=== PATIENT | female | born 1955 | race Caucasian/White ===

== ENCOUNTER 2020-01-23 21:16 | Emergency (ER) | payer MEDICARE, OTHER, SELFPAY ==
--- NOTE | ~2020-01-23 | XR_ITS ---
EXAMINATION: XR chest 2V DATE: 01/23/2020 22:09 INDICATION: Shortness of breath. TECHNIQUE: Frontal and lateral views of the chest were obtained. COMPARISON: Chest 2 views 05/08/2017, CT abdomen and pelvis/01/04 FINDINGS: There is no pneumonia, pleural effusion, or pneumothorax. Cardiomegaly is noted. IMPRESSION: 1. Cardiomegaly. Reviewed, dictated and finalized at location A. AND ALCOHOL COUNSELLOR IMPRESSION: 1. Cardiomegaly.
[2020-01-23 21:21] VITALS: BP 129/59; PULSE 89; RESP 24; TEMP 37; O2SAT 95
--- NOTE | 2020-01-23 21:35 | ED.WEAKNESS ---
HPI - Weakness General Chief complaint: Weakness Stated complaint: blood sugar high -500's/blood pressure 70/40 Time Seen by Provider: 01/23/20 21:26 Source: patient and family History of Present Illness HPI Narrative: 64-year-old female presents to emergency department for weakness and altered mental status tonight. Per family, patient had episode of dozing off tonight. Her daughter checked her blood sugar, which showed an elevated level. Additionally, patient had a low blood pressure reading. Patient usually walks with a walker, but is not having the energy to get up to use it. Patient denies any fever or chills. No chest pain or shortness of breath. No abdominal pain. No nausea or vomiting. Related Data Home Medications Medication Instructions Recorded Confirmed atorvastatin 10 mg tablet 10 mg PO DAILY 07/27/19 01/28/20 ferrous sulfate 325 mg (65 mg 325 mg PO DAILY 07/27/19 01/28/20 iron) tablet gabapentin 400 mg capsule 400 mg PO TID 07/27/19 01/28/20 levothyroxine 25 mcg capsule 25 mcg PO DAILY 07/27/19 01/28/20 lisinopril 40 mg tablet 40 mg PO DAILY 07/27/19 01/28/20 quetiapine 200 mg tablet 200 mg PO BID 07/27/19 01/28/20 paroxetine HCl 20 mg tablet 40 mg PO DAILY tablet 11/30/19 01/28/20 Allergies Allergy/AdvReac Type Severity Reaction Status Date / Time ciprofloxacin Allergy Mild Hives Verified 01/25/20 10:40 metronidazole Allergy Mild Hives Verified 01/25/20 10:40 divalproex sodium Allergy Unknown Unknown Verified 01/25/20 10:40 vancomycin Allergy Unknown Unknown Verified 01/25/20 10:40 Review of Systems Review of Systems: Narrative: CONSTITUTIONAL: Denies fever, chills, or sweats. EYES: Denies visual changes, redness, or discharge. ENT: Denies rhinorrhea, congestion, sore throat, or otalgia. CARDIOVASCULAR: Denies chest pain, palpitations, or edema. RESPIRATORY: Denies cough or dyspnea. GASTROINTESTINAL: Denies abdominal pain, nausea, vomiting, or diarrhea. GENITOURINARY: Denies dysuria or hematuria. SKIN: Denies rash or itching. MUSCULOSKELETAL: Denies back pain, joint pain, or myalgia. NEUROLOGIC: Denies headache, numbness, dizziness, or weakness. PSYCHIATRIC: Denies anxiety or depression. All systems reviewed & are unremarkable except as noted in HPI and below (ROS) PMFSH Past Medical History Medical History (Updated 01/28/20 @ 10:22 by Noreen Savage PA-C) Abnormality of gait and mobility Benign essential HTN Benign essential hypertension Brain hypoxia Chronic kidney disease due to diabetes mellitus RAMAN (generalized anxiety disorder) MALIA on CPAP Type 2 diabetes mellitus with hyperglycemia Family History Family History Father Diabetes mellitus Hypertension Patient's father is , Onset Age: 75 Family history of renal failure Mother Family history of malignant neoplasm of stomach Other Family history of arthritis Social History Social History (Updated 01/25/20 @ 10:41 by Nasreen oHlder, [facility]) Social History: Smoking status: Never smoker Second hand tobacco smoke exposure: No Alcohol intake: never Substance use: never Substance use type: does not use Living arrangements: with family Gender identity (if verbalized by the patient): Female Exam Narrative: Exam Narrative: GENERAL: Well-appearing, well-nourished, and in no acute distress. HEAD: Normocephalic, atraumatic. EYES: PERRLA and EOMI. ENT: Nares clear, no rhinorrhea or epistaxis. Mucous membranes moist. NECK: Supple. CHEST: Clear to auscultation. No respiratory distress. HEART: Regular rate and rhythm. No murmur heard. Normal peripheral pulses. ABDOMEN: Soft, nontender, nondistended, normal active bowel sounds. EXTREMITIES: Normal range of motion. No edema. SKIN: Warm, dry, no rash. NEURO: No focal deficits. Alert and oriented x3. PSYCH: Normal mood and affect. Course Reevaluation(s) Reevaluation #1: 2330 - BS 28
--- NOTE | 2020-01-23 21:36 | ECG_ITS ---
Measurements Intervals [employer] Rate: 76 P: 39 WI: 210 QRS: -16 QRSD: 121 T: 23 QT: 390 QTc: 441 Interpretive Statements SINUS RHYTHM WITH FIRST DEGREE AV BLOCK INTRAVENTRICULAR CONDUCTION DELAY DELAYED PRECORDIAL R/S TRANSITION ABNORMAL ECG Electronically Signed On 01-24-2020 7:08:02 FISH [employer]ER by Bulmaro Knight D.O.
[2020-01-23 21:47] VITALS: PULSE 76
--- NOTE | 2020-01-23 21:50 | PC.NURSE ---
Blood glucose was 567 at 21:49
[2020-01-23 21:51] LABS: Glucose Point of Care > 500 (65-105)
[2020-01-23] MEDS: SODIUM CHLORIDE 0.9% IV 1,000 ML 999 ML IV CONT ×2 (22:02→22:34)
[2020-01-23 22:08] LABS: Basophils Percent Auto 0.5 % (0.2-1.2); Eosinophils Absolute Auto 0.2 K/mm3 (0-0.3); Eosinophils Percent Auto 2.7 % (0-4.4); Fractional Inspired Oxygen 21 %; HCO3 VBG 23.6 mEq/l (24.0-30.0); Hematocrit 35.5 % (37.0-47.0); Hemoglobin 11.4 g/dL (12.0-15.0); Immature Granulocyte Absolute 0.03 K/mm3 (0.00-0.031); Immature Granulocyte Percent A 0.5 % (0-0.5); Lymphocytes Absolute Auto 1.49 K/mm3 (0.9-3.2); Lymphocytes Percent Auto 25.2 % (18.3-44.2); Mean Corpuscular HGB Conc 32.1 g/dl (32-36); Mean Corpuscular Hemoglobin 30.6 pg (26-34); Mean Corpuscular Volume 95.2 fl (80-100); Mean Platelet Volume 10.4 fl (7.4-10.4); Monocytes Absolute Auto 0.5 K/mm3 (0.1-0.6); Neutrophils Absolute Auto 3.7 K/mm3 (1.3-6.7); Neutrophils Percent Auto 62.1 % (45.5-73.1); PCO2 VBG 44.9 mmHg (42.0-48.0); PO2 VBG 49.1 mmHg (35.0-45.0); Platelet Count Result 244 k/mm3 (150-375); Red Blood Count 3.73 M/mm3 (4.2-5.4); Red Cell Distribution Width 14.6 % (11.5-14.5); White Blood Count 5.9 K/mm3 (4.5-10.0); pH VBG 7.339 (7.300-7.400)
[2020-01-23 22:09] LABS: Device ROOM AIR
[2020-01-23 22:22] LABS: Alanine Aminotransferase 36 U/L (4-35); Albumin Level 3.9 g/dL (3.5-5.1); Alkaline Phosphatase 190 U/L (38-126); Anion Gap 12 mmol/L (8-16); Aspartate Amino Transferase 23 U/L (14-36); Bilirubin,Total 0.4 mg/dL (0.2-1.3); Blood Urea Nitrogen 39 mg/dL (7-17); Calcium 9.7 mg/dL (8.4-10.2); Carbon Dioxide 26 mmol/L (22-30); Chloride 95 mmol/L (98-107); Estimated CRCL calculation 45 ml/min; Estimated Glomerular Filt Rate 32; Glucose 559 mg/dL (65-105); Potassium 4.7 mmol/L (3.4-5.0); Sodium 133 mmol/L (137-145)
[2020-01-23 22:25] LABS: Beta-Hydroxybutyrate/Acetoacetate 0.18 mmol/L (0.02-0.27)
[2020-01-23 22:26] VITALS: BP 104/53; PULSE 78; RESP 16; O2SAT 98
[2020-01-23] MEDS: INSULIN HUMAN REGULAR (*BKC) 100 UNITS/ML 10 UNITS IV PUSH (22:35)
--- NOTE | 2020-01-23 23:05 | PC.NURSE ---
Assumed care of pt. Report from ELLYN Robert
--- NOTE | 2020-01-23 23:21 | PC.NURSE ---
Pt. waiting for fluids to attempt for urine sample
[2020-01-24 00:01] VITALS: BP 121/67; PULSE 84; RESP 14; O2SAT 97
[2020-01-24 06:06] LABS: Glucose Point of Care 289 (65-105)
== END 2020-01-24 00:01 | disposition home or self-care (01) ==
PROVIDERS: Emergency Provider Emergency Medicine; PCP Family Medicine
DX: E11.65 Type 2 diabetes mellitus with hyperglycemia (principal); R55 Syncope and collapse; E11.22 Type 2 diabetes mellitus with diabetic chronic kidney disease; I12.9 Hypertensive chronic kidney disease with stage 1 through stage 4 chronic kidney disease, or unspecified chronic kidney disease; N18.9 Chronic kidney disease, unspecified; F41.1 Generalized anxiety disorder; G47.33 Obstructive sleep apnea (adult) (pediatric); I44.0 Atrioventricular block, first degree; I45.9 Conduction disorder, unspecified
CPT/HCPCS: 36415; 71046; 80053; 82010; 82803; 85025; 93005; 96361; 96374; 99284; J1815; J7030

== ENCOUNTER 2020-05-12 07:44 | Observation (INO) | payer MEDICARE, OTHER, SELFPAY ==
[2020-05-12] VITALS (19 sets, daily range): BP systolic 120–192; BP diastolic 74–119; PULSE 69–92; RESP 12–20; TEMP 36.2–36.8; O2SAT 96–100; BMI 40.0
--- NOTE | ~2020-05-12 | XR_ITS ---
EXAMINATION: XR chest 1V portable EXAM DATE: 05/12/2020 08:31 INDICATION: Cough. Transient alteration of awareness. TECHNIQUE: Portable AP frontal chest x-ray was obtained. Comparison is made to prior examination from 01/23/2020. FINDINGS: Patient is rotated to the right. The lungs are clear. There are no pleural effusions. The cardiac silhouette is enlarged. There is no pneumothorax suspected. The bones and soft tissues ar e unremarkable. IMPRESSION: Mild cardiomegaly. Reviewed, dictated and finalized at location B. OW PUMPER IMPRESSION: Mild cardiomegaly.
--- NOTE | ~2020-05-12 | CT_ITS ---
EXAMINATION: CT brain wo con DATE: 05/12/2020 09:08 INDICATION: Altered mental status, agitation TECHNIQUE: Computed tomography (CT) of the head was performed without intravenous contrast. The mA wa s adjusted according to patient size. Iterative reconstruction technique was employed. Exam dose: 68 1.00 mGy-cm total exam DLP. COMPARISON: 07/21/2018 MRI brain/brainstem 06/29/2017 MRI brain/brainstem 05/07/[address] brain FINDINGS: Stable left cerebellopontine angle mass, previously suggested meningioma. There is cerebral atherosclerosis. There is nonspecific diminished attenuation of the subcortical and periventricular cerebral white matter, likely due to chronic small vessel ischemic changes. No intracranial mass lesion or hemorrhage or cerebrovascular accident is evident. No midline shift or mass effect effect. No subdural or epidural hematoma. Bilateral hyperostosis frontalis interna, not likely of any clinical significance. There is nearly complete opacification of the right maxillary sinus and soft tissue thickening of the ethmoid septae, primarily on the right. The left maxillary, sphenoid and frontal sinuses are unremar kable. Normal development and aeration of the mastoid air cells. No fracture or bone destruction of the cranial vault. IMPRESSION: Stable left cerebellopontine angle mass Cerebral atherosclerosis and chronic small vessel ischemic changes of the cerebral white matter Nearly complete opacification of right maxillary sinus Reviewed, dictated and finalized at Location [facility]. Reviewed, dictated and finalized at location A. MIXER IMPRESSION: Stable left cerebellopontine angle mass Cerebral atherosclerosis and chronic small vessel ischemic changes of the cereb ral white matter Nearly complete opacification of right maxillary sinus
--- NOTE | 2020-05-12 07:59 | ED.GENADULT ---
HPI - General Adult General Chief complaint: Anxiety Stated complaint: agitation Time Seen by Provider: 05/12/20 07:46 Source: RN notes reviewed History of Present Illness HPI narrative: Patient presents emergency department from home for not feeling well. Patient states that she has been having nausea for the past 3 days she states that today she began to feel like something is wrong inside my body . She states that she has been out of her benztropine for the past 5 days and is normally on 0.5 mg 3 times daily patient states that she has had no fevers or chills no chest pain no shortness of breath no abdominal pain no vomiting no diarrhea or any other symptoms Related Data Home Medications Medication Instructions Recorded Confirmed atorvastatin 10 mg tablet 10 mg PO DAILY 07/27/19 05/12/20 ferrous sulfate 325 mg (65 mg 325 mg PO DAILY 07/27/19 05/12/20 iron) tablet gabapentin 400 mg capsule 400 mg PO TID 07/27/19 05/12/20 levothyroxine 25 mcg capsule 25 mcg PO DAILY 07/27/19 05/12/20 lisinopril 40 mg tablet 40 mg PO DAILY 07/27/19 05/12/20 quetiapine 200 mg tablet 200 mg PO BID 07/27/19 05/12/20 benztropine 0.5 mg PO TID 05/12/20 05/12/20 dapagliflozin [Farxiga] 10 mg PO DAILY 05/12/20 05/12/20 insulin detemir U-100 [Levemir 45 unit SUB-Q BID 05/12/20 05/12/20 FlexTouch U-100 Insuln] lactulose 10 g PO BID 05/12/20 05/12/20 melatonin 10 mg PO HS PRN 05/12/20 05/12/20 paroxetine HCl 20 mg PO QAM 05/12/20 05/12/20 Allergies Allergy/AdvReac Type Severity Reaction Status Date / Time ciprofloxacin Allergy Mild Hives Verified 05/12/20 12:08 metronidazole Allergy Mild Hives Verified 05/12/20 12:08 divalproex sodium Allergy Unknown Unknown Verified 05/12/20 12:08 vancomycin Allergy Unknown Unknown Verified 05/12/20 12:08 Review of Systems Review of Systems: Narrative: Gen.: Denies fevers or chills reports generally not feeling well Eyes: Denies eye pain or visual change ENT: Denies congestion Respiratory: Denies shortness of breath or cough CV: Denies chest pain or palpitations GI: Denies abdominal pain vomiting or diarrhea. Reports nausea denies burning, urgency, frequency or hematuria Musculoskeletal: Denies back pain or muscle pain Neuro: Denies numbness, tingling, weakness or focal weakness Skin: Denies rash Except as documented, all other systems reviewed and negative [facility] Past Medical History Medical History Abnormality of gait and mobility Benign essential HTN Benign essential hypertension Brain hypoxia Chronic kidney disease due to diabetes mellitus RAMAN (generalized anxiety disorder) MALIA on CPAP Type 2 diabetes mellitus with hyperglycemia Family History Family History Father Diabetes mellitus Hypertension Patient's father is , Onset Age: 75 Family history of renal failure Mother Family history of malignant neoplasm of stomach Other Family history of arthritis Social History Social History Social History: Smoking status: Never smoker Second hand tobacco smoke exposure: No Alcohol intake: never Substance use: never Substance use type: marijuana Other substance usage details: on occasion; afraid to ask doctor for a prescription, but it helps symptoms Gender identity (if verbalized by the patient): Female Spiritual care concerns: No Exam Narrative: Exam Narrative: APPEARANCE: Patient rolling around in bed nontoxic EYES: PERRL HEENT: Normocephalic, atraumatic, OMM RESPIRATORY: No respiratory distress Clear to auscultation bilaterally with no rhonchi wheezing or rales. CARDIOVASCULAR: Regular rate and rhythm without murmurs rubs or gallops. ABDOMINAL: Soft, nontender, nondistended, no rebound or guarding MUSCULOSKELETAl: Moves all extremities. No clubbing, cyanosis or edema. NEURO: Awake and
[2020-05-12] MEDS: BENZTROPINE MESYLATE 0.5 MG TABLET PO ×2 (08:17→16:01)
[2020-05-12 08:18] LABS: Basophils Percent Auto 0.3 % (0.2-1.2); Eosinophils Absolute Auto 0.2 K/mm3 (0-0.3); Eosinophils Percent Auto 2.8 % (0-4.4); Hematocrit 41.4 % (37.0-47.0); Hemoglobin 13.3 g/dL (12.0-15.0); Immature Granulocyte Absolute 0.02 K/mm3 (0.00-0.031); Immature Granulocyte Percent A 0.3 % (0-0.5); Lymphocytes Absolute Auto 1.67 K/mm3 (0.9-3.2); Lymphocytes Percent Auto 26.1 % (18.3-44.2); Mean Corpuscular HGB Conc 32.1 g/dl (32-36); Mean Corpuscular Hemoglobin 29.9 pg (26-34); Mean Platelet Volume 9.1 fl (7.4-10.4); Monocytes Absolute Auto 0.5 K/mm3 (0.1-0.6); Monocytes Percent Auto 7.5 % (2.6-8.5); Platelet Count Result 271 k/mm3 (150-375); Red Blood Count 4.45 M/mm3 (4.2-5.4); Red Cell Distribution Width 14.2 % (11.5-14.5); White Blood Count 6.4 K/mm3 (4.5-10.0)
[2020-05-12 08:30] LABS: Alanine Aminotransferase 25 U/L (4-35); Albumin Level 4.1 g/dL (3.5-5.1); Alkaline Phosphatase 118 U/L (38-126); Anion Gap 10 mmol/L (8-16); Aspartate Amino Transferase 25 U/L (14-36); Bilirubin,Total 0.4 mg/dL (0.2-1.3); Blood Urea Nitrogen 24 mg/dL (7-17); Calcium 9.6 mg/dL (8.4-10.2); Carbon Dioxide 21 mmol/L (22-30); Chloride 112 mmol/L (98-107); Estimated CRCL calculation 59 ml/min; Estimated Glomerular Filt Rate 45; Glucose 128 mg/dL (65-105); Prothrombin Time 13.9 Seconds (11.1-14.7); Sodium 143 mmol/L (137-145)
[2020-05-12 08:31] LABS: Partial Thromboplastin Time 31.4 SECONDS (22.3-36.8)
[2020-05-12 08:53] LABS: Add Urine Microscopic? YES; Appearance Urine Clear (Clear); Bilirubin Urine Negative (Negative); Blood Urine Negative (Negative); Color Urine Yellow (Yellow); Glucose Urine UA 3+ mg/dL (Negative); Ketones Urine Negative (Negative); Leukocyte Esterase Ur Negative LEU/UL (Negative); Mucus Urine Rare /lpf; Nitrate Urine Negative (Negative); Protein Urine 2+ mg/dL (Negative); RBC Urine 0-2 /hpf (0-2); Specific Grav Ur 1.025 (1.001-1.035); Squamous Epithelial Cell Urine Rare /hpf (Few); Urobilinogen Urine Negative mg/dL (<2.0); WBC Urine 0-3 /hpf
[2020-05-12] MEDS: ONDANSETRON INJ 4 MG/2 ML VIAL IV PUSH ×3 (09:44→22:11)
--- NOTE | 2020-05-12 11:40 | ADMGEN ---
This patient, Christine Michel, was admitted to -. Patient/family oriented to hospital policies and general routines including ID bracelet, bed and alarms, visiting hours, pain management, procedures, bathroom and other care routines, personal items, smoking policy, room service/diet, and visiting hours. Information on how to activate the Rapid Response Team has been discussed. Patient/Family are encouraged to report perceived risks to care and to ask questions if they do not understand what they are told or what they should do.
[2020-05-12] MEDS: SODIUM CHLORIDE 0.9% IV 1,000 ML 80 ML IV CONT (12:17)
--- NOTE | 2020-05-12 13:36 | PM.IMHP ---
H&P: HPI History of Present Illness Date/Time: 05/12/20 13:36 Chief Complaint: Nausea and vomiting. Narrative: Christine Michel is a 65 year old female with PMHx significant for T2DM insulin dependent, Alzheimer's Dementia,Iron deficiency anemia, Psychiatry illness well controlled at home. Patient has been in her usual state of health up until about a week or so when she run off her Benztropine medication and came down with dyskinesis nausea and vomiting for about 3 days now that got worse over the course of the last 24 hours or with intractable nausea and vomiting unable to keep anything down most of the history has been obtained by the that is sitting bedside, no fevers, no rigors, no chills, no cough, no sputum production, no hematemesis, no hematochezia, no loc, no syncope or near syncope, no sob. Preliminary work up is unrevealing. Patient received fluids and feels better no discomfort at time of visit. Review of Systems Review of Systems: Narrative: n/v/dyskinesia Constitutional: Comments: no fevers, no rigors, no chills. ENT: Comments: no nasal congestion, throat pain Cardiovascular: Comments: no chest pain, no pnd, no orthopnea. Respiratory: Comments: no sob, no cough, no sputum production. Gastrointestinal: Comments: n/v/ no abdominal pain. Genitourinary: Comments: no burning or pain with urination. Musculoskeletal: Comments: twitching Integumentary/Breasts: Comments: no rashes Neurologic: Comments: no sensory motor deficit [facility] Past Medical History Medical History Abnormality of gait and mobility Benign essential HTN Benign essential hypertension Brain hypoxia Chronic kidney disease due to diabetes mellitus RAMAN (generalized anxiety disorder) MALIA on CPAP Type 2 diabetes mellitus with hyperglycemia Family History Family History Father Diabetes mellitus Hypertension Patient's father is , Onset Age: 75 Family history of renal failure Mother Family history of malignant neoplasm of stomach Other Family history of arthritis Social History Social History Social History: Smoking status: Never smoker Second hand tobacco smoke exposure: No Alcohol intake: never Substance use: never Substance use type: marijuana Other substance usage details: on occasion; afraid to ask doctor for a prescription, but it helps symptoms Gender identity (if verbalized by the patient): Female Spiritual care concerns: No Meds Home Medications and Allergies Home Medications Medication Instructions Recorded Confirmed Type atorvastatin 10 mg tablet 10 mg PO DAILY 07/27/19 05/12/20 History ferrous sulfate 325 mg (65 mg 325 mg PO DAILY 07/27/19 05/12/20 History iron) tablet gabapentin 400 mg capsule 400 mg PO TID 07/27/19 05/12/20 History levothyroxine 25 mcg capsule 25 mcg PO DAILY 07/27/19 05/12/20 History lisinopril 40 mg tablet 40 mg PO DAILY 07/27/19 05/12/20 History quetiapine 200 mg tablet 200 mg PO BID 07/27/19 05/12/20 History clonidine HCl 0.1 mg tablet 0.1 mg PO BID #60 tablet 01/01/20 05/12/20 Rx dulaglutide 1.5 mg/0.5 mL 1.5 mg SUBCUT WEEKLY #2 ml 01/01/20 05/12/20 Rx subcutaneous pen injector flash glucose scanning reader #1 ea 01/01/20 05/12/20 Rx flash glucose sensor #1 ea 01/01/20 05/12/20 Rx pen needle, diabetic 31 gauge x #400 ea 02/07/20 05/12/20 Rx 5/16 metoprolol tartrate 50 mg tablet 50 mg PO BID #180 tablet 03/11/20 05/12/20 Rx insulin aspart U-100 100 unit/mL 5 unit SUBCUT TID #15 ml 04/14/20 05/12/20 Rx (3 mL) subcutaneous pen benztropine 0.5 mg PO TID 05/12/20 05/12/20 History dapagliflozin [Farxiga] 10 mg PO DAILY 05/12/20 05/12/20 History insulin detemir U-100 [Levemir 45 unit SUB-Q BID 05/12/20 05/12/20 History FlexTouch U-100 Insuln] lactulose 10 g PO BID 05/12/2004/22
[2020-05-12] MEDS: DEXTROSE 5%/0.45% SOD CHL 1,000 ML 85 ML IV CONT (14:06)
[2020-05-12] MEDS: LACTULOSE 20 GM/30 ML UDC 10 GM PO (16:00)
[2020-05-12] MEDS: GABAPENTIN 400 MG CAPSULE PO (16:00)
[2020-05-12] MEDS: METOPROLOL TARTRATE 50 MG TAB PO (16:00)
[2020-05-12] MEDS: LORazepam INJ (*CRX) 2 MG/ML VIAL 1 MG IV PUSH ×2 (16:01→22:11)
[2020-05-12] MEDS: cloNIDine HCL 0.1 MG TABLET PO (16:01)
[2020-05-12 19:26] LABS: Glucose Point of Care 135 (65-105)
[2020-05-12] MEDS: QUEtiapine FUMARATE 100 MG TABLET 200 MG PO (21:16)
[2020-05-12] MEDS: MELATONIN 5 MG TABLET 10 MG PO (21:17)
[2020-05-12] MEDS: INSULIN DETEMIR 100 UNITS/ML 45 UNITS SUB-Q (21:18)
[2020-05-12 21:21] LABS: Glucose Point of Care 128 (65-105)
[2020-05-13] MEDS: DEXTROSE 5%/0.45% SOD CHL 1,000 ML 85 ML IV CONT ×2 (02:28→14:45)
[2020-05-13 05:46] VITALS: BP 151/91; PULSE 82; RESP 16; TEMP 36.3; O2SAT 98
[2020-05-13] MEDS: LORazepam INJ (*CRX) 2 MG/ML VIAL 1 MG IV PUSH (05:57)
[2020-05-13] MEDS: LEVOTHYROXINE SODIUM 25 MCG TABLET PO (05:57)
[2020-05-13] MEDS: ONDANSETRON INJ 4 MG/2 ML VIAL IV PUSH (05:57)
[2020-05-13 06:37] LABS: Basophils Percent Auto 0.5 % (0.2-1.2); Eosinophils Absolute Auto 0.2 K/mm3 (0-0.3); Eosinophils Percent Auto 4.9 % (0-4.4); Hematocrit 37.8 % (37.0-47.0); Hemoglobin 11.8 g/dL (12.0-15.0); Immature Granulocyte Absolute 0.02 K/mm3 (0.00-0.031); Immature Granulocyte Percent A 0.5 % (0-0.5); Immature Platelet Fraction Pct 3.3 % (0.9-11.2); Lymphocytes Percent Auto 32.4 % (18.3-44.2); Mean Corpuscular HGB Conc 31.2 g/dl (32-36); Mean Corpuscular Hemoglobin 30.3 pg (26-34); Mean Corpuscular Volume 97.2 fl (80-100); Mean Platelet Volume 10.1 fl (7.4-10.4); Monocytes Absolute Auto 0.4 K/mm3 (0.1-0.6); Monocytes Percent Auto 8.6 % (2.6-8.5); Neutrophils Absolute Auto 2.3 K/mm3 (1.3-6.7); Neutrophils Percent Auto 53.1 % (45.5-73.1); Platelet Count Result 192 k/mm3 (150-375); Red Blood Count 3.89 M/mm3 (4.2-5.4); Red Cell Distribution Width 14.4 % (11.5-14.5); White Blood Count 4.3 K/mm3 (4.5-10.0)
[2020-05-13] MEDS: GABAPENTIN 400 MG CAPSULE PO ×3 (08:15→16:55)
[2020-05-13] MEDS: LACTULOSE 20 GM/30 ML UDC 10 GM PO ×2 (08:15→16:54)
[2020-05-13] MEDS: BENZTROPINE MESYLATE 0.5 MG TABLET PO ×3 (08:15→16:55)
[2020-05-13] MEDS: PARoxetine 20 MG TABLET PO (08:16)
[2020-05-13] MEDS: lisinopriL 20 MG TABLET 40 MG PO (08:16)
[2020-05-13] MEDS: QUEtiapine FUMARATE 100 MG TABLET 200 MG PO (08:16)
[2020-05-13 08:17] VITALS: PULSE 83
[2020-05-13] MEDS: cloNIDine HCL 0.1 MG TABLET PO ×2 (08:17→17:01)
[2020-05-13] MEDS: METOPROLOL TARTRATE 50 MG TAB PO ×2 (08:17→16:56)
[2020-05-13] MEDS: INSULIN DETEMIR 100 UNITS/ML 45 UNITS SUB-Q (08:18)
[2020-05-13 08:25] LABS: Glucose Point of Care 124 (65-105)
[2020-05-13 08:55] LABS: Anion Gap 5 mmol/L (8-16); Blood Urea Nitrogen 21 mg/dL (7-17); Carbon Dioxide 29 mmol/L (22-30); Chloride 109 mmol/L (98-107); Estimated CRCL calculation 58 ml/min; Estimated Glomerular Filt Rate 45; Glucose 131 mg/dL (65-105); Potassium 3.9 mmol/L (3.4-5.0); Sodium 143 mmol/L (137-145)
--- NOTE | 2020-05-13 11:01 | WPDNEURCNPN ---
Assessment and Plan Assessment and plan (1) Withdrawal syndrome: Code(s): F19.239 - Other psychoactive substance dependence with withdrawal, unspecified Status: Acute (2) Type 2 diabetes mellitus with hyperglycemia: Code(s): E11.65 - Type 2 diabetes mellitus with hyperglycemia Status: Acute (3) Abnormality of gait and mobility: Code(s): R26.9 - Unspecified abnormalities of gait and mobility Status: Acute (4) Meningioma: Code(s): D32.9 - Benign neoplasm of meninges, unspecified Status: Acute Additional Plan stable, meds reviewed no changes suggestive, routine lab no significant abnormalities CT head with left CP angle meningioma but no clinical neurological deficit at this stage will discuss with her Consult date: 05/13/20 Time Seen: 11:30 HPI: 65 years old right-handed female has been admitted to [facility] for the complaints of nausea and vomiting in addition to history of diabetes mellitus insulin-dependent type 2, Alzheimer's disease, iron deficiency anemia. She was in her usual state of health up until about a week ago when she ran out of her benztropine and developed dyskinesia with vomiting which was gradually getting worse. she has ongoing history of gait dysfunction, hypertension chronic renal disease secondary to diabetes mellitus, generalized anxiety disorder, obstructive sleep apnea and on CPAP, as mentioned above type 2 diabetes mellitus.. Routine blood studies up until now revealed normal CBC, normal basic metabolic panel with chloride 109 BUN 21 creatinine 1.2 estimated GFR of 45, CT head with the left cerebellopontine angle mass as documented previously also and complete opacification of the right maxillary sinus Review of Systems Review of Systems: All systems reviewed & are unremarkable except as noted in HPI and below PMFSH Past Medical History Medical History Abnormality of gait and mobility Benign essential HTN Benign essential hypertension Brain hypoxia Chronic kidney disease due to diabetes mellitus RAMAN (generalized anxiety disorder) MALIA on CPAP Type 2 diabetes mellitus with hyperglycemia Family History Family History Father Diabetes mellitus Hypertension Patient's father is , Onset Age: 75 Family history of renal failure Mother Family history of malignant neoplasm of stomach Other Family history of arthritis Social History Social History Social History: Smoking status: Never smoker Second hand tobacco smoke exposure: No Alcohol intake: never Substance use: never Substance use type: marijuana Other substance usage details: on occasion; afraid to ask doctor for a prescription, but it helps symptoms Gender identity (if verbalized by the patient): Female Spiritual care concerns: No Meds Home Medications and Allergies Home Medications Medication Instructions Recorded Confirmed Type atorvastatin 10 mg tablet 10 mg PO DAILY 07/27/19 05/12/20 History ferrous sulfate 325 mg (65 mg 325 mg PO DAILY 07/27/19 05/12/20 History iron) tablet gabapentin 400 mg capsule 400 mg PO TID 07/27/19 05/12/20 History levothyroxine 25 mcg capsule 25 mcg PO DAILY 07/27/19 05/12/20 History lisinopril 40 mg tablet 40 mg PO DAILY 07/27/19 05/12/20 History quetiapine 200 mg tablet 200 mg PO BID 07/27/19 05/12/20 History clonidine HCl 0.1 mg tablet 0.1 mg PO BID #60 tablet 01/01/20 05/12/20 Rx dulaglutide 1.5 mg/0.5 mL 1.5 mg SUBCUT WEEKLY #2 ml 01/01/20 05/12/20 Rx subcutaneous pen injector flash glucose scanning reader #1 ea 01/01/20 05/12/20 Rx flash glucose sensor #1 ea 01/01/20 05/12/20 Rx pen needle, diabetic 31 gauge x #400 ea 02/07/20 05/12/20 Rx 5/16 metoprolol tartrate 50 mg tablet 50 mg PO BID #180 tablet 03/11/20 05/12/20 Rx insulin aspart U-100 100 uni
[2020-05-13 12:27] LABS: Glucose Point of Care 138 (65-105)
[2020-05-13 14:00] VITALS: BP 117/60; PULSE 72; RESP 16; TEMP 36.1; O2SAT 97
--- NOTE | 2020-05-13 15:52 | PM.DS ---
DS: Admitting Diagnosis Admitting Diagnosis Admitting Diagnosis: Nausea, vomiting, and dyskinesia due to medication withdrawal DS: Discharge Diagnosis Discharge Diagnosis (1) Withdrawal syndrome: Code(s): F19.239 - Other psychoactive substance dependence with withdrawal, unspecified Status: Acute Assessment and Plan: Discharge Summary (Date of service 05/13/20): Mrs. Michel is a 65 y.o. female with PMH significant for bipolar disorder, generalized anxiety disorder, MALIA on CPAP, DM III with CKD, hypertension, and Alzheimer's dementia who presented to the emergency department on 05/12/20 for the evaluation of nausea, vomiting, and dyskinesia after she ran out of her benztropine. She reported symptoms for 3 days and was out of her benztropine for 5 days. She had no other acute complaints. Initial workup in the emergency department showed Cr 1.2 and BUN 24, chloride 112, glucose 128, and labs otherwise unremarkable. CXR showed mild cardiomegaly and CT brain showed stable left cerebellopontine angle mass, cerebral atherosclerosis and chronic small vessel disease, and right sinus opacification. She was given benztropine in the emergency department with improvement. Neurology was consulted and she was admitted to the hospitalist service. Her symptoms were felt secondary to abrupt benztropine withdrawal and resolved when it was resumed. She was tolerating a consistent carb diet well with no further nausea and vomiting and also noted no further dyskinesias. She was seen by neurology, Dr. Bhagat, and felt stable for discharge. She was able to get the benztropine refilled and will see Dr. Colbert, her psychiatrist, for follow-up within 1 week. She also needs to see her PCP in 1 week for a hospital follow-up. I did call the pharmacy to ensure she had a refill available to [facility] or picker the day of discharge. Her daughter verbalized that she would pick this up for her. CT brain demonstrated a stable left cerebellopontine angle mass, felt most consistent with meningioma, and she will plan to see neurology outpatient in 6-8 weeks for follow-up and referral to neurosurgery. I discussed this finding with the patient and her daughter and they verbalized understanding in the need for neurology follow-up. She was discharged in hemodynamically stable condition on the afternoon of 05/13/20. Worrisome signs and symptoms which would warrant return to the emergency department were discussed and she verbalized understanding. (2) MALIA on CPAP: Code(s): G47.33 - Obstructive sleep apnea (adult) (pediatric); Z99.89 - Dependence on other enabling machines and devices Status: Acute Assessment and Plan: CPAP was continued at night time. (3) Benign essential HTN: Code(s): I10 - Essential (primary) hypertension Status: Chronic Assessment and Plan: Blood pressures were monitored and elevated initially but did improve significantly with most recent BP 117/60. Clonidine, lisinopril, and metoprolol were continued. Recommend close outpatient follow-up and home BP monitoring. (4) RAAMN (generalized anxiety disorder): Code(s): F41.1 - Generalized anxiety disorder Status: Chronic Assessment and Plan: Chronic and stable. Her home regimen was continued. (5) Chronic obstructive pulmonary disease: Qualifiers: COPD type: unspecified COPD Qualified Code(s): J44.9 - Chronic obstructive pulmonary disease, unspecified Code(s): J44.9 - Chronic obstructive pulmonary disease, unspecified Status: Chronic Assessment and Plan: Chronic and stable with no acute issues. (6) Meningioma: Code(s): D32.9 - Benign neoplasm of meninges, unspecified Status: Acute Assessment and Plan: CT brain demonstrated a stable left cerebellopontine angle mass, felt most consistent with meningioma, and she will plan to see neurology outpatient in 6-8 weeks for follow-up and referral to neurosurgery. I
[2020-05-13 16:56] VITALS: PULSE 73
== END 2020-05-13 17:27 | disposition home or self-care (01) ==
LOC: ANHED 11:03 → ANH3MED 12:07
PROVIDERS: Admitting Provider Family Medicine; Emergency Provider Emergency Medicine; PCP Family Medicine; Visit Provider Physician Assistant
DX: F19.239 Other psychoactive substance dependence with withdrawal, unspecified (principal); F31.9 Bipolar disorder, unspecified; F41.1 Generalized anxiety disorder; D32.9 Benign neoplasm of meninges, unspecified; E11.65 Type 2 diabetes mellitus with hyperglycemia; E11.22 Type 2 diabetes mellitus with diabetic chronic kidney disease; G30.9 Alzheimer's disease, unspecified; G47.33 Obstructive sleep apnea (adult) (pediatric); I12.9 Hypertensive chronic kidney disease with stage 1 through stage 4 chronic kidney disease, or unspecified chronic kidney disease; F02.80 Dementia in other diseases classified elsewhere, unspecified severity, without behavioral disturbance, psychotic disturbance, mood disturbance, and anxiety; I51.7 Cardiomegaly; J44.9 Chronic obstructive pulmonary disease, unspecified; N18.9 Chronic kidney disease, unspecified; Z79.4 Long term (current) use of insulin
CPT/HCPCS: 36415; 51701; 70450; 71045; 80048; 80053; 81001; 82948; 85025; 85055; 85610; 85730; 96361; 96374; 96375; 96376; 99285; A9270; G0378; J1815; J2060; J2405; J7030

== ENCOUNTER 2020-07-03 09:10 | Outpatient (CLI) | payer MEDICARE, OTHER, SELFPAY | END 2020-07-03 09:11 | disposition home or self-care (01) | LOC: ANHCOVIDVC 09:10 | PROVIDERS: PCP Family Medicine | DX: Z23 Encounter for immunization (principal) | CPT/HCPCS: 0001A; 91300 ==

== ENCOUNTER 2020-07-24 09:01 | Outpatient (CLI) | payer MEDICARE, OTHER, SELFPAY | END 2020-07-24 09:02 | disposition home or self-care (01) | LOC: ANHCOVIDVC 09:01 | PROVIDERS: PCP Family Medicine | DX: Z23 Encounter for immunization (principal) | CPT/HCPCS: 0002A; 91300 ==

== ENCOUNTER 2020-07-28 09:15 | Outpatient (RCR) | payer MEDICARE, OTHER, SELFPAY ==
[2020-05-06 10:58] VITALS: BMI 41.5
[2020-05-06 12:32] VITALS: BMI 41.5
== END 2020-07-28 11:11 | disposition home or self-care (01) ==
LOC: ANHDMC 09:15
PROVIDERS: PCP Family Medicine; Visit Provider Physician Assistant
DX: E11.65 Type 2 diabetes mellitus with hyperglycemia (principal); Z71.3 Dietary counseling and surveillance; Z71.89 Other specified counseling
CPT/HCPCS: 97802; G0108

== ENCOUNTER 2020-09-05 09:02 | Outpatient (CLI) | payer MEDICARE, OTHER, SELFPAY ==
--- NOTE | ~2020-09-05 | MM_ITS ---
EXAMINATION: MM screening [facility] BI w joaquina HISTORY: Screening mammogram TECHNIQUE: Craniocaudal and mediolateral oblique 3-D tomosynthesis images were obtained and synthetic 2-D images were generated. CAD analysis was submitted and interpreted. COMPARISON: 08/24/2018, 12/14/2013, 10/13/2010, 02/16/2007 BREAST PARENCHYMAL COMPOSITION: The breasts are almost entirely fatty. FINDINGS: There is no evidence of suspicious mass, calcification, or architectural distortion to sugg est malignancy in either breast. There has been no suspicious interval change. IMPRESSION: 1. No mammographic evidence of malignancy. 2. Recommend routine screening mammography in one year. BI-RADS Category 1: Negative Reviewed, dictated and finalized at location A.
== END 2020-09-05 09:03 | disposition home or self-care (01) ==
LOC: ANHIMG 09:05
PROVIDERS: PCP Family Medicine; Visit Provider Student in an Organized Health Care Education/Training Program
DX: Z12.31 Encounter for screening mammogram for malignant neoplasm of breast (principal)
CPT/HCPCS: 77063; 77067

== ENCOUNTER 2020-10-07 09:00 | Outpatient (RCR) | payer MEDICARE, OTHER, SELFPAY | END 2020-10-07 12:17 | disposition home or self-care (01) | LOC: ANHDMC 09:00 | PROVIDERS: PCP Family Medicine; Visit Provider Physician Assistant | DX: E11.65 Type 2 diabetes mellitus with hyperglycemia (principal); Z71.89 Other specified counseling | CPT/HCPCS: G0108 ==

== ENCOUNTER 2020-11-27 09:44 | Emergency (ER) | payer MEDICARE, OTHER, SELFPAY ==
[2020-11-27] VITALS (12 sets, daily range): BP systolic 126–174; BP diastolic 66–92; PULSE 66–79; RESP 15–18; TEMP 36; O2SAT 96–100
[2020-11-27 11:11] LABS: Add Urine Microscopic? YES; Appearance Urine Clear (Clear); Bilirubin Urine Negative (Negative); Blood Urine Negative (Negative); Color Urine Yellow (Yellow); Glucose Urine UA 3+ mg/dL (Negative); Ketones Urine Negative (Negative); Leukocyte Esterase Ur Negative LEU/UL (Negative); Nitrate Urine Negative (Negative); Protein Urine Negative (Negative); RBC Urine 0-2 /hpf (0-2); Specific Grav Ur 1.021 (1.001-1.035); Urobilinogen Urine Negative mg/dL (<2.0); WBC Urine 0-3 /hpf
[2020-11-27 11:40] LABS: Basophils Percent Auto 0.3 % (0.2-1.2); Eosinophils Absolute Auto 0.2 K/mm3 (0-0.3); Eosinophils Percent Auto 2.9 % (0-4.4); Hematocrit 37.7 % (37.0-47.0); Hemoglobin 11.4 g/dL (12.0-15.0); Immature Granulocyte Absolute 0.02 K/mm3 (0.00-0.031); Immature Granulocyte Percent A 0.3 % (0-0.5); Lymphocytes Absolute Auto 1.42 K/mm3 (0.9-3.2); Lymphocytes Percent Auto 23.9 % (18.3-44.2); Mean Corpuscular HGB Conc 30.2 g/dl (32-36); Mean Corpuscular Hemoglobin 29.4 pg (26-34); Mean Corpuscular Volume 97.2 fl (80-100); Mean Platelet Volume 10.9 fl (7.4-10.4); Monocytes Absolute Auto 0.5 K/mm3 (0.1-0.6); Monocytes Percent Auto 8.8 % (2.6-8.5); Neutrophils Absolute Auto 3.8 K/mm3 (1.3-6.7); Neutrophils Percent Auto 63.8 % (45.5-73.1); Platelet Count Result 160 k/mm3 (150-375); Red Blood Count 3.88 M/mm3 (4.2-5.4); Red Cell Distribution Width 15.9 % (11.5-14.5); White Blood Count 5.9 K/mm3 (4.5-10.0)
[2020-11-27 14:08] LABS: Alanine Aminotransferase 19 U/L (4-35); Albumin Level 3.9 g/dL (3.5-5.1); Alkaline Phosphatase 98 U/L (38-126); Anion Gap 5 mmol/L (8-16); Aspartate Amino Transferase 30 U/L (14-36); Bilirubin,Total 0.5 mg/dL (0.2-1.3); Blood Urea Nitrogen 57 mg/dL (7-17); Calcium 9.3 mg/dL (8.4-10.2); Carbon Dioxide 26 mmol/L (22-30); Chloride 110 mmol/L (98-107); Estimated CRCL calculation 48 ml/min; Estimated Glomerular Filt Rate 35; Glucose 81 mg/dL (65-110); Potassium 5.1 mmol/L (3.4-5.0); Sodium 141 mmol/L (137-145)
--- NOTE | 2020-11-27 14:11 | PC.NURSE ---
Pt on bedside commode attempting to provide urine sample.
--- NOTE | 2020-11-27 14:30 | PC.NURSE ---
Pt unable to provide urine sample.
[2020-11-27] MEDS: SODIUM CHLORIDE 0.9% IV 1,000 ML 999 ML IV CONT (14:31)
--- NOTE | 2020-11-27 14:58 | ED.GENADULT ---
HPI - General Adult General Chief complaint: Urogenital-Female Stated complaint: Difficulty urinating Time Seen by Provider: 11/27/20 10:57 Source: patient and family (Daughter) Mode of arrival: ambulatory Limitations: no limitations History of Present Illness HPI narrative: Patient presents to the emergency department with chief complaint of urinating more frequently and at the same time states that she has been urinating less. Patient originally stated that she had not urinated since yesterday at 2 AM however her daughter states that she urinated prior to arrival. However patient states that she feels that she is voiding incompletely. Patient has not had any fevers, chills, nausea, vomiting, diarrhea, abdominal pain. Related Data Home Medications Medication Instructions Recorded Confirmed atorvastatin 10 mg tablet 10 mg PO DAILY 07/27/19 09/12/20 ferrous sulfate 325 mg (65 mg 325 mg PO DAILY 07/27/19 09/12/20 iron) tablet levothyroxine 25 mcg capsule 25 mcg PO DAILY 07/27/19 09/12/20 lisinopril 40 mg tablet 40 mg PO DAILY 07/27/19 09/12/20 quetiapine 200 mg tablet 200 mg PO BID 07/27/19 09/12/20 benztropine 0.5 mg PO TID 05/12/20 09/12/20 acetaminophen 500 mg tablet 1,000 mg PO BID PRN tablet 07/10/20 09/12/20 lactobacillus combination no.9 4 4,000 mmu cells PO DAILY 07/10/20 09/12/20 billion cell capsule paroxetine HCl 20 mg tablet 20 mg PO DAILY 07/10/20 09/12/20 Allergies Allergy/AdvReac Type Severity Reaction Status Date / Time ciprofloxacin Allergy Mild Hives Verified 11/27/20 09:51 metronidazole Allergy Mild Hives Verified 11/27/20 09:51 divalproex sodium Allergy Unknown Unknown Verified 11/27/20 09:51 vancomycin Allergy Unknown Unknown Verified 11/27/20 09:51 Review of Systems Review of Systems: CONSTITUTIONAL: Denies fever, chills, or sweats. EYES: Denies visual changes, redness, or discharge. ENT: Denies rhinorrhea, congestion, sore throat, or otalgia. CARDIOVASCULAR: Denies chest pain, palpitations, or edema. RESPIRATORY: Denies cough or dyspnea. GASTROINTESTINAL: Denies abdominal pain, nausea, vomiting, or diarrhea. GENITOURINARY: Reports urinary issues denies dysuria or hematuria. SKIN: Denies rash or itching. MUSCULOSKELETAL: Denies back pain, joint pain, or myalgia. NEUROLOGIC: Denies headache, numbness, dizziness, or weakness. PSYCHIATRIC: Denies anxiety or depression. [facility] Past Medical History Medical History Abnormality of gait and mobility Benign essential HTN Benign essential hypertension Brain hypoxia Chronic kidney disease due to diabetes mellitus Diabetic neuropathy RAMAN (generalized anxiety disorder) MALIA on CPAP Type 2 diabetes mellitus with hyperglycemia Family History Family History Father Diabetes mellitus Hypertension Patient's father is , Onset Age: 75 Family history of renal failure Mother Family history of malignant neoplasm of stomach Other Family history of arthritis Social History Social History (Updated 09/12/20 @ 11:14 by Radha Lock) Social History: Smoking status: Never smoker Second hand tobacco smoke exposure: No Alcohol intake: never Substance use: current Substance use type: marijuana Other substance usage details: on occasion; afraid to ask doctor for a prescription, but it helps symptoms Gender identity (if verbalized by the patient): Female Sexual Orientation (if Verbalized by the Patient): Straight or Heterosexual Spiritual care concerns: No Exam Narrative: GENERAL: Well-appearing, well-nourished, and in no acute distress. HEAD: Normocephalic, atraumatic. EYES: PERRLA and EOMI. CHEST: Clear to auscultation. No respiratory distress. No wheezes rales or rhonchi HEART: Regular rate and rhythm. No murmur heard. Normal peripheral pulses. ABDOMEN: Soft, nontender, nondistended, normal active bowel so
--- NOTE | 2020-11-27 15:56 | PC.NURSE ---
Fluids completed. Pt still feels like she does not have to urinate, but up to commode to try.
== END 2020-11-27 17:31 | disposition home or self-care (01) ==
PROVIDERS: Emergency Medicine; Physician Assistant; Emergency Provider Emergency Medicine; PCP Family Medicine
DX: E86.0 Dehydration (principal); R35.0 Frequency of micturition; R33.9 Retention of urine, unspecified; E11.22 Type 2 diabetes mellitus with diabetic chronic kidney disease; I12.9 Hypertensive chronic kidney disease with stage 1 through stage 4 chronic kidney disease, or unspecified chronic kidney disease; N18.9 Chronic kidney disease, unspecified; G47.33 Obstructive sleep apnea (adult) (pediatric); Z79.4 Long term (current) use of insulin
CPT/HCPCS: 36415; 80053; 81001; 85025; 96360; 99283; J7030

== ENCOUNTER → 2021-03-05 04:00 | Outpatient (CLI) | payer MEDICARE, OTHER, SELFPAY ==
[2021-03-10 22:35] LABS: SARS-CoV-2 RNA PCR Positive
== END ==
PROVIDERS: PCP Family Medicine; Visit Provider Family Medicine
DX: U07.1 COVID-19 (principal)
CPT/HCPCS: C9803; U0003; U0005

== ENCOUNTER 2021-03-05 21:10 | Inpatient (IN) | payer MEDICARE, OTHER, SELFPAY ==
[2021-03-05] VITALS (7 sets, daily range): BP systolic 109–147; BP diastolic 60–95; PULSE 78–94; RESP 12–18; TEMP 37.2; O2SAT 90–96
--- NOTE | ~2021-03-05 | CT_ITS ---
EXAMINATION: CTA chest PE protocol DATE: 03/07/2021 14:38 SANDER PORTABLE MACHINE INDICATION: Elevated d-dimer TECHNIQUE: Computed tomographic angiography (CTA) of the chest was performed with 100 mL Omnipaque-35 0 intravenous contrast. The dose-length product was 887.42 mGy-cm. Maximum intensity projection 3D-re constructions of the aorta and other arteries were constructed by the technologist on a separate work station. Automated exposure control and iterative reconstruction technique were employed. COMPARISON: None. FINDINGS: Study limited by contrast bolus timing. No large central pulmonary embolism. There are smal l filling defects in right lower lobe subsegmental pulmonary arteries, suspicious for pulmonary embol ism, small thrombus burden. No evidence for aortic aneurysm or dissection. Heart size normal. No sign ificant pleural or pericardial effusion. No thoracic lymphadenopathy. Patchy groundglass opacities bi laterally, consistent with pneumonia. IMPRESSION: 1. Possible small filling defects right lower lobe subsegmental pulmonary arteries, suspicious for pu lmonary embolism, small thrombus burden. 2: Patchy bilateral airspace disease/groundglass opacification, consistent with pneumonia. Reviewed, dictated and finalized at location A. ER PORTABLE MACHINE IMPRESSION: 1. Possible small filling defects right lower lobe subsegmental pulmonary arter ies, suspicious for pulmonary embolism, small thrombus burden. 2: Patchy bilateral airspace disease/groundglass opacification, consistent with pneumonia.
--- NOTE | ~2021-03-05 | CT_ITS ---
EXAMINATION: CT brain wo con DATE: 03/05/2021 23:14 INDICATION: Confusion and weakness TECHNIQUE: Computed tomography (CT) of the head was performed without intravenous contrast. The dose- length product was 681.00 mGy-cm. Automated exposure control and iterative reconstruction technique w ere employed. COMPARISON: CT dated 05/12/2020 FINDINGS: Brain parenchymal volume is normal for age. There are scattered mild periventricular and coyne bcortical white matter changes, most likely related to small vessel ischemic disease (microangiopathy ). Stable left cerebellopontine angle mass likely meningioma. There is complete opacification right m axillary sinus consistent with chronic sinus disease. There is also sinus disease of the ethmoid and sphenoid sinuses. Mastoids are pneumatized. IMPRESSION: 1. No acute intracranial abnormality. 2: Stable left cerebellopontine angle mass, consistent with meningioma. 3: Chronic sinus disease. 4: Chronic age-related findings. Reviewed, dictated and finalized at location A. L ELECTRIFICATION ENGINEER
--- NOTE | ~2021-03-05 | XR_ITS ---
XR chest 1V portable 03/05/2021 21:57 Indication: Dyspnea. Covid. Procedure: AP portable chest Comparison: Comparison to multiple prior studies sequentially, with oldest reviewed study dated 06/05. Findings: There are subtle bilateral interstitial infiltrates with areas of peribronchial thickening, suspicious for pneumonia. No pleural effusion or pneumothorax. Borderline heart size for technique. Impression: 1: Bilateral interstitial infiltrates in both lungs, suspicious for pneumonia. Mild interstitial danyel a cannot be excluded. Reviewed, dictated and finalized at location A. STARTER Impression: 1: Bilateral interstitial infiltrates in both lungs, suspicious for pneumonia. Mild interstitial edema cannot be excluded.
--- NOTE | 2021-03-05 21:18 | ECG_ITS ---
Measurements Intervals [place] Rate: 94 P: 27 VT: 189 QRS: -13 QRSD: 113 T: 29 QT: 345 QTc: 432 Interpretive Statements SINUS RHYTHM INTRAVENTRICULAR CONDUCTION DELAY LOW QRS VOLTAGE IN PRECORDIAL LEADS BASELINE ARTIFACT- I, II, III, AVR, V4-V5 BORDERLINE ECG Electronically Signed On 03-06-2021 6:05:03 VEHICLE DISMANTLER by Bulmaro Knight D.O.
[2021-03-05 21:43] LABS: Basophils Percent Auto 0.3 % (0.2-1.2); Eosinophils Absolute Auto 0.2 K/mm3 (0-0.3); Eosinophils Percent Auto 3.8 % (0-4.4); Hematocrit 34.7 % (37.0-47.0); Hemoglobin 10.9 g/dL (12.0-15.0); Immature Granulocyte Absolute 0.02 K/mm3 (0.00-0.031); Immature Granulocyte Percent A 0.5 % (0-0.5); Lymphocytes Absolute Auto 0.88 K/mm3 (0.9-3.2); Lymphocytes Percent Auto 22.4 % (18.3-44.2); Mean Corpuscular HGB Conc 31.4 g/dl (32-36); Mean Corpuscular Hemoglobin 29.6 pg (26-34); Mean Corpuscular Volume 94.3 fl (80-100); Mean Platelet Volume 11.1 fl (7.4-10.4); Monocytes Absolute Auto 0.4 K/mm3 (0.1-0.6); Monocytes Percent Auto 10.4 % (2.6-8.5); Neutrophils Absolute Auto 2.5 K/mm3 (1.3-6.7); Neutrophils Percent Auto 62.6 % (45.5-73.1); Platelet Count Result 152 k/mm3 (150-375); Red Blood Count 3.68 M/mm3 (4.2-5.4); Red Cell Distribution Width 16.5 % (11.5-14.5); White Blood Count 3.9 K/mm3 (4.5-10.0)
--- NOTE | 2021-03-05 21:48 | ED.GENADULT ---
HPI - General Adult General Chief complaint: Weakness Stated complaint: decreased Urinary output, increased confusion Time Seen by Provider: 03/05/21 21:32 Limitations: dementia History of Present Illness HPI narrative: Patient is a 65-year-old female who presents the emergency department with chief complaint of generalized weakness. Per the patient's family patient has been weaker than normal and has had decreased urine output. The patient has history of dementia and history is limited due to this. The patient was recently diagnosed with COVID-19 the patient denies shortness of breath denies cough denies nausea denies vomiting denies abdominal pain. Family reports that she was tested yesterday for COVID-19 and tested positive today. Related Data Home Medications Medication Instructions Recorded Confirmed levothyroxine 25 mcg capsule 25 mcg PO DAILY 07/27/19 12/27/20 lisinopril 40 mg tablet 40 mg PO DAILY 07/27/19 12/27/20 quetiapine 200 mg tablet 200 mg PO BID 07/27/19 12/27/20 acetaminophen 500 mg tablet 1,000 mg PO BID PRN tablet 07/10/20 12/27/20 lactobacillus combination no.9 4 4,000 mmu cells PO DAILY 07/10/20 12/27/20 billion cell capsule paroxetine HCl 20 mg tablet 20 mg PO DAILY 07/10/20 12/27/20 Allergies Allergy/AdvReac Type Severity Reaction Status Date / Time ciprofloxacin Allergy Mild Hives Verified 03/05/21 21:25 metronidazole Allergy Mild Hives Verified 03/05/21 21:25 divalproex sodium Allergy Unknown Unknown Verified 03/05/21 21:25 vancomycin Allergy Unknown Unknown Verified 03/05/21 21:25 Review of Systems Review of Systems: A 10 system review of systems was completed on the patient and is negative except for what is stated in the HPI. Nursing and ancillary documentation was reviewed. [facility] Past Medical History Medical History Abnormality of gait and mobility Benign essential HTN Benign essential hypertension Brain hypoxia Chronic kidney disease due to diabetes mellitus Diabetic neuropathy RAMAN (generalized anxiety disorder) MALIA on CPAP Type 2 diabetes mellitus with hyperglycemia Family History Family History Father Diabetes mellitus Hypertension Patient's father is , Onset Age: 75 Family history of renal failure Mother Family history of malignant neoplasm of stomach Other Family history of arthritis Social History Social History Social History: Smoking status: Never smoker Second hand tobacco smoke exposure: No Alcohol intake: never Substance use: current Substance use type: marijuana Other substance usage details: on occasion; afraid to ask doctor for a prescription, but it helps symptoms Gender identity (if verbalized by the patient): Female Sexual Orientation (if Verbalized by the Patient): Straight or Heterosexual Spiritual care concerns: No Exam Narrative: GENERAL: Well-appearing, well-nourished, and in no acute distress. HEAD: Normocephalic, atraumatic. EYES: PERRLA and EOMI. ENT: Nares clear, no rhinorrhea or epistaxis. Mucous membranes moist. NECK: Supple. CHEST: Clear to auscultation. No respiratory distress. HEART: Regular rate and rhythm. No murmur heard. Normal peripheral pulses. ABDOMEN: Soft, nontender, nondistended, normal active bowel sounds. EXTREMITIES: Normal range of motion. No edema. SKIN: Warm, dry, no rash. NEURO: No focal deficits. Alert and oriented x2. PSYCH: Normal mood and affect. Course Course Emergency Course: EKG is sinus rhythm rate of [address] elevation or ST depression Vital Signs Vital signs: Vital Signs Temperature 37.2 C 03/05/21 21:22 Pulse Rate 94 03/05/21 21:22 Respiratory Rate 17 03/05/21 21:22 Blood Pressure 146/90 H 03/05/21 21:22 Pulse Oximetry 96 03/05/21 21:22 Temperature
[2021-03-05 21:52] LABS: Add Urine Microscopic? YES; Amorphous Sediment Urine Few; Appearance Urine Cloudy (Clear); Bacteria Urine 1+ /hpf; Bilirubin Urine Negative (Negative); Blood Urine 1+ (Negative); Budding Yeast Urine Present /hpf; Color Urine Yellow (Yellow); Glucose Urine UA 3+ mg/dL (Negative); Ketones Urine Negative (Negative); Leukocyte Esterase Ur 3+ LEU/UL (Negative); Mucus Urine Rare /lpf; Nitrate Urine Positive (Negative); Protein Urine 1+ mg/dL (Negative); RBC Urine 21-50 /hpf (0-2); Specific Grav Ur 1.015 (1.001-1.035); Squamous Epithelial Cell Urine Rare /hpf (Few); Urobilinogen Urine Negative mg/dL (<2.0); WBC Urine >75 /hpf
[2021-03-05 21:53] LABS: Alanine Aminotransferase 24 U/L (4-35); Albumin Level 3.8 g/dL (3.5-5.1); Alkaline Phosphatase 96 U/L (38-126); Anion Gap 7 mmol/L (8-16); Aspartate Amino Transferase 34 U/L (14-36); Bilirubin,Total 0.3 mg/dL (0.2-1.3); Blood Urea Nitrogen 44 mg/dL (7-17); Calcium 8.6 mg/dL (8.4-10.2); Carbon Dioxide 23 mmol/L (22-30); Chloride 106 mmol/L (98-107); Estimated CRCL calculation 46 ml/min; Estimated Glomerular Filt Rate 32; Glucose 121 mg/dL (65-110); Potassium 4.3 mmol/L (3.4-5.0); Sodium 136 mmol/L (137-145)
[2021-03-05 23:52] LABS: Lactic Acid Reflex 1.7 mmol/L (0.7-2.1)
[2021-03-06] VITALS (10 sets, daily range): BP systolic 106–148; BP diastolic 39–83; PULSE 69–94; RESP 16–18; TEMP 36.2–39.7; O2SAT 94–97; BMI 44.1
--- NOTE | 2021-03-06 02:05 | ADMGEN ---
This patient, Christine Michel, was admitted to [facility] Room 325-01 at 0125. Patient/family oriented to hospital policies and general routines including ID bracelet, bed and alarms, visiting hours, pain management, procedures, bathroom and other care routines, personal items, smoking policy, room service/diet, and visiting hours. Information on how to activate the Rapid Response Team has been discussed. Patient/Family are encouraged to report perceived risks to care and to ask questions if they do not understand what they are told or what they should do.
--- NOTE | 2021-03-06 02:06 | PM.IMHP ---
H&P: HPI History of Present Illness Date/Time: 03/06/21 02:06 Chief Complaint: Generalized weakness COVID positive Narrative: The Patient is a 65-year-old female who presents the emergency department with chief complaint of generalized weakness and confusion. Patient has underlying history of dementia and is a poor historian. She was apparently diagnosed with COVID yesterday. She has a chronic Vigil catheter. She denies any cough or shortness of breath nausea vomiting abdominal pain or diarrhea. She denies any fever or chills. She is noted to be more confused than usual per family. She is noted to have dirty UA but under the setting of chronic Vigil catheter. She is getting admitted for further evaluation and management Review of Systems Review of Systems: - CONSTITUTIONAL: Denies weight loss, fever and chills. - HEENT: Denies changes in vision and hearing - RESPIRATORY: Denies SOB and cough. - CV: Denies palpitations and CP. - GI: Denies abdominal pain, nausea, vomiting and diarrhea. - : Denies dysuria and urinary frequency. - MSK: Denies myalgia and joint pain. - SKIN: Denies rash and pruritus. - NEUROLOGICAL: Denies headache and syncope. - PSYCHIATRIC: Denies recent changes in mood. Denies anxiety and depression. 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 Diabetic neuropathy RAMAN (generalized anxiety disorder) MALIA on CPAP Type 2 diabetes mellitus with hyperglycemia Family History Family History Father Diabetes mellitus Hypertension Patient's father is , Onset Age: 75 Family history of renal failure Mother Family history of malignant neoplasm of stomach Other Family history of arthritis Social History Social History Social History: Smoking status: Never smoker Second hand tobacco smoke exposure: No Alcohol intake: never Substance use: never Substance use type: marijuana Other substance usage details: on occasion; afraid to ask doctor for a prescription, but it helps symptoms Gender identity (if verbalized by the patient): Female Sexual Orientation (if Verbalized by the Patient): Straight or Heterosexual Spiritual care concerns: No Meds Home Medications and Allergies Home Medications Medication Instructions Recorded Confirmed Type levothyroxine 25 mcg capsule 25 mcg PO DAILY 07/27/19 12/27/20 History lisinopril 40 mg tablet 40 mg PO DAILY 07/27/19 12/27/20 History quetiapine 200 mg tablet 200 mg PO BID 07/27/19 12/27/20 History pen needle, diabetic 31 gauge x #400 ea 02/07/20 12/27/20 Rx 5/ dapagliflozin 10 mg tablet 10 mg PO DAILY #90 tablet 05/15/20 12/27/20 Rx acetaminophen 500 mg tablet 1,000 mg PO BID PRN tablet 07/10/20 12/27/20 History lactobacillus combination no.9 4 4,000 mmu cells PO DAILY 07/10/20 12/27/20 History billion cell capsule paroxetine HCl 20 mg tablet 20 mg PO DAILY 07/10/20 12/27/20 History metoprolol tartrate 50 mg tablet 50 mg PO BID #180 tablet 09/13/20 12/27/20 Rx memantine ER 28 mg-donepezil 10 mg 1 cap PO DAILY #30 ea 10/13/20 12/27/20 Rx capsule sprinkle,ext.release 24 hr dulaglutide 1.5 mg/0.5 mL 1.5 mg SUBCUT WEEKLY #2 ml 10/23/20 12/27/20 Rx subcutaneous pen injector clonidine HCl 0.1 mg tablet See Rx Instructions .ROUTE 11/02/20 12/27/20 Rx .COMPLEX #60 tablet cholecalciferol (vitamin D3) 1,250 1,250 mcg PO WEEKLY #14 cap 11/08/20 12/27/20 Rx mcg (50,000
[2021-03-06 07:23] LABS: Basophils Percent Auto 0.3 % (0.2-1.2); Eosinophils Absolute Auto 0.1 K/mm3 (0-0.3); Eosinophils Percent Auto 2.6 % (0-4.4); Hematocrit 35.9 % (37.0-47.0); Hemoglobin 11.2 g/dL (12.0-15.0); Immature Granulocyte Absolute 0.01 K/mm3 (0.00-0.031); Immature Granulocyte Percent A 0.3 % (0-0.5); Lymphocytes Absolute Auto 0.76 K/mm3 (0.9-3.2); Lymphocytes Percent Auto 21.9 % (18.3-44.2); Mean Corpuscular HGB Conc 31.2 g/dl (32-36); Mean Corpuscular Hemoglobin 29.6 pg (26-34); Mean Corpuscular Volume 94.7 fl (80-100); Mean Platelet Volume 10.9 fl (7.4-10.4); Monocytes Absolute Auto 0.4 K/mm3 (0.1-0.6); Monocytes Percent Auto 12.1 % (2.6-8.5); Neutrophils Absolute Auto 2.2 K/mm3 (1.3-6.7); Neutrophils Percent Auto 62.8 % (45.5-73.1); Platelet Count Result 125 k/mm3 (150-375); Red Blood Count 3.79 M/mm3 (4.2-5.4); Red Cell Distribution Width 16.5 % (11.5-14.5); White Blood Count 3.5 K/mm3 (4.5-10.0)
[2021-03-06 07:38] LABS: Alanine Aminotransferase 23 U/L (4-35); Albumin Level 3.6 g/dL (3.5-5.1); Alkaline Phosphatase 87 U/L (38-126); Anion Gap 9 mmol/L (8-16); Aspartate Amino Transferase 41 U/L (14-36); Bilirubin,Total 0.6 mg/dL (0.2-1.3); Blood Urea Nitrogen 41 mg/dL (7-17); CRP 8.1 mg/dL (<1.0); Calcium 8.5 mg/dL (8.4-10.2); Carbon Dioxide 21 mmol/L (22-30); Chloride 110 mmol/L (98-107); Estimated CRCL calculation 49 ml/min; Estimated Glomerular Filt Rate 35; Glucose 104 mg/dL (65-110); Lactate Dehydrogenase 890 U/L (313-618); Magnesium 2.3 mg/dL (1.6-2.3); Potassium 4.8 mmol/L (3.4-5.0); Sodium 140 mmol/L (137-145)
[2021-03-06 07:57] LABS: Ammonia < 9 umol/L (9-30)
[2021-03-06] MEDS: ACETAMINOPHEN 500 MG TABLET 1000 MG PO (09:37)
[2021-03-06] MEDS: lisinopriL 20 MG TABLET 40 MG PO (09:39)
[2021-03-06] MEDS: QUEtiapine FUMARATE 100 MG TABLET 200 MG PO ×2 (09:39→20:20)
[2021-03-06] MEDS: METOPROLOL TARTRATE 50 MG TAB PO ×2 (09:40→20:18)
[2021-03-06] MEDS: FERROUS SULFATE 324 MG TABLET PO (09:40)
[2021-03-06] MEDS: PARoxetine 20 MG TABLET PO (09:40)
[2021-03-06] MEDS: ATORVASTATIN 10 MG TABLET PO (09:40)
[2021-03-06] MEDS: BENZTROPINE MESYLATE 0.5 MG TABLET PO ×3 (09:40→18:22)
[2021-03-06] MEDS: MULTIVITAMINS /C LUTEIN (CENTRUM SILVER) TABLET *BKC 1 TAB PO (09:40)
[2021-03-06] MEDS: ACIDOPHILUS/BULGARICUS CHEWABLE TABLET 1 TABLET BY MOUTH (12:30)
[2021-03-06] MEDS: cloNIDine HCL 0.1 MG TABLET PO ×2 (12:30→20:20)
[2021-03-06] MEDS: ENOXAPARIN 40 MG/0.4 ML SYRINGE SUB-Q (12:30)
--- NOTE | 2021-03-06 13:00 | PM.IMPN ---
Progress Note: A&P Assessment and Plan (1) Acute metabolic encephalopathy: Code(s): G93.41 - Metabolic encephalopathy Status: Acute Assessment and Plan: Head CT negative Could be UTI, advancing dementia, or PNA UA suspicious for UTI Urine culture pending Ammonia <9 chest x-ray with bilateral interstitial infiltrates in both lungs Mildly low WBC count underlying dementia (2) COVID-19: Code(s): U07.1 - COVID-19 Status: Acute Assessment and Plan: bilateral pneumonia interstitial on chest xray H&P indicates patient was diagnosed yesterday Not hypoxic Continue to monitor No indication of remdesivir or Decadron for now inflammatory markers: LDH 890, CRP 8.1, ferritin 487 (3) Neurogenic bladder: Code(s): N31.9 - Neuromuscular dysfunction of bladder, unspecified Status: Acute Assessment and Plan: chronic Vigil catheter due to urinary retention/neurogenic bladder Follows with urology Looks like she seen Ashlyn in the office on 02/10/21 Probably does not need consult at this time talked to Ashlyn from Urology who states the Vigil should just be changed out at this time (4) Wound of skin: Code(s): T14.8XXA - Other injury of unspecified body region, initial encounter Status: Acute Assessment and Plan: wound care stated this is incontinence dermatitis orders are in wound care consult nystatin for anti fungal Await further recommendations from the wound care team (5) Alzheimer's dementia without behavioral disturbance: Qualifiers: Alzheimer's disease onset: early-onset Qualified Code(s): G30.0 - Alzheimer's disease with early onset; F02.80 - Dementia in other diseases classified elsewhere without behavioral disturbance Code(s): G30.9 - Alzheimer's disease, unspecified; F02.80 - Dementia in other diseases classified elsewhere without behavioral disturbance Status: Acute Assessment and Plan: Alzheimer's dementia without behavioral disturbance Continue paroxetine and namenda from home Trend mood (6) Diabetic neuropathy: Qualifiers: Diabetes mellitus complication detail: diabetic polyneuropathy Diabetes mellitus type: type 2 Qualified Code(s): E11.42 - Type 2 diabetes mellitus with diabetic polyneuropathy Code(s): E11.40 - Type 2 diabetes mellitus with diabetic neuropathy, unspecified Status: Acute Assessment and Plan: Looks like she is on lyrica at home Hold for now while she is altered Will continue when appropriate (7) Hyperlipidemia: Code(s): E78.5 - Hyperlipidemia, unspecified Status: Acute Assessment and Plan: Continue atorvastatin AST slightly elevated Continue to trend LFTs Ok for now (8) MALIA on CPAP: Code(s): G47.33 - Obstructive sleep apnea (adult) (pediatric); Z99.89 - Dependence on other enabling machines and devices Status: Acute Assessment and Plan: Patient uses ASV at home Settings are Epap of 9, MinPS 3, MaxPS 8 Look complaint as of 05/11/20 Sees Anupam Trinidad for pulmonology Continue home setting (9) Type 2 diabetes mellitus with hyperglycemia: Qualifiers: Diabetes mellitus usp insulin 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
--- NOTE | 2021-03-06 13:00 | P.PNIM_ITS ---
Progress Note: A&P Assessment and Plan (1) Acute metabolic encephalopathy: Code(s): G93.41 - Metabolic encephalopathy Status: Acute Assessment and Plan: * Head CT negative * Could be UTI, advancing dementia, or PNA * UA suspicious for UTI * Urine culture pending * Ammonia <9 * chest x-ray with bilateral interstitial infiltrates in both lungs * Mildly low WBC count * underlying dementia (2) COVID-19: Code(s): U07.1 - COVID-19 Status: Acute Assessment and Plan: * bilateral pneumonia interstitial on chest xray * H&P indicates patient was diagnosed yesterday * Not hypoxic * Continue to monitor * No indication of remdesivir or Decadron for now * inflammatory markers: LDH 890, CRP 8.1, ferritin 487 (3) Neurogenic bladder: Code(s): N31.9 - Neuromuscular dysfunction of bladder, unspecified Status: Acute Assessment and Plan: * chronic Vigil catheter due to urinary retention/neurogenic bladder * Follows with urology * Looks like she seen Ashlyn in the office on 02/10/21 * Probably does not need consult at this time * talked to Ashlyn from Urology who states the Vigil should just be changed out at this time (4) Wound of skin: Code(s): T14.8XXA - Other injury of unspecified body region, initial encounter Status: Acute Assessment and Plan: * wound care stated this is incontinence dermatitis orders are in * wound care consult * nystatin for anti fungal * Await further recommendations from the wound care team (5) Alzheimer's dementia without behavioral disturbance: Qualifiers: Alzheimer's disease onset: early-onset Qualified Code(s): G30.0 - Alzheimer's disease with early onset; F02.80 - Dementia in other diseases classified elsewhere without behavioral disturbance Code(s): G30.9 - Alzheimer's disease, unspecified; F02.80 - Dementia in other diseases classified elsewhere without behavioral disturbance Status: Acute Assessment and Plan: * Alzheimer's dementia without behavioral disturbance * Continue paroxetine and namenda from home * Trend mood (6) Diabetic neuropathy: Qualifiers: Diabetes mellitus complication detail: diabetic polyneuropathy Diabetes mellitus type: type 2 Qualified Code(s): E11.42 - Type 2 diabetes mellitus with diabetic polyneuropathy Code(s): E11.40 - Type 2 diabetes mellitus with diabetic neuropathy, unspecified Status: Acute Assessment and Plan: * Looks like she is on lyrica at home * Hold for now while she is altered * Will continue when appropriate (7) Hyperlipidemia: Code(s): E78.5 - Hyperlipidemia, unspecified Status: Acute Assessment and Plan: * Continue atorvastatin * AST slightly elevated * Continue to trend LFTs * Ok for now (8) MALIA on CPAP: Code(s): G47.33 - Obstructive sleep apnea (adult) (pediatric); Z99.89 - Dependence on other enabling machines and devices Status: Acute Assessment and Plan: * Patient uses ASV at home * Settings are Epap of 9, MinPS 3, MaxPS 8 * Look complaint as of 05/11/20 * Sees Anupam Trinidad for pulmonology * Continue home setting (9) Type 2 diabetes mellitus with hyperglycemia: Qualifiers: Diabetes mellitus senior living insulin use: with terminal 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
[2021-03-06] MEDS: MEMANTINE HCL XR 28 MG CAP PO (20:18)
[2021-03-06] MEDS: DONEPEZIL HCL 10 MG TABLET PO (20:19)
[2021-03-07] VITALS (9 sets, daily range): BP systolic 115–151; BP diastolic 56–92; PULSE 73–102; RESP 16–20; TEMP 37–39.5; O2SAT 87–98
[2021-03-07] MEDS: LEVOTHYROXINE SODIUM 25 MCG TABLET PO (06:36)
[2021-03-07 06:59] LABS: Basophils Percent Auto 0.2 % (0.2-1.2); Eosinophils Absolute Auto 0.1 K/mm3 (0-0.3); Eosinophils Percent Auto 1.1 % (0-4.4); Immature Granulocyte Absolute 0.03 K/mm3 (0.00-0.031); Immature Granulocyte Percent A 0.7 % (0-0.5); Lymphocytes Absolute Auto 1.63 K/mm3 (0.9-3.2); Lymphocytes Percent Auto 37.4 % (18.3-44.2); Mean Corpuscular HGB Conc 30.6 g/dl (32-36); Mean Corpuscular Hemoglobin 29.2 pg (26-34); Mean Corpuscular Volume 95.5 fl (80-100); Mean Platelet Volume 11.1 fl (7.4-10.4); Monocytes Absolute Auto 0.7 K/mm3 (0.1-0.6); Monocytes Percent Auto 15.1 % (2.6-8.5); Neutrophils Percent Auto 45.5 % (45.5-73.1); Platelet Count Result 122 k/mm3 (150-375); Red Blood Count 3.77 M/mm3 (4.2-5.4); Red Cell Distribution Width 17.1 % (11.5-14.5); White Blood Count 4.4 K/mm3 (4.5-10.0)
--- NOTE | 2021-03-07 08:15 | PM.IMPN ---
Progress Note: A&P Assessment and Plan (1) Acute metabolic encephalopathy: Code(s): G93.41 - Metabolic encephalopathy Status: Acute Assessment and Plan: Seems to be resolving at this time Head CT negative Could be UTI, advancing dementia, or PNA UA suspicious for UTI Urine culture pending Ammonia <9 chest x-ray with bilateral interstitial infiltrates in both lungs Mildly low WBC count underlying dementia (2) COVID-19: Code(s): U07.1 - COVID-19 Status: Acute Assessment and Plan: bilateral pneumonia interstitial on chest xray H&P indicates patient was diagnosed yesterday Not hypoxic Continue to monitor No indication of remdesivir or Decadron for now inflammatory markers: LDH 890, CRP 8.1, ferritin 487 (3) Neurogenic bladder: Code(s): N31.9 - Neuromuscular dysfunction of bladder, unspecified Status: Acute Assessment and Plan: chronic Vigil catheter due to urinary retention/neurogenic bladder Follows with urology Looks like she seen Ashlyn in the office on 02/10/21 Probably does not need consult at this time talked to Ashlyn from Urology who states the Vigil should just be changed out at this time (4) Wound of skin: Code(s): T14.8XXA - Other injury of unspecified body region, initial encounter Status: Acute Assessment and Plan: wound care stated this is incontinence dermatitis orders are in wound care consult nystatin for anti fungal Await further recommendations from the wound care team (5) Alzheimer's dementia without behavioral disturbance: Qualifiers: Alzheimer's disease onset: early-onset Qualified Code(s): G30.0 - Alzheimer's disease with early onset; F02.80 - Dementia in other diseases classified elsewhere without behavioral disturbance Code(s): G30.9 - Alzheimer's disease, unspecified; F02.80 - Dementia in other diseases classified elsewhere without behavioral disturbance Status: Acute Assessment and Plan: Alzheimer's dementia without behavioral disturbance Continue paroxetine and namenda from home Trend mood (6) Diabetic neuropathy: Qualifiers: Diabetes mellitus complication detail: diabetic polyneuropathy Diabetes mellitus type: type 2 Qualified Code(s): E11.42 - Type 2 diabetes mellitus with diabetic polyneuropathy Code(s): E11.40 - Type 2 diabetes mellitus with diabetic neuropathy, unspecified Status: Acute Assessment and Plan: Looks like she is on lyrica at home Hold for now while she is altered Will continue when appropriate (7) Hyperlipidemia: Code(s): E78.5 - Hyperlipidemia, unspecified Status: Acute Assessment and Plan: Continue atorvastatin AST slightly elevated Continue to trend LFTs Ok for now (8) MALIA on CPAP: Code(s): G47.33 - Obstructive sleep apnea (adult) (pediatric); Z99.89 - Dependence on other enabling machines and devices Status: Acute Assessment and Plan: Patient uses ASV at home Settings are Epap of 9, MinPS 3, MaxPS 8 Look complaint as of 05/11/20 Sees Anupam Trinidad for pulmonology Continue home setting (9) Type 2 diabetes mellitus with hyperglycemia: Qualifiers: Diabetes mellitus [facility] insulin use: with 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
--- NOTE | 2021-03-07 08:15 | P.PNIM_ITS ---
Progress Note: A&P Assessment and Plan (1) Acute metabolic encephalopathy: Code(s): G93.41 - Metabolic encephalopathy Status: Acute Assessment and Plan: * Seems to be resolving at this time * Head CT negative * Could be UTI, advancing dementia, or PNA * UA suspicious for UTI * Urine culture pending * Ammonia <9 * chest x-ray with bilateral interstitial infiltrates in both lungs * Mildly low WBC count * underlying dementia (2) COVID-19: Code(s): U07.1 - COVID-19 Status: Acute Assessment and Plan: * bilateral pneumonia interstitial on chest xray * H&P indicates patient was diagnosed yesterday * Not hypoxic * Continue to monitor * No indication of remdesivir or Decadron for now * inflammatory markers: LDH 890, CRP 8.1, ferritin 487 (3) Neurogenic bladder: Code(s): N31.9 - Neuromuscular dysfunction of bladder, unspecified Status: Acute Assessment and Plan: * chronic Vigil catheter due to urinary retention/neurogenic bladder * Follows with urology * Looks like she seen Ashlyn in the office on 02/10/21 * Probably does not need consult at this time * talked to Ashlyn from Urology who states the Vigil should just be changed out at this time (4) Wound of skin: Code(s): T14.8XXA - Other injury of unspecified body region, initial encounter Status: Acute Assessment and Plan: * wound care stated this is incontinence dermatitis orders are in * wound care consult * nystatin for anti fungal * Await further recommendations from the wound care team (5) Alzheimer's dementia without behavioral disturbance: Qualifiers: Alzheimer's disease onset: early-onset Qualified Code(s): G30.0 - Alzheimer's disease with early onset; F02.80 - Dementia in other diseases classified elsewhere without behavioral disturbance Code(s): G30.9 - Alzheimer's disease, unspecified; F02.80 - Dementia in other diseases classified elsewhere without behavioral disturbance Status: Acute Assessment and Plan: * Alzheimer's dementia without behavioral disturbance * Continue paroxetine and namenda from home * Trend mood (6) Diabetic neuropathy: Qualifiers: Diabetes mellitus complication detail: diabetic polyneuropathy Diabetes mellitus type: type 2 Qualified Code(s): E11.42 - Type 2 diabetes mellitus with diabetic polyneuropathy Code(s): E11.40 - Type 2 diabetes mellitus with diabetic neuropathy, unspecified Status: Acute Assessment and Plan: * Looks like she is on lyrica at home * Hold for now while she is altered * Will continue when appropriate (7) Hyperlipidemia: Code(s): E78.5 - Hyperlipidemia, unspecified Status: Acute Assessment and Plan: * Continue atorvastatin * AST slightly elevated * Continue to trend LFTs * Ok for now (8) MALIA on CPAP: Code(s): G47.33 - Obstructive sleep apnea (adult) (pediatric); Z99.89 - Dependence on other enabling machines and devices Status: Acute Assessment and Plan: * Patient uses ASV at home * Settings are Epap of 9, MinPS 3, MaxPS 8 * Look complaint as of 05/11/20 * Sees Anupam Trinidad for pulmonology * Continue home setting (9) Type 2 diabetes mellitus with hyperglycemia: Qualifiers: Diabetes mellitus prison insulin use: with prison use Qualifi
[2021-03-07] MEDS: ENOXAPARIN 40 MG/0.4 ML SYRINGE SUB-Q (08:42)
[2021-03-07] MEDS: ATORVASTATIN 10 MG TABLET PO (08:42)
[2021-03-07] MEDS: BENZTROPINE MESYLATE 0.5 MG TABLET PO ×3 (08:42→17:22)
[2021-03-07] MEDS: QUEtiapine FUMARATE 100 MG TABLET 200 MG PO ×2 (08:42→20:40)
[2021-03-07] MEDS: lisinopriL 20 MG TABLET 40 MG PO (08:42)
[2021-03-07] MEDS: MULTIVITAMINS /C LUTEIN (CENTRUM SILVER) TABLET *BKC 1 TAB PO (08:43)
[2021-03-07] MEDS: cloNIDine HCL 0.1 MG TABLET PO ×2 (08:44→20:48)
[2021-03-07] MEDS: METOPROLOL TARTRATE 50 MG TAB PO ×2 (08:44→20:40)
[2021-03-07] MEDS: ACIDOPHILUS/BULGARICUS CHEWABLE TABLET 1 TABLET BY MOUTH (08:44)
[2021-03-07] MEDS: FERROUS SULFATE 324 MG TABLET PO (08:45)
[2021-03-07] MEDS: PARoxetine 20 MG TABLET PO (08:45)
[2021-03-07 09:05] LABS: D Dimer 0.58 ug/mL (<0.48)
[2021-03-07 09:13] LABS: Alanine Aminotransferase 23 U/L (4-35); Albumin Level 3.3 g/dL (3.5-5.1); Alkaline Phosphatase 95 U/L (38-126); Anion Gap 10 mmol/L (8-16); Aspartate Amino Transferase 37 U/L (14-36); Bilirubin,Total 0.5 mg/dL (0.2-1.3); Blood Urea Nitrogen 37 mg/dL (7-17); Calcium 8.4 mg/dL (8.4-10.2); Carbon Dioxide 21 mmol/L (22-30); Chloride 110 mmol/L (98-107); Estimated CRCL calculation 49 ml/min; Estimated Glomerular Filt Rate 35; Glucose 138 mg/dL (65-110); Magnesium 2.2 mg/dL (1.6-2.3); Potassium 5.3 mmol/L (3.4-5.0); Sodium 141 mmol/L (137-145)
[2021-03-07] MEDS: ACETAMINOPHEN 500 MG TABLET 1000 MG PO (17:20)
[2021-03-07] MEDS: ENOXAPARIN 80 MG/0.8 ML SYRINGE 135 MG SUB-Q (18:25)
[2021-03-07] MEDS: DONEPEZIL HCL 10 MG TABLET PO (20:40)
[2021-03-07] MEDS: MEMANTINE HCL XR 28 MG CAP PO (20:40)
[2021-03-08] VITALS (7 sets, daily range): BP systolic 107–155; BP diastolic 49–80; PULSE 75–91; RESP 16–20; TEMP 36.3–37.8; O2SAT 90–94
[2021-03-08] MEDS: ENOXAPARIN 80 MG/0.8 ML SYRINGE 135 MG SUB-Q ×2 (05:33→17:45)
[2021-03-08] MEDS: LEVOTHYROXINE SODIUM 25 MCG TABLET PO (05:34)
[2021-03-08 07:48] LABS: Basophils Percent Auto 0.3 % (0.2-1.2); Eosinophils Absolute Auto 0.1 K/mm3 (0-0.3); Eosinophils Percent Auto 1.8 % (0-4.4); Hematocrit 36.2 % (37.0-47.0); Hemoglobin 11.2 g/dL (12.0-15.0); Immature Granulocyte Absolute 0.03 K/mm3 (0.00-0.031); Immature Granulocyte Percent A 0.8 % (0-0.5); Lymphocytes Absolute Auto 1.09 K/mm3 (0.9-3.2); Lymphocytes Percent Auto 27.4 % (18.3-44.2); Mean Corpuscular HGB Conc 30.9 g/dl (32-36); Mean Corpuscular Hemoglobin 28.9 pg (26-34); Mean Corpuscular Volume 93.3 fl (80-100); Mean Platelet Volume 10.9 fl (7.4-10.4); Monocytes Absolute Auto 0.4 K/mm3 (0.1-0.6); Neutrophils Absolute Auto 2.4 K/mm3 (1.3-6.7); Neutrophils Percent Auto 60.7 % (45.5-73.1); Platelet Count Result 127 k/mm3 (150-375); Red Blood Count 3.88 M/mm3 (4.2-5.4)
[2021-03-08 08:07] LABS: D Dimer 0.49 ug/mL (<0.48)
[2021-03-08 08:27] LABS: Alanine Aminotransferase 21 U/L (4-35); Albumin Level 3.3 g/dL (3.5-5.1); Alkaline Phosphatase 92 U/L (38-126); Anion Gap 7 mmol/L (8-16); Aspartate Amino Transferase 33 U/L (14-36); Bilirubin,Total 0.4 mg/dL (0.2-1.3); Blood Urea Nitrogen 36 mg/dL (7-17); CRP 17.3 mg/dL (<1.0); Calcium 8.7 mg/dL (8.4-10.2); Carbon Dioxide 23 mmol/L (22-30); Chloride 107 mmol/L (98-107); Estimated CRCL calculation 49 ml/min; Estimated Glomerular Filt Rate 35; Glucose 151 mg/dL (65-110); Lactate Dehydrogenase 723 U/L (313-618); Magnesium 2.1 mg/dL (1.6-2.3); Potassium 4.7 mmol/L (3.4-5.0); Sodium 137 mmol/L (137-145)
--- NOTE | 2021-03-08 09:15 | PM.IMPN ---
Progress Note: A&P Assessment and Plan (1) COVID-19: Code(s): U07.1 - COVID-19 Status: Acute Assessment and Plan: bilateral pneumonia interstitial on chest xray H&P indicates patient was diagnosed yesterday Not hypoxic Continue to monitor No indication of remdesivir or Decadron for now inflammatory markers: LDH 723, CRP 17.3, ferritin 487 (2) Neurogenic bladder: Code(s): N31.9 - Neuromuscular dysfunction of bladder, unspecified Status: Acute Assessment and Plan: chronic Vigil catheter due to urinary retention/neurogenic bladder Follows with urology Looks like she seen Ashlyn in the office on 02/10/21 Probably does not need consult at this time talked to Ashlyn from Urology who states the Vigil should just be changed out at this time (3) Wound of skin: Code(s): T14.8XXA - Other injury of unspecified body region, initial encounter Status: Acute Assessment and Plan: wound care stated this is incontinence dermatitis orders are in wound care consult nystatin for anti fungal Await further recommendations from the wound care team (4) Alzheimer's dementia without behavioral disturbance: Qualifiers: Alzheimer's disease onset: early-onset Qualified Code(s): G30.0 - Alzheimer's disease with early onset; F02.80 - Dementia in other diseases classified elsewhere without behavioral disturbance Code(s): G30.9 - Alzheimer's disease, unspecified; F02.80 - Dementia in other diseases classified elsewhere without behavioral disturbance Status: Acute Assessment and Plan: Alzheimer's dementia without behavioral disturbance Continue paroxetine and namenda from home Trend mood (5) Diabetic neuropathy: Qualifiers: Diabetes mellitus type: type 2 Diabetes mellitus complication detail: diabetic polyneuropathy Qualified Code(s): E11.42 - Type 2 diabetes mellitus with diabetic polyneuropathy Code(s): E11.40 - Type 2 diabetes mellitus with diabetic neuropathy, unspecified Status: Acute Assessment and Plan: Looks like she is on lyrica at home Hold for now while she is altered Will continue when appropriate (6) Hyperlipidemia: Code(s): E78.5 - Hyperlipidemia, unspecified Status: Acute Assessment and Plan: Continue atorvastatin AST slightly elevated Continue to trend LFTs Ok for now (7) MALIA on CPAP: Code(s): G47.33 - Obstructive sleep apnea (adult) (pediatric); Z99.89 - Dependence on other enabling machines and devices Status: Acute Assessment and Plan: Patient uses ASV at home Settings are Epap of 9, MinPS 3, MaxPS 8 Look complaint as of 05/11/20 Sees Anupam Trinidad for pulmonology Continue home setting (8) Type 2 diabetes mellitus with hyperglycemia: Qualifiers: Diabetes mellitus fpc insulin use: 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 Qualified Code(s): E11.65 - Type 2 diabetes mellitus with hyperglycemia; Z79.4 - [facility] (current) use of insulin Code(s): E11.65 - Type 2 diabetes mellitus with hyperglycemia Status: Acute Assessment and Plan: Current glucose is 151 Hold Home regimen for now Start sliding scale Accu Checks Diabetic diet Adjust therapy as indicated Trend glucose (9) Chronic kidney disease due to diabetes mellitus: Code(s): E11.22 - Type 2 diabetes mellitus with diabetic chronic kidney disease Status: Acute Assessment and Plan: chronic kidney disease stage 3 baseline Baseline BUN/Cr 30-50/1.2-1.6 Current 36/1.50 Continue to trend Avoid nephrotoxic medications (10) Chronic obstructive pulmonary disease: Qualifiers: COPD type: unspecified COPD Qualified Code(s): J44.9 - Chronic obstructive pulmonary disease, unspecified Code(s): J44.9 - Chronic obstructive pulmonary disease, uns
--- NOTE | 2021-03-08 09:15 | P.PNIM_ITS ---
Progress Note: A&P Assessment and Plan (1) COVID-19: Code(s): U07.1 - COVID-19 Status: Acute Assessment and Plan: * bilateral pneumonia interstitial on chest xray * H&P indicates patient was diagnosed yesterday * Not hypoxic * Continue to monitor * No indication of remdesivir or Decadron for now * inflammatory markers: LDH 723, CRP 17.3, ferritin 487 (2) Neurogenic bladder: Code(s): N31.9 - Neuromuscular dysfunction of bladder, unspecified Status: Acute Assessment and Plan: * chronic Vigil catheter due to urinary retention/neurogenic bladder * Follows with urology * Looks like she seen Ashlyn in the office on 02/10/21 * Probably does not need consult at this time * talked to Ashlyn from Urology who states the Vigil should just be changed out at this time (3) Wound of skin: Code(s): T14.8XXA - Other injury of unspecified body region, initial encounter Status: Acute Assessment and Plan: * wound care stated this is incontinence dermatitis orders are in * wound care consult * nystatin for anti fungal * Await further recommendations from the wound care team (4) Alzheimer's dementia without behavioral disturbance: Qualifiers: Alzheimer's disease onset: early-onset Qualified Code(s): G30.0 - Alzheimer's disease with early onset; F02.80 - Dementia in other diseases classified elsewhere without behavioral disturbance Code(s): G30.9 - Alzheimer's disease, unspecified; F02.80 - Dementia in other diseases classified elsewhere without behavioral disturbance Status: Acute Assessment and Plan: * Alzheimer's dementia without behavioral disturbance * Continue paroxetine and namenda from home * Trend mood (5) Diabetic neuropathy: Qualifiers: Diabetes mellitus type: type 2 Diabetes mellitus complication detail: diabetic polyneuropathy Qualified Code(s): E11.42 - Type 2 diabetes mellitus with diabetic polyneuropathy Code(s): E11.40 - Type 2 diabetes mellitus with diabetic neuropathy, unspecified Status: Acute Assessment and Plan: * Looks like she is on lyrica at home * Hold for now while she is altered * Will continue when appropriate (6) Hyperlipidemia: Code(s): E78.5 - Hyperlipidemia, unspecified Status: Acute Assessment and Plan: * Continue atorvastatin * AST slightly elevated * Continue to trend LFTs * Ok for now (7) MALIA on CPAP: Code(s): G47.33 - Obstructive sleep apnea (adult) (pediatric); Z99.89 - Dependence on other enabling machines and devices Status: Acute Assessment and Plan: * Patient uses ASV at home * Settings are Epap of 9, MinPS 3, MaxPS 8 * Look complaint as of 05/11/20 * Sees Anupam Trinidad for pulmonology * Continue home setting (8) Type 2 diabetes mellitus with hyperglycemia: Qualifiers: 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
[2021-03-08] MEDS: ONDANSETRON INJ 4 MG/2 ML VIAL IV PUSH (10:51)
[2021-03-08] MEDS: ERGOCALCIFEROL 50,000 UNIT CAPSULE 50000 UNITS PO (10:52)
[2021-03-08] MEDS: PARoxetine 20 MG TABLET PO (10:52)
[2021-03-08] MEDS: lisinopriL 20 MG TABLET 40 MG PO (10:52)
[2021-03-08] MEDS: FERROUS SULFATE 324 MG TABLET PO (10:52)
[2021-03-08] MEDS: ATORVASTATIN 10 MG TABLET PO (10:52)
[2021-03-08] MEDS: METOPROLOL TARTRATE 50 MG TAB PO ×2 (10:52→20:31)
[2021-03-08] MEDS: ACIDOPHILUS/BULGARICUS CHEWABLE TABLET 1 TABLET BY MOUTH (10:52)
--- NOTE | 2021-03-08 10:52 | PCOTNOTE ---
Patient unable to tolerate treatment due to nausea. Nursing reports antinausea medicine given.
[2021-03-08] MEDS: MULTIVITAMINS /C LUTEIN (CENTRUM SILVER) TABLET *BKC 1 TAB PO (10:53)
[2021-03-08] MEDS: cloNIDine HCL 0.1 MG TABLET PO ×2 (10:53→20:32)
[2021-03-08] MEDS: BENZTROPINE MESYLATE 0.5 MG TABLET PO ×3 (10:53→17:45)
[2021-03-08] MEDS: QUEtiapine FUMARATE 100 MG TABLET 200 MG PO ×2 (10:53→20:32)
[2021-03-08] MEDS: ACETAMINOPHEN 500 MG TABLET 1000 MG PO (12:17)
[2021-03-08] MEDS: BISACODYL 10 MG SUPPOSITORY RECTAL (14:44)
[2021-03-08] MEDS: DONEPEZIL HCL 10 MG TABLET PO (20:32)
[2021-03-08] MEDS: MEMANTINE HCL XR 28 MG CAP PO (20:32)
[2021-03-09] VITALS (8 sets, daily range): BP systolic 141–173; BP diastolic 66–88; PULSE 64–110; RESP 16–20; TEMP 36.3–36.9; O2SAT 90–96
--- NOTE | 2021-03-09 | ECHO_ITS ---
Patient Info Name: Christine Michel Age: 65 years : 1955 Gender: Female Ht: 69 in Wt: 298 lbs BSA: 2.63 m2 HR: 84 bpm BP: 161 / 88 mmHg Heart Rhythm: Sinus Rhythm Technical Quality: Fair Exam Date: 03/09/2021 2:10 PM Exam Location: [facility] Pulmonary Exam Room: 325 Patient Status: Inpatient Admit Date: 03/06/2021 Staff Ordering Physician: Jamal Beatty Income Tax Auditor: Virginia Lozano RDCS Attending Provider: Andrea Strong MD Referring Physician: Rogerio HURTADO; Exam Type: CA echo doppler color flow Study Info Indications - FLUID STATUS Complete two-dimensional, color flow and Doppler transthoracic echocardiogram is performed. Summary 1. Complete two-dimensional, color flow and Doppler transthoracic echocardiogram is performed. 2. Normal left ventricular size with borderline concentric hypertrophy. Good systolic function of all segments with an ejection fraction 65-70%. Grade 1 diastolic dysfunction is present. 3. No significant valve disease. 4. Trivial pericardial effusion. 5. Normal sinus rhythm. Left Ventricle Left ventricular chamber dimension is normal. Left ventricular systolic function is normal, estimated at 65-70%. There is mildly increased left ventricular wall thickness. Left ventricular septal wall motion is normal. The left ventricular diastolic function is normal. Right Ventricle Right ventricular chamber dimension is normal. Right ventricular systolic function is normal. Left Atria Left atrial chamber dimension is normal. Right Atria Right atrial chamber dimension is normal. Aortic Valve The aortic valve is trileaflet. There is no aortic valve sclerosis. There is no aortic valve stenosis. There is no aortic valve regurgitation. Pulmonic Valve The pulmonic valve is normal. There is no pulmonic valve stenosis. There is no pulmonic regurgitation. Mitral Valve The mitral valve has normal leaflets. There is no mitral valve stenosis. There is no mitral valve regurgitation. Tricuspid Valve The tricuspid valve leaflets are normal. There is no significant tricuspid valve stenosis. There is no tricuspid valve regurgitation. No pulmonary hypertension, estimated pulmonary arterial systolic pressure is Empty. Pericardium/Pleural The pericardium appears normal. There is trivial pericardial effusion. Inferior Vena Cava Normal inferior vena cava with >50% collapse upon inspiration consistent with Empty right atrial pressure, Empty. Aorta The aortic root size at the sinus of Valsalva is normal. The prox ascending aorta size is normal. Left Ventricular Outflow Tract Name Value Normal LVOT 2D LVOT Diameter 2.0 cm Pulmonic Valve Name Value Normal PV Doppler PV Peak Gradient 3 mmHg Mitral Valve Name Value Normal
[2021-03-09] MEDS: ENOXAPARIN 80 MG/0.8 ML SYRINGE 135 MG SUB-Q ×2 (05:25→18:04)
[2021-03-09] MEDS: LEVOTHYROXINE SODIUM 25 MCG TABLET PO (05:25)
[2021-03-09 06:14] LABS: Basophils Percent Auto 0.3 % (0.2-1.2); Eosinophils Absolute Auto 0.1 K/mm3 (0-0.3); Hematocrit 34.5 % (37.0-47.0); Hemoglobin 10.7 g/dL (12.0-15.0); Immature Granulocyte Absolute 0.04 K/mm3 (0.00-0.031); Lymphocytes Absolute Auto 0.91 K/mm3 (0.9-3.2); Lymphocytes Percent Auto 22.9 % (18.3-44.2); Mean Corpuscular Hemoglobin 28.8 pg (26-34); Monocytes Absolute Auto 0.5 K/mm3 (0.1-0.6); Monocytes Percent Auto 11.3 % (2.6-8.5); Neutrophils Absolute Auto 2.5 K/mm3 (1.3-6.7); Neutrophils Percent Auto 62.5 % (45.5-73.1); Platelet Count Result 132 k/mm3 (150-375); Red Blood Count 3.71 M/mm3 (4.2-5.4); Red Cell Distribution Width 16.5 % (11.5-14.5)
[2021-03-09 06:52] LABS: Alanine Aminotransferase 23 U/L (4-35); Albumin Level 3.7 g/dL (3.5-5.1); Alkaline Phosphatase 93 U/L (38-126); Anion Gap 6 mmol/L (8-16); Aspartate Amino Transferase 30 U/L (14-36); Bilirubin,Total 0.3 mg/dL (0.2-1.3); Blood Urea Nitrogen 34 mg/dL (7-17); CRP 15.8 mg/dL (<1.0); Calcium 8.8 mg/dL (8.4-10.2); Carbon Dioxide 24 mmol/L (22-30); Chloride 107 mmol/L (98-107); Estimated CRCL calculation 46 ml/min; Estimated Glomerular Filt Rate 32; Glucose 169 mg/dL (65-110); Lactate Dehydrogenase 656 U/L (313-618); Magnesium 2.2 mg/dL (1.6-2.3); Potassium 4.5 mmol/L (3.4-5.0); Sodium 137 mmol/L (137-145)
--- NOTE | 2021-03-09 08:40 | P.PNIM_ITS ---
Progress Note: A&P Assessment and Plan (1) COVID-19: Code(s): U07.1 - COVID-19 Status: Acute Assessment and Plan: * bilateral pneumonia interstitial on chest xray * H&P indicates patient was diagnosed yesterday * Not hypoxic * Continue to monitor * No indication of remdesivir or Decadron for now * inflammatory markers: LDH 656, CRP 15.8, ferritin 711 (2) Neurogenic bladder: Code(s): N31.9 - Neuromuscular dysfunction of bladder, unspecified Status: Acute Assessment and Plan: * chronic Vigil catheter due to urinary retention/neurogenic bladder * Follows with urology * Looks like she seen Ashlyn in the office on 02/10/21 * Probably does not need consult at this time * talked to Ashlyn from Urology who states the Vigil should just be changed out at this time (3) Wound of skin: Code(s): T14.8XXA - Other injury of unspecified body region, initial encounter Status: Acute Assessment and Plan: * wound care stated this is incontinence dermatitis orders are in * wound care consult * nystatin for anti fungal * Await further recommendations from the wound care team (4) Alzheimer's dementia without behavioral disturbance: Qualifiers: Alzheimer's disease onset: early-onset Qualified Code(s): G30.0 - Alzheimer's disease with early onset; F02.80 - Dementia in other diseases classified elsewhere without behavioral disturbance Code(s): G30.9 - Alzheimer's disease, unspecified; F02.80 - Dementia in other diseases classified elsewhere without behavioral disturbance Status: Acute Assessment and Plan: * Alzheimer's dementia without behavioral disturbance * Continue paroxetine and namenda from home * Trend mood (5) Diabetic neuropathy: Qualifiers: Diabetes mellitus type: type 2 Diabetes mellitus complication detail: diabetic polyneuropathy Qualified Code(s): E11.42 - Type 2 diabetes mellitus with diabetic polyneuropathy Code(s): E11.40 - Type 2 diabetes mellitus with diabetic neuropathy, unspecified Status: Acute Assessment and Plan: * Looks like she is on lyrica at home * Hold for now while she is altered * Will continue when appropriate (6) Hyperlipidemia: Code(s): E78.5 - Hyperlipidemia, unspecified Status: Acute Assessment and Plan: * Continue atorvastatin * AST slightly elevated * Continue to trend LFTs * Ok for now (7) MALIA on CPAP: Code(s): G47.33 - Obstructive sleep apnea (adult) (pediatric); Z99.89 - Dependence on other enabling machines and devices Status: Acute Assessment and Plan: * Patient uses ASV at home * Settings are Epap of 9, MinPS 3, MaxPS 8 * Look complaint as of 05/11/20 * Sees Anupam Trinidad for pulmonology * Continue home setting (8) Type 2 diabetes mellitus with hyperglycemia: Qualifiers: Diabetes mellitus manager terminal insulin use: with manager terminal use Qualified Code(s): E11.65 - Type 2 diabetes mellitus with hyperglycemia; Z79.4 - remote computer terminal operator (current) use of insulin Code(s): E11.65 - Type 2 diabetes mellitus with hyperglycemia Status: Acute Assessment and Plan: * Current glucose is 169 * Hold Home regimen for now * Start sliding scale * Accu Checks * Diabetic diet * Adjust therapy as indicated * Trend glucose (9) Chronic kidney disease due to diabetes
--- NOTE | 2021-03-09 08:40 | PM.IMPN ---
Progress Note: A&P Assessment and Plan (1) COVID-19: Code(s): U07.1 - COVID-19 Status: Acute Assessment and Plan: bilateral pneumonia interstitial on chest xray H&P indicates patient was diagnosed yesterday Not hypoxic Continue to monitor No indication of remdesivir or Decadron for now inflammatory markers: LDH 656, CRP 15.8, ferritin 711 (2) Neurogenic bladder: Code(s): N31.9 - Neuromuscular dysfunction of bladder, unspecified Status: Acute Assessment and Plan: chronic Vigil catheter due to urinary retention/neurogenic bladder Follows with urology Looks like she seen Ashlyn in the office on 02/10/21 Probably does not need consult at this time talked to Ashlyn from Urology who states the Vigil should just be changed out at this time (3) Wound of skin: Code(s): T14.8XXA - Other injury of unspecified body region, initial encounter Status: Acute Assessment and Plan: wound care stated this is incontinence dermatitis orders are in wound care consult nystatin for anti fungal Await further recommendations from the wound care team (4) Alzheimer's dementia without behavioral disturbance: Qualifiers: Alzheimer's disease onset: early-onset Qualified Code(s): G30.0 - Alzheimer's disease with early onset; F02.80 - Dementia in other diseases classified elsewhere without behavioral disturbance Code(s): G30.9 - Alzheimer's disease, unspecified; F02.80 - Dementia in other diseases classified elsewhere without behavioral disturbance Status: Acute Assessment and Plan: Alzheimer's dementia without behavioral disturbance Continue paroxetine and namenda from home Trend mood (5) Diabetic neuropathy: Qualifiers: Diabetes mellitus type: type 2 Diabetes mellitus complication detail: diabetic polyneuropathy Qualified Code(s): E11.42 - Type 2 diabetes mellitus with diabetic polyneuropathy Code(s): E11.40 - Type 2 diabetes mellitus with diabetic neuropathy, unspecified Status: Acute Assessment and Plan: Looks like she is on lyrica at home Hold for now while she is altered Will continue when appropriate (6) Hyperlipidemia: Code(s): E78.5 - Hyperlipidemia, unspecified Status: Acute Assessment and Plan: Continue atorvastatin AST slightly elevated Continue to trend LFTs Ok for now (7) MALIA on CPAP: Code(s): G47.33 - Obstructive sleep apnea (adult) (pediatric); Z99.89 - Dependence on other enabling machines and devices Status: Acute Assessment and Plan: Patient uses ASV at home Settings are Epap of 9, MinPS 3, MaxPS 8 Look complaint as of 05/11/20 Sees Anupma Trinidad for pulmonology Continue home setting (8) Type 2 diabetes mellitus with hyperglycemia: Qualifiers: Diabetes mellitus custodial insulin use: with formulator use Qualified Code(s): E11.65 - Type 2 diabetes mellitus with hyperglycemia; Z79.4 - jail (current) use of insulin Code(s): E11.65 - Type 2 diabetes mellitus with hyperglycemia Status: Acute Assessment and Plan: Current glucose is 169 Hold Home regimen for now Start sliding scale Accu Checks Diabetic diet Adjust therapy as indicated Trend glucose (9) Chronic kidney disease due to diabetes mellitus: Code(s): E11.22 - Type 2 diabetes mellitus with diabetic chronic kidney disease Status: Acute Assessment and Plan: chronic kidney disease stage 3 baseline Baseline BUN/Cr 30-50/1.2-1.6 Current 34/1.60 Continue to trend Avoid nephrotoxic medications (10) Chronic obstructive pulmonary disease: Qualifiers: COPD type: unspecified COPD Qualified Code(s): J44.9 - Chronic obstructive pulmonary disease, unspecified Code(s): J44.9 - Chronic obstructive pulmonary disease, uns
[2021-03-09] MEDS: MULTIVITAMINS /C LUTEIN (CENTRUM SILVER) TABLET *BKC 1 TAB PO (09:04)
[2021-03-09] MEDS: BENZTROPINE MESYLATE 0.5 MG TABLET PO ×3 (09:04→18:05)
[2021-03-09] MEDS: cloNIDine HCL 0.1 MG TABLET PO ×2 (09:04→21:17)
[2021-03-09] MEDS: FERROUS SULFATE 324 MG TABLET PO (09:04)
[2021-03-09] MEDS: PARoxetine 20 MG TABLET PO (09:04)
[2021-03-09] MEDS: METOPROLOL TARTRATE 50 MG TAB PO ×2 (09:05→21:16)
[2021-03-09] MEDS: ATORVASTATIN 10 MG TABLET PO (09:05)
[2021-03-09] MEDS: QUEtiapine FUMARATE 100 MG TABLET 200 MG PO ×2 (09:05→21:17)
[2021-03-09] MEDS: ACIDOPHILUS/BULGARICUS CHEWABLE TABLET 1 TABLET BY MOUTH (09:05)
[2021-03-09] MEDS: lisinopriL 20 MG TABLET 40 MG PO (09:05)
[2021-03-09] MEDS: FUROSEMIDE INJ 40 MG/4 ML VIAL IV PUSH (13:56)
[2021-03-09] MEDS: BISACODYL 10 MG SUPPOSITORY RECTAL (13:56)
--- NOTE | 2021-03-09 16:13 | PCDIET ---
Spoke to nursing who is worried about intake. Attempted to contact pt via phone but no answer. Unable to visit with pt due to covid precautions. Per EMR, current diet is heart healthy with reported intake of 0% and 5%. Nursing reports that pt has been refusing meals but they are able to get her to take bites of food here and there. RDN added orders for ensure compact BID to provide an additional 220kcal and 9g of protein to increase caloric intake. Nursing has been made known of this and agrees to encourage intake of heart healthy diet and dietary supplement. Agree with current diet orders. Will continue to follow and monitor labs, medications, wt, and intake.
[2021-03-09] MEDS: MEMANTINE HCL XR 28 MG CAP PO (21:16)
[2021-03-09] MEDS: DONEPEZIL HCL 10 MG TABLET PO (21:17)
[2021-03-10] VITALS (7 sets, daily range): BP systolic 138–170; BP diastolic 73–94; PULSE 81–91; RESP 16–20; TEMP 35.9–37.5; O2SAT 91–94
[2021-03-10] MEDS: LEVOTHYROXINE SODIUM 25 MCG TABLET PO (05:16)
[2021-03-10] MEDS: ENOXAPARIN 80 MG/0.8 ML SYRINGE 135 MG SUB-Q (05:16)
[2021-03-10 06:03] LABS: Basophils Percent Auto 0.2 % (0.2-1.2); Eosinophils Percent Auto 0.7 % (0-4.4); Hemoglobin 10.8 g/dL (12.0-15.0); Immature Granulocyte Absolute 0.05 K/mm3 (0.00-0.031); Immature Granulocyte Percent A 1.2 % (0-0.5); Lymphocytes Absolute Auto 0.75 K/mm3 (0.9-3.2); Lymphocytes Percent Auto 18.6 % (18.3-44.2); Mean Corpuscular HGB Conc 31.8 g/dl (32-36); Mean Corpuscular Hemoglobin 28.7 pg (26-34); Mean Corpuscular Volume 90.4 fl (80-100); Mean Platelet Volume 10.8 fl (7.4-10.4); Monocytes Absolute Auto 0.4 K/mm3 (0.1-0.6); Monocytes Percent Auto 10.2 % (2.6-8.5); Neutrophils Absolute Auto 2.8 K/mm3 (1.3-6.7); Neutrophils Percent Auto 69.1 % (45.5-73.1); Platelet Count Result 160 k/mm3 (150-375); Red Blood Count 3.76 M/mm3 (4.2-5.4); Red Cell Distribution Width 16.2 % (11.5-14.5)
[2021-03-10 06:55] LABS: Alanine Aminotransferase 24 U/L (4-35); Albumin Level 3.7 g/dL (3.5-5.1); Alkaline Phosphatase 104 U/L (38-126); Anion Gap 7 mmol/L (8-16); Aspartate Amino Transferase 27 U/L (14-36); Bilirubin,Total 0.5 mg/dL (0.2-1.3); Blood Urea Nitrogen 35 mg/dL (7-17); CRP 15.4 mg/dL (<1.0); Calcium 8.7 mg/dL (8.4-10.2); Carbon Dioxide 25 mmol/L (22-30); Chloride 104 mmol/L (98-107); Estimated CRCL calculation 44 ml/min; Estimated Glomerular Filt Rate 30; Glucose 209 mg/dL (65-110); Lactate Dehydrogenase 602 U/L (313-618); Magnesium 2.2 mg/dL (1.6-2.3); Potassium 4.4 mmol/L (3.4-5.0); Sodium 136 mmol/L (137-145)
[2021-03-10 07:15] LABS: D Dimer 0.27 ug/mL (<0.48)
--- NOTE | 2021-03-10 07:30 | P.DS_ITS ---
DS: Admitting Diagnosis Discharge Date to 03/10/2021 at 7:30 a.m. Admitting Diagnosis bilateral PE, COVID-19, UTI DS: Discharge Diagnosis Discharge Diagnosis (1) COVID-19: Code(s): U07.1 - COVID-19 Status: Acute Assessment and Plan: * bilateral pneumonia interstitial on chest xray * H&P indicates patient was diagnosed yesterday * Not hypoxic * Continue to monitor * No indication of remdesivir or Decadron for now * inflammatory markers: LDH 656, CRP 15.8, ferritin 711 (2) Neurogenic bladder: Code(s): N31.9 - Neuromuscular dysfunction of bladder, unspecified Status: Acute Assessment and Plan: * chronic Vigil catheter due to urinary retention/neurogenic bladder * Follows with urology * Looks like she seen Ashlyn in the office on 02/10/21 * Probably does not need consult at this time * talked to Ashlyn from Urology who states the Vigil should just be changed out at this time (3) Wound of skin: Code(s): T14.8XXA - Other injury of unspecified body region, initial encounter Status: Acute Assessment and Plan: * wound care stated this is incontinence dermatitis orders are in * wound care consult * nystatin for anti fungal * Await further recommendations from the wound care team (4) Alzheimer's dementia without behavioral disturbance: Qualifiers: Alzheimer's disease onset: early-onset Qualified Code(s): G30.0 - Alzheimer's disease with early onset; F02.80 - Dementia in other diseases classified elsewhere without behavioral disturbance Code(s): G30.9 - Alzheimer's disease, unspecified; F02.80 - Dementia in other diseases classified elsewhere without behavioral disturbance Status: Acute Assessment and Plan: * Alzheimer's dementia without behavioral disturbance * Continue paroxetine and namenda from home * Trend mood (5) Diabetic neuropathy: Qualifiers: Diabetes mellitus complication detail: diabetic polyneuropathy Diabetes mellitus type: type 2 Qualified Code(s): E11.42 - Type 2 diabetes mellitus with diabetic polyneuropathy Code(s): E11.40 - Type 2 diabetes mellitus with diabetic neuropathy, unspecified Status: Acute Assessment and Plan: * Looks like she is on lyrica at home * Hold for now while she is altered * Will continue when appropriate (6) Hyperlipidemia: Code(s): E78.5 - Hyperlipidemia, unspecified Status: Acute Assessment and Plan: * Continue atorvastatin * AST slightly elevated * Continue to trend LFTs * Ok for now (7) MALIA on CPAP: Code(s): G47.33 - Obstructive sleep apnea (adult) (pediatric); Z99.89 - Dependence on other enabling machines and devices Status: Acute Assessment and Plan: * Patient uses ASV at home * Settings are Epap of 9, MinPS 3, MaxPS 8 * Look complaint as of 05/11/20 * Sees Anupam Trinidad for pulmonology * Continue home setting (8) Type 2 diabetes mellitus with hyperglycemia: Qualifiers: Diabetes mellitus mcc insulin use: with terminal carman use Qualified Code(s): E11.65 - Type 2 diabetes mellitus with hyperglycemia; Z79.4 - [facility] (current) use of insulin Code(s): E11.65 - Type 2 diabetes mellitus with hyperglycemia Status: Acute Assessment and Plan: * Current glucose is 169 * Hold Home regimen for now * Start sliding scale * Accu Check
--- NOTE | 2021-03-10 07:30 | PM.DS ---
DS: Admitting Diagnosis Discharge Date to 03/10/2021 at 7:30 a.m. Admitting Diagnosis bilateral PE, COVID-19, UTI DS: Discharge Diagnosis Discharge Diagnosis (1) COVID-19: Code(s): U07.1 - COVID-19 Status: Acute Assessment and Plan: bilateral pneumonia interstitial on chest xray H&P indicates patient was diagnosed yesterday Not hypoxic Continue to monitor No indication of remdesivir or Decadron for now inflammatory markers: LDH 656, CRP 15.8, ferritin 711 (2) Neurogenic bladder: Code(s): N31.9 - Neuromuscular dysfunction of bladder, unspecified Status: Acute Assessment and Plan: chronic Vigil catheter due to urinary retention/neurogenic bladder Follows with urology Looks like she seen Ashlyn in the office on 02/10/21 Probably does not need consult at this time talked to Ashlyn from Urology who states the Vigil should just be changed out at this time (3) Wound of skin: Code(s): T14.8XXA - Other injury of unspecified body region, initial encounter Status: Acute Assessment and Plan: wound care stated this is incontinence dermatitis orders are in wound care consult nystatin for anti fungal Await further recommendations from the wound care team (4) Alzheimer's dementia without behavioral disturbance: Qualifiers: Alzheimer's disease onset: early-onset Qualified Code(s): G30.0 - Alzheimer's disease with early onset; F02.80 - Dementia in other diseases classified elsewhere without behavioral disturbance Code(s): G30.9 - Alzheimer's disease, unspecified; F02.80 - Dementia in other diseases classified elsewhere without behavioral disturbance Status: Acute Assessment and Plan: Alzheimer's dementia without behavioral disturbance Continue paroxetine and namenda from home Trend mood (5) Diabetic neuropathy: Qualifiers: Diabetes mellitus complication detail: diabetic polyneuropathy Diabetes mellitus type: type 2 Qualified Code(s): E11.42 - Type 2 diabetes mellitus with diabetic polyneuropathy Code(s): E11.40 - Type 2 diabetes mellitus with diabetic neuropathy, unspecified Status: Acute Assessment and Plan: Looks like she is on lyrica at home Hold for now while she is altered Will continue when appropriate (6) Hyperlipidemia: Code(s): E78.5 - Hyperlipidemia, unspecified Status: Acute Assessment and Plan: Continue atorvastatin AST slightly elevated Continue to trend LFTs Ok for now (7) MALIA on CPAP: Code(s): G47.33 - Obstructive sleep apnea (adult) (pediatric); Z99.89 - Dependence on other enabling machines and devices Status: Acute Assessment and Plan: Patient uses ASV at home Settings are Epap of 9, MinPS 3, MaxPS 8 Look complaint as of 05/11/20 Sees Anupam Trinidad for pulmonology Continue home setting (8) Type 2 diabetes mellitus with hyperglycemia: Qualifiers: Diabetes mellitus halfway insulin use: with halfway use Qualified Code(s): E11.65 - Type 2 diabetes mellitus with hyperglycemia; Z79.4 - care home (current) use of insulin Code(s): E11.65 - Type 2 diabetes mellitus with hyperglycemia Status: Acute Assessment and Plan: Current glucose is 169 Hold Home regimen for now Start sliding scale Accu Checks Diabetic diet Adjust therapy as indicated Trend glucose (9) Chronic kidney disease due to diabetes mellitus: Code(s): E11.22 - Type 2 diabetes mellitus with diabetic chronic kidney disease Status: Acute Assessment and Plan: chronic kidney disease stage 3 baseline Baseline BUN/Cr 30-50/1.2-1.6 Current 34/1.60 Continue to trend Avoid nephrotoxic medications (10) Chronic obstructive pulmonary disease: Qualifiers: COPD type: unspecified COPD Qualified Code(s)
[2021-03-10] MEDS: PARoxetine 20 MG TABLET PO (09:59)
[2021-03-10] MEDS: BENZTROPINE MESYLATE 0.5 MG TABLET PO ×3 (09:59→17:42)
[2021-03-10] MEDS: ATORVASTATIN 10 MG TABLET PO (09:59)
[2021-03-10] MEDS: MULTIVITAMINS /C LUTEIN (CENTRUM SILVER) TABLET *BKC 1 TAB PO (09:59)
[2021-03-10] MEDS: FERROUS SULFATE 324 MG TABLET PO (09:59)
[2021-03-10] MEDS: lisinopriL 20 MG TABLET 40 MG PO (09:59)
[2021-03-10] MEDS: cloNIDine HCL 0.1 MG TABLET PO ×2 (10:00→20:41)
[2021-03-10] MEDS: QUEtiapine FUMARATE 100 MG TABLET 200 MG PO ×2 (10:00→20:40)
[2021-03-10] MEDS: ACIDOPHILUS/BULGARICUS CHEWABLE TABLET 1 TABLET BY MOUTH (10:00)
[2021-03-10] MEDS: METOPROLOL TARTRATE 50 MG TAB PO ×2 (10:01→20:41)
[2021-03-10 12:01] LABS: Glucose Point of Care 176 mg/dl (65-105)
[2021-03-10 16:44] LABS: Glucose Point of Care 174 mg/dl (65-105)
[2021-03-10] MEDS: RIVAROXABAN 15 MG TABLET PO (17:41)
[2021-03-10] MEDS: DONEPEZIL HCL 10 MG TABLET PO (20:41)
[2021-03-10] MEDS: MEMANTINE HCL XR 28 MG CAP PO (20:41)
[2021-03-10 23:35] LABS: Glucose Point of Care 184 mg/dl (65-105)
[2021-03-11] VITALS: BP 136/78; PULSE 83; RESP 18; TEMP 36.6; O2SAT 94
[2021-03-11 04:00] VITALS: BP 153/72; PULSE 97; RESP 20; TEMP 36.2; O2SAT 93
[2021-03-11] MEDS: LEVOTHYROXINE SODIUM 25 MCG TABLET PO (07:16)
[2021-03-11 08:00] VITALS: BP 184/81; PULSE 90; RESP 18; TEMP 35.7; O2SAT 94
[2021-03-11] MEDS: MULTIVITAMINS /C LUTEIN (CENTRUM SILVER) TABLET *BKC 1 TAB PO (08:38)
[2021-03-11] MEDS: RIVAROXABAN 15 MG TABLET PO (08:38)
[2021-03-11] MEDS: ACIDOPHILUS/BULGARICUS CHEWABLE TABLET 1 TABLET BY MOUTH (08:38)
[2021-03-11] MEDS: lisinopriL 20 MG TABLET 40 MG PO (08:38)
[2021-03-11] MEDS: ATORVASTATIN 10 MG TABLET PO (08:38)
[2021-03-11] MEDS: PARoxetine 20 MG TABLET PO (08:38)
[2021-03-11 08:39] VITALS: PULSE 92
[2021-03-11] MEDS: BENZTROPINE MESYLATE 0.5 MG TABLET PO (08:39)
[2021-03-11] MEDS: QUEtiapine FUMARATE 100 MG TABLET 200 MG PO (08:39)
[2021-03-11] MEDS: cloNIDine HCL 0.1 MG TABLET PO (08:39)
[2021-03-11] MEDS: METOPROLOL TARTRATE 50 MG TAB PO (08:39)
[2021-03-11] MEDS: FERROUS SULFATE 324 MG TABLET PO (08:39)
[2021-03-11] MEDS: LACTULOSE 20 GM/30 ML UDC 30 GM PO (08:40)
--- NOTE | 2021-03-11 09:00 | P.PNCROSS_ITS ---
Event Note Event Note Event Note: 03/11/21 RN notified me patient was discharged 03/10/21 but family unable to provide transportation. Ride provided 03/11/21 in the marketing operations associate. No acute changes per RN and discharge was in place by previous provider.
== END 2021-03-11 09:55 | disposition home health service (06) | DRG 698 ==
LOC: ANHED 23:42 → ANH3MEDSUR 03-06 01:39
PROVIDERS: General Practice; Nurse Practitioner; Admitting Provider Internal Medicine; Emergency Provider Emergency Medicine; PCP Family Medicine; Visit Provider Physician Assistant
DX: T83.511A Infection and inflammatory reaction due to indwelling urethral catheter, initial encounter (principal); G93.41 Metabolic encephalopathy; U07.1 COVID-19; J12.82 Pneumonia due to coronavirus disease 2019; Z68.41 Body mass index [BMI] 40.0-44.9, adult; N39.0 Urinary tract infection, site not specified; N31.8 Other neuromuscular dysfunction of bladder; L30.8 Other specified dermatitis; G30.9 Alzheimer's disease, unspecified; F02.80 Dementia in other diseases classified elsewhere, unspecified severity, without behavioral disturbance, psychotic disturbance, mood disturbance, and anxiety; E11.22 Type 2 diabetes mellitus with diabetic chronic kidney disease; I12.9 Hypertensive chronic kidney disease with stage 1 through stage 4 chronic kidney disease, or unspecified chronic kidney disease; N18.30 Chronic kidney disease, stage 3 unspecified; E11.42 Type 2 diabetes mellitus with diabetic polyneuropathy; E78.5 Hyperlipidemia, unspecified; G47.33 Obstructive sleep apnea (adult) (pediatric); E11.65 Type 2 diabetes mellitus with hyperglycemia; J44.9 Chronic obstructive pulmonary disease, unspecified; R26.9 Unspecified abnormalities of gait and mobility; F41.1 Generalized anxiety disorder; E03.9 Hypothyroidism, unspecified; D64.9 Anemia, unspecified; R09.89 Other specified symptoms and signs involving the circulatory and respiratory systems; K59.00 Constipation, unspecified; R33.8 Other retention of urine; E66.01 Morbid (severe) obesity due to excess calories; L89.302 Pressure ulcer of unspecified buttock, stage 2; Z79.4 Long term (current) use of insulin
CPT/HCPCS: 36415; 70450; 71045; 71275; 80053; 81001; 82140; 82728; 82948; 83605; 83615; 83735; 84443; 85025; 85380; 86140; 87040; 87086; 87088; 93005; 93306; 96365; 96372; 97161; 97165; 97535; 99285; A9270; G0378; J0131; J0692; J0696; J1650; J1940; J2405; Q9967

== ENCOUNTER 2021-03-11 10:59 | Observation (INO) | payer MEDICARE, OTHER, SELFPAY ==
--- NOTE | ~2021-03-11 | US_ITS ---
EXAMINATION: US renal BI DATE: 03/13/2021 12:55 INDICATION: Chronic kidney disease TECHNIQUE: Multiple ultrasound grayscale images of the kidneys were obtained. COMPARISON: 12/14/2013 FINDINGS: The right kidney measures 12.5 x 6.2 x 5.8 cm. The left kidney measures 10.8 x 5.3 x 4.9 cm. The kidn eys demonstrate normal echogenicity. Bilateral anechoic renal cysts measuring 1.4 cm in the right kid abby and 2.0 and 1.6 cm in the left kidney. There is no hydronephrosis in either kidney. No stones id entified. There is a Vigil catheter in the normal appearing gallbladder.. IMPRESSION: 1. Small bilateral renal cysts. Otherwise normal kidneys with no hydronephrosis. Reviewed, dictated and finalized at location . UITMENT COORDINATOR IMPRESSION: 1. Small bilateral renal cysts. Otherwise normal kidneys with no hydronephrosi s.
--- NOTE | ~2021-03-11 | XR_ITS ---
EXAMINATION: XR abdomen obstructive series DATE: 03/12/2021 14:20 INDICATION: Abdominal pain. TECHNIQUE: Upright and supine views of the abdomen on 3 radiographs were obtained. COMPARISON: Chest CT 03/07/2021 FINDINGS: There are no dilated loops of bowel. There is a small volume of stool in the colon. No free intraperitoneal gas. There are changes of anterior and posterior fusion procedures in lumbosacral sp ine. IMPRESSION: 1. Normal bowel gas pattern. Reviewed, dictated and finalized at location A. ESTATE OFFICER
--- NOTE | ~2021-03-11 | CT_ITS ---
EXAMINATION: CT brain wo con DATE: 03/11/2021 17:32 INDICATION: Altered mental status TECHNIQUE: Computed tomography (CT) of the head was performed without intravenous contrast. Sagittal and coronal reconstructions were performed. The mA was adjusted according to patient size. Iterative reconstruction technique was employed. The dose-length product was 832.33 mGy-cm. COMPARISON: head CT dated 03/05/2021 FINDINGS: No acute intracranial hemorrhage, acute infarction or abnormal extra axial fluid collection. There is mild scattered white matter hypoattenuation consistent with chronic small vessel ischemic disease. S ymmetric prominence of the sulci and subarachnoid spaces overlying the convexities consistent with mi ld age-appropriate diffuse cerebral volume loss. Ventricles are normal and symmetric. Unchanged 1.5 x 1.4 x 0.7 cm extra-axial mass along the left cerebellopontine angle which can be seen dating back to MRI dated 10/29/2011 most consistent with a meningioma. Complete opacification of the right maxillary sinus with additional moderate mucosal thickening scattered throughout the remainder of the paranasa l sinuses. The sinus disease is without significant interval change since 05/12/2020. The orbits and m astoid air cells are normal. Hyperostosis frontalis. IMPRESSION: 1. No acute intracranial process. 2. Chronic extra-axial left cerebellopontine angle mass consistent with meningioma. 3. Age-related changes including mild diffuse volume loss and mild scattered white matter hypoattenua tion consistent with chronic small vessel schema disease. 4. Chronic sinus disease. Reviewed, dictated and finalized at [facility]. ERY REPAIRER IMPRESSION: 1. No acute intracranial process. 2. Chronic extra-axial left cerebellopontine angle mass consistent with meningi elmer. 3. Age-related changes including mild diffuse volume loss and mild scattered wh ite matter hypoattenuation consistent with chronic small vessel schema disease. 4. Chronic sinus disease.
--- NOTE | ~2021-03-11 | US_ITS ---
EXAMINATION: US pelvic complete w TV DATE: 03/15/2021 13:12 INDICATION: Vaginal pain TECHNIQUE: Multiple transabdominal and endovaginal sonographic images of the pelvis were obtained. COMPARISON: None. FINDINGS: Uterus and bilateral ovaries are not visualized consistent with provided history of total hysterectom y and bilateral salpingo-oophorectomy. No abnormal masses identified. There is no free fluid in the p britni. IMPRESSION: 1. No abnormal masses or fluid collections identified at the uterine fossa post reported total abdomi nal hysterectomy and bilateral salpingooophorectomy. Reviewed, dictated and finalized at location . 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 No abnormal masses or fluid collections identified at the uterine fossa post reported total abdominal hysterectomy and bilateral salpingooophorectomy.
--- NOTE | ~2021-03-11 | MR_ITS ---
EXAMINATION: MR brain/brain stem wo con DATE: 03/15/2021 13:05 INDICATION: Altered mental status TECHNIQUE: Magnetic resonance imaging (MRI) of the brain and brainstem was performed without intraven ous contrast. Sequences included sagittal and axial T1-weighted SE, axial diffusion-weighted FS SE, a xial T2*-weighted GRE, axial T2-weighted FLAIR, and axial T2-weighted FSE. Apparent diffusion coeffic ient (ADC) maps were created. COMPARISON: Head CT dated 03/11/2021 and brain MR dated 07/06/2011 FINDINGS: There are no areas of restricted diffusion to suggest acute infarction. No intracranial hemorrhage or abnormal intra-axial mass lesion. No significant change in a chronic 1.7 x 1.5 x 0.7 cm extra-axial dural based mass along the left cerebral pontine angle most consistent with a meningioma. There are n o intraparenchymal signal abnormalities seen on the other pulse sequences. The ventricles are symmetr ic and normal in size. There are no abnormal extra-axial fluid collections. Flow voids are seen in th e cerebral arteries on the T2-weighted sequences consistent with their expected patency. Prominent mu cosal thickening in the right maxillary and bilateral ethmoid sinuses and mild mucosal thickening the bilateral frontal sinuses. Visualized orbits and soft tissues are otherwise unremarkable. Mild hyper ostosis frontalis. IMPRESSION: 1. No acute intracranial process. 2. Chronic 1.7 x 1.5 x 0.7 cm extra-axial dural based left cerebellopontine angle mass consistent wit h meningioma. 3. Chronic sinus disease. Reviewed, dictated and finalized at location [facility]. ORIZER IMPRESSION: 1. No acute intracranial process. 2. Chronic 1.7 x 1.5 x 0.7 cm extra-axial dural based left cerebellopontine ang le mass consistent with meningioma. 3. Chronic sinus disease.
[2021-03-11 11:01] VITALS: BP 147/75; PULSE 86; RESP 18; TEMP 36.4; O2SAT 98
[2021-03-11 13:55] VITALS: BP 156/75; PULSE 88; RESP 18; O2SAT 98
[2021-03-11 14:43] VITALS: BP 149/67; PULSE 103; RESP 18; O2SAT 95
[2021-03-11 16:13] VITALS: BP 113/84; PULSE 94; RESP 18; TEMP 36.4; O2SAT 95
--- NOTE | 2021-03-11 16:47 | ECG_ITS ---
Measurements Intervals [place] Rate: 84 P: 41 WI: 169 QRS: -16 QRSD: 120 T: 35 QT: 367 QTc: 434 Interpretive Statements SINUS RHYTHM INTRAVENTRICULAR CONDUCTION DELAY DELAYED PRECORDIAL R/S TRANSITION BORDERLINE ECG Electronically Signed On 03-12-2021 7:38:40 PURCHASING SPECIALIST by Bulmaro Knight D.O.
[2021-03-11 18:02] LABS: Basophils Percent Auto 0.3 % (0.2-1.2); Eosinophils Absolute Auto 0.1 K/mm3 (0-0.3); Eosinophils Percent Auto 1.1 % (0-4.4); Hematocrit 34.8 % (37.0-47.0); Immature Granulocyte Absolute 0.09 K/mm3 (0.00-0.031); Immature Granulocyte Percent A 1.4 % (0-0.5); Lymphocytes Absolute Auto 0.74 K/mm3 (0.9-3.2); Lymphocytes Percent Auto 11.3 % (18.3-44.2); Mean Corpuscular HGB Conc 31.6 g/dl (32-36); Mean Corpuscular Hemoglobin 29.4 pg (26-34); Mean Platelet Volume 11.4 fl (7.4-10.4); Monocytes Absolute Auto 0.6 K/mm3 (0.1-0.6); Neutrophils Absolute Auto 5.1 K/mm3 (1.3-6.7); Neutrophils Percent Auto 76.9 % (45.5-73.1); Platelet Count Result 225 k/mm3 (150-375); Red Blood Count 3.74 M/mm3 (4.2-5.4); Red Cell Distribution Width 16.4 % (11.5-14.5); White Blood Count 6.6 K/mm3 (4.5-10.0)
--- NOTE | 2021-03-11 19:14 | ED.AMS ---
HPI - Altered Mental Status General Chief Complaint: Altered Mental Status Stated Complaint: altered mental Time Seen by Provider: 03/11/21 16:14 Source: family Mode of arrival: wheelchair Limitations: dementia History of Present Illness HPI narrative: 65-year-old with a history of dementia, diabetes was brought in by her daughter with complaints of confusion. Patient was discharged from the hospital earlier this morning with diagnosis of Covid and UTI. As per the daughter patient is more confused and is now unable to remember her family and her grand kids. Patient is pleasantly confused denies any pain or difficulty breathing. complaint: confusion Timing confirmed by: family member Related Data Home Medications Medication Instructions Recorded Confirmed levothyroxine 25 mcg capsule 25 mcg PO DAILY 07/27/19 03/06/21 lisinopril 40 mg tablet 40 mg PO DAILY 07/27/19 03/06/21 quetiapine 200 mg tablet 200 mg PO BID 07/27/19 03/06/21 acetaminophen 500 mg tablet 1,000 mg PO BID PRN tablet 07/10/20 03/06/21 lactobacillus combination no.9 4 4,000 mmu cells PO DAILY 07/10/20 03/06/21 billion cell capsule paroxetine HCl 20 mg tablet 20 mg PO DAILY 07/10/20 03/06/21 Adults Multivitamin 1 tablet PO DAILY 03/06/21 03/06/21 Namzaric 1 cap PO HS 03/06/21 03/06/21 benztropine 0.5 mg PO TID 03/06/21 03/06/21 ferrous sulfate [Iron (ferrous 325 mg PO DAILY 03/06/21 03/06/21 sulfate)] lactulose 30 g PO BID PRN 03/06/21 03/06/21 Allergies Allergy/AdvReac Type Severity Reaction Status Date / Time ciprofloxacin Allergy Mild Hives Verified 03/06/21 02:27 metronidazole Allergy Mild Hives Verified 03/06/21 02:27 divalproex sodium Allergy Unknown Unknown Verified 03/06/21 02:27 vancomycin Allergy Unknown Unknown Verified 03/06/21 02:27 Review of Systems Review of Systems: ROS unobtainable: Yes unobtainable due to mental status PMFSH Past Medical History Medical History Abnormality of gait and mobility Benign essential HTN Benign essential hypertension Brain hypoxia Chronic kidney disease due to diabetes mellitus Diabetic neuropathy RAMAN (generalized anxiety disorder) MALIA on CPAP Type 2 diabetes mellitus with hyperglycemia Family History Family History Father Diabetes mellitus Hypertension Patient's father is , Onset Age: 75 Family history of renal failure Mother Family history of malignant neoplasm of stomach Other Family history of arthritis Social History Social History Social History: Smoking status: Never smoker Second hand tobacco smoke exposure: No Alcohol intake: never Substance use: current Substance use type: marijuana Other substance usage details: on occasion; afraid to ask doctor for a prescription, but it helps symptoms Gender identity (if verbalized by the patient): Female Sexual Orientation (if Verbalized by the Patient): Straight or Heterosexual Spiritual care concerns: No Exam Narrative: GENERAL: Well-appearing, well-nourished, and in no acute distress. HEAD: Normocephalic, atraumatic. EYES: PERRLA and EOMI.. NECK: Supple. CHEST: Clear to auscultation. No respiratory distress. HEART: Regular rate and rhythm. No murmur heard. Normal peripheral pulses. ABDOMEN: Soft, nontender, nondistended, normal active bowel sounds. EXTREMITIES: Normal range of motion. No edema. SKIN: Warm, dry, no rash. NEURO: No focal deficits. Alert . PSYCH: Normal mood and affect. Course Course Emergency Course: Patient presently has no complaints. Family wants her to be admitted and placed. Because of her confusion is unknown at this time. Discussed with hospitalist agreed to admit the patient. Vital Signs Vital signs: Vital Signs Temperature 36.4 C 03/11/21 11:01 Pulse Rate 86 03/11/21 11:01 Respiratory Rate
[2021-03-11 19:25] VITALS: PULSE 98; RESP 18; O2SAT 96
[2021-03-11 19:26] VITALS: BP 161/99; PULSE 88; RESP 18; O2SAT 96
--- NOTE | 2021-03-11 19:27 | PC.NURSE ---
assumed care of pt
[2021-03-11 19:54] LABS: Alanine Aminotransferase 33 U/L (4-35); Albumin Level 3.8 g/dL (3.5-5.1); Alkaline Phosphatase 120 U/L (38-126); Anion Gap 10 mmol/L (8-16); Aspartate Amino Transferase 30 U/L (14-36); Bilirubin,Total 0.6 mg/dL (0.2-1.3); Blood Urea Nitrogen 44 mg/dL (7-17); Calcium 9.7 mg/dL (8.4-10.2); Carbon Dioxide 24 mmol/L (22-30); Chloride 106 mmol/L (98-107); Estimated CRCL calculation 41 ml/min; Estimated Glomerular Filt Rate 28; Glucose 243 mg/dL (65-110); Potassium 4.9 mmol/L (3.4-5.0); Sodium 140 mmol/L (137-145)
--- NOTE | 2021-03-11 19:57 | PM.IMHP ---
H&P: HPI History of Present Illness Date/Time: 03/11/21 19:57 Chief Complaint: ALTERED MENTAL STATUS Narrative: THIS IS A 65-YEAR-OLD FEMALE WITH PAST MEDICAL HISTORY SIGNIFICANT FOR MORBID OBESITY, TYPE 2 DIABETES MELLITUS, IRON DEFICIENCY ANEMIA, HYPERTENSION, PE ON ANTICOAGULATION, PERIPHERAL DIABETIC NEUROPATHY, OBSTRUCTIVE SLEEP APNEA ON CPAP AT NIGHTTIME. PATIENT WAS DISCHARGED HOME EARLIER IN THE DAY HOWEVER WHEN PATIENT ARRIVED HOME ACCORDING TO FAMILY SHE WAS CONFUSED NOT ABLE TO RECOGNIZE THE REST OF THE FAMILY AND THEY BROUGHT HER BACK TO THE EMERGENCY ROOM FOR PLACEMENT AND STATED THEY WERE NOT COMFORTABLE TAKING CARE OF HER AT THIS TIME. AT THE TIME OF MY VISIT PATIENT WAS UNABLE TO GIVE ANY HISTORY SHE HAS ONLY I ALERT X1. IN EMERGENCY ROOM PATIENT WAS PLACED ON SUPPLEMENTAL OXYGEN AND REPEAT CHEST X-RAY SHOWED RESOLVING INFILTRATES. Review of Systems Review of Systems: ROS unobtainable: Yes unobtainable due to medical condition (DELIRIOUS) PMF Past Medical History Medical History (Updated 03/12/21 @ 06:37 by Nerissa Frausto MD) Abnormality of gait and mobility Benign essential HTN Benign essential hypertension Brain hypoxia Chronic kidney disease due to diabetes mellitus Diabetic neuropathy RAMAN (generalized anxiety disorder) MALIA on CPAP Type 2 diabetes mellitus with hyperglycemia Family History Family History Father Diabetes mellitus Hypertension Patient's father is , Onset Age: 75 Family history of renal failure Mother Family history of malignant neoplasm of stomach Other Family history of arthritis Social History Social History Social History: Smoking status: Never smoker Second hand tobacco smoke exposure: No Alcohol intake: never Substance use: current Substance use type: marijuana Other substance usage details: on occasion; afraid to ask doctor for a prescription, but it helps symptoms Gender identity (if verbalized by the patient): Female Sexual Orientation (if Verbalized by the Patient): Straight or Heterosexual Spiritual care concerns: No Meds Home Medications and Allergies Home Medications Medication Instructions Recorded Confirmed Type levothyroxine 25 mcg capsule 25 mcg PO DAILY 07/27/19 03/12/21 History lisinopril 40 mg tablet 40 mg PO DAILY 07/27/19 03/12/21 History quetiapine 200 mg tablet 200 mg PO BID 07/27/19 03/12/21 History dapagliflozin 10 mg tablet 10 mg PO DAILY #90 tablet 05/15/20 03/12/21 Rx acetaminophen 500 mg tablet 1,000 mg PO BID PRN tablet 07/10/20 03/12/21 History lactobacillus combination no.9 4 4,000 mmu cells PO DAILY 07/10/20 03/12/21 History billion cell capsule paroxetine HCl 20 mg tablet 20 mg PO DAILY 07/10/20 03/12/21 History metoprolol tartrate 50 mg tablet 50 mg PO BID #180 tablet 09/13/20 03/12/21 Rx dulaglutide 1.5 mg/0.5 mL 1.5 mg SUBCUT WEEKLY #2 ml 10/23/20 03/12/21 Rx subcutaneous pen injector clonidine HCl 0.1 mg tablet See Rx Instructions .ROUTE 11/02/20 03/12/21 Rx .COMPLEX #60 tablet cholecalciferol (vitamin D3) 1,250 1,250 mcg PO WEEKLY #14 cap 11/08/20 03/12/21 Rx mcg (50,000 unit) capsule insulin aspart U-100 100 unit/mL 5 unit SUBCUT TID #15 ml 11/28/20 03/12/21 Rx (3 mL) subcutaneous pen atorvastatin 10 mg tablet 10 mg PO DAILY #90 tablet 12/27/20 03/12/21 Rx zinc oxide 25 % topical paste 1 applic TOPICAL BID-TID #500 g 01/07/21 03/12/21 Rx linaclotide 290 mcg capsule 290 mcg PO DAILY #90 cap 01/16/21 03/12/21 Rx pregabalin 200 mg capsule 200 mg PO TID #90 cap 01/21/21 03/12/21 Rx Adults Multivitamin 1 tablet PO DAILY 03/06/21 03/12/21 History Namzaric 1 cap PO HS 03/06/21 03/12/21 History benztropine 0.5 mg PO TID 03/06/21 03/12/21 History ferrous sulfate [Iron (ferrous 325 mg PO DAILY 03/06/21 03/12/21 History sulfate)] lactulose 30 g PO BID PRN 03/06/21 03/12/21 His
[2021-03-11] MEDS: SODIUM CHLORIDE 0.9% IV 1,000 ML 75 ML IV CONT (20:49)
[2021-03-12] VITALS (12 sets, daily range): BP systolic 118–190; BP diastolic 49–79; PULSE 72–96; RESP 16–18; TEMP 36.2–37.7; O2SAT 93–97; BMI 43.6
--- NOTE | 2021-03-12 00:13 | PC.NURSE ---
states does not feel good unable say what does not feel good pillow given for comfort
--- NOTE | 2021-03-12 02:10 | PC.NURSE ---
sleeping resp even unlabored waiting admission
[2021-03-12] MEDS: LACTULOSE 20 GM/30 ML UDC 30 GM PO (09:15)
[2021-03-12] MEDS: ATORVASTATIN 10 MG TABLET PO (09:15)
[2021-03-12] MEDS: METOPROLOL TARTRATE 50 MG TAB PO ×2 (09:15→20:23)
[2021-03-12] MEDS: DEXAMETHASONE 2 MG TABLET 6 MG PO (09:16)
[2021-03-12] MEDS: EMPAGLIFLOZIN 25 MG TABLET PO (09:16)
[2021-03-12] MEDS: PARoxetine 20 MG TABLET PO (09:16)
[2021-03-12] MEDS: AMOXICILLIN/CLAVULANATE K 875-125 MG TAB 1 TABLET PO ×2 (09:16→20:22)
[2021-03-12] MEDS: lisinopriL 20 MG TABLET 40 MG PO (09:16)
[2021-03-12] MEDS: BENZTROPINE MESYLATE 0.5 MG TABLET PO ×3 (09:16→18:06)
[2021-03-12] MEDS: FERROUS SULFATE 324 MG TABLET PO (09:17)
[2021-03-12] MEDS: MULTIVITAMINS /C LUTEIN (CENTRUM SILVER) TABLET *BKC 1 TAB PO (09:17)
[2021-03-12] MEDS: cloNIDine HCL 0.1 MG TABLET BY MOUTH ×2 (09:17→18:07)
[2021-03-12] MEDS: QUEtiapine FUMARATE 100 MG TABLET 200 MG PO ×2 (09:17→20:22)
[2021-03-12] MEDS: LEVOTHYROXINE SODIUM 25 MCG TABLET PO (09:17)
[2021-03-12] MEDS: INSULIN ASPART (*BKC) 100 UNITS/ML SUB-Q ×3 (09:18→19:06)
[2021-03-12] MEDS: INSULIN GLARGINE (*BKC) 100 UNITS/ML 45 UNITS SUB-Q ×2 (09:23→19:06)
--- NOTE | 2021-03-12 12:51 | PM.IMPN ---
Progress Note: A&P Assessment and Plan (1) Altered mental status: Code(s): R41.82 - Altered mental status, unspecified Status: Acute Assessment and Plan: Patient was discharged home on 03/11 after being hospitalized for 5 days for weakness and decreased UOP. She was diagnosed with COVID the day of admission on 03/05. She Did not require O2 during her hospital course. Echo showed EF of 65-70% with grade 1 diastolic dysfunction. CTA of the chest showed small PE and she was started on appropriate anticoagulation; CT also showed possible pneumonia treated with antibiotics.. Patient has a chronic Vigil catheter that was changed out during that hospital course. Therapy worked with her. Blood in urine cultures were negative. Patient was discharged home on 03/11/2021. A few hours later, patient returned to the ED for confusion. Patient has underlying dementia but family felt the confusion was worse. CT of the brain showed no acute findings. TSH normal. Patient is alert, pleasant but confused. Full work up completed last admission. Start PT and OT. Check B12. (2) Pulmonary embolism: Code(s): I26.99 - Other pulmonary embolism without acute cor pulmonale Status: Acute Assessment and Plan: CTA last admission showed small filling defect on right lower lobe segmental pulmonary artery suspicious for pulmonary emboli. Will resume Xarelto. (3) Alzheimer's dementia without behavioral disturbance: Qualifiers: Alzheimer's disease onset: early-onset Qualified Code(s): G30.0 - Alzheimer's disease with early onset; F02.80 - Dementia in other diseases classified elsewhere without behavioral disturbance Code(s): G30.9 - Alzheimer's disease, unspecified; F02.80 - Dementia in other diseases classified elsewhere without behavioral disturbance Status: Acute Assessment and Plan: Stable. Continue home medications. Continue to monitor. (4) Benign essential hypertension: Code(s): I10 - Essential (primary) hypertension Status: Acute Assessment and Plan: Patient's blood pressure was reviewed on 03/12 Blood pressure remains elevated at times. Will continue current medications. Will add low-dose Norvasc (5) MALIA on CPAP: Code(s): G47.33 - Obstructive sleep apnea (adult) (pediatric); Z99.89 - Dependence on other enabling machines and devices Status: Acute Assessment and Plan: Stable. Continue noninvasive ventilation at night and with naps. (6) Type 2 diabetes mellitus with hyperglycemia: Qualifiers: Diabetes mellitus medical terminologist insulin use: with custodial use Qualified Code(s): E11.65 - Type 2 diabetes mellitus with hyperglycemia; Z79.4 - watermelon inspector (current) use of insulin Code(s): E11.65 - Type 2 diabetes mellitus with hyperglycemia Status: Acute Assessment and Plan: A1c 5.6 in August. The patient's blood glucose was reviewed on 03/12 Glucose remains reasonably well controlled. Continue AccuCheks covering with sliding scale. Hypoglycemia protocol available as needed. Continue current medications. Check A1c. (7) Chronic kidney disease due to diabetes mellitus: Code(s): E11.22 - Type 2 diabetes mellitus with diabetic chronic kidney disease Status: Acute Assessment and Plan: Creatinine 1.8 on admission. This is above her baseline slightly. Will follow. Monitor oral intake (8) Pneumonia: Code(s): J18.9 - Pneumonia, unspecified organism Status: Acute Assessment and Plan: Stable. Chest CTA findings concerning for pneumonia. Could be related to COVID. Continue Augmentin to complete a course. (9) COVID-19: Code(s): U07.1 - COVID-19 Status: Acute Assessment and Plan: Not requiring oxygen. As above. Stop Decadron. Subjective Date/time seen: 03/12/21 12:51 Interval history: 65yo female with dementia, DM, CKD and HTN here for alter
[2021-03-12] MEDS: PREGABALIN (*CRX) 50 MG CAPSULE 200 MG PO ×2 (13:15→19:06)
[2021-03-12] MEDS: ZINC OXIDE 20% OINT 30 GM TUBE 1 APPLIC TOPICAL ×2 (13:16→18:09)
[2021-03-12 13:18] LABS: Glucose Point of Care 202 mg/dl (65-105)
[2021-03-12 13:18] LABS: Glucose Point of Care 226 mg/dl (65-105)
[2021-03-12] MEDS: SODIUM CHLORIDE 0.9% IV 1,000 ML 75 ML IV CONT (13:22)
[2021-03-12 17:27] LABS: Glucose Point of Care 214 mg/dl (65-105)
[2021-03-12] MEDS: amLODIPine BESYLATE 2.5 MG TABLET PO (18:06)
[2021-03-12] MEDS: RIVAROXABAN 15 MG TABLET PO (18:07)
[2021-03-12] MEDS: DONEPEZIL HCL 10 MG TABLET PO (20:23)
[2021-03-12] MEDS: MEMANTINE HCL XR 28 MG CAP PO (20:23)
[2021-03-13] VITALS (8 sets, daily range): BP systolic 143–152; BP diastolic 61–80; PULSE 66–86; RESP 16–20; TEMP 36.2–37.5; O2SAT 91–97; BMI 43.6
[2021-03-13] MEDS: SODIUM CHLORIDE 0.9% IV 1,000 ML 75 ML IV CONT (04:14)
[2021-03-13 05:00] LABS: Glucose Point of Care 246 mg/dl (65-105)
[2021-03-13] MEDS: LEVOTHYROXINE SODIUM 25 MCG TABLET PO (06:11)
[2021-03-13 07:02] LABS: Anion Gap 10 mmol/L (8-16); Blood Urea Nitrogen 44 mg/dL (7-17); Calcium 9.2 mg/dL (8.4-10.2); Carbon Dioxide 21 mmol/L (22-30); Chloride 109 mmol/L (98-107); Estimated CRCL calculation 49 ml/min; Estimated Glomerular Filt Rate 35; Glucose 218 mg/dL (65-110); Potassium 4.5 mmol/L (3.4-5.0); Sodium 140 mmol/L (137-145)
[2021-03-13 07:19] LABS: Hemoglobin A1C 6.1 % (<5.7)
[2021-03-13 08:03] LABS: Folic Acid > 20.0 ng/mL (2.76->20); Vitamin B12 > 1000.0 pg/mL (239-931)
[2021-03-13] MEDS: INSULIN ASPART (*BKC) 100 UNITS/ML SUB-Q ×3 (08:48→17:19)
[2021-03-13] MEDS: INSULIN GLARGINE (*BKC) 100 UNITS/ML 45 UNITS SUB-Q ×2 (08:48→17:19)
[2021-03-13] MEDS: amLODIPine BESYLATE 2.5 MG TABLET PO (08:49)
[2021-03-13] MEDS: AMOXICILLIN/CLAVULANATE K 875-125 MG TAB 1 TABLET PO ×2 (08:49→20:22)
[2021-03-13] MEDS: METOPROLOL TARTRATE 50 MG TAB PO ×2 (08:49→20:22)
[2021-03-13] MEDS: RIVAROXABAN 15 MG TABLET PO ×2 (08:50→17:23)
[2021-03-13] MEDS: ATORVASTATIN 10 MG TABLET PO (08:50)
[2021-03-13] MEDS: EMPAGLIFLOZIN 25 MG TABLET PO (08:50)
[2021-03-13] MEDS: FERROUS SULFATE 324 MG TABLET PO (08:50)
[2021-03-13] MEDS: QUEtiapine FUMARATE 100 MG TABLET 200 MG PO ×2 (08:50→20:22)
[2021-03-13] MEDS: BENZTROPINE MESYLATE 0.5 MG TABLET PO ×3 (08:50→17:22)
[2021-03-13] MEDS: cloNIDine HCL 0.1 MG TABLET BY MOUTH ×2 (08:50→17:23)
[2021-03-13] MEDS: PARoxetine 20 MG TABLET PO (08:51)
[2021-03-13] MEDS: lisinopriL 20 MG TABLET 40 MG PO (08:51)
[2021-03-13] MEDS: MULTIVITAMINS /C LUTEIN (CENTRUM SILVER) TABLET *BKC 1 TAB PO (08:51)
[2021-03-13] MEDS: PREGABALIN (*CRX) 50 MG CAPSULE 200 MG PO ×3 (08:55→17:24)
[2021-03-13 08:56] LABS: Glucose Point of Care 194 mg/dl (65-105)
[2021-03-13] MEDS: ZINC OXIDE 20% OINT 30 GM TUBE 1 APPLIC TOPICAL ×2 (08:56→17:25)
--- NOTE | 2021-03-13 11:54 | PM.IMPN ---
Progress Note: A&P Assessment and Plan (1) Altered mental status: Code(s): R41.82 - Altered mental status, unspecified Status: Acute Assessment and Plan: Patient was discharged home on 03/11 after being hospitalized for 5 days for weakness and decreased UOP. She was diagnosed with COVID the day of admission on 03/05. She Did not require O2 during her hospital course. Echo showed EF of 65-70% with grade 1 diastolic dysfunction. CTA of the chest showed small PE and she was started on appropriate anticoagulation; CT also showed possible pneumonia treated with antibiotics.. Patient has a chronic Vigil catheter that was changed out during that hospital course. Therapy worked with her. Blood in urine cultures were negative. Patient was discharged home on 03/11/2021. A few hours later, patient returned to the ED for confusion. Patient has underlying dementia but family felt the confusion was worse. CT of the brain showed no acute findings. TSH and B12 normal. She has not been eating much which could explain her more elevated Cr on admission. Add supplements. Assisatnce with feeding. Speech therapy to exclude dysphagia. Check brain MR. No issues with bedside swallow per ST. (2) Pulmonary embolism: Code(s): I26.99 - Other pulmonary embolism without acute cor pulmonale Status: Acute Assessment and Plan: CTA last admission showed small filling defect on right lower lobe segmental pulmonary artery suspicious for pulmonary emboli. Continue Xarelto. (3) Alzheimer's dementia without behavioral disturbance: Qualifiers: Alzheimer's disease onset: early-onset Qualified Code(s): G30.0 - Alzheimer's disease with early onset; F02.80 - Dementia in other diseases classified elsewhere without behavioral disturbance Code(s): G30.9 - Alzheimer's disease, unspecified; F02.80 - Dementia in other diseases classified elsewhere without behavioral disturbance Status: Acute Assessment and Plan: Stable. Continue home medications. Continue to monitor. (4) Benign essential hypertension: Code(s): I10 - Essential (primary) hypertension Status: Acute Assessment and Plan: Patient's blood pressure was reviewed on 03/13 Blood pressure remains better controlled. Will continue current medications. Will add low-dose Norvasc (5) MALIA on CPAP: Code(s): G47.33 - Obstructive sleep apnea (adult) (pediatric); Z99.89 - Dependence on other enabling machines and devices Status: Acute Assessment and Plan: Stable. Continue noninvasive ventilation at night and with naps. (6) Type 2 diabetes mellitus with hyperglycemia: Qualifiers: Diabetes mellitus residential insulin use: with residential use Qualified Code(s): E11.65 - Type 2 diabetes mellitus with hyperglycemia; Z79.4 - termination clerk (current) use of insulin Code(s): E11.65 - Type 2 diabetes mellitus with hyperglycemia Status: Acute Assessment and Plan: A1c 6.1. The patient's blood glucose was reviewed on 03/13 Glucose better which could be related to stopping the steroids Continue AccuCheks covering with sliding scale. Hypoglycemia protocol available as needed. Continue current medications for now. (7) Chronic kidney disease due to diabetes mellitus: Code(s): E11.22 - Type 2 diabetes mellitus with diabetic chronic kidney disease Status: Acute Assessment and Plan: Creatinine 1.8 on admission. This is above her baseline slightly. She was started on IV fluids with benefit. Cr back to baseline. Stop IV fluids and monitor for now. Patietn not eating much so probably getting dehydrated. Add supplements. Monitor Cr off IV fluids. Check renal US. (8) Pneumonia: Code(s): J18.9 - Pneumonia, unspecified organism Status: Acute Assessment and Plan: Stable. Chest CTA findings concerning for pneumonia. Could be related to COVID. Continue Augmentin to
--- NOTE | 2021-03-13 13:15 | PCSTNOTE ---
Please refer to the Bedside Swallow Evaluation in the EMR. Please note, silent aspiration cannot be ruled out at bedside.
[2021-03-13 14:18] LABS: Glucose Point of Care 220 mg/dl (65-105)
[2021-03-13 16:37] LABS: Glucose Point of Care 238 mg/dl (65-105)
[2021-03-13] MEDS: DONEPEZIL HCL 10 MG TABLET PO (20:22)
[2021-03-13] MEDS: MEMANTINE HCL XR 28 MG CAP PO (20:22)
[2021-03-13 21:09] LABS: Glucose Point of Care 203 mg/dl (65-105)
[2021-03-14] VITALS (7 sets, daily range): BP systolic 139–190; BP diastolic 61–110; PULSE 62–78; RESP 16–20; TEMP 35.5–36.6; O2SAT 93–96
[2021-03-14] MEDS: LEVOTHYROXINE SODIUM 25 MCG TABLET PO (05:25)
[2021-03-14 06:52] LABS: Anion Gap 8 mmol/L (8-16); Blood Urea Nitrogen 45 mg/dL (7-17); Calcium 9.3 mg/dL (8.4-10.2); Carbon Dioxide 22 mmol/L (22-30); Chloride 108 mmol/L (98-107); Estimated CRCL calculation 52 ml/min; Estimated Glomerular Filt Rate 38; Glucose 155 mg/dL (65-110); Sodium 138 mmol/L (137-145)
[2021-03-14 08:12] LABS: Glucose Point of Care 150 mg/dl (65-105)
[2021-03-14] MEDS: QUEtiapine FUMARATE 100 MG TABLET 200 MG PO ×2 (08:25→20:02)
[2021-03-14] MEDS: amLODIPine BESYLATE 2.5 MG TABLET PO (08:25)
[2021-03-14] MEDS: cloNIDine HCL 0.1 MG TABLET BY MOUTH ×2 (08:25→16:39)
[2021-03-14] MEDS: PREGABALIN (*CRX) 50 MG CAPSULE 200 MG PO ×3 (08:25→16:39)
[2021-03-14] MEDS: AMOXICILLIN/CLAVULANATE K 875-125 MG TAB 1 TABLET PO ×2 (08:26→20:02)
[2021-03-14] MEDS: EMPAGLIFLOZIN 25 MG TABLET PO (08:26)
[2021-03-14] MEDS: MULTIVITAMINS /C LUTEIN (CENTRUM SILVER) TABLET *BKC 1 TAB PO (08:26)
[2021-03-14] MEDS: lisinopriL 20 MG TABLET 40 MG PO (08:26)
[2021-03-14] MEDS: BENZTROPINE MESYLATE 0.5 MG TABLET PO ×3 (08:26→16:40)
[2021-03-14] MEDS: ATORVASTATIN 10 MG TABLET PO (08:26)
[2021-03-14] MEDS: RIVAROXABAN 15 MG TABLET PO ×2 (08:26→16:40)
[2021-03-14] MEDS: FERROUS SULFATE 324 MG TABLET PO (08:26)
[2021-03-14] MEDS: METOPROLOL TARTRATE 50 MG TAB PO ×2 (08:26→20:01)
[2021-03-14] MEDS: PARoxetine 20 MG TABLET PO (08:27)
[2021-03-14] MEDS: INSULIN ASPART (*BKC) 100 UNITS/ML SUB-Q ×3 (08:27→16:41)
[2021-03-14] MEDS: INSULIN GLARGINE (*BKC) 100 UNITS/ML 45 UNITS SUB-Q ×2 (08:28→16:41)
[2021-03-14] MEDS: ZINC OXIDE 20% OINT 30 GM TUBE 1 APPLIC TOPICAL ×2 (08:33→16:41)
[2021-03-14] MEDS: ACETAMINOPHEN 500 MG TABLET 1000 MG PO (08:35)
--- NOTE | 2021-03-14 11:36 | PM.IMPN ---
Progress Note: A&P Assessment and Plan (1) Altered mental status: Code(s): R41.82 - Altered mental status, unspecified Status: Acute Assessment and Plan: Patient was discharged home on 03/11 after being hospitalized for 5 days for weakness and decreased UOP Diagnosed with COVID the day of admission on 03/05. She Did not require O2 during her hospital course Echo showed EF of 65-70% with grade 1 diastolic dysfunction CTA of the chest showed small PE and she was started on appropriate anticoagulation; CT also showed possible pneumonia treated with antibiotics Patient has a chronic Vigil catheter that was changed out during that hospital course. Therapy worked with her. Blood in urine cultures were negative Patient was discharged home on 03/11/2021 A few hours later, patient returned to the ED for confusion Patient has underlying dementia but family felt the confusion was worse CT of the brain showed no acute findings TSH and B12 normal She has not been eating much which could explain her more elevated Cr on admission Add supplements. Assistance with feeding. Speech therapy-->No issues with bedside swallow MRI brain pending (2) Pulmonary embolism: Code(s): I26.99 - Other pulmonary embolism without acute cor pulmonale Status: Acute Assessment and Plan: CTA last admission showed small filling defect on right lower lobe segmental pulmonary artery suspicious for pulmonary emboli Continue Xarelto (3) Alzheimer's dementia without behavioral disturbance: Qualifiers: Alzheimer's disease onset: early-onset Qualified Code(s): G30.0 - Alzheimer's disease with early onset; F02.80 - Dementia in other diseases classified elsewhere without behavioral disturbance Code(s): G30.9 - Alzheimer's disease, unspecified; F02.80 - Dementia in other diseases classified elsewhere without behavioral disturbance Status: Acute Assessment and Plan: Stable Continue home medications Supportive care (4) Benign essential hypertension: Code(s): I10 - Essential (primary) hypertension Status: Acute Assessment and Plan: BP elected today Continue current medications. Low-dose Norvasc added 03/13 Hydralazine prn Monitor (5) MALIA on CPAP: Code(s): G47.33 - Obstructive sleep apnea (adult) (pediatric); Z99.89 - Dependence on other enabling machines and devices Status: Acute Assessment and Plan: Stable Continue noninvasive ventilation at night and with naps (6) Type 2 diabetes mellitus with hyperglycemia: Qualifiers: Diabetes mellitus mcfp insulin use: with roasterman use Qualified Code(s): E11.65 - Type 2 diabetes mellitus with hyperglycemia; Z79.4 - salvage determiner (current) use of insulin Code(s): E11.65 - Type 2 diabetes mellitus with hyperglycemia Status: Acute Assessment and Plan: A1c 6.1 BG 150s-230s Continue AccuCheks covering with sliding scale Hypoglycemia protocol available as needed Continue current medications for now (7) Chronic kidney disease due to diabetes mellitus: Code(s): E11.22 - Type 2 diabetes mellitus with diabetic chronic kidney disease Status: Acute Assessment and Plan: Creatinine 1.8 on admission. Cr 1.4 today. S/p IVF Renal US-->Small bilateral renal cysts. Otherwise normal kidneys with no hydronephrosis Avoid nephrotoxins Monitor (8) Pneumonia: Code(s): J18.9 - Pneumonia, unspecified organism Status: Acute Assessment and Plan: Stable Chest CTA findings concerning for pneumonia Could be related to COVID Continue Augmentin to complete a course (9) COVID-19: Code(s): U07.1 - COVID-19 Status: Acute Assessment and Plan: Not requiring oxygen As above (10) Vaginal pain: Code(s): R10.2 - Pelvic and perineal pain Status: Acute Assessment and Plan: Will check transvaginal US Additional Plan DVT Ppx: on Xarelto Cod
[2021-03-14 11:53] LABS: Glucose Point of Care 154 mg/dl (65-105)
[2021-03-14] MEDS: hydrALAZINE HCL 20 MG/ML VIAL 10 MG IV PUSH (12:21)
[2021-03-14 16:16] LABS: Glucose Point of Care 137 mg/dl (65-105)
[2021-03-14] MEDS: MEMANTINE HCL XR 28 MG CAP PO (20:01)
[2021-03-14] MEDS: DONEPEZIL HCL 10 MG TABLET PO (20:02)
[2021-03-14 20:59] LABS: Glucose Point of Care 108 mg/dl (65-105)
[2021-03-15] VITALS (7 sets, daily range): BP systolic 89–149; BP diastolic 45–75; PULSE 60–73; RESP 16–18; TEMP 35.1–36; O2SAT 9–95
[2021-03-15] MEDS: LEVOTHYROXINE SODIUM 25 MCG TABLET PO (05:08)
[2021-03-15 06:19] LABS: Hematocrit 33.4 % (37.0-47.0); Hemoglobin 10.4 g/dL (12.0-15.0); Mean Corpuscular HGB Conc 31.1 g/dl (32-36); Mean Corpuscular Hemoglobin 29.1 pg (26-34); Mean Corpuscular Volume 93.6 fl (80-100); Mean Platelet Volume 10.1 fl (7.4-10.4); Platelet Count Result 284 k/mm3 (150-375); Red Blood Count 3.57 M/mm3 (4.2-5.4); Red Cell Distribution Width 16.3 % (11.5-14.5); White Blood Count 5.9 K/mm3 (4.5-10.0)
[2021-03-15 06:47] LABS: Anion Gap 5 mmol/L (8-16); Blood Urea Nitrogen 47 mg/dL (7-17); Calcium 9.3 mg/dL (8.4-10.2); Carbon Dioxide 24 mmol/L (22-30); Chloride 109 mmol/L (98-107); Estimated CRCL calculation 52 ml/min; Estimated Glomerular Filt Rate 38; Glucose 106 mg/dL (65-110); Potassium 3.9 mmol/L (3.4-5.0); Sodium 138 mmol/L (137-145)
[2021-03-15 07:57] LABS: Glucose Point of Care 99 mg/dl (65-105)
[2021-03-15] MEDS: PREGABALIN (*CRX) 50 MG CAPSULE 200 MG PO ×3 (08:13→16:52)
[2021-03-15] MEDS: BENZTROPINE MESYLATE 0.5 MG TABLET PO ×3 (08:13→16:53)
[2021-03-15] MEDS: PARoxetine 20 MG TABLET PO (08:13)
[2021-03-15] MEDS: lisinopriL 20 MG TABLET 40 MG PO (08:13)
[2021-03-15] MEDS: cloNIDine HCL 0.1 MG TABLET BY MOUTH ×2 (08:13→16:53)
[2021-03-15] MEDS: FERROUS SULFATE 324 MG TABLET PO (08:13)
[2021-03-15] MEDS: RIVAROXABAN 15 MG TABLET PO ×2 (08:13→16:53)
[2021-03-15] MEDS: amLODIPine BESYLATE 2.5 MG TABLET PO (08:14)
[2021-03-15] MEDS: ATORVASTATIN 10 MG TABLET PO (08:14)
[2021-03-15] MEDS: METOPROLOL TARTRATE 50 MG TAB PO ×2 (08:14→20:26)
[2021-03-15] MEDS: MULTIVITAMINS /C LUTEIN (CENTRUM SILVER) TABLET *BKC 1 TAB PO (08:14)
[2021-03-15] MEDS: INSULIN GLARGINE (*BKC) 100 UNITS/ML 45 UNITS SUB-Q ×2 (08:14→16:53)
[2021-03-15] MEDS: ERGOCALCIFEROL 50,000 UNIT CAPSULE 50000 UNITS PO (08:14)
[2021-03-15] MEDS: EMPAGLIFLOZIN 25 MG TABLET PO (08:14)
[2021-03-15] MEDS: QUEtiapine FUMARATE 100 MG TABLET 200 MG PO ×2 (08:14→20:26)
[2021-03-15] MEDS: INSULIN ASPART (*BKC) 100 UNITS/ML SUB-Q ×3 (08:15→16:53)
[2021-03-15] MEDS: ZINC OXIDE 20% OINT 30 GM TUBE 1 APPLIC TOPICAL ×2 (08:15→17:14)
[2021-03-15 11:25] LABS: Glucose Point of Care 171 mg/dl (65-105)
--- NOTE | 2021-03-15 14:19 | PM.IMPN ---
Progress Note: A&P Assessment and Plan (1) Altered mental status: Code(s): R41.82 - Altered mental status, unspecified Status: Acute Assessment and Plan: Patient was discharged home on 03/11 after being hospitalized for 5 days for weakness and decreased UOP Diagnosed with COVID the day of admission on 03/05. She Did not require O2 during her hospital course Echo showed EF of 65-70% with grade 1 diastolic dysfunction CTA of the chest showed small PE and she was started on appropriate anticoagulation; CT also showed possible pneumonia treated with antibiotics Patient has a chronic Vigil catheter that was changed out during that hospital course. Therapy worked with her. Blood in urine cultures were negative Patient was discharged home on 03/11/2021 A few hours later, patient returned to the ED for confusion Patient has underlying dementia but family felt the confusion was worse CT of the brain showed no acute findings TSH and B12 normal She has not been eating much which could explain her more elevated Cr on admission Add supplements. Assistance with feeding. Speech therapy-->No issues with bedside swallow MRI brain pending 03/15/2021 interval history patient with dementia admitted with increased altered mental status, currently patient is working with occupational therapy and there is a concern patient is a difficulty finding words and to express herself, patient was seen by ST and discussed, ST will follow the patient and continue therapy, MRIs pending, COVID test is positive not requiring any oxygen, remains clinically stable has no new complaint. will continue PT OT ST and further recommendation to follow. (2) Pulmonary embolism: Code(s): I26.99 - Other pulmonary embolism without acute cor pulmonale Status: Acute Assessment and Plan: CTA last admission showed small filling defect on right lower lobe segmental pulmonary artery suspicious for pulmonary emboli Continue Xarelto (3) Alzheimer's dementia without behavioral disturbance: Qualifiers: Alzheimer's disease onset: early-onset Qualified Code(s): G30.0 - Alzheimer's disease with early onset; F02.80 - Dementia in other diseases classified elsewhere without behavioral disturbance Code(s): G30.9 - Alzheimer's disease, unspecified; F02.80 - Dementia in other diseases classified elsewhere without behavioral disturbance Status: Acute Assessment and Plan: Stable Continue home medications Supportive care (4) Benign essential hypertension: Code(s): I10 - Essential (primary) hypertension Status: Acute Assessment and Plan: BP elected today Continue current medications. Low-dose Norvasc added / Hydralazine prn Monitor (5) MALIA on CPAP: Code(s): G47.33 - Obstructive sleep apnea (adult) (pediatric); Z99.89 - Dependence on other enabling machines and devices Status: Acute Assessment and Plan: Stable Continue noninvasive ventilation at night and with naps (6) Type 2 diabetes mellitus with hyperglycemia: Qualifiers: Diabetes mellitus alf insulin use: with alf use Qualified Code(s): E11.65 - Type 2 diabetes mellitus with hyperglycemia; Z79.4 - long term care pharmacist (current) use of insulin Code(s): E11.65 - Type 2 diabetes mellitus with hyperglycemia Status: Acute Assessment and Plan: A1c 6.1 BG 150s-230s Continue AccuCheks covering with sliding scale Hypoglycemia protocol available as needed Continue current medications for now (7) Chronic kidney disease due to diabetes mellitus: Code(s): E11.22 - Type 2 diabetes mellitus with diabetic chronic kidney disease Status: Acute Assessment and Plan: Creatinine 1.8 on admission. Cr 1.4 today. S/p IVF Renal US-->Small bilateral renal cysts. Otherwise normal kidneys with no hydronephrosis Avoid nephrotoxins Monitor (8) Pneumonia: Code(s): J18.9 - Pneumonia, unspecified o
[2021-03-15 16:15] LABS: Glucose Point of Care 122 mg/dl (65-105)
[2021-03-15] MEDS: MEMANTINE HCL XR 28 MG CAP PO (20:26)
[2021-03-15] MEDS: DONEPEZIL HCL 10 MG TABLET PO (20:26)
[2021-03-15 20:43] LABS: Glucose Point of Care 131 mg/dl (65-105)
[2021-03-16] VITALS: BP 113/51; PULSE 74; RESP 18; TEMP 36.1; O2SAT 91
[2021-03-16 04:00] VITALS: BP 133/55; PULSE 77; RESP 18; TEMP 37.2; O2SAT 90
[2021-03-16] MEDS: LEVOTHYROXINE SODIUM 25 MCG TABLET PO (04:36)
[2021-03-16 07:01] LABS: Hematocrit 34.2 % (37.0-47.0); Hemoglobin 10.5 g/dL (12.0-15.0); Mean Corpuscular HGB Conc 30.7 g/dl (32-36); Mean Corpuscular Hemoglobin 29.1 pg (26-34); Mean Corpuscular Volume 94.7 fl (80-100); Platelet Count Result 315 k/mm3 (150-375); Red Blood Count 3.61 M/mm3 (4.2-5.4); Red Cell Distribution Width 16.7 % (11.5-14.5); White Blood Count 7.2 K/mm3 (4.5-10.0)
[2021-03-16 07:12] LABS: Anion Gap 9 mmol/L (8-16); Blood Urea Nitrogen 51 mg/dL (7-17); Calcium 9.3 mg/dL (8.4-10.2); Carbon Dioxide 23 mmol/L (22-30); Chloride 110 mmol/L (98-107); Estimated CRCL calculation 46 ml/min; Estimated Glomerular Filt Rate 32; Glucose 105 mg/dL (65-110); Potassium 4.5 mmol/L (3.4-5.0); Sodium 142 mmol/L (137-145)
[2021-03-16 08:00] VITALS: O2SAT 92
[2021-03-16 08:40] LABS: Glucose Point of Care 132 mg/dl (65-105)
[2021-03-16] MEDS: INSULIN ASPART (*BKC) 100 UNITS/ML SUB-Q (08:49)
[2021-03-16] MEDS: INSULIN GLARGINE (*BKC) 100 UNITS/ML 45 UNITS SUB-Q (08:50)
[2021-03-16] MEDS: QUEtiapine FUMARATE 100 MG TABLET 200 MG PO (09:24)
[2021-03-16] MEDS: amLODIPine BESYLATE 2.5 MG TABLET PO (09:25)
[2021-03-16] MEDS: MULTIVITAMINS /C LUTEIN (CENTRUM SILVER) TABLET *BKC 1 TAB PO (09:25)
[2021-03-16] MEDS: cloNIDine HCL 0.1 MG TABLET BY MOUTH (09:25)
[2021-03-16] MEDS: BENZTROPINE MESYLATE 0.5 MG TABLET PO ×2 (09:25→14:37)
[2021-03-16] MEDS: PARoxetine 20 MG TABLET PO (09:25)
[2021-03-16] MEDS: lisinopriL 20 MG TABLET 40 MG PO (09:25)
[2021-03-16 09:26] VITALS: PULSE 77
[2021-03-16] MEDS: FERROUS SULFATE 324 MG TABLET PO (09:26)
[2021-03-16] MEDS: PREGABALIN (*CRX) 50 MG CAPSULE 200 MG PO ×2 (09:26→14:37)
[2021-03-16] MEDS: METOPROLOL TARTRATE 50 MG TAB PO (09:26)
[2021-03-16] MEDS: EMPAGLIFLOZIN 25 MG TABLET PO (09:26)
[2021-03-16] MEDS: ZINC OXIDE 20% OINT 30 GM TUBE 1 APPLIC TOPICAL (09:27)
[2021-03-16] MEDS: RIVAROXABAN 15 MG TABLET PO (09:27)
[2021-03-16] MEDS: ATORVASTATIN 10 MG TABLET PO (09:27)
[2021-03-16 11:50] LABS: Glucose Point of Care 138 mg/dl (65-105)
[2021-03-16 14:00] VITALS: BP 98/51; PULSE 76; RESP 20; TEMP 36.8; O2SAT 99
--- NOTE | 2021-03-16 14:01 | PM.DS ---
DS: Admitting Diagnosis Discharge Date 03/16/2021 Admitting Diagnosis ALTERED MENTAL STATUS DS: Discharge Diagnosis Discharge Diagnosis (1) Altered mental status: Code(s): R41.82 - Altered mental status, unspecified Status: Acute Assessment and Plan: Patient was discharged home on 03/11 after being hospitalized for 5 days for weakness and decreased UOP Diagnosed with COVID the day of admission on 03/05. She Did not require O2 during her hospital course Echo showed EF of 65-70% with grade 1 diastolic dysfunction CTA of the chest showed small PE and she was started on appropriate anticoagulation; CT also showed possible pneumonia treated with antibiotics Patient has a chronic Vigil catheter that was changed out during that hospital course. Therapy worked with her. Blood in urine cultures were negative Patient was discharged home on 03/11/2021 A few hours later, patient returned to the ED for confusion Patient has underlying dementia but family felt the confusion was worse CT of the brain showed no acute findings TSH and B12 normal She has not been eating much which could explain her more elevated Cr on admission Add supplements. Assistance with feeding. Speech therapy-->No issues with bedside swallow MRI brain pending 03/15/2021 interval history patient with dementia admitted with increased altered mental status, currently patient is working with occupational therapy and there is a concern patient is a difficulty finding words and to express herself, patient was seen by ST and discussed, ST will follow the patient and continue therapy, MRIs pending, COVID test is positive not requiring any oxygen, remains clinically stable has no new complaint. will continue PT OT ST and further recommendation to follow. (2) Pulmonary embolism: Code(s): I26.99 - Other pulmonary embolism without acute cor pulmonale Status: Acute Assessment and Plan: CTA last admission showed small filling defect on right lower lobe segmental pulmonary artery suspicious for pulmonary emboli Continue Xarelto (3) Alzheimer's dementia without behavioral disturbance: Qualifiers: Alzheimer's disease onset: early-onset Qualified Code(s): G30.0 - Alzheimer's disease with early onset; F02.80 - Dementia in other diseases classified elsewhere without behavioral disturbance Code(s): G30.9 - Alzheimer's disease, unspecified; F02.80 - Dementia in other diseases classified elsewhere without behavioral disturbance Status: Acute Assessment and Plan: Stable Continue home medications Supportive care (4) Benign essential hypertension: Code(s): I10 - Essential (primary) hypertension Status: Acute Assessment and Plan: BP elected today Continue current medications. Low-dose Norvasc added 12/24 Hydralazine prn Monitor (5) MALIA on CPAP: Code(s): G47.33 - Obstructive sleep apnea (adult) (pediatric); Z99.89 - Dependence on other enabling machines and devices Status: Acute Assessment and Plan: Stable Continue noninvasive ventilation at night and with naps (6) Type 2 diabetes mellitus with hyperglycemia: Qualifiers: Diabetes mellitus assistant 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 insulin use: with fdc use Qualified Code(s): E11.65 - Type 2 diabetes mellitus with hyperglycemia; Z79.4 - detention (current) use of insulin Code(s): E11.65 - Type 2 diabetes mellitus with hyperglycemia Status: Acute Assessment and Plan: A1c 6.1 BG 150s-230s Continue AccuCheks covering with sliding scale Hypoglycemia protocol available as needed Continue current medications for now (7) Chronic kidney disease due to diabetes mellitus: Code(s): E11.22 - Type 2 diabetes mellitus with diabetic chronic kidney disease Status: Acute Assessment and Plan: Creatinine 1.8 on admission. Cr 1.4 today. S/p IVF Renal US-->Small bilateral renal cysts. Otherwise normal kidneys with no hydrone
[2021-03-16 17:27] LABS: Glucose Point of Care 111 mg/dl (65-105)
== END 2021-03-16 17:35 | disposition home health service (06) ==
LOC: ANHED 19:14 → ANH3MEDSUR 03-12 10:12
PROVIDERS: Nurse Practitioner Adult Health; Admitting Provider Internal Medicine; Emergency Provider Family Medicine; PCP Family Medicine; Visit Provider Family Medicine
DX: R41.82 Altered mental status, unspecified (principal); U07.1 COVID-19; I26.99 Other pulmonary embolism without acute cor pulmonale; R47.02 Dysphasia; G30.0 Alzheimer's disease with early onset; F02.80 Dementia in other diseases classified elsewhere, unspecified severity, without behavioral disturbance, psychotic disturbance, mood disturbance, and anxiety; I12.9 Hypertensive chronic kidney disease with stage 1 through stage 4 chronic kidney disease, or unspecified chronic kidney disease; I51.89 Other ill-defined heart diseases; R10.2 Pelvic and perineal pain; E11.22 Type 2 diabetes mellitus with diabetic chronic kidney disease; E11.42 Type 2 diabetes mellitus with diabetic polyneuropathy; E11.65 Type 2 diabetes mellitus with hyperglycemia; E66.01 Morbid (severe) obesity due to excess calories; D50.9 Iron deficiency anemia, unspecified; G47.33 Obstructive sleep apnea (adult) (pediatric); N18.9 Chronic kidney disease, unspecified; Z79.899 Other long term (current) drug therapy; Z68.41 Body mass index [BMI] 40.0-44.9, adult; Z79.01 Long term (current) use of anticoagulants; Z79.4 Long term (current) use of insulin
CPT/HCPCS: 36415; 70450; 70551; 74019; 76775; 76830; 76856; 80048; 80053; 82607; 82746; 82948; 83036; 85025; 85027; 92507; 92523; 92610; 93005; 96361; 96374; 97110; 97162; 97165; 99285; A9270; G0378; J0360; J1815; J7030; J8540

== ENCOUNTER 2021-03-25 12:55 | Outpatient (NON) | payer MEDICARE, OTHER, SELFPAY | END 2021-03-25 12:56 | disposition home or self-care (01) | PROVIDERS: PCP Family Medicine; Visit Provider Nurse Practitioner Adult Health | DX: R30.0 Dysuria (principal) | CPT/HCPCS: 87077; 87086; 87186 ==

== ENCOUNTER 2021-05-04 16:18 | Outpatient (NON) | payer MEDICARE, OTHER, SELFPAY | END 2021-05-04 16:19 | disposition home or self-care (01) | PROVIDERS: PCP Family Medicine | DX: N31.9 Neuromuscular dysfunction of bladder, unspecified (principal); E11.42 Type 2 diabetes mellitus with diabetic polyneuropathy; R33.9 Retention of urine, unspecified | CPT/HCPCS: 87086; 87147; 87181; 87186 ==

== ENCOUNTER 2021-07-23 17:19 | Outpatient (CLI) | payer MEDICARE, OTHER, SELFPAY ==
--- NOTE | ~2021-07-23 | XR_ITS ---
EXAMINATION: XR chest 2V DATE: 07/23/2021 17:42 INDICATION: Other specified respiratory disorders, cough TECHNIQUE: AP and lateral views of the chest are obtained. COMPARISON: 03/05/2021 FINDINGS: There are minimal airspace opacities of the left midlung zone. There is no pleural effusion or pneumothorax. The cardiomediastinal silhouette is normal. There is mild thoracic spondylosis. Ort hopedic stabilization hardware is noted in the right humerus. IMPRESSION: 1. Minimal airspace opacities of the left midlung zone, consistent with atelectasis versus pneumonia. Reviewed, dictated and finalized at location B. IMPRESSION: 1. Minimal airspace opacities of the left midlung zone, consistent with atelect asis versus pneumonia.
== END 2021-07-23 17:20 | disposition home or self-care (01) ==
LOC: ANHIMG 17:27
PROVIDERS: PCP Family Medicine; Visit Provider Family Medicine
DX: J98.8 Other specified respiratory disorders (principal); R91.8 Other nonspecific abnormal finding of lung field
CPT/HCPCS: 71046

== ENCOUNTER 2021-07-27 13:45 | Outpatient (NON) | payer MEDICARE, OTHER, SELFPAY | END 2021-07-27 13:46 | disposition home or self-care (01) | LOC: HOME HLTH 13:50 | PROVIDERS: PCP Family Medicine | DX: N31.9 Neuromuscular dysfunction of bladder, unspecified (principal); N39.0 Urinary tract infection, site not specified | CPT/HCPCS: 87077; 87086; 87186 ==

== ENCOUNTER 2021-08-19 20:02 | Emergency (ER) | payer MEDICARE, OTHER, SELFPAY ==
[2021-08-19 20:31] VITALS: BP 148/64; PULSE 70; RESP 18; TEMP 36.2; O2SAT 98
[2021-08-19 20:58] LABS: Appearance Urine Cloudy (Clear); Bilirubin Urine Negative (Negative); Color Urine Yellow (Yellow); Glucose Urine UA 2+ mg/dL (Negative); Ketones Urine Negative (Negative); Leukocyte Esterase Ur 1+ LEU/UL (Negative); Nitrate Urine Positive (Negative); Protein Urine Negative (Negative); Urobilinogen Urine 0.2 mg/dL (<2.0); pH Urine 5.5 (5.0-9.0)
[2021-08-19 20:59] LABS: Add Urine Microscopic? YES; Blood Urine Trace-Intact (Negative)
[2021-08-19 21:09] LABS: Bacteria Urine Trace /hpf; Budding Yeast Urine Present /hpf; Mucus Urine Heavy /lpf; RBC Urine 21-50 /hpf (0-2); Squamous Epithelial Cell Urine Rare /hpf (Few); WBC Clumps Urine Present /HPF; WBC Urine >75 /hpf
--- NOTE | 2021-08-19 22:38 | PC.NURSE ---
pt reprots chronic indweling villa x 4 moths. she reports this afternoon it quite draining. Pt states I had this happen before and it was clogged.
[2021-08-19 22:44] VITALS: BP 125/55; PULSE 76; RESP 16; TEMP 37; O2SAT 95
--- NOTE | 2021-08-19 22:44 | PC.NURSE ---
villa cath changed. Sediment noted at end of old villa
--- NOTE | 2021-08-19 23:08 | ED.GENADULT ---
HPI - General Adult General Chief complaint: Urogenital-Female Stated complaint: clogged indwelling catheter Time Seen by Provider: 08/19/21 22:09 History of Present Illness HPI narrative: Patient is a 66-year-old female who presents ER with lower abdominal discomfort. Ongoing throughout the day. Reports her Vigil catheter is not draining properly. It is currently placed due to a neurogenic bladder until she can get a ileoconduit procedure performed. No fevers chills or sweats. Reports her home health nurse took urine sample today and started her on some Bactrim. No fevers or chills or sweats. She would like her Vigil changed due to what she believes is obstruction. Related Data Home Medications Medication Instructions Recorded Confirmed levothyroxine 25 mcg capsule 25 mcg PO DAILY 07/27/19 07/02/21 quetiapine 200 mg tablet 200 mg PO BID 07/27/19 07/02/21 acetaminophen 500 mg tablet 1,000 mg PO BID PRN Pain 07/10/20 07/02/21 (Tylenol Extra Strength) lactobacillus combination no.9 4 4,000 mmu cells PO DAILY 07/10/20 07/02/21 billion cell capsule (Adult 50 Plus Probiotic) paroxetine HCl 20 mg tablet 20 mg PO DAILY 07/10/20 07/02/21 ferrous sulfate 325 mg (65 mg 325 mg PO DAILY 03/06/21 07/02/21 iron) tablet (Iron (ferrous sulfate)) multivit with minerals-iron 18 1 tablet PO DAILY 03/06/21 07/02/21 mg-folic ac 400 mcg-vit K 25 mcg tablet (Adults Multivitamin) clotrimazole-betamethasone 1 1 applic topical BID 07/02/21 07/02/21 %-0.05 % topical cream cyclobenzaprine 5 mg tablet 5 mg PO TID PRN 07/02/21 07/02/21 lactulose 20 gram/30 mL oral 10 g PO BID PRN Constipation 07/02/21 07/02/21 solution nystatin 100,000 unit/gram topical 1 applic topical BID 07/02/21 07/02/21 powder oxycodone 5 mg tablet 5 mg PO Q4H PRN 07/02/21 07/02/21 Allergies Allergy/AdvReac Type Severity Reaction Status Date / Time ciprofloxacin Allergy Mild Hives Verified 07/02/21 10:02 metronidazole Allergy Mild Hives Verified 07/02/21 10:02 divalproex sodium Allergy Unknown Unknown Verified 07/02/21 10:02 vancomycin Allergy Unknown Unknown Verified 07/02/21 10:02 Review of Systems Review of Systems: All systems reviewed & are unremarkable except as noted in HPI and below Constitutional: Constitutional: Denies chills, Denies fatigue and Denies fever(s) Gastrointestinal: Gastrointestinal: Reports abdominal pain, Denies nausea and Denies vomiting Genitourinary: Genitourinary: Denies dysuria and Denies pelvic pain Comments: Decreased urine output [facility] Past Medical History Medical History Abnormality of gait and mobility Benign essential HTN Benign essential hypertension Brain hypoxia Chronic kidney disease due to diabetes mellitus Diabetic neuropathy RAMAN (generalized anxiety disorder) MALIA on CPAP Type 2 diabetes mellitus with hyperglycemia Family History Family History Father Diabetes mellitus Hypertension Patient's father is , Onset Age: 75 Family history of renal failure Mother Family history of malignant neoplasm of stomach Other Family history of arthritis Social History Social History (Updated 07/02/21 @ 10:10 by Radha Lock) Social History: Smoking status: Never smoker Second hand tobacco smoke exposure: No Alcohol intake: never Substance use: current Substance use type: marijuana Other substance usage details: on occasion; afraid to ask doctor for a prescription, but it helps symptoms Gender identity (if verbalized by the patient): Female Sexual Orientation (if Verbalized by the Patient): Straight or Heterosexual Spiritual care concerns: No Exam Narrative: GENERAL: Well-appearing, morbidly obese, and in no acute distress. HEAD: Normocephalic, atraumatic. CHEST: Clear to auscultation. No respiratory distress. HEART: Regular rate and rhythm. Nor
--- NOTE | 2021-08-19 23:33 | PC.NURSE ---
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
[2021-08-19 23:41] VITALS: BP 105/77; PULSE 65; RESP 18; O2SAT 96
== END 2021-08-19 23:42 | disposition home or self-care (01) ==
PROVIDERS: Emergency Provider Emergency Medicine; PCP Family Medicine
DX: N31.9 Neuromuscular dysfunction of bladder, unspecified (principal); E11.22 Type 2 diabetes mellitus with diabetic chronic kidney disease; I12.9 Hypertensive chronic kidney disease with stage 1 through stage 4 chronic kidney disease, or unspecified chronic kidney disease; N18.9 Chronic kidney disease, unspecified; E11.40 Type 2 diabetes mellitus with diabetic neuropathy, unspecified; G47.33 Obstructive sleep apnea (adult) (pediatric); F41.1 Generalized anxiety disorder; Z79.899 Other long term (current) drug therapy; Z79.4 Long term (current) use of insulin; Z79.01 Long term (current) use of anticoagulants
CPT/HCPCS: 51702; 81001; 87077; 87086; 87186; 99283

== ENCOUNTER 2021-11-10 09:01 | Outpatient (CLI) | payer MEDICARE, OTHER, SELFPAY ==
--- NOTE | ~2021-11-10 | MM_ITS ---
EXAMINATION: MM screening ferdinand BI w joaquina HISTORY: Screening TECHNIQUE: Craniocaudal and mediolateral oblique 3-D tomosynthesis images were obtained and synthetic 2-D images were generated. CAD analysis was submitted and interpreted. COMPARISON: Comparison to multiple prior studies sequentially, with oldest reviewed study dated 12/14. BREAST PARENCHYMAL COMPOSITION: The breasts are almost entirely fatty. FINDINGS: There is no evidence of suspicious mass, calcification, or architectural distortion to sugg est malignancy in either breast. There has been no suspicious interval change. IMPRESSION: 1. No mammographic evidence of malignancy. 2. Recommend routine screening mammography in one year. BI-RADS Category 1: Negative Reviewed, dictated and finalized at location A.
== END 2021-11-10 09:02 | disposition home or self-care (01) ==
PROVIDERS: PCP Family Medicine; Visit Provider Family Medicine
DX: Z12.31 Encounter for screening mammogram for malignant neoplasm of breast (principal)
CPT/HCPCS: 77063; 77067

== ENCOUNTER 2022-01-01 11:58 | Outpatient (CLI) | payer MEDICARE, OTHER, SELFPAY ==
[2022-01-01 12:22] LABS: Basophils Percent Auto 0.4 % (0.2-1.2); Eosinophils Absolute Auto 0.3 K/mm3 (0-0.3); Eosinophils Percent Auto 6.5 % (0-4.4); Hematocrit 41.7 % (37.0-47.0); Hemoglobin 12.8 g/dL (12.0-15.0); Immature Granulocyte Absolute 0.03 K/mm3 (0.00-0.031); Immature Granulocyte Percent A 0.6 % (0-0.5); Lymphocytes Absolute Auto 0.98 K/mm3 (0.9-3.2); Lymphocytes Percent Auto 18.7 % (18.3-44.2); Mean Corpuscular HGB Conc 30.7 g/dl (32-36); Mean Corpuscular Hemoglobin 29.6 pg (26-34); Mean Corpuscular Volume 96.3 fl (80-100); Mean Platelet Volume 9.8 fl (7.4-10.4); Monocytes Absolute Auto 0.3 K/mm3 (0.1-0.6); Monocytes Percent Auto 6.1 % (2.6-8.5); Neutrophils Absolute Auto 3.6 K/mm3 (1.3-6.7); Neutrophils Percent Auto 67.7 % (45.5-73.1); Platelet Count Result 165 k/mm3 (150-375); Red Blood Count 4.33 M/mm3 (4.2-5.4); Red Cell Distribution Width 16.6 % (11.5-14.5); White Blood Count 5.2 K/mm3 (4.5-10.0)
[2022-01-01 12:31] LABS: Alanine Aminotransferase 24 U/L (6-35); Albumin Level 4.1 g/dL (3.5-5.1); Alkaline Phosphatase 129 U/L (38-126); Anion Gap 9 mmol/L (8-16); Aspartate Amino Transferase 25 U/L (14-36); Bilirubin,Total 0.2 mg/dL (0.2-1.3); Blood Urea Nitrogen 45 mg/dL (7-17); Calcium 9.8 mg/dL (8.4-10.2); Carbon Dioxide 24 mmol/L (22-30); Chloride 108 mmol/L (98-107); Estimated Glomerular Filt Rate 30; Glucose 109 mg/dL (65-110); Potassium 5.1 mmol/L (3.4-5.0); Sodium 141 mmol/L (137-145)
[2022-01-01 12:50] LABS: Free T4 Free Thyroxine 0.72 ng/mL (0.78-2.19)
[2022-01-01 13:02] LABS: Thyroid Stimulating Hormone 0.382 uIU/mL (0.465-4.680); Total Triiodothyronine (T3) 0.64 NG/ML (0.97-1.69)
== END 2022-01-01 11:59 | disposition home or self-care (01) ==
PROVIDERS: PCP Family Medicine; Visit Provider Family Medicine
DX: E03.9 Hypothyroidism, unspecified (principal); E11.9 Type 2 diabetes mellitus without complications; I10 Essential (primary) hypertension
CPT/HCPCS: 36415; 80053; 83036; 84439; 84443; 84480; 85025

== ENCOUNTER 2022-04-30 11:01 | Outpatient (CLI) | payer MEDICARE, OTHER, SELFPAY ==
[2022-04-30 12:04] LABS: Basophils Percent Auto 0.6 % (0.2-1.2); Eosinophils Absolute Auto 0.3 K/mm3 (0-0.3); Hematocrit 41.8 % (37.0-47.0); Hemoglobin 13.5 g/dL (12.0-15.0); Immature Granulocyte Absolute 0.03 K/mm3 (0.00-0.031); Immature Granulocyte Percent A 0.6 % (0-0.5); Lymphocytes Absolute Auto 1.13 K/mm3 (0.9-3.2); Lymphocytes Percent Auto 22.5 % (18.3-44.2); Mean Corpuscular HGB Conc 32.3 g/dl (32-36); Mean Corpuscular Hemoglobin 31.5 pg (26-34); Mean Corpuscular Volume 97.7 fl (80-100); Mean Platelet Volume 10.8 fl (7.4-10.4); Monocytes Absolute Auto 0.3 K/mm3 (0.1-0.6); Monocytes Percent Auto 6.2 % (2.6-8.5); Neutrophils Absolute Auto 3.2 K/mm3 (1.3-6.7); Neutrophils Percent Auto 64.1 % (45.5-73.1); Platelet Count Result 165 k/mm3 (150-375); Red Blood Count 4.28 M/mm3 (4.2-5.4); Red Cell Distribution Width 14.6 % (11.5-14.5)
[2022-04-30 12:19] LABS: Alanine Aminotransferase 21 U/L (6-35); Alkaline Phosphatase 132 U/L (38-126); Anion Gap 6 mmol/L (8-16); Aspartate Amino Transferase 20 U/L (14-36); Bilirubin,Total 0.4 mg/dL (0.2-1.3); Blood Urea Nitrogen 28 mg/dL (7-17); Calcium 9.3 mg/dL (8.4-10.2); Carbon Dioxide 29 mmol/L (22-30); Chloride 106 mmol/L (98-107); Cholesterol 216 mg/dL (0-200); Estimated Glomerular Filt Rate 41; Glucose 106 mg/dL (65-110); Potassium 4.3 mmol/L (3.4-5.0); Sodium 141 mmol/L (137-145)
[2022-04-30 12:27] LABS: LDL Cholesterol Direct 51 mg/dL
[2022-04-30 12:45] LABS: Total Triiodothyronine (T3) 0.79 NG/ML (0.97-1.69)
[2022-04-30 13:21] LABS: Triglycerides 628 mg/dL (<150)
== END 2022-04-30 11:02 | disposition home or self-care (01) ==
PROVIDERS: PCP Family Medicine; Visit Provider Family Medicine
DX: E78.2 Mixed hyperlipidemia (principal); E03.9 Hypothyroidism, unspecified; E66.2 Morbid (severe) obesity with alveolar hypoventilation; F33.1 Major depressive disorder, recurrent, moderate; G31.84 Mild cognitive impairment of uncertain or unknown etiology; I10 Essential (primary) hypertension; K59.01 Slow transit constipation; E11.42 Type 2 diabetes mellitus with diabetic polyneuropathy; E55.9 Vitamin D deficiency, unspecified
CPT/HCPCS: 36415; 80053; 80061; 83036; 84439; 84443; 84480; 85025

== ENCOUNTER 2022-06-06 14:29 | Emergency (ER) | payer MEDICARE, OTHER, SELFPAY ==
--- NOTE | ~2022-06-06 | CT_ITS ---
EXAMINATION: CT abdomen pelvis wo con DATE: 06/06/2022 16:18 INDICATION: Lower abdominal pain, cystitis TECHNIQUE: Computed tomography (CT) of the abdomen and pelvis was performed without intravenous contr ast. Automated exposure control and iterative reconstruction technique were employed. The dose-length product was 1458.88 mGy-cm. COMPARISON: 06/28/2016. FINDINGS: Lower thorax: Minimal coronary artery calcification. Liver: Simple left lobe cyst. Biliary/Gallbladder: Gallbladder is normal. No bile duct dilation. Pancreas: No mass or duct dilation. Spleen: Normal. Adrenals:No mass. Kidneys: Right upper pole hypodensities, too small to characterize but most likely represent cysts. E xophytic left midpole simple cyst. No obstructing calcification or hydronephrosis. GI tract: No small or large bowel dilation. Normal short appendix versus appendiceal stump. Diverticu losis without diverticulitis. Mesentery/Peritoneum: No ascites, mass, or free air. Retroperitoneum: No mass. Atherosclerotic abdominal aortic and/or arterial calcifications. Pelvis: Absent uterus. Urinary bladder decompressed by a Vigil catheter. Bladder wall thickening and inflammatory change. Soft Tissues: Subcutaneous induration in the left lower quadrant, likely injection sites. Small uncom plicated fat-containing umbilical hernia. Bones: No acute osseous finding. Uncomplicated appearing lumbar fusion hardware. IMPRESSION: Urinary bladder is decompressed by a Vigil catheter, which limits evaluation. Inflammatory changes coyne rrounding the decompressed bladder suggests cystitis. Otherwise, no acute abdominopelvic process dete cted. Reviewed, dictated and finalized at location K. IMPRESSION: Urinary bladder is decompressed by a Vigil catheter, which limits evaluation. I nflammatory changes surrounding the decompressed bladder suggests cystitis. Oth erwise, no acute abdominopelvic process detected.
[2022-06-06 14:34] VITALS: BP 162/82; PULSE 70; RESP 16; TEMP 36.8; O2SAT 100
--- NOTE | 2022-06-06 15:11 | ED.FEMALEGU ---
HPI - Female Genitourinary General Chief complaint: Urogenital-Female Stated complaint: bladder infection Time Seen by Provider: 06/06/22 14:57 Source: patient and family Mode of arrival: ambulatory Limitations: no limitations History of Present Illness HPI Narrative: 67 years old white female came to the emergency room from home complaining of burning urination through the Vigil catheter. History of indwelling Vigil catheter 7 months ago at [facility], and was told that she have delayed urinary bladder and she have to be on the Vigil catheter the rest of her life. Last catheter change was 1 week ago, patient went to urgent care 7 days ago because of lower abdominal pain and lower back pain and burning urethra, was diagnosed of urinary tract infection and discharged on unknown antibiotic, 5 days later the antibiotic changed to Cipro 250 twice a day for 3 days. Patient is not feeling better. She denies any fever, chills, nausea, vomiting, weakness, headache. Still complaining of lower abdomen and lower back with urethral burning sensation. Related Data Home Medications Medication Instructions Recorded Confirmed quetiapine 200 mg tablet 200 mg PO BID 07/27/19 04/30/22 acetaminophen 500 mg tablet 1,000 mg PO BID PRN Pain 07/10/20 04/30/22 (Tylenol Extra Strength) lactobacillus combination no.9 4 4,000 mmu cells PO DAILY 07/10/20 04/30/22 billion cell capsule (Adult 50 Plus Probiotic) multivit with minerals-iron 18 1 tablet PO DAILY 03/06/21 04/30/22 mg-folic ac 400 mcg-vit K 25 mcg tablet (Adults Multivitamin) aspirin 81 mg tablet,delayed 81 mg PO DAILY 10/30/21 04/30/22 release duloxetine 20 mg capsule,delayed 20 mg PO BID 04/30/22 04/30/22 release Allergies Allergy/AdvReac Type Severity Reaction Status Date / Time ciprofloxacin Allergy Mild Hives Verified 06/06/22 14:32 metronidazole Allergy Mild Hives Verified 06/06/22 14:32 divalproex sodium Allergy Unknown Unknown Verified 06/06/22 14:32 vancomycin Allergy Unknown Unknown Verified 06/06/22 14:32 Review of Systems Review of Systems: All systems reviewed & are unremarkable except as noted in HPI and below PMFSH Past Medical History Medical History Abnormality of gait and mobility Acute appendicitis with localized peritonitis Acute vulvitis Adverse effect of unspecified antipsychotics and neuroleptics, sequela Antipsychotic-induced akathisia Anxiety Arm pain, right Benign essential HTN Benign essential hypertension Benzodiazepine abuse, continuous Body mass index [BMI] 39.0-39.9, adult (11/12/16) Brain hypoxia Candidiasis, intertriginous Chronic kidney disease due to diabetes mellitus Chronic kidney disease, stage III (moderate) Chronic pain disorder Cognitive impairment Confusion Dependence on other enabling machines and devices Depressive type psychosis Diabetic nephropathy associated with type 2 diabetes mellitus Diabetic neuropathy Dietary counseling and surveillance (03/02/18) Dyskinesia, tardive RAMAN (generalized anxiety disorder) RAMAN (generalized anxiety disorder) Gait abnormality Gastroparesis Gout Iodine hypothyroidism Left lateral knee pain Lethargy assisted (current) use of insulin Mild cognitive impairment with memory loss Mixed hyperlipidemia Morbid obesity with BMI of 40.0-44.9, adult Obesity hypoventilation syndrome Opioid abuse with intoxication with complication MALIA on CPAP Polypharmacy Post-menopausal Severe recurrent major depressive disorder with psychotic features Type 2 diabetes mellitus with diabetic neuropathy, with long-term current use of insulin Type 2 diabetes mellitus with hyperglycemia Type 2 diabetes mellitus with stage 3 chronic kidney disease Unspecified acute appendicitis Urticaria due to drug allergy Vitamin D deficiency, unspecified Wrist pain, right Family History Family History Father Diab
[2022-06-06 16:08] LABS: Basophils Percent Auto 0.4 % (0.2-1.2); Eosinophils Absolute Auto 0.3 K/mm3 (0-0.3); Eosinophils Percent Auto 5.4 % (0-4.4); Hematocrit 37.6 % (37.0-47.0); Hemoglobin 11.8 g/dL (12.0-15.0); Immature Granulocyte Absolute 0.02 K/mm3 (0.00-0.031); Immature Granulocyte Percent A 0.4 % (0-0.5); Lymphocytes Absolute Auto 1.14 K/mm3 (0.9-3.2); Lymphocytes Percent Auto 20.6 % (18.3-44.2); Mean Corpuscular HGB Conc 31.4 g/dl (32-36); Mean Corpuscular Hemoglobin 31.8 pg (26-34); Mean Corpuscular Volume 101.3 fl (80-100); Mean Platelet Volume 10.6 fl (7.4-10.4); Monocytes Absolute Auto 0.4 K/mm3 (0.1-0.6); Monocytes Percent Auto 6.7 % (2.6-8.5); Neutrophils Absolute Auto 3.7 K/mm3 (1.3-6.7); Neutrophils Percent Auto 66.5 % (45.5-73.1); Platelet Count Result 153 k/mm3 (150-375); Red Blood Count 3.71 M/mm3 (4.2-5.4); White Blood Count 5.5 K/mm3 (4.5-10.0)
[2022-06-06 16:18] LABS: Alanine Aminotransferase 23 U/L (6-35); Albumin Level 3.8 g/dL (3.5-5.1); Alkaline Phosphatase 163 U/L (38-126); Anion Gap 5 mmol/L (8-16); Aspartate Amino Transferase 20 U/L (14-36); Bilirubin,Total 0.4 mg/dL (0.2-1.3); Blood Urea Nitrogen 47 mg/dL (7-17); Calcium 9.1 mg/dL (8.4-10.2); Carbon Dioxide 26 mmol/L (22-30); Chloride 111 mmol/L (98-107); Estimated CRCL calculation 46 ml/min; Estimated Glomerular Filt Rate 35; Glucose 198 mg/dL (65-110); Potassium 4.7 mmol/L (3.4-5.0); Sodium 142 mmol/L (137-145)
[2022-06-06 16:49] LABS: Appearance Urine Turbid (Clear); Bacteria Urine 2+ /hpf; Bilirubin Urine Negative (Negative); Blood Urine 3+ (Negative); Budding Yeast Urine Present /hpf; Color Urine Yellow (Yellow); Glucose Urine UA 3+ mg/dL (Negative); Ketones Urine Negative (Negative); Leukocyte Esterase Ur 2+ LEU/UL (Negative); Nitrate Urine Negative (Negative); Protein Urine 1+ mg/dL (Negative); RBC Urine >100 /hpf (0-2); Specific Grav Ur 1.023 (1.001-1.035); Squamous Epithelial Cell Urine Occasional /hpf (Few); Urobilinogen Urine 0.2 mg/dL (<2.0); WBC Urine >100 /hpf
[2022-06-06 16:50] LABS: Add Urine Microscopic? YES
[2022-06-06 17:31] VITALS: BP 147/72; PULSE 69; RESP 18; O2SAT 99
[2022-06-06 17:58] VITALS: BP 141/76; PULSE 70; RESP 18; O2SAT 100
== END 2022-06-06 18:04 | disposition home or self-care (01) ==
PROVIDERS: Emergency Provider Emergency Medicine; PCP Family Medicine
DX: T83.511A Infection and inflammatory reaction due to indwelling urethral catheter, initial encounter (principal); N39.0 Urinary tract infection, site not specified
CPT/HCPCS: 36415; 74176; 80053; 81001; 85025; 87086; 87088; 96365; 99284; J0696

== ENCOUNTER 2022-06-22 11:38 | Outpatient (CLI) | payer MEDICARE, OTHER, SELFPAY ==
--- NOTE | ~2022-06-22 | XR_ITS ---
EXAMINATION: XR chest 2V Exam Date/Time: 06/22/2022 12:05 CDT HISTORY: R60.9 - Edema, unspecified Comparison: 07/23/2021. RESULT: Lines, tubes, and devices: None. Lungs and pleura: Senescent changes. No focal consolidation, effusion, or pneumothorax. Cardiomediastinal silhouette: Stable. Other: No acute osseous or upper abdominal finding. IMPRESSION: No acute cardiopulmonary process. Reviewed, dictated and finalized at location K.
[2022-06-22 12:00] LABS: Basophils Percent Auto 0.7 % (0.2-1.2); Eosinophils Absolute Auto 0.3 K/mm3 (0-0.3); Eosinophils Percent Auto 5.7 % (0-4.4); Hematocrit 37.9 % (37.0-47.0); Immature Granulocyte Absolute 0.03 K/mm3 (0.00-0.031); Immature Granulocyte Percent A 0.5 % (0-0.5); Lymphocytes Absolute Auto 1.33 K/mm3 (0.9-3.2); Mean Corpuscular HGB Conc 31.7 g/dl (32-36); Mean Corpuscular Hemoglobin 31.7 pg (26-34); Mean Platelet Volume 10.4 fl (7.4-10.4); Monocytes Absolute Auto 0.4 K/mm3 (0.1-0.6); Monocytes Percent Auto 6.6 % (2.6-8.5); Neutrophils Absolute Auto 3.7 K/mm3 (1.3-6.7); Neutrophils Percent Auto 63.5 % (45.5-73.1); Platelet Count Result 175 k/mm3 (150-375); Red Blood Count 3.79 M/mm3 (4.2-5.4); Red Cell Distribution Width 15.8 % (11.5-14.5); White Blood Count 5.8 K/mm3 (4.5-10.0)
[2022-06-22 12:10] LABS: Alanine Aminotransferase 21 U/L (6-35); Albumin Level 3.8 g/dL (3.5-5.1); Alkaline Phosphatase 114 U/L (38-126); Anion Gap 9 mmol/L (8-16); Aspartate Amino Transferase 20 U/L (14-36); Bilirubin,Total 0.4 mg/dL (0.2-1.3); Blood Urea Nitrogen 39 mg/dL (7-17); Calcium 9.6 mg/dL (8.4-10.2); Carbon Dioxide 23 mmol/L (22-30); Chloride 109 mmol/L (98-107); Estimated Glomerular Filt Rate 41; Glucose 121 mg/dL (65-110); Potassium 4.3 mmol/L (3.4-5.0); Sodium 141 mmol/L (137-145)
[2022-06-22 12:41] LABS: Thyroid Stimulating Hormone 0.199 uIU/mL (0.465-4.680); Total Triiodothyronine (T3) 0.62 NG/ML (0.97-1.69)
[2022-06-22 13:10] LABS: Free T4 Free Thyroxine 0.58 ng/mL (0.78-2.19)
[2022-06-26 16:01] LABS: Vitamin D 1,25 (OH)2 Total 15 pg/mL (18-72); Vitamin D2 1,25 (OH)2 <8 pg/mL; Vitamin D3 1,25 (OH)2 15 pg/mL
== END 2022-06-22 11:39 | disposition home or self-care (01) ==
PROVIDERS: PCP Family Medicine; Visit Provider Family Medicine
DX: D64.9 Anemia, unspecified (principal); R60.9 Edema, unspecified; E55.9 Vitamin D deficiency, unspecified; E03.9 Hypothyroidism, unspecified; R74.8 Abnormal levels of other serum enzymes
CPT/HCPCS: 36415; 71046; 80053; 82607; 82652; 84439; 84443; 84480; 85025

== ENCOUNTER 2022-08-26 07:35 | Outpatient (CLI) | payer MEDICARE, OTHER, SELFPAY ==
[2022-08-26 08:35] LABS: Iron 68 ug/dL (37-170)
[2022-08-26 08:45] LABS: Percent Iron Saturation 26 % (20-50)
== END 2022-08-26 07:36 | disposition home or self-care (01) ==
LOC: ANHLAB 07:37
PROVIDERS: PCP Family Medicine; Visit Provider Family Medicine
DX: D64.9 Anemia, unspecified (principal); E03.9 Hypothyroidism, unspecified; R74.8 Abnormal levels of other serum enzymes
CPT/HCPCS: 36415; 83540; 83550

== ENCOUNTER 2022-09-17 11:45 | Outpatient (CLI) | payer MEDICARE, OTHER, SELFPAY ==
[2022-09-17 12:21] LABS: Hemoglobin A1C 6.2 % (<5.7)
== END 2022-09-17 11:46 | disposition home or self-care (01) ==
LOC: ANHLAB 11:47
PROVIDERS: PCP Family Medicine; Visit Provider Family Medicine
DX: E11.9 Type 2 diabetes mellitus without complications (principal)
CPT/HCPCS: 36415; 83036

== ENCOUNTER 2022-10-18 10:14 | Outpatient (CLI) | payer MEDICARE, OTHER, SELFPAY ==
[2022-10-18 11:06] LABS: Alanine Aminotransferase 28 U/L (6-35); Albumin Level 4.1 g/dL (3.5-5.1); Alkaline Phosphatase 101 U/L (38-126); Anion Gap 4 mmol/L (8-16); Aspartate Amino Transferase 26 U/L (14-36); Bilirubin,Total 0.3 mg/dL (0.2-1.3); Blood Urea Nitrogen 25 mg/dL (7-17); Calcium 9.5 mg/dL (8.4-10.2); Carbon Dioxide 29 mmol/L (22-30); Chloride 104 mmol/L (98-107); Estimated Glomerular Filt Rate 49; Glucose 136 mg/dL (65-110); Potassium 4.3 mmol/L (3.4-5.0); Sodium 137 mmol/L (137-145)
[2022-10-18 11:32] LABS: Free T4 Free Thyroxine 0.78 ng/mL (0.78-2.19)
[2022-10-21 04:51] LABS: Triiodothyronine T3 Free 2.6 pg/mL (2.3-4.2)
== END 2022-10-18 10:15 | disposition home or self-care (01) ==
LOC: ANHLAB 10:18
PROVIDERS: PCP Family Medicine; Visit Provider Physician Assistant
DX: E03.9 Hypothyroidism, unspecified (principal); E07.9 Disorder of thyroid, unspecified; E11.620 Type 2 diabetes mellitus with diabetic dermatitis; E11.65 Type 2 diabetes mellitus with hyperglycemia; Z79.4 Long term (current) use of insulin
CPT/HCPCS: 36415; 80053; 84439; 84443; 84481

== ENCOUNTER 2023-01-31 08:08 | Outpatient (CLI) | payer MEDICARE, OTHER, SELFPAY ==
[2023-01-31 08:51] LABS: Basophils Percent Auto 0.4 % (0.2-1.2); Eosinophils Absolute Auto 0.2 K/mm3 (0-0.3); Eosinophils Percent Auto 3.7 % (0-4.4); Hematocrit 40.4 % (37.0-47.0); Hemoglobin 12.3 g/dL (12.0-15.0); Immature Granulocyte Absolute 0.03 K/mm3 (0.00-0.031); Immature Granulocyte Percent A 0.7 % (0-0.5); Lymphocytes Absolute Auto 1.07 K/mm3 (0.9-3.2); Lymphocytes Percent Auto 23.2 % (18.3-44.2); Mean Corpuscular HGB Conc 30.4 g/dl (32-36); Mean Corpuscular Hemoglobin 29.9 pg (26-34); Mean Corpuscular Volume 98.1 fl (80-100); Mean Platelet Volume 10.6 fl (7.4-10.4); Monocytes Absolute Auto 0.3 K/mm3 (0.1-0.6); Monocytes Percent Auto 7.4 % (2.6-8.5); Neutrophils Percent Auto 64.6 % (45.5-73.1); Platelet Count Result 157 k/mm3 (150-375); Red Blood Count 4.12 M/mm3 (4.2-5.4); Red Cell Distribution Width 14.7 % (11.5-14.5); White Blood Count 4.6 K/mm3 (4.5-10.0)
[2023-01-31 09:04] LABS: Anion Gap 12 mmol/L (8-16); Blood Urea Nitrogen 42 mg/dL (7-17); Calcium 9.6 mg/dL (8.4-10.2); Carbon Dioxide 25 mmol/L (22-30); Chloride 108 mmol/L (98-107); Estimated Glomerular Filt Rate 37; Glucose 110 mg/dL (65-110); Phosphorus 3.7 mg/dL (2.5-4.5); Potassium 4.6 mmol/L (3.4-5.0); Sodium 145 mmol/L (137-145)
[2023-01-31 09:05] LABS: Iron 66 ug/dL (37-170)
[2023-01-31 09:15] LABS: Percent Iron Saturation 29 % (20-50)
[2023-01-31 10:27] LABS: Creatinine Urine 94.4 mg/dL; Total Protein Urine Random 40 mg/dL; Ur Ttl Prot Creatinine Ratio 0.42 mg/mg (0-0.20)
[2023-01-31 10:28] LABS: MALB Creatinine Ratio 147.2 mg/g (0-30)
[2023-01-31 10:36] LABS: Parathyroid Intact 18.3 pg/mL (7.5-53.5)
== END 2023-01-31 08:09 | disposition home or self-care (01) ==
PROVIDERS: PCP Family Medicine
DX: I12.9 Hypertensive chronic kidney disease with stage 1 through stage 4 chronic kidney disease, or unspecified chronic kidney disease (principal); N18.31 Chronic kidney disease, stage 3a
CPT/HCPCS: 36415; 80069; 82043; 82570; 83540; 83550; 83970; 84156; 85025

== ENCOUNTER 2023-05-18 09:33 | Inpatient (IN) | payer MEDICARE, OTHER, SELFPAY ==
[2023-05-18] VITALS (16 sets, daily range): BP systolic 132–171; BP diastolic 50–113; PULSE 83–100; RESP 17–28; TEMP 36.8–38.2; O2SAT 87–98
--- NOTE | ~2023-05-18 | US_ITS ---
EXAMINATION: US venous doppler [facility] DATE: 05/19/2023 17:16 INDICATION: Lower limb swelling TECHNIQUE: Jones scale images without and with compression and Doppler images of the bilateral lower e xtremity veins were obtained. COMPARISON: None FINDINGS: There is limited evaluation of the right lower extremity due to body habitus. The right posterior tib ial and peroneal veins are patent. The right common femoral vein, profunda femoral vein, femoral vein , popliteal vein, and greater saphenous vein are not evaluated. The left common femoral vein, profunda femoral vein, femoral vein, popliteal vein, peroneal trunk, po sterior tibial veins, and greater saphenous vein are patent. IMPRESSION: 1. The visualized bilateral lower extremity veins are patent. The right common femoral vein, profunda femoral vein, femoral vein, popliteal vein, and greater saphenous vein are not evaluated due to body habitus. Reviewed, dictated and finalized at location F. DRIVER OPERATOR BARGE MOUNTED
--- NOTE | ~2023-05-18 | CT_ITS ---
EXAMINATION: CTA chest PE abdomen pel DATE: 05/24/2023 10:54 INDICATION: Dyspnea. TECHNIQUE: Computed tomography angiography (CTA) of the chest was performed with 100 mL Omnipaque-350 intravenous contrast timed to evaluate the pulmonary arteries. Coronal maximum intensity projection 3D-reconstructions were created by the technologist. Computed tomography (CT) of the abdomen and pelv is was performed with intravenous contrast. Automated exposure control and iterative reconstruction t echnique were employed. The dose-length product was 920.48 mGy-cm. COMPARISON: CT abdomen and pelvis 06/06/2022 FINDINGS: CTA chest: The lungs demonstrate mild atelectasis. There is a trace left pleural effusion. Cardiomega ly is noted. No pericardial effusion. There is no pulmonary embolus. There is severe cervical spondyl osis and moderate thoracic spondylosis thoracic spondylosis. CT abdomen and pelvis: There is a 17 mm cyst in the liver. There are gallstones in the gallbladder, w hich is distended. The spleen, pancreas, and adrenal glands are normal. There is cortical thinning of the kidneys. There are cysts in the kidneys measuring up to 16 mm on the left. There are no dilated loops of bowel. There is diastasis of the rectus abdominis muscles. The appendix is normal. There are no pathologically enlarged lymph nodes. There is no free intraperitoneal fluid. There is severe righ t hip osteoarthritis and moderate left hip osteoarthritis. There is severe lumbar spondylosis. There are changes of anterior and posterior fusion procedures from L4 to S1. IMPRESSION: 1. No pulmonary embolus. Sensitivity is mildly decreased by motion artifact. 2. Cholelithiasis. Gallbladder distention may be secondary to fasting or acute cholecystitis. Gallbla dder with physical exam. Reviewed, dictated and finalized at location E. OYMENT EDUCATIONAL COORD IMPRESSION: 1. No pulmonary embolus. Sensitivity is mildly decreased by motion artifact. 2. Cholelithiasis. Gallbladder distention may be secondary to fasting or acute cholecystitis. Gallbladder with physical exam.
--- NOTE | ~2023-05-18 | CT_ITS ---
EXAMINATION: CT brain wo con DATE: 05/18/2023 10:41 INDICATION: Head injury. Confusion. TECHNIQUE: Computed tomography (CT) of the head was performed without intravenous contrast. The mA wa s adjusted according to patient size. Iterative reconstruction technique was employed. The dose-lengt h product was 681.00 mGy-cm. COMPARISON: Head CT 03/11/2021, brain MRI 03/15/2021 FINDINGS: There is a 1.7 x 0.8 cm hyperdense extra-axial mass in left cerebellopontine angle, consist ent with a meningioma. There is no acute ischemic infarct or intracranial hemorrhage. The ventricles are normal in size. There is mild mucosal thickening in the paranasal sinuses. There are likely bourne es of ocular lens replacement surgeries. The mastoid air cells are normal. IMPRESSION: 1. Stable 1.7 cm meningioma in left cerebellopontine angle. Reviewed, dictated and finalized at location A. NER HAND
--- NOTE | ~2023-05-18 | XR_ITS ---
EXAMINATION: XR tibia fibula RT 2V, XR knee RT 3V DATE: 05/18/2023 10:51 INDICATION: Right lower leg injury with large contusion post fall TECHNIQUE: 1. Anteroposterior, 2 oblique and crosstable lateral views of the right knee were obtained 2. AP and lateral views of the right tibia and fibula were obtained on overlapping proximal and dista l images. COMPARISON: None. FINDINGS: Old fractures of the distal right tibia and fibula which have healed in near-anatomic alignment. The fibular fracture is healed with a lateral plate and screws including 3 screws spanning the syndesmosi s into the distal tibial metaphysis. The medial malleolar fractures fixed with a single screw. Additi onal metallic foreign body, possibly a drill bit fragment in the distal metadiaphyseal region of the right tibia. No other acute fractures identified. Normal alignment with mild tricompartmental osteoar thritis at the right knee. No right knee joint effusion. There is additional mild polyarticular osteo arthritis at the right ankle and visualized foot. No ankle joint effusion. There is focal soft tissue swelling anterior to the proximal right tibia. IMPRESSION: 1. Old internally fixed fracture of the distal right tibia and fibula chip yielding near-anatomic ali gnment. No acute osseous abnormality at the right knee or lower leg. 2. Mild polyarticular osteoarthritis at the right knee, ankle and visualized foot. Reviewed, dictated and finalized at location B. OUT CLERK IMPRESSION: 1. Old internally fixed fracture of the distal right tibia and fibula chip aissatou vaughan near-anatomic alignment. No acute osseous abnormality at the right knee or lower leg. 2. Mild polyarticular osteoarthritis at the right knee, ankle and visualized fo ot.
--- NOTE | ~2023-05-18 | XR_ITS ---
EXAMINATION: XR chest 1V DATE: 05/18/2023 10:51 INDICATION: Shortness of breath. Fall. TECHNIQUE: AP view of the chest was obtained. COMPARISON: 06/22/2022 FINDINGS: There is perihilar predominant bronchial wall thickening. No focal airspace opacities, pleural effusi on or pneumothorax. The cardiomediastinal silhouette is normal. Partially visualized antegrade intram edullary ravindra and interlocking screw fixation at the proximal right humerus. Moderate to severe thorac olumbar spondylosis. IMPRESSION: 1. Perihilar bronchial wall thickening without evident airspace opacities which could be due to bronc hitis, reactive airway disease/asthma or mild pulmonary edema. Reviewed, dictated and finalized at location B. O OPERATIONS AGENT IMPRESSION: 1. Perihilar bronchial wall thickening without evident airspace opacities which could be due to bronchitis, reactive airway disease/asthma or mild pulmonary e alex.
--- NOTE | ~2023-05-18 | US_ITS ---
EXAMINATION: US right upper quadrant DATE: 05/24/2023 14:19 INDICATION: Abdominal pain. Gallbladder distention. TECHNIQUE: Multiple grayscale and Doppler ultrasound images of the abdomen were obtained. COMPARISON: CT abdomen and pelvis 05/24/23 FINDINGS: The visualized portions of the head, body, and tail of the pancreas are normal. The liver i s normal without focal lesion. There is normal flow in main portal vein. The gallbladder is distended . No gallstones or gallbladder wall thickening. There was no sonographic Herman sign. The common duct is normal and measures 6 mm. IMPRESSION: 1. Gallbladder distention, likely secondary to fasting. Reviewed, dictated and finalized at location E. ER SKATE ASSEMBLER
--- NOTE | 2023-05-18 09:57 | ECG_ITS ---
Measurements Intervals [place] Rate: 95 P: 38 MA: 177 QRS: -5 QRSD: 110 T: 23 QT: 344 QTc: 433 Interpretive Statements SINUS RHYTHM LOW QRS VOLTAGE IN PRECORDIAL LEADS [QRS DEFLECTION < 1.0 mV IN CHEST LEADS] COMPARED TO ECG 03/11/2021 17:21:12 NO SIGNIFICANT CHANGES Electronically Signed On 05-18-2023 16:37:44 NON GARMENT SEWING MACHINE OPERATOR by Laura Martin M.D.
[2023-05-18 10:18] LABS: Alveolar/Arterial O2 Gradient 134.1 mmHg; Base Excess ABG -2.2 mEq/l (+/-2.0); Carboxyhemoglobin 0.9 % THb (0-2.0); Fractional Inspired Oxygen 36 %; HCO3 ABG 23.1 mEq/l (22.0-26.0); Methemoglobin ABG 0.1 %THb (0-1.5); Oxygen Content ABG 14.8 %vol (16.0-22.0); Oxygen Saturation ABG 94.4 % (95.0-100.0); Oxyhemoglobin 91.9 % THb (90.0-100.0); PCO2 ABG 41.9 mmHg (35.0-45.0); PO2 FiO2 Ratio Arterial Blood 2.06 %; Reduced Hemoglobin 7.1 %THb (0-5.0); Total Hemoglobin 11.4 g/dL (12.0-18.0)
[2023-05-18 10:20] LABS: Device NASAL CANNULA; Site Drawn RIGHT RADIAL
[2023-05-18 10:43] LABS: Basophils Percent Auto 0.1 % (0.2-1.2); Hematocrit 32.9 % (37.0-47.0); Hemoglobin 10.3 g/dL (12.0-15.0); Immature Granulocyte Absolute 0.03 K/mm3 (0.00-0.031); Immature Granulocyte Percent A 0.4 % (0-0.5); Lymphocytes Absolute Auto 0.56 K/mm3 (0.9-3.2); Lymphocytes Percent Auto 7.7 % (18.3-44.2); Mean Corpuscular HGB Conc 31.3 g/dl (32-36); Mean Corpuscular Hemoglobin 30.1 pg (26-34); Mean Corpuscular Volume 96.2 fl (80-100); Mean Platelet Volume 11.6 fl (7.4-10.4); Monocytes Absolute Auto 0.4 K/mm3 (0.1-0.6); Monocytes Percent Auto 5.4 % (2.6-8.5); Neutrophils Absolute Auto 6.3 K/mm3 (1.3-6.7); Neutrophils Percent Auto 86.4 % (45.5-73.1); Platelet Count Result 139 k/mm3 (150-375); Red Blood Count 3.42 M/mm3 (4.2-5.4); Red Cell Distribution Width 15.6 % (11.5-14.5); White Blood Count 7.3 K/mm3 (4.5-10.0)
[2023-05-18 10:59] LABS: Alanine Aminotransferase 26 U/L (6-35); Albumin Level 3.6 g/dL (3.5-5.1); Alkaline Phosphatase 84 U/L (38-126); Anion Gap 6 mmol/L (8-16); Aspartate Amino Transferase 33 U/L (14-36); Bilirubin,Total 0.4 mg/dL (0.2-1.3); Blood Urea Nitrogen 37 mg/dL (7-17); Calcium 8.8 mg/dL (8.4-10.2); Carbon Dioxide 24 mmol/L (22-30); Chloride 104 mmol/L (98-107); Estimated CRCL calculation 45 ml/min; Estimated Glomerular Filt Rate 34; Glucose 383 mg/dL (65-110); INR 1.3; Lactic Acid Reflex 2.2 mmol/L (0.7-2.0); Prothrombin Time 16.3 Seconds (11.1-14.7); Sodium 134 mmol/L (137-145)
[2023-05-18 11:00] LABS: Partial Thromboplastin Time 44.7 SECONDS (22.3-36.8)
[2023-05-18 12:00] LABS: Appearance Urine Cloudy (Clear); Bacteria Urine 4+ /hpf; Bilirubin Urine Negative (Negative); Blood Urine 2+ (Negative); Budding Yeast Urine Present /hpf; Color Urine Yellow (Yellow); Glucose Urine UA 1+ mg/dL (Negative); Ketones Urine Negative (Negative); Leukocyte Esterase Ur Trace LEU/UL (Negative); Nitrate Urine Positive (Negative); Protein Urine 2+ mg/dL (Negative); Squamous Epithelial Cell Urine None seen /hpf (Few); Urobilinogen Urine 0.2 mg/dL (<2.0); WBC Urine 21-50 /hpf
[2023-05-18 12:03] LABS: Add Urine Microscopic? YES
--- NOTE | 2023-05-18 12:30 | ED.FALL ---
HPI - Fall General Chief Complaint: Fall Stated Complaint: fall 2 days ago & cough Time Seen by Provider: 05/18/23 09:36 History of Present Illness HPI Narrative: patient is a 68-year-old female with history of dementia who presents ER with increased confusion and falls. She was sent in from home. Patient reports that though today she was ambulating with her walker from the bathroom when she lost her balance falling into the walker. She denies hitting her head or losing consciousness. She is technically orient times for but will then have difficulty providing additional history. Patient has a chronic indwelling Vigil catheter due to neurogenic bladder pain patient found to be newly hypoxic and is requiring 4 L by nasal cannula. She has new cough according to family who relayed this information to EMS. No reports of fever. Related Data Home Medications Medication Instructions Recorded Confirmed quetiapine 200 mg tablet 200 mg PO BID 07/27/19 05/18/23 acetaminophen 500 mg tablet 1,000 mg PO BID Pain 07/10/20 05/18/23 (Tylenol Extra Strength) multivit with minerals-iron 18 1 tablet PO DAILY 03/06/21 05/18/23 mg-folic ac 400 mcg-vit K 25 mcg tablet (Adults Multivitamin) aspirin 81 mg tablet,delayed 81 mg PO BID 10/30/21 05/18/23 release cephalexin 250 mg capsule 250 mg PO HS 08/02/22 05/18/23 apixaban 2.5 mg tablet (Eliquis) 2.5 mg PO DAILY 05/18/23 05/18/23 artificial tears solution eye drops 1 drp ophthalmic (eye) PRN PRN Dry 05/18/23 05/18/23 Eye(S) cholecalciferol (vitamin D3) 1,250 1,250 mcg PO WEEKLY 05/18/23 05/18/23 mcg (50,000 unit) tablet clonidine HCl 0.1 mg tablet 0.1 mg PO TID 05/18/23 05/18/23 clotrimazole-betamethasone 1 1 applic topical BID 05/18/23 05/18/23 %-0.05 % topical cream dextrin 3 gram/4 gram oral powder 2 tsp PO TID 05/18/23 05/18/23 (Clear Fiber) duloxetine 30 mg capsule,delayed 30 mg PO BID 05/18/23 05/18/23 release insulin glargine 100 unit/mL (3 40 unit subcut BID 05/18/23 05/18/23 mL) subcutaneous pen (Basaglar KwikPen U-100 Insulin) lactobacillus combination no.8 3 See Rx Instructions .Route .COMPLEX 05/18/23 05/18/23 billion cell capsule lactulose 10 gram/15 mL oral 20 g PO TID 05/18/23 05/18/23 solution linaclotide 290 mcg capsule 290 mcg PO DAILY 05/18/23 05/18/23 (Linzess) lisinopril 20 mg tablet 20 mg PO DAILY 05/18/23 05/18/23 memantine ER 28 mg-donepezil 10 mg 1 cap PO HS 05/18/23 05/18/23 capsule sprinkle,ext.release 24 hr (Namzaric) terbinafine HCl 250 mg tablet 250 mg PO DAILY 05/18/23 05/18/23 Allergies Allergy/AdvReac Type Severity Reaction Status Date / Time ciprofloxacin Allergy Mild Hives Verified 05/18/23 15:48 metronidazole Allergy Mild Hives Verified 05/18/23 15:48 divalproex sodium Allergy Unknown Unknown Verified 05/18/23 15:48 vancomycin Allergy Unknown Unknown Verified 05/18/23 15:48 Review of Systems Review of Systems: ROS unobtainable: Yes unobtainable due to mental status PMFSH Past Medical History Medical History Abnormality of gait and mobility Acute appendicitis with localized peritonitis Acute vulvitis Adverse effect of unspecified antipsychotics and neuroleptics, sequela Antipsychotic-induced akathisia Anxiety Arm pain, right Benign essential HTN Benign essential hypertension Benzodiazepine abuse, continuous Body mass index [BMI] 39.0-39.9, adult (11/12/16) Brain hypoxia Candidiasis, intertriginous Chronic kidney disease due to diabetes mellitus Chronic kidney disease, stage III (moderate) Chronic pain disorder Cognitive impairment Confusion Dependence on other enabling machines and devices Depressive type psychosis Diabetic nephropathy associated with type 2 diabetes mellitus Diabetic neuropathy Dietary counseling and surveillance (03/02/18) Dyskinesia, tardive RAMAN (generalized anxiety disorder) RAMAN (generalized anxiety disorder) Gait abnormality G
[2023-05-18 12:53] LABS: NT Pro B Type Natriuretic Pept 512 pg/mL (19.9-100)
[2023-05-18] MEDS: AZITHROMYCIN 500 MG/NS 250 ML 500 MG/250 ML BAG 250 MG IVPB (13:26)
[2023-05-18 13:40] LABS: Reflex Lactic Acid Yes or No Add Lactic
[2023-05-18 13:52] LABS: Influenza A QL RT-PCR Positive (Negative); Influenza B QL RT-PCR Negative (Negative); RSV RNA, RT-PCR Negative (Negative); SARS-CoV-2 RNA PCR Negative (Negative)
--- NOTE | 2023-05-18 13:53 | PM.IMHP ---
H&P: HPI History of Present Illness Date/Time: 05/18/23 13:53 Chief Complaint: fall, confusion Narrative: This is a 68-year-old female with a significant past medical history of anxiety, hypertension, type 2 diabetes mellitus, diabetic neuropathy, gout, hypothyroidism, hyperlipidemia, obesity, MALIA, depression, chronic pain, neurogenic bladder with chronic Vigil who presents to the hospital for evaluation after a fall and increased confusion. Patient was able to give to contribute much of her history and presenting symptoms. Most of history was obtained from the chart. Workup in the hospital include head CT which is showing a stable 1.7 cm meningioma and left cerebellopontine angle. a knee and tib fib x-ray which shows an old internally fixed fracture of the distal right tibia and fibula, mild polyarticular osteoarthritis at the right knee and ankle, no acute fracture. chest x-ray showing airspace opacities which could be due to bronchiolitis asthma or mild pulmonary edema. EKG showing sinus rhythm with a rate of 95, QTC 433. Last echo was reviewed from 03/09/2021 showing a normal LV systolic function, with an estimated EF of 65-70%, grade 1 diastolic dysfunction. Initial labs showing a normal white count of 7.3, hemoglobin 10.3, hematocrit 32.9, platelet count is 139, INR 1.3, sodium 134, BUN 37, creatinine 1.5, EGFR 34, blood glucose 383, lactic acid 2.2, liver enzymes are normal, C reactive protein 7.0, proBNP 512. A UA was also performed showing 2+ protein, 1+ glucose, 2+ urine blood, positive nitrates, trace leukocytes, 6-10 urine RBCs, 21-50 urine wbc's, 4+ bacteria, yeast was present. She also had a respiratory panel showing that she was positive for influenza A. Blood in urine cultures were obtained and are pending. Patient was given Rocephin and azithromycin while in the ED. On examination today patient is alert and oriented x3, lying in the bed. Patient denies any fever, chills, nausea, vomiting, diarrhea, abdominal pain, chest pain, shortness a breath. Review of Systems Review of Systems: All systems reviewed & are unremarkable except as noted in HPI and below Constitutional: Constitutional: Reports as per HPI and Reports no additional constitutional complaints Eyes: Eyes: Reports as per HPI and Reports no additional eye complaints ENT: Reports system reviewed and no additional complaints, except as documented and Reports as per HPI Cardiovascular: Cardiovascular: Reports as per HPI and Reports no additional cardiovascular complaints Respiratory: Respiratory: Reports as per HPI and Reports no additional respiratory complaints Gastrointestinal: Gastrointestinal: Reports as per HPI and Reports no additional gastrointestinal complaints Genitourinary: Genitourinary: Reports no additional female genitourinary complaints and Reports as per HPI Musculoskeletal: Musculoskeletal: Reports no additional musculoskeletal complaints and Reports as per HPI Integumentary/Breasts: Skin/Breast: Reports system reviewed and no additional complaints, except as docu and Reports as per HPI Neurologic: Reports system reviewed and no additional complaints, except as documented and Reports as per HPI Psychiatric: Psychiatric: Reports no additional psychiatric complaints and Reports as per HPI [facility] Past Medical History Medical History Abnormality of gait and mobility Acute appendicitis with localized peritonitis Acute vulvitis Adverse effect of unspecified antipsychotics and neuroleptics, sequela Antipsychotic-induced akathisia Anxiety Arm pain, right Benign essential HTN Benign essential hypertension Benzodiazepine abuse, continuous Body mass index [BMI] 39.0-39.9, adult (11/12/16) Brain hypoxia Candidiasis, intertriginous Chronic kidney disease due to diabetes mellitus Chronic kidney disease, stage III (moderate) Chronic pain disorder Cognitive impairment Confusion Dependence on ot
[2023-05-18 15:06] LABS: Lactic Acid 1.9 mmol/L (0.7-2.0)
[2023-05-18 15:36] LABS: Glucose Point of Care 179 mg/dl (65-105)
[2023-05-18] MEDS: HYDROcodone/acetaminophen (*CRX) 5-325 MG TABLET 1 TAB PO (17:34)
[2023-05-18] MEDS: INSULIN GLARGINE (*BKC) 100 UNITS/ML 20 UNITS SUB-Q (20:33)
[2023-05-18 20:42] LABS: Glucose Point of Care 161 mg/dl (65-105)
[2023-05-18] MEDS: ACETAMINOPHEN 325 MG TABLET 650 MG PO (20:48)
[2023-05-19] VITALS (14 sets, daily range): BP systolic 123–166; BP diastolic 66–90; PULSE 71–80; RESP 18–20; TEMP 36.4–37; O2SAT 88–98
[2023-05-19] MEDS: ATORVASTATIN 10 MG TABLET BY MOUTH ×2 (00:14→20:40)
[2023-05-19] MEDS: METOPROLOL TARTRATE 50 MG TAB BY MOUTH ×3 (00:14→20:40)
[2023-05-19] MEDS: HYDROcodone/acetaminophen (*CRX) 5-325 MG TABLET 1 TAB PO ×2 (02:41→13:38)
[2023-05-19 06:11] LABS: Basophils Percent Auto 0.2 % (0.2-1.2); Eosinophils Percent Auto 0.2 % (0-4.4); Hematocrit 32.8 % (37.0-47.0); Hemoglobin 10.1 g/dL (12.0-15.0); Immature Granulocyte Absolute 0.06 K/mm3 (0.00-0.031); Immature Granulocyte Percent A 0.7 % (0-0.5); Immature Platelet Fraction Pct 6.7 % (0.9-11.2); Lymphocytes Absolute Auto 1.27 K/mm3 (0.9-3.2); Lymphocytes Percent Auto 15.5 % (18.3-44.2); Mean Corpuscular HGB Conc 30.8 g/dl (32-36); Mean Corpuscular Hemoglobin 29.9 pg (26-34); Mean Platelet Volume 11.1 fl (7.4-10.4); Monocytes Absolute Auto 0.7 K/mm3 (0.1-0.6); Neutrophils Absolute Auto 6.2 K/mm3 (1.3-6.7); Neutrophils Percent Auto 75.4 % (45.5-73.1); Platelet Count Result 130 k/mm3 (150-375); Red Blood Count 3.38 M/mm3 (4.2-5.4); Red Cell Distribution Width 15.7 % (11.5-14.5); White Blood Count 8.2 K/mm3 (4.5-10.0)
[2023-05-19 06:32] LABS: Alanine Aminotransferase 27 U/L (6-35); Albumin Level 3.5 g/dL (3.5-5.1); Alkaline Phosphatase 80 U/L (38-126); Anion Gap 0 mmol/L (8-16); Aspartate Amino Transferase 47 U/L (14-36); Bilirubin,Total 0.5 mg/dL (0.2-1.3); Blood Urea Nitrogen 31 mg/dL (7-17); Calcium 8.6 mg/dL (8.4-10.2); Carbon Dioxide 31 mmol/L (22-30); Chloride 105 mmol/L (98-107); Estimated CRCL calculation 49 ml/min; Estimated Glomerular Filt Rate 37; Glucose 126 mg/dL (65-110); Potassium 4.5 mmol/L (3.4-5.0); Sodium 136 mmol/L (137-145)
[2023-05-19 07:30] LABS: Hemoglobin A1C 6.1 % (<5.7)
[2023-05-19] MEDS: LACTULOSE 20 GM/30 ML UDC PO ×3 (08:06→17:28)
[2023-05-19] MEDS: cloNIDine HCL 0.1 MG TABLET PO ×3 (08:11→17:28)
[2023-05-19] MEDS: ASPIRIN 81 MG ENTERIC TABLET PO ×2 (08:12→17:28)
[2023-05-19] MEDS: lisinopriL 20 MG TABLET PO (08:12)
[2023-05-19] MEDS: polyethylene glycoL 3350 17 GM POWD.PACK PO (08:12)
[2023-05-19] MEDS: PREGABALIN (*CRX) 50 MG CAPSULE 200 MG PO ×2 (08:12→17:28)
[2023-05-19] MEDS: QUEtiapine FUMARATE 100 MG TABLET 200 MG PO ×2 (08:12→20:40)
[2023-05-19] MEDS: OSELTAMIVIR PHOSPHATE 30 MG CAPSULE PO ×2 (08:12→20:39)
[2023-05-19] MEDS: APIXABAN 2.5 MG TABLET PO (08:12)
[2023-05-19] MEDS: TERBINAFINE HCL 250 MG TABLET PO (08:13)
[2023-05-19] MEDS: DULoxetine HCL 30 MG CAPSULE.DR PO ×2 (08:13→20:39)
[2023-05-19] MEDS: BENZTROPINE MESYLATE 0.5 MG TABLET BY MOUTH ×3 (08:13→17:28)
[2023-05-19] MEDS: LINACLOTIDE 145 MCG CAPSULE 290 MCG PO (08:13)
[2023-05-19] MEDS: INSULIN GLARGINE (*BKC) 100 UNITS/ML 20 UNITS SUB-Q ×2 (08:55→17:27)
[2023-05-19] MEDS: ONDANSETRON INJ 4 MG/2 ML VIAL IV PUSH (08:55)
[2023-05-19] MEDS: AZITHROMYCIN 250 MG TABLET 500 MG PO (08:55)
[2023-05-19 09:03] LABS: Glucose Point of Care 121 mg/dl (65-105)
[2023-05-19 12:05] LABS: Glucose Point of Care 126 mg/dl (65-105)
--- NOTE | 2023-05-19 12:15 | PM.IMPN ---
Progress Note: A&P Assessment and Plan (1) Acute hypoxic respiratory failure: Code(s): J96.01 - Acute respiratory failure with hypoxia Status: Acute Assessment and Plan: Presented with O2 sat of 87% on room air, currently on 3 L nasal cannula Likely secondary to influenza A Continue to wean O2 for an oxygen saturation greater than 92% Start incentive spirometry Chest x-ray revealed Perihilar bronchial wall thickening without evidence airspace opacities which could be due to bronchitis, reactive airway disease/asthma or mild pulmonary disease. (2) Influenza A: Code(s): J10.1 - Influenza due to other identified influenza virus with other respiratory manifestations Status: Acute Assessment and Plan: Respiratory panel positive for Influenza A Will start Tamiflu (3) UTI (urinary tract infection) due to urinary indwelling Villa catheter: Code(s): T83.511A - Infection and inflammatory reaction due to indwelling urethral catheter, initial encounter; N39.0 - Urinary tract infection, site not specified Status: Acute Assessment and Plan: Meeting SIRS criteria due to tachycardia, lactic acid elevated to 2.2, and known UTI UA showing 2+ protein, 1+ urine glucose, 2+ urine blood, positive nitrates, trace leukocytes, 6-10 urine RBCs, urine WBCs, 4+ bacteria, urine yeast. Urine and blood culture obtained and is pending Chronic villa due to neurogenic bladder, changed this admission Started on Rocephin Hx of UTI's in the past Citrobacter freundii, citrobacter braakii, and enterobacter cloacae complex on the past. : additional dose of Rocephin given this morning for 2 g daily but then antibiotics changed after discussion with ID pharmacist regarding prior culture results and a tendency to build up amp-c induced resistance to beta lactams that is best covered with cefepime. (4) Neurogenic bladder: Code(s): N31.9 - Neuromuscular dysfunction of bladder, unspecified Status: Chronic Assessment and Plan: See above Chronic Villa : Villa changed (5) Fall: Code(s): W19.XXXA - Unspecified fall, initial encounter Status: Acute Assessment and Plan: Status post ground level fall Head CT showed stable 1.7 cm meningioma and left cerebellopontine angle Knee x-ray and tibia/fibula x-ray showing old internally fixed fracture of the distal right tibia and fibula near anatomic alignment, mild polyarticular OA at the right knee, ankle, and visualized foot. : Significant swelling and bruising to the right calf status post fall. (6) Diabetic neuropathy: Qualifiers: Diabetes mellitus type: type 2 Diabetes mellitus complication detail: diabetic polyneuropathy Qualified Code(s): E11.42 - Type 2 diabetes mellitus with diabetic polyneuropathy Code(s): E11.40 - Type 2 diabetes mellitus with diabetic neuropathy, unspecified Status: Acute Assessment and Plan: ACHS fingerstick glucose with insulin home meds and SSI. (7) MALIA on CPAP: Code(s): G47.33 - Obstructive sleep apnea (adult) (pediatric); Z99.89 - Dependence on other enabling machines and devices Status: Acute Assessment and Plan: CPAP ordered (8) Benign essential HTN: Code(s): I10 - Essential (primary) hypertension Status: Chronic Assessment and Plan: Blood pressures ranging blood pressure 133/95 to 171/76 Restart lisinopril, clonidine, and metoprolol Blood pressure reviewed on , continue home medication no acute intervention needed at this time. (9) Mixed hyperlipidemia: Code(s): E78.2 - Mixed hyperlipidemia Status: Chronic Assessment and Plan: Restart aspirin and atorvastatin (10) Morbid obesity with BMI of 40.0-44.9, adult: Code(s): E66.01 - Morbid (severe) obesity due to excess calories; Z68.41 - Body mass index [BMI] 40.0-44.9, adult Status: Chronic Assessment and
[2023-05-19 17:48] LABS: Glucose Point of Care 130 mg/dl (65-105)
[2023-05-19] MEDS: MEMANTINE HCL XR 28 MG CAP PO (20:39)
[2023-05-19] MEDS: DONEPEZIL HCL 10 MG TABLET PO (20:39)
[2023-05-19] MEDS: CEFEPIME 1 GM/NS 50 ML 1 GM/50 ML BAG IVPB (20:40)
[2023-05-19 21:01] LABS: Glucose Point of Care 136 mg/dl (65-105)
--- NOTE | 2023-05-19 21:25 | PM.EVENT ---
Event Note Event Note Event Note: Cross Coverage: Patient has had 2 episodes of diarrhea this evening. Was recently prescribed Linzess. On Lactulose. Hold Linzess. Continue lactulose. Imodium PRN. on Keflex at beginning of Apr. Add C. Diff.
[2023-05-20] VITALS (11 sets, daily range): BP systolic 103–156; BP diastolic 51–63; PULSE 73–87; RESP 14–20; TEMP 36.2–36.7; O2SAT 92–100
--- NOTE | 2023-05-20 | ECHO_ITS ---
Patient Info Name: Christien Michel Age: 68 years : 1955 Gender: Female Ht: 68 in Wt: 285 lbs BSA: 2.56 m2 HR: 82 bpm BP: 136 / 61 mmHg Heart Rhythm: Sinus Rhythm Technical Quality: Fair Exam Date: 05/20/2023 11:06 AM Exam Location: Echo Lab Patient Status: Inpatient Admit Date: 05/19/2023 Staff Ordering Physician: Herb Kaur APRN Vascular Surgery Physician: Stephanie Trujillo RDCS Attending Provider: Chuck Orozco MD Referring Physician: Vincent HUDSON; Exam Type: CA echo dop color flow w con Study Info Indications - Dyspnea, possible pulmonary edema on cxr Complete two-dimensional, color flow and Doppler transthoracic echocardiogram is performed with contrast to opacify the left ventricle and to improve the deliniation of the left ventricle endocardial borders. Contrast/Agitated Saline Contrast/Ag. Saline: Definity Amount: 2.00 ml Administered By: Stephanie Trujillo RDCS Existing IV Access: Yes IV Access Condition: patent with no signs of infiltration Summary 1. Definity contrast used to improve visualization. 2. Normal, nearly hyperdynamic left ventricular systolic function. 3. Grade 1 diastolic noncompliance. 4. Sclerotic aortic valve with well maintained leaflet separation. 5. Compared with examination in this laboratory for 2020 the findings are unchanged. Left Ventricular Outflow Tract Name Value Normal LVOT 2D LVOT Diameter 2.04 cm LVOT Doppler LVOT Peak Gradient 5 mmHg LVOT Mean Gradient 2 mmHg LVOT VTI 19.25 cm LVOT VTI/AV VTI Ratio 0.90 LVOT Stroke Volume 62.92 ml LVOT CO 4.53 l/min LVOT CI 1.77 L/min/m2 Pulmonic Valve Name Value Normal RVOT Doppler RVOT Peak Gradient 2 mmHg PV Doppler PV Peak Gradient 4 mmHg Mitral Valve Name Value Normal MV Doppler MV Decel [place] 356.02 cm/s2 MV PHT 0 s MV Area (PHT) 3.41 cm2 4.00-5.00 MV Diastolic Function MV E Peak Velocity 79.27 cm/s MV A Peak Velocity 86.68 cm/s MV E/A 0.91 MV Decel Time 0 s MV Annular TDI MV E/e' (Septal)
[2023-05-20] MEDS: LOPERAMIDE HCL 2 MG CAPSULE 4 MG PO (00:44)
[2023-05-20 06:00] LABS: Basophils Percent Auto 0.2 % (0.2-1.2); Eosinophils Absolute Auto 0.3 K/mm3 (0-0.3); Eosinophils Percent Auto 4.1 % (0-4.4); Hematocrit 33.1 % (37.0-47.0); Hemoglobin 10.1 g/dL (12.0-15.0); Immature Granulocyte Absolute 0.02 K/mm3 (0.00-0.031); Immature Granulocyte Percent A 0.3 % (0-0.5); Lymphocytes Absolute Auto 0.75 K/mm3 (0.9-3.2); Lymphocytes Percent Auto 12.4 % (18.3-44.2); Mean Corpuscular HGB Conc 30.5 g/dl (32-36); Mean Corpuscular Hemoglobin 30.2 pg (26-34); Mean Corpuscular Volume 99.1 fl (80-100); Mean Platelet Volume 11.1 fl (7.4-10.4); Monocytes Absolute Auto 0.4 K/mm3 (0.1-0.6); Monocytes Percent Auto 7.1 % (2.6-8.5); Neutrophils Absolute Auto 4.6 K/mm3 (1.3-6.7); Neutrophils Percent Auto 75.9 % (45.5-73.1); Platelet Count Result 135 k/mm3 (150-375); Red Blood Count 3.34 M/mm3 (4.2-5.4); Red Cell Distribution Width 15.9 % (11.5-14.5); White Blood Count 6.1 K/mm3 (4.5-10.0)
[2023-05-20 06:27] LABS: Alanine Aminotransferase 27 U/L (6-35); Albumin Level 3.4 g/dL (3.5-5.1); Alkaline Phosphatase 81 U/L (38-126); Anion Gap 5 mmol/L (8-16); Aspartate Amino Transferase 37 U/L (14-36); Bilirubin,Total 0.4 mg/dL (0.2-1.3); Blood Urea Nitrogen 35 mg/dL (7-17); Calcium 8.9 mg/dL (8.4-10.2); Carbon Dioxide 25 mmol/L (22-30); Chloride 109 mmol/L (98-107); Estimated CRCL calculation 43 ml/min; Estimated Glomerular Filt Rate 32; Glucose 151 mg/dL (65-110); Magnesium 2.2 mg/dL (1.6-2.3); Potassium 4.3 mmol/L (3.4-5.0); Sodium 139 mmol/L (137-145)
[2023-05-20 06:32] LABS: NT Pro B Type Natriuretic Pept 365 pg/mL (19.9-100)
[2023-05-20 07:50] LABS: Glucose Point of Care 151 mg/dl (65-105)
[2023-05-20] MEDS: CEFEPIME 1 GM/NS 50 ML 1 GM/50 ML BAG IVPB ×2 (09:05→20:13)
[2023-05-20] MEDS: lisinopriL 20 MG TABLET PO (09:07)
[2023-05-20] MEDS: METOPROLOL TARTRATE 50 MG TAB BY MOUTH ×2 (09:07→20:12)
[2023-05-20] MEDS: ASPIRIN 81 MG ENTERIC TABLET PO ×2 (09:07→17:38)
[2023-05-20] MEDS: cloNIDine HCL 0.1 MG TABLET PO ×3 (09:07→17:38)
[2023-05-20] MEDS: APIXABAN 2.5 MG TABLET PO (09:07)
[2023-05-20] MEDS: ERGOCALCIFEROL 50,000 UNITS CAPSULE 50000 UNITS PO (09:07)
[2023-05-20] MEDS: TERBINAFINE HCL 250 MG TABLET PO (09:07)
[2023-05-20] MEDS: DULoxetine HCL 30 MG CAPSULE.DR PO ×2 (09:08→20:13)
[2023-05-20] MEDS: QUEtiapine FUMARATE 100 MG TABLET 200 MG PO ×2 (09:08→20:13)
[2023-05-20] MEDS: AZITHROMYCIN 250 MG TABLET 500 MG PO (09:08)
[2023-05-20] MEDS: PREGABALIN (*CRX) 50 MG CAPSULE 200 MG PO ×2 (09:09→17:38)
[2023-05-20] MEDS: BENZTROPINE MESYLATE 0.5 MG TABLET BY MOUTH ×3 (09:09→17:38)
[2023-05-20] MEDS: OSELTAMIVIR PHOSPHATE 30 MG CAPSULE PO ×2 (09:09→20:13)
[2023-05-20] MEDS: INSULIN GLARGINE (*BKC) 100 UNITS/ML 20 UNITS SUB-Q ×2 (09:23→17:40)
--- NOTE | 2023-05-20 10:00 | PM.IMPN ---
Progress Note: A&P Assessment and Plan (1) Acute hypoxic respiratory failure: Code(s): J96.01 - Acute respiratory failure with hypoxia Status: Acute Assessment and Plan: Presented with O2 sat of 87% on room air, currently on 3 L nasal cannula Likely secondary to influenza A Continue to wean O2 for an oxygen saturation greater than 92% Start incentive spirometry Chest x-ray revealed Perihilar bronchial wall thickening without evidence airspace opacities which could be due to bronchitis, reactive airway disease/asthma or mild pulmonary disease. 05/19: patient is on 1 liter/minute nasal cannula. She was very drowsy this morning ordered ABG once she is off of her CPAP for the day (2) Influenza A: Code(s): J10.1 - Influenza due to other identified influenza virus with other respiratory manifestations Status: Acute Assessment and Plan: Respiratory panel positive for Influenza A Will start Tamiflu (3) UTI (urinary tract infection) due to urinary indwelling Villa catheter: Code(s): T83.511A - Infection and inflammatory reaction due to indwelling urethral catheter, initial encounter; N39.0 - Urinary tract infection, site not specified Status: Acute Assessment and Plan: Meeting SIRS criteria due to tachycardia, lactic acid elevated to 2.2, and known UTI UA showing 2+ protein, 1+ urine glucose, 2+ urine blood, positive nitrates, trace leukocytes, 6-10 urine RBCs, urine WBCs, 4+ bacteria, urine yeast. Urine and blood culture obtained and is pending Chronic villa due to neurogenic bladder, changed this admission Started on Rocephin Hx of UTI's in the past Citrobacter freundii, citrobacter braakii, and enterobacter cloacae complex on the past. : additional dose of Rocephin given this morning for 2 g daily but then antibiotics changed after discussion with ID pharmacist regarding prior culture results and a tendency to build up amp-c induced resistance to beta lactams that is best covered with cefepime. (4) Neurogenic bladder: Code(s): N31.9 - Neuromuscular dysfunction of bladder, unspecified Status: Chronic Assessment and Plan: See above Chronic Villa : Villa changed (5) Fall: Code(s): W19.XXXA - Unspecified fall, initial encounter Status: Acute Assessment and Plan: Status post ground level fall Head CT showed stable 1.7 cm meningioma and left cerebellopontine angle Knee x-ray and tibia/fibula x-ray showing old internally fixed fracture of the distal right tibia and fibula near anatomic alignment, mild polyarticular OA at the right knee, ankle, and visualized foot. : Significant swelling and bruising to the right calf status post fall. (6) Diabetic neuropathy: Qualifiers: Diabetes mellitus type: type 2 Diabetes mellitus complication detail: diabetic polyneuropathy Qualified Code(s): E11.42 - Type 2 diabetes mellitus with diabetic polyneuropathy Code(s): E11.40 - Type 2 diabetes mellitus with diabetic neuropathy, unspecified Status: Acute Assessment and Plan: ACHS fingerstick glucose with insulin home meds and SSI. (7) MALIA on CPAP: Code(s): G47.33 - Obstructive sleep apnea (adult) (pediatric); Z99.89 - Dependence on other enabling machines and devices Status: Acute Assessment and Plan: CPAP ordered (8) Benign essential HTN: Code(s): I10 - Essential (primary) hypertension Status: Chronic Assessment and Plan: Blood pressures ranging blood pressure 133/95 to 171/76 Restart lisinopril, clonidine, and metoprolol Blood pressure reviewed on 05/19, continue home medication no acute intervention needed at this time. (9) Mixed hyperlipidemia: Code(s): E78.2 - Mixed hyperlipidemia Status: Chronic Assessment and Plan: Restart aspirin and atorvastatin (10) Morbid obesity with BMI of 40.0-44.9, adult: Code(s): E66.01 - Mo
[2023-05-20] MEDS: PERFLUTREN LIPID MICROSPHERES 1.5 ML VIAL DILUTED TO 10 ML TOTAL VOLUME IV PUSH (11:36)
[2023-05-20 11:47] LABS: Glucose Point of Care 121 mg/dl (65-105)
--- NOTE | 2023-05-20 12:13 | IVDEFINITY ---
Prior to administration of IV Definity the patient was educated on the risks and benefits of the imaging enhancing agent including potential adverse side effects. The patient verbalized understanding. Allergies were verified. No exclusion criteria were identified and at least one of the following inclusion criteria were met: 1) physician request, 2) patient technically difficult to image (per the [place] [employer] guidelines of two or more segments not discernable within the apical view), or 3) questionable left ventricular function. ?
[2023-05-20 15:41] LABS: Alveolar/Arterial O2 Gradient 46.1 mmHg; Base Excess ABG 1.6 mEq/l (+/-2.0); Fractional Inspired Oxygen 24 %; HCO3 ABG 27.7 mEq/l (22.0-26.0); Oxygen Content ABG 13.3 %vol (16.0-22.0); Oxygen Saturation ABG 91.4 % (95.0-100.0); PCO2 ABG 50.9 mmHg (35.0-45.0); PO2 ABG 64.5 mmHg (80.0-100.0); PO2 FiO2 Ratio Arterial Blood 2.69 %; Total Hemoglobin 10.5 g/dL (12.0-18.0); pH ABG 7.354 (7.350-7.450)
[2023-05-20 15:46] LABS: Device NASAL CANNULA; Site Drawn RIGHT RADIAL
[2023-05-20 16:39] LABS: Glucose Point of Care 145 mg/dl (65-105)
[2023-05-20] MEDS: ATORVASTATIN 10 MG TABLET BY MOUTH (20:12)
[2023-05-20] MEDS: HYDROcodone/acetaminophen (*CRX) 5-325 MG TABLET 1 TAB PO (20:12)
[2023-05-20] MEDS: MEMANTINE HCL XR 28 MG CAP PO (20:12)
[2023-05-20] MEDS: DONEPEZIL HCL 10 MG TABLET PO (20:13)
[2023-05-20 21:26] LABS: Glucose Point of Care 140 mg/dl (65-105)
[2023-05-21] VITALS (13 sets, daily range): BP systolic 114–142; BP diastolic 57–66; PULSE 63–94; RESP 13–20; TEMP 36.1–36.8; O2SAT 92–96
[2023-05-21 05:46] LABS: Basophils Percent Auto 0.4 % (0.2-1.2); Eosinophils Absolute Auto 0.2 K/mm3 (0-0.3); Eosinophils Percent Auto 4.1 % (0-4.4); Hematocrit 31.9 % (37.0-47.0); Hemoglobin 9.4 g/dL (12.0-15.0); Immature Granulocyte Absolute 0.02 K/mm3 (0.00-0.031); Immature Granulocyte Percent A 0.4 % (0-0.5); Lymphocytes Absolute Auto 0.99 K/mm3 (0.9-3.2); Lymphocytes Percent Auto 20.2 % (18.3-44.2); Mean Corpuscular HGB Conc 29.5 g/dl (32-36); Mean Corpuscular Hemoglobin 29.7 pg (26-34); Mean Corpuscular Volume 100.9 fl (80-100); Mean Platelet Volume 11.4 fl (7.4-10.4); Monocytes Absolute Auto 0.5 K/mm3 (0.1-0.6); Monocytes Percent Auto 10.2 % (2.6-8.5); Neutrophils Absolute Auto 3.2 K/mm3 (1.3-6.7); Neutrophils Percent Auto 64.7 % (45.5-73.1); Platelet Count Result 134 k/mm3 (150-375); Red Blood Count 3.16 M/mm3 (4.2-5.4); Red Cell Distribution Width 15.6 % (11.5-14.5); White Blood Count 4.9 K/mm3 (4.5-10.0)
[2023-05-21 06:01] LABS: Alanine Aminotransferase 27 U/L (6-35); Albumin Level 3.3 g/dL (3.5-5.1); Alkaline Phosphatase 83 U/L (38-126); Anion Gap 6 mmol/L (8-16); Aspartate Amino Transferase 33 U/L (14-36); Bilirubin,Total 0.5 mg/dL (0.2-1.3); Blood Urea Nitrogen 43 mg/dL (7-17); Calcium 8.9 mg/dL (8.4-10.2); Carbon Dioxide 23 mmol/L (22-30); Chloride 109 mmol/L (98-107); Estimated CRCL calculation 40 ml/min; Estimated Glomerular Filt Rate 30; Glucose 116 mg/dL (65-110); Magnesium 2.3 mg/dL (1.6-2.3); Potassium 4.1 mmol/L (3.4-5.0); Sodium 138 mmol/L (137-145)
[2023-05-21 08:51] LABS: Glucose Point of Care 118 mg/dl (65-105)
[2023-05-21] MEDS: polyethylene glycoL 3350 17 GM POWD.PACK PO (08:55)
[2023-05-21] MEDS: DULoxetine HCL 30 MG CAPSULE.DR PO ×2 (08:56→20:54)
[2023-05-21] MEDS: QUEtiapine FUMARATE 100 MG TABLET 200 MG PO ×2 (08:56→20:54)
[2023-05-21] MEDS: METOPROLOL TARTRATE 50 MG TAB BY MOUTH ×2 (08:56→20:54)
[2023-05-21] MEDS: BENZTROPINE MESYLATE 0.5 MG TABLET BY MOUTH ×3 (08:56→17:40)
[2023-05-21] MEDS: OSELTAMIVIR PHOSPHATE 30 MG CAPSULE PO ×2 (08:56→20:54)
[2023-05-21] MEDS: TERBINAFINE HCL 250 MG TABLET PO (08:57)
[2023-05-21] MEDS: APIXABAN 2.5 MG TABLET PO (08:58)
[2023-05-21] MEDS: ASPIRIN 81 MG ENTERIC TABLET PO ×2 (08:58→17:40)
[2023-05-21] MEDS: cloNIDine HCL 0.1 MG TABLET PO ×3 (08:58→17:40)
[2023-05-21] MEDS: PREGABALIN (*CRX) 50 MG CAPSULE 200 MG PO ×2 (08:58→17:40)
[2023-05-21] MEDS: LACTULOSE 20 GM/30 ML UDC PO ×3 (08:59→17:40)
[2023-05-21] MEDS: CEFEPIME 1 GM/NS 50 ML 1 GM/50 ML BAG IVPB ×2 (08:59→20:55)
[2023-05-21] MEDS: INSULIN GLARGINE (*BKC) 100 UNITS/ML 20 UNITS SUB-Q ×2 (09:09→17:43)
[2023-05-21] MEDS: lisinopriL 20 MG TABLET PO (09:13)
[2023-05-21] MEDS: HYDROcodone/acetaminophen (*CRX) 5-325 MG TABLET 1 TAB PO (10:47)
[2023-05-21 12:38] LABS: Glucose Point of Care 129 mg/dl (65-105)
[2023-05-21] MEDS: BENZONATATE 100 MG CAPSULE 200 MG PO ×2 (12:56→17:40)
--- NOTE | 2023-05-21 13:59 | PM.IMPN ---
Progress Note: A&P Assessment and Plan (1) Acute hypoxic respiratory failure: Code(s): J96.01 - Acute respiratory failure with hypoxia Status: Acute Assessment and Plan: Presented with O2 sat of 87% on room air, currently on 3 L nasal cannula Likely secondary to influenza A Continue to wean O2 for an oxygen saturation greater than 92% Start incentive spirometry Chest x-ray revealed Perihilar bronchial wall thickening without evidence airspace opacities which could be due to bronchitis, reactive airway disease/asthma or mild pulmonary disease. 05/19: patient is on 1 liter/minute nasal cannula. She was very drowsy this morning ordered ABG once she is off of her CPAP for the day. Later in the day oxygen had to be titrated up to 2 liters/minute. 05/20: unable to wean oxygen 92-96% 2 liters/minute nasal cannula. (2) Influenza A: Code(s): J10.1 - Influenza due to other identified influenza virus with other respiratory manifestations Status: Acute Assessment and Plan: Respiratory panel positive for Influenza A Will start Tamiflu 05/20: Tessalon Perles added for cough (3) UTI (urinary tract infection) due to urinary indwelling Villa catheter: Code(s): T83.511A - Infection and inflammatory reaction due to indwelling urethral catheter, initial encounter; N39.0 - Urinary tract infection, site not specified Status: Acute Assessment and Plan: Meeting SIRS criteria due to tachycardia, lactic acid elevated to 2.2, and known UTI UA showing 2+ protein, 1+ urine glucose, 2+ urine blood, positive nitrates, trace leukocytes, 6-10 urine RBCs, urine WBCs, 4+ bacteria, urine yeast. Urine and blood culture obtained and is pending Chronic villa due to neurogenic bladder, changed this admission Started on Rocephin Hx of UTI's in the past Citrobacter freundii, citrobacter braakii, and enterobacter cloacae complex on the past. : additional dose of Rocephin given this morning for 2 g daily but then antibiotics changed after discussion with ID pharmacist regarding prior culture results and a tendency to build up amp-c induced resistance to beta lactams that is best covered with cefepime. 05/20: urine culture growing mixed genital los. Blood cultures negative growth to date. (4) Neurogenic bladder: Code(s): N31.9 - Neuromuscular dysfunction of bladder, unspecified Status: Chronic Assessment and Plan: See above Chronic Villa : Villa changed (5) Fall: Code(s): W19.XXXA - Unspecified fall, initial encounter Status: Acute Assessment and Plan: Status post ground level fall Head CT showed stable 1.7 cm meningioma and left cerebellopontine angle Knee x-ray and tibia/fibula x-ray showing old internally fixed fracture of the distal right tibia and fibula near anatomic alignment, mild polyarticular OA at the right knee, ankle, and visualized foot. : Significant swelling and bruising to the right calf status post fall. 05/20: Worsened pain today, added IV Dilaudid p.r.n. pulse motor and sensation intact distally with increase in pain and right hip and right calf, compartments soft but tender to palpation (6) Diabetic neuropathy: Qualifiers: Diabetes mellitus type: type 2 Diabetes mellitus complication detail: diabetic polyneuropathy Qualified Code(s): E11.42 - Type 2 diabetes mellitus with diabetic polyneuropathy Code(s): E11.40 - Type 2 diabetes mellitus with diabetic neuropathy, unspecified Status: Acute Assessment and Plan: ACHS fingerstick glucose with insulin home meds and SSI. (7) MALIA on CPAP: Code(s): G47.33 - Obstructive sleep apnea (adult) (pediatric); Z99.89 - Dependence on other enabling machines and devices Status: Acute Assessment and Plan: CPAP ordered 05/20: patient is tolerating PAP therapy at night (8) Benign essential HTN: Code(s): I10 - Essential (primary) hypertension
[2023-05-21 17:00] LABS: Alveolar/Arterial O2 Gradient 66.5 mmHg; Base Excess ABG -0.8 mEq/l (+/-2.0); Fractional Inspired Oxygen 28 %; HCO3 ABG 25.6 mEq/l (22.0-26.0); Oxygen Content ABG 13.7 %vol (16.0-22.0); Oxygen Saturation ABG 93.4 % (95.0-100.0); Oxyhemoglobin 91.7 % THb (90.0-100.0); PCO2 ABG 50.9 mmHg (35.0-45.0); PO2 ABG 73.1 mmHg (80.0-100.0); PO2 FiO2 Ratio Arterial Blood 2.61 %; Total Hemoglobin 10.6 g/dL (12.0-18.0)
[2023-05-21 17:01] LABS: Device NASAL CANNULA; Modified Allen's Test Pass; Site Drawn LEFT RADIAL
[2023-05-21 17:34] LABS: Glucose Point of Care 138 mg/dl (65-105)
[2023-05-21] MEDS: DONEPEZIL HCL 10 MG TABLET PO (20:54)
[2023-05-21] MEDS: ATORVASTATIN 10 MG TABLET BY MOUTH (20:54)
[2023-05-21] MEDS: MEMANTINE HCL XR 28 MG CAP PO (20:54)
[2023-05-21] MEDS: INSULIN ASPART (*BKC) 100 UNITS/ML SUB-Q (20:55)
[2023-05-21 21:20] LABS: Glucose Point of Care 213 mg/dl (65-105)
[2023-05-22] VITALS (11 sets, daily range): BP systolic 110–149; BP diastolic 48–74; PULSE 71–95; RESP 18–20; TEMP 36.1–36.7; O2SAT 94–98
[2023-05-22 05:26] LABS: Basophils Percent Auto 0.5 % (0.2-1.2); Eosinophils Absolute Auto 0.2 K/mm3 (0-0.3); Eosinophils Percent Auto 2.9 % (0-4.4); Hemoglobin 9.3 g/dL (12.0-15.0); Immature Granulocyte Absolute 0.11 K/mm3 (0.00-0.031); Lymphocytes Absolute Auto 1.35 K/mm3 (0.9-3.2); Lymphocytes Percent Auto 24.2 % (18.3-44.2); Mean Corpuscular Hemoglobin 30.1 pg (26-34); Mean Corpuscular Volume 100.3 fl (80-100); Mean Platelet Volume 11.1 fl (7.4-10.4); Monocytes Absolute Auto 0.7 K/mm3 (0.1-0.6); Monocytes Percent Auto 11.7 % (2.6-8.5); Neutrophils Absolute Auto 3.3 K/mm3 (1.3-6.7); Neutrophils Percent Auto 58.7 % (45.5-73.1); Platelet Count Result 165 k/mm3 (150-375); Red Blood Count 3.09 M/mm3 (4.2-5.4); Red Cell Distribution Width 15.5 % (11.5-14.5); White Blood Count 5.6 K/mm3 (4.5-10.0)
[2023-05-22 05:42] LABS: Alanine Aminotransferase 27 U/L (6-35); Albumin Level 3.4 g/dL (3.5-5.1); Alkaline Phosphatase 82 U/L (38-126); Anion Gap 4 mmol/L (8-16); Aspartate Amino Transferase 28 U/L (14-36); Bilirubin,Total 0.5 mg/dL (0.2-1.3); Blood Urea Nitrogen 43 mg/dL (7-17); Calcium 8.9 mg/dL (8.4-10.2); Carbon Dioxide 24 mmol/L (22-30); Chloride 109 mmol/L (98-107); Estimated CRCL calculation 43 ml/min; Estimated Glomerular Filt Rate 32; Glucose 134 mg/dL (65-110); Magnesium 2.4 mg/dL (1.6-2.3); Potassium 4.4 mmol/L (3.4-5.0); Sodium 137 mmol/L (137-145)
[2023-05-22] MEDS: CEFEPIME 1 GM/NS 50 ML 1 GM/50 ML BAG IVPB ×2 (08:24→20:55)
[2023-05-22] MEDS: polyethylene glycoL 3350 17 GM POWD.PACK PO (08:24)
[2023-05-22] MEDS: METOPROLOL TARTRATE 50 MG TAB BY MOUTH ×2 (08:25→20:44)
[2023-05-22] MEDS: LACTULOSE 20 GM/30 ML UDC PO ×3 (08:25→16:45)
[2023-05-22] MEDS: BENZTROPINE MESYLATE 0.5 MG TABLET BY MOUTH ×3 (08:26→16:45)
[2023-05-22] MEDS: QUEtiapine FUMARATE 100 MG TABLET 200 MG PO (08:26)
[2023-05-22] MEDS: BENZONATATE 100 MG CAPSULE 200 MG PO ×3 (08:26→16:45)
[2023-05-22] MEDS: cloNIDine HCL 0.1 MG TABLET PO (08:26)
[2023-05-22] MEDS: ASPIRIN 81 MG ENTERIC TABLET PO ×2 (08:27→16:45)
[2023-05-22] MEDS: PREGABALIN (*CRX) 50 MG CAPSULE 200 MG PO (08:27)
[2023-05-22] MEDS: APIXABAN 2.5 MG TABLET PO (08:27)
[2023-05-22] MEDS: OSELTAMIVIR PHOSPHATE 30 MG CAPSULE PO ×2 (08:27→20:44)
[2023-05-22] MEDS: TERBINAFINE HCL 250 MG TABLET PO (08:27)
[2023-05-22] MEDS: DULoxetine HCL 30 MG CAPSULE.DR PO ×2 (08:27→20:44)
[2023-05-22] MEDS: lisinopriL 20 MG TABLET PO (08:27)
[2023-05-22] MEDS: INSULIN GLARGINE (*BKC) 100 UNITS/ML 20 UNITS SUB-Q ×2 (08:29→17:34)
[2023-05-22 08:49] LABS: Glucose Point of Care 130 mg/dl (65-105)
--- NOTE | 2023-05-22 11:57 | P.PNIM_ITS ---
Progress Note: A&P Assessment and Plan (1) Acute hypoxic respiratory failure: Code(s): J96.01 - Acute respiratory failure with hypoxia Status: Acute Assessment and Plan: * Presented with O2 sat of 87% on room air, currently on 3 L nasal cannula * Likely secondary to influenza A * Continue to wean O2 for an oxygen saturation greater than 92% * Start incentive spirometry * Chest x-ray revealed Perihilar bronchial wall thickening without evidence airspace opacities which could be due to bronchitis, reactive airway disease/asthma or mild pulmonary disease. 05/19: patient is on 1 liter/minute nasal cannula. She was very drowsy this morning ordered ABG once she is off of her CPAP for the day. Later in the day oxygen had to be titrated up to 2 liters/minute. 05/20: unable to wean oxygen 92-96% 2 liters/minute nasal cannula. (2) Influenza A: Code(s): J10.1 - Influenza due to other identified influenza virus with other respiratory manifestations Status: Acute Assessment and Plan: * Respiratory panel positive for Influenza A * Will start Tamiflu 05/20: Tessalon Perles added for cough (3) UTI (urinary tract infection) due to urinary indwelling Villa catheter: Code(s): T83.511A - Infection and inflammatory reaction due to indwelling urethral catheter, initial encounter; N39.0 - Urinary tract infection, site not specified Status: Acute Assessment and Plan: * Meeting SIRS criteria due to tachycardia, lactic acid elevated to 2.2, and known UTI * UA showing 2+ protein, 1+ urine glucose, 2+ urine blood, positive nitrates, trace leukocytes, 6-10 urine RBCs, urine WBCs, 4+ bacteria, urine yeast. * Urine and blood culture obtained and is pending * Chronic villa due to neurogenic bladder, changed this admission * Started on Rocephin * Hx of UTI's in the past Citrobacter freundii, citrobacter braakii, and enterobacter cloacae complex on the past. : additional dose of Rocephin given this morning for 2 g daily but then antibiotics changed after discussion with ID pharmacist regarding prior culture results and a tendency to build up amp-c induced resistance to beta lactams that is best covered with cefepime. 05/20: urine culture growing mixed genital los. Blood cultures negative growth to date. (4) Neurogenic bladder: Code(s): N31.9 - Neuromuscular dysfunction of bladder, unspecified Status: Chronic Assessment and Plan: * See above * Chronic Villa : Villa changed (5) Fall: Code(s): W19.XXXA - Unspecified fall, initial encounter Status: Acute Assessment and Plan: * Status post ground level fall * Head CT showed stable 1.7 cm meningioma and left cerebellopontine angle * Knee x-ray and tibia/fibula x-ray showing old internally fixed fracture of the distal right tibia and fibula near anatomic alignment, mild polyarticular OA at the right knee, ankle, and visualized foot. : Significant swelling and bruising to the right calf status post fall. 05/20: Worsened pain today, added IV Dilaudid p.r.n. pulse motor and sensation intact distally with increase in pain and right hip and right calf, compartments soft but tender to palpation (6) Diabetic neuropathy: Qualifiers: Diabetes mellitus type: type 2 Diabetes mellitus complication detail: diabetic polyneuropathy Qualified Code(s): E11.42 - Type 2 diabetes mellitus with diabetic polyneuropathy Code(s): E11.40 - Type 2 diabetes mellitus with diabetic neuropathy, unspecified Status: Acute Assessment and Plan: ACHS fingerstick glucose with insulin ho
[2023-05-22 12:13] LABS: Lactic Acid Reflex 0.6 mmol/L (0.7-2.0)
[2023-05-22 12:19] LABS: Ammonia < 9 umol/L (9-30)
[2023-05-22] MEDS: LACTATED RINGERS 1,000 ML 100 ML IV CONT (12:31)
[2023-05-22 12:48] LABS: Glucose Point of Care 136 mg/dl (65-105)
--- NOTE | 2023-05-22 15:56 | WPDNEURCNPN ---
Assessment and Plan Assessment and plan (1) Asterixis: Code(s): R27.8 - Other lack of coordination Status: Acute (2) Metabolic encephalopathy: Code(s): G93.41 - Metabolic encephalopathy Status: Acute Plan Metabolic tremor or asterixis in a patient history of chronic kidney disease, hypercarbia, diabetes mellitus, chronic obstructive pulmonary disease, currently undergoing treatment for a fall and a influenza a infection. Her BMI is 43.4. CT scan of brain shows a a meningioma in the left cerebral pontine medullary area which appears to be chronic. Based upon the current evaluation the treatment would be that of the underlying metabolic condition. It appears that she may have been diagnosed to have underlying dementia since he is on Aricept and Namenda. how suggest an EEG, check her B12 and folic acid level, thyroid function tests, vitamin-D level. I noted that you already have checked her for ammonia level which is within normal range. I shall be glad to follow up and discuss this further with the hospitalist team and nursing staff. Consult date: 05/22/23 Time Seen: 15:37 Reason for consult: The patient is a 68-year-old white female seen for neurologic evaluation. She had been found to have twitching of the body and altered mental status please see the admitted to the hospital on account of not feeling well and having some breathing problems previously been found to have influenza a infection. See also history of diabetes mellitus, obstructive sleep apnea syndrome and has been on CPAP for less than 5 years and exogenous obesity. She denies any pain at this time however she did have some issue with the fall yesterday and had sprained the right ankle which she is feeling better since age 8 down although the pain was more significant yesterday. She is aware of the twitching prior last 2 years. No passing out spell. The tracing appears to be generalized and not focal. I noted she is already on Namenda and Aricept for memory problems. Previous notes indicate history of chronic kidney disease and balance problems in walking. She uses a walker to get around. She has a and 2 grown-up children. She states she is independent with activity of daily living. HPI: Christine Michel is a 68 year old female Review of Systems Review of Systems: All systems reviewed & are unremarkable except as noted in HPI and below PMFSH Past Medical History Medical History (Updated 05/22/23 @ 16:09 by Earl Martinez MD) Abnormality of gait and mobility Acute appendicitis with localized peritonitis Acute vulvitis Adverse effect of unspecified antipsychotics and neuroleptics, sequela Antipsychotic-induced akathisia Anxiety Arm pain, right Asterixis Benign essential HTN Benign essential hypertension Benzodiazepine abuse, continuous Body mass index [BMI] 39.0-39.9, adult (11/12/16) Brain hypoxia Candidiasis, intertriginous Chronic kidney disease due to diabetes mellitus Chronic kidney disease, stage III (moderate) Chronic pain disorder Cognitive impairment Confusion Dependence on other enabling machines and devices Depressive type psychosis Diabetic nephropathy associated with type 2 diabetes mellitus Diabetic neuropathy Dietary counseling and surveillance (03/02/18) Dyskinesia, tardive RAMAN (generalized anxiety disorder) RAMAN (generalized anxiety disorder) Gait abnormality Gastroparesis Gout Iodine hypothyroidism Left lateral knee pain Lethargy half-way (current) use of insulin Metabolic encephalopathy Mild cognitive impairment with memory loss Mixed hyperlipidemia Morbid obesity with BMI of 40.0-44.9, adult Neuroleptic-induced tardive dyskinesia Obesity hypoventilation syndrome Opioid abuse with intoxication with complication MALIA on CPAP Polypharmacy Post-menopausal Severe recurrent major depressive disorder with psychotic features Type 2 diabetes mellitus with diabetic neuropathy, with long-term current us
[2023-05-22 17:16] LABS: Glucose Point of Care 146 mg/dl (65-105)
[2023-05-22] MEDS: DONEPEZIL HCL 10 MG TABLET PO (20:44)
[2023-05-22] MEDS: ATORVASTATIN 10 MG TABLET BY MOUTH (20:44)
[2023-05-22] MEDS: MEMANTINE HCL XR 28 MG CAP PO (20:44)
[2023-05-22 21:16] LABS: Glucose Point of Care 151 mg/dl (65-105)
[2023-05-22 22:27] LABS: Vitamin D 25 Hydroxy 73.6 ng/mL
[2023-05-22 23:22] LABS: Folic Acid > 20.0 ng/mL (2.76->20); Vitamin B12 > 1000.0 pg/mL (239-931)
[2023-05-23] MEDS: LACTATED RINGERS 1,000 ML 100 ML IV CONT ×2 (00:20→10:12)
[2023-05-23 04:48] VITALS: BP 159/75; PULSE 65; RESP 18; TEMP 36.5; O2SAT 99
[2023-05-23 05:56] LABS: Basophils Absolute Auto 0.1 K/mm3 (0.0-0.1); Eosinophils Absolute Auto 0.2 K/mm3 (0-0.3); Eosinophils Percent Auto 4.7 % (0-4.4); Hematocrit 30.3 % (37.0-47.0); Hemoglobin 9.3 g/dL (12.0-15.0); Immature Granulocyte Absolute 0.22 K/mm3 (0.00-0.031); Immature Granulocyte Percent A 4.5 % (0-0.5); Lymphocytes Percent Auto 22.3 % (18.3-44.2); Mean Corpuscular HGB Conc 30.7 g/dl (32-36); Mean Corpuscular Hemoglobin 30.4 pg (26-34); Mean Platelet Volume 11.5 fl (7.4-10.4); Monocytes Absolute Auto 0.5 K/mm3 (0.1-0.6); Neutrophils Absolute Auto 2.8 K/mm3 (1.3-6.7); Neutrophils Percent Auto 56.5 % (45.5-73.1); Platelet Count Result 170 k/mm3 (150-375); Red Blood Count 3.06 M/mm3 (4.2-5.4); Red Cell Distribution Width 15.3 % (11.5-14.5); White Blood Count 4.9 K/mm3 (4.5-10.0)
[2023-05-23 06:14] LABS: Alanine Aminotransferase 24 U/L (6-35); Albumin Level 3.2 g/dL (3.5-5.1); Alkaline Phosphatase 81 U/L (38-126); Anion Gap 3 mmol/L (8-16); Aspartate Amino Transferase 26 U/L (14-36); Bilirubin,Total 0.6 mg/dL (0.2-1.3); Blood Urea Nitrogen 40 mg/dL (7-17); Calcium 8.8 mg/dL (8.4-10.2); Carbon Dioxide 25 mmol/L (22-30); Chloride 112 mmol/L (98-107); Estimated CRCL calculation 52 ml/min; Estimated Glomerular Filt Rate 41; Glucose 125 mg/dL (65-110); Magnesium 2.3 mg/dL (1.6-2.3); Potassium 4.1 mmol/L (3.4-5.0); Sodium 140 mmol/L (137-145)
[2023-05-23 07:56] VITALS: O2SAT 95
[2023-05-23 08:45] LABS: Glucose Point of Care 130 mg/dl (65-105)
[2023-05-23 09:32] LABS: Free T4 Free Thyroxine 0.97 ng/mL (0.78-2.19)
[2023-05-23] MEDS: CEFEPIME 1 GM/NS 50 ML 1 GM/50 ML BAG IVPB (10:12)
[2023-05-23 10:15] VITALS: PULSE 80
[2023-05-23] MEDS: lisinopriL 20 MG TABLET PO (10:15)
[2023-05-23] MEDS: OSELTAMIVIR PHOSPHATE 30 MG CAPSULE PO ×2 (10:15→20:03)
[2023-05-23] MEDS: METOPROLOL TARTRATE 50 MG TAB BY MOUTH ×2 (10:15→20:02)
[2023-05-23] MEDS: DULoxetine HCL 30 MG CAPSULE.DR PO ×2 (10:16→20:03)
[2023-05-23] MEDS: BENZTROPINE MESYLATE 0.5 MG TABLET BY MOUTH ×3 (10:16→17:29)
[2023-05-23] MEDS: LACTULOSE 20 GM/30 ML UDC PO (10:17)
[2023-05-23] MEDS: INSULIN GLARGINE (*BKC) 100 UNITS/ML 20 UNITS SUB-Q ×2 (10:17→17:31)
[2023-05-23] MEDS: APIXABAN 2.5 MG TABLET PO (10:17)
[2023-05-23] MEDS: BENZONATATE 100 MG CAPSULE 200 MG PO ×3 (10:17→17:29)
[2023-05-23] MEDS: ASPIRIN 81 MG ENTERIC TABLET PO ×2 (10:17→17:29)
[2023-05-23] MEDS: TERBINAFINE HCL 250 MG TABLET PO (10:17)
[2023-05-23 11:28] LABS: Total Triiodothyronine (T3) 0.61 NG/ML (0.97-1.69)
[2023-05-23] MEDS: ONDANSETRON INJ 4 MG/2 ML VIAL IV PUSH ×2 (12:06→18:38)
[2023-05-23 12:19] LABS: Glucose Point of Care 128 mg/dl (65-105)
--- NOTE | 2023-05-23 13:20 | PM.IMPN ---
Progress Note: A&P Assessment and Plan (1) Acute hypoxic respiratory failure: Code(s): J96.01 - Acute respiratory failure with hypoxia Status: Acute Assessment and Plan: Presented with O2 sat of 87% on room air, currently on 3 L nasal cannula Likely secondary to influenza A Continue to wean O2 for an oxygen saturation greater than 92% Start incentive spirometry Chest x-ray revealed Perihilar bronchial wall thickening without evidence airspace opacities which could be due to bronchitis, reactive airway disease/asthma or mild pulmonary disease. 05/19: patient is on 1 liter/minute nasal cannula. She was very drowsy this morning ordered ABG once she is off of her CPAP for the day. Later in the day oxygen had to be titrated up to 2 liters/minute. 05/20: unable to wean oxygen 92-96% 2 liters/minute nasal cannula. 05/22: Weaned to room air today (2) Influenza A: Code(s): J10.1 - Influenza due to other identified influenza virus with other respiratory manifestations Status: Acute Assessment and Plan: Respiratory panel positive for Influenza A Will start Tamiflu 05/20: Tessalon Perles added for cough (3) UTI (urinary tract infection) due to urinary indwelling Villa catheter: Code(s): T83.511A - Infection and inflammatory reaction due to indwelling urethral catheter, initial encounter; N39.0 - Urinary tract infection, site not specified Status: Acute Assessment and Plan: Meeting SIRS criteria due to tachycardia, lactic acid elevated to 2.2, and known UTI UA showing 2+ protein, 1+ urine glucose, 2+ urine blood, positive nitrates, trace leukocytes, 6-10 urine RBCs, urine WBCs, 4+ bacteria, urine yeast. Urine and blood culture obtained and is pending Chronic villa due to neurogenic bladder, changed this admission Started on Rocephin Hx of UTI's in the past Citrobacter freundii, citrobacter braakii, and enterobacter cloacae complex on the past. : additional dose of Rocephin given this morning for 2 g daily but then antibiotics changed after discussion with ID pharmacist regarding prior culture results and a tendency to build up amp-c induced resistance to beta lactams that is best covered with cefepime. 05/20: urine culture growing mixed genital los. Blood cultures negative growth to date. 05/22: Cefepime stopped, there is possibility that cefepime could be the reason for patient's altered mental status. (4) Neurogenic bladder: Code(s): N31.9 - Neuromuscular dysfunction of bladder, unspecified Status: Chronic Assessment and Plan: See above Chronic Villa : Villa changed (5) Fall: Code(s): W19.XXXA - Unspecified fall, initial encounter Status: Acute Assessment and Plan: Status post ground level fall Head CT showed stable 1.7 cm meningioma and left cerebellopontine angle Knee x-ray and tibia/fibula x-ray showing old internally fixed fracture of the distal right tibia and fibula near anatomic alignment, mild polyarticular OA at the right knee, ankle, and visualized foot. : Significant swelling and bruising to the right calf status post fall. 05/20: Worsened pain today, added IV Dilaudid p.r.n. pulse motor and sensation intact distally with increase in pain and right hip and right calf, compartments soft but tender to palpation (6) Diabetic neuropathy: Qualifiers: Diabetes mellitus type: type 2 Diabetes mellitus complication detail: diabetic polyneuropathy Qualified Code(s): E11.42 - Type 2 diabetes mellitus with diabetic polyneuropathy Code(s): E11.40 - Type 2 diabetes mellitus with diabetic neuropathy, unspecified Status: Acute Assessment and Plan: ACHS fingerstick glucose with insulin home meds and SSI. (7) MALIA on CPAP: Code(s): G47.33 - Obstructive sleep apnea (adult) (pediatric); Z99.89 - Dependence on other enabling machines and devices Status: Acute Assessment and Plan:
[2023-05-23 14:00] VITALS: BP 170/84; PULSE 67; RESP 16; TEMP 36.8; O2SAT 94
[2023-05-23] MEDS: HYDROcodone/acetaminophen (*CRX) 5-325 MG TABLET 1 TAB PO ×2 (15:40→20:01)
[2023-05-23 17:28] LABS: Glucose Point of Care 123 mg/dl (65-105)
--- NOTE | 2023-05-23 18:34 | WPDNEUROLOGY ---
Neurology EEG Report General Information Date of Study: 05/23/23 TEST electroencephalogram DIAGNOSIS myoclonic jerks CLINICAL HISTORY 68-year-old with history of she is here in body muscle twitching EEG DESCRIPTION The background activity consists of predominant theta activity. It appears poorly organized. Superimposed frontal intermittent rhythmic delta activity and eye movement artifacts were seen. Okay though suspicious sharper activities were seen over both temporal areas independently, but appeared poorly defined. The patient remains drowsy through a significant part of the recording. Blink artifacts were seen previously during recording. Patient described as having eye, facial and body twitching and difficult for her to lie still. IMPRESSION Abnormal EEG due to presence of diffuse background slowing and intermittent rhythmic delta activity suggestive of generalized encephalopathy. Of suspicious sharp wave activity noted over both temporal areas particular during the drowsiness and are considered nonspecific abnormalities. in this pattern may be seen with generalized encephalopathy suggest maybe associated metabolic or bihemispheric abnormalities. Clinical correlation is recommended
[2023-05-23] MEDS: MEMANTINE HCL XR 28 MG CAP PO (20:02)
[2023-05-23] MEDS: DONEPEZIL HCL 10 MG TABLET PO (20:02)
[2023-05-23] MEDS: ATORVASTATIN 10 MG TABLET BY MOUTH (20:02)
[2023-05-23 22:08] VITALS: BP 150/62; PULSE 72; RESP 18; TEMP 36.7; O2SAT 96
[2023-05-23 22:40] VITALS: RESP 14; O2SAT 97
[2023-05-24] VITALS (8 sets, daily range): BP systolic 155–185; BP diastolic 54–94; PULSE 58–74; RESP 11–21; TEMP 36.1–36.9; O2SAT 91–97
[2023-05-24] MEDS: LACTATED RINGERS 1,000 ML 100 ML IV CONT ×2 (02:25→18:08)
[2023-05-24 06:39] LABS: Alanine Aminotransferase 25 U/L (6-35); Albumin Level 3.4 g/dL (3.5-5.1); Alkaline Phosphatase 93 U/L (38-126); Anion Gap 4 mmol/L (8-16); Aspartate Amino Transferase 31 U/L (14-36); Bilirubin,Total 0.6 mg/dL (0.2-1.3); Blood Urea Nitrogen 28 mg/dL (7-17); Calcium 9.3 mg/dL (8.4-10.2); Carbon Dioxide 27 mmol/L (22-30); Chloride 111 mmol/L (98-107); Estimated CRCL calculation 61 ml/min; Estimated Glomerular Filt Rate 49; Glucose 140 mg/dL (65-110); Potassium 4.2 mmol/L (3.4-5.0); Sodium 142 mmol/L (137-145)
[2023-05-24 06:50] LABS: Basophils Percent Auto 0.6 % (0.2-1.2); Eosinophils Absolute Auto 0.2 K/mm3 (0-0.3); Hematocrit 33.1 % (37.0-47.0); Hemoglobin 9.8 g/dL (12.0-15.0); Immature Granulocyte Absolute 0.35 K/mm3 (0.00-0.031); Immature Granulocyte Percent A 5.6 % (0-0.5); Lymphocytes Absolute Auto 1.21 K/mm3 (0.9-3.2); Lymphocytes Percent Auto 19.2 % (18.3-44.2); Mean Corpuscular HGB Conc 29.6 g/dl (32-36); Mean Corpuscular Hemoglobin 28.9 pg (26-34); Mean Corpuscular Volume 97.6 fl (80-100); Mean Platelet Volume 10.8 fl (7.4-10.4); Monocytes Absolute Auto 0.6 K/mm3 (0.1-0.6); Monocytes Percent Auto 9.8 % (2.6-8.5); Neutrophils Absolute Auto 3.9 K/mm3 (1.3-6.7); Neutrophils Percent Auto 61.8 % (45.5-73.1); Platelet Count Result 223 k/mm3 (150-375); Red Blood Count 3.39 M/mm3 (4.2-5.4); Red Cell Distribution Width 14.6 % (11.5-14.5); White Blood Count 6.3 K/mm3 (4.5-10.0)
[2023-05-24 07:10] LABS: Glucose Point of Care 108 mg/dl (65-105)
[2023-05-24 08:25] LABS: Glucose Point of Care 162 mg/dl (65-105)
--- NOTE | 2023-05-24 08:44 | PCPTNOTE ---
Attempted to see patient for PT, however patient reported not feeling well and nauseated, and refused therapy at this time. Patient having more involuntary movements this date.
[2023-05-24] MEDS: ONDANSETRON INJ 4 MG/2 ML VIAL IV PUSH (08:45)
[2023-05-24] MEDS: ASPIRIN 81 MG ENTERIC TABLET PO ×2 (08:46→18:03)
[2023-05-24] MEDS: APIXABAN 2.5 MG TABLET PO (08:46)
[2023-05-24] MEDS: METOPROLOL TARTRATE 50 MG TAB BY MOUTH ×2 (08:46→20:53)
[2023-05-24] MEDS: DULoxetine HCL 30 MG CAPSULE.DR PO ×2 (08:46→20:53)
[2023-05-24] MEDS: TERBINAFINE HCL 250 MG TABLET PO (08:46)
[2023-05-24] MEDS: lisinopriL 20 MG TABLET PO (08:46)
[2023-05-24] MEDS: BENZONATATE 100 MG CAPSULE 200 MG PO ×3 (08:46→18:02)
[2023-05-24] MEDS: BENZTROPINE MESYLATE 0.5 MG TABLET BY MOUTH ×3 (08:46→18:02)
[2023-05-24] MEDS: LACTULOSE 20 GM/30 ML UDC PO ×3 (08:48→18:02)
[2023-05-24] MEDS: polyethylene glycoL 3350 17 GM POWD.PACK PO (08:48)
[2023-05-24] MEDS: INSULIN GLARGINE (*BKC) 100 UNITS/ML 20 UNITS SUB-Q ×2 (08:55→18:03)
[2023-05-24] MEDS: MORPHINE SULFATE (*CRX) 4 MG/ML INJ IV PUSH (09:45)
--- NOTE | 2023-05-24 10:07 | PCOTNOTE ---
Per RN, no activity at this time. Patient getting a stat KUB, not doing well. No treatment this A.M.
[2023-05-24 12:07] LABS: Glucose Point of Care 139 mg/dl (65-105)
[2023-05-24] MEDS: HYDROmorphone HCL INJ (*CRX) 1 MG/ML SYR 0.5 MG IV PUSH (12:32)
--- NOTE | 2023-05-24 13:25 | PM.IMPN ---
Progress Note: A&P Assessment and Plan (1) Dyskinesia, tardive: Code(s): G24.01 - Drug induced subacute dyskinesia Status: Acute Assessment and Plan: Significant motive and verbal dyskinesia symptoms likely exacerbated by stopping quetiapine and clonidine the other day. IM Cogentin ordered. Restart home medications. (2) Metabolic encephalopathy: Code(s): G93.41 - Metabolic encephalopathy Status: Acute Assessment and Plan: Neurology has seen patient, EEG shows presence of diffuse background slowing and intermittent rhythmic delta activity suggestive of generalized encephalopathy. (3) Acute hypoxic respiratory failure: Code(s): J96.01 - Acute respiratory failure with hypoxia Status: Resolved Assessment and Plan: Presented with O2 sat of 87% on room air, currently on 3 L nasal cannula Likely secondary to influenza A Continue to wean O2 for an oxygen saturation greater than 92% Start incentive spirometry Chest x-ray revealed Perihilar bronchial wall thickening without evidence airspace opacities which could be due to bronchitis, reactive airway disease/asthma or mild pulmonary disease. 3/: patient is on 1 liter/minute nasal cannula. She was very drowsy this morning ordered ABG once she is off of her CPAP for the day. Later in the day oxygen had to be titrated up to 2 liters/minute. 3/2: unable to wean oxygen 92-96% 2 liters/minute nasal cannula. 3/: Weaned to room air today (4) Influenza A: Code(s): J10.1 - Influenza due to other identified influenza virus with other respiratory manifestations Status: Resolved Assessment and Plan: Respiratory panel positive for Influenza A Will start Tamiflu 05/20: Tessalon Perles added for cough (5) Neurogenic bladder: Code(s): N31.9 - Neuromuscular dysfunction of bladder, unspecified Status: Chronic Assessment and Plan: See above Chronic Vigil : Vigil changed (6) Fall: Code(s): W19.XXXA - Unspecified fall, initial encounter Status: Acute Assessment and Plan: Status post ground level fall Head CT showed stable 1.7 cm meningioma and left cerebellopontine angle Knee x-ray and tibia/fibula x-ray showing old internally fixed fracture of the distal right tibia and fibula near anatomic alignment, mild polyarticular OA at the right knee, ankle, and visualized foot. : Significant swelling and bruising to the right calf status post fall. 3/2: Worsened pain today, added IV Dilaudid p.r.n. pulse motor and sensation intact distally with increase in pain and right hip and right calf, compartments soft but tender to palpation (7) Diabetic neuropathy: Qualifiers: Diabetes mellitus type: type 2 Diabetes mellitus complication detail: diabetic polyneuropathy Qualified Code(s): E11.42 - Type 2 diabetes mellitus with diabetic polyneuropathy Code(s): E11.40 - Type 2 diabetes mellitus with diabetic neuropathy, unspecified Status: Chronic Assessment and Plan: ACHS fingerstick glucose with insulin home meds and SSI. (8) MALIA on CPAP: Code(s): G47.33 - Obstructive sleep apnea (adult) (pediatric); Z99.89 - Dependence on other enabling machines and devices Status: Chronic Assessment and Plan: CPAP ordered /: patient is tolerating PAP therapy at night (9) Benign essential HTN: Code(s): I10 - Essential (primary) hypertension Status: Chronic Assessment and Plan: Blood pressures ranging blood pressure 133/95 to 171/76 Restart lisinopril, clonidine, and metoprolol Blood pressure reviewed on 05/22, blood pressures occasionally more elevated systolic, continue home medication no acute intervention needed at this time. (10) Mixed hyperlipidemia: Code(s): E78.2 - Mixed hyperlipidemia Status: Chronic Assessment and Plan: Restart aspirin and atorvastatin (11) Morbid obesity with BMI of 40.
--- NOTE | 2023-05-24 14:04 | PCOTNOTE ---
Patient out of the room at this time. Per RN, Patient is down having an ultrasound, not to be seen this date.
--- NOTE | 2023-05-24 14:07 | PCPTNOTE ---
attempted to see pt for PT treatment. Discussed pt with ELLYN Buckner--HOLD PT due to pt going for more testing due to abdominal pain and increasing symptoms.
[2023-05-24] MEDS: BENZTROPINE MESYLATE INJ 1 MG/ML AMPUL IM (14:51)
[2023-05-24 17:24] LABS: Glucose Point of Care 125 mg/dl (65-105)
[2023-05-24] MEDS: PREGABALIN (*CRX) 50 MG CAPSULE 200 MG PO (18:02)
[2023-05-24] MEDS: cloNIDine HCL 0.1 MG TABLET PO (18:03)
[2023-05-24] MEDS: ATORVASTATIN 10 MG TABLET BY MOUTH (20:52)
[2023-05-24] MEDS: MEMANTINE HCL XR 28 MG CAP PO (20:52)
[2023-05-24] MEDS: DONEPEZIL HCL 10 MG TABLET PO (20:53)
[2023-05-24] MEDS: QUEtiapine FUMARATE 100 MG TABLET 200 MG PO (20:53)
[2023-05-24] MEDS: hydrALAZINE HCL 20 MG/ML VIAL 10 MG IV PUSH (22:30)
[2023-05-25] VITALS (7 sets, daily range): BP systolic 152–181; BP diastolic 63–89; PULSE 55–71; RESP 15–18; TEMP 36.4; O2SAT 92–96; BMI 43.4
[2023-05-25] MEDS: LACTATED RINGERS 1,000 ML 100 ML IV CONT ×2 (05:40→17:25)
[2023-05-25 05:46] LABS: Hematocrit 30.4 % (37.0-47.0); Hemoglobin 9.3 g/dL (12.0-15.0); Mean Corpuscular HGB Conc 30.6 g/dl (32-36); Mean Corpuscular Hemoglobin 29.6 pg (26-34); Mean Corpuscular Volume 96.8 fl (80-100); Mean Platelet Volume 10.4 fl (7.4-10.4); Platelet Count Result 239 k/mm3 (150-375); Red Blood Count 3.14 M/mm3 (4.2-5.4); Red Cell Distribution Width 14.8 % (11.5-14.5); White Blood Count 5.3 K/mm3 (4.5-10.0)
[2023-05-25 05:59] LABS: Glucose Point of Care 182 mg/dl (65-105)
[2023-05-25 06:14] LABS: Alanine Aminotransferase 22 U/L (6-35); Albumin Level 3.3 g/dL (3.5-5.1); Alkaline Phosphatase 82 U/L (38-126); Anion Gap 6 mmol/L (8-16); Aspartate Amino Transferase 23 U/L (14-36); Bilirubin,Total 0.5 mg/dL (0.2-1.3); Blood Urea Nitrogen 24 mg/dL (7-17); Calcium 9.1 mg/dL (8.4-10.2); Carbon Dioxide 25 mmol/L (22-30); Chloride 110 mmol/L (98-107); Estimated CRCL calculation 61 ml/min; Estimated Glomerular Filt Rate 49; Glucose 127 mg/dL (65-110); Potassium 3.5 mmol/L (3.4-5.0); Sodium 141 mmol/L (137-145)
[2023-05-25] MEDS: LINACLOTIDE 145 MCG CAPSULE 290 MCG PO (08:05)
[2023-05-25] MEDS: DULoxetine HCL 30 MG CAPSULE.DR PO ×2 (08:05→20:35)
[2023-05-25] MEDS: BENZTROPINE MESYLATE 0.5 MG TABLET BY MOUTH ×3 (08:05→17:25)
[2023-05-25] MEDS: PREGABALIN (*CRX) 50 MG CAPSULE 200 MG PO ×2 (08:05→17:25)
[2023-05-25] MEDS: cloNIDine HCL 0.1 MG TABLET PO ×3 (08:05→17:25)
[2023-05-25] MEDS: TERBINAFINE HCL 250 MG TABLET PO (08:05)
[2023-05-25] MEDS: APIXABAN 2.5 MG TABLET PO (08:05)
[2023-05-25] MEDS: QUEtiapine FUMARATE 100 MG TABLET 200 MG PO ×2 (08:05→20:35)
[2023-05-25] MEDS: lisinopriL 20 MG TABLET PO (08:05)
[2023-05-25] MEDS: ASPIRIN 81 MG ENTERIC TABLET PO ×2 (08:05→17:25)
[2023-05-25] MEDS: LACTULOSE 20 GM/30 ML UDC PO (08:06)
[2023-05-25] MEDS: METOPROLOL TARTRATE 50 MG TAB BY MOUTH ×2 (08:06→20:35)
[2023-05-25] MEDS: BENZONATATE 100 MG CAPSULE 200 MG PO ×3 (08:07→17:25)
[2023-05-25 08:21] LABS: Band Neutrophils Percent 5 % (0-6); Eosinophils Absolute Manual 0.15 K/mm3 (0.02-0.5); Eosinophils Percent Manual 3 % (0-4); Lymphocytes Absolute Manual 0.79 K/mm3 (1.1-4.5); Monocytes Absolute Manual 0.26 K/mm3 (0.1-0.90); Monocytes Percent Manual 5 % (3-9); Neutrophils Absolute Manual 4.08 K/mm3 (1.7-7.2); Neutrophils Percent Manual 72 % (46-73); Platelet Estimate Adequate (Adequate); Total Cells Counted 100
[2023-05-25 08:22] LABS: Atypical Lymphocytes Present; Hypochromasia 1+ (NORMAL); Schistocytes None Seen (NORMAL)
[2023-05-25 08:36] LABS: Glucose Point of Care 152 mg/dl (65-105)
[2023-05-25] MEDS: INSULIN GLARGINE (*BKC) 100 UNITS/ML 20 UNITS SUB-Q ×2 (08:56→17:28)
[2023-05-25] MEDS: ONDANSETRON INJ 4 MG/2 ML VIAL IV PUSH (09:59)
[2023-05-25 12:12] LABS: Glucose Point of Care 142 mg/dl (65-105)
--- NOTE | 2023-05-25 15:54 | P.PNIM_ITS ---
Progress Note: A&P Assessment and Plan (1) Dyskinesia, tardive: Code(s): G24.01 - Drug induced subacute dyskinesia Status: Acute Assessment and Plan: Significant motive and verbal dyskinesia symptoms likely exacerbated by stopping quetiapine and clonidine the other day. IM Cogentin ordered. Restart home medications. (2) Metabolic encephalopathy: Code(s): G93.41 - Metabolic encephalopathy Status: Acute Assessment and Plan: Neurology has seen patient, EEG shows presence of diffuse background slowing and intermittent rhythmic delta activity suggestive of generalized encephalopathy. (3) Acute hypoxic respiratory failure: Code(s): J96.01 - Acute respiratory failure with hypoxia Status: Resolved Assessment and Plan: * Presented with O2 sat of 87% on room air, currently on 3 L nasal cannula * Likely secondary to influenza A * Continue to wean O2 for an oxygen saturation greater than 92% * Start incentive spirometry * Chest x-ray revealed Perihilar bronchial wall thickening without evidence airspace opacities which could be due to bronchitis, reactive airway disease/asthma or mild pulmonary disease. 3: patient is on 1 liter/minute nasal cannula. She was very drowsy this morning ordered ABG once she is off of her CPAP for the day. Later in the day oxygen had to be titrated up to 2 liters/minute. 3/: unable to wean oxygen 92-96% 2 liters/minute nasal cannula. 3: Weaned to room air today (4) Influenza A: Code(s): J10.1 - Influenza due to other identified influenza virus with other respiratory manifestations Status: Resolved Assessment and Plan: * Respiratory panel positive for Influenza A * Will start Tamiflu 05/20: Tessalon Perles added for cough (5) Neurogenic bladder: Code(s): N31.9 - Neuromuscular dysfunction of bladder, unspecified Status: Chronic Assessment and Plan: * See above * Chronic Vigil : Vigil changed (6) Fall: Code(s): W19.XXXA - Unspecified fall, initial encounter Status: Acute Assessment and Plan: * Status post ground level fall * Head CT showed stable 1.7 cm meningioma and left cerebellopontine angle * Knee x-ray and tibia/fibula x-ray showing old internally fixed fracture of the distal right tibia and fibula near anatomic alignment, mild polyarticular OA at the right knee, ankle, and visualized foot. : Significant swelling and bruising to the right calf status post fall. 05/20: Worsened pain today, added IV Dilaudid p.r.n. pulse motor and sensation intact distally with increase in pain and right hip and right calf, compartments soft but tender to palpation (7) Diabetic neuropathy: Qualifiers: Diabetes mellitus type: type 2 Diabetes mellitus complication detail: diabetic polyneuropathy Qualified Code(s): E11.42 - Type 2 diabetes mellitus with diabetic polyneuropathy Code(s): E11.40 - Type 2 diabetes mellitus with diabetic neuropathy, unspecified Status: Chronic Assessment and Plan: ACHS fingerstick glucose with insulin home meds and SSI. (8) MALIA on CPAP: Code(s): G47.33 - Obstructive sleep apnea (adult) (pediatric); Z99.89 - Dependence on other enabling machines and devices Status: Chronic Assessment and Plan: * CPAP ordered 05/20: patient is tolerating PAP therapy at night (9) Benign essential HTN: Code(s): I10 - Essential (primary) hypertension Status: Chronic Assessment and Plan: * Blood pressures ranging blood pressure 133/95 to 171/76 * Restart lis
[2023-05-25 17:27] LABS: Glucose Point of Care 148 mg/dl (65-105)
[2023-05-25] MEDS: DONEPEZIL HCL 10 MG TABLET PO (20:35)
[2023-05-25] MEDS: MEMANTINE HCL XR 28 MG CAP PO (20:35)
[2023-05-25] MEDS: ATORVASTATIN 10 MG TABLET BY MOUTH (20:35)
[2023-05-25 20:49] LABS: Glucose Point of Care 125 mg/dl (65-105)
[2023-05-26 00:58] VITALS: PULSE 59; RESP 15; O2SAT 97
[2023-05-26] MEDS: LACTATED RINGERS 1,000 ML 100 ML IV CONT (03:52)
[2023-05-26 04:34] VITALS: BP 134/70; PULSE 61; RESP 18; TEMP 36.4; O2SAT 94
[2023-05-26 06:59] LABS: Hematocrit 29.7 % (37.0-47.0); Hemoglobin 8.9 g/dL (12.0-15.0); Mean Corpuscular Hemoglobin 29.6 pg (26-34); Mean Corpuscular Volume 98.7 fl (80-100); Mean Platelet Volume 10.2 fl (7.4-10.4); Platelet Count Result 223 k/mm3 (150-375); Red Blood Count 3.01 M/mm3 (4.2-5.4); Red Cell Distribution Width 15.3 % (11.5-14.5); White Blood Count 4.3 K/mm3 (4.5-10.0)
[2023-05-26 07:04] LABS: Alanine Aminotransferase 20 U/L (6-35); Albumin Level 2.9 g/dL (3.5-5.1); Alkaline Phosphatase 75 U/L (38-126); Anion Gap 2 mmol/L (8-16); Aspartate Amino Transferase 20 U/L (14-36); Bilirubin,Total 0.6 mg/dL (0.2-1.3); Blood Urea Nitrogen 26 mg/dL (7-17); Calcium 8.8 mg/dL (8.4-10.2); Carbon Dioxide 29 mmol/L (22-30); Chloride 109 mmol/L (98-107); Estimated CRCL calculation 52 ml/min; Estimated Glomerular Filt Rate 41; Glucose 112 mg/dL (65-110); Magnesium 1.9 mg/dL (1.6-2.3); Potassium 3.6 mmol/L (3.4-5.0); Sodium 140 mmol/L (137-145)
[2023-05-26 07:12] LABS: Triiodothyronine T3 Free 1.8 pg/mL (2.3-4.2)
[2023-05-26 08:01] LABS: Band Neutrophils Percent 9 % (0-6); Eosinophils Absolute Manual 0.21 K/mm3 (0.02-0.5); Eosinophils Percent Manual 5 % (0-4); Lymphocytes Absolute Manual 0.86 K/mm3 (1.1-4.5); Metamyelocytes Percent 1 %; Monocytes Absolute Manual 0.12 K/mm3 (0.1-0.90); Monocytes Percent Manual 3 % (3-9); Neutrophils Absolute Manual 3.05 K/mm3 (1.7-7.2); Neutrophils Percent Manual 62 % (46-73); Total Cells Counted 100
[2023-05-26 08:02] LABS: Hypochromasia 1+ (NORMAL); Platelet Estimate Adequate (Adequate); Schistocytes None Seen (NORMAL)
[2023-05-26 08:17] LABS: Glucose Point of Care 115 mg/dl (65-105)
[2023-05-26] MEDS: INSULIN GLARGINE (*BKC) 100 UNITS/ML 20 UNITS SUB-Q (08:49)
[2023-05-26] MEDS: lisinopriL 20 MG TABLET PO (08:54)
[2023-05-26] MEDS: BENZTROPINE MESYLATE 0.5 MG TABLET BY MOUTH ×2 (08:54→12:11)
[2023-05-26] MEDS: HYDROcodone/acetaminophen (*CRX) 5-325 MG TABLET 1 TAB PO (08:54)
[2023-05-26] MEDS: DULoxetine HCL 30 MG CAPSULE.DR PO (08:54)
[2023-05-26 08:55] VITALS: PULSE 74
[2023-05-26] MEDS: ASPIRIN 81 MG ENTERIC TABLET PO (08:55)
[2023-05-26] MEDS: QUEtiapine FUMARATE 100 MG TABLET 200 MG PO (08:55)
[2023-05-26] MEDS: PREGABALIN (*CRX) 50 MG CAPSULE 200 MG PO (08:55)
[2023-05-26] MEDS: LINACLOTIDE 145 MCG CAPSULE 290 MCG PO (08:55)
[2023-05-26] MEDS: cloNIDine HCL 0.1 MG TABLET PO ×2 (08:55→12:11)
[2023-05-26] MEDS: METOPROLOL TARTRATE 50 MG TAB BY MOUTH (08:55)
[2023-05-26] MEDS: LACTULOSE 20 GM/30 ML UDC PO (08:56)
[2023-05-26] MEDS: BENZONATATE 100 MG CAPSULE 200 MG PO ×2 (08:56→12:11)
[2023-05-26] MEDS: TERBINAFINE HCL 250 MG TABLET PO (08:56)
[2023-05-26] MEDS: APIXABAN 2.5 MG TABLET PO (08:56)
[2023-05-26 12:10] LABS: Glucose Point of Care 129 mg/dl (65-105)
--- NOTE | 2023-05-26 13:23 | PM.DS ---
DS: Admitting Diagnosis Discharge Date 05/26/23 Admitting Diagnosis 1. Falls 2. Confusion DS: Discharge Diagnosis Discharge Diagnosis (1) Dyskinesia, tardive: Code(s): G24.01 - Drug induced subacute dyskinesia Status: Acute Assessment and Plan: Significant motive and verbal dyskinesia symptoms likely exacerbated by stopping quetiapine and clonidine the other day. IM Cogentin ordered. Restart home medications. (2) Metabolic encephalopathy: Code(s): G93.41 - Metabolic encephalopathy Status: Acute Assessment and Plan: Neurology has seen patient, EEG shows presence of diffuse background slowing and intermittent rhythmic delta activity suggestive of generalized encephalopathy. 05/26/23: Discussed with Neurology; No further interventions needed. (3) Acute hypoxic respiratory failure: Code(s): J96.01 - Acute respiratory failure with hypoxia Status: Resolved Assessment and Plan: Presented with O2 sat of 87% on room air, currently on 3 L nasal cannula Likely secondary to influenza A Continue to wean O2 for an oxygen saturation greater than 92% Start incentive spirometry Chest x-ray revealed Perihilar bronchial wall thickening without evidence airspace opacities which could be due to bronchitis, reactive airway disease/asthma or mild pulmonary disease. 3/: patient is on 1 liter/minute nasal cannula. She was very drowsy this morning ordered ABG once she is off of her CPAP for the day. Later in the day oxygen had to be titrated up to 2 liters/minute. 3/2: unable to wean oxygen 92-96% 2 liters/minute nasal cannula. 3/: Weaned to room air today 05/26/23: stable on AA (4) Influenza A: Code(s): J10.1 - Influenza due to other identified influenza virus with other respiratory manifestations Status: Resolved Assessment and Plan: Respiratory panel positive for Influenza A Will start Tamiflu 3: Tessalon Perles added for cough (5) Neurogenic bladder: Code(s): N31.9 - Neuromuscular dysfunction of bladder, unspecified Status: Chronic Assessment and Plan: See above Chronic Vigil : Vigil changed (6) Fall: Code(s): W19.XXXA - Unspecified fall, initial encounter Status: Acute Assessment and Plan: Status post ground level fall Head CT showed stable 1.7 cm meningioma and left cerebellopontine angle Knee x-ray and tibia/fibula x-ray showing old internally fixed fracture of the distal right tibia and fibula near anatomic alignment, mild polyarticular OA at the right knee, ankle, and visualized foot. : Significant swelling and bruising to the right calf status post fall. 05/20: Worsened pain today, added IV Dilaudid p.r.n. pulse motor and sensation intact distally with increase in pain and right hip and right calf, compartments soft but tender to palpation (7) Diabetic neuropathy: Qualifiers: Diabetes mellitus complication detail: diabetic polyneuropathy Diabetes mellitus type: type 2 Qualified Code(s): E11.42 - Type 2 diabetes mellitus with diabetic polyneuropathy Code(s): E11.40 - Type 2 diabetes mellitus with diabetic neuropathy, unspecified Status: Chronic Assessment and Plan: ACHS fingerstick glucose with insulin home meds and SSI. (8) MALIA on CPAP: Code(s): G47.33 - Obstructive sleep apnea (adult) (pediatric); Z99.89 - Dependence on other enabling machines and devices Status: Chronic Assessment and Plan: CPAP ordered 05/20: patient is tolerating PAP therapy at night (9) Benign essential HTN: Code(s): I10 - Essential (primary) hypertension Status: Chronic Assessment and Plan: Blood pressures ranging blood pressure 133/95 to 171/76 Restart lisinopril, clonidine, and metoprolol Blood pressure reviewed on 05/22, blood pressures occasionally more elevated systolic, continue home medication no acute intervention needed at this time. (10) Arlene
[2023-05-26 14:00] VITALS: BP 119/75; PULSE 73; RESP 20; TEMP 36.6; O2SAT 95
== END 2023-05-26 15:32 | disposition home health service (06) | DRG 698 ==
LOC: ANHED 11:22 → ANH3MEDSUR 13:38 → ANH3MED 14:37
PROVIDERS: Nurse Practitioner; Nurse Practitioner Acute Care; Psychiatry & Neurology Neurology; Admitting Provider Internal Medicine; Emergency Provider Emergency Medicine; PCP Family Medicine; Visit Provider Internal Medicine
DX: T83.511A Infection and inflammatory reaction due to indwelling urethral catheter, initial encounter (principal); G93.41 Metabolic encephalopathy; J96.01 Acute respiratory failure with hypoxia; F32.3 Major depressive disorder, single episode, severe with psychotic features; Z68.41 Body mass index [BMI] 40.0-44.9, adult; E66.2 Morbid (severe) obesity with alveolar hypoventilation; N39.0 Urinary tract infection, site not specified; J10.1 Influenza due to other identified influenza virus with other respiratory manifestations; I12.9 Hypertensive chronic kidney disease with stage 1 through stage 4 chronic kidney disease, or unspecified chronic kidney disease; N18.30 Chronic kidney disease, stage 3 unspecified; E11.22 Type 2 diabetes mellitus with diabetic chronic kidney disease; E11.40 Type 2 diabetes mellitus with diabetic neuropathy, unspecified; E11.43 Type 2 diabetes mellitus with diabetic autonomic (poly)neuropathy; K31.84 Gastroparesis; N31.9 Neuromuscular dysfunction of bladder, unspecified; E01.8 Other iodine-deficiency related thyroid disorders and allied conditions; E78.2 Mixed hyperlipidemia; E55.9 Vitamin D deficiency, unspecified; D32.0 Benign neoplasm of cerebral meninges; R27.8 Other lack of coordination; R19.7 Diarrhea, unspecified; M10.9 Gout, unspecified; Z20.822 Contact with and (suspected) exposure to COVID-19; S80.11XA Contusion of right lower leg, initial encounter; G89.29 Other chronic pain; G24.01 Drug induced subacute dyskinesia; G31.84 Mild cognitive impairment of uncertain or unknown etiology; F03.90 Unspecified dementia, unspecified severity, without behavioral disturbance, psychotic disturbance, mood disturbance, and anxiety; F41.9 Anxiety disorder, unspecified; Z79.4 Long term (current) use of insulin; Z79.82 Long term (current) use of aspirin; Z79.01 Long term (current) use of anticoagulants; W19.XXXA Unspecified fall, initial encounter
CPT/HCPCS: 36415; 36600; 70450; 71045; 71275; 73562; 73590; 74177; 76705; 80053; 81001; 82140; 82306; 82375; 82607; 82746; 82805; 82948; 83036; 83050; 83605; 83735; 83880; 84439; 84443; 84480; 84481; 85025; 85055; 85610; 85730; 86140; 87040; 87086; 87637; 93005; 93970; 95816; 96365; 96367; 97110; 97161; 97165; 97530; 97535; 99285; A9270; C8929; G0378; J0360; J0456; J0515; J0692; J0696; J1170; J1815; J2270; J2405; J7120; Q9957; Q9967

== ENCOUNTER 2023-06-28 10:22 | Observation (INO) | payer MEDICARE, OTHER, SELFPAY ==
[2023-06-28] VITALS (10 sets, daily range): BP systolic 101–163; BP diastolic 49–79; PULSE 56–68; RESP 12–18; TEMP 36.1–36.9; O2SAT 95–100; BMI 37.0
--- NOTE | ~2023-06-28 | CT_ITS ---
Noncontrast CT scan of the cervical spine Technique: Multiple contiguous axial [address] images of the cervical spine were obtained and rec onstructed in 2D sagittal and coronal planes on the acquisition scanner. Dose reduction technique was used on this scan by utilizing automated exposure control, adjustment of the mA and/or kV according to patient size. The dose-length product (DLP) was 725.13 mGy-cm. Clinical History: Pain Findings: No fractures or dislocations. There is advanced degenerative change at the articulation of the odontoid process with the anterior arch of C1. There is fusion of the left C2-C3 facet joint. Th ere is extensive facet arthropathy throughout the remainder of the cervical spine. There is bilateral neural foraminal narrowing at C5-C6 and C6-C7. No prevertebral soft tissue swelling. Impression: No fracture or subluxation of the cervical spine. Degenerative change, as above. Reviewed, dictated and finalized at [facility]. Impression: No fracture or subluxation of the cervical spine. Degenerative change, as above.
--- NOTE | ~2023-06-28 | US_ITS ---
US renal BI 06/29/2023 15:52 Procedure: Realtime transabdominal ultrasound of the kidneys and bladder. Indication: Acute renal insufficiency Comparison: No prior studies for comparison. Findings: There is right renal atrophy. No hydronephrosis or solid mass. The right kidney measures 9. 9 cm and left kidney measures 11.3 cm. There are multiple left renal cysts, largest measuring 1.6 cm. There is a Vigil catheter in the bladder. Impression: 1: Right renal atrophy. 2: Left renal cysts, largest measuring 1.6 cm. Reviewed, dictated and finalized at location A. Impression: 1: Right renal atrophy. 2: Left renal cysts, largest measuring 1.6 cm.
--- NOTE | ~2023-06-28 | CT_ITS ---
EXAMINATION: CT lumbar spine wo con DATE: 06/28/2023 12:12 INDICATION: Fall. TECHNIQUE: Computed tomography (CT) of the lumbar spine was performed without intravenous contrast. A utomated exposure control and iterative reconstruction technique were employed. The dose-length produ ct was 1587.73 mGy-cm. COMPARISON: None FINDINGS: There is 5 degrees dextrocurvature of lumbar spine. There are changes of anterior and poste rior fusion procedures from L4 to S1 with interbody devices and pedicle screws. Vertebral body height s are normal. There is severely decreased disc height at L1-L2 and L2-L3 and mildly decreased disc he ight at L3-L4. The following disc levels are specifically discussed: L1-L2: The disc is bulging. There is moderate bilateral facet joint osteoarthritis. There is mild nathanael ateral neural foraminal stenosis. There is mild central canal stenosis. L2-L3: The disc is bulging. There is severe right and moderate left facet joint osteoarthritis. There is mild bilateral neural foraminal stenosis. There is mild central canal stenosis. L3-L4: The disc is bulging. There is ankylosis of the facet joints with moderate hypertrophy. There i s mild bilateral neural foraminal stenosis. There is mild central canal stenosis. L4-L5: There is mild bilateral facet joint hypertrophy. There is mild bilateral neural foraminal sten osis. There is no central canal stenosis. There is posterior decompression. L5-S1: There is mild bilateral facet joint hypertrophy. There is mild bilateral neural foraminal sten osis. There is no central canal stenosis. There is posterior decompression. IMPRESSION: 1. No fracture. 2. Severe lumbar spondylosis. 3. Anterior and posterior fusion procedures and L4-S1. Reviewed, dictated and finalized at location A.
--- NOTE | ~2023-06-28 | CT_ITS ---
Non-contrast Head CT History: Status post fall COMPARISON: 05/18/2023 Technique: Axial non-contrast imaging of the brain was performed. Dose reduction technique was used on this scan by utilizing automated exposure control and iterative reconstruction technique. The dose -length product (DLP) was 681.00 mGy-cm. Findings: There is no evidence of intracranial hemorrhage or acute infarct. Stable presumed meningio ma at the left CP angle. Brain parenchyma appears normal. The ventricles and subarachnoid spaces ar e normal in size. The calvarium appears normal. The visualized paranasal sinuses and mastoid air ce lls are clear. Impression: No acute abnormality seen. Stable meningioma left CP angle region. Reviewed, dictated and finalized at location . Impression: No acute abnormality seen. Stable meningioma left CP angle region.
--- NOTE | ~2023-06-28 | XR_ITS ---
Left Knee Technique: AP, lateral, and sunrise views were obtained. Clinical History: Pain Findings: No fracture or dislocation is seen. There is severe tricompartmental osteophytes, with medi al compartment narrowing in particular. There is extensive osteophyte formation. Old, healed fracture of the proximal fibular shaft noted. Soft tissues are unremarkable. No joint effusion is seen. Impression: No acute abnormality evident. Advanced tricompartmental osteoarthritis, as detailed above. Reviewed, dictated and finalized at location M. Impression: No acute abnormality evident. Advanced tricompartmental osteoarthritis, as detailed above.
--- NOTE | ~2023-06-28 | XR_ITS ---
Right Knee Technique: AP, lateral, and sunrise views were obtained. Clinical History: Pain Findings: No fracture or dislocation is seen. Osseous alignment is anatomic. There is mild to moderat e degenerative change of the knee. Soft tissues are unremarkable. No joint effusion is seen. Impression: [id number] degenerative change. Reviewed, dictated and finalized at location . Impression: [id number] degenerative change.
--- NOTE | ~2023-06-28 | XR_ITS ---
Portable chest x-ray Comparison: 05/18/2023 Clinical History: Status post fall Findings: Lungs are clear, without focal consolidation or pleural effusion. Cardiomediastinal silho uette is stable. Bones and soft tissues are unremarkable. Impression: Clear lungs. Reviewed, dictated and finalized at location . Impression: Clear lungs.
--- NOTE | ~2023-06-28 | CT_ITS ---
EXAMINATION: CT pelvis wo con DATE: 06/28/2023 12:12 INDICATION: Right hip and buttock pain post fall TECHNIQUE: High resolution computed tomography (CT) of the pelvis was performed without intravenous c ontrast. Additional sagittal and coronal reconstructions were performed. Automated exposure control a nd iterative reconstruction technique were employed. The dose-length product was 954.22 mGy-cm. COMPARISON: CT chest, abdomen and pelvis dated 05/24/2023 FINDINGS: Combined instrumented anterior and posterior L4-S1 spinal fusion with interbody bone graft cages at b oth levels and bilateral vertical ravindra and pedicle screw fixation. There is suggestion of posterior fu forrest across the facet joints without internal fixation at least on the left and possibly on the right at L3-L4. No fractures identified. There is moderate bilateral sacroiliac osteoarthritis. There is a lso mild bilateral hip osteoarthritis, mild on the left and moderate to severe on the right with hype rtrophic change and prominent marginal osteophyte at both lung the right acetabulum and right femoral head. No hip joint effusions or other abnormal fluid collections. Vigil catheter within the partiall y decompressed bladder. The uterus is not identified and has likely been surgically resected. There a re few diverticula along the distal descending colon without adjacent from trace stranding to suggest diverticulitis. Remainder of the visualized bowels are unremarkable. No pathologically enlarged pelv ic, inguinal or lower abdominal lymphadenopathy. IMPRESSION: 1. No acute osseous abnormality. 2. Polyarticular osteoarthritis, mild at the left hip, moderate at the bilateral sacralized joints an d moderate to severe with prominent hypertrophic changes at the right hip. 3. Combined instrumented L4-S1 anterior and posterior spinal fusion with noninstrumented posterior sp inal fusion extending cephalad to L3-L4. Reviewed, dictated and finalized at location B. IMPRESSION: 1. No acute osseous abnormality. 2. Polyarticular osteoarthritis, mild at the left hip, moderate at the bilatera l sacralized joints and moderate to severe with prominent hypertrophic changes at the right hip. 3. Combined instrumented L4-S1 anterior and posterior spinal fusion with nonins trumented posterior spinal fusion extending cephalad to L3-L4.
--- NOTE | 2023-06-28 10:46 | ED.FALL ---
HPI - Fall General Chief Complaint: Fall <Rabia Chester PA-C - Last Filed: 06/28/23 14:23> Stated Complaint: fall yesterday <Rabia Chester PA-C - Last Filed: 06/28/23 14:23> Time Seen by Provider: 06/28/23 10:32 <Rabia Chester PA-C - Last Filed: 06/28/23 14:23> History of Present Illness HPI Narrative: 68-year-old female with a history of chronic pain, TD, insulin-dependent diabetes, hypertension presents to the emergency department with her daughter/caregiver at bedside for evaluation after a fall that occurred last night. Patient's daughter cyst with history. States patient was attempting to get up out of the kitchen chair when she misstepped and fell to the ground. The patient is reporting pain to her right buttock, back and bilateral knees. States she normally ambulates with a walker but has not been able to ambulate since the fall secondary to pain. She has a chronic indwelling Vigil catheter which he says is been draining normally. Denies dysuria, hematuria, cloudy urine, abdominal pain, headache, vision changes, focal numbness or weakness. Denies neck pain. States she did not hit her head or lose consciousness. She is lethargic on presentation and intermittently falling asleep during the interview. She is arousable to verbal stimuli. States that she is very tired because she did not sleep last night due to the pain. She also appears very dry on exam but does state she has been eating and drinking well. <Rabia Chester PA-C - Last Filed: 06/28/23 14:23> Related Data Home Medications: Home Medications Medication Instructions Recorded Confirmed quetiapine 200 mg tablet 200 mg PO BID 07/27/19 06/14/23 acetaminophen 500 mg tablet 1,000 mg PO BID Pain 07/10/20 06/14/23 (Tylenol Extra Strength) multivit with minerals-iron 18 1 tablet PO DAILY 03/06/21 06/14/23 mg-folic ac 400 mcg-vit K 25 mcg tablet (Adults Multivitamin) aspirin 81 mg tablet,delayed 81 mg PO BID 10/30/21 06/14/23 release apixaban 2.5 mg tablet (Eliquis) 2.5 mg PO DAILY 05/18/23 06/14/23 artificial tears solution eye drops 1 drp ophthalmic (eye) PRN PRN Dry 05/18/23 06/14/23 Eye(S) cholecalciferol (vitamin D3) 1,250 1,250 mcg PO WEEKLY 05/18/23 06/14/23 mcg (50,000 unit) tablet clonidine HCl 0.1 mg tablet 0.1 mg PO TID 05/18/23 06/14/23 clotrimazole-betamethasone 1 1 applic topical BID 05/18/23 06/14/23 %-0.05 % topical cream dextrin 3 gram/4 gram oral powder 2 tsp PO TID 05/18/23 06/14/23 (Clear Fiber) insulin glargine 100 unit/mL (3 40 unit subcut BID 05/18/23 06/14/23 mL) subcutaneous pen (Basaglar KwikPen U-100 Insulin) lactobacillus combination no.8 3 See Rx Instructions .Route .COMPLEX 05/18/23 06/14/23 billion cell capsule lactulose 10 gram/15 mL oral 20 g PO DAILY 05/18/23 06/14/23 solution linaclotide 290 mcg capsule 290 mcg PO DAILY 05/18/23 06/14/23 (Linzess) lisinopril 20 mg tablet 20 mg PO DAILY 05/18/23 06/14/23 memantine ER 28 mg-donepezil 10 mg 1 cap PO HS 05/18/23 06/14/23 capsule sprinkle,ext.release 24 hr (Namzaric) terbinafine HCl 250 mg tablet 250 mg PO DAILY 05/18/23 06/14/23 pregabalin 100 mg capsule 100 mg PO TID 06/14/23 06/14/23 <Rabia Chester PA-C - Last Filed: 06/28/23 14:23> Allergies/Adverse Reactions: Allergies Allergy/AdvReac Type Severity Reaction Status Date / Time ciprofloxacin Allergy Mild Hives Verified 06/28/23 10:23 metronidazole Allergy Mild Hives Verified 06/28/23 10:23 divalproex sodium Allergy Unknown Unknown Verified 06/28/23 10:23 vancomycin Allergy Unknown Unknown Verified 06/28/23 10:23 <Rabia Chester PA-C - Last Filed: 06/28/23 14:23> Review of Systems Review of Systems: CONSTITUTIONAL: Denies fever, chills, or sweats. EYES: Denies visual changes, redness, or discharge. ENT: Denies rhinorrhea, congestion, sore throat, or otalgia. CARDIOVASCULAR: Denies chest pain, palpitations, or edema. RESPIRATO
--- NOTE | 2023-06-28 10:56 | ECG_ITS ---
Measurements Intervals [place] Rate: 67 P: 39 NV: 214 QRS: -5 QRSD: 120 T: 19 QT: 375 Avg RR: 895 QTc: 390 QTcB: 396 QTcF: 389 Interpretive Statements SINUS RHYTHM WITH FIRST DEGREE AV BLOCK MODERATE INTRAVENTRICULAR CONDUCTION DELAY (110+ ms QRS DURATION) BASELINE ARTIFACT ABNORMAL ECG SEE SCANNED COPY FOR SIGNATURE MTDD
[2023-06-28] MEDS: SODIUM CHLORIDE 0.9% IV 1,000 ML 999 ML IV CONT ×2 (11:22→12:58)
[2023-06-28 11:28] LABS: Basophils Percent Auto 0.6 % (0.2-1.2); Eosinophils Absolute Auto 0.2 K/mm3 (0-0.3); Eosinophils Percent Auto 3.9 % (0-4.4); Hematocrit 36.1 % (37.0-47.0); Immature Granulocyte Absolute 0.02 K/mm3 (0.00-0.031); Immature Granulocyte Percent A 0.4 % (0-0.5); Lymphocytes Absolute Auto 1.44 K/mm3 (0.9-3.2); Mean Corpuscular HGB Conc 30.5 g/dl (32-36); Mean Corpuscular Hemoglobin 29.3 pg (26-34); Mean Platelet Volume 11.4 fl (7.4-10.4); Monocytes Absolute Auto 0.5 K/mm3 (0.1-0.6); Monocytes Percent Auto 9.6 % (2.6-8.5); Neutrophils Absolute Auto 3.1 K/mm3 (1.3-6.7); Neutrophils Percent Auto 58.5 % (45.5-73.1); Platelet Count Result 178 k/mm3 (150-375); Red Blood Count 3.76 M/mm3 (4.2-5.4); Red Cell Distribution Width 15.9 % (11.5-14.5); White Blood Count 5.3 K/mm3 (4.5-10.0)
[2023-06-28 11:38] LABS: INR 1.2
[2023-06-28 11:39] LABS: Partial Thromboplastin Time 28.2 Seconds (22.3-36.8)
[2023-06-28 12:00] LABS: Lactic Acid Reflex 1.1 mmol/L (0.7-2.0)
[2023-06-28 12:00] LABS: Appearance Urine Turbid (Clear); Bacteria Urine 3+ /hpf; Bilirubin Urine Negative (Negative); Blood Urine 2+ (Negative); Budding Yeast Urine Present /hpf; Color Urine Yellow (Yellow); Glucose Urine UA Negative (Negative); Ketones Urine Negative (Negative); Leukocyte Esterase Ur 3+ LEU/UL (Negative); Nitrate Urine Positive (Negative); Protein Urine 1+ mg/dL (Negative); Specific Grav Ur 1.012 (1.001-1.035); Squamous Epithelial Cell Urine None Seen /hpf (Few); Urobilinogen Urine 0.2 mg/dL (<2.0); WBC Urine >100 /hpf (0-3)
[2023-06-28 12:02] LABS: Add Urine Microscopic? YES
[2023-06-28 12:07] LABS: Amphetamine Screen Urine Negative (Negative); Barbiturate Screen Urine Negative (Negative); Benzodiazepines Screen Urine Negative (Negative); Cannabinoid Screen Urine Negative (Negative); Cocaine Screen Urine Negative (Negative); Methadone Screen Urine Negative (Negative); Opiate Screen Urine Negative (Negative); Phencyclidine Screen Urine Negative (Negative)
[2023-06-28 12:11] LABS: Alanine Aminotransferase 17 U/L (6-35); Albumin Level 3.7 g/dL (3.5-5.1); Alkaline Phosphatase 91 U/L (38-126); Anion Gap 7 mmol/L (4-12); Aspartate Amino Transferase 21 U/L (14-36); Bilirubin,Total 0.4 mg/dL (0.2-1.3); Blood Urea Nitrogen 77 mg/dL (7-17); Calcium 9.8 mg/dL (8.4-10.2); Carbon Dioxide 25 mmol/L (22-30); Chloride 106 mmol/L (98-107); Estimated CRCL calculation 28 ml/min; Estimated Glomerular Filt Rate 21; Glucose 86 mg/dL (65-110); Potassium 5.1 mmol/L (3.4-5.0); Sodium 138 mmol/L (137-145)
[2023-06-28 12:14] LABS: Influenza A QL RT-PCR Negative (Negative); Influenza B QL RT-PCR Negative (Negative); RSV RNA, RT-PCR Negative (Negative); SARS-CoV-2 RNA PCR Negative (Negative)
--- NOTE | 2023-06-28 12:16 | PC.NURSE ---
Pt to CT scan & Xray via stretcher at this time.
[2023-06-28] MEDS: MORPHINE SULFATE (*CRX) 2 MG/ML INJ IV PUSH (12:58)
[2023-06-28] MEDS: SODIUM CHLORIDE 0.9% IV 1,000 ML 100 ML IV CONT (14:52)
--- NOTE | 2023-06-28 15:29 | PM.IMHP ---
H&P: HPI History of Present Illness Date/Time: 06/28/23 15:29 Chief Complaint: Fall, possible UTI Narrative: Patient is a 68-year-old female who presented emergency room for a fall. Patient states that she was in the kitchen and tripped and fell on to her right hip. she denies hitting her head and she was able to crawl to her bedroom and pull herself. She says she usually walks with a walker. although she has a history of dementia she answers most questions appropriately. She is unsure why she is on the Eliquis and I called her daughter who was also unsure. They suspect it is to prevent blood clots but states that she has no history of AFib or history of blood clots. The patient denies nausea, vomiting, fevers, chills, diarrhea, constipation, chest pain, shortness of breath or abdominal pain. She does look dehydrated and she states that she has not had any changes in her diet and is drinking water. The daughter states that she recently had a UTI a couple weeks ago and was switched to a new antibiotic within the last week and they are unsure which antibiotic that is but says that she sees [facility]. Patient states that her hip still hurts but overall she is doing okay. Review of Systems Review of Systems: All systems reviewed & are unremarkable except as noted in HPI and below PMFSH Past Medical History Medical History Abnormality of gait and mobility Acute appendicitis with localized peritonitis Acute vulvitis Adverse effect of unspecified antipsychotics and neuroleptics, sequela Antipsychotic-induced akathisia Anxiety Arm pain, right Asterixis Benign essential HTN Benign essential hypertension Benzodiazepine abuse, continuous Body mass index [BMI] 39.0-39.9, adult (11/12/16) Brain hypoxia Candidiasis, intertriginous Chronic kidney disease due to diabetes mellitus Chronic kidney disease, stage III (moderate) Chronic pain disorder Cognitive impairment Confusion Dependence on other enabling machines and devices Depressive type psychosis Diabetic nephropathy associated with type 2 diabetes mellitus Diabetic neuropathy Dietary counseling and surveillance (03/02/18) Dyskinesia, tardive RAMAN (generalized anxiety disorder) RAMAN (generalized anxiety disorder) Gait abnormality Gastroparesis Gout Iodine hypothyroidism Left lateral knee pain Lethargy shelter (current) use of insulin Metabolic encephalopathy Mild cognitive impairment with memory loss Mixed hyperlipidemia Morbid obesity with BMI of 40.0-44.9, adult Neuroleptic-induced tardive dyskinesia Obesity hypoventilation syndrome Opioid abuse with intoxication with complication MALIA on CPAP Polypharmacy Post-menopausal Severe recurrent major depressive disorder with psychotic features Type 2 diabetes mellitus with diabetic neuropathy, with long-term current use of insulin Type 2 diabetes mellitus with hyperglycemia Type 2 diabetes mellitus with stage 3 chronic kidney disease Unspecified acute appendicitis Urticaria due to drug allergy Vitamin D deficiency, unspecified Wrist pain, right Surgical History Surgical History (Updated 06/28/23 @ 19:23 by Kalpana Dave PA-C) Previous back surgery Family History Family History Father Diabetes mellitus Hypertension Patient's father is , Onset Age: 75 Family history of renal failure Mother Family history of malignant neoplasm of stomach Other Family history of arthritis Social History Social History Social History: Smoking status: Never smoker Second hand tobacco smoke exposure: No Alcohol intake: never Substance use: never Substance use type: marijuana Other substance usage details: hx of marijuana use 2022 Do You Feel Safe in your Home?: Yes Lack of Transporta
[2023-06-28 16:39] LABS: Glucose Point of Care 61 mg/dl (65-105)
[2023-06-28 16:39] LABS: Glucose Point of Care 53 mg/dl (65-105)
--- NOTE | 2023-06-28 17:05 | PC.NURSE ---
[facility] [address] Admission Note: arrived to room #324 at approximately 1615pm. Oriented and able to follow simple commands. Complaints of feeling tired. Blood glucose checked and low (53). 4oz of orange juice given. Tolerated well. States that she had not had anything to eat since the night before. The patient,Christine Michel,68 y/o, was given written information regarding hospital policies, unit procedures and contact persons. Patient's smoking status: Never smoker.
[2023-06-28 17:06] LABS: Glucose Point of Care 81 mg/dl (65-105)
[2023-06-28 17:21] LABS: Glucose Point of Care 99 mg/dl (65-105)
[2023-06-28 20:14] LABS: Glucose Point of Care 112 mg/dl (65-105)
[2023-06-28] MEDS: QUEtiapine FUMARATE 100 MG TABLET 200 MG PO (20:23)
[2023-06-28] MEDS: traMADol HCL (*CRX) 50 MG TABLET PO (20:23)
[2023-06-28] MEDS: PREGABALIN (*CRX) 50 MG CAPSULE 100 MG PO (20:23)
[2023-06-28] MEDS: ASPIRIN 81 MG ENTERIC TABLET PO (20:24)
[2023-06-28] MEDS: METOPROLOL TARTRATE 50 MG TAB BY MOUTH (20:24)
[2023-06-28] MEDS: DULoxetine HCL 30 MG CAPSULE.DR BY MOUTH (20:24)
[2023-06-28] MEDS: ACETAMINOPHEN 500 MG TABLET 1000 MG PO (20:24)
[2023-06-29] MEDS: SODIUM CHLORIDE 0.9% IV 1,000 ML 100 ML IV CONT ×2 (02:08→10:49)
[2023-06-29 04:50] LABS: Glucose Point of Care 72 mg/dl (65-105)
[2023-06-29 05:50] LABS: Glucose Point of Care 93 mg/dl (65-105)
[2023-06-29 06:00] VITALS: BP 142/54; PULSE 61; RESP 14; TEMP 36.5; O2SAT 97
[2023-06-29 06:15] LABS: Hematocrit 36.8 % (37.0-47.0); Hemoglobin 11.2 g/dL (12.0-15.0); Mean Corpuscular HGB Conc 30.4 g/dl (32-36); Mean Corpuscular Hemoglobin 29.9 pg (26-34); Mean Corpuscular Volume 98.1 fl (80-100); Mean Platelet Volume 11.3 fl (7.4-10.4); Platelet Count Result 132 k/mm3 (150-375); Red Blood Count 3.75 M/mm3 (4.2-5.4); Red Cell Distribution Width 15.2 % (11.5-14.5); White Blood Count 3.9 K/mm3 (4.5-10.0)
[2023-06-29 06:30] LABS: Anion Gap 5 mmol/L (4-12); Blood Urea Nitrogen 61 mg/dL (7-17); Calcium 9.1 mg/dL (8.4-10.2); Carbon Dioxide 26 mmol/L (22-30); Chloride 107 mmol/L (98-107); Estimated CRCL calculation 34 ml/min; Estimated Glomerular Filt Rate 26; Glucose 81 mg/dL (65-110); Potassium 4.8 mmol/L (3.4-5.0); Sodium 138 mmol/L (137-145)
[2023-06-29 07:49] LABS: Glucose Point of Care 70 mg/dl (65-105)
[2023-06-29 08:06] LABS: Glucose Point of Care 79 mg/dl (65-105)
[2023-06-29 08:47] LABS: Hemoglobin A1C 5.5 % (<5.7)
[2023-06-29] MEDS: LINACLOTIDE 145 MCG CAPSULE 290 MCG PO (10:43)
[2023-06-29] MEDS: QUEtiapine FUMARATE 100 MG TABLET 200 MG PO ×2 (10:43→16:22)
[2023-06-29] MEDS: DULoxetine HCL 30 MG CAPSULE.DR BY MOUTH ×2 (10:43→16:22)
[2023-06-29] MEDS: ACETAMINOPHEN 500 MG TABLET 1000 MG PO ×2 (10:43→16:22)
[2023-06-29] MEDS: LACTULOSE 20 GM/30 ML UDC PO (10:43)
[2023-06-29 10:44] VITALS: PULSE 73
[2023-06-29] MEDS: METOPROLOL TARTRATE 50 MG TAB BY MOUTH ×2 (10:44→16:20)
[2023-06-29] MEDS: APIXABAN 2.5 MG TABLET PO (10:45)
[2023-06-29] MEDS: ATORVASTATIN 10 MG TABLET BY MOUTH (10:45)
[2023-06-29] MEDS: ASPIRIN 81 MG ENTERIC TABLET PO ×2 (10:45→16:21)
[2023-06-29] MEDS: PREGABALIN (*CRX) 50 MG CAPSULE 100 MG PO ×3 (10:45→16:21)
[2023-06-29 11:21] LABS: Glucose Point of Care 126 mg/dl (65-105)
[2023-06-29 11:45] VITALS: BMI 37.0
--- NOTE | 2023-06-29 13:42 | PM.IMPN ---
Progress Note: A&P Assessment and Plan (1) UTI (urinary tract infection): Qualifiers: Encounter type: initial encounter Indwelling urinary catheter type: indwelling urethral catheter Urinary tract infection type: catheter-associated UTI Qualified Code(s): T83.511A - Infection and inflammatory reaction due to indwelling urethral catheter, initial encounter; N39.0 - Urinary tract infection, site not specified Code(s): N39.0 - Urinary tract infection, site not specified Status: Acute Assessment and Plan: UA indicative of infection - daughter states that the patient was prescribed a new antibiotic last week and she is unsure if she has finished it or not. She is going to call us with that information once it is found out - will obtain culture information from the [facility] and we can tailor the antibiotics to that since her being on antibiotics will likely make this culture we sent today negative -Will monitor culture and continue ceftriaxone for now -villa changed -could be the cause of her weakness -lactic acid wnl 06/28: Urine culture pending, continue empiric antibiotics for now (2) Fall: Qualifiers: Encounter type: initial encounter Qualified Code(s): W19.XXXA - Unspecified fall, initial encounter Code(s): W19.XXXA - Unspecified fall, initial encounter Status: Acute Assessment and Plan: Ground level fall -CTH NAP -CT pelvis without fracture -Likely due to debility -start PT/OT - check A1c in the morning to ensure glucose is not too tightly controlled since she was low earlier today 06/28: Patient refused PT and OT today stating that she hurt too much. Informed patient to ask for pain medicine tomorrow to participate in therapy evaluation. Patient will likely require SNF verses placement (3) SCAR (acute kidney injury): Code(s): N17.9 - Acute kidney failure, unspecified Status: Acute Assessment and Plan: Noted on labs and looked very dehydrated on exam -Start IVF -Potassium mildly elevated and will likely correct with fluids -monitor daily BMP -infx vs dehydration 06/28: Continue IV fluids, some improvement has been noted already. Ordered renal ultrasound. (4) T2DM (type 2 diabetes mellitus): Code(s): E11.9 - Type 2 diabetes mellitus without complications Status: Acute Assessment and Plan: Start SSI and hypoglycemia protocol - will hold long acting insulin today since patient was hypoglycemic - will draw A1c to see if she is possibly too tightly controlled. She also could be hypoglycemic due to SCAR -may need adjustment at d/c -last glucose 99 06/28: Hemoglobin A1c 5.5. Discontinue long-acting insulin (5) Mild cognitive impairment with memory loss: Code(s): G31.84 - Mild cognitive impairment of uncertain or unknown etiology Status: Acute Assessment and Plan: Known cognitive dysfunction - patient was actually alert and oriented x4 on my exam (6) HTN (hypertension), benign: Code(s): I10 - Essential (primary) hypertension Status: Acute Assessment and Plan: 06/27: Last bp 129/76 -will restart home medications once verified Blood pressures reviewed on 06/28 stable immediate intervention needed (7) Neurogenic bladder: Code(s): N31.9 - Neuromuscular dysfunction of bladder, unspecified Status: Acute Assessment and Plan: Pt has chronic villa which was changed out (8) Chronic anticoagulation: Code(s): Z79.01 - [employer] consultant (current) use of anticoagulants Status: Acute Assessment and Plan: unclear of reason. possible hx of DVT with eliquis being used as a preventative now -I spoke with both daughter and pt about this and they are both unsure (9) Physical debility: Code(s): R53.81 - Other malaise Status: Acute Assessment and Plan: Fall with right hip pain and left shoul
[2023-06-29 14:00] VITALS: BP 148/68; PULSE 73; RESP 18; TEMP 36.1; O2SAT 96
[2023-06-29 16:20] VITALS: PULSE 73
[2023-06-29] MEDS: BENZTROPINE MESYLATE 0.5 MG TABLET PO ×2 (16:22→21:19)
[2023-06-29 16:45] LABS: Glucose Point of Care 136 mg/dl (65-105)
[2023-06-29 19:58] LABS: Glucose Point of Care 169 mg/dl (65-105)
[2023-06-29] MEDS: DONEPEZIL HCL 10 MG TABLET PO (21:19)
[2023-06-29] MEDS: traMADol HCL (*CRX) 50 MG TABLET PO (21:19)
[2023-06-29] MEDS: MEMANTINE HCL XR 28 MG CAP PO (21:19)
[2023-06-29 22:00] VITALS: BP 105/52; PULSE 65; RESP 18; TEMP 36.9; O2SAT 97
[2023-06-30] VITALS (8 sets, daily range): BP systolic 141–171; BP diastolic 63–82; PULSE 62–74; RESP 16–20; TEMP 36.1–36.4; O2SAT 93–100
[2023-06-30] MEDS: BENZTROPINE MESYLATE 0.5 MG TABLET PO ×3 (05:42→20:50)
[2023-06-30 07:23] LABS: Basophils Percent Auto 0.7 % (0.2-1.2); Eosinophils Absolute Auto 0.2 K/mm3 (0-0.3); Eosinophils Percent Auto 4.7 % (0-4.4); Hematocrit 35.7 % (37.0-47.0); Hemoglobin 10.8 g/dL (12.0-15.0); Immature Granulocyte Absolute 0.03 K/mm3 (0.00-0.031); Immature Granulocyte Percent A 0.7 % (0-0.5); Immature Platelet Fraction Pct 5.6 % (0.9-11.2); Lymphocytes Absolute Auto 0.83 K/mm3 (0.9-3.2); Lymphocytes Percent Auto 18.4 % (18.3-44.2); Mean Corpuscular HGB Conc 30.3 g/dl (32-36); Mean Corpuscular Hemoglobin 29.4 pg (26-34); Mean Corpuscular Volume 97.3 fl (80-100); Mean Platelet Volume 11.5 fl (7.4-10.4); Monocytes Absolute Auto 0.4 K/mm3 (0.1-0.6); Neutrophils Absolute Auto 3.1 K/mm3 (1.3-6.7); Neutrophils Percent Auto 67.5 % (45.5-73.1); Platelet Count Result 132 k/mm3 (150-375); Red Blood Count 3.67 M/mm3 (4.2-5.4); Red Cell Distribution Width 15.2 % (11.5-14.5); White Blood Count 4.5 K/mm3 (4.5-10.0)
[2023-06-30 07:42] LABS: Glucose Point of Care 112 mg/dl (65-105)
[2023-06-30 07:47] LABS: Alanine Aminotransferase 20 U/L (6-35); Albumin Level 3.8 g/dL (3.5-5.1); Alkaline Phosphatase 100 U/L (38-126); Anion Gap 6 mmol/L (4-12); Aspartate Amino Transferase 25 U/L (14-36); Bilirubin,Total 0.5 mg/dL (0.2-1.3); Blood Urea Nitrogen 49 mg/dL (7-17); Calcium 9.4 mg/dL (8.4-10.2); Carbon Dioxide 27 mmol/L (22-30); Chloride 107 mmol/L (98-107); Estimated CRCL calculation 34 ml/min; Estimated Glomerular Filt Rate 26; Glucose 116 mg/dL (65-110); Magnesium 2.2 mg/dL (1.6-2.3); Potassium 4.8 mmol/L (3.4-5.0); Sodium 140 mmol/L (137-145)
[2023-06-30] MEDS: QUEtiapine FUMARATE 100 MG TABLET 200 MG PO ×2 (09:13→16:51)
[2023-06-30] MEDS: DULoxetine HCL 30 MG CAPSULE.DR BY MOUTH ×2 (09:13→16:52)
[2023-06-30] MEDS: LINACLOTIDE 145 MCG CAPSULE 290 MCG PO (09:14)
[2023-06-30] MEDS: ACETAMINOPHEN 500 MG TABLET 1000 MG PO ×2 (09:14→16:51)
[2023-06-30] MEDS: METOPROLOL TARTRATE 50 MG TAB BY MOUTH ×2 (09:14→16:51)
[2023-06-30] MEDS: APIXABAN 2.5 MG TABLET PO (09:14)
[2023-06-30] MEDS: ASPIRIN 81 MG ENTERIC TABLET PO ×2 (09:14→16:52)
[2023-06-30] MEDS: ATORVASTATIN 10 MG TABLET BY MOUTH (09:14)
[2023-06-30] MEDS: PREGABALIN (*CRX) 50 MG CAPSULE 100 MG PO ×3 (09:14→16:51)
[2023-06-30] MEDS: LACTULOSE 20 GM/30 ML UDC PO (09:15)
[2023-06-30 11:37] LABS: Glucose Point of Care 186 mg/dl (65-105)
--- NOTE | 2023-06-30 12:47 | P.CONNP_ITS ---
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) * perhaps an element of protracted renal hypoperfusion * cannot discount possible CKD progression as well * continue current therapy * follow trend of repeat labs and UOP (2) Stage 3b chronic kidney disease: Code(s): N18.32 - Chronic kidney disease, stage 3b Status: Chronic Assessment and Plan: * baseline creatinine seems to run ~ 1.3 - 1.7mg/dl * presumably secondary to HTN, DM, vascular disease, chronic villa with UTIs, and age-related change (3) UTI (urinary tract infection): Qualifiers: Encounter type: initial encounter Indwelling urinary catheter type: i ndwelling urethral catheter Urinary tract infection type: catheter-associated UTI Qualified Code(s): T83.511A - Infection and inflammatory reaction due to indwelling urethral catheter, initial encounter; N39.0 - Urinary tract infection, site not specified Code(s): N39.0 - Urinary tract infection, site not specified Status: Acute Assessment and Plan: * admission UA suggestive of infection * complicated by indwelling villa catheter * culture with E.coli * on antibiotics (4) HTN (hypertension), benign: Code(s): I10 - Essential (primary) hypertension Status: Chronic Assessment and Plan: * reasonable control * follow trend of hemodynamics (5) Neurogenic bladder: Code(s): N31.9 - Neuromuscular dysfunction of bladder, unspecified Status: Acute Assessment and Plan: * need for chronic villa catheter * exchanged out on admission * follows with urology as an outpatient (6) T2DM (type 2 diabetes mellitus): Code(s): E11.9 - Type 2 diabetes mellitus without complications Status: Acute Assessment and Plan: * follow accu-cheks * glycemic control per hsopitalists I will continue follow the patient with you while she remains hospitalized and make further recommendations as deemed necessary. Thank you for allowing me to participate in the care of this patient. History of Present Illness Reason for Consult Consult date: 06/30/23 Reason for consult: acute renal failure (on chronic kidney disease) Chief Complaint Chief complaint: SCAR History of Present Illness Narrative: The patient is a 68-year-old female with a past medical history as outlined below who presented to [facility] Emergency room for further evaluation status post fall. The patient was apparently in her kitchen and tripped and fell on the right side of her body. It would seem that her right hip impacted the floor on the fall. She reports no loss of consciousness or hitting her head when the fall occurred and was able to crawl to her bedroom to pull herself up. No other reported symptoms prior to or around the fall with regard to nausea, vomiting, fevers, chills, diarrhea, chest pain, shortness of breath, or abdominal pain. The daughter report in the ER that she had a recent urinary tract infection a couple weeks prior and was prescribed a new antibiotic but the details of this are not clear. Workup and evaluation in the
--- NOTE | 2023-06-30 12:47 | PM.CNNEP ---
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) perhaps an element of protracted renal hypoperfusion cannot discount possible CKD progression as well continue current therapy follow trend of repeat labs and UOP (2) Stage 3b chronic kidney disease: Code(s): N18.32 - Chronic kidney disease, stage 3b Status: Chronic Assessment and Plan: baseline creatinine seems to run ~ 1.3 - 1.7mg/dl presumably secondary to HTN, DM, vascular disease, chronic villa with UTIs, and age-related change (3) UTI (urinary tract infection): Qualifiers: Encounter type: initial encounter Indwelling urinary catheter type: indwelling urethral catheter Urinary tract infection type: catheter-associated UTI Qualified Code(s): T83.511A - Infection and inflammatory reaction due to indwelling urethral catheter, initial encounter; N39.0 - Urinary tract infection, site not specified Code(s): N39.0 - Urinary tract infection, site not specified Status: Acute Assessment and Plan: admission UA suggestive of infection complicated by indwelling villa catheter culture with E.coli on antibiotics (4) HTN (hypertension), benign: Code(s): I10 - Essential (primary) hypertension Status: Chronic Assessment and Plan: reasonable control follow trend of hemodynamics (5) Neurogenic bladder: Code(s): N31.9 - Neuromuscular dysfunction of bladder, unspecified Status: Acute Assessment and Plan: need for chronic villa catheter exchanged out on admission follows with urology as an outpatient (6) T2DM (type 2 diabetes mellitus): Code(s): E11.9 - Type 2 diabetes mellitus without complications Status: Acute Assessment and Plan: follow accu-cheks glycemic control per hsopitalists I will continue follow the patient with you while she remains hospitalized and make further recommendations as deemed necessary. Thank you for allowing me to participate in the care of this patient. History of Present Illness Reason for Consult Consult date: 06/30/23 Reason for consult: acute renal failure (on chronic kidney disease) Chief Complaint Chief complaint: SCAR History of Present Illness Narrative: The patient is a 68-year-old female with a past medical history as outlined below who presented to [facility] Emergency room for further evaluation status post fall. The patient was apparently in her kitchen and tripped and fell on the right side of her body. It would seem that her right hip impacted the floor on the fall. She reports no loss of consciousness or hitting her head when the fall occurred and was able to crawl to her bedroom to pull herself up. No other reported symptoms prior to or around the fall with regard to nausea, vomiting, fevers, chills, diarrhea, chest pain, shortness of breath, or abdominal pain. The daughter report in the ER that she had a recent urinary tract infection a couple weeks prior and was prescribed a new antibiotic but the details of this are not clear. Workup and evaluation in the emergency room demonstrated the patient to be hemodynamically stable and only in mild distress secondary to pain /discomfort to her right hip area following the fall. Her EKG did not show any ischemic changes and routine blood test demonstrated a normal white blood cell count mild anemia and normal platelet count. Her chemistry was significant for a mildly elevated potassium and elevated BUN and creatinine abov
--- NOTE | 2023-06-30 13:24 | PM.IMPN ---
Progress Note: A&P Assessment and Plan (1) UTI (urinary tract infection): Qualifiers: Encounter type: initial encounter Indwelling urinary catheter type: indwelling urethral catheter Urinary tract infection type: catheter-associated UTI Qualified Code(s): T83.511A - Infection and inflammatory reaction due to indwelling urethral catheter, initial encounter; N39.0 - Urinary tract infection, site not specified Code(s): N39.0 - Urinary tract infection, site not specified Status: Acute Assessment and Plan: UA indicative of infection - daughter states that the patient was prescribed a new antibiotic last week and she is unsure if she has finished it or not. She is going to call us with that information once it is found out - will obtain culture information from the Urology group [facility] and we can tailor the antibiotics to that since her being on antibiotics will likely make this culture we sent today negative -Will monitor culture and continue ceftriaxone for now -villa changed -could be the cause of her weakness -lactic acid wnl 06/28: Urine culture pending, continue empiric antibiotics for now 06/29: E coli resistant to Bactrim and fluoroquinolones, will change to cephalosporin oral (2) Fall: Qualifiers: Encounter type: initial encounter Qualified Code(s): W19.XXXA - Unspecified fall, initial encounter Code(s): W19.XXXA - Unspecified fall, initial encounter Status: Acute Assessment and Plan: Ground level fall -CTH NAP -CT pelvis without fracture -Likely due to debility -start PT/OT - check A1c in the morning to ensure glucose is not too tightly controlled since she was low earlier today 06/28: Patient refused PT and OT today stating that she hurt too much. Informed patient to ask for pain medicine tomorrow to participate in therapy evaluation. Patient will likely require SNF verses placement 06/29: Frequent fall risk due to patient's neuropathy. She did participate with therapy today. She does not want SNF upon discharge and wants to go back home. Would ordinarily want patient on 5 mg Eliquis twice daily but due to increased fall risk will remain at 2.5 mg twice daily. (3) SCAR (acute kidney injury): Code(s): N17.9 - Acute kidney failure, unspecified Status: Acute Assessment and Plan: Noted on labs and looked very dehydrated on exam -Start IVF -Potassium mildly elevated and will likely correct with fluids -monitor daily BMP -infx vs dehydration 06/28: Continue IV fluids, some improvement has been noted already. Ordered renal ultrasound. 06/29: Improvement in BUN with IV fluids but creatinine is flat at 1.9. Consult Nephrology. Renal ultrasound shows some cysts in the left and cortical thinning. Likely progression of baseline CKD. (4) T2DM (type 2 diabetes mellitus): Code(s): E11.9 - Type 2 diabetes mellitus without complications Status: Acute Assessment and Plan: Start SSI and hypoglycemia protocol - will hold long acting insulin today since patient was hypoglycemic - will draw A1c to see if she is possibly too tightly controlled. She also could be hypoglycemic due to SCAR -may need adjustment at d/c -last glucose 99 06/28: Hemoglobin A1c 5.5. Discontinue long-acting insulin (5) Mild cognitive impairment with memory loss: Code(s): G31.84 - Mild cognitive impairment of uncertain or unknown etiology Status: Acute Assessment and Plan: Known cognitive dysfunction - patient was actually alert and oriented x4 on my exam (6) HTN (hypertension), benign: Code(s): I10 - Essential (primary) hypertension Status: Acute Assessment and Plan: 06/27: Last bp 129/76 -will restart home medications once verified Blood pressures reviewed on 06/29 stable immediate intervention needed (7) Neurogenic bladder: Code(s): N31.9 - Neuromuscular dysfunction of bladder, u
[2023-06-30 16:32] LABS: Glucose Point of Care 135 mg/dl (65-105)
[2023-06-30] MEDS: SODIUM CHLORIDE 0.9% IV 1,000 ML 100 ML IV CONT (16:50)
[2023-06-30] MEDS: MEMANTINE HCL XR 28 MG CAP PO (20:49)
[2023-06-30] MEDS: DONEPEZIL HCL 10 MG TABLET PO (20:50)
[2023-06-30] MEDS: traMADol HCL (*CRX) 50 MG TABLET PO (20:50)
[2023-06-30 21:36] LABS: Glucose Point of Care 148 mg/dl (65-105)
[2023-07-01 06:00] VITALS: BP 162/66; PULSE 59; RESP 20; TEMP 36.3; O2SAT 95
[2023-07-01 06:38] LABS: Basophils Percent Auto 0.5 % (0.2-1.2); Eosinophils Absolute Auto 0.2 K/mm3 (0-0.3); Eosinophils Percent Auto 4.5 % (0-4.4); Hematocrit 36.3 % (37.0-47.0); Hemoglobin 10.9 g/dL (12.0-15.0); Immature Granulocyte Absolute 0.02 K/mm3 (0.00-0.031); Immature Granulocyte Percent A 0.5 % (0-0.5); Lymphocytes Absolute Auto 0.85 K/mm3 (0.9-3.2); Lymphocytes Percent Auto 22.5 % (18.3-44.2); Mean Corpuscular Hemoglobin 29.5 pg (26-34); Mean Corpuscular Volume 98.1 fl (80-100); Mean Platelet Volume 11.3 fl (7.4-10.4); Monocytes Absolute Auto 0.3 K/mm3 (0.1-0.6); Neutrophils Absolute Auto 2.4 K/mm3 (1.3-6.7); Platelet Count Result 121 k/mm3 (150-375); Red Cell Distribution Width 15.1 % (11.5-14.5); White Blood Count 3.8 K/mm3 (4.5-10.0)
[2023-07-01] MEDS: BENZTROPINE MESYLATE 0.5 MG TABLET PO (06:43)
[2023-07-01 06:56] LABS: Alanine Aminotransferase 24 U/L (6-35); Albumin Level 3.7 g/dL (3.5-5.1); Alkaline Phosphatase 107 U/L (38-126); Anion Gap 0 mmol/L (4-12); Aspartate Amino Transferase 25 U/L (14-36); Bilirubin,Total 0.5 mg/dL (0.2-1.3); Blood Urea Nitrogen 45 mg/dL (7-17); Calcium 9.4 mg/dL (8.4-10.2); Carbon Dioxide 29 mmol/L (22-30); Chloride 108 mmol/L (98-107); Estimated CRCL calculation 46 ml/min; Estimated Glomerular Filt Rate 37; Glucose 122 mg/dL (65-110); Magnesium 2.1 mg/dL (1.6-2.3); Potassium 4.5 mmol/L (3.4-5.0); Sodium 137 mmol/L (137-145)
[2023-07-01 07:03] LABS: Creatine Kinase 49 U/L (30-135)
[2023-07-01 07:43] LABS: Glucose Point of Care 116 mg/dl (65-105)
--- NOTE | 2023-07-01 08:58 | PM.DS ---
DS: Admitting Diagnosis Discharge Date 07/01/2023 Admitting Diagnosis UTI, fall, SCAR, type 2 diabetes mellitus, mild cognitive impairment with memory loss, benign hypertension, neurogenic bladder, chronic anticoagulation DS: Discharge Diagnosis Discharge Diagnosis (1) UTI (urinary tract infection): Qualifiers: Encounter type: initial encounter Indwelling urinary catheter type: indwelling urethral catheter Urinary tract infection type: catheter-associated UTI Qualified Code(s): T83.511A - Infection and inflammatory reaction due to indwelling urethral catheter, initial encounter; N39.0 - Urinary tract infection, site not specified Code(s): N39.0 - Urinary tract infection, site not specified Status: Acute (2) Fall: Qualifiers: Encounter type: initial encounter Qualified Code(s): W19.XXXA - Unspecified fall, initial encounter Code(s): W19.XXXA - Unspecified fall, initial encounter Status: Acute (3) SCAR (acute kidney injury): Code(s): N17.9 - Acute kidney failure, unspecified Status: Acute (4) T2DM (type 2 diabetes mellitus): Code(s): E11.9 - Type 2 diabetes mellitus without complications Status: Acute (5) Mild cognitive impairment with memory loss: Code(s): G31.84 - Mild cognitive impairment of uncertain or unknown etiology Status: Acute (6) HTN (hypertension), benign: Code(s): I10 - Essential (primary) hypertension Status: Chronic (7) Neurogenic bladder: Code(s): N31.9 - Neuromuscular dysfunction of bladder, unspecified Status: Acute (8) Chronic anticoagulation: Code(s): Z79.01 - senior care (current) use of anticoagulants Status: Acute (9) Physical debility: Code(s): R53.81 - Other malaise Status: Acute (10) Chronic indwelling Vigil catheter: Code(s): Z97.8 - Presence of other specified devices Status: Acute (11) Abnormality of gait and mobility: Code(s): R26.9 - Unspecified abnormalities of gait and mobility Status: Acute (12) Neuroleptic-induced tardive dyskinesia: Code(s): G24.01 - Drug induced subacute dyskinesia; T43.505A - Adverse effect of unspecified antipsychotics and neuroleptics, initial encounter Status: Acute (13) Neuropathic pain: Code(s): M79.2 - Neuralgia and neuritis, unspecified Status: Acute (14) MALIA on CPAP: Code(s): G47.33 - Obstructive sleep apnea (adult) (pediatric); Z99.89 - Dependence on other enabling machines and devices Status: Chronic DS: Summary Hospital Course Hospital Course: This is a 68-year-old female patient with numerous medical comorbidities presented to the emergency department with right hip pain left shoulder pain status post fall at home. Patient has indwelling Vigil catheter due to neurogenic bladder. Emergency department workup was consistent for urinary tract infection with worsening of renal dysfunction. Patient has chronic kidney disease but her creatinine was nearly double her baseline. Patient was started on IV fluids and admitted overnight. The following day patient stated she was in too much pain in her right hip and left shoulder to participate with therapy. Additionally her renal dysfunction only minimally improved with IV fluids. decision was made to keep patient another night and the following day there had been no change in renal function despite being on IV fluids for 2 days. Renal ultrasound showed cortical thinning and renal cyst but no obstructive uropathy. Nephrology was consulted. Today patient participating well with therapy. Renal function has returned to baseline. urine culture positive for E coli initially treated with Rocephin and changed to cefdinir which will be continued at discharge. Our recommendation is to stop lisinopril as it may have been leading to increased renal dysfunction. Nephrology okay with discharge and follow-up with primary care. Stat
[2023-07-01 09:35] VITALS: PULSE 59
[2023-07-01] MEDS: APIXABAN 2.5 MG TABLET PO (09:35)
[2023-07-01] MEDS: LACTULOSE 20 GM/30 ML UDC PO (09:35)
[2023-07-01] MEDS: QUEtiapine FUMARATE 100 MG TABLET 200 MG PO (09:35)
[2023-07-01] MEDS: DULoxetine HCL 30 MG CAPSULE.DR BY MOUTH (09:35)
[2023-07-01] MEDS: METOPROLOL TARTRATE 50 MG TAB BY MOUTH (09:35)
[2023-07-01] MEDS: ASPIRIN 81 MG ENTERIC TABLET PO (09:35)
[2023-07-01] MEDS: ACETAMINOPHEN 500 MG TABLET 1000 MG PO (09:35)
[2023-07-01] MEDS: ATORVASTATIN 10 MG TABLET BY MOUTH (09:35)
[2023-07-01] MEDS: PREGABALIN (*CRX) 50 MG CAPSULE 100 MG PO ×2 (09:35→12:49)
[2023-07-01] MEDS: CEFDINIR 300 MG CAPSULE PO (09:35)
[2023-07-01] MEDS: LINACLOTIDE 145 MCG CAPSULE 290 MCG PO (09:36)
[2023-07-01 10:08] LABS: Creatinine Urine 53.4 mg/dL; Total Protein Urine Random 18 mg/dL; Ur Ttl Prot Creatinine Ratio 0.34 mg/mg (0-0.20); Urea Random Urine 676 MG/DL
[2023-07-01 10:12] LABS: Sodium Urine Random 106 meq/L
[2023-07-01 10:27] LABS: Eosinophil Urine None Seen % (None Seen); Urine Eos QC 2nd Tech Confirmed
--- NOTE | 2023-07-01 10:29 | P.PNNP_ITS ---
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) * perhaps an element of protracted renal hypoperfusion * cannot discount possible CKD progression as well * continue current therapy * follow trend of repeat labs and UOP (2) Stage 3b chronic kidney disease: Code(s): N18.32 - Chronic kidney disease, stage 3b Status: Chronic Assessment and Plan: * baseline creatinine seems to run ~ 1.3 - 1.7mg/dl * presumably secondary to HTN, DM, vascular disease, chronic villa with UTIs, and age-related change (3) UTI (urinary tract infection): Qualifiers: Encounter type: initial encounter Indwelling urinary catheter type: indwelling urethral catheter Urinary tract infection type: catheter-associated UTI Qualified Code(s): T83.511A - Infection and inflammatory reaction due to in dwelling urethral catheter, initial encounter; N39.0 - Urinary tract infection, site not specified Code(s): N39.0 - Urinary tract infection, site not specified Status: Acute Assessment and Plan: * admission UA suggestive of infection * complicated by indwelling villa catheter * culture with E.coli * on antibiotics (4) HTN (hypertension), benign: Code(s): I10 - Essential (primary) hypertension Status: Chronic Assessment and Plan: * reasonable control * follow trend of hemodynamics (5) Neurogenic bladder: Code(s): N31.9 - Neuromuscular dysfunction of bladder, unspecified Status: Acute Assessment and Plan: * need for chronic villa catheter * exchanged out on admission * follows with urology as an outpatient (6) T2DM (type 2 diabetes mellitus): Code(s): E11.9 - Type 2 diabetes mellitus without complications Status: Acute Assessment and Plan: * follow accu-cheks * glycemic control per hsopitalists Not opposed to discharge from renal perspective if otherwise medically stable. Will continue to follow. Subjective Date/time seen: 07/01/23 10:29 Interval history: Follow-up for acute kidney injury/acute renal failure on chronic kidney disease. No apparent issues or events noted overnight or earlier this morning; no apparent distress noted; renal function back to baseline by AM labs; no other acute complaints or cocnerns voiced at the time of my visit. Exam Narrative: General: elderly but WD/WN female in NAD Heart: normal S1 and S2; no rub Lungs: clear to auscultation Abdomen: soft, nontender, nondistended, positive bowel sounds Extremities: no cyanosis or clubbing; no edema Skin: warm and dry Objective Data Vital Signs Vital Signs: Vital Signs Temp Pulse Resp BP Pulse Ox O2 Del Method 07/01/23 09:35 59 L 07/01/23 06:00 97.4 F L 59 L 20 162/66 H 95 06/30/23 21:40 97 Room Air 06/30/23 20:00 Room Air 06/30/23 22:00 97.6 F 67 18 149/63 H 93 06/30/23 16:51 70
--- NOTE | 2023-07-01 10:29 | PM.PNNEP ---
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) perhaps an element of protracted renal hypoperfusion cannot discount possible CKD progression as well continue current therapy follow trend of repeat labs and UOP (2) Stage 3b chronic kidney disease: Code(s): N18.32 - Chronic kidney disease, stage 3b Status: Chronic Assessment and Plan: baseline creatinine seems to run ~ 1.3 - 1.7mg/dl presumably secondary to HTN, DM, vascular disease, chronic villa with UTIs, and age-related change (3) UTI (urinary tract infection): Qualifiers: Encounter type: initial encounter Indwelling urinary catheter type: indwelling urethral catheter Urinary tract infection type: catheter-associated UTI Qualified Code(s): T83.511A - Infection and inflammatory reaction due to indwelling urethral catheter, initial encounter; N39.0 - Urinary tract infection, site not specified Code(s): N39.0 - Urinary tract infection, site not specified Status: Acute Assessment and Plan: admission UA suggestive of infection complicated by indwelling villa catheter culture with E.coli on antibiotics (4) HTN (hypertension), benign: Code(s): I10 - Essential (primary) hypertension Status: Chronic Assessment and Plan: reasonable control follow trend of hemodynamics (5) Neurogenic bladder: Code(s): N31.9 - Neuromuscular dysfunction of bladder, unspecified Status: Acute Assessment and Plan: need for chronic villa catheter exchanged out on admission follows with urology as an outpatient (6) T2DM (type 2 diabetes mellitus): Code(s): E11.9 - Type 2 diabetes mellitus without complications Status: Acute Assessment and Plan: follow accu-cheks glycemic control per hsopitalists Not opposed to discharge from renal perspective if otherwise medically stable. Will continue to follow. Subjective Date/time seen: 07/01/23 10:29 Interval history: Follow-up for acute kidney injury/acute renal failure on chronic kidney disease. No apparent issues or events noted overnight or earlier this morning; no apparent distress noted; renal function back to baseline by AM labs; no other acute complaints or cocnerns voiced at the time of my visit. Exam Narrative: General: elderly but WD/WN female in NAD Heart: normal S1 and S2; no rub Lungs: clear to auscultation Abdomen: soft, nontender, nondistended, positive bowel sounds Extremities: no cyanosis or clubbing; no edema Skin: warm and dry Objective Data Vital Signs Vital Signs: Vital Signs Temp Pulse Resp BP Pulse Ox O2 Del Method 07/01/23 09:35 59 L 07/01/23 06:00 97.4 F L 59 L 20 162/66 H 95 06/30/23 21:40 97 Room Air 06/30/23 20:00 Room Air 06/30/23 22:00 97.6 F 67 18 149/63 H 93 06/30/23 16:51 70 06/30/23 16:50 70 171/68 H 100 Intake/Output Intake/Output: Intake & Output 06/28/23 06/29/23 06/30/23 07/01/23 23:59 23:59 23:59 23:59 Intake Total 2410 4238.3 1034 684 Output Total 700 3150 2950 1900 Balance 1710 1088.3 -1916 -1216 Meds/Results Medications: Active Medications Generic Name Dose Route Start Last Admin Trade Name Freq PRN Reason Stop Dose Admin Acetaminophen 1,000 mg 06/28/23 19:35 07/01/23 09:35 Acetaminophen 500 Mg Tablet PO 1,000 mg BID EMMIE Administration Apixaban 2.5 mg 06/29/23 09:00 07/01/23 09:35 Apixaban 2.5 Mg Tablet PO 2.5 mg DAILY EMMIE
[2023-07-01 11:14] LABS: Glucose Point of Care 298 mg/dl (65-105)
[2023-07-01] MEDS: INSULIN ASPART (*BKC) 100 UNITS/ML SUB-Q (12:17)
[2023-07-01] MEDS: traMADol HCL (*CRX) 50 MG TABLET PO (12:49)
--- NOTE | 2023-07-01 13:42 | PCPTNOTE ---
Patient declined PT stating she will be discharged today. Patient voices no concerns and states she has no PT needs at this time.
[2023-07-01 13:53] VITALS: BP 103/83; PULSE 74; RESP 16; TEMP 36.2; O2SAT 97
== END 2023-07-01 16:00 | disposition home health service (06) ==
LOC: ANHED 12:46 → ANH3MEDSUR 06-29 10:15
PROVIDERS: Internal Medicine Nephrology; Nurse Practitioner; Physician Assistant; Admitting Provider Student in an Organized Health Care Education/Training Program; Emergency Provider Physician Assistant; PCP Family Medicine; Visit Provider Internal Medicine
DX: T83.511A Infection and inflammatory reaction due to indwelling urethral catheter, initial encounter (principal); Y84.6 Urinary catheterization as the cause of abnormal reaction of the patient, or of later complication, without mention of misadventure at the time of the procedure; N39.0 Urinary tract infection, site not specified; N17.9 Acute kidney failure, unspecified; I12.9 Hypertensive chronic kidney disease with stage 1 through stage 4 chronic kidney disease, or unspecified chronic kidney disease; E11.22 Type 2 diabetes mellitus with diabetic chronic kidney disease; N18.32 Chronic kidney disease, stage 3b; G31.84 Mild cognitive impairment of uncertain or unknown etiology; N31.9 Neuromuscular dysfunction of bladder, unspecified; R53.81 Other malaise; R26.9 Unspecified abnormalities of gait and mobility; M79.18 Myalgia, other site; M25.562 Pain in left knee; M25.561 Pain in right knee; W01.0XXA Fall on same level from slipping, tripping and stumbling without subsequent striking against object, initial encounter; Y92.000 Kitchen of unspecified non-institutional (private) residence as the place of occurrence of the external cause; M50.30 Other cervical disc degeneration, unspecified cervical region; M47.816 Spondylosis without myelopathy or radiculopathy, lumbar region; G89.29 Other chronic pain; M16.12 Unilateral primary osteoarthritis, left hip; G24.01 Drug induced subacute dyskinesia; T43.505A Adverse effect of unspecified antipsychotics and neuroleptics, initial encounter; M79.2 Neuralgia and neuritis, unspecified; G47.33 Obstructive sleep apnea (adult) (pediatric); Z99.89 Dependence on other enabling machines and devices; R53.83 Other fatigue; R94.31 Abnormal electrocardiogram [ECG] [EKG]; F41.1 Generalized anxiety disorder; F32.3 Major depressive disorder, single episode, severe with psychotic features; Z20.822 Contact with and (suspected) exposure to COVID-19; E78.2 Mixed hyperlipidemia; Z68.37 Body mass index [BMI] 37.0-37.9, adult; E11.40 Type 2 diabetes mellitus with diabetic neuropathy, unspecified; E11.69 Type 2 diabetes mellitus with other specified complication; F13.10 Sedative, hypnotic or anxiolytic abuse, uncomplicated; Z79.4 Long term (current) use of insulin; Z79.01 Long term (current) use of anticoagulants; Z79.82 Long term (current) use of aspirin; Z79.84 Long term (current) use of oral hypoglycemic drugs; Z79.85 Long-term (current) use of injectable non-insulin antidiabetic drugs; Z79.899 Other long term (current) drug therapy
CPT/HCPCS: 36415; 70450; 71045; 72125; 72131; 72192; 73564; 76775; 80048; 80053; 80307; 81001; 81050; 82550; 82570; 82948; 83036; 83605; 83735; 84156; 84300; 84540; 85025; 85027; 85055; 85610; 85730; 85999; 87077; 87086; 87186; 87637; 93005; 96361; 96365; 96375; 97161; 97165; 99285; A9270; G0378; J0696; J1815; J2270; J7030

== ENCOUNTER 2023-09-15 10:23 | Inpatient (IN) | payer MEDICARE, OTHER, SELFPAY ==
[2023-09-15] VITALS (29 sets, daily range): BP systolic 92–141; BP diastolic 52–70; PULSE 71–88; RESP 11–22; TEMP 36.4–36.8; O2SAT 88–100; BMI 42.0; BMI 47.3
--- NOTE | ~2023-09-15 | XR_ITS ---
EXAMINATION: [id number], XR tibia fibula LT 2V DATE: 09/16/2023 15:43 INDICATION: Lateral left knee pain post fall 2 days prior TECHNIQUE: 1. AP and lateral views of the left knee were obtained. 2. AP and lateral views of the left tibia and fibula were obtained on overlapping proximal and distal images. COMPARISON: None. FINDINGS: Bone alignment is normal. No acute fracture. Focal chronic callus formation about the proximal left f ibular diaphysis consistent with old healed fracture. There is a long spike like excrescences with he terotopic ossification extending caudally from the head of the fibula likely also sequela of chronic trauma. Corticated ossicle at the tip of the lateral malleolus likely either additional heterotopic o ssification or chronic nonunited fracture fragment related to old trauma. Tricompartmental osteoarthr itis at the left knee, severe in the medial compartment and at least moderate severity in the patello femoral compartment. Additional mild to moderate polyarticular osteoarthritis involving multiple join ts at the left ankle, mid and hindfoot. Suggestion of a moderate-sized left knee joint effusion. Musc ular atrophy at the left calf. IMPRESSION: 1. 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 No acute osseous abnorma lity. 2. Nonspecific moderate-sized left knee joint effusion which could be posttraumatic or reactive relat ed to the severe medial compartment joint compartment osteoarthritis at the left knee. Reviewed, dictated and finalized at location B. IMPRESSION: 1. 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 No acute osseous abnormality. 2. Nonspecific moderate-sized left knee joint effusion which could be posttraum atic or reactive related to the severe medial compartment joint compartment ost eoarthritis at the left knee.
--- NOTE | ~2023-09-15 | CT_ITS ---
CT facial & cervical spine wo Ordering provider: Brynn Rangel PA-C History: . head injury . Comparison: None. Technique: Thin slice axial CT of the facial bones was performed without contrast. Coronal and sagit jordan reformatted images were also obtained. . Automated exposure control and iterative reconstruction technique were employed. The dose-length product was 571.55 mGy-cm. FINDINGS: PARANASAL SINUSES: Left sphenoid sinusitis. BONES: Left nasal bone fracture. ORBITS AND SUPERFICIAL SOFT TISSUES: The optic globes and orbits are normal. The superficial soft tis sues are normal. VISUALIZED MASTOIDS: Well aerated. LIMITED VISUALIZED BRAIN PARENCHYMA: Normal. IMPRESSION: Left nasal bone fracture. Left sphenoid sinusitis. CT facial & cervical spine wo Ordering provider: Brynn Rangel PA-C History: . head injury . Comparison: None. Technique: CT of the cervical spine was performed without contrast. Sagittal and coronal reformatted images were also obtained and reviewed. Automated exposure control and iterative reconstruction osorio hnique were employed. The dose-length product was 571.55 mGy-cm. FINDINGS: VERTEBRAE: No subluxation or acute fracture. The occipital condyles are intact. DISC SPACES: Narrowing of the disc spaces C4-C5, C5-C6, C6-C7 and C7-T1. Multilevel facet joint disea se. Left intervertebral foraminal narrowing at the level of C3-C4. Bilateral narrowing of the foramin a at the level of C4-C5, C5-C6 and C6-C7 PARASPINOUS SOFT TISSUES: Normal. IMPRESSION: No acute osseous abnormality cervical spine. Reviewed, dictated and finalized at location A. IMPRESSION: Left nasal bone fracture. Left sphenoid sinusitis. CT facial & cervical spine wo Ordering provider: Brynn Rangel PA-C History: . head injury . Comparison: None. Technique: CT of the cervical spine was performed without contrast. Sagittal a nd coronal reformatted images were also obtained and reviewed. Automated expos ure control and iterative reconstruction technique were employed. The dose-lazarus th product was 571.55 mGy-cm. FINDINGS: VERTEBRAE: No subluxation or acute fracture. The occipital condyles are intact. DISC SPACES: Narrowing of the disc spaces C4-C5, C5-C6, C6-C7 and C7-T1. Multil evel facet joint disease. Left intervertebral foraminal narrowing at the level of C3-C4. Bilateral narrowing of the foramina at the level of C4-C5, C5-C6 and C6-C7 PARASPINOUS SOFT TISSUES: Normal.
--- NOTE | ~2023-09-15 | XR_ITS ---
EXAMINATION: XR chest 2V DATE: 09/15/2023 12:04 INDICATION: Syncope. Weakness. TECHNIQUE: Frontal and lateral views of the chest were obtained. COMPARISON: Chest single view 06/28/2023, chest CT 05/24/2023 FINDINGS: There is no pneumonia, pleural effusion, or pneumothorax. The heart size is normal. There i s an old healed right rib fracture. IMPRESSION: 1. No acute cardiopulmonary disease. Reviewed, dictated and finalized at location A.
--- NOTE | ~2023-09-15 | CT_ITS ---
CT brain wo con Ordering provider: Brynn Rangel PA-C History: 68 years Female with . head injury, syncope . Comparison: June 28, 2023 Technique: CT of the head without contrast. Radiation reduction technique utilized. DLP is 681 mGy. FINDINGS: BRAIN PARENCHYMA AND CSF SPACES: Hypodense areas seen in the left CP angle which may be a meningioma measuring 1.5 x 0.9 cm. Unchanged from previous examination. Otherwise No midline shift, mass effect or hemorrhage. The brain parenchyma and CSF spaces are otherwise normal. VISUALIZED PARANASAL SINUSES: Left dyspnea sphenoid sinusitis. MASTOIDS: Well aerated. BONES: The bones appear intact. SOFT TISSUES: Visualized nasopharynx is normal. Superficial soft tissues are normal. IMPRESSION: No acute intracranial findings. Left CP angle meningioma unchanged from previous examination. Reviewed, dictated and finalized at location A.
--- NOTE | ~2023-09-15 | CT_ITS ---
EXAMINATION: CT abdomen pelvis wo con DATE: 09/15/2023 11:49 INDICATION: Abdominal pain and diarrhea TECHNIQUE: Computed tomography (CT) of the abdomen and pelvis was performed without intravenous contr ast. Automated exposure control and iterative reconstruction technique were employed. The dose-length product was 1488.89 mGy-cm. COMPARISON: CT dated 05/24/2023 FINDINGS: Mild dependent atelectasis bilaterally lower lobes. Heart size is normal. No pericardial or pleural e ffusion. 1.8 x 1.1 cm ovoid mass at the medial right breast. Diffuse hepatic steatosis with focal spa ring along the gallbladder fossa. Unchanged 1.5 cm hepatic cyst. The bladder, spleen, pancreas and bi lateral adrenal glands are normal. Mild bilateral renal atrophy. Unchanged bilateral renal cysts whic h are less clearly visualized in the current study due to the absence of intravenous contrast and lalita e streak artifact. Bowels including the appendix are normal. Vigil catheter and small amount of gas w ithin the partially decompressed bladder. The uterus is not identified and has likely been surgically resected. No free intraperitoneal gas or fluid. No pathologically enlarged abdominal or pelvic lymph adenopathy. Instrumented L4-S1 anterior and posterior spinal fusion. IMPRESSION: 1. No acute intra-abdominal/pelvic process. 2. 1.8 x 1.1 cm indeterminate mass at the medial right breast. Recommend correlation with mammography or breast ultrasound. 3. Diffuse hepatic steatosis. Reviewed, dictated and finalized at location B. IMPRESSION: 1. No acute intra-abdominal/pelvic process. 2. 1.8 x 1.1 cm indeterminate mass at the medial right breast. Recommend correl ation with mammography or breast ultrasound. 3. Diffuse hepatic steatosis.
--- NOTE | 2023-09-15 10:24 | ECG_ITS ---
Test Date: 2023-09-15 10:29:23 Measurements Intervals [place] Rate: 76 P: 4 VT: 180 QRS: -12 QRSD: 118 T: 9 QT: 374 QTc: 423 Interpretive Statements SINUS RHYTHM MODERATE INTRAVENTRICULAR CONDUCTION DELAY [105+ ms QRS DURATION, 80+ ms Q/S IN V1/V2, NO Q AND 60+ ms R IN I/aVL/V5/V6] No previous ECG available for comparison Electronically Signed On 09-15-2023 13:37:30 CDT by Laura Martin M.D.
[2023-09-15 10:58] LABS: Basophils Percent Auto 0.2 % (0.2-1.2); Eosinophils Absolute Auto 0.3 K/mm3 (0-0.3); Eosinophils Percent Auto 3.8 % (0-4.4); Hematocrit 37.7 % (37.0-47.0); Immature Granulocyte Absolute 0.03 K/mm3 (0.00-0.031); Immature Granulocyte Percent A 0.4 % (0-0.5); Lymphocytes Absolute Auto 1.18 K/mm3 (0.9-3.2); Lymphocytes Percent Auto 14.6 % (18.3-44.2); Mean Corpuscular HGB Conc 31.8 g/dl (32-36); Mean Corpuscular Hemoglobin 31.3 pg (26-34); Mean Corpuscular Volume 98.2 fl (80-100); Mean Platelet Volume 10.5 fl (7.4-10.4); Monocytes Absolute Auto 0.6 K/mm3 (0.1-0.6); Monocytes Percent Auto 7.7 % (2.6-8.5); Neutrophils Absolute Auto 5.9 K/mm3 (1.3-6.7); Neutrophils Percent Auto 73.3 % (45.5-73.1); Platelet Count Result 204 k/mm3 (150-375); Red Blood Count 3.84 M/mm3 (4.2-5.4); Red Cell Distribution Width 17.2 % (11.5-14.5); White Blood Count 8.1 K/mm3 (4.5-10.0)
--- NOTE | 2023-09-15 11:04 | ED.SYNCOPE ---
HPI - Syncope General Chief Complaint: Dizziness <Brynn Rangel PA-C - Last Filed: 09/15/23 16:41> Stated Complaint: abnormal EKG <POLO Wiseman Last Filed: 09/15/23 16:41> Time Seen by Provider: 09/15/23 11:03 <Brynn Rangel PA-C - Last Filed: 09/15/23 16:41> Source: patient <POLO Wiseman Last Filed: 09/15/23 16:41> Mode of arrival: wheelchair <POLO Wiseman Last Filed: 09/15/23 16:41> Limitations: dementia <POLO Wiseman Last Filed: 09/15/23 16:41> History of Present Illness HPI narrative: This is a 68-year-old female that presents to the emergency department after a syncopal episode at [facility] [employer] [facility]. Reports she has been having several episodes of diarrhea daily over the last 4 days. She has felt very lightheaded. She went to see her doctor today. She stood up to step onto the scale and felt very lightheaded and passed out. She did hit her head. She is on anticoagulation. Reports abdominal pain. Denies fever, vomiting, focal numbness or weakness. <Brynn Rangel PA-C - Last Filed: 09/15/23 16:41> Related Data Home Medications: Home Medications Medication Instructions Recorded Confirmed acetaminophen 500 mg tablet 1,000 mg PO BID Pain 07/10/20 09/15/23 (Tylenol Extra Strength) multivit with minerals-iron 18 1 tablet PO DAILY 03/06/21 09/15/23 mg-folic ac 400 mcg-vit K 25 mcg tablet (Adults Multivitamin) aspirin 81 mg tablet,delayed 81 mg PO BID 10/30/21 09/15/23 release apixaban 2.5 mg tablet (Eliquis) 2.5 mg PO DAILY 05/18/23 09/15/23 clonidine HCl 0.1 mg tablet 0.2 mg PO HS 05/18/23 09/15/23 clotrimazole-betamethasone 1 1 applic topical BID 05/18/23 09/15/23 %-0.05 % topical cream dextrin 3 gram/4 gram oral powder 2 tsp PO TID PRN Constipation 05/18/23 09/15/23 (Clear Fiber) lactobacillus combination no.8 3 See Rx Instructions .Route .COMPLEX 05/18/23 09/15/23 billion cell capsule nystatin-triamcinolone topical 1 applic topical BID YEAST/RASH 06/28/23 09/15/23 cream quetiapine 200 mg tablet 100 mg PO BID 09/15/23 09/15/23 <Brynn Rangel PA-C - Last Filed: 09/15/23 16:41> Allergies/Adverse Reactions: Allergies Allergy/AdvReac Type Severity Reaction Status Date / Time ciprofloxacin Allergy Mild Hives Verified 09/15/23 09:09 metronidazole Allergy Mild Hives Verified 09/15/23 09:09 divalproex sodium Allergy Unknown Unknown Verified 09/15/23 09:09 vancomycin Allergy Unknown Unknown Verified 09/15/23 09:09 <Brynn Rangel PA-C - Last Filed: 09/15/23 16:41> Review of Systems Review of Systems: CONSTITUTIONAL: Denies fever EYES: Denies visual changes CARDIOVASCULAR: Denies chest pain RESPIRATORY: Denies dyspnea. GASTROINTESTINAL: Reports abdominal pain, and diarrhea. MUSCULOSKELETAL: Denies back pain NEUROLOGIC: Reports headache. Denies numbness, or weakness. <Brynn Rangel PA-C - Last Filed: 09/15/23 16:41> All systems reviewed & are unremarkable except as noted in HPI and below <Brynn Rangel PA-C - Last Filed: 09/15/23 16:41> [facility] Past Medical History Medical History: Medical History Abnormality of gait and mobility Acute appendicitis with localized peritonitis Acute vulvitis Adverse effect of unspecified antipsychotics and neuroleptics, sequela Antipsychotic-induced akathisia Anxiety Arm pain, right Asterixis Benign essential HTN Benign essential hypertension Benzodiazepine abuse, continuous Body mass index [BMI] 39.0-39.9, adult (11/12/16) Brain hypoxia Candidiasis, intertriginous Chronic kidney disease due to diabetes mellitus Chronic kidney disease, stage III (moderate) Chronic pain disorder Cognitive impairment Confusion Dependence on other enabling machines and devices Depressive type psychosis Diabetic nephropathy associated with type 2 diabetes mellitus Diabetic neuropathy Dietary cou
[2023-09-15 11:08] LABS: Lactic Acid Reflex 2.9 mmol/L (0.7-2.0)
[2023-09-15 11:09] LABS: Alanine Aminotransferase 23 U/L (6-35); Albumin Level 4.2 g/dL (3.5-5.1); Alkaline Phosphatase 100 U/L (38-126); Anion Gap 10 mmol/L (4-12); Aspartate Amino Transferase 24 U/L (14-36); Bilirubin,Total 0.4 mg/dL (0.2-1.3); Blood Urea Nitrogen 65 mg/dL (7-17); Calcium 9.4 mg/dL (8.4-10.2); Carbon Dioxide 21 mmol/L (22-30); Chloride 108 mmol/L (98-107); Estimated CRCL calculation 32 ml/min; Estimated Glomerular Filt Rate 22; Glucose 163 mg/dL (65-110); Potassium 4.5 mmol/L (3.4-5.0); Sodium 139 mmol/L (137-145)
[2023-09-15 11:12] LABS: INR 1.3; Prothrombin Time 16.1 Seconds (11.1-14.7)
[2023-09-15 11:13] LABS: Partial Thromboplastin Time 33.1 Seconds (22.3-36.8)
[2023-09-15 11:17] LABS: Lipase 81 U/L (23-300)
[2023-09-15] MEDS: SODIUM CHLORIDE 0.9% IV 500 ML 250 ML IV CONT (11:22)
[2023-09-15 11:29] LABS: Troponin I < 0.012 ng/mL (0.000-0.034)
[2023-09-15 11:50] LABS: Appearance Urine Turbid (Clear); Bacteria Urine 4+ /hpf; Bilirubin Urine Negative (Negative); Blood Urine 2+ (Negative); Color Urine Yellow (Yellow); Glucose Urine UA Negative (Negative); Ketones Urine Negative (Negative); Leukocyte Esterase Ur 3+ LEU/UL (Negative); Need Manual Microscopic Reviewed; Nitrate Urine Negative (Negative); Non Pathogenic Casts >20; Protein Urine 2+ mg/dL (Negative); Squamous Epithelial Cell Urine Moderate /hpf (Few); Urobilinogen Urine 0.2 mg/dL (<2.0); WBC Clumps Urine Present /HPF; WBC Urine >100 /hpf (0-3); pH Urine 7.5 (5.0-9.0)
[2023-09-15 11:52] LABS: Add Urine Microscopic? YES
[2023-09-15 13:55] LABS: Reflex Lactic Acid Yes or No Add Lactic
[2023-09-15] MEDS: SODIUM CHLORIDE 0.9% IV 500 ML 999 ML IV CONT (14:21)
[2023-09-15 14:28] LABS: Glucose Point of Care 98 mg/dl (65-105)
--- NOTE | 2023-09-15 15:06 | PM.IMHP ---
H&P: HPI History of Present Illness Date/Time: 09/15/23 15:06 Chief Complaint: Syncope Narrative: 68 y/o F presents here post-syncopal episode, diarrhea, and lightheadedness with PMH of HTN, benzo abuse, CKD, chronic pain disorder, cognitive impairment, diabetes, RAMAN, gout, iodine hypothyroidism, HLD, MALIA on CPAP, MDD. The patient presents here with nonbloody diarrhea, lightheadedness, and near-syncopal episode. Patient began having diarrhea 4-5 days ago, on average has had 7 BMs per day, and is not accompanied by abdominal pain. Stool has been brown. No recent abx courses per patient. Reports developing lightheadedness with the diarrhea. Patient went to her PCP today to address the diarrhea and lightheadedness. Per PCP note, staff stood the patient to weigh her on the scale when she fell backwards and was lowered to the ground by staff. Patient reports mild head strike without LOC. Reports some nasal tenderness, tenderness to the touch to her right forehead, LLE and hip discomfort post fall without signs of trauma or deformity. Denies headache, nausea, or light sensitivity post fall. Had additional fall at home on Tue while she was attempting to ambulate with her walker. Her daughter was able to catch her before she hit the floor. She reports fall due to BLE weakness, did not have a head strike, and no LOC. Patient does not wear supplemental O2 at baseline. No chest pain, shortness of breath, diaphoresis, nausea, vomiting, jaw pain, fatigue, or GERD-like symptoms. Never smoker. No cough or congestion. Initial VS at presentation: 90.3? F, HR 77, RR 22, 122/52, and 88% on RA. Now 98% on 2L NC. ED workup showed: No leukocytosis, no anemia, INR 1.3, creatinine 2.2 and GFR 22, lactic 2.9, and initial troponin negative. UA suspicious for UTI, however had moderate epithelial cells. CT head showed no acute intracranial findings and a of left CP angle meningioma unchanged from previous. CT of the abdomen/pelvis showed no acute intra-abdominal/pelvic process, 1.8 x 1.1 cm indeterminate mass of the medial right breast, diffuse hepatic steatosis. CT of the head/cervical spine/facial bones showed a left nasal bone fracture, left sphenoid sinusitis, and no acute osseous abnormality of the cervical spine. CXR showed no acute cardiopulmonary disease. Review of Systems Review of Systems: All systems reviewed & are unremarkable except as noted in HPI and below PMFSH Past Medical History Medical History Abnormality of gait and mobility Acute appendicitis with localized peritonitis Acute vulvitis Adverse effect of unspecified antipsychotics and neuroleptics, sequela Antipsychotic-induced akathisia Anxiety Arm pain, right Asterixis Benign essential HTN Benign essential hypertension Benzodiazepine abuse, continuous Body mass index [BMI] 39.0-39.9, adult (11/12/16) Brain hypoxia Candidiasis, intertriginous Chronic kidney disease due to diabetes mellitus Chronic kidney disease, stage III (moderate) Chronic pain disorder Cognitive impairment Confusion Dependence on other enabling machines and devices Depressive type psychosis Diabetic nephropathy associated with type 2 diabetes mellitus Diabetic neuropathy Dietary counseling and surveillance (03/02/18) Dyskinesia, tardive RAMAN (generalized anxiety disorder) RAMAN (generalized anxiety disorder) Gait abnormality Gastroparesis Gout Iodine hypothyroidism Left lateral knee pain 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
[2023-09-15 15:37] LABS: Lactic Acid 1.6 mmol/L (0.7-2.0)
[2023-09-15 16:23] LABS: Amphetamine Screen Urine Negative (Negative); Barbiturate Screen Urine Negative (Negative); Benzodiazepines Screen Urine Negative (Negative); Cannabinoid Screen Urine Negative (Negative); Cocaine Screen Urine Negative (Negative); Methadone Screen Urine Negative (Negative); Opiate Screen Urine Negative (Negative); Phencyclidine Screen Urine Negative (Negative)
[2023-09-15 16:46] LABS: Glucose Point of Care 96 mg/dl (65-105)
--- NOTE | 2023-09-15 18:35 | ADMGEN ---
This patient, Christine Michel, was admitted to Medical Room 259-01 at 1600. Patient/family oriented to hospital policies and general routines including ID bracelet, bed and alarms, visiting hours, pain management, procedures, bathroom and other care routines, personal items, smoking policy, room service/diet, and visiting hours. Information on how to activate the Rapid Response Team has been discussed. Patient/Family are encouraged to report perceived risks to care and to ask questions if they do not understand what they are told or what they should do.
[2023-09-15 20:35] LABS: Glucose Point of Care 166 mg/dl (65-105)
[2023-09-15 23:04] LABS: Magnesium 2.1 mg/dL (1.6-2.3)
[2023-09-15 23:17] LABS: Troponin I < 0.012 ng/mL (0.000-0.034)
[2023-09-16] VITALS (18 sets, daily range): BP systolic 103–158; BP diastolic 51–75; PULSE 72–114; RESP 18–20; TEMP 36.2–36.6; O2SAT 97–100
[2023-09-16] MEDS: MEROPENEM 1 GM/NS 100 ML 1 GM/100 ML BAG IVPB (00:31)
[2023-09-16] MEDS: PREGABALIN (*CRX) 50 MG CAPSULE 200 MG PO ×2 (00:35→20:47)
[2023-09-16] MEDS: QUEtiapine FUMARATE 100 MG TABLET PO ×3 (00:36→20:47)
[2023-09-16] MEDS: METOPROLOL TARTRATE 50 MG TAB PO ×3 (00:37→20:47)
[2023-09-16] MEDS: traMADol HCL (*CRX) 50 MG TABLET PO (00:37)
[2023-09-16] MEDS: APIXABAN 2.5 MG TABLET PO ×3 (00:38→20:46)
[2023-09-16] MEDS: MEMANTINE HCL XR 28 MG CAP PO ×2 (00:38→20:47)
[2023-09-16] MEDS: cloNIDine HCL 0.2 MG TABLET PO ×2 (00:39→20:47)
[2023-09-16] MEDS: INSULIN GLARGINE (*BKC) 100 UNITS/ML 40 UNITS SUB-Q ×3 (01:02→21:05)
[2023-09-16] MEDS: LACTATED RINGERS 1,000 ML 75 ML IV CONT (01:05)
[2023-09-16 03:43] LABS: Glucose Point of Care 158 mg/dl (65-105)
[2023-09-16 04:08] LABS: Basophils Percent Auto 0.5 % (0.2-1.2); Eosinophils Absolute Auto 0.3 K/mm3 (0-0.3); Eosinophils Percent Auto 4.5 % (0-4.4); Hematocrit 33.1 % (37.0-47.0); Hemoglobin 10.2 g/dL (12.0-15.0); Immature Granulocyte Absolute 0.03 K/mm3 (0.00-0.031); Immature Granulocyte Percent A 0.5 % (0-0.5); Lymphocytes Absolute Auto 1.22 K/mm3 (0.9-3.2); Lymphocytes Percent Auto 20.2 % (18.3-44.2); Mean Corpuscular HGB Conc 30.8 g/dl (32-36); Mean Corpuscular Hemoglobin 30.7 pg (26-34); Mean Corpuscular Volume 99.7 fl (80-100); Mean Platelet Volume 10.6 fl (7.4-10.4); Monocytes Absolute Auto 0.5 K/mm3 (0.1-0.6); Monocytes Percent Auto 8.4 % (2.6-8.5); Neutrophils Percent Auto 65.9 % (45.5-73.1); Platelet Count Result 168 k/mm3 (150-375); Red Blood Count 3.32 M/mm3 (4.2-5.4); White Blood Count 6.1 K/mm3 (4.5-10.0)
[2023-09-16 04:23] LABS: Alanine Aminotransferase 20 U/L (6-35); Albumin Level 3.2 g/dL (3.5-5.1); Alkaline Phosphatase 94 U/L (38-126); Anion Gap 7 mmol/L (4-12); Aspartate Amino Transferase 22 U/L (14-36); Bilirubin,Total 0.4 mg/dL (0.2-1.3); Blood Urea Nitrogen 62 mg/dL (7-17); Carbon Dioxide 22 mmol/L (22-30); Chloride 110 mmol/L (98-107); Estimated CRCL calculation 41 ml/min; Estimated Glomerular Filt Rate 28; Glucose 141 mg/dL (65-110); Potassium 4.4 mmol/L (3.4-5.0); Sodium 139 mmol/L (137-145)
[2023-09-16 07:54] LABS: Glucose Point of Care 115 mg/dl (65-105)
[2023-09-16] MEDS: FUROSEMIDE 40 MG TABLET PO (09:56)
[2023-09-16] MEDS: PREGABALIN (*CRX) 50 MG CAPSULE 100 MG PO ×2 (09:56→15:22)
[2023-09-16] MEDS: ASPIRIN 81 MG ENTERIC TABLET PO ×2 (09:56→18:26)
[2023-09-16] MEDS: BENZTROPINE MESYLATE 0.5 MG TABLET PO ×3 (09:56→18:27)
[2023-09-16] MEDS: ATORVASTATIN 10 MG TABLET PO (09:56)
[2023-09-16] MEDS: ACETAMINOPHEN 500 MG TABLET 1000 MG PO ×2 (09:57→18:26)
[2023-09-16] MEDS: MULTIVITAMINS /C LUTEIN (CENTRUM SILVER) TABLET *BKC 1 TAB PO (09:57)
[2023-09-16] MEDS: CEFEPIME 2 GM/NS 50 ML 2 GM/50 ML BAG IVPB ×2 (10:03→20:43)
[2023-09-16] MEDS: ERGOCALCIFEROL 50,000 UNITS CAPSULE 50000 UNITS PO (10:03)
--- NOTE | 2023-09-16 11:00 | P.PNIM_ITS ---
Progress Note: A&P Assessment and Plan (1) Acute hypoxic respiratory failure: Code(s): J96.01 - Acute respiratory failure with hypoxia Status: Resolved Assessment and Plan: 09/16/23: * Chest x-ray was negative * Patient currently on 2 L nasal cannula with O2 saturation 97% as she was noted to be hypoxic with a SpO2 of 80% while in the ED * Continue to wean O2 for sat greater than 92% (2) Syncope: Qualifiers: Syncope type: unspecified Qualified Code(s): R55 - Syncope and collapse Code(s): R55 - Syncope and collapse Status: Acute Assessment and Plan: 09/16/23: * Likely due to dehydration from diarrhea and orthostatic hypotension * EKG showed normal sinus rhythm * Troponin negative x2 * Continue to monitor orthostatic blood pressure * Continue telemetry monitoring * Chest x-ray was negative * Head/cervical spine/facial bone CT shown left nasal bone fracture, left sphenoid sinusitis * Head CT was negative for any acute intracranial finding, showed left CP angle meningioma unchanged from previous exam (3) Fall: Qualifiers: Encounter type: initial encounter Qualified Code(s): W19.XXXA - Unspecified fall, initial encounter Code(s): W19.XXXA - Unspecified fall, initial encounter Status: Acute Assessment and Plan: 09/16/23: * Reporting left leg pain since fall. Will get x-ray of left knee and left tib/fib * PT and OT ordered to eval and treat. (4) Acute kidney injury superimposed on CKD: Code(s): N17.9 - Acute kidney failure, unspecified; N18.9 - Chronic kidney disease, unspecified Status: Acute Assessment and Plan: 09/16/23: * Likely secondary to dehydration from diarrhea * Continue IV fluids * Initial creatinine 2.2, EGFR 22, creatinine now is 1.8, EGFR 28 * Baseline creatinine 1.1-1.3, baseline EGFR 32-49 * Continue to trend labs * Will hold Lasix (5) Diarrhea: Code(s): R19.7 - Diarrhea, unspecified Status: Acute Assessment and Plan: 09/16/23: * CT of the abdomen pelvis was negative for any acute inter abdominal/pelvic process, diffuse hepatic steatosis, and an incidental finding of a 1.8 x 1.1 cm indeterminate mass at the medial right breast * Continue to hold Linzess * Continue IV fluids and monitor I&O * Monitor orthostatic blood pressures * Continue to trend electrolytes and replace as needed (6) UTI (urinary tract infection): Qualifiers: Encounter type: initial encounter Indwelling urinary catheter type: indwelling urethral catheter Urinary tract infection type: catheter-associated UTI Qualified Code(s): T83.511A - Infection and inflammatory reaction due to indwelling urethral catheter, initial encounter; N39.0 - Urinary tract infection, site not specified Code(s): N39.0 - Urinary tract infection, site not specified Status: Acute Assessment and Plan: 09/16/23: * UA showed 2+ protein, 2+ blood, 3+ leukocytes, 3-5 urine RBC, greater than 100 urine WBC, moderate urine squamous epithelial cells seen, 4+ bacteria. * Patient does have a chronic Vigil secondary to neurogenic bladder which was exchanged yesterday 09/15/2023 * Urine culture obtained is pending * Patient was started on meropenem however we would change that to cefepime today considering she does have ESBL. Her most recent urine culture grew E coli however she did have history of Citrobacter freundii with multiple resistances in 2021 and Enterobacter cloacae complex with multiple resistances back in 2021.
--- NOTE | 2023-09-16 11:00 | PM.IMPN ---
Progress Note: A&P Assessment and Plan (1) Acute hypoxic respiratory failure: Code(s): J96.01 - Acute respiratory failure with hypoxia Status: Resolved Assessment and Plan: 09/16/23: Chest x-ray was negative Patient currently on 2 L nasal cannula with O2 saturation 97% as she was noted to be hypoxic with a SpO2 of 80% while in the ED Continue to wean O2 for sat greater than 92% (2) Syncope: Qualifiers: Syncope type: unspecified Qualified Code(s): R55 - Syncope and collapse Code(s): R55 - Syncope and collapse Status: Acute Assessment and Plan: 09/16/23: Likely due to dehydration from diarrhea and orthostatic hypotension EKG showed normal sinus rhythm Troponin negative x2 Continue to monitor orthostatic blood pressure Continue telemetry monitoring Chest x-ray was negative Head/cervical spine/facial bone CT shown left nasal bone fracture, left sphenoid sinusitis Head CT was negative for any acute intracranial finding, showed left CP angle meningioma unchanged from previous exam (3) Fall: Qualifiers: Encounter type: initial encounter Qualified Code(s): W19.XXXA - Unspecified fall, initial encounter Code(s): W19.XXXA - Unspecified fall, initial encounter Status: Acute Assessment and Plan: 09/16/23: Reporting left leg pain since fall. Will get x-ray of left knee and left tib/fib PT and OT ordered to eval and treat. (4) Acute kidney injury superimposed on CKD: Code(s): N17.9 - Acute kidney failure, unspecified; N18.9 - Chronic kidney disease, unspecified Status: Acute Assessment and Plan: 09/16/23: Likely secondary to dehydration from diarrhea Continue IV fluids Initial creatinine 2.2, EGFR 22, creatinine now is 1.8, EGFR 28 Baseline creatinine 1.1-1.3, baseline EGFR 32-49 Continue to trend labs Will hold Lasix (5) Diarrhea: Code(s): R19.7 - Diarrhea, unspecified Status: Acute Assessment and Plan: 09/16/23: CT of the abdomen pelvis was negative for any acute inter abdominal/pelvic process, diffuse hepatic steatosis, and an incidental finding of a 1.8 x 1.1 cm indeterminate mass at the medial right breast Continue to hold Linzess Continue IV fluids and monitor I&O Monitor orthostatic blood pressures Continue to trend electrolytes and replace as needed (6) UTI (urinary tract infection): Qualifiers: Encounter type: initial encounter Indwelling urinary catheter type: indwelling urethral catheter Urinary tract infection type: catheter-associated UTI Qualified Code(s): T83.511A - Infection and inflammatory reaction due to indwelling urethral catheter, initial encounter; N39.0 - Urinary tract infection, site not specified Code(s): N39.0 - Urinary tract infection, site not specified Status: Acute Assessment and Plan: 09/16/23: UA showed 2+ protein, 2+ blood, 3+ leukocytes, 3-5 urine RBC, greater than 100 urine WBC, moderate urine squamous epithelial cells seen, 4+ bacteria. Patient does have a chronic Vigil secondary to neurogenic bladder which was exchanged yesterday 09/15/2023 Urine culture obtained is pending Patient was started on meropenem however we would change that to cefepime today considering she does have ESBL. Her most recent urine culture grew E coli however she did have history of Citrobacter freundii with multiple resistances in 2021 and Enterobacter cloacae complex with multiple resistances back in 2021. (7) Breast mass: Qualifiers: Breast mass location: unspecified quadrant Laterality: right Qualified Code(s): N63.10 - Unspecified lump in the right breast, unspecified quadrant Code(s): N63.0 - Unspecified lump in unspecified breast Status: Acute Assessment and Plan: 09/16/23: CT of the abdomen pelvis showed an incidental finding of a 1.8 x 1.1 cm indeterminate mass at the medial right breas
[2023-09-16 11:32] LABS: Glucose Point of Care 183 mg/dl (65-105)
[2023-09-16 16:51] LABS: Glucose Point of Care 136 mg/dl (65-105)
[2023-09-16] MEDS: MICONAZOLE NITRATE 2% CREAM 30 GM TUBE 1 APPLIC TOPICAL (17:00)
[2023-09-16] MEDS: TRIAMCINOLONE ACET 0.1% CREAM 15 GM TUBE 1 APPLIC TOPICAL (17:00)
[2023-09-16] MEDS: BETAMETHASONE/CLOTRIMAZOLE CREAM 15 GM TUBE 1 APPLIC TOPICAL (17:00)
[2023-09-16] MEDS: DULoxetine HCL 30 MG CAPSULE.DR PO (18:27)
[2023-09-16 20:46] LABS: Glucose Point of Care 179 mg/dl (65-105)
[2023-09-16 23:10] LABS: Glucose Point of Care 146 mg/dl (65-105)
[2023-09-17] VITALS (13 sets, daily range): BP systolic 114–147; BP diastolic 54–64; PULSE 67–78; RESP 20; TEMP 36.5–36.9; O2SAT 97–99
[2023-09-17 08:04] LABS: Glucose Point of Care 123 mg/dl (65-105)
[2023-09-17] MEDS: PREGABALIN (*CRX) 50 MG CAPSULE 100 MG PO ×2 (08:29→12:35)
[2023-09-17] MEDS: ASPIRIN 81 MG ENTERIC TABLET PO ×2 (08:30→17:02)
[2023-09-17] MEDS: ACETAMINOPHEN 500 MG TABLET 1000 MG PO ×2 (08:30→17:02)
[2023-09-17] MEDS: ATORVASTATIN 10 MG TABLET PO (08:30)
[2023-09-17] MEDS: APIXABAN 2.5 MG TABLET PO ×2 (08:30→22:13)
[2023-09-17] MEDS: BENZTROPINE MESYLATE 0.5 MG TABLET PO ×3 (08:31→17:02)
[2023-09-17] MEDS: QUEtiapine FUMARATE 100 MG TABLET PO ×2 (08:31→22:13)
[2023-09-17] MEDS: MULTIVITAMINS /C LUTEIN (CENTRUM SILVER) TABLET *BKC 1 TAB PO (08:31)
[2023-09-17] MEDS: CEFEPIME 2 GM/NS 50 ML 2 GM/50 ML BAG IVPB (08:32)
[2023-09-17] MEDS: METOPROLOL TARTRATE 50 MG TAB PO ×2 (08:32→22:12)
[2023-09-17] MEDS: INSULIN GLARGINE (*BKC) 100 UNITS/ML 40 UNITS SUB-Q ×2 (08:32→22:18)
[2023-09-17] MEDS: TRIAMCINOLONE ACET 0.1% CREAM 15 GM TUBE 1 APPLIC TOPICAL ×2 (11:17→17:03)
[2023-09-17] MEDS: BETAMETHASONE/CLOTRIMAZOLE CREAM 15 GM TUBE 1 APPLIC TOPICAL ×2 (11:17→17:03)
[2023-09-17] MEDS: MICONAZOLE NITRATE 2% CREAM 30 GM TUBE 1 APPLIC TOPICAL ×2 (11:17→17:03)
[2023-09-17 11:42] LABS: Basophils Percent Auto 0.6 % (0.2-1.2); Eosinophils Absolute Auto 0.2 K/mm3 (0-0.3); Eosinophils Percent Auto 3.4 % (0-4.4); Hematocrit 34.8 % (37.0-47.0); Hemoglobin 10.9 g/dL (12.0-15.0); Immature Granulocyte Absolute 0.02 K/mm3 (0.00-0.031); Immature Granulocyte Percent A 0.4 % (0-0.5); Lymphocytes Absolute Auto 1.17 K/mm3 (0.9-3.2); Mean Corpuscular HGB Conc 31.3 g/dl (32-36); Mean Corpuscular Hemoglobin 31.1 pg (26-34); Mean Corpuscular Volume 99.4 fl (80-100); Mean Platelet Volume 10.9 fl (7.4-10.4); Monocytes Absolute Auto 0.4 K/mm3 (0.1-0.6); Monocytes Percent Auto 7.7 % (2.6-8.5); Neutrophils Absolute Auto 3.5 K/mm3 (1.3-6.7); Neutrophils Percent Auto 65.9 % (45.5-73.1); Platelet Count Result 163 k/mm3 (150-375); Red Cell Distribution Width 16.7 % (11.5-14.5); White Blood Count 5.3 K/mm3 (4.5-10.0)
[2023-09-17 12:00] LABS: Alanine Aminotransferase 21 U/L (6-35); Albumin Level 3.9 g/dL (3.5-5.1); Alkaline Phosphatase 95 U/L (38-126); Anion Gap 8 mmol/L (4-12); Aspartate Amino Transferase 22 U/L (14-36); Bilirubin,Total 0.4 mg/dL (0.2-1.3); Blood Urea Nitrogen 59 mg/dL (7-17); Calcium 9.6 mg/dL (8.4-10.2); Carbon Dioxide 23 mmol/L (22-30); Chloride 112 mmol/L (98-107); Estimated CRCL calculation 41 ml/min; Estimated Glomerular Filt Rate 28; Glucose 173 mg/dL (65-110); Potassium 4.7 mmol/L (3.4-5.0); Sodium 143 mmol/L (137-145)
[2023-09-17 12:01] LABS: Glucose Point of Care 168 mg/dl (65-105)
--- NOTE | 2023-09-17 13:55 | P.PNIM_ITS ---
Progress Note: A&P Assessment and Plan (1) Acute hypoxic respiratory failure: Code(s): J96.01 - Acute respiratory failure with hypoxia Status: Resolved Assessment and Plan: 09/16/23: * Chest x-ray was negative * Patient currently on 2 L nasal cannula with O2 saturation 97% as she was noted to be hypoxic with a SpO2 of 80% while in the ED * Continue to wean O2 for sat greater than 92% 09/17/23: * Continue to wean oxygen for sat greater than 92 (2) Syncope: Qualifiers: Syncope type: unspecified Qualified Code(s): R55 - Syncope and collapse Code(s): R55 - Syncope and collapse Status: Acute Assessment and Plan: 09/16/23: * Likely due to dehydration from diarrhea and orthostatic hypotension * EKG showed normal sinus rhythm * Troponin negative x2 * Continue to monitor orthostatic blood pressure * Continue telemetry monitoring * Chest x-ray was negative * Head/cervical spine/facial bone CT shown left nasal bone fracture, left sphenoid sinusitis * Head CT was negative for any acute intracranial finding, showed left CP angle meningioma unchanged from previous exam 09/17/23: * Orthostatic blood pressures remaining stable (3) Fall: Qualifiers: Encounter type: initial encounter Qualified Code(s): W19.XXXA - Unspecified fall, initial encounter Code(s): W19.XXXA - Unspecified fall, initial encounter Status: Acute Assessment and Plan: 09/16/23: * Reporting left leg pain since fall. Will get x-ray of left knee and left tib/fib * PT and OT ordered to eval and treat. 09/17/23: * X-ray of left knee and left tib-fib showed polyarticular arthritis and moderate size effusion of the left knee likely posttraumatic from falling * Continue PT and OT (4) Acute kidney injury superimposed on CKD: Code(s): N17.9 - Acute kidney failure, unspecified; N18.9 - Chronic kidney disease, unspecified Status: Acute Assessment and Plan: 09/16/23: * Likely secondary to dehydration from diarrhea * Continue IV fluids * Initial creatinine 2.2, EGFR 22, creatinine now is 1.8, EGFR 28 * Baseline creatinine 1.1-1.3, baseline EGFR 32-49 * Continue to trend labs * Will hold Lasix 09/17/23: * Creatinine today 1.8, EGFR 28 * Stop IV fluids (5) Diarrhea: Code(s): R19.7 - Diarrhea, unspecified Status: Acute Assessment and Plan: 09/16/23: * CT of the abdomen pelvis was negative for any acute inter abdominal/pelvic process, diffuse hepatic steatosis, and an incidental finding of a 1.8 x 1.1 cm indeterminate mass at the medial right breast * Continue to hold Linzess * Continue IV fluids and monitor I&O * Monitor orthostatic blood pressures * Continue to trend electrolytes and replace as needed 09/17/23: * Continue to monitor I&O * Stop IV fluids, increase oral intake (6) UTI (urinary tract infection): Qualifiers: Encounter type: initial encounter Indwelling urinary catheter type: indwelling urethral catheter Urinary tract infection type: catheter-associated UTI Qualified Code(s): T83.511A - Infection and inflammatory reaction due to indwelling urethral catheter, initial encounter; N39.0 - Urinary tract infection, site not specified Code(s): N39.0 - Urinary tract infection, site not specified Status: Acute Assessment and Plan: 09/16/23: * UA showed 2+ protein, 2+ blood, 3+ leukocytes, 3-5 urine RBC, greater than 100 urine WBC, moderate urine squamous epithelial cells s
--- NOTE | 2023-09-17 13:55 | PM.IMPN ---
Progress Note: A&P Assessment and Plan (1) Acute hypoxic respiratory failure: Code(s): J96.01 - Acute respiratory failure with hypoxia Status: Resolved Assessment and Plan: 09/16/23: Chest x-ray was negative Patient currently on 2 L nasal cannula with O2 saturation 97% as she was noted to be hypoxic with a SpO2 of 80% while in the ED Continue to wean O2 for sat greater than 92% 09/17/23: Continue to wean oxygen for sat greater than 92 (2) Syncope: Qualifiers: Syncope type: unspecified Qualified Code(s): R55 - Syncope and collapse Code(s): R55 - Syncope and collapse Status: Acute Assessment and Plan: 09/16/23: Likely due to dehydration from diarrhea and orthostatic hypotension EKG showed normal sinus rhythm Troponin negative x2 Continue to monitor orthostatic blood pressure Continue telemetry monitoring Chest x-ray was negative Head/cervical spine/facial bone CT shown left nasal bone fracture, left sphenoid sinusitis Head CT was negative for any acute intracranial finding, showed left CP angle meningioma unchanged from previous exam 09/17/23: Orthostatic blood pressures remaining stable (3) Fall: Qualifiers: Encounter type: initial encounter Qualified Code(s): W19.XXXA - Unspecified fall, initial encounter Code(s): W19.XXXA - Unspecified fall, initial encounter Status: Acute Assessment and Plan: 09/16/23: Reporting left leg pain since fall. Will get x-ray of left knee and left tib/fib PT and OT ordered to eval and treat. 09/17/23: X-ray of left knee and left tib-fib showed polyarticular arthritis and moderate size effusion of the left knee likely posttraumatic from falling Continue PT and OT (4) Acute kidney injury superimposed on CKD: Code(s): N17.9 - Acute kidney failure, unspecified; N18.9 - Chronic kidney disease, unspecified Status: Acute Assessment and Plan: 09/16/23: Likely secondary to dehydration from diarrhea Continue IV fluids Initial creatinine 2.2, EGFR 22, creatinine now is 1.8, EGFR 28 Baseline creatinine 1.1-1.3, baseline EGFR 32-49 Continue to trend labs Will hold Lasix 09/17/23: Creatinine today 1.8, EGFR 28 Stop IV fluids (5) Diarrhea: Code(s): R19.7 - Diarrhea, unspecified Status: Acute Assessment and Plan: 09/16/23: CT of the abdomen pelvis was negative for any acute inter abdominal/pelvic process, diffuse hepatic steatosis, and an incidental finding of a 1.8 x 1.1 cm indeterminate mass at the medial right breast Continue to hold Linzess Continue IV fluids and monitor I&O Monitor orthostatic blood pressures Continue to trend electrolytes and replace as needed 09/17/23: Continue to monitor I&O Stop IV fluids, increase oral intake (6) UTI (urinary tract infection): Qualifiers: Encounter type: initial encounter Indwelling urinary catheter type: indwelling urethral catheter Urinary tract infection type: catheter-associated UTI Qualified Code(s): T83.511A - Infection and inflammatory reaction due to indwelling urethral catheter, initial encounter; N39.0 - Urinary tract infection, site not specified Code(s): N39.0 - Urinary tract infection, site not specified Status: Acute Assessment and Plan: 09/16/23: UA showed 2+ protein, 2+ blood, 3+ leukocytes, 3-5 urine RBC, greater than 100 urine WBC, moderate urine squamous epithelial cells seen, 4+ bacteria. Patient does have a chronic Vigil secondary to neurogenic bladder which was exchanged yesterday 09/15/2023 Urine culture obtained is pending Patient was started on meropenem however we would change that to cefepime today considering she does have ESBL. Her most recent urine culture grew E coli however she did have history of Citrobacter freundii with multiple resistances in 2021 and Enterobacter cloacae complex with multiple resistances back in 2021. 08/20
[2023-09-17 16:50] LABS: Glucose Point of Care 135 mg/dl (65-105)
[2023-09-17] MEDS: DULoxetine HCL 30 MG CAPSULE.DR PO (17:05)
[2023-09-17 20:58] LABS: Glucose Point of Care 224 mg/dl (65-105)
[2023-09-17] MEDS: traMADol HCL (*CRX) 50 MG TABLET PO (22:11)
[2023-09-17] MEDS: PREGABALIN (*CRX) 50 MG CAPSULE 200 MG PO (22:12)
[2023-09-17] MEDS: MEMANTINE HCL XR 28 MG CAP PO (22:12)
[2023-09-17] MEDS: cloNIDine HCL 0.2 MG TABLET PO (22:12)
[2023-09-18] VITALS (12 sets, daily range): BP systolic 126–147; BP diastolic 49–90; PULSE 60–80; RESP 14–20; TEMP 36.1–36.6; O2SAT 93–99
[2023-09-18 07:21] LABS: Basophils Percent Auto 0.5 % (0.2-1.2); Eosinophils Absolute Auto 0.2 K/mm3 (0-0.3); Eosinophils Percent Auto 5.2 % (0-4.4); Hematocrit 33.3 % (37.0-47.0); Hemoglobin 10.4 g/dL (12.0-15.0); Immature Granulocyte Absolute 0.03 K/mm3 (0.00-0.031); Immature Granulocyte Percent A 0.7 % (0-0.5); Lymphocytes Absolute Auto 1.22 K/mm3 (0.9-3.2); Lymphocytes Percent Auto 28.9 % (18.3-44.2); Mean Corpuscular HGB Conc 31.2 g/dl (32-36); Mean Corpuscular Volume 99.1 fl (80-100); Mean Platelet Volume 10.2 fl (7.4-10.4); Monocytes Absolute Auto 0.4 K/mm3 (0.1-0.6); Monocytes Percent Auto 9.7 % (2.6-8.5); Neutrophils Absolute Auto 2.3 K/mm3 (1.3-6.7); Platelet Count Result 148 k/mm3 (150-375); Red Blood Count 3.36 M/mm3 (4.2-5.4); Red Cell Distribution Width 16.6 % (11.5-14.5); White Blood Count 4.2 K/mm3 (4.5-10.0)
[2023-09-18 07:33] LABS: Alanine Aminotransferase 20 U/L (6-35); Albumin Level 3.5 g/dL (3.5-5.1); Alkaline Phosphatase 85 U/L (38-126); Anion Gap 5 mmol/L (4-12); Aspartate Amino Transferase 21 U/L (14-36); Bilirubin,Total 0.3 mg/dL (0.2-1.3); Blood Urea Nitrogen 51 mg/dL (7-17); Calcium 9.7 mg/dL (8.4-10.2); Carbon Dioxide 26 mmol/L (22-30); Chloride 112 mmol/L (98-107); Estimated CRCL calculation 53 ml/min; Estimated Glomerular Filt Rate 37; Glucose 96 mg/dL (65-110); Potassium 4.2 mmol/L (3.4-5.0); Sodium 143 mmol/L (137-145)
[2023-09-18 08:08] LABS: Glucose Point of Care 102 mg/dl (65-105)
[2023-09-18] MEDS: ATORVASTATIN 10 MG TABLET PO (08:25)
[2023-09-18] MEDS: METOPROLOL TARTRATE 50 MG TAB PO (08:25)
[2023-09-18] MEDS: QUEtiapine FUMARATE 100 MG TABLET PO (08:25)
[2023-09-18] MEDS: BENZTROPINE MESYLATE 0.5 MG TABLET PO ×2 (08:26→12:19)
[2023-09-18] MEDS: ACETAMINOPHEN 500 MG TABLET 1000 MG PO (08:26)
[2023-09-18] MEDS: APIXABAN 2.5 MG TABLET PO (08:26)
[2023-09-18] MEDS: INSULIN GLARGINE (*BKC) 100 UNITS/ML 40 UNITS SUB-Q (08:26)
[2023-09-18] MEDS: ASPIRIN 81 MG ENTERIC TABLET PO (08:26)
[2023-09-18] MEDS: MULTIVITAMINS /C LUTEIN (CENTRUM SILVER) TABLET *BKC 1 TAB PO (08:26)
[2023-09-18] MEDS: PREGABALIN (*CRX) 50 MG CAPSULE 100 MG PO ×2 (08:36→12:19)
--- NOTE | 2023-09-18 10:38 | PM.DS ---
DS: Admitting Diagnosis Discharge Date 09/18/23 Admitting Diagnosis Acute hypoxic respiratory failure Syncope Acute kidney injury superimposed on chronic kidney disease Diarrhea UTI Breast mass Type 2 diabetes mellitus Hypertension DS: Discharge Diagnosis Discharge Diagnosis (1) Acute hypoxic respiratory failure: Code(s): J96.01 - Acute respiratory failure with hypoxia Status: Resolved (2) Syncope: Qualifiers: Syncope type: unspecified Qualified Code(s): R55 - Syncope and collapse Code(s): R55 - Syncope and collapse Status: Acute (3) Fall: Qualifiers: Encounter type: initial encounter Qualified Code(s): W19.XXXA - Unspecified fall, initial encounter Code(s): W19.XXXA - Unspecified fall, initial encounter Status: Acute (4) Acute kidney injury superimposed on CKD: Code(s): N17.9 - Acute kidney failure, unspecified; N18.9 - Chronic kidney disease, unspecified Status: Acute (5) Diarrhea: Code(s): R19.7 - Diarrhea, unspecified Status: Acute (6) UTI (urinary tract infection): Qualifiers: Encounter type: initial encounter Indwelling urinary catheter type: indwelling urethral catheter Urinary tract infection type: catheter-associated UTI Qualified Code(s): T83.511A - Infection and inflammatory reaction due to indwelling urethral catheter, initial encounter; N39.0 - Urinary tract infection, site not specified Code(s): N39.0 - Urinary tract infection, site not specified Status: Acute (7) Breast mass: Qualifiers: Breast mass location: unspecified quadrant Laterality: right Qualified Code(s): N63.10 - Unspecified lump in the right breast, unspecified quadrant Code(s): N63.0 - Unspecified lump in unspecified breast Status: Acute (8) T2DM (type 2 diabetes mellitus): Qualifiers: Diabetes mellitus complication detail: with nephropathy Diabetes mellitus complication status: with kidney complications 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 Qualified Code(s): E11.21 - Type 2 diabetes mellitus with diabetic nephropathy; Z79.4 - penitentiary (current) use of insulin Code(s): E11.9 - Type 2 diabetes mellitus without complications Status: Acute (9) HTN (hypertension), benign: Code(s): I10 - Essential (primary) hypertension Status: Chronic DS: Summary Hospital Course Reason for hospitalization: Acute hypoxic respiratory failure Syncope Acute kidney injury superimposed on chronic kidney disease Diarrhea UTI Breast mass Type 2 diabetes mellitus Hypertension Hospital Course: This is a 68-year-old female who presented to the hospital with complaint of diarrhea, lightheadedness, near syncopal episode. Workup in the hospital included a head CT which shown no acute intracranial finding, left CP angle meningioma unchanged from previous exam. Abdomen/pelvis CT shown no acute intra-abdominal/pelvic process, 1.8 x 1.1 cm indeterminate mass at the medial right breast, diffuse hepatic steatosis. Head/cervical spine/facial bone CT revealed a left nasal bone fracture, left sphenoid sinusitis. Chest x-ray was negative. Initial labs revealed a normal white blood cell count of 8.1, INR 1.3, bicarb 21, BUN 65, creatinine 2.2, EGFR 22, lactic acid 2.9> 1.6, liver enzymes were normal, troponin negative x2, lipase 81. UA was obtained which showed 2+ urine protein, 2+ urine blood, 3+ leukocyte, 3-5 urine RBC, greater than 100 urine WBC, moderate urine squamous epithelial cells, 4+ urine bacteria. Urine tox screen was negative. Urine culture was obtained and is pending. Patient was started on meropenem and given IV fluid bolus in the ED. During course of her stay, creatinine has trended down towards baseline, current creatinine 1.4. SCAR resolved with fluids. UTI was ruled out and antibiotics were discontinued. She was weaned off of her oxygen. She denies any n
[2023-09-18 11:59] LABS: Glucose Point of Care 106 mg/dl (65-105)
[2023-09-18] MEDS: MICONAZOLE NITRATE 2% CREAM 30 GM TUBE 1 APPLIC TOPICAL (15:34)
[2023-09-18] MEDS: TRIAMCINOLONE ACET 0.1% CREAM 15 GM TUBE 1 APPLIC TOPICAL (15:34)
[2023-09-18] MEDS: BETAMETHASONE/CLOTRIMAZOLE CREAM 15 GM TUBE 1 APPLIC TOPICAL (15:34)
== END 2023-09-18 16:55 | disposition home health service (06) | DRG 682 ==
LOC: ANHED 11:36 → ANH2MED 15:36
PROVIDERS: Emergency Medicine; Student in an Organized Health Care Education/Training Program; Admitting Provider General Practice; Emergency Provider Physician Assistant; PCP Family Medicine; Visit Provider Nurse Practitioner Acute Care
DX: N17.9 Acute kidney failure, unspecified (principal); J96.01 Acute respiratory failure with hypoxia; T83.511A Infection and inflammatory reaction due to indwelling urethral catheter, initial encounter; E66.2 Morbid (severe) obesity with alveolar hypoventilation; Z68.41 Body mass index [BMI] 40.0-44.9, adult; F32.3 Major depressive disorder, single episode, severe with psychotic features; I95.1 Orthostatic hypotension; E86.0 Dehydration; I12.9 Hypertensive chronic kidney disease with stage 1 through stage 4 chronic kidney disease, or unspecified chronic kidney disease; N18.30 Chronic kidney disease, stage 3 unspecified; E11.22 Type 2 diabetes mellitus with diabetic chronic kidney disease; E11.43 Type 2 diabetes mellitus with diabetic autonomic (poly)neuropathy; E01.8 Other iodine-deficiency related thyroid disorders and allied conditions; E78.2 Mixed hyperlipidemia; E55.9 Vitamin D deficiency, unspecified; K31.84 Gastroparesis; N31.9 Neuromuscular dysfunction of bladder, unspecified; M15.9 Polyosteoarthritis, unspecified; N63.10 Unspecified lump in the right breast, unspecified quadrant; R19.7 Diarrhea, unspecified; R29.6 Repeated falls; R27.8 Other lack of coordination; G89.29 Other chronic pain; G31.84 Mild cognitive impairment of uncertain or unknown etiology; G24.01 Drug induced subacute dyskinesia; G25.71 Drug induced akathisia; T43.505S Adverse effect of unspecified antipsychotics and neuroleptics, sequela; F41.1 Generalized anxiety disorder; Z79.82 Long term (current) use of aspirin; Z79.01 Long term (current) use of anticoagulants; Z79.4 Long term (current) use of insulin; Z79.899 Other long term (current) drug therapy; S02.2XXA Fracture of nasal bones, initial encounter for closed fracture; W19.XXXA Unspecified fall, initial encounter; Z91.81 History of falling
CPT/HCPCS: 36415; 70450; 70486; 71046; 72125; 73560; 73590; 74176; 80053; 80307; 81001; 82948; 83605; 83690; 83735; 84484; 85025; 85610; 85730; 87086; 87088; 93005; 96360; 96361; 96365; 96375; 97161; 97530; 99285; A9270; G0378; J0692; J1815; J2185; J7040; J7120

== ENCOUNTER 2023-09-29 12:56 | Outpatient (CLI) | payer MEDICARE, OTHER, SELFPAY ==
--- NOTE | ~2023-09-29 | MMUS_ITS ---
EXAMINATION: MM diagnostic ferdinand BI w joaquina, US breast RT limited HISTORY: Mass seen on recent examination. TECHNIQUE: Additional 3-D tomosynthesis images of the breasts were performed and synthetic 2-D images were generated. CAD analysis was submitted and interpreted. High resolution Limited right breast ult rasound was performed. COMPARISON: Comparison to multiple prior studies sequentially, with oldest reviewed study dated 12/14. BREAST PARENCHYMAL COMPOSITION: Not dense: There are scattered areas of fibroglandular density. FINDINGS: MAMMOGRAPHIC FINDINGS: There is a new mass in the lower inner quadrant of the right breast, middle third with indistinct mar gins. The left breast is stable without evidence for malignancy. ULTRASOUND: Limited right breast ultrasound: At 4:00, 11 cm from the nipple there is an irregular shaped thick-wa lled mass with central cystic changes. This mass measures approximately 1.9 x 1.1 cm. IMPRESSION: 1. Irregular shaped thick-walled mass 4:00, 11 cm from the nipple in the right breast with central cy stic changes. This corresponds to the mammographic finding. 2. Ultrasound-guided biopsy/aspiration recommended. BI-RADS CATEGORY 4-SUSPICIOUS ABNORMALITY Reviewed, dictated and finalized at location B. IMPRESSION: 1. Irregular shaped thick-walled mass 4:00, 11 cm from the nipple in the right breast with central cystic changes. This corresponds to the mammographic findin g. 2. Ultrasound-guided biopsy/aspiration recommended. BI-RADS CATEGORY 4-SUSPICIOUS ABNORMALITY
== END 2023-09-29 12:57 | disposition home or self-care (01) ==
PROVIDERS: PCP Family Medicine; Visit Provider Physician Assistant
DX: N63.10 Unspecified lump in the right breast, unspecified quadrant (principal); R92.8 Other abnormal and inconclusive findings on diagnostic imaging of breast
CPT/HCPCS: 76642; 77062; 77066; G0279

== ENCOUNTER 2023-10-15 12:24 | Emergency (ER) | payer MEDICARE, OTHER, SELFPAY ==
[2023-10-15 12:34] VITALS: BP 159/81; PULSE 82; RESP 18; TEMP 37.2; O2SAT 95
--- NOTE | 2023-10-15 14:47 | ED.GENADULT ---
HPI - General Adult General Chief complaint: Urogenital-Female Stated complaint: Abnormal Ostomy Discharge Color Time Seen by Provider: 10/15/23 14:21 History of Present Illness HPI narrative: 68-year-old female present to the emergency department for evaluation for blood colored Vigil catheter output. Patient has had a Vigil catheter for urinary bladder dysfunction. Patient states she has her Vigil catheter changed monthly. Patient reports her last urinary tract infection was approximately 4 months ago. Patient states she had the change in Vigil catheter output today when she noticed it looked more blood tinged. Patient states further output has not been blood tinged. Patient states she had some associated nausea but denies any vomiting or abdominal pain. Patient denies any vaginal bleeding vaginal discharge. Related Data Home Medications Medication Instructions Recorded Confirmed acetaminophen 500 mg tablet 1,000 mg PO BID Pain 07/10/20 09/15/23 (Tylenol Extra Strength) multivit with minerals-iron 18 1 tablet PO DAILY 03/06/21 09/15/23 mg-folic ac 400 mcg-vit K 25 mcg tablet (Adults Multivitamin) aspirin 81 mg tablet,delayed 81 mg PO BID 10/30/21 09/15/23 release clonidine HCl 0.1 mg tablet 0.2 mg PO HS 05/18/23 09/15/23 clotrimazole-betamethasone 1 1 applic topical BID 05/18/23 09/15/23 %-0.05 % topical cream dextrin 3 gram/4 gram oral powder 2 tsp PO TID PRN Constipation 05/18/23 09/15/23 (Clear Fiber) lactobacillus combination no.8 3 See Rx Instructions .Route .COMPLEX 05/18/23 09/15/23 billion cell capsule nystatin-triamcinolone topical 1 applic topical BID YEAST/RASH 06/28/23 09/15/23 cream Allergies Allergy/AdvReac Type Severity Reaction Status Date / Time ciprofloxacin Allergy Mild Hives Verified 10/13/23 11:02 metronidazole Allergy Mild Hives Verified 10/13/23 11:02 divalproex sodium Allergy Unknown Unknown Verified 10/13/23 11:02 vancomycin Allergy Unknown Unknown Verified 10/13/23 11:02 Review of Systems Review of Systems: All systems reviewed & are unremarkable except as noted in HPI and below PMFSH Past Medical History Medical History (Updated 10/15/23 @ 15:48 by Dereje Montoya MD) Abnormality of gait and mobility Acute appendicitis with localized peritonitis Acute vulvitis Adverse effect of unspecified antipsychotics and neuroleptics, sequela Antipsychotic-induced akathisia Anxiety Arm pain, right Asterixis Benign essential HTN Benign essential hypertension Benzodiazepine abuse, continuous Body mass index [BMI] 39.0-39.9, adult (11/12/16) Brain hypoxia Candidiasis, intertriginous Chronic kidney disease due to diabetes mellitus Chronic kidney disease, stage III (moderate) Chronic pain disorder Cognitive impairment Confusion Dependence on other enabling machines and devices Depressive type psychosis Diabetic nephropathy associated with type 2 diabetes mellitus Diabetic neuropathy Dietary counseling and surveillance (03/02/18) Dyskinesia, tardive RAMAN (generalized anxiety disorder) Gait abnormality Gastroparesis Gout Iodine hypothyroidism Left lateral knee pain 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 Metabolic encephalopathy Mild cognitive impairment with memory loss Mixed hyperlipidemia Morbid obesity with BMI of 40.0-44.9, adult Neuroleptic-induced tardive dyskinesia Obesity hypoventilation syndrome Opioid abuse with intoxication with complication MALIA on CPAP Polypharmacy Post-menopausal Severe recurrent major depressive disorder with psychotic features Type 2 diabetes mellitus with diabetic neuropathy, with long-term current use of insulin Type 2 diabetes mellitus with hyperglycemia Type 2 diabetes mellitus with stage 3 chronic kidney disease Unspecified acute appendicitis Urticaria due to drug allergy Vitamin D deficiency, unspecified Wrist pain, right Surgical History Surgical History Previous soni
[2023-10-15 15:04] LABS: Basophils Percent Auto 0.4 % (0.2-1.2); Eosinophils Absolute Auto 0.2 K/mm3 (0-0.3); Eosinophils Percent Auto 3.5 % (0-4.4); Hematocrit 35.8 % (37.0-47.0); Hemoglobin 11.4 g/dL (12.0-15.0); Immature Granulocyte Absolute 0.03 K/mm3 (0.00-0.031); Immature Granulocyte Percent A 0.5 % (0-0.5); Lymphocytes Absolute Auto 1.17 K/mm3 (0.9-3.2); Lymphocytes Percent Auto 21.3 % (18.3-44.2); Mean Corpuscular HGB Conc 31.8 g/dl (32-36); Mean Corpuscular Hemoglobin 31.8 pg (26-34); Mean Corpuscular Volume 99.7 fl (80-100); Mean Platelet Volume 10.8 fl (7.4-10.4); Monocytes Absolute Auto 0.5 K/mm3 (0.1-0.6); Monocytes Percent Auto 8.9 % (2.6-8.5); Neutrophils Absolute Auto 3.6 K/mm3 (1.3-6.7); Neutrophils Percent Auto 65.4 % (45.5-73.1); Platelet Count Result 168 k/mm3 (150-375); Red Blood Count 3.59 M/mm3 (4.2-5.4); Red Cell Distribution Width 16.8 % (11.5-14.5); White Blood Count 5.5 K/mm3 (4.5-10.0)
[2023-10-15 15:15] LABS: Alanine Aminotransferase 27 U/L (6-35); Albumin Level 3.8 g/dL (3.5-5.1); Alkaline Phosphatase 142 U/L (38-126); Anion Gap 8 mmol/L (4-12); Aspartate Amino Transferase 27 U/L (14-36); Bilirubin,Total 0.4 mg/dL (0.2-1.3); Blood Urea Nitrogen 51 mg/dL (7-17); Calcium 10.1 mg/dL (8.4-10.2); Carbon Dioxide 31 mmol/L (22-30); Chloride 100 mmol/L (98-107); Estimated CRCL calculation 42 ml/min; Estimated Glomerular Filt Rate 32; Glucose 126 mg/dL (65-110); Potassium 4.7 mmol/L (3.4-5.0); Sodium 139 mmol/L (137-145)
[2023-10-15 15:32] LABS: Appearance Urine Cloudy (Clear); Bacteria Urine 1+ /hpf; Bilirubin Urine Negative (Negative); Blood Urine 1+ (Negative); Color Urine Yellow (Yellow); Glucose Urine UA Negative (Negative); Ketones Urine Negative (Negative); Leukocyte Esterase Ur 3+ LEU/UL (Negative); Need Manual Microscopic Reviewed; Nitrate Urine Negative (Negative); Protein Urine Negative (Negative); Specific Grav Ur 1.011 (1.001-1.035); Squamous Epithelial Cell Urine None Seen /hpf (Few); Urobilinogen Urine 0.2 mg/dL (<2.0); WBC Urine >100 /hpf (0-3); pH Urine 5.5 (5.0-9.0)
[2023-10-15 15:36] LABS: Add Urine Microscopic? YES
[2023-10-15] MEDS: CEPHALEXIN 500 MG CAPSULE PO (16:11)
== END 2023-10-15 16:02 | disposition home or self-care (01) ==
PROVIDERS: Emergency Provider Emergency Medicine; PCP Family Medicine
DX: N39.0 Urinary tract infection, site not specified (principal); F41.8 Other specified anxiety disorders; N18.30 Chronic kidney disease, stage 3 unspecified; I12.9 Hypertensive chronic kidney disease with stage 1 through stage 4 chronic kidney disease, or unspecified chronic kidney disease; E11.22 Type 2 diabetes mellitus with diabetic chronic kidney disease; E66.01 Morbid (severe) obesity due to excess calories; Z68.41 Body mass index [BMI] 40.0-44.9, adult; G47.33 Obstructive sleep apnea (adult) (pediatric); E55.9 Vitamin D deficiency, unspecified
CPT/HCPCS: 36415; 51702; 80053; 81001; 85025; 87077; 87086; 87088; 87186; 99283; A9270

== ENCOUNTER 2023-11-17 08:35 | Outpatient (CLI) | payer MEDICARE, OTHER, SELFPAY ==
--- NOTE | ~2023-11-17 | US_ITS ---
CORRECTED REPORT corrected exam description [facility] [place]23 This report was recreated on 11/18/23. Original report was US breast RT limited 11/17/2023 11:47 Indication: Complex right breast mass seen on prior examination with thick echogenic wall. Biopsy requested. Procedure: High-resolution Limited ultrasound of the right breast Comparison: Ultrasound dated 09/29/2023 Findings: The mass in the right breast at 4:00, 11 cm from the nipple has changed in morphology with only a small residual 2 mm cyst. There is heterogeneous echotexture otherwise. Impression: 1: Interval change of morphology with no suspicious masses identified on the current examination. BI-RADS CATEGORY 3-PROBABLY BENIGN FINDING RECOMMENDATION: 6 month follow-up Limited right breast ultrasound recommended. Reviewed, dictated and finalized at location B. MTDD Impression: 1: Interval change of morphology with no suspicious masses identified on the cu rrent examination. BI-RADS CATEGORY 3-PROBABLY BENIGN FINDING RECOMMENDATION: 6 month follow-up Limited right breast ultrasound recommended.
== END 2023-11-17 08:36 | disposition home or self-care (01) ==
LOC: ANHIMG 08:37
PROVIDERS: PCP Family Medicine; Visit Provider Surgery
DX: N63.10 Unspecified lump in the right breast, unspecified quadrant (principal); R92.8 Other abnormal and inconclusive findings on diagnostic imaging of breast
CPT/HCPCS: 76642

== ENCOUNTER 2024-01-24 17:02 | Outpatient (CLI) | payer MEDICARE, OTHER, SELFPAY ==
--- NOTE | ~2024-01-24 | XR_ITS ---
Left Shoulder Technique: AP and scapular Y views were obtained. Clinical History: Adhesive capsulitis Findings: No fracture or dislocation is seen. Osseous alignment is anatomic. The glenohumeral and acr omioclavicular joint spaces are preserved. Soft tissues are unremarkable. Impression: Unremarkable left shoulder radiographs. Reviewed, dictated and finalized at [facility]. CTOR OF SOLUTIONS ARCHITECTURE Impression: Unremarkable left shoulder radiographs.
== END 2024-01-24 17:03 | disposition home or self-care (01) ==
PROVIDERS: PCP Family Medicine; Visit Provider Family Medicine
DX: M75.00 Adhesive capsulitis of unspecified shoulder (principal)
CPT/HCPCS: 73030

== ENCOUNTER 2024-02-01 15:41 | Inpatient (IN) | payer MEDICARE, OTHER, SELFPAY ==
--- NOTE | ~2024-02-01 | US_ITS ---
EXAMINATION: US renal BI DATE: 02/02/2024 16:37 INDICATION: Hematuria. Urinary tract infection. TECHNIQUE: Multiple ultrasound grayscale images of the kidneys were obtained. COMPARISON: CT abdomen and pelvis 09/15/2023 FINDINGS: The right kidney measures 11.8 x 6.0 x 6.2 cm. The left kidney measures 11.2 x 5.1 x 4.2 cm. The kidn eys demonstrate normal parenchymal echogenicity. There are cysts in left kidney measuring up to 1.4 c m. There is no hydronephrosis. The bladder is decompressed by a Vigil catheter. IMPRESSION: 1. Normal kidney sizes. No hydronephrosis. Reviewed, dictated and finalized at location A. R FEEDER
--- NOTE | ~2024-02-01 | CT_ITS ---
History: Altered mental status PROCEDURE: CT head without contrast. COMPARISON: 09/15/2023. Reference is also made to an MRI examination of the brain dated 06/29/2017. TECHNIQUE: Axial imaging of the head performed from the skull base to the vertex without IV contrast. Sagittal a nd coronal reformations obtained. DLP: 605 mGy-cm FINDINGS: The ventricles are normal in size, shape and position. Redemonstration of a left cerebellopontine angle meningioma, unchanged in size from 09/15/2023. There is no additional mass, mass effect or midline shift. There is no abnormal extra-axial fluid collection or intracranial hemorrhage. Visualized paranasal sinuses are clear. The mastoid air cells are well aerated. No acute displaced fractures within the overlying cranium. Impression: No acute intracranial hemorrhage or suspicious mass effect. Stable meningioma within the left cerebellopontine angle, as detailed above. Reviewed, dictated and finalized at location A. [employer]PER[employer] Impression: No acute intracranial hemorrhage or suspicious mass effect. Stable meningioma within the left cerebellopontine angle, as detailed above.
[2024-02-01 15:44] VITALS: BP 151/64; PULSE 120; RESP 27; TEMP 36.7; O2SAT 94
--- NOTE | 2024-02-01 15:56 | ECG_ITS ---
Test Date: 2024-02-01 16:27:44 Measurements Intervals [place] Rate: 116 P: 52 IA: 180 QRS: -9 QRSD: 110 T: 53 QT: 309 QTc: 430 Interpretive Statements SINUS TACHYCARDIA WITH VENTRICULAR PREMATURE COMPLEX INTRAVENTRICULAR CONDUCTION DELAY DELAYED PRECORDIAL R/S TRANSITION BASELINE ARTIFACT- II, III, AVL, AVF ABNORMAL ECG Compared to ECG 09/15/2023 10:29:23 HEART RATE HAS INCREASED Electronically Signed On 02-01-2024 18:29:45 GAMBLING DEALER by Bulmaro Knight D.O.
[2024-02-01 17:25] LABS: Basophils Absolute Auto 0.1 K/mm3 (0.0-0.1); Basophils Percent Auto 0.6 % (0.2-1.2); Eosinophils Percent Auto 0.4 % (0-4.4); Hematocrit 40.8 % (37.0-47.0); Immature Granulocyte Absolute 0.06 K/mm3 (0.00-0.031); Immature Granulocyte Percent A 0.6 % (0-0.5); Lymphocytes Absolute Auto 0.62 K/mm3 (0.9-3.2); Lymphocytes Percent Auto 5.7 % (18.3-44.2); Mean Corpuscular HGB Conc 31.9 g/dl (32-36); Mean Corpuscular Hemoglobin 31.7 pg (26-34); Mean Corpuscular Volume 99.5 fl (80-100); Mean Platelet Volume 10.4 fl (7.4-10.4); Monocytes Absolute Auto 0.5 K/mm3 (0.1-0.6); Monocytes Percent Auto 4.4 % (2.6-8.5); Neutrophils Absolute Auto 9.6 K/mm3 (1.3-6.7); Neutrophils Percent Auto 88.3 % (45.5-73.1); Platelet Count Result 177 k/mm3 (150-375); Red Cell Distribution Width 15.9 % (11.5-14.5); White Blood Count 10.9 K/mm3 (4.5-10.0)
[2024-02-01 17:54] LABS: Add Urine Microscopic? YES; Appearance Urine Turbid (Clear); Bacteria Urine 4+ /hpf; Bilirubin Urine Negative (Negative); Blood Urine 3+ (Negative); Color Urine Yellow (Yellow); Glucose Urine UA 1+ mg/dL (Negative); Ketones Urine Negative (Negative); Leukocyte Esterase Ur 3+ LEU/UL (Negative); Need Manual Microscopic Reviewed; Nitrate Urine Positive (Negative); Protein Urine 2+ mg/dL (Negative); RBC Urine >100 /hpf (0-2); Specific Grav Ur 1.013 (1.001-1.035); Squamous Epithelial Cell Urine None Seen /hpf (Few); Urobilinogen Urine 0.2 mg/dL (<2.0); WBC Urine >100 /hpf (0-3)
--- NOTE | 2024-02-01 18:36 | ED.AMS ---
HPI - Altered Mental Status General Chief Complaint: Altered Mental Status Stated Complaint: HALLUCINATIONS Time Seen by Provider: 02/01/24 17:26 History of Present Illness HPI narrative: 68-year-old female presenting with AMS. Daughter is at bedside and helps with the history. States that today she has been confused and saying things that do not make sense. States she has had episodes like this in the past and it has been related to her bladder. Denies any new pain. Complains of chronic neuropathic pain in her bilateral feet. No further complaints. Related Data Home Medications Medication Instructions Recorded Confirmed acetaminophen 500 mg tablet 1,000 mg PO BID Pain 07/10/20 02/02/24 (Tylenol Extra Strength) multivit with minerals-iron 18 1 tablet PO DAILY 03/06/21 02/02/24 mg-folic ac 400 mcg-vit K 25 mcg tablet (Adults Multivitamin) aspirin 81 mg tablet,delayed 81 mg PO BID 10/30/21 02/02/24 release clonidine HCl 0.1 mg tablet 0.2 mg PO HS 05/18/23 02/02/24 clotrimazole-betamethasone 1 1 applic topical BID 05/18/23 02/02/24 %-0.05 % topical cream dextrin 3 gram/4 gram oral powder 2 tsp PO TID PRN Constipation 05/18/23 02/02/24 (Clear Fiber) apixaban 2.5 mg tablet (Eliquis) 2.5 mg PO BID 02/02/24 02/02/24 atorvastatin 10 mg tablet 10 mg PO DAILY 02/02/24 02/02/24 benztropine 0.5 mg tablet 0.5 mg PO TID 02/02/24 02/02/24 duloxetine 30 mg capsule,delayed 30 mg PO BID 02/02/24 02/02/24 release furosemide 40 mg tablet 40 mg PO DAILY 02/02/24 02/02/24 insulin glargine 100 unit/mL (3 40 unit subcut DAILY 02/02/24 02/02/24 mL) subcutaneous pen (Basaglar KwikPen U-100 Insulin) lactulose 10 gram/15 mL oral 15 ml PO BID PRN Constipation 02/02/24 02/02/24 solution memantine ER 28 mg-donepezil 10 mg 1 cap PO DAILY 02/02/24 02/02/24 capsule sprinkle,ext.release 24 hr (Namzaric) metoprolol tartrate 50 mg tablet 50 mg PO DAILY 02/02/24 02/02/24 pregabalin 100 mg capsule 100 mg PO DAILY 02/02/24 02/02/24 Allergies Allergy/AdvReac Type Severity Reaction Status Date / Time ciprofloxacin Allergy Mild Hives Verified 02/01/24 15:58 metronidazole Allergy Mild Hives Verified 02/01/24 15:58 divalproex sodium Allergy Unknown Unknown Verified 02/01/24 15:58 vancomycin Allergy Unknown Unknown Verified 02/01/24 15:58 Review of Systems Review of Systems: All systems reviewed & are unremarkable except as noted in HPI and below PMFSH Past Medical History Medical History Abnormality of gait and mobility Antipsychotic-induced akathisia Anxiety Asterixis Benign essential hypertension Benzodiazepine abuse, continuous Body mass index [BMI] 39.0-39.9, adult (11/12/16) Brain hypoxia Chronic indwelling Vigil catheter Due to neurogenic bladder Chronic kidney disease due to diabetes mellitus Chronic kidney disease, stage III (moderate) Chronic obstructive pulmonary disease Chronic pain disorder Dementia with behavioral disturbance Depressive type psychosis Diabetic gastroparesis Diabetic nephropathy associated with type 2 diabetes mellitus Dyskinesia, tardive RAMAN (generalized anxiety disorder) Gout Iodine hypothyroidism Mixed hyperlipidemia Morbid obesity with BMI of 40.0-44.9, adult MALIA on CPAP Polypharmacy Post-menopausal Postmenopausal Psychophysiological insomnia Pulmonary embolism 2020 Severe recurrent major depressive disorder with psychotic features Type 2 diabetes mellitus with diabetic neuropathy, with long-term current use of insulin Type 2 diabetes mellitus with stage 3 chronic kidney disease Venous insufficiency (chronic) (peripheral) Vitamin D deficiency, unspecified Surgical History Surgical History Previous back surgery Family History Family History Father Diabetes mellitus Hypertension Patient's father is , Onset Age: 75 Family history of renal failure Mother Family history of malignant neoplasm of stomach Other Family history of arthritis Social History Social History (Updated 02/02/24 @ 09:04 by Ophelia Pacheco DO) Social History: She lives at home with her . Her daughters, and help at night. She has home caregivers that, for 8 hours each day. Patient reports that she ambulates with a walker. Code status: Full code (per EMR) Surrogate decision maker: Serjio () Smoking status: Never smoker Second hand tobacco smoke exposure: No Alcohol intake: never Substance use: never Substance use type: marijuana Other substance usage details: hx of marijuana use 2022 Do You Feel Safe in your Home?: Yes Lack of Transportation: No Lack of Food: Never True Current Housing: I Have Housing Concerned About Future Housing: No Difficulty Paying Gas/Electric Bills: No Difficulty Paying for Meds: No Currently Unemployed: No Education: Don't Know Difficulty w/ Childcare or Family Care: No Living arrangements: with family Occupation/Education: retired Gender identity (if verbalized by the patient): Female Sexual Orientation (if Verbalized by the Patient): Straight or Heterosexual Spiritual care concerns: No Exam Narrative: GENERAL: Ill-appearing a but in no acute distress, pleasant and cooperative HEAD: Normocephalic, atraumatic. EYES: PERRLA and EOMI. ENT: Mucous membranes dry NECK: Supple. CHEST: Clear to auscultation. No respiratory distress. HEART: tachycardic, regular rhythm ABDOMEN: Soft, nontender, nondistended EXTREMITIES: Normal range of motion SKIN: Warm, dry, no rash. NEURO: No focal deficits. Alert and oriented x2. PSYCH: Normal mood and affect. Course Vital Signs Vital signs: Vital Signs Temperature 98.1 F 02/01/24 15:44 Pulse Rate 120 H 02/01/24 15:44 Respiratory Rate 27 H 02/01/24 15:44 Blood Pressure 151/64 H 02/01/24 15:44 Pulse Oximetry 94 02/01/24 15:44 Oxygen Delivery Room Air 02/01/24 15:44 Temperature 98.3 F 02/03/24 03:45 Pulse Rate 80 02/03/24 08:26 Respiratory Rate 20 02/03/24 03:45 Blood Pressure 148/61 H 02/03/24 03:45 Pulse Oximetry 91 02/03/24 03:45 Oxygen Delivery Room Air 02/02/24 20:00 MDM - Altered Mental Status MDM Narrative Medical decision making narrative: 68-year-old female presenting with altered mental status. Patient is tachycardic, otherwise vitals are within normal limits. Exam remarkable for the above. Blood work with leukocytosis and CKD which slightly worse than baseline. UA is concerning for UTI. IV fluids 30 cc/kilos and antibiotics are ongoing. Patient with chronic indwelling Vigil, this was exchanged. Upon rolling her, we noted extensive excoriations for on her buttocks and evidence of an early pressure wound. CT brain without acute abnormalities. Feel patient would benefit from admission for IV antibiotics, hydration, observation. She is agreeable this plan. I spoke with the hospitalist who has accepted her for admission. Differential Diagnosis Differential diagnosis: Likely altered mental status, dementia, sepsis and other (UTI, AMS) Medical Records Attestation: I reviewed the patient's medical records. Lab Data Attestation: I reviewed the patient's lab results. 02/03/24 11:33 02/03/24 11:33 Labs: Lab Results 02/01/24 02/01/24 02/01/24 Range/Units 17:17 19:41 19:42 WBC 10.9 H (4.5-10.0) K/mm3 RBC 4.10 L (4.2-5.4) M/mm3 Hgb 13.0 (12.0-15.0) g/dL Hct 40.8 (37.0-47.0) % MCV 99.5 (80-100) fl MCH 31.7 (26-34) pg MCHC 31.9 L (32-36) g/dl RDW 15.9 H (11.5-14.5) % Plt Count 177 (150-375) k/mm3 MPV 10.4 (7.4-10.4) fl Immature Gran % (Auto) 0.6 H (0-0.5) % Neut % (Auto) 88.3 H (45.5-73.1) % Lymph % (Auto) 5.7 L (18.3-44.2) % [place] % (Auto) 4.4 (2.6-8.5) % Eos % (Auto) 0.4 (0-4.4) % Baso % (Auto) 0.6 (0.2-1.2) % Lymph # (Auto) 0.62 L (0.9-3.2) K/mm3 [place] # (Auto) 0.5 (0.1-0.6) K/mm3 Eos # (Auto) 0.0 (0-0.3) K/mm3 Baso # (Auto) 0.1 (0.0-0.1) K/mm3 Abs Immat Gran (auto) 0.06 H (0.00-0.031) K/mm3 Absolute Neuts (auto) 9.6 H (1.3-6.7) K/mm3 Absolute Nucleated RBC 0.000 (0.0-0.012) K/mm3 Nucleated RBC % 0.0 (0.0-0.2) % PT 16.0 H (11.1-14.7) Seconds INR 1.2 APTT 31.3 (22.3-36.8) Seconds Sodium 137 (137-145) mmol/L Potassium 4.6 (3.4-5.0) mmol/L Chloride 98 (98-107) mmol/L Carbon Dioxide 30 (22-30) mmol/L Anion Gap 9 (4-12) mmol/L BUN 63 H D (7-17) mg/dL Creatinine 1.90 H (0.7-1.0) mg/dL Estim Creat Clear Calc 37 ml/min Estimated GFR 26 L (59 - ) Glucose 342 H (65-110) mg/dL POC Capillary Glucose (65-105) mg/dl Calcium 10.7 H (8.4-10.2) mg/dL Total Bilirubin 0.7 (0.2-1.3) mg/dL AST 38 H (14-36) U/L ALT 33 (6-35) U/L Alkaline Phosphatase 168 H (38-126) U/L Total Protein 8.0 (6.3-8.2) g/dL Albumin 4.0 (3.5-5.1) g/dL Urine Color Yellow (Yellow) Urine Appearance Turbid H (Clear) Urine pH 5.0 (5.0-9.0) Ur Specific [place] 1.013 (1.001-1.035) Urine Protein 2+ H (Negative) mg/dL Urine Glucose (UA) 1+ H (Negative) mg/dL Urine Ketones Negative (Negative) mg/dL Ur Blood (Man) 3+ H (Negative) Urine Nitrate Positive H (Negative) Urine Bilirubin Negative (Negative) Urine Urobilinogen 0.2 (<2.0) mg/dL Add Ur Microanalysis Reviewed Leukocyte Esterase Rfl 3+ H (Negative) ARTURO/UL Urine RBC >100 H (0-2) /hpf Urine WBC >100 H (0-3) /hpf Ur Squamous Epith Cells None seen (Few) /hpf Urine Bacteria 4+ H /hpf Urine Casts 3-5 02/02/24 02/02/24 02/02/24 Range/Units 07:38 08:28 11:16 WBC (4.5-10.0) K/mm3 RBC (4.2-5.4) M/mm3 Hgb (12.0-15.0) g/dL Hct (37.0-47.0) % MCV (80-100) fl MCH (26-34) pg MCHC (32-36) g/dl RDW (11.5-14.5) % Plt Count (150-375) k/mm3 MPV (7.4-10.4) fl Immature Gran % (Auto) (0-0.5) % Neut % (Auto) (45.5-73.1) % Lymph % (Auto) (18.3-44.2) % [place] % (Auto) (2.6-8.5) % Eos % (Auto) (0-4.4) % Baso % (Auto) (0.2-1.2) % Lymph # (Auto) (0.9-3.2) K/mm3 [place] # (Auto) (0.1-0.6) K/mm3 Eos # (Auto) (0-0.3) K/mm3 Baso # (Auto) (0.0-0.1) K/mm3 Abs Immat Gran (auto) (0.00-0.031) K/mm3 Absolute Neuts (auto) (1.3-6.7) K/mm3 Absolute Nucleated RBC (0.0-0.012) K/mm3 Nucleated RBC % (0.0-0.2) % PT (11.1-14.7) Seconds INR APTT (22.3-36.8) Seconds Sodium 137 (137-145) mmol/L Potassium 4.3 (3.4-5.0) mmol/L Chloride 103 (98-107) mmol/L Carbon Dioxide 27 (22-30) mmol/L Anion Gap 7 (4-12) mmol/L BUN 49 H D (7-17) mg/dL Creatinine 1.70 H (0.7-1.0) mg/dL Estim Creat Clear Calc 41 ml/min Estimated GFR 30 L (59 - ) Glucose 432 H (65-110) mg/dL POC Capillary Glucose 391 H 389 H (65-105) mg/dl Calcium 8.9 (8.4-10.2) mg/dL Total Bilirubin (0.2-1.3) mg/dL AST (14-36) U/L ALT (6-35) U/L Alkaline Phosphatase (38-126) U/L Total Protein (6.3-8.2) g/dL Albumin (3.5-5.1) g/dL Urine Color (Yellow) Urine Appearance (Clear) Urine pH (5.0-9.0) Ur Specific [place] (1.001-1.035) Urine Protein (Negative) mg/dL Urine Glucose (UA) (Negative) mg/dL Urine Ketones (Negative) mg/dL Ur Blood (Man) (Negative) Urine Nitrate (Negative) Urine Bilirubin (Negative) Urine Urobilinogen (<2.0) mg/dL Add Ur Microanalysis Leukocyte Esterase Rfl (Negative) ARTURO/UL Urine RBC (0-2) /hpf Urine WBC (0-3) /hpf Ur Squamous Epith Cells (Few) /hpf Urine Bacteria /hpf Urine Casts 02/02/24 02/02/24 02/03/24 Range/Units 15:51 19:44 08:02 WBC (4.5-10.0) K/mm3 RBC (4.2-5.4) M/mm3 Hgb (12.0-15.0) g/dL Hct (37.0-47.0) % MCV (80-100) fl MCH (26-34) pg MCHC (32-36) g/dl RDW (11.5-14.5) % Plt Count (150-375) k/mm3 MPV (7.4-10.4) fl Immature Gran % (Auto) (0-0.5) % Neut % (Auto) (45.5-73.1) % Lymph % (Auto) (18.3-44.2) % [place] % (Auto) (2.6-8.5) % Eos % (Auto) (0-4.4) % Baso % (Auto) (0.2-1.2) % Lymph # (Auto) (0.9-3.2) K/mm3 [place] # (Auto) (0.1-0.6) K/mm3 Eos # (Auto) (0-0.3) K/mm3 Baso # (Auto) (0.0-0.1) K/mm3 Abs Immat Gran (auto) (0.00-0.031) K/mm3 Absolute Neuts (auto) (1.3-6.7) K/mm3 Absolute Nucleated RBC (0.0-0.012) K/mm3 Nucleated RBC % (0.0-0.2) % PT (11.1-14.7) Seconds INR APTT (22.3-36.8) Seconds Sodium (137-145) mmol/L Potassium (3.4-5.0) mmol/L Chloride (98-107) mmol/L Carbon Dioxide (22-30) mmol/L Anion Gap (4-12) mmol/L BUN (7-17) mg/dL Creatinine (0.7-1.0) mg/dL Estim Creat Clear Calc ml/min Estimated GFR (59 - ) Glucose (65-110) mg/dL POC Capillary Glucose 364 H 375 H 314 H (65-105) mg/dl Calcium (8.4-10.2) mg/dL Total Bilirubin (0.2-1.3) mg/dL AST (14-36) U/L ALT (6-35) U/L Alkaline Phosphatase (38-126) U/L Total Protein (6.3-8.2) g/dL Albumin (3.5-5.1) g/dL Urine Color (Yellow) Urine Appearance (Clear) Urine pH (5.0-9.0) Ur Specific [place] (1.001-1.035) Urine Protein (Negative) mg/dL Urine Glucose (UA) (Negative) mg/dL Urine Ketones (Negative) mg/dL Ur Blood (Man) (Negative) Urine Nitrate (Negative) Urine Bilirubin (Negative) Urine Urobilinogen (<2.0) mg/dL Add Ur Microanalysis Leukocyte Esterase Rfl (Negative) ARTURO/UL Urine RBC (0-2) /hpf Urine WBC (0-3) /hpf Ur Squamous Epith Cells (Few) /hpf Urine Bacteria /hpf Urine Casts Imaging Data Radiologist's impression: ITS Impressions Head CT 02/01/24 20:07 Impression: No acute intracranial hemorrhage or suspicious mass effect. Stable meningioma within the left cerebellopontine angle, as detailed above. Renal Ultrasound 02/02/24 16:39 IMPRESSION: 1. Normal kidney sizes. No hydronephrosis. Critical Care Time Critical Care Time Critical Care Time: Yes Total Critical Care Time: 32 Discharge Plan Discharge Clinical Impression: Pressure ulcer of buttock, Catheter-associated urinary tract infection, Acute metabolic encephalopathy, CKD (chronic kidney disease) Patient Disposition: Still a Patient Condition: Stable
[2024-02-01] MEDS: cefTRIAXone 2 GM/NS 100 ML 2 GM/100 ML BAG IVPB (19:23)
[2024-02-01] MEDS: SODIUM CHLORIDE 0.9% IV 1,000 ML 999 ML IV CONT ×4 (19:23→21:43)
[2024-02-01 20:07] LABS: INR 1.2
[2024-02-01 20:07] LABS: Alanine Aminotransferase 33 U/L (6-35); Alkaline Phosphatase 168 U/L (38-126); Anion Gap 9 mmol/L (4-12); Aspartate Amino Transferase 38 U/L (14-36); Bilirubin,Total 0.7 mg/dL (0.2-1.3); Blood Urea Nitrogen 63 mg/dL (7-17); Calcium 10.7 mg/dL (8.4-10.2); Carbon Dioxide 30 mmol/L (22-30); Chloride 98 mmol/L (98-107); Estimated CRCL calculation 37 ml/min; Estimated Glomerular Filt Rate 26; Glucose 342 mg/dL (65-110); Potassium 4.6 mmol/L (3.4-5.0); Sodium 137 mmol/L (137-145)
[2024-02-01 20:08] LABS: Partial Thromboplastin Time 31.3 Seconds (22.3-36.8)
[2024-02-01 20:54] VITALS: BP 146/98; PULSE 118; RESP 15; O2SAT 97
[2024-02-01] MEDS: MORPHINE SULFATE (*CRX) 2 MG/ML INJ IV PUSH (22:00)
[2024-02-01 22:27] VITALS: BP 141/82; PULSE 103; RESP 16; TEMP 36.9; O2SAT 97; BMI 42.3
--- NOTE | 2024-02-01 22:27 | ADMGEN ---
This patient, Christine Michel, was admitted to IMU Room 205-01. Patient/family oriented to hospital policies and general routines including ID bracelet, bed and alarms, visiting hours, pain management, procedures, bathroom and other care routines, personal items, smoking policy, room service/diet, and visiting hours. Information on how to activate the Rapid Response Team has been discussed. Patient/Family are encouraged to report perceived risks to care and to ask questions if they do not understand what they are told or what they should do.
[2024-02-01 23:00] VITALS: PULSE 120
[2024-02-02] VITALS (16 sets, daily range): BP systolic 131–155; BP diastolic 51–89; PULSE 81–124; RESP 16–24; TEMP 36.3–37.5; O2SAT 90–93; BMI 42.3
[2024-02-02] MEDS: PREGABALIN (*CRX) 50 MG CAPSULE 100 MG PO ×2 (06:02→09:01)
[2024-02-02] MEDS: traMADol HCL (*CRX) 50 MG TABLET PO ×2 (06:02→13:59)
[2024-02-02 07:42] LABS: Glucose Point of Care 391 mg/dl (65-105)
--- NOTE | 2024-02-02 07:57 | PM.IMHP ---
H&P: HPI History of Present Illness Date/Time: 02/02/24 07:57 Chief Complaint: Blood in catheter, hallucinations Narrative: 68-year-old female with complex past medical history including dementia with behaviors, depression with psychosis with recent psychiatric placement due to suicidal ideation, type 2 diabetes mellitus poorly controlled on insulin therapy, obstructive sleep apnea/obesity hypoventilation syndrome, chronic indwelling Vigil catheter due to neurogenic bladder with history of recurrent infections, chronic pain syndrome with chronic opiate dependence, chronic benzodiazepine use among other chronic conditions who presented to the ER from home via EMS due to blood in her Vigil catheter and hallucinations. Source of information comes from patient who is a poor historian and ER physician report as well as review of past medical records. The patient's daughter reported the patient has been confused and saying things that do not make sense. When patient arrived to the ER she was reportedly alert orient x4. At the time of my evaluation patient is alert oriented to name date of and the fact that she is in [facility]. She thought that the month was February and that the year was 1994. She stated initially that she was 48 years old but then when I told her that she was not she did correct herself that she was 68 years old. She complains at the time of evaluation of a severe headache and when I ask her where her head hurts she generally gestures to the front of her head but can give me no further details regarding the pain. She does states that it is severe. She insists that we have not given her any pain medications although I tried to inform her that she had already received tramadol Tylenol and Lyrica. She is also complaining of severe pain in her feet. She does have chronic neuropathy. She denies having any nausea or vomiting. It is unclear when she had her last bowel movement. In the ER was noted that she had marked excoriation of her buttocks. Her Vigil catheter was exchanged in the ER. She received 4 L of IV fluid bolus in the ER for 30 mL/kilos total bolus. With fluid bolus patient's heart rate decreased from the 120s down to the low 100s. She had improved urine output and clearing of her urine. Review of Systems Review of Systems: Review of systems limited due to patient's history of dementia and chronic encephalopathy. However she denies any other symptoms besides pain in her head and feet. [facility] Past Medical History Medical History Abnormality of gait and mobility Antipsychotic-induced akathisia Anxiety Asterixis Benign essential hypertension Benzodiazepine abuse, continuous Body mass index [BMI] 39.0-39.9, adult (11/12/16) Brain hypoxia Chronic indwelling Vigil catheter Due to neurogenic bladder Chronic kidney disease due to diabetes mellitus Chronic kidney disease, stage III (moderate) Chronic obstructive pulmonary disease Chronic pain disorder Dementia with behavioral disturbance Depressive type psychosis Diabetic gastroparesis Diabetic nephropathy associated with type 2 diabetes mellitus Dyskinesia, tardive RAMAN (generalized anxiety disorder) Gout Iodine hypothyroidism Mixed hyperlipidemia Morbid obesity with BMI of 40.0-44.9, adult MALIA on CPAP Polypharmacy Post-menopausal Postmenopausal Psychophysiological insomnia Pulmonary embolism 2020 Severe recurrent major depressive disorder with psychotic features Type 2 diabetes mellitus with diabetic neuropathy, with long-term current use of insulin Type 2 diabetes mellitus with stage 3 chronic kidney disease Venous insufficiency (chronic) (peripheral) Vitamin D deficiency, unspecified Surgical History Surgical History Previous back surgery Family History Family History Father Diabetes mellitus Hypertension Patient's father is , Onset Age: 75 Family history of renal failure Mother Family history of malignant neoplasm of stomach Other Family history of arthritis Social History Social History (Updated 02/02/24 @ 09:04 by Ophelia Pacheco DO) Social History: She lives at home with her . Her daughters, and help at night. She has home caregivers that, for 8 hours each day. Patient reports that she ambulates with a walker. Code status: Full code (per EMR) Surrogate decision maker: Serjio () Smoking status: Never smoker Second hand tobacco smoke exposure: No Alcohol intake: never Substance use: never Substance use type: marijuana Other substance usage details: hx of marijuana use 2022 Do You Feel Safe in your Home?: Yes Lack of Transportation: No Lack of Food: Never True Current Housing: I Have Housing Concerned About Future Housing: No Difficulty Paying Gas/Electric Bills: No Difficulty Paying for Meds: No Currently Unemployed: No Education: Don't Know Difficulty w/ Childcare or Family Care: No Living arrangements: with family Occupation/Education: retired Gender identity (if verbalized by the patient): Female Sexual Orientation (if Verbalized by the Patient): Straight or Heterosexual Spiritual care concerns: No Meds Home Medications and Allergies Home Medications Medication Instructions Recorded Confirmed Type acetaminophen 500 mg tablet 1,000 mg PO BID Pain 07/10/20 02/02/24 History (Tylenol Extra Strength) multivit with minerals-iron 18 1 tablet PO DAILY 03/06/21 02/02/24 History mg-folic ac 400 mcg-vit K 25 mcg tablet (Adults Multivitamin) aspirin 81 mg tablet,delayed 81 mg PO BID 10/30/21 02/02/24 History release clonidine HCl 0.1 mg tablet 0.2 mg PO HS 05/18/23 02/02/24 History clotrimazole-betamethasone 1 1 applic topical BID 05/18/23 02/02/24 History %-0.05 % topical cream dextrin 3 gram/4 gram oral powder 2 tsp PO TID PRN Constipation 05/18/23 02/02/24 History (Clear Fiber) cholecalciferol (vitamin D3) 1,250 1,250 mcg PO WEEKLY #12 tabs 08/25/23 02/02/24 Rx mcg (50,000 unit) tablet quetiapine 200 mg tablet 100 mg PO BID #180 tabs 10/12/23 02/02/24 Rx lidocaine 5 % topical patch 1 patch topical DAILY #30 ea 10/21/23 02/02/24 Rx (Lidoderm) dulaglutide 3 mg/0.5 mL 3 mg (0.5 mL) subcut WEEKLY #2 mL 11/07/23 02/02/24 Rx subcutaneous pen injector (Trulicity) tramadol 50 mg tablet 50 mg PO TID PRN pain #60 tabs 12/30/23 02/02/24 Rx apixaban 2.5 mg tablet (Eliquis) 2.5 mg PO BID 02/02/24 02/02/24 History atorvastatin 10 mg tablet 10 mg PO DAILY 02/02/24 02/02/24 History benztropine 0.5 mg tablet 0.5 mg PO TID 02/02/24 02/02/24 History duloxetine 30 mg capsule,delayed 30 mg PO BID 02/02/24 02/02/24 History release furosemide 40 mg tablet 40 mg PO DAILY 02/02/24 02/02/24 History insulin glargine 100 unit/mL (3 40 unit subcut DAILY 02/02/24 02/02/24 History mL) subcutaneous pen (Basaglar KwikPen U-100 Insulin) lactulose 10 gram/15 mL oral 15 ml PO BID PRN Constipation 02/02/24 02/02/24 History solution memantine ER 28 mg-donepezil 10 mg 1 cap PO DAILY 02/02/24 02/02/24 History capsule sprinkle,ext.release 24 hr (Namzaric) metoprolol tartrate 50 mg tablet 50 mg PO DAILY 02/02/24 02/02/24 History pregabalin 100 mg capsule 100 mg PO DAILY 02/02/24 02/02/24 History Allergies Allergy/AdvReac Type Severity Reaction Status Date / Time ciprofloxacin Allergy Mild Hives Verified 02/01/24 15:58 metronidazole Allergy Mild Hives Verified 02/01/24 15:58 divalproex sodium Allergy Unknown Unknown Verified 02/01/24 15:58 vancomycin Allergy Unknown Unknown Verified 02/01/24 15:58 Vital Signs Vital Signs - 24 hr 02/01/24 15:44 02/01/24 15:55 02/01/24 20:54 Temperature 98.1 F Pulse Rate 120 H 118 H Respiratory Rate 27 H 15 Blood Pressure 151/64 H 146/98 H Pulse Oximetry 94 97 Oxygen Delivery Room Air Room Air 02/01/24 22:27 02/02/24 00:00 02/01/24 23:00 Temperature 98.4 F Pulse Rate 103 H 115 H 120 H Respiratory Rate 16 Blood Pressure 141/82 H Pulse Oximetry 97 Oxygen Delivery 02/02/24 00:00 02/02/24 02:00 02/02/24 04:00 Temperature Pulse Rate 119 H 124 H 116 H Respiratory Rate 20 Blood Pressure Pulse Oximetry 90 Oxygen Delivery Room Air 02/02/24 04:00 02/02/24 04:00 02/02/24 06:00 Temperature 99.5 F Pulse Rate 107 H 116 H 105 H Respiratory Rate 20 Blood Pressure 146/51 H Pulse Oximetry 90 Oxygen Delivery Exam Narrative: Weight 130 kg BMI 42.3 Const: Other: Morbidly obese, chronically deconditioned, lying in bed with head of bed at 20?, moaning and restless shaking her legs HENMT: Other: Mucous membranes are dry, erythema to tongue, crowded posterior oropharynx, poor dentition Eyes: Other: Pupils are equal and reactive, no scleral icterus, no conjunctival pallor Neck: Other: Large neck circumference, no obvious thyromegaly, nontender palpation, loss of cervical lordosis Resp: Other: Shallow respirations, no increased work of breathing Cardio: Other: Mildly tachycardic, 2+ bilateral radial and pedal pulses, no JVD GI: Other: Soft, obese, nontender, positive bowel sounds : Other: Vigil catheter in place, urine is pale yellow cloudy with large amounts of sediment, patient has thickened almost like and fight skin to the buttocks with associated erythema with moist appearing skin with resultant skin breakdown please see nursing documentation for further details but excoriation involves the entire length of the crease of the buttocks down into the perineum Skin: Other: Please see documentation under , otherwise generalized pallor, skin is cool to touch, no mottling, 2-3 second cap refill Neuro: Other: Patient is alert oriented to person, place and name of the president, she is confused as to the month she thinks that it is February and that the year is 1994, she initially stated that she was 48 years old but with prompting was able to correct herself to age 68, she she has no obvious facial asymmetry and extraocular movements appear to be grossly intact, she moves all extremities equally although she has generalized weakness of all extremities Extrem: Other: No pitting edema, generalized weakness of all extremities, no cyanosis Psych: Other: Anxious, restless, intermittently tearful, poor judgment and insight H&P: Results Labs Labs: Laboratory Tests 02/01/24 17:17 02/01/24 19:41 02/01/24 02/01/24 02/01/24 17:17 19:41 19:42 WBC 10.9 H RBC 4.10 L Hgb 13.0 Hct 40.8 MCV 99.5 MCH 31.7 MCHC 31.9 L RDW 15.9 H Plt Count 177 MPV 10.4 Immature Gran % (Auto) 0.6 H Neut % (Auto) 88.3 H Lymph % (Auto) 5.7 L [place] % (Auto) 4.4 Eos % (Auto) 0.4 Baso % (Auto) 0.6 Lymph # (Auto) 0.62 L [place] # (Auto) 0.5 Eos # (Auto) 0.0 Baso # (Auto) 0.1 Abs Immat Gran (auto) 0.06 H Absolute Neuts (auto) 9.6 H Absolute Nucleated RBC 0.000 Nucleated RBC % 0.0 PT 16.0 H INR 1.2 APTT 31.3 Sodium 137 Potassium 4.6 Chloride 98 Carbon Dioxide 30 Anion Gap 9 BUN 63 H D Creatinine 1.90 H Estim Creat Clear Calc 37 Estimated GFR 26 L Glucose 342 H POC Capillary Glucose Calcium 10.7 H Total Bilirubin 0.7 AST 38 H ALT 33 Alkaline Phosphatase 168 H Total Protein 8.0 Albumin 4.0 Urine Color Yellow Urine Appearance Turbid H Urine pH 5.0 Ur Specific [place] 1.013 Urine Protein 2+ H Urine Glucose (UA) 1+ H Urine Ketones Negative Ur Blood (Man) 3+ H Urine Nitrate Positive H Urine Bilirubin Negative Urine Urobilinogen 0.2 Add Ur Microanalysis Reviewed Leukocyte Esterase Rfl 3+ H Urine RBC >100 H Urine WBC >100 H Ur Squamous Epith Cells None seen Urine Bacteria 4+ H Urine Casts 3-5 02/02/24 07:38 WBC RBC Hgb Hct MCV MCH MCHC RDW Plt Count MPV Immature Gran % (Auto) Neut % (Auto) Lymph % (Auto) [place] % (Auto) Eos % (Auto) Baso % (Auto) Lymph # (Auto) [place] # (Auto) Eos # (Auto) Baso # (Auto) Abs Immat Gran (auto) Absolute Neuts (auto) Absolute Nucleated RBC Nucleated RBC % PT INR APTT Sodium Potassium Chloride Carbon Dioxide Anion Gap BUN Creatinine Estim Creat Clear Calc Estimated GFR Glucose POC Capillary Glucose 391 H Calcium Total Bilirubin AST ALT Alkaline Phosphatase Total Protein Albumin Urine Color Urine Appearance Urine pH Ur Specific [place] Urine Protein Urine Glucose (UA) Urine Ketones Ur Blood (Man) Urine Nitrate Urine Bilirubin Urine Urobilinogen Add Ur Microanalysis Leukocyte Esterase Rfl Urine RBC Urine WBC Ur Squamous Epith Cells Urine Bacteria Urine Casts Impressions Head CT 02/01/24 20:07 Impression: No acute intracranial hemorrhage or suspicious mass effect. Stable meningioma within the left cerebellopontine angle, as detailed above. EKG: Personally reviewed and interpreted. Agree with cardiology interpretation which is found below Measurements Intervals [place] Rate: 116 P: 52 [place]: 180 QRS: -9 QRSD: 110 T: 53 QT: 309 QTc: 430 Interpretive Statements SINUS TACHYCARDIA WITH VENTRICULAR PREMATURE COMPLEX INTRAVENTRICULAR CONDUCTION DELAY DELAYED PRECORDIAL R/S TRANSITION BASELINE ARTIFACT- II, III, AVL, AVF ABNORMAL ECG Compared to ECG 09/15/2023 10:29:23 HEART RATE HAS INCREASED Assessment and Plan Assessment and plan (1) Catheter-associated urinary tract infection: Qualifiers: Indwelling urinary catheter type: indwelling urethral catheter Encounter type: initial encounter Qualified Code(s): T83.511A - Infection and inflammatory reaction due to indwelling urethral catheter, initial encounter; N39.0 - Urinary tract infection, site not specified Code(s): T83.511A - Infection and inflammatory reaction due to indwelling urethral catheter, initial encounter; N39.0 - Urinary tract infection, site not specified Status: Acute (2) Abnormal finding on urinalysis: Code(s): R82.90 - Unspecified abnormal findings in urine Status: Acute (3) Acute metabolic encephalopathy: Code(s): G93.41 - Metabolic encephalopathy Status: Acute (4) Polypharmacy: Code(s): Z79.899 - Other terminal carman (current) drug therapy Status: Acute (5) Acute kidney injury superimposed on stage 3b chronic kidney disease: Code(s): N17.9 - Acute kidney failure, unspecified; N18.32 - Chronic kidney disease, stage 3b Status: Acute (6) Type 2 diabetes mellitus with hyperglycemia, with long-term current use of insulin: Code(s): E11.65 - Type 2 diabetes mellitus with hyperglycemia; Z79.4 - half-way (current) use of insulin Status: Acute (7) Pressure ulcer of buttock: Qualifiers: Pressure injury stage: unspecified pressure injury stage Laterality: unspecified laterality Qualified Code(s): L89.309 - Pressure ulcer of unspecified buttock, unspecified stage Code(s): L89.309 - Pressure ulcer of unspecified buttock, unspecified stage Status: Acute (8) Non compliance w medication regimen: Code(s): Z91.14 - Patient's other noncompliance with medication regimen Status: Acute (9) MALIA on CPAP: Code(s): G47.33 - Obstructive sleep apnea (adult) (pediatric); Z99.89 - Dependence on other enabling machines and devices Status: Chronic (10) Chronic anticoagulation: Code(s): Z79.01 - tank terminal gauger (current) use of anticoagulants Status: Acute (11) Dementia with behavioral disturbance: Code(s): F03.918 - Unspecified dementia, unspecified severity, with other behavioral disturbance Status: Acute (12) Neurogenic bladder: Code(s): N31.9 - Neuromuscular dysfunction of bladder, unspecified Status: Acute Plan Patient had increased confusion in blood her urine with chronic indwelling Vigil catheter. She had some mild leukocytosis. This clinical picture is suspicious for UTI and will be treated as such with empiric antibiotic therapy. Patient is urine cultures in the past have been pretty much pansensitive except for to Cipro which she has already allergic 2. Patient is subsequently been started on antibiotic therapy with Rocephin. Urine cultures have been obtained and are pending. Will repeat CBC and electrolyte panel in a.m.. The patient does have minimal elevation in creatinine above baseline consistent with acute kidney injury on chronic kidney disease. Will monitor strict I&O's closely. Patient does appear to be dehydrated with dry mucous membranes. She received 4 L of IV fluids in the ER. Will continue IV fluid hydration at 75 mL an hour and will hold patient's home diuretic therapy. Patient is confused and family does reporting patient was more confused than baseline. Confusion is likely multifactorial due to metabolic encephalopathy, polypharmacy and dimension depression with psychosis. I would like to avoid giving the patient excessive amounts of pain medications given her as history. We need to clarify Seroquel dosing and Lyrica dosing with the patient's family. Patient is reporting a severe headache suspect patient may be having some withdrawal symptoms it is unclear if she may have been taking more medications than directed. Nursing staff was unable to contact the family to clarify medication dosing. Patient does have history of uncontrolled diabetes and has acute acute hyperglycemia. Will resume patient's home Lantus and will add high-dose sliding scale at [facility] with Accu-Cheks a.c. HS and will change diet to consistent carbohydrate diet. Hypoglycemia protocol has been ordered as needed. Patient does have history of obstructive sleep apnea and obesity hypoventilation syndrome. Will place patient on CPAP/BiPAP at night. Otherwise will resume the remainder the patient's home medications as appropriate including at the hypertensives. Quality VTE Prophylaxis VTE prophylaxis: pharmacologic ordered (Continue home Eliquis) Hospitalist [facility] Advance Care Plan I have confirmed that the patient's Advanced Care Plan is present, code status is documented, or surrogate decision maker is listed in patient medical record.: Yes Medication Reconciliation I have utilized all available resources to obtain, update and review the patients current medications (includes all prescriptions, OTC, herbals, cannabis, and nutritional supplements).: Yes
[2024-02-02] MEDS: BENZTROPINE MESYLATE 0.5 MG TABLET PO ×3 (09:00→18:07)
[2024-02-02] MEDS: MULTIVITAMINS /C LUTEIN (CENTRUM SILVER) TABLET *BKC 1 TAB PO (09:01)
[2024-02-02] MEDS: ASPIRIN 81 MG ENTERIC TABLET PO ×2 (09:01→18:07)
[2024-02-02] MEDS: APIXABAN 2.5 MG TABLET PO ×2 (09:01→20:22)
[2024-02-02] MEDS: ATORVASTATIN 10 MG TABLET PO (09:01)
[2024-02-02] MEDS: DONEPEZIL HCL 10 MG TABLET PO (09:01)
[2024-02-02] MEDS: DULoxetine HCL 30 MG CAPSULE.DR PO ×2 (09:01→20:21)
[2024-02-02] MEDS: MEMANTINE HCL XR 28 MG CAP PO (09:02)
[2024-02-02] MEDS: METOPROLOL TARTRATE 50 MG TAB PO ×2 (09:02→20:22)
[2024-02-02] MEDS: BETAMETHASONE/CLOTRIMAZOLE CREAM 15 GM TUBE 1 APPLIC TOPICAL ×2 (09:07→18:08)
[2024-02-02 09:14] LABS: Anion Gap 7 mmol/L (4-12); Blood Urea Nitrogen 49 mg/dL (7-17); Calcium 8.9 mg/dL (8.4-10.2); Carbon Dioxide 27 mmol/L (22-30); Chloride 103 mmol/L (98-107); Estimated CRCL calculation 41 ml/min; Estimated Glomerular Filt Rate 30; Glucose 432 mg/dL (65-110); Potassium 4.3 mmol/L (3.4-5.0); Sodium 137 mmol/L (137-145)
[2024-02-02] MEDS: INSULIN GLARGINE (*BKC) 100 UNITS/ML 40 UNITS SUB-Q (09:50)
[2024-02-02] MEDS: INSULIN ASPART (*BKC) 100 UNITS/ML SUB-Q ×4 (09:50→20:15)
--- NOTE | 2024-02-02 11:24 | P.PNIM_ITS ---
Progress Note: A&P Assessment and Plan (1) Catheter-associated urinary tract infection: Qualifiers: Encounter type: initial encounter Indwelling urinary catheter type: indwelling urethral catheter Qualified Code(s): T83.511A - Infection and inflammatory reaction due to indwelling urethral catheter, initial encounter; N39.0 - Urinary tract infection, site not specified Code(s): T83.511A - Infection and inflammatory reaction due to indwelling urethral catheter, initial encounter; N39.0 - Urinary tract infection, site not specified Status: Acute (2) Abnormal finding on urinalysis: Code(s): R82.90 - Unspecified abnormal findings in urine Status: Acute (3) Acute metabolic encephalopathy: Code(s): G93.41 - Metabolic encephalopathy Status: Acute (4) Polypharmacy: Code(s): Z79.899 - Other termination clerk (current) drug therapy Status: Acute (5) Acute kidney injury superimposed on stage 3b chronic kidney disease: Code(s): N17.9 - Acute kidney failure, unspecified; N18.32 - Chronic kidney disease, stage 3b Status: Acute (6) Type 2 diabetes mellitus with hyperglycemia, with long-term current use of insulin: Code(s): E11.65 - Type 2 diabetes mellitus with hyperglycemia; Z79.4 - exterminator helper (current) use of insulin Status: Acute (7) Pressure ulcer of buttock: Qualifiers: Laterality: unspecified laterality Pressure injury stage: unspecified pressure injury stage Qualified Code(s): L89.309 - Pressure ulcer of unspecified buttock, unspecified stage Code(s): L89.309 - Pressure ulcer of unspecified buttock, unspecified stage Status: Acute (8) Non compliance w medication regimen: Code(s): Z91.14 - Patient's other noncompliance with medication regimen Status: Acute (9) MALIA on CPAP: Code(s): G47.33 - Obstructive sleep apnea (adult) (pediatric); Z99.89 - Dependence on other enabling machines and devices Status: Chronic (10) Chronic anticoagulation: Code(s): Z79.01 - exterminator helper (current) use of anticoagulants Status: Acute (11) Dementia with behavioral disturbance: Code(s): F03.918 - Unspecified dementia, unspecified severity, with other behavioral disturbance Status: Acute (12) Neurogenic bladder: Code(s): N31.9 - Neuromuscular dysfunction of bladder, unspecified Status: Acute Plan Acute encephalopathy Likely resulting from UTI and dehydration CT head shows no acute intracranial issues, stable meningioma Patient was confused upon arrival in the ED Patient has pyuria on urinalysis, also has leukocytosis, elevated BUN creatinine above baseline Neuro check Fall precaution Complicated UTI Patient has indwelling catheter. UA shows pyuria, hematuria Pending urine culture Continue ceftriaxone iv Will replace Vigil catheter Follow-up renal ultrasound SCAR on CKD Elevated BUN creatinine above baseline Likely secondary to UTI and dehydration Patient received fluid resuscitation for L in the ED Continue normal saline IV uncontrolled diabetes and has acute acute hyperglycemia. Will resume patient's home Lantus and will add high-dose sliding scale at [facility] with Accu-Cheks a.c. HS Diabetic diet Hypoglycemia protocol has been ordered as needed. History of PE Continue Eliquis 2.5 mg b.i.d. p.o. Sacral decubital ulcer Consult Wound Care MALIA Patient does have history of obstructive sleep apnea and obesity hypoventilation syndrome. Will place patient on CPAP/BiPAP at night. Otherwise will resume the remainder the patient's home medications as appropriate including at the [facility]. Subjective Date/time seen: 02/02/24 11:24 Interval history: I saw exam patient today, patient feels tired, not feeling good. Patient has a buttock pain. Exam Narrative: GENERAL: Pleasant, in no acute distress. Morbid obesity - EYES: EOMI. Anicteric. - HENT: Moist mucous membranes. - LUNGS: Clear to auscultation bilateral ly, no wheezing, rhonchi, or rales. - CARDIOVASCULAR: Regular rate and rhyth m. No murmur. No JVD. - ABDOMEN: Soft, non-tender and non-dist ended. No palpable masses. - EXTREMITIES: No edema. Peripheral puls es 2+. Non-tender. - NEUROLOGIC: No focal neurological defi cits. CN II-XII grossly intact. - PSYCHIATRIC: Awake, Alert and oriented x 3. Appropriate mood and affect. - SKIN: Sacral deep good ulcer - LYMPH: No cervical lymphadenopathy. Objective Data Vital Signs Vital Signs: Vital Signs - 24 hr 02/01/24 15:44 02/01/24 15:55 02/01/24 20:54 Temperature 98.1 F Pulse Rate 120 H 118 H Respiratory Rate 27 H 15 Blood Pressure 151/64 H 146/98 H Pulse Oximetry 94 97 Oxygen Delivery Room Air Room Air 02/01/24 22:27 02/02/24 00:00 02/01/24 23:00 Temperature 98.4 F Pulse Rate 103 H 115 H 120 H Respiratory Rate 16 Blood Pressure 141/82 H Pulse Oximetry 97 Oxygen Delivery 02/02/24 00:00 02/02/24 02:00 02/02/24 04:00 Temperature Pulse Rate 119 H 124 H 116 H Respiratory Rate 20 Blood Pressure Pulse Oximetry 90 Oxygen Delivery Room Air 02/02/24 04:00 02/02/24 04:00 02/02/24 06:00 Temperature 99.5 F Pulse Rate 107 H 116 H 105 H Respiratory Rate 20 Blood Pressure 146/51 H Pulse Oximetry 90 Oxygen Delivery 02/02/24 08:00 02/02/24 08:48 Temperature 97.3 F L Pulse Rate 104 H Respiratory Rate 16 Blood Pressure 131/73 Pulse Oximetry 91 90 Oxygen Delivery Room Air Intake/Output Intake/Output: Intake & Output 01/30/24 01/31/24 02/01/24 02/02/24 23:59 23:59 23:59 23:59 Intake Total 1100 670 Output Total 650 Balance 1100 20 Meds/Results Medications: Active Medications Generic Name Dose Route Start Last Admin Trade Name Freq PRN Reason Stop Dose Admin Acetaminophen 1,000 mg 02/02/24 05:37 Acetaminophen 500 Mg Tablet PO Q6H PRN Pain 1-3 or fever Apixaban 2.5 mg 02/02/24 09:00 02/02/24 09:01 Apixaban 2.5 Mg Tablet PO 2.5 mg Q12HR EMMIE Administration Aspirin 81 mg 02/02/24 09:00 02/02/24 09:01 Aspirin 81 Mg Enteric Tablet PO 81 mg BID EMMIE Administration Atorvastatin Calcium 10 mg 02/02/24 09:00 02/02/24 09:01 Atorvastatin 10 Mg Tablet PO 10 mg DAILY EMMIE Administration Benztropine Mesylate 0.5 mg 02/02/24 09:00 Benztropine Mesylate 0.5 Mg Tablet PO TID EMMIE Clonidine HCl 0.2 mg 02/02/24 21:00 Clonidine Hcl 0.2 Mg Tablet PO HS [facility] Clotrimazole 1 applic 02/02/24 09:00 02/02/24 09:07 Betamethasone/Clotrimazole Cream 15 Gm Tube TOPICAL 1 applic BID EMMIE Administration Dextrose 12.5 gm 02/02/24 05:39 Dextrose 50% 25 Gm/50 Ml Syringe IV PUSH PRN PRN Hypoglycemia Protocol Donepezil HCl 10 mg 02/02/24 09:00 02/02/24 09:01 Donepezil Hcl 10 Mg Tablet PO 10 mg DAILY EMMIE Administration Duloxetine HCl 30 mg 02/02/24 09:00 02/02/24 09:01 Duloxetine Hcl 30 Mg Capsule. PO 30 mg Q12HR EMMEI Administration Glucagon 1 mg 02/02/24 05:39 Glucagon For Inj 1 Mg Vial IM PRN PRN Hypoglycemia Protocol Glucose 15 gm 02/02/24 05:39 Glucose Oral Gel 15 Gm Of Glucse In 37.5 Gm Tube PO PRN PRN Hypoglycemia Protocol Dextrose 1,000 mls @ 100 mls/hr 02/02/24 05:39 Dextrose 5% 1,000 Ml IVPB PRN PRN Hypoglycemia Protocol Ceftriaxone Sodium 1 gm in 50 mls @ 100 mls/hr 02/02/24 18:00 Rocephin 1 Gm/Ns 50 Ml IVPB Q24H EMMIE Sodium Chloride 1,000 mls @ 75 mls/hr 02/02/24 08:55 Normal Saline Iv IV CONT .[id number] [facility] Insulin Aspart 4 - 8 units 02/02/24 08:00 02/02/24 09:50 Insulin Aspart (*Bkc) 100 Units/Ml SUB-Q 8 units TIDWM EMMIE Administration Protocol Insulin Aspart 2 - 4 units 02/02/24 21:00 Insulin Aspart (*Bkc) 100 Units/Ml SUB-Q HS [facility] Protocol Insulin Glargine 40 units 02/02/24 09:00 02/02/24 09:50 Insulin Glargine (*Bkc) 100 Units/Ml SUB-Q 40 units DAILY EMMIE Administration Lactulose 10 gm 02/02/24 06:10 Lactulose 20 Gm/30 Ml Udc PO BID PRN Constipation Lidocaine 1 patch 02/02/24 09:00 Lidocaine 5% Patch TOPICAL DAILY EMMIE Memantine 28 mg 02/02/24 09:00 02/02/24 09:02 Memantine Hcl Xr 28 Mg Cap PO 03/03/24 08:59 28 mg DAILY EMMIE Administration Metoprolol Tartrate 50 mg 02/02/24 09:00 02/02/24 09:02 Metoprolol Tartrate 50 Mg Tab PO 50 mg Q12HR EMMIE Administration Multivitamins/Minerals 1 tab 02/02/24 09:00 02/02/24 09:01 Multivitamins /C Lutein (Centrum Silver) Tablet *Bkc PO 1 tab DAILY EMMIE Administration Pregabalin 200 mg 02/02/24 17:00 Pregabalin (*Crx) 50 Mg Capsule PO BID [facility] Quetiapine Fumarate 100 mg 02/02/24 09:00 Quetiapine Fumarate 100 Mg Tablet PO Q12HR [facility] Tramadol HCl 50 mg 02/02/24 05:37 02/02/24 06:02 Tramadol Hcl (*Crx) 50 Mg Tablet PO 50 mg TID PRN Administration pain 4-6 Radiology Results: ITS Impressions Head CT 02/01/24 20:07 Impression: No acute intracranial hemorrhage or suspicious mass effect. Stable meningioma within the left cerebellopontine angle, as detailed above. Labs Labs: Laboratory Results - last 24 hr 02/01/24 02/01/24 02/01/24 17:17 19:41 19:42 WBC 10.9 H RBC 4.10 L Hgb 13.0 Hct 40.8 MCV 99.5 MCH 31.7 MCHC 31.9 L RDW 15.9 H Plt Count 177 MPV 10.4 Immature Gran % (Auto) 0.6 H Neut % (Auto) 88.3 H Lymph % (Auto) 5.7 L [place] % (Auto) 4.4 Eos % (Auto) 0.4 Baso % (Auto) 0.6 Lymph # (Auto) 0.62 L [place] # (Auto) 0.5 Eos # (Auto) 0.0 Baso # (Auto) 0.1 Abs Immat Gran (auto) 0.06 H Absolute Neuts (auto) 9.6 H Absolute Nucleated RBC 0.000 Nucleated RBC % 0.0 PT 16.0 H INR 1.2 APTT 31.3 Sodium 137 Potassium 4.6 Chloride 98 Carbon Dioxide 30 Anion Gap 9 BUN 63 H D Creatinine 1.90 H Estim Creat Clear Calc 37 Estimated GFR 26 L Glucose 342 H POC Capillary Glucose Calcium 10.7 H Total Bilirubin 0.7 AST 38 H ALT 33 Alkaline Phosphatase 168 H Total Protein 8.0 Albumin 4.0 Urine Color Yellow Urine Appearance Turbid H Urine pH 5.0 Ur Specific [place] 1.013 Urine Protein 2+ H Urine Glucose (UA) 1+ H Urine Ketones Negative Ur Blood (Man) 3+ H Urine Nitrate Positive H Urine Bilirubin Negative Urine Urobilinogen 0.2 Add Ur Microanalysis Reviewed Leukocyte Esterase Rfl 3+ H Urine RBC >100 H Urine WBC >100 H Ur Squamous Epith Cells None seen Urine Bacteria 4+ H Urine Casts 3-5 02/02/24 02/02/24 07:38 08:28 WBC RBC Hgb Hct MCV MCH MCHC RDW Plt Count MPV Immature Gran % (Auto) Neut % (Auto) Lymph % (Auto) [place] % (Auto) Eos % (Auto) Baso % (Auto) Lymph # (Auto) [place] # (Auto) Eos # (Auto) Baso # (Auto) Abs Immat Gran (auto) Absolute Neuts (auto) Absolute Nucleated RBC Nucleated RBC % PT INR APTT Sodium 137 Potassium 4.3 Chloride 103 Carbon Dioxide 27 Anion Gap 7 BUN 49 H D Creatinine 1.70 H Estim Creat Clear Calc 41 Estimated GFR 30 L Glucose 432 H POC Capillary Glucose 391 H Calcium 8.9 Total Bilirubin AST ALT Alkaline Phosphatase Total Protein Albumin Urine Color Urine Appearance Urine pH Ur Specific [place] Urine Protein Urine Glucose (UA) Urine Ketones Ur Blood (Man) Urine Nitrate Urine Bilirubin Urine Urobilinogen Add Ur Microanalysis Leukocyte Esterase Rfl Urine RBC Urine WBC Ur Squamous Epith Cells Urine Bacteria Urine Casts
[2024-02-02] MEDS: QUEtiapine FUMARATE 100 MG TABLET PO ×2 (11:54→20:23)
[2024-02-02 11:56] LABS: Glucose Point of Care 389 mg/dl (65-105)
[2024-02-02] MEDS: SODIUM CHLORIDE 0.9% IV 1,000 ML 75 ML IV CONT (12:03)
[2024-02-02 15:57] LABS: Glucose Point of Care 364 mg/dl (65-105)
--- NOTE | 2024-02-02 16:03 | PCRCNOTE ---
I talked to the patient about using one of the hospital BiPAP/CPAP machine. Patient said that she does not want one of our machines as she does not wear her CPAP at home. said that the patient wore hers a few times years ago but wouldn't leave it on. I did not leave our equipment in patients room but told her if she changed her mind to let us know. I did talk to the RN and she is aware that the patient did not want our machine.
[2024-02-02] MEDS: LIDOCAINE 5% PATCH 1 PATCH TOPICAL (18:02)
[2024-02-02] MEDS: PREGABALIN (*CRX) 50 MG CAPSULE 200 MG PO (18:07)
[2024-02-02 19:59] LABS: Glucose Point of Care 375 mg/dl (65-105)
[2024-02-02] MEDS: cloNIDine HCL 0.2 MG TABLET PO (20:22)
--- NOTE | 2024-02-03 00:15 | PC.NURSE ---
[facility] faxed and Report given to Em RAGLAND. Patient transferred via bed with all belongings.
[2024-02-03] MEDS: SODIUM CHLORIDE 0.9% IV 1,000 ML 75 ML IV CONT ×2 (00:53→16:30)
[2024-02-03 03:45] VITALS: BP 148/61; PULSE 80; RESP 20; TEMP 36.8; O2SAT 91
[2024-02-03 08:07] LABS: Glucose Point of Care 314 mg/dl (65-105)
[2024-02-03 08:26] VITALS: PULSE 80
[2024-02-03] MEDS: METOPROLOL TARTRATE 50 MG TAB PO ×2 (08:26→20:02)
[2024-02-03] MEDS: ASPIRIN 81 MG ENTERIC TABLET PO ×2 (08:26→17:22)
[2024-02-03] MEDS: PREGABALIN (*CRX) 50 MG CAPSULE 200 MG PO ×2 (08:27→17:25)
[2024-02-03] MEDS: MULTIVITAMINS /C LUTEIN (CENTRUM SILVER) TABLET *BKC 1 TAB PO (08:28)
[2024-02-03] MEDS: APIXABAN 2.5 MG TABLET PO ×2 (08:28→20:03)
[2024-02-03] MEDS: DULoxetine HCL 30 MG CAPSULE.DR PO ×2 (08:28→20:03)
[2024-02-03] MEDS: DONEPEZIL HCL 10 MG TABLET PO (08:28)
[2024-02-03] MEDS: MEMANTINE HCL XR 28 MG CAP PO (08:28)
[2024-02-03] MEDS: ATORVASTATIN 10 MG TABLET PO (08:29)
[2024-02-03] MEDS: BENZTROPINE MESYLATE 0.5 MG TABLET PO ×3 (08:29→17:22)
[2024-02-03] MEDS: INSULIN GLARGINE (*BKC) 100 UNITS/ML 40 UNITS SUB-Q (08:31)
[2024-02-03] MEDS: INSULIN ASPART (*BKC) 100 UNITS/ML SUB-Q ×4 (08:33→20:34)
[2024-02-03] MEDS: QUEtiapine FUMARATE 100 MG TABLET PO ×2 (10:24→20:03)
[2024-02-03] MEDS: BETAMETHASONE/CLOTRIMAZOLE CREAM 15 GM TUBE 1 APPLIC TOPICAL ×2 (10:24→17:28)
--- NOTE | 2024-02-03 11:23 | P.PNIM_ITS ---
Progress Note: A&P Assessment and Plan (1) Catheter-associated urinary tract infection: Qualifiers: Indwelling urinary catheter type: indwelling urethral catheter Encounter type: initial encounter Qualified Code(s): T83.511A - Infection and inflammatory reaction due to indwelling urethral catheter, initial encounter; N39.0 - Urinary tract infection, site not specified Code(s): T83.511A - Infection and inflammatory reaction due to indwelling urethral catheter, initial encounter; N39.0 - Urinary tract infection, site not specified Status: Acute (2) Abnormal finding on urinalysis: Code(s): R82.90 - Unspecified abnormal findings in urine Status: Acute (3) Acute metabolic encephalopathy: Code(s): G93.41 - Metabolic encephalopathy Status: Acute (4) Polypharmacy: Code(s): Z79.899 - Other watermelon inspector (current) drug therapy Status: Acute (5) Acute kidney injury superimposed on stage 3b chronic kidney disease: Code(s): N17.9 - Acute kidney failure, unspecified; N18.32 - Chronic kidney disease, stage 3b Status: Acute (6) Type 2 diabetes mellitus with hyperglycemia, with long-term current use of insulin: Code(s): E11.65 - Type 2 diabetes mellitus with hyperglycemia; Z79.4 - 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 (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) use of insulin Status: Acute (7) Pressure ulcer of buttock: Qualifiers: Pressure injury stage: unspecified pressure injury stage Laterality: unspecified laterality Qualified Code(s): L89.309 - Pressure ulcer of unspecified buttock, unspecified stage Code(s): L89.309 - Pressure ulcer of unspecified buttock, unspecified stage Status: Acute (8) Non compliance w medication regimen: Code(s): Z91.14 - Patient's other noncompliance with medication regimen Status: Acute (9) MALIA on CPAP: Code(s): G47.33 - Obstructive sleep apnea (adult) (pediatric); Z99.89 - Dependence on other enabling machines and devices Status: Chronic (10) Chronic anticoagulation: Code(s): Z79.01 - 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 (current) use of anticoagulants Status: Acute (11) Dementia with behavioral disturbance: Code(s): F03.918 - Unspecified dementia, unspecified severity, with other behavioral disturbance Status: Acute (12) Neurogenic bladder: Code(s): N31.9 - Neuromuscular dysfunction of bladder, unspecified Status: Acute Plan # Acute encephalopathy Likely resulting from UTI and dehydration CT head shows no acute intracranial issues, stable meningioma Patient was confused upon arrival in the ED Patient has pyuria on urinalysis, also has leukocytosis, elevated BUN creatinine above baseline Neuro check Fall precaution # Complicated UTI with underlying indwelling catheter Patient has indwelling catheter. UA shows pyuria, hematuria Pending urine culture with E coli susceptibility pending Continue ceftriaxone iv Will replace Vigil catheter Renal ultrasound with no hydronephrosis # SCAR on CKD Elevated BUN creatinine above baseline with creatinine at 1.9 Likely secondary to UTI and dehydration Patient received fluid resuscitation for L in the ED Continue normal saline IV # uncontrolled diabetes and has acute acute hyperglycemia. Will resume patient's home Lantus and will [facility] with Accu-Cheks a.c. HS Diabetic diet Hypoglycemia protocol has been ordered as needed. # History of PE Continue Eliquis 2.5 mg b.i.d. p.o. # Sacral decubital ulcer Consult Wound Care # MALIA Patient does have history of obstructive sleep apnea and obesity hypoventilation syndrome. Will place patient on CPAP/BiPAP at night. # DVT prophylaxis on Eliquis Subjective Date/time seen: 02/03/24 11:23 Interval history: No overnight events. Feeling better. Denies any new complaints. No chest pain or shortness of breath. Review of Systems Review of Systems: All systems reviewed & are unremarkable except as noted in HPI and below Exam Narrative: GENERAL: Pleasant, in no acute distress. Morbid obesity - EYES: EOMI. Anicteric. - HENT: Moist mucous membranes. - LUNGS: Clear to auscultation bilateral ly, no wheezing, rhonchi, or rales. - CARDIOVASCULAR: Regular rate and rhyth m. No murmur. No JVD. - ABDOMEN: Soft, non-tender and non-dist ended. No palpable masses. - EXTREMITIES: No edema. Peripheral puls es 2+. Non-tender. - NEUROLOGIC: No focal neurological defi cits. CN II-XII grossly intact. - PSYCHIATRIC: Awake, Alert and oriented x 3. Appropriate mood and affect. - SKIN: Sacral deep good ulcer - LYMPH: No cervical lymphadenopathy. Objective Data Vital Signs Vital Signs: Vital Signs - 24 hr 02/02/24 11:43 02/02/24 16:00 02/02/24 12:00 Temperature 98.6 F 98.1 F Pulse Rate 81 88 88 Respiratory Rate 24 H 16 Blood Pressure 144/85 H 155/89 H Pulse Oximetry 91 93 Oxygen Delivery 02/02/24 12:00 02/02/24 14:00 02/02/24 16:00 Temperature Pulse Rate 99 88 Respiratory Rate Blood Pressure Pulse Oximetry Oxygen Delivery Room Air 02/02/24 16:00 02/02/24 18:00 02/02/24 19:41 Temperature 98.4 F Pulse Rate 97 90 Respiratory Rate 20 Blood Pressure 150/70 H Pulse Oximetry 93 Oxygen Delivery Room Air 02/02/24 20:22 02/02/24 20:00 02/02/24 20:00 Temperature Pulse Rate 89 89 91 Respiratory Rate 20 Blood Pressure Pulse Oximetry 93 Oxygen Delivery Room Air 02/02/24 22:00 02/03/24 03:45 02/03/24 08:26 Temperature 98.3 F Pulse Rate 87 80 80 Respiratory Rate 20 Blood Pressure 148/61 H Pulse Oximetry 91 Oxygen Delivery Intake/Output Intake/Output: Intake & Output 01/31/24 02/01/24 02/02/24 02/03/24 23:59 23:59 23:59 23:59 Intake Total 1100 1210 1322.5 Output Total 2050 650 Balance 1100 -840 672.5 Meds/Results Medications: Active Medications Generic Name Dose Route Start Last Admin Trade Name Freq PRN Reason Stop Dose Admin Acetaminophen 1,000 mg 02/02/24 05:37 Acetaminophen 500 Mg Tablet PO Q6H PRN Pain 1-3 or fever Apixaban 2.5 mg 02/02/24 09:00 02/03/24 08:28 Apixaban 2.5 Mg Tablet PO 2.5 mg Q12HR EMMIE Administration Aspirin 81 mg 02/02/24 09:00 02/03/24 08:26 Aspirin 81 Mg Enteric Tablet PO 81 mg BID EMMIE Administration Atorvastatin Calcium 10 mg 02/02/24 09:00 02/03/24 08:29 Atorvastatin 10 Mg Tablet PO 10 mg DAILY EMMIE Administration Benztropine Mesylate 0.5 mg 02/02/24 09:00 02/03/24 08:29 Benztropine Mesylate 0.5 Mg Tablet PO 0.5 mg TID EMMIE Administration Clonidine HCl 0.2 mg 02/02/24 21:00 02/02/24 20:22 Clonidine Hcl 0.2 Mg Tablet PO 0.2 mg HS EMMIE Administration Clotrimazole 1 applic 02/02/24 09:00 02/03/24 10:24 Betamethasone/Clotrimazole Cream 15 Gm Tube TOPICAL 1 applic BID EMMIE Administration Dextrose 12.5 gm 02/02/24 05:39 Dextrose 50% 25 Gm/50 Ml Syringe IV PUSH PRN PRN Hypoglycemia Protocol Donepezil HCl 10 mg 02/02/24 09:00 02/03/24 08:28 Donepezil Hcl 10 Mg Tablet PO 10 mg DAILY EMMIE Administration Duloxetine HCl 30 mg 02/02/24 09:00 02/03/24 08:28 Duloxetine Hcl 30 Mg Capsule.Dr PO 30 mg Q12HR EMMIE Administration Glucagon 1 mg 02/02/24 05:39 Glucagon For Inj 1 Mg Vial IM PRN PRN Hypoglycemia Protocol Glucose 15 gm 02/02/24 05:39 Glucose Oral Gel 15 Gm Of Glucse In 37.5 Gm Tube PO PRN PRN Hypoglycemia Protocol Dextrose 1,000 mls @ 100 mls/hr 02/02/24 05:39 Dextrose 5% 1,000 Ml IVPB PRN PRN Hypoglycemia Protocol Ceftriaxone Sodium 1 gm in 50 mls @ 100 mls/hr 02/02/24 18:00 02/02/24 18:17 Rocephin 1 Gm/Ns 50 Ml IVPB 100 mls/hr Q24H EMMIE Administration Sodium Chloride 1,000 mls @ 75 mls/hr 02/02/24 08:55 02/03/24 00:53 Normal Saline Iv IV CONT 75 mls/hr .[id number] EMMIE Administration Insulin Aspart 4 - 8 units 02/02/24 08:00 02/03/24 08:33 Insulin Aspart (*Bkc) 100 Units/Ml SUB-Q 6 units TIDWM EMMIE Administration Protocol Insulin Aspart 2 - 4 units 02/02/24 21:00 02/02/24 20:15 Insulin Aspart (*Bkc) 100 Units/Ml SUB-Q 4 units HS EMMIE Administration Protocol Insulin Glargine 40 units 02/02/24 09:00 02/03/24 08:31 Insulin Glargine (*Bkc) 100 Units/Ml SUB-Q 40 units DAILY EMMIE Administration Lactulose 10 gm 02/02/24 06:10 Lactulose 20 Gm/30 Ml Udc PO BID PRN Constipation Lidocaine 1 patch 02/02/24 09:00 02/03/24 10:21 Lidocaine 5% Patch TOPICAL Not Given DAILY EMMIE Memantine 28 mg 02/02/24 09:00 02/03/24 08:28 Memantine Hcl Xr 28 Mg Cap PO 03/03/24 08:59 28 mg DAILY EMMIE Administration Metoprolol Tartrate 50 mg 02/02/24 09:00 02/03/24 08:26 Metoprolol Tartrate 50 Mg Tab PO 50 mg Q12HR EMMIE Administration Multivitamins/Minerals 1 tab 02/02/24 09:00 02/03/24 08:28 Multivitamins /C Lutein (Centrum Silver) Tablet *Bkc PO 1 tab DAILY EMMIE Administration Pregabalin 200 mg 02/02/24 17:00 02/03/24 08:27 Pregabalin (*Crx) 50 Mg Capsule PO 200 mg BID EMMIE Administration Quetiapine Fumarate 100 mg 02/02/24 09:00 02/03/24 10:24 Quetiapine Fumarate 100 Mg Tablet PO 100 mg Q12HR EMMIE Administration Tramadol HCl 50 mg 02/02/24 05:37 02/02/24 13:59 Tramadol Hcl (*Crx) 50 Mg Tablet PO 50 mg TID PRN Administration pain 4-6 Radiology Results: ITS Impressions Head CT 02/01/24 20:07 Impression: No acute intracranial hemorrhage or suspicious mass effect. Stable meningioma within the left cerebellopontine angle, as detailed above. Renal Ultrasound 02/02/24 16:39 IMPRESSION: 1. Normal kidney sizes. No hydronephrosis. Labs Labs: Laboratory Results - last 24 hr 02/02/24 02/02/24 02/02/24 11:16 15:51 19:44 POC Capillary Glucose 389 H 364 H 375 H 02/03/24 08:02 POC Capillary Glucose 314 H
[2024-02-03 11:35] LABS: Glucose Point of Care 347 mg/dl (65-105)
[2024-02-03 11:41] LABS: Basophils Percent Auto 0.2 % (0.2-1.2); Eosinophils Absolute Auto 0.2 K/mm3 (0-0.3); Eosinophils Percent Auto 2.8 % (0-4.4); Hematocrit 33.1 % (37.0-47.0); Hemoglobin 10.4 g/dL (12.0-15.0); Immature Granulocyte Absolute 0.02 K/mm3 (0.00-0.031); Immature Granulocyte Percent A 0.3 % (0-0.5); Lymphocytes Percent Auto 13.8 % (18.3-44.2); Mean Corpuscular HGB Conc 31.4 g/dl (32-36); Mean Corpuscular Hemoglobin 31.9 pg (26-34); Mean Corpuscular Volume 101.5 fl (80-100); Monocytes Absolute Auto 0.5 K/mm3 (0.1-0.6); Monocytes Percent Auto 8.4 % (2.6-8.5); Neutrophils Absolute Auto 4.3 K/mm3 (1.3-6.7); Neutrophils Percent Auto 74.5 % (45.5-73.1); Platelet Count Result 120 k/mm3 (150-375); Red Blood Count 3.26 M/mm3 (4.2-5.4); Red Cell Distribution Width 16.2 % (11.5-14.5); White Blood Count 5.8 K/mm3 (4.5-10.0)
[2024-02-03 12:11] LABS: Alanine Aminotransferase 35 U/L (6-35); Alkaline Phosphatase 120 U/L (38-126); Anion Gap 4 mmol/L (4-12); Aspartate Amino Transferase 40 U/L (14-36); Bilirubin,Total 0.5 mg/dL (0.2-1.3); Blood Urea Nitrogen 46 mg/dL (7-17); Calcium 8.6 mg/dL (8.4-10.2); Carbon Dioxide 27 mmol/L (22-30); Chloride 104 mmol/L (98-107); Estimated CRCL calculation 42 ml/min; Estimated Glomerular Filt Rate 30; Glucose 327 mg/dL (65-110); Magnesium 2.2 mg/dL (1.6-2.3); Potassium 4.5 mmol/L (3.4-5.0); Sodium 135 mmol/L (137-145)
[2024-02-03] MEDS: INSULIN ASPART (*BKC) 100 UNITS/ML 11 UNITS SUB-Q ×2 (12:40→17:26)
[2024-02-03 14:10] LABS: Hemoglobin A1C 10.1 % (<5.7)
[2024-02-03 14:53] VITALS: BP 149/58; PULSE 89; RESP 22; TEMP 36.2; O2SAT 95
[2024-02-03 17:02] LABS: Glucose Point of Care 321 mg/dl (65-105)
[2024-02-03] MEDS: ACETAMINOPHEN 500 MG TABLET 1000 MG PO (17:23)
[2024-02-03 20:00] VITALS: BP 142/55; PULSE 85; RESP 20; TEMP 36.6; O2SAT 100
[2024-02-03] MEDS: cloNIDine HCL 0.2 MG TABLET PO (20:03)
[2024-02-03 20:29] LABS: Glucose Point of Care 249 mg/dl (65-105)
[2024-02-04 03:50] VITALS: BP 150/80; PULSE 77; RESP 20; TEMP 36.6; O2SAT 96
[2024-02-04 05:51] LABS: Basophils Percent Auto 0.6 % (0.2-1.2); Eosinophils Absolute Auto 0.2 K/mm3 (0-0.3); Eosinophils Percent Auto 4.3 % (0-4.4); Hematocrit 34.1 % (37.0-47.0); Hemoglobin 10.7 g/dL (12.0-15.0); Immature Granulocyte Absolute 0.03 K/mm3 (0.00-0.031); Immature Granulocyte Percent A 0.6 % (0-0.5); Lymphocytes Absolute Auto 0.88 K/mm3 (0.9-3.2); Lymphocytes Percent Auto 18.7 % (18.3-44.2); Mean Corpuscular HGB Conc 31.4 g/dl (32-36); Mean Corpuscular Hemoglobin 32.3 pg (26-34); Mean Platelet Volume 11.2 fl (7.4-10.4); Monocytes Absolute Auto 0.5 K/mm3 (0.1-0.6); Monocytes Percent Auto 9.6 % (2.6-8.5); Neutrophils Absolute Auto 3.1 K/mm3 (1.3-6.7); Neutrophils Percent Auto 66.2 % (45.5-73.1); Platelet Count Result 114 k/mm3 (150-375); Red Blood Count 3.31 M/mm3 (4.2-5.4); Red Cell Distribution Width 16.1 % (11.5-14.5); White Blood Count 4.7 K/mm3 (4.5-10.0)
[2024-02-04 06:03] LABS: Alanine Aminotransferase 41 U/L (6-35); Albumin Level 2.9 g/dL (3.5-5.1); Alkaline Phosphatase 118 U/L (38-126); Anion Gap 4 mmol/L (4-12); Aspartate Amino Transferase 51 U/L (14-36); Bilirubin,Total 0.4 mg/dL (0.2-1.3); Blood Urea Nitrogen 44 mg/dL (7-17); Calcium 8.8 mg/dL (8.4-10.2); Carbon Dioxide 29 mmol/L (22-30); Chloride 106 mmol/L (98-107); Estimated CRCL calculation 44 ml/min; Estimated Glomerular Filt Rate 32; Glucose 223 mg/dL (65-110); Magnesium 2.4 mg/dL (1.6-2.3); Potassium 4.1 mmol/L (3.4-5.0); Sodium 139 mmol/L (137-145)
[2024-02-04] MEDS: SODIUM CHLORIDE 0.9% IV 1,000 ML 75 ML IV CONT (06:22)
[2024-02-04 07:59] LABS: Glucose Point of Care 260 mg/dl (65-105)
[2024-02-04] MEDS: MEMANTINE HCL XR 28 MG CAP PO (09:02)
[2024-02-04] MEDS: APIXABAN 2.5 MG TABLET PO ×2 (09:02→20:10)
[2024-02-04] MEDS: QUEtiapine FUMARATE 100 MG TABLET PO ×2 (09:02→20:10)
[2024-02-04] MEDS: BENZTROPINE MESYLATE 0.5 MG TABLET PO ×3 (09:02→17:03)
[2024-02-04] MEDS: DONEPEZIL HCL 10 MG TABLET PO (09:02)
[2024-02-04] MEDS: MULTIVITAMINS /C LUTEIN (CENTRUM SILVER) TABLET *BKC 1 TAB PO (09:03)
[2024-02-04] MEDS: ASPIRIN 81 MG ENTERIC TABLET PO ×2 (09:03→17:03)
[2024-02-04] MEDS: ATORVASTATIN 10 MG TABLET PO (09:03)
[2024-02-04] MEDS: DULoxetine HCL 30 MG CAPSULE.DR PO ×2 (09:03→20:10)
[2024-02-04] MEDS: PREGABALIN (*CRX) 50 MG CAPSULE 200 MG PO ×2 (09:03→17:03)
[2024-02-04 09:04] VITALS: PULSE 86
[2024-02-04] MEDS: METOPROLOL TARTRATE 50 MG TAB PO ×2 (09:04→20:09)
[2024-02-04] MEDS: INSULIN GLARGINE (*BKC) 100 UNITS/ML 50 UNITS SUB-Q (09:06)
[2024-02-04] MEDS: INSULIN ASPART (*BKC) 100 UNITS/ML SUB-Q ×4 (09:06→21:38)
[2024-02-04] MEDS: INSULIN ASPART (*BKC) 100 UNITS/ML 11 UNITS SUB-Q (09:07)
[2024-02-04 12:01] LABS: Glucose Point of Care 319 mg/dl (65-105)
--- NOTE | 2024-02-04 12:02 | P.PNIM_ITS ---
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 Status: Acute (5) Acute kidney injury superimposed on stage 3b chronic kidney disease: Code(s): N17.9 - Acute kidney failure, unspecified; N18.32 - Chronic kidney disease, stage 3b Status: Acute (6) Type 2 diabetes mellitus with hyperglycemia, with long-term current use of insulin: Code(s): E11.65 - Type 2 diabetes mellitus with hyperglycemia; Z79.4 - 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 of insulin Status: Acute (7) Pressure ulcer of buttock: Code(s): L89.309 - Pressure ulcer of unspecified buttock, unspecified stage Status: Acute (8) Non compliance w medication regimen: Code(s): Z91.14 - Patient's other noncompliance with medication regimen Status: Acute (9) MALIA on CPAP: Code(s): G47.33 - Obstructive sleep apnea (adult) (pediatric); Z99.89 - Dependence on other enabling machines and devices Status: Chronic (10) Chronic anticoagulation: Code(s): Z79.01 - intermediate (current) use of anticoagulants Status: Acute (11) Dementia with behavioral disturbance: Code(s): F03.918 - Unspecified dementia, unspecified severity, with other behavioral disturbance Status: Acute (12) Neurogenic bladder: Code(s): N31.9 - Neuromuscular dysfunction of bladder, unspecified Status: Acute Plan # Acute encephalopathy Likely resulting from UTI and dehydration CT head shows no acute intracranial issues, stable meningioma Patient was confused upon arrival in the ED Patient has pyuria on urinalysis, also has leukocytosis, elevated BUN creatinine above baseline Neuro check Fall precaution # Complicated UTI with underlying indwelling catheter Patient has indwelling catheter. UA shows pyuria, hematuria Pending urine culture with E coli susceptibility pending Continue ceftriaxone iv Will replace Vigil catheter Renal ultrasound with no hydronephrosis # SCAR on CKD Elevated BUN creatinine above baseline with creatinine at 1.9 Likely secondary to UTI and dehydration Patient received fluid resuscitation for L in the ED Continue normal saline IV will stop this today. # uncontrolled diabetes and has acute acute hyperglycemia. Will resume patient's home Lantus and will add high-dose sliding scale at [facility] with Accu-Cheks a.c. HS Diabetic diet Hypoglycemia protocol has been ordered as needed. A1c at 10.1 # History of PE Continue Eliquis 2.5 mg b.i.d. p.o. # Sacral decubital ulcer Consult Wound Care # MALIA Patient does have history of obstructive sleep apnea and obesity hypoventilation syndrome. Patient on CPAP/BiPAP at night. # DVT prophylaxis on Eliquis Subjective Date/time seen: 02/04/24 12:02 Interval history: No overnight events. Feels weak. No nausea vomiting. No abdominal pain. Review of Systems Review of Systems: All systems reviewed & are unremarkable except as noted in HPI and below Exam Narrative: GENERAL: Pleasant, in no acute distress. Morbid obesity - EYES: EOMI. Anicteric. - HENT: Moist mucous membranes. - LUNGS: Clear to auscultation bilateral ly, no wheezing, rhonchi, or rales. - CARDIOVASCULAR: Regular rate and rhyth m. No murmur. No JVD. - ABDOMEN: Soft, non-tender and non-dist ended. No palpable masses. - EXTREMITIES: No edema. Peripheral puls es 2+. Non-tender. - NEUROLOGIC: No focal neurological defi cits. CN II-XII grossly intact. - PSYCHIATRIC: Awake, Alert and oriented x 3. Appropriate mood and affect. - SKIN: Sacral deep good ulcer - LYMPH: No cervical lymphadenopathy. Objective Data Vital Signs Vital Signs: Vital Signs - 24 hr 02/03/24 14:53 02/03/24 20:00 02/03/24 20:00 Temperature 97.2 F L 97.8 F Pulse Rate 89 85 85 Respiratory Rate 22 H 20 20 Blood Pressure 149/58 H 142/55 H Pulse Oximetry 95 100 100 Oxygen Delivery Room Air 02/04/24 03:50 02/04/24 09:04 Temperature 97.8 F Pulse Rate 77 86 Respiratory Rate 20 Blood Pressure 150/80 H Pulse Oximetry 96 Oxygen Delivery Intake/Output Intake/Output: Intake & Output 02/01/24 02/02/24 02/03/24 02/04/24 23:59 23:59 23:59 23:59 Intake Total 1100 1260 2612.5 1490 Output Total 2050 1550 600 Balance 1100 -790 1062.5 890 Meds/Results Medications: Active Medications Generic Name Dose Route Start Last Admin Trade Name Freq PRN Reason Stop Dose Admin Acetaminophen 1,000 mg 02/02/24 05:37 02/03/24 17:23 Acetaminophen 500 Mg Tablet PO 1,000 mg Q6H PRN Administration Pain 1-3 or fever Apixaban 2.5 mg 02/02/24 09:00 02/04/24 09:02 Apixaban 2.5 Mg Tablet PO 2.5 mg Q12HR EMMIE Administration Aspirin 81 mg 02/02/24 09:00 02/04/24 09:03 Aspirin 81 Mg Enteric Tablet PO 81 mg BID EMMIE Administration Atorvastatin Calcium 10 mg 02/02/24 09:00 02/04/24 09:03 Atorvastatin 10 Mg Tablet PO 10 mg DAILY EMMIE Administration Benztropine Mesylate 0.5 mg 02/02/24 09:00 02/04/24 09:02 Benztropine Mesylate 0.5 Mg Tablet PO 0.5 mg TID EMMIE Administration Clonidine HCl 0.2 mg 02/02/24 21:00 02/03/24 20:03 Clonidine Hcl 0.2 Mg Tablet PO 0.2 mg HS EMMIE Administration Clotrimazole 1 applic 02/02/24 09:00 02/03/24 17:28 Betamethasone/Clotrimazole Cream 15 Gm Tube TOPICAL 1 applic BID EMMIE Administration Dextrose 12.5 gm 02/02/24 05:39 Dextrose 50% 25 Gm/50 Ml Syringe IV PUSH PRN PRN Hypoglycemia Protocol Donepezil HCl 10 mg 02/02/24 09:00 02/04/24 09:02 Donepezil Hcl 10 Mg Tablet PO 10 mg DAILY EMMIE Administration Duloxetine HCl 30 mg 02/02/24 09:00 02/04/24 09:03 Duloxetine Hcl 30 Mg Capsule.Dr PO 30 mg Q12HR EMMIE Administration Glucagon 1 mg 02/02/24 05:39 Glucagon For Inj 1 Mg Vial IM PRN PRN Hypoglycemia Protocol Glucose 15 gm 02/02/24 05:39 Glucose Oral Gel 15 Gm Of Glucse In 37.5 Gm Tube PO PRN PRN Hypoglycemia Protocol Dextrose 1,000 mls @ 100 mls/hr 02/02/24 05:39 Dextrose 5% 1,000 Ml IVPB PRN PRN Hypoglycemia Protocol Ceftriaxone Sodium 1 gm in 50 mls @ 100 mls/hr 02/02/24 18:00 02/03/24 17:57 Rocephin 1 Gm/Ns 50 Ml IVPB Infused Q24H EMMIE Infusion Sodium Chloride 1,000 mls @ 75 mls/hr 02/02/24 08:55 02/04/24 06:22 Normal Saline Iv IV CONT 75 mls/hr .[id number] EMMIE Administration Insulin Aspart 4 - 8 units 02/02/24 08:00 02/04/24 09:06 Insulin Aspart (*Bkc) 100 Units/Ml SUB-Q 5 units TIDWM EMMIE Administration Protocol Insulin Aspart 2 - 4 units 02/02/24 21:00 02/03/24 20:34 Insulin Aspart (*Bkc) 100 Units/Ml SUB-Q 2 units HS EMMIE Administration Protocol Insulin Aspart 11 units 02/03/24 12:00 02/04/24 09:07 Insulin Aspart (*Bkc) 100 Units/Ml 0.083 units/kg (11 units) 11 units SUB-Q Administration TIDWM EMMIE Insulin Glargine 50 units 02/04/24 09:00 02/04/24 09:06 Insulin Glargine (*Bkc) 100 Units/Ml SUB-Q 50 units DAILY EMMIE Administration Lactulose 10 gm 02/02/24 06:10 Lactulose 20 Gm/30 Ml Udc PO BID PRN Constipation Lidocaine 1 patch 02/02/24 09:00 02/03/24 10:21 Lidocaine 5% Patch TOPICAL Not Given DAILY EMMIE Memantine 28 mg 02/02/24 09:00 02/04/24 09:02 Memantine Hcl Xr 28 Mg Cap PO 03/03/24 08:59 28 mg DAILY EMMIE Administration Metoprolol Tartrate 50 mg 02/02/24 09:00 02/04/24 09:04 Metoprolol Tartrate 50 Mg Tab PO 50 mg Q12HR EMMIE Administration Multivitamins/Minerals 1 tab 02/02/24 09:00 02/04/24 09:03 Multivitamins /C Lutein (Centrum Silver) Tablet *Bkc PO 1 tab DAILY EMMIE Administration Pregabalin 200 mg 02/02/24 17:00 02/04/24 09:03 Pregabalin (*Crx) 50 Mg Capsule PO 200 mg BID EMMIE Administration Quetiapine Fumarate 100 mg 02/02/24 09:00 02/04/24 09:02 Quetiapine Fumarate 100 Mg Tablet PO 100 mg Q12HR EMMIE Administration Tramadol HCl 50 mg 02/02/24 05:37 02/02/24 13:59 Tramadol Hcl (*Crx) 50 Mg Tablet PO 50 mg TID PRN Administration pain 4-6 Radiology Results: ITS Impressions Head CT 02/01/24 20:07 Impression: No acute intracranial hemorrhage or suspicious mass effect. Stable meningioma within the left cerebellopontine angle, as detailed above. Renal Ultrasound 02/02/24 16:39 IMPRESSION: 1. Normal kidney sizes. No hydronephrosis. Labs Labs: Laboratory Results - last 24 hr 02/03/24 02/03/24 02/03/24 11:33 16:56 20:26 WBC 5.8 RBC 3.26 L Hgb 10.4 L Hct 33.1 L MCV 101.5 H MCH 31.9 MCHC 31.4 L RDW 16.2 H Plt Count 120 L MPV 11.0 H Immature Gran % (Auto) 0.3 Neut % (Auto) 74.5 H Lymph % (Auto) 13.8 L [place] % (Auto) 8.4 Eos % (Auto) 2.8 Baso % (Auto) 0.2 Lymph # (Auto) 0.80 L [place] # (Auto) 0.5 Eos # (Auto) 0.2 Baso # (Auto) 0.0 Abs Immat Gran (auto) 0.02 Absolute Neuts (auto) 4.3 Absolute Nucleated RBC 0.000 Nucleated RBC % 0.0 Sodium 135 L Potassium 4.5 Chloride 104 Carbon Dioxide 27 Anion Gap 4 BUN 46 H Creatinine 1.70 H Estim Creat Clear Calc 42 Estimated GFR 30 L Glucose 327 H POC Capillary Glucose 321 H 249 H Hemoglobin A1c 10.1 H Calcium 8.6 Magnesium 2.2 Total Bilirubin 0.5 AST 40 H ALT 35 Alkaline Phosphatase 120 Total Protein 6.0 L Albumin 3.0 L 02/04/24 02/04/24 02/04/24 05:02 07:56 11:58 WBC 4.7 RBC 3.31 L Hgb 10.7 L Hct 34.1 L MCV 103.0 H MCH 32.3 MCHC 31.4 L RDW 16.1 H Plt Count 114 L MPV 11.2 H Immature Gran % (Auto) 0.6 H Neut % (Auto) 66.2 Lymph % (Auto) 18.7 [place] % (Auto) 9.6 H Eos % (Auto) 4.3 Baso % (Auto) 0.6 Lymph # (Auto) 0.88 L [place] # (Auto) 0.5 Eos # (Auto) 0.2 Baso # (Auto) 0.0 Abs Immat Gran (auto) 0.03 Absolute Neuts (auto) 3.1 Absolute Nucleated RBC 0.000 Nucleated RBC % 0.0 Sodium 139 Potassium 4.1 Chloride 106 Carbon Dioxide 29 Anion Gap 4 BUN 44 H Creatinine 1.60 H Estim Creat Clear Calc 44 Estimated GFR 32 L Glucose 223 H POC Capillary Glucose 260 H 319 H Hemoglobin A1c Calcium 8.8 Magnesium 2.4 H Total Bilirubin 0.4 AST 51 H ALT 41 H Alkaline Phosphatase 118 Total Protein 6.0 L Albumin 2.9 L
[2024-02-04] MEDS: traMADol HCL (*CRX) 50 MG TABLET PO ×2 (12:10→23:10)
[2024-02-04] MEDS: BETAMETHASONE/CLOTRIMAZOLE CREAM 15 GM TUBE 1 APPLIC TOPICAL ×2 (12:11→17:04)
[2024-02-04] MEDS: INSULIN ASPART (*BKC) 100 UNITS/ML 15 UNITS SUB-Q ×2 (12:11→17:04)
[2024-02-04] MEDS: LIDOCAINE 5% PATCH 1 PATCH TOPICAL (12:11)
[2024-02-04 14:51] VITALS: BP 150/53; PULSE 93; RESP 14; TEMP 36.2; O2SAT 92
[2024-02-04 16:47] LABS: Glucose Point of Care 267 mg/dl (65-105)
[2024-02-04 20:00] VITALS: BP 166/62; PULSE 84; RESP 18; TEMP 37.1; O2SAT 95
[2024-02-04] MEDS: cloNIDine HCL 0.2 MG TABLET PO (20:10)
[2024-02-04 21:05] LABS: Glucose Point of Care 257 mg/dl (65-105)
[2024-02-05 06:17] VITALS: BP 154/71; PULSE 71; RESP 18; TEMP 36.7; O2SAT 92
[2024-02-05 07:58] LABS: Glucose Point of Care 206 mg/dl (65-105)
[2024-02-05 08:00] VITALS: BP 154/60; PULSE 77; RESP 16; TEMP 36.7; O2SAT 92
[2024-02-05] MEDS: ASPIRIN 81 MG ENTERIC TABLET PO (08:23)
[2024-02-05] MEDS: MULTIVITAMINS /C LUTEIN (CENTRUM SILVER) TABLET *BKC 1 TAB PO (08:23)
[2024-02-05] MEDS: MEMANTINE HCL XR 28 MG CAP PO (08:23)
[2024-02-05] MEDS: DONEPEZIL HCL 10 MG TABLET PO (08:23)
[2024-02-05] MEDS: APIXABAN 2.5 MG TABLET PO (08:23)
[2024-02-05] MEDS: QUEtiapine FUMARATE 100 MG TABLET PO (08:23)
[2024-02-05 08:24] VITALS: PULSE 68
[2024-02-05] MEDS: DULoxetine HCL 30 MG CAPSULE.DR PO (08:24)
[2024-02-05] MEDS: ATORVASTATIN 10 MG TABLET PO (08:24)
[2024-02-05] MEDS: PREGABALIN (*CRX) 50 MG CAPSULE 200 MG PO (08:24)
[2024-02-05] MEDS: BENZTROPINE MESYLATE 0.5 MG TABLET PO ×2 (08:24→12:39)
[2024-02-05] MEDS: METOPROLOL TARTRATE 50 MG TAB PO (08:24)
[2024-02-05] MEDS: INSULIN GLARGINE (*BKC) 100 UNITS/ML 50 UNITS SUB-Q (08:26)
[2024-02-05] MEDS: INSULIN ASPART (*BKC) 100 UNITS/ML 15 UNITS SUB-Q ×2 (08:26→12:40)
[2024-02-05] MEDS: BETAMETHASONE/CLOTRIMAZOLE CREAM 15 GM TUBE 1 APPLIC TOPICAL (08:26)
[2024-02-05] MEDS: INSULIN ASPART (*BKC) 100 UNITS/ML SUB-Q (08:26)
[2024-02-05 08:44] LABS: Basophils Percent Auto 0.6 % (0.2-1.2); Eosinophils Absolute Auto 0.2 K/mm3 (0-0.3); Eosinophils Percent Auto 3.4 % (0-4.4); Hematocrit 33.8 % (37.0-47.0); Hemoglobin 10.6 g/dL (12.0-15.0); Immature Granulocyte Absolute 0.04 K/mm3 (0.00-0.031); Immature Granulocyte Percent A 0.8 % (0-0.5); Lymphocytes Absolute Auto 1.23 K/mm3 (0.9-3.2); Lymphocytes Percent Auto 26.1 % (18.3-44.2); Mean Corpuscular HGB Conc 31.4 g/dl (32-36); Mean Corpuscular Hemoglobin 31.5 pg (26-34); Mean Corpuscular Volume 100.3 fl (80-100); Mean Platelet Volume 10.8 fl (7.4-10.4); Monocytes Absolute Auto 0.4 K/mm3 (0.1-0.6); Monocytes Percent Auto 8.7 % (2.6-8.5); Neutrophils Absolute Auto 2.8 K/mm3 (1.3-6.7); Neutrophils Percent Auto 60.4 % (45.5-73.1); Platelet Count Result 136 k/mm3 (150-375); Red Blood Count 3.37 M/mm3 (4.2-5.4); Red Cell Distribution Width 15.5 % (11.5-14.5); White Blood Count 4.7 K/mm3 (4.5-10.0)
[2024-02-05 08:53] LABS: Alanine Aminotransferase 51 U/L (6-35); Albumin Level 3.2 g/dL (3.5-5.1); Alkaline Phosphatase 124 U/L (38-126); Anion Gap 5 mmol/L (4-12); Aspartate Amino Transferase 52 U/L (14-36); Bilirubin,Total 0.4 mg/dL (0.2-1.3); Blood Urea Nitrogen 35 mg/dL (7-17); Carbon Dioxide 29 mmol/L (22-30); Chloride 107 mmol/L (98-107); Estimated CRCL calculation 47 ml/min; Estimated Glomerular Filt Rate 34; Glucose 205 mg/dL (65-110); Magnesium 2.3 mg/dL (1.6-2.3); Potassium 4.1 mmol/L (3.4-5.0); Sodium 141 mmol/L (137-145)
--- NOTE | 2024-02-05 11:43 | P.DS_ITS ---
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 Status: Acute (5) Acute kidney injury superimposed on stage 3b chronic kidney disease: Code(s): N17.9 - Acute kidney failure, unspecified; N18.32 - Chronic kidney disease, stage 3b Status: Acute (6) Type 2 diabetes mellitus with hyperglycemia, with long-term current use of insulin: Code(s): E11.65 - Type 2 diabetes mellitus with hyperglycemia; Z79.4 - 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 of insulin Status: Acute (7) Pressure ulcer of buttock: Code(s): L89.309 - Pressure ulcer of unspecified buttock, unspecified stage Status: Acute (8) Non compliance w medication regimen: Code(s): Z91.14 - Patient's other noncompliance with medication regimen Status: Acute (9) MALIA on CPAP: Code(s): G47.33 - Obstructive sleep apnea (adult) (pediatric); Z99.89 - Dependence on other enabling machines and devices Status: Chronic (10) Chronic anticoagulation: Code(s): Z79.01 - intermediate (current) use of anticoagulants Status: Acute (11) Dementia with behavioral disturbance: Code(s): F03.918 - Unspecified dementia, unspecified severity, with other behavioral disturbance Status: Acute (12) Neurogenic bladder: Code(s): N31.9 - Neuromuscular dysfunction of bladder, unspecified Status: Acute DS: Summary Hospital Course Hospital Course: # Acute encephalopathy Likely resulting from UTI and dehydration CT head shows no acute intracranial issues, stable meningioma Patient was confused upon arrival in the ED Patient has pyuria on urinalysis, also has leukocytosis, elevated BUN creatinine above baseline Neuro check improving Fall precaution # Complicated UTI with underlying indwelling catheter Patient has indwelling catheter. UA shows pyuria, hematuria Pending urine culture with E coli susceptibility pending Continue ceftriaxone iv Vigil catheter placed. She gets home health to replace catheter every month Renal ultrasound with no hydronephrosis # SCAR on CKD Elevated BUN creatinine above baseline with creatinine at 1.9 Likely secondary to UTI and dehydration Patient received fluid resuscitation for L in the ED IV fluid has been stopped # uncontrolled diabetes and has acute acute hyperglycemia. Will resume patient's home Lantus and will add high-dose sliding scale at [facility] with Accu-Cheks a.c. HS Diabetic diet Hypoglycemia protocol has been ordered as needed. A1c at 10.1 Sliding scale at discharge # History of PE Continue Eliquis 2.5 mg b.i.d. p.o. # Sacral decubital ulcer Consult Wound Care # MALIA Patient does have history of obstructive sleep apnea and obesity hypoventilation syndrome. Patient on CPAP/BiPAP at night. # DVT prophylaxis on Eliquis Time Spent with Patient Time attestation: Total time spent providing and/or coordinating discharge services: 40 minutes Exam Narrative: GENERAL: Pleasant, in no acute distress. Morbid obesity - EYES: EOMI. Anicteric. - HENT: Moist mucous membranes. - LUNGS: Clear to auscultation bilateral ly, no wheezing, rhonchi, or rales. - CARDIOVASCULAR: Regular rate and rhyth m. No murmur. No JVD. - ABDOMEN: Soft, non-tender and non-dist ended. No palpable masses. - EXTREMITIES: No edema. Peripheral puls es 2+. Non-tender. - NEUROLOGIC: No focal neurological defi cits. CN II-XII grossly intact. - PSYCHIATRIC: Awake, Alert and oriented x 3. Appropriate mood and affect. - SKIN: Sacral deep good ulcer - LYMPH: No cervical lymphadenopathy. DS: Data Data Completed and Pending Labs on day of discharge: Labs from last 24 hours 02/05/24 02/05/24 02/04/24 08:38 07:54 21:02 WBC 4.7 RBC 3.37 L Hgb 10.6 L Hct 33.8 L MCV 100.3 H MCH 31.5 MCHC 31.4 L RDW 15.5 H Plt Count 136 L MPV 10.8 H Immature Gran % (Auto) 0.8 H Neut % (Auto) 60.4 Lymph % (Auto) 26.1 [place] % (Auto) 8.7 H Eos % (Auto) 3.4 Baso % (Auto) 0.6 Lymph # (Auto) 1.23 [place] # (Auto) 0.4 Eos # (Auto) 0.2 Baso # (Auto) 0.0 Abs Immat Gran (auto) 0.04 H Absolute Neuts (auto) 2.8 Absolute Nucleated RBC 0.000 Nucleated RBC % 0.0 Sodium 141 Potassium 4.1 Chloride 107 Carbon Dioxide 29 Anion Gap 5 BUN 35 H Creatinine 1.50 H Estim Creat Clear Calc 47 Estimated GFR 34 L Glucose 205 H POC Capillary Glucose 206 H 257 H Calcium 9.0 Magnesium 2.3 Total Bilirubin 0.4 AST 52 H ALT 51 H Alkaline Phosphatase 124 Total Protein 7.0 Albumin 3.2 L 02/04/24 02/04/24 16:44 11:58 WBC RBC Hgb Hct MCV MCH MCHC RDW Plt Count MPV Immature Gran % (Auto) Neut % (Auto) Lymph % (Auto) [place] % (Auto) Eos % (Auto) Baso % (Auto) Lymph # (Auto) [place] # (Auto) Eos # (Auto) Baso # (Auto) Abs Immat Gran (auto) Absolute Neuts (auto) Absolute Nucleated RBC Nucleated RBC % Sodium Potassium Chloride Carbon Dioxide Anion Gap BUN Creatinine Estim Creat Clear Calc Estimated GFR Glucose POC Capillary Glucose 267 H 319 H Calcium Magnesium Total Bilirubin AST ALT Alkaline Phosphatase Total Protein Albumin Preliminary micro results at discharge 02/01/24 21:57 Blood Culture - Preliminary Blood 02/01/24 23:09 Blood Culture - Preliminary Blood Imaging Radiologist's impression: ITS Impressions Head CT 02/01/24 20:07 Impression: No acute intracranial hemorrhage or suspicious mass effect. Stable meningioma within the left cerebellopontine angle, as detailed above. Renal Ultrasound 02/02/24 16:39 IMPRESSION: 1. Normal kidney sizes. No hydronephrosis. Discharge Plan Discharge Attending physician on discharge: Andrea Strong Discharging Clinician: Andrea Strong Anticipated Discharge Date/Time: 02/05/24 11:44 Patient Disposition: Home Health Service Activity: as tolerated Diet: diabetic Discharge Instructions: Per Care Coordination, patient to discharge with [facility] ([phone]) for PT/OT and snf services. Please fax discharge instructions and medication sheets to [phone]. Accu-Cheks AC and HS Vigil catheter changed every month Wound care to her sacral decubitus ulcer as previously ordered. Patient Instructions: Antibiotic Form, Urinary Tract Infection in Women (GEN), Sepsis (GEN) Stand Alone Forms: General Discharge Information Follow-up/Referrals: Carol Staples MD [Primary Care Provider] - 1 Week Discharge Medications: New insulin aspart U-100 [Novolog U-100 Insulin aspart] 100 unit/mL Solution 4 - 8 unit subcut TIDWM Qty: 10 0RF Protocol: Insulin Corrective High-Dose Condition: glucose < 70 mg/dl Dose/Route: Follow hypoglycemia order Condition: glucose 70-200 mg/dl Dose/Route: No additional insulin Condition: glucose 201-250 mg/dl Dose/Route: 4 units sub-Q Condition: glucose 251-300 mg/dl Dose/Route: 5 units sub-Q Condition: glucose 301-350 mg/dl Dose/Route: 6 units sub-Q Condition: glucose 351-400 mg/dl Dose/Route: 8 units sub-Q Condition: glucose > 400 mg/dl Dose/Route: Call MD Protocol Text: *No Correction Dose at Bedtime* cefdinir 300 mg capsule 300 mg PO Q12H Qty: 10 0RF Continued acetaminophen [Tylenol Extra Strength] 500 mg tablet 1,000 mg PO BID lidocaine [Lidoderm] 5 % adhesive patch,medicated 1 patch topical DAILY Qty: 30 3RF Rx Instructions: leave on most painful area for up to 12 hrs aspirin 81 mg tablet,delayed release (DR/EC) 81 mg PO BID clotrimazole-betamethasone 1-0.05 % Cream 1 applic TOPICAL BID Rx Instructions: APPLY TO BUTTOCKS Clear Fiber 3 gram/4 gram Powder 2 tsp PO TID PRN (Reason: Constipation) clonidine HCl 0.1 mg tablet 0.2 mg PO HS Adults Multivitamin 18 mg iron-400 mcg-25 mcg Tablet 1 tablet PO DAILY furosemide 40 mg tablet 40 mg PO DAILY benztropine 0.5 mg tablet 0.5 mg PO TID atorvastatin 10 mg tablet 10 mg PO DAILY duloxetine 30 mg capsule,delayed release(DR/EC) 30 mg PO BID lactulose 10 gram/15 mL solution 15 ml PO BID PRN (Reason: Constipation) metoprolol tartrate 50 mg tablet 50 mg PO DAILY pregabalin 100 mg capsule 100 mg PO DAILY insulin glargine [Basaglar KwikPen U-100 Insulin] 100 unit/mL (3 mL) insulin pen 40 unit subcut DAILY Eliquis 2.5 mg tablet 2.5 mg PO BID Namzaric 28-10 mg capsule,sprinkle,ER 24hr 1 cap PO DAILY cholecalciferol (vitamin D3) 1,250 mcg (50,000 unit) tablet 1,250 mcg PO WEEKLY Qty: 12 3RF Rx Instructions: every tuesday quetiapine 200 mg tablet 100 mg PO BID Qty: 180 0RF Trulicity 3 mg/0.5 mL pen injector 3 mg subcut WEEKLY Qty: 2 3RF Rx Instructions: FRIDAYS tramadol 50 mg tablet 50 mg PO TID PRN (Reason: pain) Qty: 60 0RF Date of admission: 02/03/24 10:26 Primary Care Provider: Carol Staples Admitting Provider: Ophelia Pacheco Attending physician on admission: Ophelia Pacheco Condition: Stable
[2024-02-05 11:46] LABS: Glucose Point of Care 181 mg/dl (65-105)
== END 2024-02-05 14:10 | disposition home health service (06) | DRG 698 ==
LOC: ANHED 17:36 → ANHIMU 21:40 → ANH2MED 02-03 00:20
PROVIDERS: Emergency Medicine; Admitting Provider Internal Medicine; Emergency Provider Emergency Medicine; PCP Family Medicine; Visit Provider Internal Medicine
DX: T83.511A Infection and inflammatory reaction due to indwelling urethral catheter, initial encounter (principal); G93.41 Metabolic encephalopathy; N17.9 Acute kidney failure, unspecified; F03.918 Unspecified dementia, unspecified severity, with other behavioral disturbance; F32.3 Major depressive disorder, single episode, severe with psychotic features; Z68.41 Body mass index [BMI] 40.0-44.9, adult; I12.9 Hypertensive chronic kidney disease with stage 1 through stage 4 chronic kidney disease, or unspecified chronic kidney disease; N18.30 Chronic kidney disease, stage 3 unspecified; I87.2 Venous insufficiency (chronic) (peripheral); J44.9 Chronic obstructive pulmonary disease, unspecified; E11.65 Type 2 diabetes mellitus with hyperglycemia; E11.21 Type 2 diabetes mellitus with diabetic nephropathy; E11.22 Type 2 diabetes mellitus with diabetic chronic kidney disease; E11.43 Type 2 diabetes mellitus with diabetic autonomic (poly)neuropathy; K31.84 Gastroparesis; E01.8 Other iodine-deficiency related thyroid disorders and allied conditions; E78.2 Mixed hyperlipidemia; E66.01 Morbid (severe) obesity due to excess calories; E55.9 Vitamin D deficiency, unspecified; L89.309 Pressure ulcer of unspecified buttock, unspecified stage; N31.9 Neuromuscular dysfunction of bladder, unspecified; R27.8 Other lack of coordination; G25.71 Drug induced akathisia; G24.01 Drug induced subacute dyskinesia; T43.505A Adverse effect of unspecified antipsychotics and neuroleptics, initial encounter; M10.9 Gout, unspecified; G89.4 Chronic pain syndrome; G47.33 Obstructive sleep apnea (adult) (pediatric); F51.04 Psychophysiologic insomnia; F41.1 Generalized anxiety disorder; Z79.82 Long term (current) use of aspirin; Z79.01 Long term (current) use of anticoagulants; Z79.4 Long term (current) use of insulin; Z79.899 Other long term (current) drug therapy; Z86.711 Personal history of pulmonary embolism
CPT/HCPCS: 36415; 70450; 76775; 80048; 80053; 81001; 82948; 83036; 83735; 85025; 85610; 85730; 87040; 87086; 87186; 93005; 96365; 96375; 99212; 99285; A9270; G0378; G0463; J0696; J1815; J2270; J7030

== ENCOUNTER 2024-03-06 17:43 | Emergency (ER) | payer MEDICARE, OTHER, SELFPAY ==
[2024-03-06 18:12] VITALS: BP 145/54; PULSE 91; RESP 14; TEMP 37.2; O2SAT 94
[2024-03-06 20:07] VITALS: BP 128/57; PULSE 81; RESP 16; TEMP 36.1; O2SAT 96
[2024-03-06 22:13] LABS: Add Urine Microscopic? YES; Appearance Urine Clear (Clear); Bacteria Urine None Seen /hpf; Bilirubin Urine Negative (Negative); Blood Urine Negative (Negative); Budding Yeast Urine Present /hpf; Color Urine Yellow (Yellow); Glucose Urine UA 3+ mg/dL (Negative); Ketones Urine Negative (Negative); Leukocyte Esterase Ur 2+ LEU/UL (Negative); Need Manual Microscopic Reviewed; Nitrate Urine Negative (Negative); Non Pathogenic Casts 0-2; Protein Urine Negative (Negative); RBC Urine 0-2 /hpf (0-2); Specific Grav Ur 1.013 (1.001-1.035); Squamous Epithelial Cell Urine None Seen /hpf (Few); Urobilinogen Urine 0.2 mg/dL (<2.0); WBC Urine 51-100 /hpf (0-3); pH Urine 5.5 (5.0-9.0)
[2024-03-06 22:17] VITALS: BP 150/66; PULSE 68; RESP 16; O2SAT 97
--- NOTE | 2024-03-06 23:13 | ED_ITS ---
HPI - General Adult General Chief complaint: Urogenital-Female Stated complaint: bladder spasms, haven't produced urine in villa 1d Time Seen by Provider: 03/06/24 21:12 History of Present Illness HPI narrative: Patient is a 68-year-old female who presents emergency department with chief complaint of bladder spasms and no urine production from her catheter patient does report that she has had leakage of urine from around the catheter. The patient denies fever does report that she has had UTIs in the past. Related Data Home Medications ?Medication ?Instructions ?Recorded ?Confirmed ?Last Taken ?Type acetaminophen 500 mg tablet 1,000 mg PO BID Pain 07/10/20 02/02/24 05/18/23 07:00 History (Tylenol Extra Strength) multivit with minerals-iron 18 1 tablet PO DAILY 03/06/21 02/02/24 05/18/23 07:00 History mg-folic ac 400 mcg-vit K 25 mcg tablet (Adults Multivitamin) aspirin 81 mg tablet,delayed 81 mg PO BID 10/30/21 02/02/24 05/18/23 07:00 History release clonidine HCl 0.1 mg tablet 0.2 mg PO HS 05/18/23 02/02/24 05/18/23 07:00 History clotrimazole-betamethasone 1 1 applic topical BID 05/18/23 02/02/24 05/18/23 07:00 History %-0.05 % topical cream dextrin 3 gram/4 gram oral powder 2 tsp PO TID PRN Constipation 05/18/23 02/02/24 05/18/23 07:00 History (Clear Fiber) apixaban 2.5 mg tablet (Eliquis) 2.5 mg PO BID 02/02/24 02/02/24 Unknown History atorvastatin 10 mg tablet 10 mg PO DAILY 02/02/24 02/02/24 Unknown History benztropine 0.5 mg tablet 0.5 mg PO TID 02/02/24 02/02/24 Unknown History duloxetine 30 mg capsule,delayed 30 mg PO BID 02/02/24 02/02/24 Unknown History release lactulose 10 gram/15 mL oral 15 ml PO BID PRN Constipation 02/02/24 02/02/24 Unknown History solution memantine ER 28 mg-donepezil 10 mg 1 cap PO DAILY 02/02/24 02/02/24 Unknown History capsule sprinkle,ext.release 24 hr (Namzaric) metoprolol tartrate 50 mg tablet 50 mg PO DAILY 02/02/24 02/02/24 Unknown History pregabalin 100 mg capsule 100 mg PO DAILY 02/02/24 02/02/24 Unknown History ferrous sulfate 325 mg (65 mg 325 mg PO BID 02/14/24 Unknown History iron) tablet lactobacillus combination no.9 PO 02/14/24 Unknown History [Adult 50 Plus Probiotic] nystatin 100,000 unit/gram topical 1 applic topical BID 02/14/24 Unknown History cream Allergies Allergy/AdvReac Type Severity Reaction Status Date / Time ciprofloxacin Allergy Mild Hives Verified 03/06/24 17:45 metronidazole Allergy Mild Hives Verified 03/06/24 17:45 divalproex sodium Allergy Unknown Unknown Verified 03/06/24 17:45 vancomycin Allergy Unknown Unknown Verified 03/06/24 17:45 Review of Systems Review of Systems: A 10 system review of systems was completed on the patient and is negative except for what is stated in the HPI. Nursing and ancillary documentation was reviewed. [facility] Past Medical History Medical History Left shoulder pain Diabetic gastroparesis Chronic indwelling Villa catheter Due to neurogenic bladder Asterixis Dementia with behavioral disturbance Venous insufficiency (chronic) (peripheral) Morbid obesity with BMI of 40.0-44.9, adult RAMAN (generalized anxiety disorder) Vitamin D deficiency, unspecified Type 2 diabetes mellitus with stage 3 chronic kidney disease Type 2 diabetes mellitus with diabetic neuropathy, with long-term current use of insulin Severe recurrent major depressive disorder with psychotic features Post-menopausal Polypharmacy Mixed hyperlipidemia Iodine hypothyroidism Gout Dyskinesia, tardive Diabetic nephropathy associated with type 2 diabetes mellitus Depressive type psychosis Chronic pain disorder Chronic kidney disease, stage III (moderate) Body mass index [BMI] 39.0-39.9, adult (11/12/16) Benzodiazepine abuse, continuous Anxiety Antipsychotic-induced akathisia Postmenopausal Pulmonary embolism 2020 Abnormality of gait and mobility MALIA on CPAP Chronic kidney disease due to diabetes mellitus Benign essential hypertension Brain hypoxia Chronic obstructive pulmonary disease Psychophysiological insomnia Surgical History Surgical History Previous back surgery Family History Family History Father Diabetes mellitus Hypertension Patient's father is , Onset Age: 75 Family history of renal failure Heart disease Cancer Mother Family history of malignant neoplasm of stomach Hypertension Cancer Thyroid disorder Sibling Depression Other Family history of arthritis Social History Social History Social History: She lives at home with her . Her daughters, and help at night. She has home caregivers that, for 8 hours each day. Patient reports that she ambulates with a walker. Code status: Full code (per EMR) Surrogate decision maker: Serjio () Smoking status: Never smoker Second hand tobacco smoke exposure: No Alcohol intake: never Substance use: never Substance use type: marijuana Other substance usage details: hx of marijuana use 2022 Do You Feel Safe in your Home?: Yes Lack of Transportation: No Lack of Food: Never True Current Housing: I Have Housing Concerned About Future Housing: No Difficulty Paying Gas/Electric Bills: No Difficulty Paying for Meds: No Currently Unemployed: No Education: Don't Know Difficulty w/ Childcare or Family Care: No Living arrangements: with family Occupation/Education: retired Gender identity (if verbalized by the patient): Female Sexual Orientation (if Verbalized by the Patient): Straight or Heterosexual Spiritual care concerns: No Exam Narrative: GENERAL: Well-appearing, well-nourished, and in no acute distress. HEAD: Normocephalic, atraumatic. EYES: PERRLA and EOMI. ENT: Nares clear, no rhinorrhea or epistaxis. Mucous membranes moist. NECK: Supple. CHEST: Clear to auscultation. No respiratory distress. HEART: Regular rate and rhythm. No murmur heard. Normal peripheral pulses. ABDOMEN: Soft, nontender, nondistended, normal active bowel sounds. EXTREMITIES: Normal range of motion. No edema. SKIN: Warm, dry, no rash. NEURO: No focal deficits. Alert and oriented x3. PSYCH: Normal mood and affect. Course Vital Signs Vital signs: Vital Signs Temperature 37.2 C 03/06/24 18:12 Pulse Rate 91 03/06/24 18:12 Respiratory Rate 14 03/06/24 18:12 Blood Pressure 145/54 H 03/06/24 18:12 Pulse Oximetry 94 03/06/24 18:12 Temperature 36.1 C L 03/06/24 20:07 Pulse Rate 68 03/06/24 22:17 Respiratory Rate 16 03/06/24 22:17 Blood Pressure 150/66 H 03/06/24 22:17 Pulse Oximetry 97 03/06/24 22:17 Medical Decision Making MDM Narrative Medical decision making narrative: Differential includes Villa catheter malfunction, UTI Urinalysis showed evidence of 51-100 white blood cells and 2+ leukocyte esterase. A urine culture has been sent The Villa catheter only had 10 mL in the balloon and was replaced and the patient has good urine flow and is feeling much better Vital Signs Vital Signs: Vital Signs Temperature 37.2 C 03/06/24 18:12 Pulse Rate 91 03/06/24 18:12 Respiratory Rate 14 03/06/24 18:12 Blood Pressure 145/54 H 03/06/24 18:12 Pulse Oximetry 94 03/06/24 18:12 Temperature 36.1 C L 03/06/24 20:07 Pulse Rate 68 03/06/24 22:17 Respiratory Rate 16 03/06/24 22:17 Blood Pressure 150/66 H 03/06/24 22:17 Pulse Oximetry 97 03/06/24 22:17 Lab Data Labs: Lab Results 03/06/24 Range/Units 21:39 Urine Color Yellow (Yellow) Urine Appearance Clear (Clear) Urine pH 5.5 (5.0-9.0) Ur Specific [place] 1.013 (1.001-1.035) Urine Protein Negative (Negative) mg/dL Urine Glucose (UA) 3+ H (Negative) mg/dL Urine Ketones Negative (Negative) mg/dL Ur Blood (Man) Negative (Negative) Urine Nitrate Negative (Negative) Urine Bilirubin Negative (Negative) Urine Urobilinogen 0.2 (<2.0) mg/dL Add Ur Microanalysis Reviewed Leukocyte Esterase Rfl 2+ H (Negative) ARTURO/UL Urine RBC 0-2 (0-2) /hpf Urine WBC 51-100 H (0-3) /hpf Ur Squamous Epith Cells None seen (Few) /hpf Urine Bacteria None seen /hpf Urine Casts 0-2 Urine Yeast (Budding) Present H (None) /hpf Discharge Plan Discharge Clinical Impression: Complication of Villa catheter, Acute UTI Patient Disposition: Home, Self-Care Condition: Stable Instructions: Antibiotic Form, Urinary Tract Infection in Women (ED), Villa Catheter Placement and Care (ED) Patient Language: Khmer Prescriptions: New cephalexin 500 mg capsule 500 mg PO Q12H 7 Days Qty: 14 0RF No Action acetaminophen [Tylenol Extra Strength] 500 mg tablet 1,000 mg PO BID lidocaine [Lidoderm] 5 % adhesive patch,medicated 1 patch topical DAILY Qty: 30 3RF Rx Instructions: leave on most painful area for up to 12 hrs ferrous sulfate 325 mg (65 mg iron) tablet 325 mg PO BID nystatin 100,000 unit/gram cream 1 applic topical BID lactobacillus combination no.9 [Adult 50 Plus Probiotic] PO aspirin 81 mg tablet,delayed release (DR/EC) 81 mg PO BID clotrimazole-betamethasone 1-0.05 % Cream 1 applic TOPICAL BID Rx Instructions: APPLY TO BUTTOCKS Clear Fiber 3 gram/4 gram Powder 2 tsp PO TID PRN (Reason: Constipation) clonidine HCl 0.1 mg tablet 0.2 mg PO HS Adults Multivitamin 18 mg iron-400 mcg-25 mcg Tablet 1 tablet PO DAILY benztropine 0.5 mg tablet 0.5 mg PO TID atorvastatin 10 mg tablet 10 mg PO DAILY duloxetine 30 mg capsule,delayed release(DR/EC) 30 mg PO BID lactulose 10 gram/15 mL solution 15 ml PO BID PRN (Reason: Constipation) metoprolol tartrate 50 mg tablet 50 mg PO DAILY pregabalin 100 mg capsule 100 mg PO DAILY Eliquis 2.5 mg tablet 2.5 mg PO BID Namzaric 28-10 mg capsule,sprinkle,ER 24hr 1 cap PO DAILY insulin aspart U-100 [Novolog U-100 Insulin aspart] 100 unit/mL Solution 4 - 8 unit subcut TIDWM Qty: 10 0RF Protocol: Insulin Corrective High-Dose Condition: glucose < 70 mg/dl Dose/Route: Follow hypoglycemia order Condition: glucose 70-200 mg/dl Dose/Route: No additional insulin Condition: glucose 201-250 mg/dl Dose/Route: 4 units sub-Q Condition: glucose 251-300 mg/dl Dose/Route: 5 units sub-Q Condition: glucose 301-350 mg/dl Dose/Route: 6 units sub-Q Condition: glucose 351-400 mg/dl Dose/Route: 8 units sub-Q Condition: glucose > 400 mg/dl Dose/Route: Call MD Protocol Text: *No Correction Dose at Bedtime* cholecalciferol (vitamin D3) 1,250 mcg (50,000 unit) tablet 1,250 mcg PO WEEKLY Qty: 12 3RF Rx Instructions: every tuesday quetiapine 200 mg tablet 100 mg PO BID Qty: 180 0RF Trulicity 3 mg/0.5 mL pen injector 3 mg subcut WEEKLY Qty: 2 3RF Rx Instructions: FRIDAYS insulin glargine [Basaglar KwikPen U-100 Insulin] 100 unit/mL (3 mL) insulin pen 40 unit subcut BID 90 Days Qty: 72 0RF furosemide 40 mg tablet See Rx Instructions .ROUTE .COMPLEX Qty: 90 0RF Dose Instruction: TAKE 1 TABLET BY MOUTH EVERY MORNING Rx Instructions: TAKE 1 TABLET BY MOUTH EVERY MORNING tramadol 50 mg tablet 50 mg PO TID PRN (Reason: pain) Qty: 60 0RF Follow-up/Referrals: Carol Staples MD [Primary Care Provider] - Time of Disposition: 23:20
[2024-03-06] MEDS: CEPHALEXIN 500 MG CAPSULE PO (23:54)
[2024-03-07 00:04] VITALS: BP 142/73; PULSE 73; RESP 14; O2SAT 98
== END 2024-03-07 00:07 | disposition home or self-care (01) ==
PROVIDERS: Emergency Provider Emergency Medicine; PCP Family Medicine
DX: N39.0 Urinary tract infection, site not specified (principal); T83.031A Leakage of indwelling urethral catheter, initial encounter; E11.43 Type 2 diabetes mellitus with diabetic autonomic (poly)neuropathy; K31.84 Gastroparesis; E11.22 Type 2 diabetes mellitus with diabetic chronic kidney disease; I12.9 Hypertensive chronic kidney disease with stage 1 through stage 4 chronic kidney disease, or unspecified chronic kidney disease; N18.30 Chronic kidney disease, stage 3 unspecified; E11.40 Type 2 diabetes mellitus with diabetic neuropathy, unspecified; E11.21 Type 2 diabetes mellitus with diabetic nephropathy; E66.01 Morbid (severe) obesity due to excess calories; E55.9 Vitamin D deficiency, unspecified; E78.2 Mixed hyperlipidemia; E01.8 Other iodine-deficiency related thyroid disorders and allied conditions; J44.9 Chronic obstructive pulmonary disease, unspecified; I87.2 Venous insufficiency (chronic) (peripheral); M10.9 Gout, unspecified; G24.01 Drug induced subacute dyskinesia; G89.29 Other chronic pain; G47.33 Obstructive sleep apnea (adult) (pediatric); F03.918 Unspecified dementia, unspecified severity, with other behavioral disturbance; F41.1 Generalized anxiety disorder; F33.3 Major depressive disorder, recurrent, severe with psychotic symptoms; F51.04 Psychophysiologic insomnia; Z86.711 Personal history of pulmonary embolism; Z79.01 Long term (current) use of anticoagulants; Z79.899 Other long term (current) drug therapy; Z79.82 Long term (current) use of aspirin; Y84.6 Urinary catheterization as the cause of abnormal reaction of the patient, or of later complication, without mention of misadventure at the time of the procedure
CPT/HCPCS: 51702; 81001; 87086; 99283; A9270

== ENCOUNTER 2024-03-23 12:18 | Inpatient (IN) | payer MEDICARE, OTHER, SELFPAY ==
[2024-03-23] VITALS (24 sets, daily range): BP systolic 102–189; BP diastolic 62–87; PULSE 86–119; RESP 13–28; TEMP 36.2–36.8; O2SAT 65–100; BMI 46.0
--- NOTE | ~2024-03-23 | XR_ITS ---
EXAMINATION: XR chest 1V portable DATE: 03/23/2024 14:52 INDICATION: Pneumonia TECHNIQUE: frontal view of the chest was obtained. COMPARISON: Chest radiograph dated 09/15/2023 FINDINGS: Mild streaky atelectasis at the left costophrenic angle and at the lateral right midlung zone. No oth er airspace opacities, pulmonary edema, pleural effusion or pneumothorax. Cardiomediastinal silhouett e is normal. Partially visualized likely fixation screws at the right humeral head. IMPRESSION: 1. Mild streaky atelectasis at the right mid and left lower lung zones. No other acute cardiopulmonar y disease. Reviewed, dictated and finalized at location B. CLE REPAIRMAN IMPRESSION: 1. Mild streaky atelectasis at the right mid and left lower lung zones. No othe r acute cardiopulmonary disease.
--- NOTE | ~2024-03-23 | US_ITS ---
BILATERAL LOWER EXTREMITY VENOUS ULTRASOUND Ordering provider: Pooja Hernandez History: . Bilateral lower extremity edema . Comparison: None. FINDINGS: RIGHT LOWER EXTREMITY VEINS: --COMMON FEMORAL: Patent and free of thrombus. Normal compressibility, phasic flow and augmentation. --PROXIMAL SUPERFICIAL FEMORAL: Patent and free of thrombus. Normal compressibility, phasic flow and augmentation. --DISTAL SUPERFICIAL FEMORAL: Patent and free of thrombus. Normal compressibility, phasic flow and au gmentation. --POPLITEAL: Patent and free of thrombus. Normal compressibility, phasic flow and augmentation. --POSTERIOR TIBIAL: Patent and free of thrombus. Normal compressibility, phasic flow and augmentation . LEFT LOWER EXTREMITY VEINS: --COMMON FEMORAL: Patent and free of thrombus. Normal compressibility, phasic flow and augmentation. --PROXIMAL SUPERFICIAL FEMORAL: Patent and free of thrombus. Normal compressibility, phasic flow and augmentation. --DISTAL SUPERFICIAL FEMORAL: Patent and free of thrombus. Normal compressibility, phasic flow and au gmentation. --POPLITEAL: Patent and free of thrombus. Normal compressibility, phasic flow and augmentation. --POSTERIOR TIBIAL: Patent and free of thrombus. Normal compressibility, phasic flow and augmentation . IMPRESSION: Negative bilateral lower extremity venous US. No deep vein thrombosis. Reviewed, dictated and finalized at location A. GENCY CARE ATTENDANT
--- NOTE | ~2024-03-23 | CT_ITS ---
EXAMINATION: CT brain wo con DATE: 03/23/2024 16:32 INDICATION: Altered mental status TECHNIQUE: Computed tomography (CT) of the head was performed without intravenous contrast. Sagittal and coronal reconstructions were performed. The mA was adjusted according to patient size. Iterative reconstruction technique was employed. The dose-length product was 681.00 mGy-cm. COMPARISON: head CT dated 10/01/2023 FINDINGS: No acute intracranial hemorrhage, acute infarction or abnormal extra axial fluid collection. There is mild scattered white matter hypoattenuation consistent with chronic small vessel ischemic disease. Ventricles are normal and symmetric. No significant interval change in a chronic 1.8 x 1.8 x 0.8 cm d ural based mass consistent with meningioma along the left cerebral pontine angle along the posterior margin angle abutting the posterior margin of the petrous portion of the right temporal bone.No new m asses or abnormal mass effect identified. Changes of bilateral intraocular lens replacement. The orbi ts and mastoid air cells are normal. Prominent mucosal thickening/mucous retention cyst in the bull driver ior left sphenoid sinus. Bilateral hyperostosis frontalis. IMPRESSION: 1. No acute intracranial process. 2. Stable 1.8 cm extra-axial meningioma at the left cerebral pontine angle. 3. Mild scattered white matter hypoattenuation consistent with chronic small vessel ischemic disease. Reviewed, dictated and finalized at location B. TECH LEAD IMPRESSION: 1. No acute intracranial process. 2. Stable 1.8 cm extra-axial meningioma at the left cerebral pontine angle. 3. Mild scattered white matter hypoattenuation consistent with chronic small ve ssel ischemic disease.
--- NOTE | 2024-03-23 13:32 | ECG_ITS ---
Test Date: 2024-03-23 13:56:00 Measurements Intervals [place] Rate: 87 P: 35 PA: 178 QRS: -28 QRSD: 105 T: 14 QT: 357 QTc: 432 Interpretive Statements SINUS RHYTHM BORDERLINE LEFT AXIS DEVIATION [QRS AXIS < -20] Compared to ECG 02/01/2024 16:27:44 Sinus tachycardia no longer present Ventricular premature complex(es) no longer present Intraventricular conduction delay no longer present Electronically Signed On 03-26-2024 15:05:39 BOW STAPLER by Jett Levine M.D.
[2024-03-23 14:04] LABS: Glucose Point of Care 342 mg/dl (65-105)
[2024-03-23 14:19] LABS: Fractional Inspired Oxygen 28 %; HCO3 VBG 29.5 mEq/l (24.0-30.0); PCO2 VBG 42.8 mmHg (42.0-48.0); PO2 VBG 45.3 mmHg (35.0-45.0)
[2024-03-23 14:20] LABS: Device NASAL CANNULA; pH VBG 7.456 (7.300-7.400)
[2024-03-23 14:21] LABS: Basophils Absolute Auto 0.1 K/mm3 (0.0-0.1); Eosinophils Absolute Auto 0.2 K/mm3 (0-0.3); Eosinophils Percent Auto 2.7 % (0-4.4); Hematocrit 40.7 % (37.0-47.0); Hemoglobin 12.8 g/dL (12.0-15.0); Immature Granulocyte Absolute 0.25 K/mm3 (0.00-0.031); Immature Granulocyte Percent A 3.1 % (0-0.5); Lymphocytes Absolute Auto 1.38 K/mm3 (0.9-3.2); Lymphocytes Percent Auto 16.8 % (18.3-44.2); Mean Corpuscular HGB Conc 31.4 g/dl (32-36); Mean Corpuscular Hemoglobin 31.6 pg (26-34); Mean Corpuscular Volume 100.5 fl (80-100); Mean Platelet Volume 11.2 fl (7.4-10.4); Monocytes Absolute Auto 0.7 K/mm3 (0.1-0.6); Monocytes Percent Auto 7.9 % (2.6-8.5); Neutrophils Absolute Auto 5.6 K/mm3 (1.3-6.7); Neutrophils Percent Auto 68.5 % (45.5-73.1); Nucleated Red Blood Cells Perc 0.5 % (0.0-0.2); Platelet Count Result 223 k/mm3 (150-375); Red Blood Count 4.05 M/mm3 (4.2-5.4); White Blood Count 8.2 K/mm3 (4.5-10.0)
[2024-03-23 14:28] LABS: INR 1.2; Partial Thromboplastin Time 30.5 Seconds (22.3-36.8); Prothrombin Time 15.8 Seconds (11.1-14.7)
[2024-03-23] MEDS: LACTATED RINGERS 1,000 ML 999 ML IV CONT ×2 (14:35→14:36)
--- NOTE | 2024-03-23 14:37 | PC.NURSE ---
pt says she has a bladder, was diagnosed with that around a year ago, which is why she has a catheter
[2024-03-23 14:49] LABS: Influenza A QL RT-PCR Negative (Negative); Influenza B QL RT-PCR Negative (Negative); RSV RNA, RT-PCR Negative (Negative); SARS-CoV-2 RNA PCR Negative (Negative)
[2024-03-23 15:01] LABS: Add Urine Microscopic? YES; Appearance Urine Cloudy (Clear); Bacteria Urine 2+ /hpf; Bilirubin Urine Negative (Negative); Blood Urine Trace (Negative); Color Urine Yellow (Yellow); Glucose Urine UA 3+ mg/dL (Negative); Ketones Urine Negative (Negative); Leukocyte Esterase Ur 3+ LEU/UL (Negative); Need Manual Microscopic Reviewed; Nitrate Urine Negative (Negative); Protein Urine Negative (Negative); RBC Urine 0-2 /hpf (0-2); Specific Grav Ur 1.015 (1.001-1.035); Squamous Epithelial Cell Urine None Seen /hpf (Few); Urobilinogen Urine 0.2 mg/dL (<2.0); WBC Urine >100 /hpf (0-3); pH Urine 5.5 (5.0-9.0)
--- NOTE | 2024-03-23 15:01 | ED.AMS ---
HPI - Altered Mental Status General Chief Complaint: Altered Mental Status Stated Complaint: AMS Time Seen by Provider: 03/23/24 13:25 History of Present Illness HPI narrative: 68-year-old female with a past medical history of diabetes, peripheral neuropathy, CKD, hypertension, chronic pain disorder, hypothyroidism, obstructive sleep apnea on CPAP. She also has a history of urinary retention with indwelling catheter. patient presents to the emergency department today for concerns of shortness of breath, nonproductive cough for several weeks, transient mental status changes, uncontrolled diabetes. She presents with her family member provides collateral formation. Patient herself states that she has been having no appetite, malaise, fatigue, bilateral headache, bilateral ear pain, nonproductive cough with difficulty in breathing. Patient was seen by her primary care provider this morning and referred to the emergency department for evaluation. patient was recently treated for urinary tract infection incomplete course of Keflex. no nauseousness, diarrhea, fever, vision changes, abdominal pain. Related Data Home Medications ?Medication ?Instructions ?Recorded ?Confirmed ?Last Taken ?Type acetaminophen 500 mg tablet 1,000 mg PO BID Pain 07/10/20 03/23/24 05/18/23 07:00 History (Tylenol Extra Strength) multivit with minerals-iron 18 1 tablet PO DAILY 03/06/21 03/23/24 05/18/23 07:00 History mg-folic ac 400 mcg-vit K 25 mcg tablet (Adults Multivitamin) aspirin 81 mg tablet,delayed 81 mg PO BID 10/30/21 03/23/24 05/18/23 07:00 History release clotrimazole-betamethasone 1 1 applic topical BID 05/18/23 03/23/24 05/18/23 07:00 History %-0.05 % topical cream dextrin 3 gram/4 gram oral powder 2 tsp PO TID PRN Constipation 05/18/23 03/23/24 05/18/23 07:00 History (Clear Fiber) atorvastatin 10 mg tablet 10 mg PO DAILY 02/02/24 03/23/24 Unknown History benztropine 0.5 mg tablet 0.5 mg PO TID 02/02/24 03/23/24 Unknown History duloxetine 30 mg capsule,delayed 30 mg PO HS 02/02/24 03/23/24 Unknown History release lactulose 10 gram/15 mL oral 15 ml PO BID PRN Constipation 02/02/24 03/23/24 Unknown History solution metoprolol tartrate 50 mg tablet 50 mg PO Q12H 02/02/24 03/23/24 Unknown History ferrous sulfate 325 mg (65 mg 325 mg PO BID 02/14/24 03/23/24 Unknown History iron) tablet lactobacillus combination no.9 1 cap PO DAILY 02/14/24 03/23/24 Unknown History nystatin 100,000 unit/gram topical 1 applic topical BID 02/14/24 03/23/24 Unknown History cream insulin glargine 100 unit/mL (3 35 unit subcut BID 03/23/24 03/23/24 Unknown History mL) subcutaneous pen (Basaglar KwikPen U-100 Insulin) memantine ER 28 mg-donepezil 10 mg 1 cap PO HS 03/23/24 03/23/24 Unknown History capsule sprinkle,ext.release 24 hr (Namzaric) oxybutynin chloride 5 mg 5 mg PO DAILY PRN bladder spasms 03/23/24 03/23/24 Unknown History tablet,extended release 24 hr pregabalin 100 mg capsule 100 mg PO BID 03/23/24 03/23/24 Unknown History pregabalin 200 mg capsule 200 mg PO HS 03/23/24 03/23/24 Unknown History Allergies Allergy/AdvReac Type Severity Reaction Status Date / Time ciprofloxacin Allergy Mild Hives Verified 03/23/24 11:40 metronidazole Allergy Mild Hives Verified 03/23/24 11:40 divalproex sodium Allergy Unknown Unknown Verified 03/23/24 11:40 vancomycin Allergy Unknown Unknown Verified 03/23/24 11:40 Review of Systems Review of Systems: As reviewed above in [facility] Past Medical History Medical History (Updated 03/23/24 @ 21:48 by Walter Nobles MD) Hypothyroidism Mild cognitive impairment with memory loss Obstructive sleep apnea on CPAP Insulin dependent type 2 diabetes mellitus Chronic venous insufficiency Diabetic gastroparesis Chronic indwelling Vigil catheter Due to neurogenic bladder Dementia with behavioral disturbance Morbid obesity with BMI of 40.0-44.9, adult Vitamin D deficiency, unspecified Severe recurrent major depressive disorder with psychotic features Post-menopausal Polypharmacy Mixed hyperlipidemia Gout Dyskinesia, tardive Diabetic nephropathy associated with type 2 diabetes mellitus Depressive type psychosis Chronic pain disorder Chronic kidney disease, stage III (moderate) Body mass index [BMI] 39.0-39.9, adult (11/12/16) Benzodiazepine abuse, continuous Anxiety Antipsychotic-induced akathisia Pulmonary embolism (2020) Benign essential hypertension Brain hypoxia Chronic obstructive pulmonary disease Psychophysiological insomnia Surgical History Surgical History (Updated 03/23/24 @ 18:49 by Pooja Hernandez PA-C) History of section History of hysterectomy History of back surgery Family History Family History Father Diabetes mellitus Hypertension Patient's father is , Onset Age: 75 Family history of renal failure Heart disease Cancer Mother Family history of malignant neoplasm of stomach Hypertension Cancer Thyroid disorder Sibling Depression Other Family history of arthritis Social History Social History Social History: She lives at home with her . Her daughters, and help at night. She has home caregivers that, for 8 hours each day. Patient reports that she ambulates with a walker. Code status: Full code (per EMR) Surrogate decision maker: Serjio () Smoking status: Never smoker Second hand tobacco smoke exposure: No Alcohol intake: never Substance use: current Substance use type: marijuana Other substance usage details: hx of marijuana use 2022 Do You Feel Safe in your Home?: Yes Lack of Transportation: No Lack of Food: Never True Current Housing: I Have Housing Concerned About Future Housing: No Difficulty Paying Gas/Electric Bills: No Difficulty Paying for Meds: No Currently Unemployed: No Education: High School Diploma/GED Difficulty w/ Childcare or Family Care: No Living arrangements: with family Occupation/Education: retired Gender identity (if verbalized by the patient): Female Sexual Orientation (if Verbalized by the Patient): Straight or Heterosexual Spiritual care concerns: No Exam Narrative: GENERAL: [Well-appearing, well-nourished, and in no acute distress.] HEAD: [Normocephalic, atraumatic.] EYES: [PERRLA and EOMI.] ENT: Nares clear, no rhinorrhea or epistaxis. Mucous membranes dry. NECK: Supple. CHEST: coarse breath sounds, no respiratory distress or tachypnea, was hypoxic 87 room air requiring oxygen supplementation here in the emergency department. HEART: [Regular rate and rhythm]. No murmur heard. [Normal peripheral pulses.] ABDOMEN: protuberant but soft, [nontender], [No rigidity or guarding] indwelling catheter EXTREMITIES: Normal range of motion. [No edema.] SKIN: Warm, dry, no rash. NEURO: [No focal deficits]. Alert and oriented [x3.] PSYCH: [Normal mood and affect.] Course Vital Signs Vital signs: Vital Signs Temperature 36.2 C L 03/23/24 12:21 Pulse Rate 87 03/23/24 12:21 Respiratory Rate 20 03/23/24 12:21 Blood Pressure 141/69 H 03/23/24 12:21 Pulse Oximetry 87 L 03/23/24 12:21 Oxygen Delivery Room Air 03/23/24 12:21 Temperature 36.8 C 03/23/24 21:15 Pulse Rate 102 H 03/23/24 21:15 Respiratory Rate 16 03/23/24 21:15 Blood Pressure 154/79 H 03/23/24 21:15 Pulse Oximetry 100 03/23/24 21:15 Oxygen Delivery Nasal Cannula 03/23/24 13:53 Oxygen Flow Rate 2 03/23/24 13:53 MDM - Altered Mental Status MDM Narrative Medical decision making narrative: 68-year-old female with complex past medical history presenting to the emergency department for evaluation of respiratory concerns as well as generalized complaints of malaise, bilateral headache, lack of appetite, uncontrolled diabetes. She was seen by her primary care provider and referred to the ED this morning. She is not any acute distress but is hypoxic on triage vitals at a 7% on room air. She was placed on 2 L nasal cannula improved to 99%. She does have coarse breath sounds but no signs of respiratory distress. She is afebrile here. No tachycardia. Blood pressure slightly hypertensive but otherwise Non concerning. given her complaints of nonproductive cough for several weeks combined with hypoxia considerations for respiratory illness such as pneumonia, COVID flu influenza. she does have a complex past medical history including her diabetes that is apparently not being controlled well at home and could also be in respiratory distress from hyperglycemia that could be causing DKA. We will evaluate with VBG, beta hydroxybutyrate level, CBC, CMP, chest x-ray, EKG, pulse oximetry and monitor tech placement. Catheter was exchanged and urinalysis sent. She was provided 2 L of LR given her clinical dehydration. Workup shows no leukocytosis or anemia. Normal platelet count. Coagulation studies within normal limits. VBG shows no signs of acidosis. Normal pCO2 and bicarb. chemistry panel shows a BUN and creatinine that are slightly elevated but in line with her CKD levels. Glucose of 337, no signs of acidosis, negative beta hydroxybutyrate. She was provided fluid hydration. Urinalysis does show signs of infection after changing out the catheter tubing. Chest x-ray shows mild streaky atelectasis in the right mid and left lower lobe consistent with potential atelectasis versus pneumonia. No other acute cardiopulmonary process. CT of the head shows no acute intracranial process. Given patient's infectious clinical exam system findings and evidence of potential pneumonia on the chest x-ray as well as her hypoxia requiring oxygen supplementation and her urinary infection requiring IV antibiotics she was started on azithromycin and ceftriaxone and will be admitted to the hospital. I re-evaluated the patient and she was having episodes of coughing without any productive cough. She is provide guaifenesin and codeine for suppression. I discussed the case with the hospitalist team being covered by the midlevel provider history at this time. Patient was accepted to a inpatient bed unit for continued treatment, oxygen titration and IV antibiotics. Patient and family were comfortable with this plan of care. Medical Records Attestation: I reviewed the patient's medical records. Lab Data Attestation: I reviewed the patient's lab results. 03/23/24 13:58 03/23/24 14:40 Labs: Lab Results 03/23/24 03/23/24 03/23/24 Range/Units 13:58 14:01 14:34 WBC 8.2 (4.5-10.0) K/mm3 RBC 4.05 L (4.2-5.4) M/mm3 Hgb 12.8 (12.0-15.0) g/dL Hct 40.7 (37.0-47.0) % MCV 100.5 H (80-100) fl MCH 31.6 (26-34) pg MCHC 31.4 L (32-36) g/dl RDW 17.0 H (11.5-14.5) % Plt Count 223 D (150-375) k/mm3 MPV 11.2 H (7.4-10.4) fl Immature Gran % (Auto) 3.1 H (0-0.5) % Neut % (Auto) 68.5 (45.5-73.1) % Lymph % (Auto) 16.8 L (18.3-44.2) % [place] % (Auto) 7.9 (2.6-8.5) % Eos % (Auto) 2.7 (0-4.4) % Baso % (Auto) 1.0 (0.2-1.2) % Lymph # (Auto) 1.38 (0.9-3.2) K/mm3 [place] # (Auto) 0.7 H (0.1-0.6) K/mm3 Eos # (Auto) 0.2 (0-0.3) K/mm3 Baso # (Auto) 0.1 (0.0-0.1) K/mm3 Abs Immat Gran (auto) 0.25 H (0.00-0.031) K/mm3 Absolute Neuts (auto) 5.6 (1.3-6.7) K/mm3 Absolute Nucleated RBC 0.040 H (0.0-0.012) K/mm3 Nucleated RBC % 0.5 H (0.0-0.2) % PT 15.8 H (11.1-14.7) Seconds INR 1.2 APTT 30.5 (22.3-36.8) Seconds Sodium (137-145) mmol/L Potassium (3.4-5.0) mmol/L Chloride (98-107) mmol/L Carbon Dioxide (22-30) mmol/L Anion Gap (4-12) mmol/L BUN (7-17) mg/dL Creatinine (0.7-1.0) mg/dL Estim Creat Clear Calc ml/min Estimated GFR (59 - ) Glucose (65-110) mg/dL POC Capillary Glucose 342 H (65-105) mg/dl Calcium (8.4-10.2) mg/dL Total Bilirubin (0.2-1.3) mg/dL AST (14-36) U/L ALT (6-35) U/L Alkaline Phosphatase (38-126) U/L C-Reactive Protein (<1.0) mg/dL Total Protein (6.3-8.2) g/dL Albumin (3.5-5.1) g/dL Beta-Hydroxybutyrate/Acetoacetate (0.02-0.27) mmol/L Urine Color Yellow (Yellow) Urine Appearance Cloudy H (Clear) Urine pH 5.5 (5.0-9.0) Ur Specific [place] 1.015 (1.001-1.035) Urine Protein Negative (Negative) mg/dL Urine Glucose (UA) 3+ H (Negative) mg/dL Urine Ketones Negative (Negative) mg/dL Ur Blood (Man) Trace (Negative) Urine Nitrate Negative (Negative) Urine Bilirubin Negative (Negative) Urine Urobilinogen 0.2 (<2.0) mg/dL Add Ur Microanalysis Reviewed Leukocyte Esterase Rfl 3+ H (Negative) ARTURO/UL Urine RBC 0-2 (0-2) /hpf Urine WBC >100 H (0-3) /hpf Ur Squamous Epith Cells None seen (Few) /hpf Urine Bacteria 2+ H /hpf Urine Casts 6-10 Influenza A (RT-PCR) Negative (Negative) Influenza B (RT-PCR) Negative (Negative) RSV (RT-PCR) Negative (Negative) SARS-CoV-2 RNA (RT-PCR) Negative (Negative) 03/23/24 Range/Units 14:40 WBC (4.5-10.0) K/mm3 RBC (4.2-5.4) M/mm3 Hgb (12.0-15.0) g/dL Hct (37.0-47.0) % MCV (80-100) fl MCH (26-34) pg MCHC (32-36) g/dl RDW (11.5-14.5) % Plt Count (150-375) k/mm3 MPV (7.4-10.4) fl Immature Gran % (Auto) (0-0.5) % Neut % (Auto) (45.5-73.1) % Lymph % (Auto) (18.3-44.2) % [place] % (Auto) (2.6-8.5) % Eos % (Auto) (0-4.4) % Baso % (Auto) (0.2-1.2) % Lymph # (Auto) (0.9-3.2) K/mm3 [place] # (Auto) (0.1-0.6) K/mm3 Eos # (Auto) (0-0.3) K/mm3 Baso # (Auto) (0.0-0.1) K/mm3 Abs Immat Gran (auto) (0.00-0.031) K/mm3 Absolute Neuts (auto) (1.3-6.7) K/mm3 Absolute Nucleated RBC (0.0-0.012) K/mm3 Nucleated RBC % (0.0-0.2) % PT (11.1-14.7) Seconds INR APTT (22.3-36.8) Seconds Sodium 134 L (137-145) mmol/L Potassium 4.7 (3.4-5.0) mmol/L Chloride 98 (98-107) mmol/L Carbon Dioxide 35 H (22-30) mmol/L Anion Gap 1 L (4-12) mmol/L BUN 54 H D (7-17) mg/dL Creatinine 1.90 H (0.7-1.0) mg/dL Estim Creat Clear Calc 36 ml/min Estimated GFR 26 L (59 - ) Glucose 337 H (65-110) mg/dL POC Capillary Glucose (65-105) mg/dl Calcium 11.1 H (8.4-10.2) mg/dL Total Bilirubin 0.5 (0.2-1.3) mg/dL AST 37 H (14-36) U/L ALT 28 (6-35) U/L Alkaline Phosphatase 129 H (38-126) U/L C-Reactive Protein 4.5 H (<1.0) mg/dL Total Protein 7.0 (6.3-8.2) g/dL Albumin 3.8 (3.5-5.1) g/dL Beta-Hydroxybutyrate/Acetoacetate 0.18 (0.02-0.27) mmol/L Urine Color (Yellow) Urine Appearance (Clear) Urine pH (5.0-9.0) Ur Specific [place] (1.001-1.035) Urine Protein (Negative) mg/dL Urine Glucose (UA) (Negative) mg/dL Urine Ketones (Negative) mg/dL Ur Blood (Man) (Negative) Urine Nitrate (Negative) Urine Bilirubin (Negative) Urine Urobilinogen (<2.0) mg/dL Add Ur Microanalysis Leukocyte Esterase Rfl (Negative) ARTURO/UL Urine RBC (0-2) /hpf Urine WBC (0-3) /hpf Ur Squamous Epith Cells (Few) /hpf Urine Bacteria /hpf Urine Casts Influenza A (RT-PCR) (Negative) Influenza B (RT-PCR) (Negative) RSV (RT-PCR) (Negative) SARS-CoV-2 RNA (RT-PCR) (Negative) ABG Data ABG results: 03/23/24 14:15 VBG pH 7.456 H* VBG pCO2 42.8 VBG pO2 45.3 H VBG HCO3 29.5 O2 Delivery Device Nasal cannula O2 Liters/Min 2.0 FiO2 28 Attestation: I personally reviewed and interpreted this ABG as follows: Interpretation: Mild alkalosis but no signs of any acidosis, normal pCO2 and bicarb. Imaging Data Attestation: I personally reviewed and interpreted this imaging study as follows: My impression: Impressions Chest X-Ray 03/23/24 14:54 IMPRESSION: 1. Mild streaky atelectasis at the right mid and left lower lung zones. No other acute cardiopulmonary disease. Head CT 03/23/24 16:32 IMPRESSION: 1. No acute intracranial process. 2. Stable 1.8 cm extra-axial meningioma at the left cerebral pontine angle. 3. Mild scattered white matter hypoattenuation consistent with chronic small vessel ischemic disease. Critical Care Time Critical Care Time Critical Care Time: Yes Total Critical Care Time: 35 Discharge Plan Discharge Clinical Impression: Respiratory failure with hypoxia, Pneumonia, Acute UTI Patient Disposition: Still a Patient Condition: Stable Time of Disposition: 17:13
[2024-03-23 15:04] LABS: Beta-Hydroxybutyrate/Acetoacetate 0.18 mmol/L (0.02-0.27)
[2024-03-23 15:48] LABS: Alanine Aminotransferase 28 U/L (6-35); Albumin Level 3.8 g/dL (3.5-5.1); Alkaline Phosphatase 129 U/L (38-126); Anion Gap 1 mmol/L (4-12); Aspartate Amino Transferase 37 U/L (14-36); Bilirubin,Total 0.5 mg/dL (0.2-1.3); Blood Urea Nitrogen 54 mg/dL (7-17); Calcium 11.1 mg/dL (8.4-10.2); Carbon Dioxide 35 mmol/L (22-30); Chloride 98 mmol/L (98-107); Estimated CRCL calculation 36 ml/min; Estimated Glomerular Filt Rate 26; Glucose 337 mg/dL (65-110); Potassium 4.7 mmol/L (3.4-5.0); Sodium 134 mmol/L (137-145)
[2024-03-23] MEDS: cefTRIAXone 2 GM/NS 100 ML 2 GM/100 ML BAG IVPB (17:02)
[2024-03-23] MEDS: AZITHROMYCIN 500 MG/NS 250 ML 500 MG/250 ML BAG 250 MG IVPB (17:47)
[2024-03-23] MEDS: guaiFENesin/CODEINE (*CRX) 200/20 MG 10 ML SYRUP PO (17:48)
--- NOTE | 2024-03-23 18:20 | PM.IMHP ---
H&P: HPI History of Present Illness Date/Time: 03/23/24 19:00 Chief Complaint: Multiple complaints. Narrative: This is a 66-year-old female with history of dementia with behavior disturbances, depression with psychosis with history of psychiatric placement with suicidal ideation, poorly controlled insulin-dependent type 2 diabetes mellitus, obstructive sleep apnea/obesity hypoventilation syndrome, neurogenic bladder with chronic indwelling catheter, chronic pain syndrome with chronic opioid dependence, chronic benzodiazepine use, and other comorbidities who presented to the emergency department with multiple complaints. The patient provides the following history. She has not been feeling well for a couple of weeks with multiple symptoms including fatigue, malaise, headache, ear pain, nonproductive cough, shortness of breath with activity, and poor appetite for a couple of weeks. She also reports intermittent episodes of confusion although that does not seem to be an unusual finding for the patient. She was seen at her primary care provider's office today and was referred to the ED for further evaluation. She denies fever, headache, neck ache, sore throat, chest pain, pleuritic pain, palpitations, abdominal pain, back pain vomiting, and diarrhea. No known sick contacts. In the ED: She was afebrile on arrival. SpO2 was 87% on room air, currently on 2 L. Blood pressures have been running high, in the 170s to 180 systolic. Labs are significant for WBC count of 8.2, hemoglobin 12.8, MCV 100.5, sodium 134, carbon dioxide 35, BUN 54, creatinine 1.90, glucose 337, calcium 11.1. Urinalysis was positive for 3+ glucose, 3+ leukocyte esterase, greater than 100 WBC, and 2+ bacteria. She tested negative for influenza, RSV, and COVID. Brain CT showed no acute findings with a stable meningioma. Chest x-ray showed mild streaky atelectasis at the right mid and left lower lung zones. She was given a dose of azithromycin and ceftriaxone in addition to 2 L lactated Ringer's and she is being admitted in this setting due to her oxygen requirement. Review of Systems Review of Systems: 12 systems were reviewed and are negative except for as per HPI. [facility] Past Medical History Medical History (Updated 03/23/24 @ 22:50 by Pooja Hernandez PA-C) Hypothyroidism Mild cognitive impairment with memory loss Obstructive sleep apnea on CPAP Insulin dependent type 2 diabetes mellitus Chronic venous insufficiency Diabetic gastroparesis Chronic indwelling Vigil catheter Due to neurogenic bladder Dementia with behavioral disturbance Morbid obesity with BMI of 40.0-44.9, adult Vitamin D deficiency, unspecified Severe recurrent major depressive disorder with psychotic features Post-menopausal Polypharmacy Mixed hyperlipidemia Gout Dyskinesia, tardive Diabetic nephropathy associated with type 2 diabetes mellitus Depressive type psychosis Chronic pain disorder Chronic kidney disease, stage III (moderate) Body mass index [BMI] 39.0-39.9, adult (11/12/16) Benzodiazepine abuse, continuous Anxiety Antipsychotic-induced akathisia Pulmonary embolism (2020) Benign essential hypertension Brain hypoxia Chronic obstructive pulmonary disease Psychophysiological insomnia Surgical History Surgical History (Updated 03/23/24 @ 18:49 by Pooja Hernandez PA-C) History of section History of hysterectomy History of back surgery Family History Family History Father Diabetes mellitus Hypertension Patient's father is , Onset Age: 75 Family history of renal failure Heart disease Cancer Mother Family history of malignant neoplasm of stomach Hypertension Cancer Thyroid disorder Sibling Depression Other Family history of arthritis Social History Social History (Updated 03/23/24 @ 23:12 by Pooja Hernandez PA-C) Social History: Code status: Full code (per EMR) Surrogate decision maker: Serjio () Smoking status: Never smoker Second hand tobacco smoke exposure: No Alcohol intake: never Substance use: current Substance use type: marijuana Other substance usage details: hx of marijuana use 2022 Do You Feel Safe in your Home?: Yes Lack of Transportation: No Lack of Food: Never True Current Housing: I Have Housing Concerned About Future Housing: No Difficulty Paying Gas/Electric Bills: No Difficulty Paying for Meds: No Currently Unemployed: No Education: High School Diploma/GED Difficulty w/ Childcare or Family Care: No Living arrangements: with family Additional living arrangements comments: She lives at home with her . Her daughters, and help at night. She has home caregivers that, for 8 hours each day. Patient reports that she ambulates with a walker. Occupation/Education: retired Spiritual care concerns: No Meds Home Medications and Allergies Home Medications ?Medication ?Instructions ?Recorded ?Confirmed ?Type acetaminophen 500 mg tablet 1,000 mg PO BID Pain 07/10/20 03/23/24 History (Tylenol Extra Strength) multivit with minerals-iron 18 1 tablet PO DAILY 03/06/21 03/23/24 History mg-folic ac 400 mcg-vit K 25 mcg tablet (Adults Multivitamin) aspirin 81 mg tablet,delayed 81 mg PO BID 10/30/21 03/23/24 History release clotrimazole-betamethasone 1 1 applic topical BID 05/18/23 03/23/24 History %-0.05 % topical cream dextrin 3 gram/4 gram oral powder 2 tsp PO TID PRN Constipation 05/18/23 03/23/24 History (Clear Fiber) cholecalciferol (vitamin D3) 1,250 1,250 mcg PO WEEKLY #12 tabs 08/25/23 03/23/24 Rx mcg (50,000 unit) tablet quetiapine 200 mg tablet 100 mg (1/2 x 200 mg) PO BID #180 10/12/23 03/23/24 Rx tabs atorvastatin 10 mg tablet 10 mg PO DAILY 02/02/24 03/23/24 History benztropine 0.5 mg tablet 0.5 mg PO TID 02/02/24 03/23/24 History duloxetine 30 mg capsule,delayed 30 mg PO HS 02/02/24 03/23/24 History release lactulose 10 gram/15 mL oral 15 ml PO BID PRN Constipation 02/02/24 03/23/24 History solution metoprolol tartrate 50 mg tablet 50 mg PO Q12H 02/02/24 03/23/24 History ferrous sulfate 325 mg (65 mg 325 mg PO BID 02/14/24 03/23/24 History iron) tablet lactobacillus combination no.9 1 cap PO DAILY 02/14/24 03/23/24 History nystatin 100,000 unit/gram topical 1 applic topical BID 02/14/24 03/23/24 History cream furosemide 40 mg tablet See Rx Instructions .Route 02/23/24 03/23/24 Rx .COMPLEX #90 tabs tramadol 50 mg tablet 50 mg PO TID PRN pain #60 tabs 02/27/24 03/23/24 Rx apixaban 2.5 mg tablet (Eliquis) 2.5 mg PO BID #60 tabs 03/19/24 03/23/24 Rx clonidine HCl 0.1 mg tablet 0.1 mg PO BID #180 tabs 03/19/24 03/23/24 Rx dulaglutide 3 mg/0.5 mL 3 mg (0.5 mL) subcut WEEKLY #2 mL 03/19/24 03/23/24 Rx subcutaneous pen injector (Trulicity) insulin glargine 100 unit/mL (3 35 unit subcut BID 03/23/24 03/23/24 History mL) subcutaneous pen (Basaglar KwikPen U-100 Insulin) memantine ER 28 mg-donepezil 10 mg 1 cap PO HS 03/23/24 03/23/24 History capsule sprinkle,ext.release 24 hr (Namzaric) oxybutynin chloride 5 mg 5 mg PO DAILY PRN bladder spasms 03/23/24 03/23/24 History tablet,extended release 24 hr pregabalin 100 mg capsule 100 mg PO BID 03/23/24 03/23/24 History pregabalin 200 mg capsule 200 mg PO HS 03/23/24 03/23/24 History Allergies Allergy/AdvReac Type Severity Reaction Status Date / Time ciprofloxacin Allergy Mild Hives Verified 03/23/24 11:40 metronidazole Allergy Mild Hives Verified 03/23/24 11:40 divalproex sodium Allergy Unknown Unknown Verified 03/23/24 11:40 vancomycin Allergy Unknown Unknown Verified 03/23/24 11:40 Vital Signs Vital Signs - 24 hr 03/23/24 12:21 03/23/24 12:34 03/23/24 13:38 Temperature 97.1 F L Pulse Rate 87 89 Respiratory Rate 20 20 Blood Pressure 141/69 H 162/80 H Pulse Oximetry 87 L 95 97 Oxygen Delivery Room Air Nasal Cannula Oxygen Flow Rate 2 03/23/24 13:46 03/23/24 13:53 03/23/24 13:53 Temperature Pulse Rate 92 88 Respiratory Rate 17 Blood Pressure 149/82 H Pulse Oximetry 95 99 Oxygen Delivery Nasal Cannula Oxygen Flow Rate 2 03/23/24 14:03 03/23/24 14:16 03/23/24 14:32 Temperature Pulse Rate 91 87 88 Respiratory Rate 18 20 16 Blood Pressure 146/79 H 155/87 H 172/78 H Pulse Oximetry 100 99 Oxygen Delivery Oxygen Flow Rate 03/23/24 14:47 03/23/24 15:02 03/23/24 15:17 Temperature Pulse Rate 86 88 87 Respiratory Rate 21 H 22 H 18 Blood Pressure 174/75 H 150/71 H 142/78 H Pulse Oximetry 97 98 100 Oxygen Delivery Oxygen Flow Rate 03/23/24 15:31 03/23/24 16:02 03/23/24 16:17 Temperature Pulse Rate 87 88 87 Respiratory Rate 21 H 17 18 Blood Pressure 148/73 H 138/77 158/78 H Pulse Oximetry 65 L 100 Oxygen Delivery Oxygen Flow Rate 03/23/24 16:57 03/23/24 17:02 03/23/24 17:26 Temperature 98.3 F Pulse Rate 91 86 119 H Respiratory Rate 13 17 22 H Blood Pressure 189/64 H 181/84 H 102/63 Pulse Oximetry 100 99 96 Oxygen Delivery Oxygen Flow Rate 03/23/24 17:30 03/23/24 17:46 Temperature Pulse Rate 108 H 119 H Respiratory Rate 28 H 19 Blood Pressure 111/70 122/69 Pulse Oximetry 95 94 Oxygen Delivery Oxygen Flow Rate Exam Narrative: General: Chronically ill-appearing female supine in bed. Occasionally moans and says she feels terrible. Weight: 137.5 kg. BMI: 46.1. HEENT: PERRL, EOMI. Sclera anicteric. Dry mucous membranes. Oropharynx not visualized. Neck: Supple. Exam limited due to neck circumference. No obvious JVD, lymphadenopathy, or thyromegaly. Respiratory: Currently on 2 L nasal cannula. Respirations are nonlabored. Lung sounds are diminished due to body habitus but other by sound clear to auscultation. Cardiovascular: Tachycardic with S1-S2. Gastrointestinal: Abdomen is soft, morbidly obese, nontender, and nondistended with positive bowel sounds. Genitourinary: Catheter draining cloudy yellow urine. Skin: Warm and dry. Macerated buttocks according to RN. Extremities: No cyanosis or clubbing. 2+ lower extremity pitting edema. Peripheral pulses palpable. Neurological: Alert and oriented x4 at the time my evaluation. Cranial nerves 2-12 are grossly intact. Speech is clear. No facial asymmetry. Generalized weakness without gross focal findings. She did not fully participate in neurologic exam. Psychiatric: Cooperative with appropriate mood and flat and slightly odd affect. H&P: Results Labs Labs: Short CBC 03/23/24 Range/Units 13:58 WBC 8.2 (4.5-10.0) K/mm3 Hgb 12.8 (12.0-15.0) g/dL Hct 40.7 (37.0-47.0) % Plt Count 223 D (150-375) k/mm3 BMP 03/23/24 14:40 Sodium 134 L Potassium 4.7 Chloride 98 Carbon Dioxide 35 H BUN 54 H D Creatinine 1.90 H Glucose 337 H Calcium 11.1 H Liver Function 03/23/24 Range/Units 14:40 Total Bilirubin 0.5 (0.2-1.3) mg/dL AST 37 H (14-36) U/L ALT 28 (6-35) U/L Alkaline Phosphatase 129 H (38-126) U/L Albumin 3.8 (3.5-5.1) g/dL Urine 03/23/24 Range/Units 14:34 Urine Color Yellow (Yellow) Urine Appearance Cloudy H (Clear) Urine pH 5.5 (5.0-9.0) Ur Specific [place] 1.015 (1.001-1.035) Urine Protein Negative (Negative) mg/dL Urine Glucose (UA) 3+ H (Negative) mg/dL Impressions Chest X-Ray 03/23/24 14:54 IMPRESSION: 1. Mild streaky atelectasis at the right mid and left lower lung zones. No other acute cardiopulmonary disease. Head CT 03/23/24 16:32 IMPRESSION: 1. No acute intracranial process. 2. Stable 1.8 cm extra-axial meningioma at the left cerebral pontine angle. 3. Mild scattered white matter hypoattenuation consistent with chronic small vessel ischemic disease. Assessment and Plan Assessment and plan (1) Hypoxia: Code(s): R09.02 - Hypoxemia Status: Acute (2) Hypercalcemia: Code(s): E83.52 - Hypercalcemia Status: Acute (3) Dehydration: Code(s): E86.0 - Dehydration Status: Acute (4) Insulin dependent type 2 diabetes mellitus: Code(s): E11.9 - Type 2 diabetes mellitus without complications; Z79.4 - intermediate accountant (current) use of insulin Status: Acute (5) Obstructive sleep apnea on CPAP: Code(s): G47.33 - Obstructive sleep apnea (adult) (pediatric) Status: Acute Plan The patient presented to the emergency department with multiple complaints as detailed above. Labs, imaging, EKG, and all reports were personally reviewed. She gives a 2 week history of symptoms which are consistent with a respiratory infection, probably viral as she has been afebrile and has a normal WBC count (negative for influenza, RSV, and COVID). It sounds as though symptoms are resolving but she is likely dehydrated due to poor oral intake from when she was really feeling unwell. She was hypoxic on arrival although chest x-ray was without significant findings, only showing mild streaky atelectasis. She is morbidly obese with a history of MALIA/OSH and should probably have a home oxygen study prior to discharge. PE is considered however she is on apixaban although has a documented history of occasional medication noncompliance. Check D-dimer and if elevated she will need a chest CTA. Transient confusion does not sound like it is a new problem as she has been hospitalized with similar presenting complaints before and she seems to be at her baseline at this time without focal findings. Brain CT showed nothing acute. Calcium is up a bit, possibly due to dehydration as her BUN and creatinine are also elevated, and I suppose that could be causing some confusion though it is not significantly elevated and should improve with IV fluids. Check TSH, B12, ammonia, and urine drug screen to rule out other etiologies of confusion. She has asymptomatic bacteriuria due to chronic indwelling catheter and antibiotics are not indicated. Random glucose was over 300; continue basal insulin and initiate sliding scale insulin, Accu-Cheks, and hypoglycemic protocol. Hemoglobin A1c was 10.1% about 6 weeks ago which is quite a bit higher than what she typically runs. Consult dietitian and elementary educator. Blood pressures were reviewed and they are stable. Her home medications will be reviewed and resumed as appropriate. Findings and treatment plan were discussed with the patient. Questions were solicited and answered to satisfaction. The patient's medical management will be taken over by the hospitalist team in a.m. Hospitalist [facility] Advance Care Plan I have confirmed that the patient's Advanced Care Plan is present, code status is documented, or surrogate decision maker is listed in patient medical record.: Yes Medication Reconciliation I have utilized all available resources to obtain, update and review the patients current medications (includes all prescriptions, OTC, herbals, cannabis, and nutritional supplements).: Yes
[2024-03-23 19:35] LABS: CRP 4.5 mg/dL (<1.0)
--- NOTE | 2024-03-23 21:01 | PC.NURSE ---
daughter was called at this time to update her.. Christina Michel
--- NOTE | 2024-03-23 21:07 | ADMGEN ---
This patient, Christine Michel, was admitted to Medical Room 252-. Patient/family oriented to hospital policies and general routines including ID bracelet, bed and alarms, visiting hours, pain management, procedures, bathroom and other care routines, personal items, smoking policy, room service/diet, and visiting hours. Information on how to activate the Rapid Response Team has been discussed. Patient/Family are encouraged to report perceived risks to care and to ask questions if they do not understand what they are told or what they should do.
[2024-03-24] VITALS (16 sets, daily range): BP systolic 144–189; BP diastolic 60–81; PULSE 77–112; RESP 16–18; TEMP 36.2–36.5; O2SAT 93–98
[2024-03-24] MEDS: SODIUM CHLORIDE 0.9% IV 1,000 ML 100 ML IV CONT (00:05)
[2024-03-24] MEDS: METOPROLOL TARTRATE 50 MG TAB PO ×3 (00:06→20:34)
[2024-03-24] MEDS: APIXABAN 2.5 MG TABLET PO ×3 (00:07→20:42)
[2024-03-24 06:10] LABS: Basophils Absolute Auto 0.1 K/mm3 (0.0-0.1); Basophils Percent Auto 0.8 % (0.2-1.2); Eosinophils Absolute Auto 0.2 K/mm3 (0-0.3); Eosinophils Percent Auto 2.1 % (0-4.4); Hematocrit 39.2 % (37.0-47.0); Hemoglobin 12.2 g/dL (12.0-15.0); Immature Granulocyte Absolute 0.37 K/mm3 (0.00-0.031); Immature Granulocyte Percent A 3.9 % (0-0.5); Lymphocytes Absolute Auto 1.66 K/mm3 (0.9-3.2); Lymphocytes Percent Auto 17.3 % (18.3-44.2); Mean Corpuscular HGB Conc 31.1 g/dl (32-36); Mean Corpuscular Hemoglobin 31.9 pg (26-34); Mean Corpuscular Volume 102.6 fl (80-100); Mean Platelet Volume 10.9 fl (7.4-10.4); Monocytes Absolute Auto 0.7 K/mm3 (0.1-0.6); Monocytes Percent Auto 6.8 % (2.6-8.5); Neutrophils Absolute Auto 6.6 K/mm3 (1.3-6.7); Neutrophils Percent Auto 69.1 % (45.5-73.1); Nucleated Red Blood Cells Perc 0.2 % (0.0-0.2); Platelet Count Result 223 k/mm3 (150-375); Red Blood Count 3.82 M/mm3 (4.2-5.4); Red Cell Distribution Width 17.1 % (11.5-14.5); White Blood Count 9.6 K/mm3 (4.5-10.0)
[2024-03-24 06:22] LABS: Alanine Aminotransferase 24 U/L (6-35); Albumin Level 3.5 g/dL (3.5-5.1); Alkaline Phosphatase 109 U/L (38-126); Ammonia < 9 umol/L (9-30); Anion Gap -2 mmol/L (4-12); Aspartate Amino Transferase 25 U/L (14-36); Bilirubin,Total 0.4 mg/dL (0.2-1.3); Blood Urea Nitrogen 50 mg/dL (7-17); Calcium 10.4 mg/dL (8.4-10.2); Carbon Dioxide 37 mmol/L (22-30); Chloride 99 mmol/L (98-107); Estimated CRCL calculation 40 ml/min; Estimated Glomerular Filt Rate 28; Glucose 283 mg/dL (65-110); Magnesium 2.4 mg/dL (1.6-2.3); Potassium 4.9 mmol/L (3.4-5.0); Sodium 134 mmol/L (137-145)
[2024-03-24 06:40] LABS: Procalcitonin 0.8 ng/mL
[2024-03-24 07:02] LABS: D Dimer 0.89 ug/mL (<0.48)
[2024-03-24 07:12] LABS: Vitamin B12 > 1000.0 pg/mL (239-931)
[2024-03-24 08:42] LABS: Glucose Point of Care 320 mg/dl (65-105)
[2024-03-24] MEDS: INSULIN ASPART (*BKC) 100 UNITS/ML SUB-Q ×4 (09:04→20:45)
[2024-03-24] MEDS: BENZTROPINE MESYLATE 0.5 MG TABLET PO ×3 (09:05→18:09)
[2024-03-24] MEDS: FERROUS SULFATE 325 MG TABLET DR PO ×2 (09:05→18:09)
[2024-03-24] MEDS: ACIDOPHILUS/BULGARICUS CHEWABLE TABLET 1 TABLET BY MOUTH (09:06)
[2024-03-24] MEDS: ASPIRIN 81 MG ENTERIC TABLET PO ×2 (09:06→18:09)
[2024-03-24] MEDS: BETAMETHASONE/CLOTRIMAZOLE CREAM 15 GM TUBE 1 APPLIC TOPICAL ×2 (09:07→21:00)
[2024-03-24] MEDS: ATORVASTATIN 10 MG TABLET PO (09:07)
[2024-03-24] MEDS: QUEtiapine FUMARATE 100 MG TABLET PO ×2 (09:07→18:09)
[2024-03-24] MEDS: MULTIVITAMINS /C LUTEIN (CENTRUM SILVER) TABLET *BKC 1 TAB PO (09:07)
[2024-03-24] MEDS: MICONAZOLE NITRATE 2% CREAM 30 GM TUBE 1 APPLIC TOPICAL ×2 (09:08→18:09)
[2024-03-24] MEDS: PREGABALIN (*CRX) 50 MG CAPSULE 100 MG PO ×2 (09:13→12:50)
[2024-03-24] MEDS: INSULIN GLARGINE (*BKC) 100 UNITS/ML 35 UNITS SUB-Q ×2 (09:13→20:53)
[2024-03-24 12:23] LABS: Glucose Point of Care 336 mg/dl (65-105)
[2024-03-24] MEDS: AMOXICILLIN/CLAVULANATE K 875-125 MG TAB 1 TABLET PO (12:50)
[2024-03-24 14:05] LABS: Amphetamine Screen Urine Negative (Negative); Barbiturate Screen Urine Negative (Negative); Benzodiazepines Screen Urine Negative (Negative); Cannabinoid Screen Urine Negative (Negative); Cocaine Screen Urine Negative (Negative); Methadone Screen Urine Negative (Negative); Opiate Screen Urine Positive (Negative); Phencyclidine Screen Urine Negative (Negative)
--- NOTE | 2024-03-24 14:28 | P.PNIM_ITS ---
Progress Note: A&P Assessment and Plan (1) Respiratory failure with hypoxia: Code(s): J96.91 - Respiratory failure, unspecified with hypoxia Status: Acute Assessment and Plan: patient has history several admissions due to acute respiratory failure with hypoxia, does have history polysubstance abuse and was positive for opiates, also had history of MALIA however does not wear CPAP at night. patient did have productive cough a chest x-ray showed just atelectasis but did associated upper respiratory infection. * azithromycin/ Rocephin IV full coverage for also UTI * wean oxygen as tolerated to maintain 92% * order a home oxygen study * mucolytics * incentive spirometer * Duo nebulizers * recommended patient get sleep study outpatient would benefit from a CPAP at night * D-dimer was mildly elevated but will hold off on CTA due to patient's renal function she is currently on Eliquis do not feel this would meet criteria at this time * patient does take a few sedative medications such as Lyria monitor mg daily as well as tramadol will need to educate on sedative affects (2) Acute UTI: Code(s): N39.0 - Urinary tract infection, site not specified Status: Inactive Assessment and Plan: * UA showed 2+ protein, 2+ blood, 3+ leukocytes, 3-5 urine RBC, greater than 100 urine WBC, moderate urine squamous epithelial cells seen, 4+ bacteria. * Patient does have a chronic Vigil secondary to neurogenic bladder which was exchanged yesterday 03/23/2024 * Urine culture obtained is pending * most recent urine culture grew E coli sensitive to Rocephin * IV Rocephin pending cultures (3) Mild cognitive impairment with memory loss: Code(s): G31.84 - Mild cognitive impairment of uncertain or unknown etiology Status: Resolved Assessment and Plan: * resume patient's home medication Namzaric (4) Neurogenic bladder: Code(s): N31.9 - Neuromuscular dysfunction of bladder, unspecified Status: Acute Assessment and Plan: * chronic indwelling Vigil catheter changed on the emergency department (5) Diabetes mellitus with diabetic dermatitis, with long-term current use of insulin: Code(s): E11.620 - Type 2 diabetes mellitus with diabetic dermatitis; Z79.4 - longterm (current) use of insulin Status: Acute Assessment and Plan: * Accu-Cheks a.c. HS * sliding scale insulin * hold oral diabetic medications * resume patient's home long-acting * Diabetic diet * Optimize Margarito inhibitors and statins. * Watch for hypoglycemia/hypoglycemic protocol ordered (6) Morbid obesity with BMI of 40.0-44.9, adult: Code(s): E66.01 - Morbid (severe) obesity due to excess calories; Z68.41 - Body mass index [BMI] 40.0-44.9, adult Status: Chronic Assessment and Plan: * encourage increased on physical activity and lifestyle modifications * BMI 46.5 * Diet exercise counseling done. * consult to dietitian (7) Chronic kidney disease due to diabetes mellitus: Code(s): E11.22 - Type 2 diabetes mellitus with diabetic chronic kidney disease Status: Acute Assessment and Plan: * Initial creatinine Close to baseline * Baseline creatinine 1.1-1.3, baseline EGFR 32-49 * Continue to trend labs * Will hold Lasix * Avoid nephrotoxins * renal dose antibiotics (8) Bilateral lower extremity edema: Code(s): R60.0 - Localized edema Status: Acute Assessment and Plan: 1 to 2+ pitting edema bilateral lower extremity * D-dimer was done and elevated * venous Dopplers pending * will resume patient's oral Lasix Plan Code status: Full code per patient DVT prophylaxis: Eliquis Stress ulcer prophylaxis: GEMA PT/OT notes: pending Disposition: patient continues admission for acute respiratory failure with hypoxia will treat for upper respiratory infection but likely secondary to polypharmacy with sedatives MALIA will continue to wean oxygen as tolerated plan for home walk study prior to discharge. PT OT has been ordered and pending for any further recommendations but likely plan is to return home with family. Time Spent With Patient Time with patient: 15 - 25 minutes Subjective Date/time seen: 03/24/24 14:28 Interval history: Patient is a 68 year old female admitted for acute respiratory failure with hypoxia likely secondary to URI, opiate dependency, UTI and MALIA. 03/24/2024: Assumed Care Patient denies SOB but has moderate to severe productive cough. She was able to maintain oxygen with removal of oxygen for 1 hour. Denied SP, N/V, fever chills, urinary symptoms, or pain to BLE. Review of Systems Review of Systems: All systems reviewed & are unremarkable except as noted in HPI and below Exam Narrative: * GENERAL: Alert and oriented x 3 Pleasant obese female. No acute distress. * EYES: EOMI. No scleral icterus. PERRLA. * HEENT: Moist mucous membranes. * LUNGS:diminished auscultation bilaterally. No accessory muscle use. Productive cough * CARDIOVASCULAR: Regular rate and rhythm. No murmur. S1-S2 * ABDOMEN: Soft, non tenderness and non-distended, obese. No palpable masses. * EXTREMITIES: 2+ pitting edema BLE * SKIN: No rashes or lesions. Skin warm, dry. * NEUROLOGIC: No focal neurological deficits. CN II-XII grossly intact * PSYCHIATRIC: Appropriate mood and affect. Good judgement and insight. Objective Data Vital Signs Vital Signs: Vital Signs - 24 hr 03/23/24 14:32 03/23/24 14:47 03/23/24 15:02 Temperature Pulse Rate 88 86 88 Respiratory Rate 16 21 H 22 H Blood Pressure 172/78 H 174/75 H 150/71 H Pulse Oximetry 99 97 98 Oxygen Delivery Oxygen Flow Rate 03/23/24 15:17 03/23/24 15:31 03/23/24 16:02 Temperature Pulse Rate 87 87 88 Respiratory Rate 18 21 H 17 Blood Pressure 142/78 H 148/73 H 138/77 Pulse Oximetry 100 65 L Oxygen Delivery Oxygen Flow Rate 03/23/24 16:17 03/23/24 16:57 03/23/24 17:02 Temperature 98.3 F Pulse Rate 87 91 86 Respiratory Rate 18 13 17 Blood Pressure 158/78 H 189/64 H 181/84 H Pulse Oximetry 100 100 99 Oxygen Delivery Oxygen Flow Rate 03/23/24 17:26 03/23/24 17:30 03/23/24 17:46 Temperature Pulse Rate 119 H 108 H 119 H Respiratory Rate 22 H 28 H 19 Blood Pressure 102/63 111/70 122/69 Pulse Oximetry 96 95 94 Oxygen Delivery Oxygen Flow Rate 03/23/24 18:16 03/23/24 18:57 03/23/24 21:15 Temperature 98.2 F Pulse Rate 109 H 109 H 102 H Respiratory Rate 24 H 19 16 Blood Pressure 127/78 124/62 154/79 H Pulse Oximetry 98 97 100 Oxygen Delivery Oxygen Flow Rate 03/23/24 21:28 03/23/24 22:02 03/24/24 00:00 Temperature Pulse Rate 107 H 104 H Respiratory Rate Blood Pressure Pulse Oximetry 100 Oxygen Delivery Nasal Cannula Oxygen Flow Rate 2 03/24/24 00:03 03/24/24 00:06 03/24/24 04:00 Temperature Pulse Rate 106 H 112 H 81 Respiratory Rate Blood Pressure 144/81 H Pulse Oximetry Oxygen Delivery Oxygen Flow Rate 03/24/24 06:04 03/24/24 08:00 03/24/24 09:06 Temperature 97.7 F Pulse Rate 77 89 98 Respiratory Rate 16 Blood Pressure 189/71 H Pulse Oximetry 98 Oxygen Delivery Oxygen Flow Rate 03/24/24 12:00 Temperature Pulse Rate 83 Respiratory Rate Blood Pressure Pulse Oximetry Oxygen Delivery Oxygen Flow Rate Intake/Output Intake/Output: Intake & Output 03/21/24 03/22/24 03/23/24 03/24/24 23:59 23:59 23:59 23:59 Intake Total 2350 590 Output Total 500 Balance 2350 90 Meds/Results Medications: Active Medications Generic Name Dose Route Start Last Admin Trade Name Freq PRN Reason Stop Dose Admin Acetaminophen 650 mg 03/23/24 23:19 Acetaminophen 325 Mg Tablet PO Q6H PRN Mild Pain (1-3) or Fever Amoxicillin/Clavulanate Potassium 1 tablet 03/24/24 11:25 03/24/24 12:50 Amoxicillin/Clavulanate K 875-125 Mg Tab PO 1 tablet Q12HR EMMIE Administration Apixaban 2.5 mg 03/23/24 23:25 03/24/24 09:07 Apixaban 2.5 Mg Tablet PO 2.5 mg Q12HR EMMIE Administration Aspirin 81 mg 03/24/24 09:00 03/24/24 09:06 Aspirin 81 Mg Enteric Tablet PO 81 mg BID EMMIE Administration Atorvastatin Calcium 10 mg 03/24/24 09:00 03/24/24 09:07 Atorvastatin 10 Mg Tablet PO 10 mg DAILY EMMEI Administration Benztropine Mesylate 0.5 mg 03/24/24 09:00 03/24/24 12:50 Benztropine Mesylate 0.5 Mg Tablet PO 0.5 mg TID EMMEI Administration Clonidine HCl 0.1 mg 03/24/24 09:00 Clonidine Hcl 0.1 Mg Tablet PO BID EMMIE Clotrimazole 1 applic 03/24/24 09:00 03/24/24 09:07 Betamethasone/Clotrimazole Cream 15 Gm Tube TOPICAL 1 applic Q12HR [facility] Administration Dextrose 12.5 gm 03/23/24 23:19 Dextrose 50% 25 Gm/50 Ml Syringe IV PUSH PRN PRN Hypoglycemia Protocol Donepezil HCl 10 mg 03/24/24 21:00 Donepezil Hcl 10 Mg Tablet PO HS [facility] Duloxetine HCl 30 mg 03/24/24 21:00 Duloxetine Hcl 30 Mg Capsule. PO HS [facility] Ferrous Sulfate 325 mg 03/24/24 09:00 03/24/24 09:05 Ferrous Sulfate [address] PO 325 mg BID EMMIE Administration Glucagon 1 mg 03/23/24 23:19 Glucagon For Inj 1 Mg Vial IM PRN PRN Hypoglycemia Protocol Glucose 15 gm 03/23/24 23:19 Glucose Oral Gel 15 Gm Of Glucse In 37.5 Gm Tube PO PRN PRN Hypoglycemia Protocol Dextrose 1,000 mls @ 100 mls/hr 03/23/24 23:19 Dextrose 5% 1,000 Ml IVPB PRN PRN Hypoglycemia Protocol Insulin Aspart 4 - 8 units 03/24/24 08:00 03/24/24 12:49 Insulin Aspart (*Bkc) 100 Units/Ml SUB-Q 6 units TIDWM [facility] Administration Protocol Insulin Aspart 2 - 4 units 03/24/24 21:00 Insulin Aspart (*Bkc) 100 Units/Ml SUB-Q HS [facility] Protocol Insulin Glargine 35 units 03/24/24 09:00 03/24/24 09:13 Insulin Glargine (*Bkc) 100 Units/Ml SUB-Q 35 units Q12HR [facility] Administration Lactobacillus Acidophilus 1 tablet 03/24/24 09:00 03/24/24 09:06 Acidophilus/Bulgaricus Chewable Tablet BY MOUTH 1 tablet DAILY [facility] Administration Memantine 28 mg 03/24/24 21:00 Memantine Hcl Xr 28 Mg Cap PO 04/23/24 20:59 HS [facility] Metoprolol Tartrate 50 mg 03/23/24 23:20 03/24/24 09:06 Metoprolol Tartrate 50 Mg Tab PO 50 mg Q12HR EMMIE Administration Miconazole Nitrate 1 applic 03/24/24 09:00 03/24/24 09:08 Miconazole Nitrate 2% Cream 30 Gm Tube TOPICAL 1 applic BID EMMIE Administration Miscellaneous Information 0 each 03/24/24 00:01 03/24/24 07:46 Dextrin Fiber Nonform Can We Sub With Metamucil? XX 04/23/24 00:00 Not Given CLARIFY [facility] Multivitamins/Minerals 1 tab 03/24/24 09:00 03/24/24 09:07 Multivitamins /C Lutein (Centrum Silver) Tablet *Bkc PO 1 tab DAILY EMMIE Administration Non-Formulary Medication 2 tsp 03/23/24 23:20 Dextrin [Clear Fiber] PO TID PRN Constipation Oxybutynin Chloride 5 mg 03/23/24 23:20 Oxybutynin Chloride Xl 5 Mg Tab.Er.24 PO DAILY PRN bladder spasms Pregabalin 100 mg 03/24/24 09:00 03/24/24 12:50 Pregabalin (*Crx) 50 Mg Capsule PO 100 mg 0900,1200 [facility] Administration Pregabalin 200 mg 03/24/24 21:00 Pregabalin (*Crx) 50 Mg Capsule PO HS [facility] Quetiapine Fumarate 100 mg 03/24/24 09:00 03/24/24 09:07 Quetiapine Fumarate 100 Mg Tablet PO 100 mg BID EMMIE Administration Radiology Results: ITS Impressions Chest X-Ray 03/23/24 14:54 IMPRESSION: 1. Mild streaky atelectasis at the right mid and left lower lung zones. No other acute cardiopulmonary disease. Head CT 03/23/24 16:32 IMPRESSION: 1. No acute intracranial process. 2. Stable 1.8 cm extra-axial meningioma at the left cerebral pontine angle. 3. Mild scattered white matter hypoattenuation consistent with chronic small v essel ischemic disease. Labs Labs: Laboratory Results - last 24 hr 03/23/24 03/23/24 03/23/24 13:58 14:34 14:40 WBC RBC Hgb Hct MCV MCH MCHC RDW Plt Count MPV Immature Gran % (Auto) Neut % (Auto) Lymph % (Auto) [place] % (Auto) Eos % (Auto) Baso % (Auto) Lymph # (Auto) [place] # (Auto) Eos # (Auto) Baso # (Auto) Abs Immat Gran (auto) Absolute Neuts (auto) Absolute Nucleated RBC Nucleated RBC % PT 15.8 H INR 1.2 APTT 30.5 D-Dimer Sodium 134 L Potassium 4.7 Chloride 98 Carbon Dioxide 35 H Anion Gap 1 L BUN 54 H D Creatinine 1.90 H Estim Creat Clear Calc 36 Estimated GFR 26 L Glucose 337 H POC Capillary Glucose Calcium 11.1 H Magnesium Total Bilirubin 0.5 AST 37 H ALT 28 Alkaline Phosphatase 129 H Ammonia C-Reactive Protein 4.5 H Total Protein 7.0 Albumin 3.8 Vitamin B12 Beta-Hydroxybutyrate/Acetoacetate 0.18 Procalcitonin Urine Color Yellow Urine Appearance Cloudy H Urine pH 5.5 Ur Specific Martin 1.015 Urine Protein Negative Urine Glucose (UA) 3+ H Urine Ketones Negative Ur Blood (Man) Trace Urine Nitrate Negative Urine Bilirubin Negative Urine Urobilinogen 0.2 Add Ur Microanalysis Reviewed Leukocyte Esterase Rfl 3+ H Urine RBC 0-2 Urine WBC >100 H Ur Squamous Epith Cells None seen Urine Bacteria 2+ H Urine Casts 6-10 Urine Opiates Screen Urine Methadone Screen Ur Barbiturates Screen Ur Phencyclidine Scrn Ur Amphetamine Screen U Benzodiazepines Scrn Urine Cocaine Screen U Cannabinoids Screen Influenza A (RT-PCR) Negative Influenza B (RT-PCR) Negative RSV (RT-PCR) Negative SARS-CoV-2 RNA (RT-PCR) Negative 03/24/24 03/24/24 03/24/24 05:56 08:36 12:17 WBC 9.6 RBC 3.82 L Hgb 12.2 Hct 39.2 MCV 102.6 H MCH 31.9 MCHC 31.1 L RDW 17.1 H Plt Count 223 MPV 10.9 H Immature Gran % (Auto) 3.9 H Neut % (Auto) 69.1 Lymph % (Auto) 17.3 L [place] % (Auto) 6.8 Eos % (Auto) 2.1 Baso % (Auto) 0.8 Lymph # (Auto) 1.66 [place] # (Auto) 0.7 H Eos # (Auto) 0.2 Baso # (Auto) 0.1 Abs Immat Gran (auto) 0.37 H Absolute Neuts (auto) 6.6 Absolute Nucleated RBC 0.020 H Nucleated RBC % 0.2 PT INR APTT D-Dimer 0.89 H Sodium 134 L Potassium 4.9 Chloride 99 Carbon Dioxide 37 H Anion Gap -2 L BUN 50 H Creatinine 1.80 H Estim Creat Clear Calc 40 Estimated GFR 28 L Glucose 283 H POC Capillary Glucose 320 H 336 H Calcium 10.4 H Magnesium 2.4 H Total Bilirubin 0.4 AST 25 ALT 24 Alkaline Phosphatase 109 Ammonia < 9 L C-Reactive Protein Total Protein 7.0 Albumin 3.5 Vitamin B12 > 1000.0 H Beta-Hydroxybutyrate/Acetoacetate Procalcitonin 0.8 Urine Color Urine Appearance Urine pH Ur Specific Martin Urine Protein Urine Glucose (UA) Urine Ketones Ur Blood (Man) Urine Nitrate Urine Bilirubin Urine Urobilinogen Add Ur Microanalysis Leukocyte Esterase Rfl Urine RBC Urine WBC Ur Squamous Epith Cells Urine Bacteria Urine Casts Urine Opiates Screen Urine Methadone Screen Ur Barbiturates Screen Ur Phencyclidine Scrn Ur Amphetamine Screen U Benzodiazepines Scrn Urine Cocaine Screen U Cannabinoids Screen Influenza A (RT-PCR) Influenza B (RT-PCR) RSV (RT-PCR) SARS-CoV-2 RNA (RT-PCR) 03/24/24 13:39 WBC RBC Hgb Hct MCV MCH MCHC RDW Plt Count MPV Immature Gran % (Auto) Neut % (Auto) Lymph % (Auto) [place] % (Auto) Eos % (Auto) Baso % (Auto) Lymph # (Auto) [place] # (Auto) Eos # (Auto) Baso # (Auto) Abs Immat Gran (auto) Absolute Neuts (auto) Absolute Nucleated RBC Nucleated RBC % PT INR APTT D-Dimer Sodium Potassium Chloride Carbon Dioxide Anion Gap BUN Creatinine Estim Creat Clear Calc Estimated GFR Glucose POC Capillary Glucose Calcium Magnesium Total Bilirubin AST ALT Alkaline Phosphatase Ammonia C-Reactive Protein Total Protein Albumin Vitamin B12 Beta-Hydroxybutyrate/Acetoacetate Procalcitonin Urine Color Urine Appearance Urine pH Ur Specific Martin Urine Protein Urine Glucose (UA) Urine Ketones Ur Blood (Man) Urine Nitrate Urine Bilirubin Urine Urobilinogen Add Ur Microanalysis Leukocyte Esterase Rfl Urine RBC Urine WBC Ur Squamous Epith Cells Urine Bacteria Urine Casts Urine Opiates Screen Positive A Urine Methadone Screen Negative Ur Barbiturates Screen Negative Ur Phencyclidine Scrn Negative Ur Amphetamine Screen Negative U Benzodiazepines Scrn Negative Urine Cocaine Screen Negative U Cannabinoids Screen Negative Influenza A (RT-PCR) Influenza B (RT-PCR) RSV (RT-PCR) SARS-CoV-2 RNA (RT-PCR) Quality VTE Prophylaxis VTE prophylaxis: pharmacologic ordered -Patient's previous records reviewed on admission -ER notes reviewed in detail on admission -discussed all findings and current treatment plan with patient/Family/POA -Consultations reviewed for recommendations -Patient's disposition for safe discharge discussed with case resource manager Dictation performed by [employer] direct speech recognition software, therefore microbiology quality control technician variants and typographical errors may occur. Hospitalist MIPS Advance Care Plan I have confirmed that the patient's Advanced Care Plan is present, code status is documented, or surrogate decision maker is listed in patient medical record.: Yes Medication Reconciliation I have utilized all available resources to obtain, update and review the patients current medications (includes all prescriptions, OTC, herbals, cannabis, and nutritional supplements).: Yes The patient is not eligible for med reconciliation; the patient is in a emergent medical situation where delaying treatment would jeopardize the patients health.: No
[2024-03-24 16:53] LABS: Glucose Point of Care 268 mg/dl (65-105)
[2024-03-24] MEDS: cefTRIAXone 2 GM/NS 100 ML 2 GM/100 ML BAG IVPB (18:08)
[2024-03-24] MEDS: AZITHROMYCIN 250 MG TABLET 500 MG PO (18:11)
[2024-03-24] MEDS: DONEPEZIL HCL 10 MG TABLET PO (20:32)
[2024-03-24] MEDS: DULoxetine HCL 30 MG CAPSULE.DR PO (20:33)
[2024-03-24] MEDS: guaiFENesin 12 HR 600 MG TABCR 1200 MG PO (20:38)
[2024-03-24] MEDS: MEMANTINE HCL XR 28 MG CAP PO (20:39)
[2024-03-24] MEDS: PREGABALIN (*CRX) 50 MG CAPSULE 200 MG PO (20:40)
[2024-03-24 21:28] LABS: Glucose Point of Care 342 mg/dl (65-105)
[2024-03-24] MEDS: IPRATROPIUM 0.5 MG/ALBUTEROL SULFATE 2.5 MG AMPUL.NEB 3 ML INHALATION (21:38)
[2024-03-24] MEDS: BENZOCAINE/MENTHOL (*BKC) 18 EA LOZENGE 1 LOZENGE PO (22:48)
[2024-03-25] VITALS (18 sets, daily range): BP systolic 155–187; BP diastolic 59–73; PULSE 74–100; RESP 14–18; TEMP 36.6–36.9; O2SAT 87–100
[2024-03-25] MEDS: cefTRIAXone 2 GM/NS 100 ML 2 GM/100 ML BAG IVPB ×2 (04:09→17:24)
--- NOTE | 2024-03-25 04:34 | PC.NURSE ---
DOCUMENTATION AND MEDICATION ADMINISTRATION PROVIDED BY GRADUATE NURSE AVANI HUTCHINS AND REVIEWED BY RN JESSE VALLE
[2024-03-25 07:28] LABS: Alanine Aminotransferase 25 U/L (6-35); Albumin Level 3.1 g/dL (3.5-5.1); Alkaline Phosphatase 105 U/L (38-126); Anion Gap 1 mmol/L (4-12); Aspartate Amino Transferase 35 U/L (14-36); Bilirubin,Total 0.7 mg/dL (0.2-1.3); Blood Urea Nitrogen 43 mg/dL (7-17); Calcium 9.5 mg/dL (8.4-10.2); Carbon Dioxide 26 mmol/L (22-30); Chloride 106 mmol/L (98-107); Estimated CRCL calculation 47 ml/min; Estimated Glomerular Filt Rate 34; Glucose 244 mg/dL (65-110); Potassium 5.3 mmol/L (3.4-5.0); Sodium 133 mmol/L (137-145)
[2024-03-25] MEDS: IPRATROPIUM 0.5 MG/ALBUTEROL SULFATE 2.5 MG AMPUL.NEB 3 ML INHALATION ×3 (08:25→22:36)
[2024-03-25 08:40] LABS: Glucose Point of Care 237 mg/dl (65-105)
--- NOTE | 2024-03-25 08:57 | PCPTNOTE ---
Attempt at 811, but was sleeping
[2024-03-25] MEDS: SODIUM ZIRCONIUM CYCLOSILICATE 10 GM POWD.PACK PO (09:01)
[2024-03-25] MEDS: MICONAZOLE NITRATE 2% CREAM 30 GM TUBE 1 APPLIC TOPICAL ×2 (09:01→17:27)
[2024-03-25] MEDS: APIXABAN 2.5 MG TABLET PO ×2 (09:02→20:22)
[2024-03-25] MEDS: METOPROLOL TARTRATE 50 MG TAB PO ×2 (09:02→20:23)
[2024-03-25] MEDS: FERROUS SULFATE 325 MG TABLET DR PO ×2 (09:02→17:24)
[2024-03-25] MEDS: QUEtiapine FUMARATE 100 MG TABLET PO ×2 (09:02→17:24)
[2024-03-25] MEDS: guaiFENesin 12 HR 600 MG TABCR 1200 MG PO ×2 (09:02→20:23)
[2024-03-25] MEDS: BENZTROPINE MESYLATE 0.5 MG TABLET PO ×3 (09:02→17:24)
[2024-03-25] MEDS: ACIDOPHILUS/BULGARICUS CHEWABLE TABLET 1 TABLET BY MOUTH (09:02)
[2024-03-25] MEDS: ATORVASTATIN 10 MG TABLET PO (09:03)
[2024-03-25] MEDS: ASPIRIN 81 MG ENTERIC TABLET PO ×2 (09:03→17:24)
[2024-03-25] MEDS: MULTIVITAMINS /C LUTEIN (CENTRUM SILVER) TABLET *BKC 1 TAB PO (09:03)
[2024-03-25] MEDS: BETAMETHASONE/CLOTRIMAZOLE CREAM 15 GM TUBE 1 APPLIC TOPICAL ×2 (09:04→20:24)
[2024-03-25] MEDS: INSULIN GLARGINE (*BKC) 100 UNITS/ML 35 UNITS SUB-Q ×2 (09:04→20:57)
[2024-03-25] MEDS: INSULIN ASPART (*BKC) 100 UNITS/ML SUB-Q ×4 (09:06→20:57)
[2024-03-25] MEDS: PREGABALIN (*CRX) 50 MG CAPSULE 100 MG PO ×2 (09:14→13:32)
[2024-03-25 09:40] LABS: Hematocrit 34.4 % (37.0-47.0); Hemoglobin 10.6 g/dL (12.0-15.0); Mean Corpuscular HGB Conc 30.8 g/dl (32-36); Mean Corpuscular Hemoglobin 31.5 pg (26-34); Mean Corpuscular Volume 102.4 fl (80-100); Mean Platelet Volume 10.9 fl (7.4-10.4); Platelet Count Result 167 k/mm3 (150-375); Red Blood Count 3.36 M/mm3 (4.2-5.4); Red Cell Distribution Width 16.9 % (11.5-14.5); White Blood Count 7.3 K/mm3 (4.5-10.0)
--- NOTE | 2024-03-25 12:14 | PC.NURSE ---
Patient resting in bed, blood draw in process. Patient alert and cooperative. RT recommends sleep study and patient falls asleep easily. Patient on 1L per NC per RT.
[2024-03-25 13:01] LABS: Glucose Point of Care 357 mg/dl (65-105)
--- NOTE | 2024-03-25 14:31 | P.PNIM_ITS ---
Progress Note: A&P Assessment and Plan (1) Respiratory failure with hypoxia: Code(s): J96.91 - Respiratory failure, unspecified with hypoxia Status: Acute Assessment and Plan: patient has history several admissions due to acute respiratory failure with hypoxia, does have history polysubstance abuse and was positive for opiates, also had history of MALIA however does not wear CPAP at night. patient did have productive cough a chest x-ray showed just atelectasis but did associated upper respiratory infection. * azithromycin/ Rocephin IV full coverage for also UTI * wean oxygen as tolerated to maintain 92% * order a home oxygen study * mucolytics * incentive spirometer * Duo nebulizers * recommended patient get sleep study outpatient would benefit from a CPAP at night * D-dimer was mildly elevated but will hold off on CTA due to patient's renal function she is currently on Eliquis do not feel this would meet criteria at this time * patient does take a few sedative medications such as Lyrica monitor mg daily as well as tramadol will need to educate on sedative affects 03/25/2024 * Still with episodes of hypoxia but recovers on 1L NC at 93% * will likely need a home o2 evaluation prior to discharge * wears CPAP at night for MALIA will order (2) Acute UTI: Code(s): N39.0 - Urinary tract infection, site not specified Status: Inactive Assessment and Plan: * UA showed 2+ protein, 2+ blood, 3+ leukocytes, 3-5 urine RBC, greater than 100 urine WBC, moderate urine squamous epithelial cells seen, 4+ bacteria. * Patient does have a chronic Vigil secondary to neurogenic bladder which was exchanged yesterday 03/23/2024 * Urine culture obtained is pending * most recent urine culture grew E coli sensitive to Rocephin * IV Rocephin pending cultures (3) Mild cognitive impairment with memory loss: Code(s): G31.84 - Mild cognitive impairment of uncertain or unknown etiology Status: Resolved Assessment and Plan: * resume patient's home medication Namzaric (4) Neurogenic bladder: Code(s): N31.9 - Neuromuscular dysfunction of bladder, unspecified Status: Acute Assessment and Plan: * chronic indwelling Vigil catheter changed on the emergency department (5) Diabetes mellitus with diabetic dermatitis, with long-term current use of insulin: Code(s): E11.620 - Type 2 diabetes mellitus with diabetic dermatitis; Z79.4 - [facility] (current) use of insulin Status: Acute Assessment and Plan: * Accu-Cheks a.c. HS * sliding scale insulin * hold oral diabetic medications * resume patient's home long-acting * Diabetic diet * Optimize Margarito inhibitors and statins. * Watch for hypoglycemia/hypoglycemic protocol ordered (6) Morbid obesity with BMI of 40.0-44.9, adult: Code(s): E66.01 - Morbid (severe) obesity due to excess calories; Z68.41 - Body mass index [BMI] 40.0-44.9, adult Status: Chronic Assessment and Plan: * encourage increased on physical activity and lifestyle modifications * BMI 46.5 * Diet exercise counseling done. * consult to dietitian (7) Chronic kidney disease due to diabetes mellitus: Code(s): E11.22 - Type 2 diabetes mellitus with diabetic chronic kidney disease Status: Acute Assessment and Plan: * Initial creatinine Close to baseline * Baseline creatinine 1.1-1.3, baseline EGFR 32-49 * Continue to trend labs * Will hold Lasix * Avoid nephrotoxins * renal dose antibiotics (8) Bilateral lower extremity edema: Code(s): R60.0 - Localized edema Status: Acute Assessment and Plan: 1 to 2+ pitting edema bilateral lower extremity * D-dimer was done and elevated * venous Dopplers pending * will resume patient's oral Lasix 03/25/24 * venous dopplers negative for DVT Plan Code status: Full code per patient DVT prophylaxis: Eliquis Stress ulcer prophylaxis: NA PT/OT notes: pending Disposition: patient continues admission for acute respiratory failure with hypoxia will treat for upper respiratory infection but likely secondary to polypharmacy with sedatives MALIA will continue to wean oxygen as tolerated plan for home walk study prior to discharge. PT OT has been ordered and pending for any further recommendations but likely plan is to return home with family. Time Spent With Patient Time with patient: 15 - 25 minutes Subjective Date/time seen: 03/25/24 14:31 Interval history: Patient is a 68 year old female admitted for acute respiratory failure with hypoxia likely secondary to URI, opiate dependency, UTI and MALIA. 03/25/2024: Assumed Care Patient denies still with episodes of hypoxia without oxygen, wears CPAP at night for MALIA. Still with some SOB and reports feeling aching and tired, cough improving. Denied SP, N/V, fever chills, urinary symptoms, or pain to BLE. Review of Systems Review of Systems: 12 systems were reviewed and are negativ e except for as per HPI. All systems reviewed & are unremarkable except as noted in HPI and below Exam Narrative: * GENERAL: Alert and oriented x 3 Pleasant obese female. No acute distress. * EYES: EOMI. No scleral icterus. PERRLA. * HEENT: Moist mucous membranes. * LUNGS:diminished auscultation bilaterally. No accessory muscle use. Productive cough * CARDIOVASCULAR: Regular rate and rhythm. No murmur. S1-S2 * ABDOMEN: Soft, non tenderness and non-distended, obese. No palpable masses. * EXTREMITIES: 2+ pitting edema BLE * SKIN: No rashes or lesions. Skin warm, dry. * NEUROLOGIC: No focal neurological deficits. CN II-XII grossly intact * PSYCHIATRIC: Appropriate mood and affect. Good judgement and insight. Objective Data Vital Signs Vital Signs: Vital Signs - 24 hr 03/24/24 15:28 03/24/24 16:00 03/24/24 20:00 Temperature 97.2 F L Pulse Rate 92 93 Respiratory Rate 16 Blood Pressure 164/69 H Pulse Oximetry 93 95 Oxygen Delivery Nasal Cannula Oxygen Flow Rate 2 Fraction of Inspired Oxygen 03/24/24 20:00 03/24/24 20:27 03/24/24 20:34 Temperature 97.3 F L Pulse Rate 108 H 108 H 108 H Respiratory Rate 16 Blood Pressure 149/60 H Pulse Oximetry 97 Oxygen Delivery Oxygen Flow Rate Fraction of Inspired Oxygen 03/24/24 21:39 03/24/24 21:45 03/24/24 21:49 Temperature Pulse Rate 86 86 83 Respiratory Rate 18 18 Blood Pressure Pulse Oximetry 95 Oxygen Delivery Nasal Cannula Oxygen Flow Rate 2 Fraction of Inspired Oxygen 28 03/25/24 00:00 03/25/24 04:00 03/25/24 06:23 Temperature 97.8 F Pulse Rate 81 74 77 Respiratory Rate 14 Blood Pressure 185/73 H Pulse Oximetry 100 Oxygen Delivery Oxygen Flow Rate Fraction of Inspired Oxygen 03/25/24 08:25 03/25/24 08:25 03/25/24 08:40 Temperature Pulse Rate 84 88 Respiratory Rate 18 18 Blood Pressure Pulse Oximetry 97 Oxygen Delivery Nasal Cannula Oxygen Flow Rate 2 Fraction of Inspired Oxygen 03/25/24 09:02 03/25/24 09:07 03/25/24 09:12 Temperature Pulse Rate 90 Respiratory Rate Blood Pressure Pulse Oximetry 87 L 93 Oxygen Delivery Room Air Nasal Cannula Oxygen Flow Rate 1 Fraction of Inspired Oxygen Intake/Output Intake/Output: Intake & Output 03/22/24 03/23/24 03/24/24 03/25/24 23:59 23:59 23:59 23:59 Intake Total 2350 1220 660 Output Total 1300 600 Balance 2350 -80 60 Meds/Results Medications: Active Medications Generic Name Dose Route Start Last Admin Trade Name Freq PRN Reason Stop Dose Admin Acetaminophen 650 mg 03/23/24 23:19 Acetaminophen 325 Mg Tablet PO Q6H PRN Mild Pain (1-3) or Fever Albuterol/Ipratropium 3 ml 03/24/24 14:00 03/25/24 08:25 Ipratropium 0.5 Mg/Albuterol Sulfate 2.5 Mg Ampul.Neb 3 Ml INHALATION 3 ml Q6HRT EMMIE Administration Apixaban 2.5 mg 03/23/24 23:25 03/25/24 09:02 Apixaban 2.5 Mg Tablet PO 2.5 mg Q12HR EMMIE Administration Aspirin 81 mg 03/24/24 09:00 03/25/24 09:03 Aspirin 81 Mg Enteric Tablet PO 81 mg BID EMMIE Administration Atorvastatin Calcium 10 mg 03/24/24 09:00 03/25/24 09:03 Atorvastatin 10 Mg Tablet PO 10 mg DAILY EMMIE Administration Azithromycin 500 mg 03/24/24 18:00 03/24/24 18:11 Azithromycin 250 Mg Tablet PO 500 mg Q24H EMMIE Administration Benzocaine 1 lozenge 03/24/24 22:42 03/24/24 22:48 Benzocaine/Menthol (*Bkc) 18 Ea Lozenge PO 1 lozenge PRN PRN Administration Sore Throat Benztropine Mesylate 0.5 mg 03/24/24 09:00 03/25/24 13:30 Benztropine Mesylate 0.5 Mg Tablet PO 0.5 mg TID EMMIE Administration Clonidine HCl 0.1 mg 03/24/24 09:00 Clonidine Hcl 0.1 Mg Tablet PO BID EMMIE Clotrimazole 1 applic 03/24/24 09:00 03/25/24 09:04 Betamethasone/Clotrimazole Cream 15 Gm Tube TOPICAL 1 applic Q12HR EMMIE Administration Dextrose 12.5 gm 03/23/24 23:19 Dextrose 50% 25 Gm/50 Ml Syringe IV PUSH PRN PRN Hypoglycemia Protocol Donepezil HCl 10 mg 03/24/24 21:00 03/24/24 20:32 Donepezil Hcl 10 Mg Tablet PO 10 mg HS EMMIE Administration Duloxetine HCl 30 mg 03/24/24 21:00 03/24/24 20:33 Duloxetine Hcl 30 Mg Capsule. PO 30 mg HS EMMIE Administration Ferrous Sulfate 325 mg 03/24/24 09:00 03/25/24 09:02 Ferrous Sulfate [address] PO 325 mg BID EMMIE Administration Glucagon 1 mg 03/23/24 23:19 Glucagon For Inj 1 Mg Vial IM PRN PRN Hypoglycemia Protocol Glucose 15 gm 03/23/24 23:19 Glucose Oral Gel 15 Gm Of Glucse In 37.5 Gm Tube PO PRN PRN Hypoglycemia Protocol Guaifenesin 1,200 mg 03/24/24 21:00 03/25/24 09:02 Guaifenesin 12 Hr 600 Mg Tabcr PO 1,200 mg Q12HR EMMIE Administration Dextrose 1,000 mls @ 100 mls/hr 03/23/24 23:19 Dextrose 5% 1,000 Ml IVPB PRN PRN Hypoglycemia Protocol Ceftriaxone Sodium 2 gm in 100 mls @ 200 mls/hr 03/24/24 17:00 03/25/24 05:50 Rocephin 2 Gm/Ns 100 Ml IVPB Infused Q12H EMMIE Infusion Insulin Aspart 4 - 8 units 03/24/24 08:00 03/25/24 13:30 Insulin Aspart (*Bkc) 100 Units/Ml SUB-Q 8 units TIDWM EMMIE Administration Protocol Insulin Aspart 2 - 4 units 03/24/24 21:00 03/24/24 20:45 Insulin Aspart (*Bkc) 100 Units/Ml SUB-Q 3 units HS EMMIE Administration Protocol Insulin Glargine 35 units 03/24/24 09:00 03/25/24 09:04 Insulin Glargine (*Bkc) 100 Units/Ml SUB-Q 35 units Q12HR EMMIE Administration Lactobacillus Acidophilus 1 tablet 03/24/24 09:00 03/25/24 09:02 Acidophilus/Bulgaricus Chewable Tablet BY MOUTH 1 tablet DAILY EMMIE Administration Memantine 28 mg 03/24/24 21:00 03/24/24 20:39 Memantine Hcl Xr 28 Mg Cap PO 04/23/24 20:59 28 mg HS EMMIE Administration Metoprolol Tartrate 50 mg 03/23/24 23:20 03/25/24 09:02 Metoprolol Tartrate 50 Mg Tab PO 50 mg Q12HR EMMIE Administration Miconazole Nitrate 1 applic 03/24/24 09:00 03/25/24 09:01 Miconazole Nitrate 2% Cream 30 Gm Tube TOPICAL 1 applic BID [facility] Administration Multivitamins/Minerals 1 tab 03/24/24 09:00 03/25/24 09:03 Multivitamins /C Lutein (Centrum Silver) Tablet *Bkc PO 1 tab DAILY EMMIE Administration Oxybutynin Chloride 5 mg 03/23/24 23:20 Oxybutynin Chloride Xl 5 Mg Tab.Er.24 PO DAILY PRN bladder spasms Pregabalin 100 mg 03/24/24 09:00 03/25/24 13:32 Pregabalin (*Crx) 50 Mg Capsule PO 100 mg 0900,1200 EMMIE Administration Pregabalin 200 mg 03/24/24 21:00 03/24/24 20:40 Pregabalin (*Crx) 50 Mg Capsule PO 200 mg HS [facility] Administration Quetiapine Fumarate 100 mg 03/24/24 09:00 03/25/24 09:02 Quetiapine Fumarate 100 Mg Tablet PO 100 mg BID EMMIE Administration Radiology Results: ITS Impressions Chest X-Ray 03/23/24 14:54 IMPRESSION: 1. Mild streaky atelectasis at the right mid and left lower lung zones. No other acute cardiopulmonary disease. Head CT 03/23/24 16:32 IMPRESSION: 1. No acute intracranial process. 2. Stable 1.8 cm extra-axial meningioma at the left cerebral pontine angle. 3. Mild scattered white matter hypoattenuation consistent with chronic small vessel ischemic disease. Venous Doppler Study 03/24/24 17:27 IMPRESSION: Negative bilateral lower extremity venous US. No deep vein thrombosis. Labs Labs: Laboratory Results - last 24 hr 03/24/24 03/24/24 03/24/24 05:56 16:50 20:30 WBC RBC Hgb Hct MCV MCH MCHC RDW Plt Count MPV Sodium Potassium Chloride Carbon Dioxide Anion Gap BUN Creatinine Estim Creat Clear Calc Estimated GFR Glucose POC Capillary Glucose 268 H 342 H Calcium Total Bilirubin AST ALT Alkaline Phosphatase Total Protein Albumin TSH (Reflex) 2.490 03/25/24 03/25/24 03/25/24 06:41 08:31 09:03 WBC 7.3 RBC 3.36 L Hgb 10.6 L Hct 34.4 L MCV 102.4 H MCH 31.5 MCHC 30.8 L RDW 16.9 H Plt Count 167 MPV 10.9 H Sodium 133 L Potassium 5.3 H Chloride 106 Carbon Dioxide 26 Anion Gap 1 L BUN 43 H Creatinine 1.50 H Estim Creat Clear Calc 47 Estimated GFR 34 L Glucose 244 H POC Capillary Glucose 237 H Calcium 9.5 Total Bilirubin 0.7 AST 35 ALT 25 Alkaline Phosphatase 105 Total Protein 7.0 Albumin 3.1 L TSH (Reflex) 03/25/24 12:40 WBC RBC Hgb Hct MCV MCH MCHC RDW Plt Count MPV Sodium Potassium Chloride Carbon Dioxide Anion Gap BUN Creatinine Estim Creat Clear Calc Estimated GFR Glucose POC Capillary Glucose 357 H Calcium Total Bilirubin AST ALT Alkaline Phosphatase Total Protein Albumin TSH (Reflex) Quality VTE Prophylaxis VTE prophylaxis: pharmacologic ordered -Patient's previous records reviewed on admission -ER notes reviewed in detail on admission -discussed all findings and current treatment plan with patient/Family/POA -Consultations reviewed for recommendations -Patient's disposition for safe discharge discussed with manager case Dictation performed by [email or web address] direct speech recognition software, therefore retirement assistant variants and typographical errors may occur. Hospitalist MIPS Advance Care Plan I have confirmed that the patient's Advanced Care Plan is present, code status is documented, or surrogate decision maker is listed in patient medical record.: Yes Medication Reconciliation I have utilized all available resources to obtain, update and review the patients current medications (includes all prescriptions, OTC, herbals, cannabis, and nutritional supplements).: Yes The patient is not eligible for med reconciliation; the patient is in a emergent medical situation where delaying treatment would jeopardize the patients health.: No
[2024-03-25 14:38] LABS: Anion Gap 1 mmol/L (4-12); Blood Urea Nitrogen 41 mg/dL (7-17); Calcium 9.4 mg/dL (8.4-10.2); Carbon Dioxide 32 mmol/L (22-30); Chloride 102 mmol/L (98-107); Estimated CRCL calculation 44 ml/min; Estimated Glomerular Filt Rate 32; Glucose 335 mg/dL (65-110); Sodium 135 mmol/L (137-145)
[2024-03-25 17:22] LABS: Glucose Point of Care 256 mg/dl (65-105)
[2024-03-25] MEDS: AZITHROMYCIN 250 MG TABLET 500 MG PO (17:24)
[2024-03-25] MEDS: PREGABALIN (*CRX) 50 MG CAPSULE 200 MG PO (20:22)
[2024-03-25] MEDS: DULoxetine HCL 30 MG CAPSULE.DR PO (20:22)
[2024-03-25 20:23] LABS: Glucose Point of Care 306 mg/dl (65-105)
[2024-03-25] MEDS: DONEPEZIL HCL 10 MG TABLET PO (20:23)
[2024-03-25] MEDS: MEMANTINE HCL XR 28 MG CAP PO (20:23)
[2024-03-26] VITALS (16 sets, daily range): BP systolic 165; BP diastolic 65; PULSE 68–107; RESP 15–20; TEMP 36.7; O2SAT 95–98; BMI 46.9
[2024-03-26] MEDS: IPRATROPIUM 0.5 MG/ALBUTEROL SULFATE 2.5 MG AMPUL.NEB 3 ML INHALATION ×3 (02:33→15:00)
[2024-03-26] MEDS: cefTRIAXone 2 GM/NS 100 ML 2 GM/100 ML BAG IVPB (05:08)
[2024-03-26 05:41] LABS: Hematocrit 33.4 % (37.0-47.0); Hemoglobin 10.4 g/dL (12.0-15.0); Mean Corpuscular HGB Conc 31.1 g/dl (32-36); Mean Corpuscular Hemoglobin 31.9 pg (26-34); Mean Corpuscular Volume 102.5 fl (80-100); Mean Platelet Volume 10.6 fl (7.4-10.4); Platelet Count Result 168 k/mm3 (150-375); Red Blood Count 3.26 M/mm3 (4.2-5.4); Red Cell Distribution Width 16.9 % (11.5-14.5); White Blood Count 6.3 K/mm3 (4.5-10.0)
[2024-03-26 05:54] LABS: Alanine Aminotransferase 28 U/L (6-35); Albumin Level 3.2 g/dL (3.5-5.1); Alkaline Phosphatase 111 U/L (38-126); Anion Gap 1 mmol/L (4-12); Aspartate Amino Transferase 31 U/L (14-36); Bilirubin,Total 0.4 mg/dL (0.2-1.3); Blood Urea Nitrogen 35 mg/dL (7-17); Calcium 9.2 mg/dL (8.4-10.2); Carbon Dioxide 32 mmol/L (22-30); Chloride 105 mmol/L (98-107); Estimated CRCL calculation 50 ml/min; Estimated Glomerular Filt Rate 37; Glucose 208 mg/dL (65-110); Potassium 3.9 mmol/L (3.4-5.0); Sodium 138 mmol/L (137-145)
[2024-03-26 08:14] LABS: Glucose Point of Care 230 mg/dl (65-105)
--- NOTE | 2024-03-26 08:34 | P.DS_ITS ---
DS: Admitting Diagnosis Discharge Date 03/26/2024 Admitting Diagnosis Acute respiratory failure with hypoxia DS: Discharge Diagnosis Discharge Diagnosis (1) Respiratory failure with hypoxia: Code(s): J96.91 - Respiratory failure, unspecified with hypoxia Status: Acute Assessment and Plan: patient has history several admissions due to acute respiratory failure with hypoxia, does have history polysubstance abuse and was positive for opiates, also had history of MALIA however does not wear CPAP at night. patient did have productive cough a chest x-ray showed just atelectasis but did associated upper respiratory infection. * azithromycin/ Rocephin IV full coverage for also UTI * wean oxygen as tolerated to maintain 92% * order a home oxygen study * mucolytics * incentive spirometer * Duo nebulizers * recommended patient get sleep study outpatient would benefit from a CPAP at night * D-dimer was mildly elevated but will hold off on CTA due to patient's renal function she is currently on Eliquis do not feel this would meet criteria at this time * patient does take a few sedative medications such as Lyrica monitor mg daily as well as tramadol will need to educate on sedative affects 03/25/2024 * Still with episodes of hypoxia but recovers on 1L NC at 93% * will likely need a home o2 evaluation prior to discharge * wears CPAP at night for MALIA will order (2) Mild cognitive impairment with memory loss: Code(s): G31.84 - Mild cognitive impairment of uncertain or unknown etiology Status: Resolved Assessment and Plan: * resume patient's home medication Namzaric (3) Neurogenic bladder: Code(s): N31.9 - Neuromuscular dysfunction of bladder, unspecified Status: Acute Assessment and Plan: * chronic indwelling Vigil catheter changed on the emergency department (4) Diabetes mellitus with diabetic dermatitis, with long-term current use of insulin: Code(s): E11.620 - Type 2 diabetes mellitus with diabetic dermatitis; Z79.4 - joint terminal attack controller (current) use of insulin Status: Acute Assessment and Plan: * Accu-Cheks a.c. HS * sliding scale insulin * hold oral diabetic medications * resume patient's home long-acting * Diabetic diet * Optimize Margarito inhibitors and statins. * Watch for hypoglycemia/hypoglycemic protocol ordered (5) Morbid obesity with BMI of 40.0-44.9, adult: Code(s): E66.01 - Morbid (severe) obesity due to excess calories; Z68.41 - Body mass index [BMI] 40.0-44.9, adult Status: Chronic Assessment and Plan: * encourage increased on physical activity and lifestyle modifications * BMI 46.5 * Diet exercise counseling done. * consult to dietitian (6) Chronic kidney disease due to diabetes mellitus: Code(s): E11.22 - Type 2 diabetes mellitus with diabetic chronic kidney disease Status: Acute Assessment and Plan: * Initial creatinine Close to baseline * Baseline creatinine 1.1-1.3, baseline EGFR 32-49 * Continue to trend labs * Will hold Lasix * Avoid nephrotoxins * renal dose antibiotics (7) Bilateral lower extremity edema: Code(s): R60.0 - Localized edema Status: Acute Assessment and Plan: 1 to 2+ pitting edema bilateral lower extremity * D-dimer was done and elevated * venous Dopplers pending * will resume patient's oral Lasix 03/25/24 * venous dopplers negative for DVT Plan Disposition: Discharged to home DS: Summary Hospital Course Reason for hospitalization: Acute respiratory failure with hypoxia secondary to URI and polypharmacy Hospital Course: Admission: Medical chart Patient was a 66-year-old female with history of dementia with behavior disturbances, depression with psychosis with history of psychiatric placement with suicidal ideation, poorly controlled insulin-dependent type 2 diabetes mellitus, obstructive sleep apnea/obesity hypoventilation syndrome, neurogenic bladder with chronic indwelling catheter, chronic pain syndrome with chronic opi oid dependence, chronic benzodiazepine use, and other comorbidities who presented to the emergency department with multiple complaints. The patient provides the following history. She had not been feeling well for a couple of weeks with multiple symptoms including fatigue, malaise, headache, ear pain, nonproductive cough, shortness of breath with activity, and poor appetite for a couple of weeks. In the ED: She was afebrile on arrival. SpO2 was 87% on room air, currently on 2 L. Blood pressures have been running high, in the 170s to 180 systolic. Labs are significant for WBC count of 8.2, hemoglobin 12.8, MCV 100.5, sodium 134, carbon dioxide 35, BUN 54, creatinine 1.90, glucose 337, calcium 11.1. Urinalysis was positive for 3+ glucose, 3+ leukocyte esterase, greater than 100 WBC, and 2+ bacteria. She tested negative for influenza, RSV, and COVID. Brain CT showed no acute findings with a stable meningioma. Chest x-ray showed mild streaky atelectasis at the right mid and left lower lung zones. She was given a dose of azithromycin and ceftriaxone in addition to 2 L lactated Ringer's and she is being admitted in this setting due to her oxygen requirement. Discharge: Patient productive cough improved with treatment of Duonebs, guaifenesin, CPAP at night and reduction of sedative medications. Continued to wean patient from oxygen and she was maintaining an O2 sat greater than 92%. During stay and upon discharged educated patient on polypharmacy and numerous sedative medications she was currently on that can cause respiratory depression. I did reduce her Lyrica and and sequel and recommended limited narcotic use. She was also recommended to see a online merchandising specialist. A home oxygen study was performed and she did not meet criteria for supplemental oxygen, reinforced the importance of using her CPAP at night. UA had been performed and showed evidence of urinary tract infection, her catheter had been exchanged in the ED. Patient seen and assesed day of discharge with overall improvement to respiratory status, alert and oriented and reported feeling back to baseline. She was discharged back to home with family Status at Discharge Functional status at discharge: uses cane/walker Overall status at discharge: patient is back to baseline Time Spent with Patient Time attestation: Total time spent providing and/or coordinating discharge services: Time spent: Greater than 30 minutes Exam Narrative: * GENERAL: Alert and oriented x 3 Pleasant obese female. No acute distress. * EYES: EOMI. No scleral icterus. PERRLA. * HEENT: Moist mucous membranes. * LUNGS:diminished auscultation bilaterally. No accessory muscle use. Productive cough * CARDIOVASCULAR: Regular rate and rhythm. No murmur. S1-S2 * ABDOMEN: Soft, non tenderness and non-distended, obese. No palpable masses. * EXTREMITIES: 2+ pitting edema BLE * SKIN: No rashes or lesions. Skin warm, dry. * NEUROLOGIC: No focal neurological deficits. CN II-XII grossly intact * PSYCHIATRIC: Appropriate mood and affect. Good judgement and insight. DS: Data Data Completed and Pending Labs on day of discharge: Labs from last 24 hours 03/26/24 03/26/24 03/25/24 07:51 05:09 19:43 WBC 6.3 RBC 3.26 L Hgb 10.4 L Hct 33.4 L MCV 102.5 H MCH 31.9 MCHC 31.1 L RDW 16.9 H Plt Count 168 MPV 10.6 H Sodium 138 Potassium 3.9 Chloride 105 Carbon Dioxide 32 H Anion Gap 1 L BUN 35 H Creatinine 1.40 H Estim Creat Clear Calc 50 Estimated GFR 37 L Glucose 208 H POC Capillary Glucose 230 H 306 H Calcium 9.2 Total Bilirubin 0.4 AST 31 ALT 28 Alkaline Phosphatase 111 Total Protein 6.0 L Albumin 3.2 L 03/25/24 03/25/24 03/25/24 16:57 14:22 12:40 WBC RBC Hgb Hct MCV MCH MCHC RDW Plt Count MPV Sodium 135 L Potassium 5.0 Chloride 102 Carbon Dioxide 32 H Anion Gap 1 L BUN 41 H Creatinine 1.60 H Estim Creat Clear Calc 44 Estimated GFR 32 L Glucose 335 H POC Capillary Glucose 256 H 357 H Calcium 9.4 Total Bilirubin AST ALT Alkaline Phosphatase Total Protein Albumin 03/25/24 03/25/24 09:03 08:31 WBC 7.3 RBC 3.36 L Hgb 10.6 L Hct 34.4 L MCV 102.4 H MCH 31.5 MCHC 30.8 L RDW 16.9 H Plt Count 167 MPV 10.9 H Sodium Potassium Chloride Carbon Dioxide Anion Gap BUN Creatinine Estim Creat Clear Calc Estimated GFR Glucose POC Capillary Glucose 237 H Calcium Total Bilirubin AST ALT Alkaline Phosphatase Total Protein Albumin Preliminary micro results at discharge 03/23/24 16:56 Blood Culture - Preliminary Blood 03/23/24 16:16 Blood Culture - Preliminary Blood Imaging Radiologist's impression: Radiology Results: ITS Impressions Chest X-Ray 03/23/24 14:54 IMPRESSION: 1. Mild streaky atelectasis at the right mid and left lower lung zones. No other acute cardiopulmonary disease. Head CT 03/23/24 16:32 IMPRESSION: 1. No acute intracranial process. 2. Stable 1.8 cm extra-axial meningioma at the left cerebral pontine angle. 3. Mild scattered white matter hypoattenuation consistent with chronic small vessel ischemic disease. Discharge Plan Discharge Attending physician on discharge: Ramin Lacey Consulting providers: Pooja Hernandez; Jett Levine; Juvenal Dempsey; Merritt Candelario Discharging Clinician: Kaleigh Oneal Anticipated Discharge Date/Time: 03/26/24 07:58 Patient Disposition: Home Health Service Activity: may shower, unlimited and as tolerated Diet: heart healthy Discharge Instructions: Per Care Coordination, patient to discharge with [employer] ) for PT/ OT ad intermediate services. Please fax discharge instructions and medication sheets to [phone]. You were evaluated and treated for hypoxia (Low oxygen levels) and upper respiratory infection. * I have prescribed oral antibiotic please take as prescribed and complete even if feeling better * You are on multiple sedative agents that can cause episodes of hypoxia I recommend to continuing weaning. * I have decreased your Lyrica night dose to 100 mg and decreased your Seroquel to 50 mg BID * We performed an oxygen study and you do not require any supplemental oxygen at this time * Continue to wear CPAP at home would recommend follow up MALIA testing and PFT test encourage F/U with a online merchandising specialist * Initially you were treated for UTI but that has been ruled out with bacteria that grew on culture * Continue urine catheter care including hygiene and exchanges as scheduled to reduce risk of UTI's How can you care for yourself at home? ? Keep track of any new symptoms or changes in your symptoms. ? Rest until you feel better. ? Be safe with medicines. Take your medicines exactly as prescribed. Call your doctor if you think you are having a problem with your medicine. ? Do not drive after taking a prescription pain medicine. ? Ensure to follow-up with primary care physician as indicated and provide updated medication list provided to you at discharge. When should you call for help? Call 911 anytime you think you may need emergency care. For example, call if: ? You passed out (lost consciousness). Call your doctor now or seek immediate medical care if: ? You have new symptoms like fever, difficulty breathing, Chest pain, vomiting, or rash. ? You have new or different pain. ? You are confused and are having trouble thinking clearly. ? Your symptoms are getting worse. Watch closely for changes in your health, and be sure to contact your doctor if: ? You do not get better as expected. Patient Instructions: Antibiotic Form, Apixaban (By mouth), Sleep Apnea (GEN), Vigil Catheter Placement and Care (DC), Hypoxia (GEN), CPAP (GEN), Safe Use of Anticoagulants (GEN) Patient Language: German Stand Alone Forms: General Discharge Information Follow-up/Referrals: Javy Monsivais MD [Primary Care Provider] - 4 Weeks Discharge Medications: New azithromycin [Zithromax] 250 mg Tablet 500 mg PO Q24H Qty: 3 0RF guaifenesin [Mucus Relief ER] 600 mg Tablet Extended Release 12hr 1,200 mg PO Q12HR Qty: 14 0RF pregabalin 100 mg capsule 100 mg PO HS Qty: 30 0RF quetiapine 50 mg tablet 50 mg PO BID Qty: 60 0RF Continued acetaminophen [Tylenol Extra Strength] 500 mg tablet 1,000 mg PO BID ferrous sulfate 325 mg (65 mg iron) tablet 325 mg PO BID nystatin 100,000 unit/gram cream 1 applic topical BID lactobacillus combination no.9 [Adult 50 Plus Probiotic] 1 cap PO DAILY aspirin 81 mg tablet,delayed release (DR/EC) 81 mg PO BID clotrimazole-betamethasone 1-0.05 % Cream 1 applic TOPICAL BID Rx Instructions: APPLY TO BUTTOCKS Clear Fiber 3 gram/4 gram Powder 2 tsp PO TID PRN (Reason: Constipation) Namzaric 28-10 mg capsule,sprinkle,ER 24hr 1 cap PO HS pregabalin 100 mg capsule 100 mg PO BID Rx Instructions: am and noon oxybutynin chloride 5 mg tablet extended release 24hr 5 mg PO DAILY PRN (Reason: bladder spasms) insulin glargine [Basaglar KwikPen U-100 Insulin] 100 unit/mL (3 mL) insulin pen 35 unit subcut BID Adults Multivitamin 18 mg iron-400 mcg-25 mcg Tablet 1 tablet PO DAILY benztropine 0.5 mg tablet 0.5 mg PO TID atorvastatin 10 mg tablet 10 mg PO DAILY duloxetine 30 mg capsule,delayed release(DR/EC) 30 mg PO HS lactulose 10 gram/15 mL solution 15 ml PO BID PRN (Reason: Constipation) metoprolol tartrate 50 mg tablet 50 mg PO Q12H cholecalciferol (vitamin D3) 1,250 mcg (50,000 unit) tablet 1,250 mcg PO WEEKLY Qty: 12 3RF Rx Instructions: every tuesday Eliquis 2.5 mg tablet 2.5 mg PO BID Qty: 60 3RF clonidine HCl 0.1 mg tablet 0.1 mg PO BID Qty: 180 0RF Rx Instructions: TAKE 1 TABLET BY MOUTH TWICE DAILY. MAY REPEAT EVERY 1 HOUR. NOT TO EXCEED 0.7 MG(7 TABLETS) PER 24 HOURS Trulicity 3 mg/0.5 mL pen injector 3 mg subcut WEEKLY Qty: 2 3RF Rx Instructions: FRIDAYS Changed tramadol 50 mg tablet 50 mg PO BID PRN (Reason: pain) Qty: 60 0RF Discontinued pregabalin 200 mg capsule 200 mg PO HS quetiapine 200 mg tablet 100 mg PO BID Qty: 180 0RF No Action furosemide 40 mg tablet See Rx Instructions .ROUTE .COMPLEX Qty: 90 0RF Dose Instruction: TAKE 1 TABLET BY MOUTH EVERY MORNING Rx Instructions: TAKE 1 TABLET BY MOUTH EVERY MORNING (DME) FreeStyle Mohan 3 Sensor Device See Rx Instructions .Route Qty: 1 5RF Rx Instructions: As directed (DME) FreeStyle Mohan 3 [place] Misc See Rx Instructions .Route Qty: 1 0RF Rx Instructions: As directed Date of admission: 03/23/24 17:14 Primary Care Provider: Javy Monsivais Admitting Provider: Chuck Orozco Attending physician on admission: Kaleigh Oneal Condition: Stable Quality VTE Prophylaxis VTE prophylaxis: pharmacologic ordered -Patient's previous records reviewed on admission -ER notes reviewed in detail on admission -discussed all findings and current treatment plan with patient/Family/POA -Consultations reviewed for recommendations -Patient's disposition for safe discharge discussed with pillowcase maker Dictation performed by [employer] direct speech recognition software, therefore nut dehydrator operator variants and typographical errors may occur. Hospitalist MIPS Heart Failure (Exclusion) Patient has history of Heart Transplant or Left Ventricular Assistive Device?: No IF YES, STOP HERE Heart Failure (Qualifier) Patient has current or prior documentation of LVEF less than or equal to 40%, or mod/servere depressed LVSF?: No IF NO, STOP HERE
[2024-03-26] MEDS: INSULIN ASPART (*BKC) 100 UNITS/ML SUB-Q ×2 (09:56→13:15)
[2024-03-26] MEDS: BENZTROPINE MESYLATE 0.5 MG TABLET PO ×2 (09:57→13:16)
[2024-03-26] MEDS: QUEtiapine FUMARATE 100 MG TABLET PO (09:57)
[2024-03-26] MEDS: ASPIRIN 81 MG ENTERIC TABLET PO (09:57)
[2024-03-26] MEDS: ATORVASTATIN 10 MG TABLET PO (09:57)
[2024-03-26] MEDS: ACIDOPHILUS/BULGARICUS CHEWABLE TABLET 1 TABLET BY MOUTH (09:57)
[2024-03-26] MEDS: APIXABAN 2.5 MG TABLET PO (09:57)
[2024-03-26] MEDS: METOPROLOL TARTRATE 50 MG TAB PO (09:57)
[2024-03-26] MEDS: INSULIN GLARGINE (*BKC) 100 UNITS/ML 35 UNITS SUB-Q (09:57)
[2024-03-26] MEDS: guaiFENesin 12 HR 600 MG TABCR 1200 MG PO (09:57)
[2024-03-26] MEDS: FERROUS SULFATE 325 MG TABLET DR PO (09:59)
[2024-03-26] MEDS: MULTIVITAMINS /C LUTEIN (CENTRUM SILVER) TABLET *BKC 1 TAB PO (09:59)
[2024-03-26] MEDS: MICONAZOLE NITRATE 2% CREAM 30 GM TUBE 1 APPLIC TOPICAL (10:04)
[2024-03-26] MEDS: BETAMETHASONE/CLOTRIMAZOLE CREAM 15 GM TUBE 1 APPLIC TOPICAL (10:05)
[2024-03-26] MEDS: PREGABALIN (*CRX) 50 MG CAPSULE 100 MG PO ×2 (10:10→13:16)
--- NOTE | 2024-03-26 10:58 | PCRCNOTE ---
Home O2 eval complete. Patient does not require Home O2 at this time.
[2024-03-26 12:49] LABS: Glucose Point of Care 249 mg/dl (65-105)
== END 2024-03-26 16:30 | disposition home health service (06) | DRG 189 ==
LOC: ANHED 13:32 → ANH3MEDSUR 18:20 → ANH2MED 19:58
PROVIDERS: Physician Assistant; Admitting Provider Internal Medicine; Emergency Provider Student in an Organized Health Care Education/Training Program; PCP Family Medicine; Visit Provider Nurse Practitioner Family
DX: J96.01 Acute respiratory failure with hypoxia (principal); F11.20 Opioid dependence, uncomplicated; F03.918 Unspecified dementia, unspecified severity, with other behavioral disturbance; F32.3 Major depressive disorder, single episode, severe with psychotic features; Z68.42 Body mass index [BMI] 45.0-49.9, adult; J06.9 Acute upper respiratory infection, unspecified; G47.33 Obstructive sleep apnea (adult) (pediatric); T42.6X5A Adverse effect of other antiepileptic and sedative-hypnotic drugs, initial encounter; T50.995A Adverse effect of other drugs, medicaments and biological substances, initial encounter; N31.9 Neuromuscular dysfunction of bladder, unspecified; I12.9 Hypertensive chronic kidney disease with stage 1 through stage 4 chronic kidney disease, or unspecified chronic kidney disease; E11.22 Type 2 diabetes mellitus with diabetic chronic kidney disease; N18.30 Chronic kidney disease, stage 3 unspecified; E03.9 Hypothyroidism, unspecified; E83.52 Hypercalcemia; E86.0 Dehydration; E78.2 Mixed hyperlipidemia; E11.620 Type 2 diabetes mellitus with diabetic dermatitis; E11.42 Type 2 diabetes mellitus with diabetic polyneuropathy; E66.01 Morbid (severe) obesity due to excess calories; Z20.822 Contact with and (suspected) exposure to COVID-19; Z86.711 Personal history of pulmonary embolism; Z79.4 Long term (current) use of insulin; Z79.82 Long term (current) use of aspirin
CPT/HCPCS: 36415; 70450; 71045; 80048; 80053; 80307; 81001; 82010; 82140; 82607; 82803; 82948; 83735; 84145; 84443; 85025; 85027; 85380; 85610; 85730; 86140; 87040; 87086; 87637; 93005; 93970; 94618; 94640; 96361; 96365; 97161; 97165; 97535; 99285; A9270; J0456; J0696; J1815; J7030; J7120

== ENCOUNTER 2024-04-17 08:25 | Outpatient (CLI) | payer MEDICARE, OTHER, SELFPAY ==
--- NOTE | ~2024-04-17 | MR_ITS ---
MRI of the left shoulder Technique: Axial proton-density fat-sat images, coronal proton density fat-sat and T2 fat-sat images, and sagittal T1-weighted and T2 fat-sat images were acquired. Clinical History: Pain Findings: There is moderate to severe AC joint degenerative change, bony productive change at the dis jordan clavicle and acromion. Small subacromial spur present. Coracoclavicular, coracoacromial, and tomime cohumeral ligaments probably are intact. There is moderate to severe supraspinatus and infraspinatus tendinosis. There is a 0.8 x 0.8 cm full- thickness tear at the anterior, distal supraspinatus tendon insertion region. Subscapularis tendon is intact. Tendon of the long head of the biceps is intact. There is probable extensive degenerative labral tearing, especially along the posterior inferior to p osterior aspect of the labrum. There is diffuse high-grade chondromalacia of the glenohumeral joint. There are small glenohumeral laverne int effusion. There are small inferomedial humeral head osteophyte. There is mild fluid in the subacr omial/subdeltoid bursa. No muscle atrophy or edema evident. Impression: 0.8 x 0.8 cm full-thickness tear at the anterior, distal supraspinatus tendon insertion. Background r otator cuff tendinosis, as above. Probable extensive degenerative labral tearing, especially on the posterior inferior to posterior asp ect. Moderate to severe AC joint degenerative change. Mild glenohumeral joint degenerative change. Reviewed, dictated and finalized at location . [employer]IDERY CUTTER Impression: 0.8 x 0.8 cm full-thickness tear at the anterior, distal supraspinatus tendon i nsertion. Background rotator cuff tendinosis, as above. Probable extensive degenerative labral tearing, especially on the posterior inf erior to posterior aspect. Moderate to severe AC joint degenerative change. Mild glenohumeral joint degenerative change.
== END 2024-04-17 08:26 | disposition home or self-care (01) ==
LOC: MICIMG 08:26
PROVIDERS: PCP Family Medicine; Visit Provider Nurse Practitioner Family
DX: M19.012 Primary osteoarthritis, left shoulder (principal)
CPT/HCPCS: 73221

== ENCOUNTER 2024-04-27 10:40 | Outpatient (CLI) | payer MEDICARE, OTHER, SELFPAY ==
[2024-04-27 11:07] LABS: Hemoglobin A1C 10.4 % (<5.7)
--- OUTSIDE RECORDS SUMMARY | 2024-04-27 11:21 | XMS_ITS | Clinical Summary ---
Author Organization [facility] Address [facility] [place] [address] Care Team Providers Care Regulator Inspector Name Role Phone Carol Staples MD Primary Care Provider Allergies Active Allergy Reactions Criticality Noted Date Comments Divalproex Rash Medium 09/02/2020 Duloxetine Nausea only Low 04/15/2021 Iodinated Contrast Media Rash Medium 09/07/2021 Linezolid Unknown Low 04/15/2021 Vancomycin Hives,Rash Medium Medications atorvastatin (LIPITOR) 10 mg tabletIndications :hyperlipidemia Take 1 tablet (10 mg total) by mouth every morning 1 Active benztropine (COGENTIN) 0.5 mg tabletIndications :dementia Take 1 tablet (0.5 mg total) by mouth 3 (three) times a day 1 Active lactulose 0.67 gram/mL solutionIndicatio ns:constipation Take 15-30 mL (10-20 g total) by mouth 3 (three) times a day 1 Active metoprolol tartrate (LOPRESSOR) 50 mg immediate release tabletIndications :hypertension Take 1 tablet (50 mg total) by mouth 2 (two) times a day 1 Active Namzaric 28-10 mg capsule,sprinkle, ER 24hr extended release capsuleIndication s:Moderate to Severe Alzheimer's Type Dementia Take 1 capsule by mouth nightly 1 Active QUEtiapine (SEROquel) 200 mg tabletIndications :Generalized Anxiety Disorder Take 1 tablet (200 mg total) by mouth 2 (two) times a day 1 Active Linzess 290 mcg capsuleIndication s:chronic idiopathic constipation Take 1 capsule (290 mcg total) by mouth every morning 1 Active Lactobacillus acidophilus (PROBIOTIC ORAL)Indications: supplement Take 1 tablet by mouth nightly Active multivitamin capsuleIndication s:Vitamin Deficiency Prevention Take 1 capsule by mouth every morning Active aspirin 81 mg enteric coated tablet Take 1 tablet (81 mg total) by mouth 2 (two) times a day 28 tablet 2 Active cloNIDine (CATAPRES) 0.1 mg tabletIndications :hypertension Take 1 tablet (0.1 mg total) by mouth 3 (three) times a day 2 Active cholecalciferol (VITAMIN D-3) 50,000 unit capsuleIndication s:Vitamin D Deficiency Take 1 capsule (50,000 Units total) by mouth once a week Sundays 2 Active apixaban (ELIQUIS) 2.5 mg tabletIndications :VTE Prophylaxis 1 tablet (2.5 mg total) every morning Active Accu-Chek Lizabeth Plus test strp strip 3 Active Accu-Chek Softclix Lancets lancets USE TO CHECK BLOOD SUGAR TWICE DAILY 3 Active nystatin-triamcin olone ointment APPLY TOPICALLY THREE TIMES DAILY TO AFFECTED AREA ON FEET AND ABDOMEN 3 Active Trulicity 4.5 mg/0.5 mL pen injector 3 Active Unifine Pentips Plus 31 gauge x 5/16 needle USE FIVE TIMES DAILY 3 Active acetaminophen (Tylenol Extra Strength) 500 mg tablet Take 1 tablet (500 mg total) by mouth 2 (two) times a day [address] (CYMBALTA) 30 mg capsule 2 Active pregabalin (LYRICA) 200 mg capsule 3 Active ferrous sulfate (iron) 325 mg (65 mg of elemental iron) tablet 3 Active cefdinir (OMNICEF) 300 mg capsule Take 1 capsule (300 mg total) by mouth every 12 (twelve) hours 4 Active levoFLOXacin (LEVAQUIN) 500 mg tablet TAKE 1 TABLET BY MOUTH DAILY FOR 7 DAYS 4 Active BASAGLAR 100 unit/mL (3 mL) pen for injection 4 Active furosemide (LASIX) 40 mg tablet 4 Active fluconazole (DIFLUCAN) 150 mg tablet Take by mouth once 4 Active traMADoL (ULTRAM) 50 mg tablet 4 Active Active Problems Problem Noted Date Diagnosed Date Acute kidney failure, unspecified 09/27/2023 Acute respiratory failure with hypoxia (CMS/HCC) 09/27/2023 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 Infection and inflammatory r eaction due to indwelling urethral catheter, initial encounter 09/27/2023 Dorsalgia, unspecified 09/27/2023 Diarrhea, unspecified 09/27/2023 Convulsions 09/27/2023 Chronic kidney disease, unspecified 09/27/2023 Pain in left knee 09/27/2023 Syncope and collapse 09/27/2023 Unspecified fall, initial encounter 09/27/2023 Anemia in stage 3 chronic kidney disease 022 Migration of suprapubic catheter 09/03/2021 Urinary tract infection with hematuria 2 Right tibial fracture 05/15/2021 Closed fracture of part of fibula 05/15/2021 Overview (05/15/2021): Added automatically from request for surgery [id number] Closed displaced fracture of medial malleolus of right tibia 05/15/2021 Overview (05/25/2021): Added automatically from request for surgery [id number] Neurogenic bladder 04/17/2021 Overview (04/17/2021): Added automatically from request for surgery [id number] Assessment & Plan (09/03/2021 9:34 PM CDT): -Due to severe abdominal pain and low urine output in SP bag, we decided to exchange SP catheter. -The appearance of the urine in the catheter bag is yellow. 30 mL normal saline instilled into catheter prior to removal. Balloon was completely deflated and the 16 Fr suprapubic catheter discontinued without issue. The balloon appeared intact. -Patient s skin was prepped with betadine. Using sterile technique, new 18 Fr silicone suprapubic catheter was placed. Urine return was noted; however, only appeared to be approximately 50 mL returned. We noted possible issue with balloon so this catheter was discontinued without inflating balloon. Another 16 Fr catheter was placed again noting only small amount of urine return. Patient continued to c/o severe abdominal pain. Due to low urine return, we attempted to flush to catheter and appeared to flush normally. Dr. Patel was asked to evaluate patient. He flushed and readjusted suprapubic catheter tubing. It appeared to flush fine. Approximately 60mL sterile saline was instilled into catheter and villa bag attached and catheter appeared to be draining. -We performed bladder scan on patient to rule out distended bladder. This initially showed low amount of 19 mL. We repeated bladder scan 4 more times with highest amount of 176 mL. -Due to complaints of continued severe abdominal pain, we recommended patient be evaluated in ER and have CT done. PLAN: -Patient sent to ED for further evaluation. -Urine culture was obtained with catheter exchange. Will send for analysis. Anxiety 04/15/2021 Change in color of pigmented skin lesion 022 Chronic pain 04/15/2021 Disorder of intervertebral disc of lumbar spine 04/15/2021 Depressive disorder 04/15/2021 Hyperlipidemia 04/15/2021 Hypertensive disorder 04/15/2021 Hypothyroidism 04/15/2021 Insomnia 04/15/2021 Memory impairment 04/15/2021 Multiple-resistant Staphylococcus aureus infecti on 04/15/2021 Neck pain 04/15/2021 Resting tremor 04/15/2021 Steatosis of liver 04/15/2021 Type 2 diabetes mellitus 04/15/2021 Vasospasm 04/15/2021 Vitamin D deficiency 04/15/2021 Sensorineural hearing loss, bilateral 10/23/2020 Fracture of upper arm 10/22/2010 Immunizations Name Administration Dates Next Due DTaP 12/23/2014 Influenza, Quadrivalent, Hig h Dose, Preservative Free, Intrr 01/09/2021 Influenza, Quadrivalent, Spl it, Intramuscular 11/29/2018 Influenza, Quadrivalent, Spl it, Preservative Free, Intramuscular 12/05/2017 Influenza, Trivalent, IM (MDV) 7,12/23/2014,01/18/2014,04/02 Influenza, Trivalent, Preser vative Free, Intramuscular 11/29/2019,01/14/2016,12/22/2014 Influenza, Unspecified 01/09/2013 Pfizer SARS-CoV-2 Monovalent Vaccination (12+ Yrs) PURPLE 07/24/2020,07/03/2020 Tdap 12/22/2014,01/09/2013,02/16/2010 Surgical History Surgery Date Site/Laterality Comments SECTION 1980 VARICOSE VEIN SURGERY 03/21/1989 - 03/20/1990 Bilateral COLONOSCOPY last one 2011? 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 Diabetes (HCC) dxd Morbid obesity (HCC) PONV (postoperative nausea a nd vomiting) Sleep apnea Wears CPAP night ly History of COVID-19 +COVID ~02/18-- Sx included fatigue, fever, cough; Pt hospitalized for pneumonia/COVID X 2+-3 week History of pulmonary embolus (PE) 02/2021 during hospitalization for COVID-- Currently treated with Xarelto Family History Medical History Relation Name Comments Depression Brother Cancer Father Heart disease Father Cancer Mother Depression Sister Anesthesia problems Neg Hx Relation Name Status Comments Brother Father Mother Sister Social History Tobacco Use Types Packs/Day Years Used Date Smoking Tobacco: Never Smokeless Tobacco: Never Tobacco Cessation:Counseling Given: Not Answered Social Connection and Isolat ion Panel [NHANES] Answer Date Recorded In a typical week, how many times do you talk on the phone with family, friends, or neighbors? More than three times a week 09/07/2021 How often do you get togethe r with friends or relatives? More than three times a week 09/07/2021 How often do you attend chur ch or amish services? 1 to 4 times per year 09/07/2021 Do you belong to any clubs o r organizations such as zoroastrian groups, unions, fraternal or athletic groups, or school groups? No 09/07/2021 How often do you attend meet ings of the clubs or organizations you belong to? Never 09/07/2021 Are you , , di vorced, , never , or living with a partner? 09/07/2021 AUDIT-C Answer Date Recorded Q1: How often do you have a drink containing alcohol? Never 09/27/2023 Q2: How many drinks containi ng alcohol do you have on a typical day when you are drinking? Patient does not drink Q3: How often do you have si x or more drinks on one occasion? Never 09/27/2023 Overall Financial Resource Strain (CARDIA) Answe r Date Recorded How hard is it for you to pa y for the very basics like food, housing, medical care, and heating? Not hard at all 09/07/2021 Hunger Vital Sign Answer Date Recorded Within the past 12 months, y ou worried that your food would run out before you got the money to buy more. Never true 09/08/19 Within the past 12 months, t he food you bought just didn't last and you didn't have money to get more. Never true 09/07/2021 PRAPARE - Transportation Answer Date Re corded In the past 12 months, has l ack of transportation kept you from medical appointments or from getting medications? No 08/20 In the past 12 months, has l ack of transportation kept you from meetings, work, or from getting things needed for daily living? No 09/07/2021 Housing Stability Vital Sign Answer Randal e Recorded In the last 12 months, was t here a time when you were not able to pay the mortgage or rent on time? No 09/07/2021 Number of Places Lived in the Last Year Not on f ile 09/07/2021 In the last 12 months, was t here a time when you did not have a steady place to sleep or slept in a detention (including now)? No 09/07/2021 Personal Safety Answer Date Recorded Getting School Help Needed Not on file 04/02 Comments No Sex and Gender Information Value Date Recorded Sex Assigned at Not on file Legal Sex Female 12:38 AM WASH HOUSE WORKER Gender Identity Not on file Sexual Orientation Not on file Obstetrics History Last Filed Vital Signs Vital Sign Reading Time Taken Comments Blood Pressure 126/76 02/03/2023 8:58 AM WASH HOUSE WORKER Pulse 69 02/03/2023 8:58 AM WASH HOUSE WORKER Temperature 36.7 C (98.1 F) 02/03/2023 8:58 AM WASH HOUSE WORKER Respiratory Rate 18 01/14/2022 9:20 AM CDT Oxygen Saturation 95% 09/15/2021 6:34 AM CDT Inhaled Oxygen Concentration - - Weight 129.7 kg (286 lb) 02/03/2023 8:58 AM WASH HOUSE WORKER Height 175.3 cm (5' 9 ) 02/03/2023 8:58 AM WASH HOUSE WORKER Body Mass Index 42.23 02/03/2023 8:58 AM WASH HOUSE WORKER Plan of Treatment Health Maintenance Due Date Last Done Comments Albumin Creatinine Ratio, Urine 1954 Breast Cancer Screening-Mammogram 1954 Colon Cancer Screening-Colonoscopy 1954 Depression Screening 1954 Hepatitis C Screening 1954 Osteoporosis Screening-Bone Density Scan 1954 Dilated Eye Exam 1954 Foot Exam 1954 Pneumococcal vaccine 65+ (1 of 2 - PCV) 1960 Hepatitis B Screening 1972 Zoster Vaccine (1 of 2) 2004 Well Visit 65+ 2019 Hemoglobin A1C 03/06/2022 09/04/2021, 05/15/2021 Lipid Panel 05/15/2022 05/15/2021, 09/25/2016 Fall Risk Assessment 09/11/2022 09/11/2021 eGFR 09/11/2022 09/11/2021, 08/20, 09/09/2021, Additional history exists Covid-19 Vaccine (2023-2 5 season) 2023 06/05/2021, 07/24/2020, 07/03/2020 Influenza Vaccine (#1) 2023 , 11/29/2019, 11/29/2018, Additional history exists DTaP/Tdap/Td Vaccine (5 - Td or Tdap) 12/23/2024 12/23/2014, 12/22/2014, 01/09/2013, Additional history exists Medical Devices Implanted Type Area Warehouse Supervisor Device Identifier Shelf Expiration Date Model / Serial / Lot [employer]/Ort ho [id number] [id number] 16.3x1.7mm 13 Hole Low Profile Variable Angle - S0 - [id number] Implanted:Qty: 1 on 05/16/2021 by Lori Carnes MD at [facility] Plate Right: Ankle [employer]/ Ortho [id number] 06/26/2028 [id number] / 0 / [id number] [employer]/Ort ho [id number] Evos 3.5mm 48mm Self Tap Cortex Screw Bone Sterile - S0 - [id number] Implanted:Qty: 1 on 05/16/2021 by Lori Carnes MD at [facility] Screw Right: Ankle [employer]/ Ortho [id number] / 0 / 0 [employer]/Ort ho [id number] Evos 3.5mm 50mm Self Tap Cortex Screw Bone Sterile - S0 - [id number] Implanted:Qty: 1 on 05/16/2021 by Lori Carnes MD at [facility] Screw Right: Ankle [employer]/ Ortho [id number] / 0 / 0 [employer]/Ort ho [id number] Evos Mini 2.7mm 4.5mm 12mm Self Tap Cortex T8 Screw Bone - S0 - [id number] Implanted:Qty: 1 on 05/16/2021 by Lori Carnes MD at [facility] Screw Right: Ankle [employer]/ Ortho [id number] / 0 / 0 [employer]/Ort ho [id number] Evos Mini 2.7mm 4.5mm 13mm Self Tap Cortex T8 Screw Bone - S0 - [id number] Implanted:Qty: 1 on 05/16/2021 by Lori Carnes MD at [facility] Screw Right: Ankle [employer]/ Ortho [id number] / 0 / 0 [employer]/Ort ho [id number] Evos Mini 2.7mm 4.5mm 15mm Self Tap Cortex T8 Screw Bone - S0 - [id number] Implanted:Qty: 3 on 05/16/2021 by Lori Carnes MD at [facility] Screw Right: Ankle [employer]/ Ortho [id number] / 0 / 0 [employer]/Ort ho [id number] Evos 3.5mm 12mm Self Tap Cortex Screw Bone Sterile - S0 - [id number] Implanted:Qty: 4 on 05/16/2021 by Lori Carnes MD at [facility] Screw Right: Ankle [employer]/ Ortho [id number] / 0 / 0 [employer]/Ort ho [id number] Evos 3.5mm 46mm Self Tap Cortex Screw Bone Sterile - S0 - [id number] Implanted:Qty: 1 on 05/16/2021 by Lori Carnes MD at [facility] Screw Right: Ankle [employer]/ Ortho [id number] / 0 / 0 Rt Shoulder Pin Right: Shoulder Lumbar Spine Fusion Instrumemtation Spine Lumbar [employer]/Ort ho [id number] Evos 3.5mm 75mm Self Tap Cortex Screw Bone Sterile - [id number] Implanted:Qty: 1 on 05/28/2021 by Randall Camp MD at [facility] Right: Ankle [employer]/ Ortho [id number] / / Explanted Type Area Warehouse Supervisor Device Identifier Shelf Expiration Date Model / Serial / Lot [employer]/O rtho [id number] Evos 2mm 14mm Provisional Pin Fixation Sterile - S0 - [id number] Explanted:Qty: 1 on 05/16/2021 at [facility] Pin Right: Ankle [employer]/Or tho [id number] / 0 / 0 Description:Temporary Placem ent; Provisional Fixation, only [employer]/O rtho [id number] Pin 25mm 2.5mm Fixation Evos Provisional Sterile - S0 - [id number] Explanted:Qty: 1 on 05/16/2021 at [facility] Pin Right: Ankle [employer]/Or tho [id number] / 0 / 0 Description:Temporary Placem ent; Provisional Fixation, only [employer]/O rtho [id number] Evos 3.5mm 15mm Self Tap Cortex Screw Bone Sterile - S0 - [id number] Explanted:Qty: 1 on 05/16/2021 at [facility] Screw Right: Ankle [employer]/Or tho [id number] / 0 / 0 Procedures Procedure Name Priority Date/Time Associated Diagnosis Comments EGFR Routine 09/11/2021 3:21 AM CDT HEMOGLOBIN A1C Routine 09/04/2021 4:18 AM CDT LIPID PANEL STAT 05/15/2021 1:38 PM WASH HOUSE WORKER from Last 3 Months or Most Recently Relevant to Health Maintenance Results * eGFR (09/11/2021 3:21 AM CDT) eGFR 38 mL/min/1. 73 m2 [facility] Comment: Interpretive Data Reference Interval Normal >/= 90 mL/min/1.73m2 Mildly decreased* 60 - 89 mL/min/1.73m2 Mildly to moderately decreased 45 - 59 mL/min/1.73m2 Moderately to severely decreased 30 - 44 mL/min/1.73m2 Severely decreased 15 - 29 mL/min/1.73m2 Kidney Failure < 15 mL/min/1.73m2 *Relative to young adult level Estimated glomerular filtration rate is determined by the 2020 CKD-EPI equation recommended by the National Kidney Foundation (A Unifying Approach to GFR Estimation: Recommendations of the NKF-ASK Task Force on Reassessing the Inclusion of Race in Diagnosing Kidney Disease, TARSHASCarla 2020). The CKD-EPI equation should not be used for patients with unstable renal function and has not been validated in children and those over 70. Current interpretive data was last reviewed 2021. Testing performed by: [address] [address] Blood 09/11/2021 3:21 AM CDT 09/11/2021 5:45 AM CDT us Dipti López MD LAB BLOOD ORDERABLES Final Res ult Performing Organization Address City/[facility]/ZIP Co de Phone Number [address] [place] [address] * (ABNORMAL) Hemoglobin A1c (09/04/2021 4:18 AM CDT) Hgb A1C 6.4(H) 4.0 - 5.6 % [facility] Comment:Testing performed by : [address] [address] Estimated Average Glucose 137 mg/dL [facility] Comment: The ADA recommends reporting an estimated Average Glucose (eAG) with all Hemoglobin A1c results using the equation derived from a study of 507 normal and diabetic adults. Minority populations were underrepresented and children were not included. (Diabetes Care 31:4863-8187, 2008). The eAG is not equivalent to a fasting glucose. Testing performed by: [address] [address] Blood 09/04/2021 4:18 AM CDT 09/04/2021 5:27 AM CDT us Adeline Bo DO LAB BLOOD ORDERABLES Final Re sult Performing Organization Address City/[facility]/ZIP Co de Phone Number [address] [place] [address] * (ABNORMAL) Lipid panel (05/15/2021 1:38 PM WASH HOUSE WORKER) Cholesterol 155 30 - 199 mg/dL [facility] Comment: Interpretive Data Ages < or = 19 years Acceptable: <170 mg/dL Borderline high: 170-199 mg/dL High: >or= 200 mg/dL Ages > or = 20 years Desirable: <200 mg/dL Borderline high: 200-239 mg/dL High: >or= 240 mg/dL Literature References: 1. Expert Panel on Integrated Guidelines for Cardiovascular Health and Risk Reduction in Children and Adolescents. Pediatrics 2011;128:S213 2. NCEP Expert Panel. Circulation 2004;110:227 Current Interpretive Data was last revised on 2017. Triglycerides 372(H) <=149 mg/dL [facility] Comment: Interpretive Data Ages < or = 9 years Acceptable: <75 mg/dL Borderline high: 75-99 mg/dL High: >or= 100 mg/dL Ages 10 to 20 years Acceptable: <90 mg/dL Borderline high: 90-129 mg/dL High: >or= 130 mg/dL Ages > or = 20 years Desirable: <150 mg/dL Borderline high: 150-199 mg/dL High: 200-499 mg/dL Very high: >or= 499 mg/dL Literature References: 1. Expert Panel on Integrated Guidelines for Cardiovascular Health and Risk Reduction in Children and Adolescents. Pediatrics 2011;128:S213 2. NCEP Expert Panel. Circulation 2004;110:227 Current Interpretive Data was last revised on 2017. HDL 29(L) >=40 mg/dL [facility] Comment: Interpretive Data Ages < or = 19 years Acceptable: >45 mg/dL Borderline low: 40-45 mg/dL Low: <40 mg/dL Ages > or = 20 years Desirable: >or= 60 mg/dL Low: <40 mg/dL Literature References: 1. Expert Panel on Integrated Guidelines for Cardiovascular Health and Risk Reduction in Children and Adolescents. Pediatrics 2011;128:S213 2. NCEP Expert Panel. Circulation 2004;110:227 Current Interpretive Data was last revised on 2017. LDL, calculated 52 <=129 mg/dL [facility] Comment: Interpretive Data Ages < or = 19 years Acceptable: <110 mg/dL Borderline high: 110-129 mg/dL High: >or= 130 mg/dL Ages > or = 20 years Optimal: <100 mg/dL Near optimal: 100-129 mg/dL Borderline high: 130-159 mg/dL High: >160 mg/dL Literature References: 1. Expert Panel on Integrated Guidelines for Cardiovascular Health and Risk Reduction in Children and Adolescents. Pediatrics 2011;128:S213 2. NCEP Expert Panel. Circulation 2004;110:227 Current Interpretive Data was last revised on 2017. Non-HDL Cholesterol 126 mg/dL [facility] Comment: Interpretive Data Ages < or = 19 years Acceptable: <120 mg/dL Borderline high: 120-144 mg/dL High: >145 mg/dL Ages > or = 20 years When triglycerides are >200 mg/dL, Non-HDL cholesterol is a secondary target of therapy with treatment goals that are 30 mg/dL greater than the LDL cholesterol target. Literature References: 1. Expert Panel on Integrated Guidelines for Cardiovascular Health and Risk Reduction in Children and Adolescents. Pediatrics 2011;128:S213 2. NCEP Expert Panel. Circulation 2004;110:227 Current Interpretive Data was last revised on 2017. [facility] 5 [facility] Blood 05/15/2021 1:38 PM WASH HOUSE WORKER 05/15/2021 1:48 PM WASH HOUSE WORKER us Radha Lara MD LAB BLOOD ORDERABLES Raisa l Result [facility] Department [place] [address] from Last 3 Months or Most Recently Relevant to Health Maintenance Insurance [place] [address] T MEDICARE [facility] MEDICARE [facility] [address] [facility] MEDICARE Advance Directives For more information, please contact: [phone] * Full Code (Latest Code Status on File) Date Activated Date Inactivated Comments 05/15/2021 10:09 PM 06/03/2021 10:44 PM Care Teams Regulator Inspector Relationship Specialty Start Date End Date Carol Staples MD [address] [place] [address] PCP - General Family Medicine 07/18/20
--- OUTSIDE RECORDS SUMMARY | 2024-04-27 11:21 | XMS_ITS | Referral Summary ---
Author Organization [facility] [employer] Address [address] [place] [address] Care Team Providers Care Manugrapher Name Role Phone Amanda Hanks MD Primary Care Provider [phone] [facility] [employer],non-owned Affiliates and Associated Physician Practices is [facility] consisting of ambulatory clinics and hospital sitesin [place], [place], [place] and [place]. This disclosure is being madepursuant to the Care Everywhere program and may not contain all information available regarding this patient. Last updated 17.[facility] [employer] Allergies No known active allergies Medications * Be aware that medications may not be up to date on this document. Alwaysverify current medications with the patient. Medication Sig Dispensed Refills Start Date End Date Status metFORMIN (GLUCOPHAGE) 500 MG tablet Take 500 mg by mouth 2 times daily with morning and evening meal. Active Insulin Detemir (LEVEMIR FLEXTOUCH SC) Inject 65 Units subcutaneously. Active Cholecalciferol (VITAMIN D3) 29941 UNITS CAPS capsule Take 50,000 Units by mouth every 7 days. Active ferrous sulfate 325 (65 FE) MG tablet Take 325 mg by mouth 2 times daily with morning and evening meal. Active Multiple Vitamin (MULTI VITAMIN DAILY PO) Take by mouth. Active nitroGLYCERIN (NITROSTAT) 0.4 MG tablet Dissolve 0.4 mg under the tongue as needed for Angina. Active gabapentin (NEURONTIN) 800 MG tablet Take 800 mg by mouth 3 times daily. Active Alprazolam 0.25 MG TBDP Take by mouth 3 times daily. Active escitalopram (LEXAPRO) 20 MG tablet Take 20 mg by mouth once daily. Active amitriptyline (ELAVIL) 10 MG tablet Take 10 mg by mouth at bedtime. Active zolpidem (AMBIEN) 10 MG tablet Take 10 mg by mouth nightly as needed for Insomnia. Active oxyCODONE CR 12hr (OXYCONTIN) 30 MG tablet Take 30 mg by mouth. 5 TIMES DAILY Active prochlorperazine (COMPAZINE) 10 MG tablet Take 10 mg by mouth every 8 hours as needed for Nausea/Vomiting. Active ondansetron, disintegrating, (ZOFRAN ODT) 8 MG tablet Take 8 mg by mouth every 8 hours as needed for Nausea/Vomiting. Allow tablet to dissolve on the tongue Active AMLODIPINE BESYLATE PO Take 10 mg by mouth once daily. Active lisinopril (PRINIVIL; ZESTRIL) 40 MG tablet Take 40 mg by mouth once daily. Active hydrochlorothiazide (HYDRODIURIL) 12.5 MG TABS Take by mouth once daily. Active Icosapent Ethyl (VASCEPA) 1 G CAPS Take by mouth 2 times daily. Active atorvastatin (LIPITOR) 10 MG tablet Take 10 mg by mouth at bedtime. Active Bisacodyl (DULCOLAX PO) Take by mouth. Active Aspirin-Acetaminophen -Caffeine (EXCEDRIN PO) Take by mouth. PRN Active Ibuprofen (ADVIL PO) Take by mouth. PRN Active Social History Tobacco Use Types Packs/Day Years Used Date Smoking Tobacco: Never Alcohol Use Standard Drinks/Week Comments No 0 (1 standard drink = 0.6 oz pur e alcohol) Sex and Gender Information Value Date Recorded Sex Assigned at Not on file Gender Identity Not on file Sexual Orientation Not on file Last Filed Vital Signs Vital Sign Reading Time Taken Comments Blood Pressure 170/92 04/08/2014 2:21 PM PHOTOGRAPHER MODEL Pulse 116 04/08/2014 2:21 PM PHOTOGRAPHER MODEL Temperature 36.9 C (98.5 F) 04/08/2014 2:21 PM PHOTOGRAPHER MODEL Respiratory Rate 18 04/08/2014 2:21 PM PHOTOGRAPHER MODEL Oxygen Saturation - - Inhaled Oxygen Concentration - - Weight 131.5 kg (290 lb) 05/20/2014 12:04 PM PHOTOGRAPHER MODEL Height 175.3 cm (5' 9 ) 05/20/2014 12:04 PM PHOTOGRAPHER MODEL Body Mass Index 42.83 05/20/2014 12:04 PM PHOTOGRAPHER MODEL Plan of Treatment Not on file Procedures Procedure Name Priority Date/Time Associated Diagnosis Comments HEPATITIS C ANTIBODY Routine 06/10/2014 11:55 AM CDT from Last 3 Months or Most Recently Relevant to Health Maintenance Results * HEPATITIS C ANTIBODY (06/10/2014 11:55 AM CDT) Hepatitis C Antibody NON-REACTI VE NON-REACT [facility] ([facility]) Signal/Cutoff 0.02 <1.00 [facility]) Comment: Test Performed at: [facility] [address] [facility] [place] [address] GUERLINE MORSE DO,MPH 06/10/2014 11:5 5 AM CDT 06/10/2014 11:56 AM CDT Phil Houser MD LAB - CHEM ISTRY ORDERABLES [facility] ([facility]) from Last 3 Months or Most Recently Relevant to Health Maintenance Care Teams Manugrapher Relationship Specialty Start Date End Date Amanda Hanks MD [address] [place] [address] [address] [place] [address] PCP - General Family Medicine 04/18/14
--- OUTSIDE RECORDS SUMMARY | 2024-04-27 11:21 | XMS_ITS | Continuity of Care Document ---
Author Name Auto Generated, Auto Generated Organization [employer] Support Name Relationship Address Phone Mario Blood Daughter Unknown Unavaila ble Christine Michel Financial Responsible [employer] [address] [place] [address] Christine Michel Self [address] [place] [address] Anand, Serjio Spouse Unknown Unavailable Summary Purpose Consult/Referral Allergies, Adverse Reactions, Alerts Type Description/Agent Code Date Allergy Active Date Allergy Inactivated Date of Last Reaction Adverse Reactions Severity Status Comments Source of Information FDB Medic ation Ingre dient linezolid Active Patient History FDB Medic ation Ingre dient duloxetine Active Patien t History FDB Medic ation Ingre dient vancomycin Active Patien t History FDB Medic ation Ingre dient divalproex sodium Active Patient History Medications No Known Medications Conditions/Problems Problem/Diagnosis Awareness of Diagnosis Code (ICD-10) Onset Date (Start Date) Resolution Date (End Date) Status Source Comments PRESENCE OF UROGENITAL IMPLANTS Z96.0 06/04/19 22 Active MD Jacob Castro UNSPECIFIED OSTEOARTHRITIS, UNSPECIFIED SITE M19.90 06/04/19 22 Active MD Jacob Castro TYPE 2 DIABETES MELLITUS WITH DIABETIC CHRONIC KIDNEY DISEASE E11.22 06/04/19 22 Active MD Jacob Castro HYPERTENSIVE CHRONIC KIDNEY DISEASE WITH STAGE 1 THROUGH STAGE 4 CHRONIC KIDNEY DISEASE, OR UNSPECIFIED CHRONIC KIDNEY DISEASE I12.9 06/04/19 22 Active MD Jacob Castro GENERALIZED ANXIETY DISORDER F41.1 06/04/19 22 Active MD Jacob Casrto MAJOR DEPRESSIVE DISORDER, SINGLE EPISODE, UNSPECIFIED F32.9 06/04/19 22 Active MD Jacob Castro INSOMNIA DUE TO OTHER MENTAL DISORDER F51.05 03/16/20 22 Active MD Jacob Castro CHRONIC KIDNEY DISEASE, STAGE 3B N18.32 06/04/19 22 Active MD Jacob Castro SLOW TRANSIT CONSTIPATION K59.01 06/04/19 22 Active MD Jacob Castro DRUG INDUCED CONSTIPATION K59.03 06/04/19 22 Active MD Jacob Castro ADVERSE EFFECT OF OTHER OPIOIDS, SUBSEQUENT ENCOUNTER T40.2X5D 06/04/19 22 Active MD Jacob Castro MIXED HYPERLIPIDEMIA E78.2 0 22 Active MD Jacob Castro HYPOTHYROIDISM, UNSPECIFIED E03.9 06/04/19 22 Active MD Jacob Castro IRON DEFICIENCY ANEMIA, UNSPECIFIED D50.9 06/04/19 22 Active MD Jacob Castro CANDIDIASIS OF SKIN AND NAIL B37.2 06/04/19 22 Active MD Jacob Castro NONALCOHOLIC STEATOHEPATITIS (COFFMAN) K75.81 06/04/19 22 Active MD Jacob Castro SENSORINEURAL HEARING LOSS, BILATERAL H90.3 06/04/19 22 Active MD Jacob Castro DATABASE DESIGN ANALYST (CURRENT) USE OF ASPIRIN Z79.82 06/04/19 22 Active MD Jacob Castro DATABASE DESIGN ANALYST (CURRENT) USE OF INSULIN Z79.4 06/04/19 22 Active MD Jacob Castro DATABASE DESIGN ANALYST (CURRENT) USE OF ANTICOAGULANTS Z79.01 06/04/19 22 Active MD Jacob Castro ALZHEIMER'S DISEASE, UNSPECIFIED G30.9 06/04/19 22 Active MD Jacob Castro DEMENTIA IN OTHER DISEASES CLASSIFIED ELSEWHERE, UNSPECIFIED SEVERITY, WITHOUT BEHAVIORAL DISTURBANCE, PSYCHOTIC DISTURBANCE, MOOD DISTURBANCE, AND ANXIETY F02.80 06/04/19 22 Active MD Jacob Castro NEUROMUSCULAR DYSFUNCTION OF BLADDER, UNSPECIFIED N31.9 06/04/19 22 Active MD Jacob Castro SCHIZOAFFECTIVE DISORDER, UNSPECIFIED F25.9 06/04/19 22 Active MD Jacob Castro PRESENCE OF OTHER BONE AND TENDON IMPLANTS Z96.7 05/16/19 22 Active MD Jacob Castro ACUTE POSTHEMORRHAGIC ANEMIA D62 05/16/19 22 Active MD Jacob Castro DISPLACED FRACTURE OF NAVICULAR [SCAPHOID] OF RIGHT FOOT, SUBSEQUENT ENCOUNTER FOR FRACTURE WITH ROUTINE HEALING S92.251D 05/15/19 22 Active MD Jacob Castro DISPLACED FRACTURE OF MEDIAL CUNEIFORM OF RIGHT FOOT, SUBSEQUENT ENCOUNTER FOR FRACTURE WITH ROUTINE HEALING S92.241D 05/15/19 22 Active MD Jacob Castro UNSPECIFIED FALL, SUBSEQUENT ENCOUNTER W19.XXXD 05/15/19 Active MD Jacob Castro DISPLACED TRIMALLEOLAR FRACTURE OF RIGHT LOWER LEG, SUBSEQUENT ENCOUNTER FOR CLOSED FRACTURE WITH ROUTINE HEALING S82.851D 05/15/19 22 Active MD Jacob Castro DISPLACED FRACTURE OF SECOND METATARSAL BONE, RIGHT FOOT, SUBSEQUENT ENCOUNTER FOR FRACTURE WITH ROUTINE HEALING S92.321D 05/15/19 22 MD Jacob Cook DISPLACED FRACTURE OF THIRD METATARSAL BONE, RIGHT FOOT, SUBSEQUENT ENCOUNTER FOR FRACTURE WITH ROUTINE HEALING S92.331D 05/15/19 22 Active MD Jacob Castro DISPLACED FRACTURE OF FOURTH METATARSAL BONE, RIGHT FOOT, SUBSEQUENT ENCOUNTER FOR FRACTURE WITH ROUTINE HEALING S92.341D 05/15/19 22 MD Jacob Cook PERSONAL HISTORY OF PULMONARY EMBOLISM Z86.711 02/19/20 21 MD Jacob Cook Procedures No Known Procedures
--- OUTSIDE RECORDS SUMMARY | 2024-04-27 11:21 | XMS_ITS | Clinical Summary ---
Author Organization [facility] Address [address] [place] [id number] Care Team Providers Care Clinical Technologist Name Role Phone None, Provider MD Primary Care Provider Unavaila ble Medications No known medications Social History Tobacco Use Types Packs/Day Years Used Date Smoking Tobacco: Never Tobacco Cessation:Counseling Given: Not Answered Comments Unknown Sex and Gender Information Value Date Recorded Sex Assigned at Not on file Legal Sex Female 6:45 PM CDT Gender Identity Not on file Sexual Orientation Not on file Last Filed Vital Signs Vital Sign Reading Time Taken Comments Blood Pressure 136/96 11/03/2023 4:00 PM CDT Pulse 96 11/03/2023 12:33 PM CDT Temperature 36.8 C (98.2 F) 11/03/2023 12:33 PM CDT Respiratory Rate 14 11/03/2023 12:33 PM CDT Oxygen Saturation 93% 11/03/2023 4:00 PM CDT Inhaled Oxygen Concentration - - Weight 137.1 kg (302 lb 4 oz) 11/03/2023 12:33 P M CDT Height 172.7 cm (5' 8 ) 11/03/2023 12:33 PM CDT Body Mass Index 45.96 11/03/2023 12:33 PM CDT Plan of Treatment Health Maintenance Due Date Last Done Comments Colorectal Cancer Screening Colonoscopy (10 Years) 1954 Hepatitis C 1972 Mammogram Screening 1994 Zoster Vaccines (1 of 2) 2004 RSV Immunization or 60+ Years (1 - Risk 60-74 years 1-dose series) 2014 Annual Medicare Wellness Visit 2019 Dexa Scan (General) 2019 Pneumococcal Vaccine: 65+ Years (1 of 1 - PCV) 2019 COVID-19 Vaccine ( season) 2023 02/06/2023, 04/20/2022, 06/05/2021, Additional history exists Influenza Adult (#1) 2023 11/29/2019, 11/29/2018, 12/05/2017, Additional history exists DTaP, Tdap and Td Vaccines (5 - Td or Tdap) 12/23/2024 12/23/2014, 12/22/2014, 01/09/2013, Additional history exists Meningococcal B Vaccine Aged Out No l onger eligible based on patient's age to complete this topic Meningococcal Vaccine Aged Out No anushka jose c eligible based on patient's age to complete this topic RSV Immunizations Under 20 Months Aged Out No longer eligible based on patient's age to complete this topic Insurance [employer] Care Teams Clinical Technologist Relationship Specialty Start Date End Date None, Provider, MD PCP - General UNKNOWN PHYSICIAN SPECIALTY 11/03/23
--- OUTSIDE RECORDS SUMMARY | 2024-04-27 11:21 | XMS_ITS | Patient Health Summary ---
Author Organization [facility] Address [address] [place] [address] Care Team Providers Care Automatic Winder Operator Name Role Phone Amanda Hanks MD Primary Care Provider [phone] Note from [facility],non-owned Affiliates and Associated Physician Practices is amultiple site organization consisting of ambulatory clinics and hospital sitesin [place], [place] and [place]. This disclosure is being madepursuant to the Care Everywhere program and may not contain all information available regarding this patient. Last updated 17.[employer] [facility] [facility] Allergies No known active allergies Medications * Be aware that medications may not be up to date on this document. Alwaysverify current medications with the patient. * metFORMIN (GLUCOPHAGE) 500 MG tablet Take 500 mg by mouth 2 times daily with morning and evening meal. * Insulin Detemir (LEVEMIR FLEXTOUCH SC) Inject 65 Units subcutaneously. * Cholecalciferol (VITAMIN D3) 29007 UNITS CAPS capsule Take 50,000 Units by mouth every 7 days. * ferrous sulfate 325 (65 FE) MG tablet Take 325 mg by mouth 2 times daily with morning and evening meal. * Multiple Vitamin (MULTI VITAMIN DAILY PO) Take by mouth. * nitroGLYCERIN (NITROSTAT) 0.4 MG tablet Dissolve 0.4 mg under the tongue as needed for Angina. * gabapentin (NEURONTIN) 800 MG tablet Take 800 mg by mouth 3 times daily. * Alprazolam 0.25 MG TBDP Take by mouth 3 times daily. * escitalopram (LEXAPRO) 20 MG tablet Take 20 mg by mouth once daily. * amitriptyline (ELAVIL) 10 MG tablet Take 10 mg by mouth at bedtime. * zolpidem (AMBIEN) 10 MG tablet Take 10 mg by mouth nightly as needed for Insomnia. * oxyCODONE CR 12hr (OXYCONTIN) 30 MG tablet Take 30 mg by mouth. 5 TIMES DAILY * prochlorperazine (COMPAZINE) 10 MG tablet Take 10 mg by mouth every 8 hours as needed for Nausea/Vomiting. * ondansetron, disintegrating, (ZOFRAN ODT) 8 MG tablet Take 8 mg by mouth every 8 hours as needed for Nausea/Vomiting. Allow tablet to dissolve on the tongue * AMLODIPINE BESYLATE PO Take 10 mg by mouth once daily. * lisinopril (PRINIVIL; ZESTRIL) 40 MG tablet Take 40 mg by mouth once daily. * hydrochlorothiazide (HYDRODIURIL) 12.5 MG TABS Take by mouth once daily. * Icosapent Ethyl (VASCEPA) 1 G CAPS Take by mouth 2 times daily. * atorvastatin (LIPITOR) 10 MG tablet Take 10 mg by mouth at bedtime. * Bisacodyl (DULCOLAX PO) Take by mouth. * Anmfpqq-Jhchjqbbirapd-Eesuashl (EXCEDRIN PO) Take by mouth. PRN * Ibuprofen (ADVIL PO) Take by mouth. PRN Social History Tobacco Use Types Packs/Day Years [...] Comments Blood Pressure 170/92 04/08/2014 2:21 PM SLITTING MACHINE OPERATOR HELPER Pulse 116 04/08/2014 2:21 PM SLITTING MACHINE OPERATOR HELPER Temperature 36.9 C (98.5 F) 04/08/2014 2:21 PM SLITTING MACHINE OPERATOR HELPER Respiratory Rate 18 04/08/2014 2:21 PM SLITTING MACHINE OPERATOR HELPER Oxygen Saturation - - Inhaled Oxygen Concentration - - Weight 131.5 kg (290 lb) 05/20/2014 12:04 PM SLITTING MACHINE OPERATOR HELPER Height 175.3 cm (5' 9 ) 05/20/2014 12:04 PM SLITTING MACHINE OPERATOR HELPER Body Mass Index 42.83 05/20/2014 12:04 PM SLITTING MACHINE OPERATOR HELPER Procedures * EAHUQ-4-SKSHVVRRMWU BLOOD PHENOTYPING PANEL(Performed 06/10/2014) * MITOCHONDRIAL ANTIBODY SCREEN(Performed 06/10/2014) * SMOOTH MUSCLE ANTIBODY(Performed 06/10/2014) * JUDE BLOOD TITER(Performed 06/10/2014) * JUDE BLOOD SCREEN W/REFLEX TITER(Performed 06/10/2014) * CERULOPLASMIN(Performed 06/10/2014) * HOHYP-7-TYGPJJGNOFM BLOOD(Performed 06/10/2014) * HEPATITIS B SURFACE ANTIBODY(Performed 06/10/2014) * HEPATITIS C ANTIBODY(Performed 06/10/2014) * HEPATITIS A ANTIBODY(Performed 06/10/2014) * HEPATITIS B CORE ANTIBODY TOTAL(Performed 06/10/2014) * HEPATITIS B SURFACE ANTIGEN W RFLX CONFIRMATION(Performed 06/10/2014) * COMPREHENSIVE METABOLIC PANEL(Performed 06/10/2014) * IRON + TIBC PANEL(Performed 06/10/2014) * CBC W AUTO DIFFERENTIAL(Performed 06/10/2014) * IMAGING/RADIOLOGY/XRAY RESULTS ORDER(Performed 03/29/2014) * IMAGING/RADIOLOGY/XRAY RESULTS ORDER(Performed 02/13/2014) Results * MITOCHONDRIAL ANTIBODY SCREEN (06/10/2014 11:55 AM CDT) Mitochondria M2 Antibody IgG <20.0 U [facility] ([facility]) Comment: Reference Range: NEGATIVE: < OR = 20.0 EQUIVOCAL: 20.1-24.9 POSITIVE: > OR = 25.0 REPORT COMMENT: IS PATIENT ON HEPARIN?->N Test Performed at: [facility] [address] [place] [address] LOLA CANO MD PHD 06/10/2014 11:5 5 AM CDT 06/10/2014 11:56 AM CDT Phil Houser MD LAB - CHEM ISTRY ORDERABLES [facility] ([facility]) * POTHR-8-MNBJKIBSPLC BLOOD PHENOTYPING PANEL (06/10/2014 11:55 AM CDT) Pathologist [facility] Cmfcy-4-Ecmjxhaib in Phenotype SEE NOTE [facility] ([facility]) Comment: 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 90% of normal individuals have the MM phenotype, with normal quantitative AAT levels. Many phenotypic patterns have been described, including deficiency states with F, S, Z, or other alleles. As a general estimation, compared to M allele of 100% of normal N-5-Qsoemtwdkcs protein, the S allele produces approximately 60% and the Z allele 20%. For example, an MS phenotype would have about 80% of normal P-2-Bxskwjvpcmq protein level, a 50% contribution from the M allele and 30% from the S allele. A ZZ phenotype would have about 20% of normal levels. The F allele has normal X-3-Savrckoymfo levels, but the kinetics of elastase inhibition is not as efficient as an M allele product; F alleles should be considered functionally mildly deficient. REPORT COMMENT: IS PATIENT ON HEPARIN?->N Test Performed at: [facility] [address] [place] [address] LOLA CANO MD PHD 06/10/2014 11:5 5 AM CDT 06/10/2014 11:56 AM CDT Phil Houser MD LAB - CHEM ISTRY ORDERABLES Performing Organization Address [facility] de Phone Number [facility]) * (ABNORMAL) JUDE BLOOD TITER (06/10/2014 11:55 AM CDT) Pathologist [facility] JUDE Pattern #1 ATYPICAL SPECKLED(A) [facility]) JUDE Pattern #1 1:1280(H) titer [facility]) Comment: Reference Range <1:40 Negative 1:40-1:80 Low Antibody Level >1:80 Elevated Antibody Level REPORT COMMENT: IS PATIENT ON HEPARIN?->N Test Performed at: [facility] [address] [place] [address] GUERLINE MORSE DO,MPH 06/10/2014 11:5 5 AM CDT 06/10/2014 11:56 AM CDT Phil Houser MD LAB - CHEM ISTRY ORDERABLES Performing Organization Address [facility]/ZIP Co de Phone Number [facility] ([facility]) * (ABNORMAL) JUDE BLOOD SCREEN W/REFLEX TITER (06/10/2014 11:55 AM CDT) JUDE Screen POSITIVE( A) NEGATIVE [facility] ([facility]) Comment: REPORT COMMENT: IS PATIENT ON HEPARIN?->N Test Performed at: [place] [address] GUERLINE MORSE DO,MPH 06/10/2014 11:5 5 AM CDT 06/10/2014 11:56 AM CDT Phil Houser MD LAB - CHEM ISTRY ORDERABLES Performing Organization Address [facility]/ZIP Co de Phone Number [facility] ([facility]) * CERULOPLASMIN (06/10/2014 11:55 AM CDT) Ceruloplasmin 31 18 - 53 mg/dL [facility]) Comment: REPORT COMMENT: IS PATIENT ON HEPARIN?->N Test Performed at: [place] [address] GUERLINE MORSE DO,MPH 06/10/2014 11:5 5 AM CDT 06/10/2014 11:56 AM CDT Phil Houser MD LAB - CHEM ISTRY ORDERABLES Performing Organization Address [facility] de Phone Number [facility] ([facility]) * UHWKO-7-ASDVCORTMFV BLOOD (06/10/2014 11:55 AM CDT) Tofmq-2-Hvwfcgxy sin 123 83 - 199 mg/dL [facility] ([facility]) Comment: Test Performed at: [facility] [place] [address] GUERLINE MORSE DO,MPH 06/10/2014 11:5 5 AM CDT 06/10/2014 11:56 AM CDT Phil Houser MD LAB - CHEM ISTRY ORDERABLES Performing Organization Address City/[facility]/ZIP Co de Phone Number [facility]) * SMOOTH MUSCLE ANTIBODY (06/10/2014 11:55 AM CDT) Pathologist [facility] Actin Antibody IgG <20 <20 U [facility] ([facility]) Comment: Reference Range: <20 U: Negative >or=20 U: Positive Antibodies recognizing actin are the main component of smooth muscle antibodies associated with auto- immune liver disease. Actin antibodies are found in approximately 75% of patients with autoimmune hepatitis (AIH) type 1, approximately 65% of patients with autoimmune cholangitis, approximately 30% of patients with primary biliary cirrhosis and approximately 2% of healthy controls. High values are closely correlated with AIH type 1. REPORT COMMENT: IS PATIENT ON HEPARIN?->N Test Performed at: [facility] [address] KADY BRYANT MD 06/10/2014 11:5 5 AM CDT 06/10/2014 11:56 AM CDT Phil Houser MD LAB - SERO LOGY ORDERABLES [facility]) * (ABNORMAL) CBC W AUTO DIFFERENTIAL (06/10/2014 11:55 AM CDT) Pathologist [facility] WBC 6.3 3.8 - 10.8 Thousand/u L [facility]) RBC 4.27 3.80 - 5.10 Million/uL [facility]) Hemoglobin 12.0 11.7 - 15.5 g/dL [facility]) Hematocrit 38.0 35.0 - 45.0 % [facility]) MCV 89.1 80.0 - 100.0 fL [facility]) MCH 28.0 27.0 - 33.0 pg [facility]) MCHC 31.5(L) 32.0 - 36.0 g/dL [facility]) RDW-CV 16.8(H) 11.0 - 15.0 % [facility]) Platelet 240 140 - 400 Thousand/u L [facility]) Neutrophils Absolute 4,694 1,500 - 7,800 cells/uL [facility]) Lymphocyte Absolute Manual 1,153 850 - 3,900 cells/uL [facility]) Monocytes Absolute 296 200 - 950 cells/uL [facility]) Eosinophils Absolute 132 15 - 500 cells/uL [facility]) Basophil Absolute Manual 25 0 - 200 cells/uL [facility]) Neutrophils % 74.5 % [facility]) Lymphocytes % 18.3 % [facility]) Monocytes % 4.7 % [facility]) Eosinophils % 2.1 % [facility] Basophil % 0.4 % [facility]) Comment: REPORT COMMENT: IS PATIENT ON HEPARIN?->N Test Performed at: [facility] [address] [place] [address] GUERLINE MORSE DO,MPH 06/10/2014 11:5 5 AM CDT 06/10/2014 11:56 AM CDT Phil Houser MD LAB - ARTURO TOLOGY ORDERABLES [facility] [place] ([facility]) * (ABNORMAL) COMPREHENSIVE METABOLIC PANEL (06/10/2014 11:55 AM CDT) Glucose 152(H) 65 - 99 mg/dL [facility]) Comment: Fasting reference interval BUN 30(H) 7 - 25 mg/dL [facility]) Creatinine 1.07(H) 0.50 - 0.99 mg/dL [facility]) Comment: For patients >49 years of age, the reference limit for Creatinine is approximately 13% higher for people identified as -[place]. eGFR non- 56(L) > OR = 60 mL/min/1. 73m2 [facility]) eGFR 65 > OR = 60 mL/min/1. 73m2 [facility]) BUN/Creatinine Ratio 28(H) 6 - 22 (calc) [facility]) Sodium 138 135 - 146 mmol/L [facility]) Potassium 4.9 3.5 - 5.3 mmol/L [facility]) Chloride 99 98 - 110 mmol/L [facility]) CO2 26 19 - 30 mmol/L [facility]) Calcium 9.5 8.6 - 10.4 mg/dL [facility]) Protein Total 7.0 6.1 - 8.1 g/dL [facility]) Albumin 4.1 3.6 - 5.1 g/dL [facility]) Globulin 2.9 1.9 - 3.7 g/dL (calc) [facility]) Albumin/Globulin Ratio 1.4 1.0 - 2.5 (calc) [facility]) Bilirubin Total 0.3 0.2 - 1.2 mg/dL [facility]) Alkaline Phosphatase 113 33 - 130 U/L [facility]) AST 24 10 - 35 U/L [facility]) ALT 31(H) 6 - 29 U/L [facility]) Comment: REPORT COMMENT: IS PATIENT ON HEPARIN?->N Test Performed at: [facility] [address] [place] [address] GUERLINE MORSE DO,MPH 06/10/2014 11:5 5 AM CDT 06/10/2014 11:56 AM CDT Phil Houser MD LAB - CHEM ISTRY ORDERABLES Performing Organization Address City/[facility]/ZIP Co de Phone Number [facility] ([facility]) * IRON + TIBC PANEL (06/10/2014 11:55 AM CDT) Pathologist [facility] Iron 59 45 - 160 mcg/dL [facility]) TIBC 341 250 - 450 mcg/dL [facility]) Iron Saturation 17 11 - 50 % (calc) [facility]) Comment: Test Performed at: [facility] [address] [place] [address] GUERLINE MORSE DO,MPH 06/10/2014 11:5 5 AM CDT 06/10/2014 11:56 AM CDT Phil Houser MD LAB - CHEM ISTRY ORDERABLES [facility]) * HEPATITIS B SURFACE ANTIBODY (06/10/2014 11:55 AM CDT) Pathologist [facility] Hepatitis B Virus Surface Antibody <5 mIU/mL [facility]) Comment: Patient does not have immunity to hepatitis B virus. Effective July 30, 2013 this test is being performed using the [employer] Chemiluminesence method. Quantitative results from this method should not be used interchangeably with other methods. REPORT COMMENT: IS PATIENT ON HEPARIN?->N Test Performed at: [place] [address] GUERLINE MORSE DO,MPH 06/10/2014 11:5 5 AM CDT 06/10/2014 11:56 AM CDT Phil Houser MD LAB - CHEM ISTRY ORDERABLES Performing Organization Address [facility]/ZIP Co de Phone Number [facility]) * HEPATITIS B CORE ANTIBODY (06/10/2014 11:55 AM CDT) Hepatitis B Core Virus Antibody Total NON-REACTI VE NON-REACT DANI[facility]) Comment: Test Performed at: [place] [address] GUERLINE MORSE DO,MPH 06/10/2014 11:5 5 AM CDT 06/10/2014 11:56 AM CDT Phil Houser MD LAB - CHEM ISTRY ORDERABLES [facility]) * HEPATITIS B SURFACE ANTIGEN W RFLX CONFIRMATION (06/10/2014 11:55 AM CDT) Hepatitis B Virus Surface Antigen NON-REACTI VE NON-REACT DANI[facility]) Comment: Test Performed at: [place] [address] GUERLINE MORSE DO,MPH 06/10/2014 11:5 5 AM CDT 06/10/2014 11:56 AM CDT Phil Houser MD LAB - CHEM ISTRY ORDERABLES Performing Organization Address [facility] de Phone Number [facility]) * HEPATITIS C ANTIBODY (06/10/2014 11:55 AM CDT) Hepatitis C Antibody NON-REACTI VE NON-REACT DANI[facility]) Signal/Cutoff 0.02 <1.00 [facility]) Comment: Test Performed at: [facility] [place] [address] [place] [address] GUERLINE MORSE DO,MPH 06/10/2014 11:5 5 AM CDT 06/10/2014 11:56 AM CDT Phil Houser MD LAB - CHEM ISTRY ORDERABLES Performing Organization Address [facility] de Phone Number [facility]) * HEPATITIS A ANTIBODY (06/10/2014 11:55 AM CDT) Hepatitis A Virus Antibody Total NON-REACTI VE NON-REACT DANIEL [facility]) Comment: Test Performed at: [facility] [place] [address] [place] [address] GUERLINE MORSE DO,MPH 06/10/2014 11:5 5 AM CDT 06/10/2014 11:56 AM CDT Phil Houser MD LAB - CHEM ISTRY ORDERABLES Performing Organization Address [facility] de Phone Number [facility]) * IMAGING/RADIOLOGY/XRAY RESULTS ORDER (03/29/2014) Only the most recent of2 resultswithin the time period is included. Anatomical Region Laterality Modality Other Provider Unknown IMAGING Care Teams Automatic Winder Operator Relationship Specialty Start Date End Date Amanda Hanks MD [address] [place] [address] [address] [place] [address] PCP - General Family Medicine 04/18/14
--- OUTSIDE RECORDS SUMMARY | 2024-04-27 11:21 | XMS_ITS | Referral Summary ---
Author Organization [facility] Address [facility] [place] [address] Care Team Providers Care Physical Damage Appraiser Name Role Phone Carol Staples MD Primary [...] (05/15/2021): Added automatically from request for surgery [id number] Closed displaced fracture of medial malleolus of right tibia 05/15/2021 Overview (05/25/2021): Added automatically from request for surgery [id number] Neurogenic bladder 04/17/2021 Overview (04/17/2021): Added automatically from request for surgery [id number] Assessment & Plan (09/03/2021 9:34 PM CDT): [...] Vaccination (12+ Yrs) PURPLE 07/24/2020,07/03/2020 Tdap 12/22/2014,01/09/2013,02/16/2010 Social History Tobacco Use Types Packs/Day Years [...] 09/07/2021 How often do you attend chur or alevism services? 1 to 4 times per year 09/07/2021 Do you belong to any clubs o r organizations such as protestant groups, unions, fraternal or athletic groups, or [...] money to buy more. Never true 09/08/19 22 Within the past 12 months, t he [...] place to sleep or slept in a usp (including now)? No 09/07/2021 Personal Safety Answer Date Recorded Getting School Help Needed Not on file 04/02 Comments No Sex and Gender Information Value Date Recorded Sex Assigned at Not on file Legal Sex Female 12:38 AM MOTOR DRIVER Gender Identity Not on file Sexual Orientation Not on file Last Filed Vital Signs Vital Sign Reading Time Taken Comments Blood Pressure 126/76 02/03/2023 8:58 AM MOTOR DRIVER Pulse 69 02/03/2023 8:58 AM MOTOR DRIVER Temperature 36.7 C (98.1 F) 02/03/2023 8:58 AM MOTOR DRIVER Respiratory Rate 18 01/14/2022 9:20 AM CDT Oxygen Saturation 95% 09/15/2021 6:34 AM CDT Inhaled Oxygen Concentration - - Weight 129.7 kg (286 lb) 02/03/2023 8:58 AM MOTOR DRIVER Height 175.3 cm (5' 9 ) 02/03/2023 8:58 AM MOTOR DRIVER Body Mass Index 42.23 02/03/2023 8:58 AM MOTOR DRIVER Plan of Treatment Not on file Medical Devices Implanted Type Area Emergency Room Clinician Device Identifier Shelf Expiration Date Model / Serial / Lot Yuan [employer] Nephew/Richco/Ort [id number] Evos [id number] 16.3x1.7mm 13 Hole Low Profile Variable Angle - S0 - [id number] Implanted:Qty: 1 on 05/16/2021 by Lori Carnes MD at [facility] Plate Right: Ankle [employer]/Rich[employer]/ Ortho [id number] 06/26/2028 [id number] / 0 / [id number] [employer]/Richco/Ort ho [id number] Evos 3.5mm 48mm Self Tap Cortex Screw Bone Sterile - S0 - [id number] Implanted:Qty: 1 on 05/16/2021 by Lori Carnes MD at [facility] Screw Right: Ankle [employer]/Rich[employer]/ Ortho [id number] / 0 / 0 [employer]/Richco/Ort ho [id number] Evos 3.5mm 50mm Self Tap Cortex Screw Bone Sterile - S0 - [id number] Implanted:Qty: 1 on 05/16/2021 by Lori Carnes MD at [facility] Screw Right: Ankle [employer]/Rich[employer]/ Ortho [id number] / 0 / 0 [employer]/Richco/Ort ho [id number] Evos Mini 2.7mm 4.5mm 12mm Self Tap Cortex T8 Screw Bone - S0 - [id number] Implanted:Qty: 1 on 05/16/2021 by Lori Carnes MD at [facility] Screw Right: Ankle [employer]/Rich[employer]/ Ortho [id number] / 0 / 0 [employer]hew/Richco/Ort ho [id number] Evos Mini 2.7mm 4.5mm 13mm Self Tap Cortex T8 Screw Bone - S0 - [id number] Implanted:Qty: 1 on 05/16/2021 by Lori Carnes MD at [facility] Screw Right: Ankle [employer]/Rich[employer]/ Ortho [id number] / 0 / 0 [employer]hew/Richco/Ort ho [id number] Evos Mini 2.7mm 4.5mm 15mm Self Tap Cortex T8 Screw Bone - S0 - [id number] Implanted:Qty: 3 on 05/16/2021 by Lori Carnes MD at [facility] Screw Right: Ankle [employer]/Rich[employer]/ Ortho [id number] / 0 / 0 [employer]/Richco/Ort ho [id number] Evos 3.5mm 12mm Self Tap Cortex Screw Bone Sterile - S0 - [id number] Implanted:Qty: 4 on 05/16/2021 by Lori Carnes MD at [facility] Screw Right: Ankle [employer]/Rich[employer]/ Ortho [id number] / 0 / 0 [employer]hew/Richco/Ort ho [id number] Evos 3.5mm 46mm Self Tap Cortex Screw Bone Sterile - S0 - [id number] Implanted:Qty: 1 on 05/16/2021 by Lori Carnes MD at [facility] Screw Right: Ankle [employer]hew/Rich[employer]/ Ortho [id number] / 0 / 0 Rt Shoulder Pin Right: Shoulder Lumbar Spine Fusion Instrumemtation Spine Lumbar [employer]/Rich[employer]/Ort ho [id number] Evos 3.5mm 75mm Self Tap Cortex Screw Bone Sterile - [id number] Implanted:Qty: 1 on 05/28/2021 by Randall Camp MD at [facility] Right: Ankle [employer]hew/Richco/ Ortho [id number] / / Explanted Type Area Emergency Room Clinician Device Identifier Shelf Expiration Date Model / Serial / Lot [employer] Nephew/Richco/O rtho [id number] Evos 2mm 14mm Provisional Pin Fixation Sterile - S0 - [id number] Explanted:Qty: 1 on 05/16/2021 at [facility] Pin Right: Ankle [employer]hew/Richco/Or tho [id number] / 0 / 0 Description:Temporary Placem ent; Provisional Fixation, only [employer]hew/Richco/O rtho [id number] Pin 25mm 2.5mm Fixation Evos Provisional Sterile - S0 - [id number] Explanted:Qty: 1 on 05/16/2021 at [facility] Pin Right: Ankle [employer]hew/Richco/Or tho [id number] / 0 / 0 Description:Temporary Placem ent; Provisional Fixation, only Yuna And Nephew/Richco/O rtho [id number] Evos 3.5mm 15mm Self Tap Cortex Screw Bone Sterile - S0 - [id number] Explanted:Qty: 1 on 05/16/2021 at [facility] Screw Right: Ankle [employer]hew/Richco/Or tho [id number] / 0 / 0 Procedures Procedure Name Priority Date/Time Associated Diagnosis Comments EGFR Routine 09/11/2021 3:21 AM CDT HEMOGLOBIN A1C Routine 09/04/2021 4:18 AM CDT LIPID PANEL STAT 05/15/2021 1:38 PM MOTOR DRIVER from Last 3 Months or Most Recently Relevant to Health Maintenance Results * eGFR (09/11/2021 3:21 AM CDT) eGFR 38 mL/min/1. 73 m2 [facility] Comment: Interpretive Data Reference Interval Normal >/= [...] Inclusion of Race in Diagnosing Kidney Disease, JASN 2020). The CKD-EPI equation should not be used for patients with unstable renal function and has not been validated in children and those over 70. Current interpretive data was last reviewed 2021. Testing performed by: [facility], [address] [place] [address], [place]., [address] Blood 09/11/2021 3:21 AM CDT 09/11/2021 5:45 AM CDT Dipti López MD LAB BLOOD ORDERABLES Final Res ult Performing Organization Address City/[facility] Co de Phone Number [facility] [address] [place] [address] * (ABNORMAL) Hemoglobin A1c (09/04/2021 4:18 AM CDT) Hgb A1C 6.4(H) 4.0 - 5.6 % [facility] Comment:Testing performed by : [address] [address] Estimated Average Glucose 137 mg/dL [facility] Comment: The ADA recommends reporting an estimated Average Glucose (eAG) with all Hemoglobin A1c results using the equation derived from a study of 507 normal and diabetic adults. Minority populations were underrepresented and children were not included. (Diabetes Care 31:6845-7434, 2008). The eAG is not equivalent to a fasting glucose. Testing performed by: [address] [address] Blood 09/04/2021 4:18 AM CDT 09/04/2021 5:27 AM CDT us Adeline Bo DO LAB BLOOD ORDERABLES Final Re sult Performing Organization Address [facility] Co de Phone Number [place] [address] [place] [address] * (ABNORMAL) Lipid panel (05/15/2021 1:38 PM MOTOR DRIVER) Pathologist [facility] Cholesterol 155 30 - 199 mg/dL [facility] Comment: Interpretive Data Ages < or [...] revised on 2017. Triglycerides 372(H) <=149 mg/dL [facility] Comment: Interpretive Data Ages < or = [...] revised on 2017. HDL 29(L) >=40 mg/dL [facility] Comment: Interpretive Data Ages < or = [...] on 2017. LDL, calculated 52 <=129 mg/dL [facility] Comment: Interpretive Data Ages < or = [...] revised on 2017. Non-HDL Cholesterol 126 mg/dL [facility] Comment: Interpretive Data Ages < or = [...] last revised on 2017. Chol/HDL ratio 5 [facility] Blood 05/15/2021 1:38 PM MOTOR DRIVER 05/15/2021 1:48 PM MOTOR DRIVER us Radha aLra MD LAB BLOOD ORDERABLES Raisa davila Result [facility] One [facility] Department [place] [address] from Last 3 Months or Most Recently Relevant to Health Maintenance Insurance [place] [address] AETNA MEDICARE AETNA MEDICARE [place] [address] AETNA MEDICARE Advance Directives For more information, please contact: [phone] * Full Code (Latest Code Status on File) Date Activated Date Inactivated Comments 05/15/2021 10:09 PM 06/03/2021 10:44 PM Care Teams Physical Damage Appraiser Relationship Specialty Start Date End Date Carol Staples MD [address] [place] [address] PCP - General Family Medicine 07/18/20
--- OUTSIDE RECORDS SUMMARY | 2024-04-27 11:21 | XMS_ITS | Clinical Summary ---
Author Organization [facility] Address [address] [facility] [place] [address] Care Team Providers Care Visitor Services Technician Name Role Phone Amanda Hanks MD Primary Care Provider [phone] Source Comments [facility],non-owned Affiliates and Associated Physician Practices is [facility] site organization consisting of ambulatory clinics and hospital sitesin [place], [place], [place] and [place]. This disclosure is being madepursuant to the Care Everywhere program and may not contain all information available regarding this patient. Last updated 17.[facility] Allergies No known active allergies Medications * [...] 65 Units subcutaneously. Active Cholecalciferol (VITAMIN D3) 76199 UNITS CAPS capsule Take 50,000 Units by [...] (ADVIL PO) Take by mouth. PRN Active Family History Medical History Relation Name Comments Diabetes Father Heart Failure Father Hypertension Father Arthritis - Osteo Mother Arthritis - Rheumatoid Mother Cancer Mother Thyroid Disease Mother Diabetes Paternal Grandfather Arthritis - Rheumatoid Sister 2 Arthritis - Osteo Sister 3 Relation Name Status Comments Brother Father Mother Paternal Grandfather Sister 1 Alive Sister 2 Sister 3 Social History Tobacco Use Types Packs/Day Years [...] Comments Blood Pressure 170/92 04/08/2014 2:21 PM DATA SECURITY ADMINISTRATOR Pulse 116 04/08/2014 2:21 PM DATA SECURITY ADMINISTRATOR Temperature 36.9 C (98.5 F) 04/08/2014 2:21 PM DATA SECURITY ADMINISTRATOR Respiratory Rate 18 04/08/2014 2:21 PM DATA SECURITY ADMINISTRATOR Oxygen Saturation - - Inhaled Oxygen Concentration - - Weight 131.5 kg (290 lb) 05/20/2014 12:04 PM DATA SECURITY ADMINISTRATOR Height 175.3 cm (5' 9 ) 05/20/2014 12:04 PM DATA SECURITY ADMINISTRATOR Body Mass Index 42.83 05/20/2014 12:04 PM DATA SECURITY ADMINISTRATOR Plan of Treatment Health Maintenance Due Date Last Done Comments BONE DENSITY TESTING 1954 COLOGUARD (AGES 45-75) - COL ON CA SCREENING 1954 COLON MONITORING 1954 COLONOSCOPY - COLON CA SCREENING 1954 CT COLONOGRAPHY - COLON CA SCREENING 1954 Colorectal Cancer Screening 1954 FIT - COLON CA SCREENING 1954 FLEX SIG - COLON CA SCREENING 1954 MAMMOGRAM 1954 DTAP/TDAP/TD VACCINES (1 - Tdap) 1973 PNEUMOCOCCAL VACCINE 50+ (1 of 1 - PCV) 2004 ZOSTER VACCINE (1 of 2) 2004 Respiratory Syncytial Virus (RSV) Vaccine Pt: or over 60 yrs (1 - Risk 60-74 years 1-dose series) 2014 COVID-19 VACCINE ( - 2023-2 5 season) 2023 INFLUENZA VACCINE (#1) 2023 DEPRESSION SCREENING 03/21/2024 HEPATITIS C SCREENING Completed 06/10/2014 HEPATITIS B VACCINE Aged Out No longe r eligible based on patient's age to complete this topic HIB VACCINE Aged Out No longer eligi ble based on patient's age to complete this topic HPV VACCINE Aged Out No longer eligi ble based on patient's age to complete this topic MENINGOCOCCAL (Group B) VACCINE Aged Out No longer eligible based on patient's age to complete this topic MENINGOCOCCAL VACCINE Aged Out No anushka jose c eligible based on patient's age to complete this topic Procedures Procedure Name Priority Date/Time Associated Diagnosis Comments HEPATITIS C ANTIBODY Routine 06/10/2014 11:55 AM CDT from Last 3 Months or Most Recently Relevant to Health Maintenance Results * HEPATITIS C ANTIBODY (06/10/2014 11:55 AM CDT) Hepatitis C Antibody NON-REACTI VE NON-REACT [facility]) Signal/Cutoff 0.02 <1.00 [facility] ([facility]) Comment: Test Performed at: [facility] [address] [place] [address] GUERLINE MORSE DO,MPH 06/10/2014 11:5 5 AM CDT 06/10/2014 11:56 AM CDT Phil Houser MD LAB - CHEM ISTRY ORDERABLES [facility] ([facility]) from Last 3 Months or Most Recently Relevant to Health Maintenance Care Teams Visitor Services Technician Relationship Specialty Start Date End Date Amanda Hanks MD [address] [place] [phone] PCP - General Family Medicine 04/18/14
== END 2024-04-27 10:41 | disposition home or self-care (01) ==
PROVIDERS: PCP Family Medicine; Visit Provider Nurse Practitioner Family
DX: E13.9 Other specified diabetes mellitus without complications (principal)
CPT/HCPCS: 36415; 83036

== ENCOUNTER 2024-05-25 16:49 | Inpatient (IN) | payer MEDICARE, OTHER, SELFPAY ==
--- NOTE | ~2024-05-25 | CT_ITS ---
CT abdomen pelvis wo con Ordering provider: Chuck Izaguirre MD History: 69 years Female with . abdominal pain . Comparison: September 10, 2023 Technique: CT abdomen and pelvis without IV and without oral contrast. Automated exposure control and iterative reconstruction technique were employed. The dose-length product was 3117.41 mGy-cm. Findings: VISUALIZED LOWER CHEST: Normal. Minimal pericardial effusion. UPPER ABDOMINAL ORGANS: Liver: Fat infiltration. Hepatomegaly. Gallbladder: Distended with no stones. Spleen: Normal. Stomach/duodenum: Normal. Pancreas: Normal. Adrenals: Normal. Kidneys: Soft tissue density adjacent to the left kidney lower pole measuring 2.2 cm which may be a m ass or a complex cyst. Ultrasound evaluation advised. Tiny cyst in the right kidney upper pole. PELVIC ORGANS: The bladder is underfilled with Vigil's catheter seen in the bladder. BOWEL AND MESENTERY: Colon: No evidence of diverticulitis. Appendix is not demonstrated. Small Bowel: Normal. No obstruction. Peritoneum/mesentery: No free air or free fluid. No mesenteric lymphadenopathy. RETROPERITONEUM: Mild degenerative atheromatous disease of the abdominal aorta. No retroperitoneal lymphadenopathy. MUSCULOSKELETAL: Superficial soft tissues: The superficial soft tissues are normal. Bones: Age appropriate degenerative changes of the spine. Postoperative changes in the lower lumbar a ziggy. Bilateral sacroiliacs. Bilateral osteoarthritic changes more severe on the right side. Pubic sym physitis. IMPRESSION: No evidence of appendicitis, diverticulitis or intestinal obstruction. Fat infiltration of the liver. Hepatomegaly. Soft tissue density adjacent to the left kidney lower pole. Ultrasound evaluation advised. Distended gallbladder with no definite stones. Reviewed, dictated and finalized at location A. EDITOR IMPRESSION: No evidence of appendicitis, diverticulitis or intestinal obstruction. Fat infiltration of the liver. Hepatomegaly. Soft tissue density adjacent to the left kidney lower pole. Ultrasound evaluati on advised. Distended gallbladder with no definite stones.
--- NOTE | ~2024-05-25 | US_ITS ---
US renal BI Ordering provider: Micki Slaughter APRN History: . soft tissue density adjacent to left kidney . Comparison: None. Technique: Ultrasound bilateral kidneys. Findings: RIGHT KIDNEY: Measures 10x 4.7x 5.1 cm in length which is normal in size. No renal cysts. No renal ma ss or visualized echogenic stones. Otherwise, normal echotexture and contour. No hydronephrosis. Norm al renal cortical thickness. LEFT KIDNEY: Measures 11.4x 6x 5.5 cm in length which is normal in size. Simple cysts with the larges t measures 1.6 x 1.6 x 1.2 cm. No renal mass or visualized echogenic stones. Otherwise, normal echote xture and contour. No hydronephrosis. Normal renal cortical thickness. BLADDER: Vigil's catheter is seen. Ureteral jets were not seen bilaterally. IMPRESSION: Multiple left kidney cysts. Other appearances are unremarkable. Soft tissue density seen on CT is not well demonstrated. Reviewed, dictated and finalized at location A. TION BOATSWAIN'S MATE
--- OUTSIDE RECORDS SUMMARY | 2024-05-25 16:52 | XMS_ITS | Clinical Summary ---
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 Infection [...] (05/15/2021): Added automatically from request for surgery [id number] Closed displaced fracture of medial malleolus of right tibia 05/15/2021 Overview (05/25/2021): Added automatically from request for surgery [id number] Neurogenic bladder 04/17/2021 Overview (04/17/2021): Added automatically from request for surgery [id number] Assessment & Plan (09/03/2021 9:34 PM CDT): [...] 10/23/2020 Fracture of upper arm 10/22/2010 Immunizations Immunization Administration Dates Next Due DTaP 12/23/2014 Influenza, Quadrivalent, Hig h Dose, Preservative Free, Intrr 01/09/2021 Influenza, Quadrivalent, Spl it, Intramuscular 11/29/2018 Influenza, Quadrivalent, Spl it, Preservative Free, Intramuscular 12/05/2017 Influenza, Trivalent, IM (MDV) 7,12/23/2014,01/18/2014,04/02 Influenza, Trivalent, Preser vative Free, Intramuscular 11/29/2019,01/14/2016,12/22/2014 Influenza, Unspecified 01/09/2013 Pfizer SARS-CoV-2 Monovalent Vaccination (12+ Yrs) PURPLE 07/24/2020,07/03/2020 Tdap 12/22/2014,01/09/2013,02/16/2010 Surgical History Surgery Date Site/Laterality Comments SECTION 1981 VARICOSE VEIN SURGERY 03/21/1989 - 03/20/1990 Bilateral [...] often do you attend chur ch or buddhist services? 1 to 4 times per year 09/07/2021 Do you belong to any clubs o r organizations such as confucianism groups, unions, fraternal or athletic groups, or [...] place to sleep or slept in a [place] [facility] [place] (including now)? No 09/07/2021 Personal Safety Answer Date Recorded Getting School Help Needed Not on file 04/02 Comments No Sex and Gender Information Value Date Recorded Sex Assigned at Not on file Legal Sex Female 12:38 AM SITE INSPECTOR Gender Identity Not on file Sexual Orientation Not on file Obstetrics History Last Filed Vital Signs Vital Sign Reading Time Taken Comments Blood Pressure 126/76 02/03/2023 8:58 AM SITE INSPECTOR Pulse 69 02/03/2023 8:58 AM SITE INSPECTOR Temperature 36.7 C (98.1 F) 02/03/2023 8:58 AM SITE INSPECTOR Respiratory Rate 18 01/14/2022 9:20 AM CDT Oxygen Saturation 95% 09/15/2021 6:34 AM CDT Inhaled Oxygen Concentration - - Weight 129.7 kg (286 lb) 02/03/2023 8:58 AM SITE INSPECTOR Height 175.3 cm (5' 9) 02/03/2023 8:58 AM SITE INSPECTOR Body Mass Index 42.23 02/03/2023 8:58 AM SITE INSPECTOR Plan of Treatment Health Maintenance Due Date Last Done Comments Albumin Creatinine Ratio, Urine 1954 Breast Cancer Screening-Mammogram 1954 Colon Cancer Screening-Colonoscopy 1954 Depression Screening 1954 Hepatitis C Screening 1954 Osteoporosis Screening-Bone Density Scan 1954 Dilated Eye Exam 1954 Foot Exam 1954 Hepatitis B Screening 1972 Pneumococcal vaccine 65+ (1 of 2 - PCV) 1973 Zoster Vaccine (1 of 2) 2004 Well [...] history exists Medical Devices Implanted Type Area Pr Specialist Device Identifier Shelf Expiration Date Model / Serial / Lot [employer]hew/Richco/Ort ho [id number] Evos [id number] 16.3x1.7mm 13 Hole Low Profile Variable Angle - S0 - [id number] Implanted:Qty: 1 on 05/16/2021 by Lori Carnes MD at [facility] Plate Right: Ankle [employer]/ Ortho [id number] 06/26/2028 [id number] / 0 / [id number] [employer]/Rich[employer]/Ort ho [id number] Evos 3.5mm 48mm Self Tap Cortex Screw Bone Sterile - S0 - [id number] Implanted:Qty: 1 on 05/16/2021 by Lori Carnes MD at [facility] Screw Right: Ankle [employer]/ Ortho [id number] / 0 / 0 [employer]/Rich[employer]/Ort ho [id number] Evos 3.5mm 50mm Self Tap Cortex Screw Bone Sterile - S0 - [id number] Implanted:Qty: 1 on 05/16/2021 by Lori Carnes MD at [facility] Screw Right: Ankle [employer]/ Ortho [id number] / 0 / 0 [employer]Rich[employer]/Ort ho [id number] Evos Mini 2.7mm 4.5mm 12mm Self Tap Cortex T8 Screw Bone - S0 - [id number] Implanted:Qty: 1 on 05/16/2021 by Lori Carnes MD at [facility] Screw Right: Ankle [employer]/ Ortho [id number] / 0 / 0 [employer]Rich[employer]/Ort ho [id number] Evos Mini 2.7mm 4.5mm 13mm Self Tap Cortex T8 Screw Bone - S0 - [id number] Implanted:Qty: 1 on 05/16/2021 by Lori Carnes MD at [facility] Screw Right: Ankle [employer]/Rich[employer]/ Ortho [id number] / 0 / 0 [employer]hew/Rich[employer]/Ort ho [id number] Evos Mini 2.7mm 4.5mm 15mm Self Tap Cortex T8 Screw Bone - S0 - [id number] Implanted:Qty: 3 on 05/16/2021 by Lori Carnes MD at [facility] Screw Right: Ankle [employer]hew/Rich[employer]/ Ortho [id number] / 0 / 0 [employer]hew/Richco/Ort ho [id number] Evos 3.5mm 12mm Self Tap Cortex Screw Bone Sterile - S0 - [id number] Implanted:Qty: 4 on 05/16/2021 by Lori Carnes MD at [facility] Screw Right: Ankle [employer]hew/Rich[employer]/ Ortho [id number] / 0 / 0 Yuan [employer]hew/Richco/Ort ho [id number] Evos 3.5mm 46mm Self Tap Cortex Screw Bone Sterile - S0 - [id number] Implanted:Qty: 1 on 05/16/2021 by Lori Carnes MD at [facility] Screw Right: Ankle [employer]/Rich[employer]/ Ortho [id number] / 0 / 0 Rt Shoulder Pin Right: Shoulder Lumbar Spine Fusion Instrumemtation Spine Lumbar [employer]/Rich[employer]/Ort ho [id number] Evos 3.5mm 75mm Self Tap Cortex Screw Bone Sterile - [id number] Implanted:Qty: 1 on 05/28/2021 by Randall Camp MD at [facility] Right: Ankle [employer]hew/Rich[employer]/ Ortho [id number] / / Explanted Type Area Pr Specialist Device Identifier Shelf Expiration Date Model / Serial / Lot [employer] Nephew/Richco/O rtho [id number] Evos 2mm 14mm Provisional Pin Fixation Sterile - S0 - [id number] Explanted:Qty: 1 on 05/16/2021 at [facility] Pin Right: Ankle [employer]hew/Richco/Or tho [id number] / 0 / 0 Description:Temporary Placem ent; Provisional Fixation, only [employer]hew/Richco/O rtho [id number] Pin 25mm 2.5mm Fixation Evos Provisional Sterile - S0 - [id number] Explanted:Qty: 1 on 05/16/2021 at [facility] Pin Right: Ankle [employer]hew/Richco/Or tho [id number] / 0 / 0 Description:Temporary Placem ent; Provisional Fixation, only Yuan [employer]hew/Richco/O rtho [id number] Evos 3.5mm 15mm Self Tap Cortex Screw Bone Sterile - S0 - [id number] Explanted:Qty: 1 on 05/16/2021 at [facility] Screw Right: Ankle Yuan [employer] Nephew/Richco/Or tho [id number] / 0 / 0 Procedures Procedure Name Priority Date/Time Associated Diagnosis Comments EGFR Routine 09/11/2021 3:21 AM CDT HEMOGLOBIN A1C Routine 09/04/2021 4:18 AM CDT LIPID PANEL STAT 05/15/2021 1:38 PM SITE INSPECTOR from Last 3 Months or Most Recently [...] Inclusion of Race in Diagnosing Kidney Disease, MARCIA 2020). The CKD-EPI equation should not be used for patients with unstable renal function and has not been validated in children and those over 70. Current interpretive data was last reviewed 2021. Testing performed by: [address] [address] Blood 09/11/2021 3:21 AM CDT 09/11/2021 5:45 AM CDT Dipti López MD LAB BLOOD ORDERABLES Final Res ult Performing Organization Address [facility]/ZIP Co de Phone Number [address] [place] [employer] [place] [address] * (ABNORMAL) Hemoglobin A1c (09/04/2021 4:18 AM CDT) Hgb A1C 6.4(H) 4.0 - 5.6 % [facility] Comment:Testing performed by : [address] [address] Estimated Average Glucose 137 mg/dL [facility] Comment: The ADA recommends reporting an estimated Average Glucose (eAG) with all Hemoglobin A1c results using the equation derived from a study of 507 normal and diabetic adults. Minority populations were underrepresented and children were not included. (Diabetes Care 31:7166-7051, 2008). The eAG is not equivalent to a fasting glucose. Testing performed by: [address] [address] Blood 09/04/2021 4:18 AM CDT 09/04/2021 5:27 AM CDT Adeline Bo DO LAB BLOOD ORDERABLES Final Re sult Performing Organization Address City/[facility]/ZIP Co de Phone Number [facility] [address] [facility] [place] [address] * (ABNORMAL) Lipid panel (05/15/2021 1:38 PM SITE INSPECTOR) Cholesterol 155 30 - 199 mg/dL [facility] Comment: Interpretive Data Ages < [...] revised on 2017. Triglycerides 372(H) <=149 mg/dL [facility] Comment: Interpretive Data Ages < or [...] revised on 2017. HDL 29(L) >=40 mg/dL [facility] Comment: Interpretive Data Ages < or [...] on 2017. LDL, calculated 52 <=129 mg/dL [facility] Comment: Interpretive Data Ages < or [...] on 2017. Non-HDL Cholesterol 126 mg/dL [facility] Comment: Interpretive Data Ages < or = [...] revised on 2017. Chol/HDL ratio 5 [facility] Blood 05/15/2021 1:38 PM SITE INSPECTOR 05/15/2021 1:48 PM SITE INSPECTOR Radha Lara MD LAB BLOOD ORDERABLES Raisa davila Result [facility] One [facility] Department [place] [address] from Last 3 Months or Most Recently Relevant to Health Maintenance Insurance AET MEDICARE [facility] MEDICARE [facility] AETNA MEDICARE Advance Directives For more information, please contact: [phone] * Full Code (Latest Code Status on File) Date Activated Date Inactivated Comments 05/15/2021 10:09 PM 06/03/2021 10:44 PM Care Teams Process Control Programmer Relationship Specialty Start Date End Date Carol Staples MD [address] [place] [address] PCP - General Family Medicine 07/18/20
--- OUTSIDE RECORDS SUMMARY | 2024-05-25 16:52 | XMS_ITS | Patient Health Summary ---
Author Organization [facility] Address [address] [place] [address] Care Team Providers Care Gear Shaper Name Role Phone Amanda Hanks MD Primary Care Provider [phone] Note from [facility],non-owned Affiliates and Associated Physician Practices is amultiple site organization consisting of ambulatory clinics and hospital sitesin [place], [place], [place] and [place]. This disclosure is being madepursuant to the Care Everywhere program and may not contain all information available regarding this patient. Last updated 17.[facility] [employer] Allergies No known active allergies Medications * Be aware that medications may not be up to date on this document. Alwaysverify current medications with the patient. * metFORMIN (GLUCOPHAGE) 500 MG tablet Take 500 mg by mouth 2 times daily with morning and evening meal. * Insulin Detemir (LEVEMIR FLEXTOUCH SC) Inject 65 Units subcutaneously. * Cholecalciferol (VITAMIN D3) 07048 UNITS CAPS capsule Take 50,000 Units by [...] Bisacodyl (DULCOLAX PO) Take by mouth. * Iriosdv-Sqtvorqsrnkmu-Mbryvzwb (EXCEDRIN PO) Take by mouth. PRN * [...] Comments Blood Pressure 170/92 04/08/2014 2:21 PM THEATER TEACHER Pulse 116 04/08/2014 2:21 PM THEATER TEACHER Temperature 36.9 C (98.5 F) 04/08/2014 2:21 PM THEATER TEACHER Respiratory Rate 18 04/08/2014 2:21 PM THEATER TEACHER Oxygen Saturation - - Inhaled Oxygen Concentration - - Weight 131.5 kg (290 lb) 05/20/2014 12:04 PM THEATER TEACHER Height 175.3 cm (5' 9) 05/20/2014 12:04 PM THEATER TEACHER Body Mass Index 42.83 05/20/2014 12:04 PM THEATER TEACHER Procedures * ZOJJV-6-XLPWLLVEBXU BLOOD PHENOTYPING PANEL(Performed 06/10/2014) * MITOCHONDRIAL ANTIBODY SCREEN(Performed 06/10/2014) * SMOOTH MUSCLE ANTIBODY(Performed 06/10/2014) * JUDE BLOOD TITER(Performed 06/10/2014) * JUDE BLOOD SCREEN W/REFLEX TITER(Performed 06/10/2014) * CERULOPLASMIN(Performed 06/10/2014) * XGEXN-6-TWMNBAYXLWS BLOOD(Performed 06/10/2014) * HEPATITIS B SURFACE ANTIBODY(Performed [...] Mitochondria M2 Antibody IgG <20.0 U [facility] ([facility]) Comment: Reference Range: NEGATIVE: < OR = 20.0 EQUIVOCAL: 20.1-24.9 POSITIVE: > OR = 25.0 REPORT COMMENT: IS PATIENT ON HEPARIN?->N Test Performed at: [facility] [address] [place] [address] LOLA CANO MD PHD 06/10/2014 11:5 5 AM CDT 06/10/2014 11:56 AM CDT Phil Houser MD LAB - CHEM ISTRY ORDERABLES [facility] ([facility]) * NIMGJ-4-JHDLUKWQBIR BLOOD PHENOTYPING PANEL (06/10/2014 11:55 AM CDT) Pathologist [facility] Vsptw-0-Gjfiussue in Phenotype SEE NOTE [facility] ([facility]) Comment: THIS PATIENT'S DWNXR-6-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 90% of normal individuals have the MM phenotype, with normal quantitative AAT levels. Many phenotypic patterns have been described, including deficiency states with F, S, Z, or other alleles. As a general estimation, compared to M allele of 100% of normal B-6-Vtzlatwxmss protein, the S allele produces approximately 60% and the Z allele 20%. For example, an MS phenotype would have about 80% of normal F-4-Ztofsjnvrlr protein level, a 50% contribution from the M allele and 30% from the S allele. A ZZ phenotype would have about 20% of normal levels. The F allele has normal U-0-Psigkodkwfw levels, but the kinetics of elastase inhibition is not as efficient as an M allele product; F alleles should be considered functionally mildly deficient. REPORT COMMENT: IS PATIENT ON HEPARIN?->N Test Performed at: [facility] [address] [place] [address] LOLA CANO MD PHD 06/10/2014 11:5 5 AM CDT 06/10/2014 11:56 AM CDT Phil Houser MD LAB - CHEM ISTRY ORDERABLES Performing Organization Address [facility] de Phone Number [facility] ([facility]) * (ABNORMAL) JUDE BLOOD TITER (06/10/2014 11:55 AM CDT) Pathologist [facility] JUDE Pattern #1 ATYPICAL SPECKLED(A) [facility] ([facility]) JUDE Pattern #1 1:1280(H) titer [facility] ([facility]) Comment: Reference Range <1:40 Negative 1:40-1:80 Low Antibody Level >1:80 Elevated Antibody Level REPORT COMMENT: IS PATIENT ON HEPARIN?->N Test Performed at: [facility] [address] [place] [address] GUERLINE MORSE DO,MPH 06/10/2014 11:5 5 AM CDT 06/10/2014 11:56 AM CDT Phil Houser MD LAB - CHEM ISTRY ORDERABLES Performing Organization Address [facility]/ZIP Co de Phone Number [facility] ([facility]) * (ABNORMAL) JUDE BLOOD SCREEN W/REFLEX TITER (06/10/2014 11:55 AM CDT) JUDE Screen POSITIVE( A) NEGATIVE [facility] ([facility]) Comment: REPORT COMMENT: IS PATIENT ON HEPARIN?->N Test Performed at: [place] [address] GUERLINE MORSE DO,MPH 06/10/2014 11:5 5 AM CDT 06/10/2014 11:56 AM CDT Phil Houser MD LAB - CHEM ISTRY ORDERABLES Performing Organization Address [facility]/ZIP Co de Phone Number [facility] ([facility]) * CERULOPLASMIN (06/10/2014 11:55 AM CDT) Ceruloplasmin 31 18 - 53 mg/dL [facility] ([facility]) Comment: REPORT COMMENT: IS PATIENT ON HEPARIN?->N Test Performed at: [place] [address] GUERLINE MORSE DO,MPH 06/10/2014 11:5 5 AM CDT 06/10/2014 11:56 AM CDT Phil Houser MD LAB - CHEM ISTRY ORDERABLES Performing Organization Address [facility] de Phone Number [facility] ([facility]) * WGPGV-5-HVZQCKBEGXM BLOOD (06/10/2014 11:55 AM CDT) Aqfzu-4-Rrjelvym sin 123 83 - 199 mg/dL [facility] ([facility]) Comment: Test Performed at: [facility] [address] GUERLINE MORSE DO,MPH 06/10/2014 11:5 5 AM CDT 06/10/2014 11:56 AM CDT Phil Houser MD LAB - CHEM ISTRY ORDERABLES Performing Organization Address City/[facility]/ZIP Co de Phone Number [facility] ([facility]) * SMOOTH MUSCLE ANTIBODY (06/10/2014 11:55 AM CDT) Pathologist [facility] Actin Antibody IgG <20 <20 U [facility] ([facility]) Comment: Reference Range: <20 U: Negative >or=20 [...] IS PATIENT ON HEPARIN?->N Test Performed at: [employer] [address] KADY BRYANT MD 06/10/2014 11:5 5 AM CDT 06/10/2014 11:56 AM CDT Phil Houser MD LAB - SERO LOGY ORDERABLES [facility] ([facility]) * (ABNORMAL) CBC W AUTO DIFFERENTIAL (06/10/2014 11:55 AM CDT) Pathologist [facility] WBC 6.3 3.8 - 10.8 Thousand/u L [facility] ([facility]) RBC 4.27 3.80 - 5.10 Million/uL [facility] ([facility]) Hemoglobin 12.0 11.7 - 15.5 g/dL [facility] ([facility]) Hematocrit 38.0 35.0 - 45.0 % [facility] ([facility]) MCV 89.1 80.0 - 100.0 fL [facility] ([facility]) MCH 28.0 27.0 - 33.0 pg [facility] ([facility]) MCHC 31.5(L) 32.0 - 36.0 g/dL [facility] ([facility]) RDW-CV 16.8(H) 11.0 - 15.0 % [facility] ([facility]) Platelet 240 140 - 400 Thousand/u L [facility] ([facility]) Neutrophils Absolute 4,694 1,500 - 7,800 cells/uL [facility] ([facility]) Lymphocyte Absolute Manual 1,153 850 - 3,900 cells/uL [facility] ([facility]) Monocytes Absolute 296 200 - 950 cells/uL [facility] ([facility]) Eosinophils Absolute 132 15 - 500 cells/uL [facility]) Basophil Absolute Manual 25 0 - 200 cells/uL [facility]) Neutrophils % 74.5 % [facility]) Lymphocytes % 18.3 % [facility]) Monocytes % 4.7 % [facility]) Eosinophils % 2.1 % [facility]) Basophil % 0.4 % [facility]) Comment: REPORT COMMENT: IS PATIENT ON HEPARIN?->N Test Performed at: [facility] [address] [place] [address] GUERLINE MORSE DO,MPH 06/10/2014 11:5 5 AM CDT 06/10/2014 11:56 AM CDT Phil Houser MD LAB - ARTURO TOLOGY ORDERABLES [facility] ([facility]) * (ABNORMAL) COMPREHENSIVE METABOLIC PANEL (06/10/2014 11:55 AM CDT) Glucose 152(H) 65 - 99 mg/dL [facility] ([facility]) Comment: Fasting reference interval BUN 30(H) 7 - 25 mg/dL [facility] ([facility]) Creatinine 1.07(H) 0.50 - 0.99 mg/dL [facility] ([facility]) Comment: For patients >49 years of age, the reference limit for Creatinine is approximately 13% higher for people identified as -[place]. eGFR non- 56(L) > OR = 60 mL/min/1. 73m2 [facility] ([facility]) eGFR 65 > OR = 60 mL/min/1. 73m2 [facility] ([facility]) BUN/Creatinine Ratio 28(H) 6 - 22 (calc) [facility] ([facility]) Sodium 138 135 - 146 mmol/L [facility] ([facility]) Potassium 4.9 3.5 - 5.3 mmol/L [facility] ([facility]) Chloride 99 98 - 110 mmol/L [facility] ([facility]) CO2 26 19 - 30 mmol/L [facility] ([facility]) Calcium 9.5 8.6 - 10.4 mg/dL [facility] ([facility]) Protein Total 7.0 6.1 - 8.1 g/dL [facility] ([facility]) Albumin 4.1 3.6 - 5.1 g/dL [facility] ([facility]) Globulin 2.9 1.9 - 3.7 g/dL (calc) [facility] ([facility]) Albumin/Globulin Ratio 1.4 1.0 - 2.5 (calc) [facility] ([facility]) Bilirubin Total 0.3 0.2 - 1.2 mg/dL [facility] ([facility]) Alkaline Phosphatase 113 33 - 130 U/L [facility] ([facility]) AST 24 10 - 35 U/L [facility] ([facility]) ALT 31(H) 6 - 29 U/L [facility] ([facility]) Comment: REPORT COMMENT: IS PATIENT ON HEPARIN?->N Test Performed at: [employer] [id number] [place] [address] GUERLINE MORSE DO,MPH 06/10/2014 11:5 5 AM CDT 06/10/2014 11:56 AM CDT Phil Houser MD LAB - CHEM ISTRY ORDERABLES Performing Organization Address City/[facility]/ZIP Co de Phone Number [facility] ([facility]) * IRON + TIBC PANEL (06/10/2014 11:55 AM CDT) Pathologist [facility] Iron 59 45 - 160 mcg/dL [facility] ([facility]) TIBC 341 250 - 450 mcg/dL [facility] ([facility]) Iron Saturation 17 11 - 50 % (calc) [facility] ([facility]) Comment: Test Performed at: [employer] [address] [place] [id number] GUERLINE MORSE DO,MPH 06/10/2014 11:5 5 AM CDT 06/10/2014 11:56 AM CDT Phil Houser MD LAB - CHEM ISTRY ORDERABLES [facility] ([facility]) * HEPATITIS B SURFACE ANTIBODY (06/10/2014 11:55 AM CDT) Pathologist [facility] Hepatitis B Virus Surface Antibody <5 mIU/mL [facility] ([facility]) Comment: Patient does not have immunity to hepatitis B virus. Effective July 30, 2013 this test is being performed using the [employer] Chemiluminesence method. Quantitative results from this method should not be used interchangeably with other methods. REPORT COMMENT: IS PATIENT ON HEPARIN?->N Test Performed at: [place] [address] GUERLINE MORSE DO,MPH 06/10/2014 11:5 5 AM CDT 06/10/2014 11:56 AM CDT Phil Houser MD LAB - CHEM ISTRY ORDERABLES Performing Organization Address [facility]/ZIP Co de Phone Number [facility] ([facility]) * HEPATITIS B CORE ANTIBODY (06/10/2014 11:55 AM CDT) Hepatitis B Core Virus Antibody Total NON-REACTI VE NON-REACT [facility]ANI[facility] ([facility]) Comment: Test Performed at: [place] [address] GUERLINE MORSE DO,MPH 06/10/2014 11:5 5 AM CDT 06/10/2014 11:56 AM CDT Phil Houser MD LAB - CHEM ISTRY ORDERABLES [facility] ([facility]) * HEPATITIS B SURFACE ANTIGEN W RFLX CONFIRMATION (06/10/2014 11:55 AM CDT) Hepatitis B Virus Surface Antigen NON-REACTI VE NON-REACT [facility]ANI[facility]) Comment: Test Performed at: [place] [address] GUERLINE MORSE DO,MPH 06/10/2014 11:5 5 AM CDT 06/10/2014 11:56 AM CDT Phil Houser MD LAB - CHEM ISTRY ORDERABLES Performing Organization Address [facility] de Phone Number [facility] ([facility]) * HEPATITIS C ANTIBODY (06/10/2014 11:55 AM CDT) Hepatitis C Antibody NON-REACTI VE NON-REACT [facility]ANI[facility] ([facility]) Signal/Cutoff 0.02 <1.00 [facility] ([facility]) Comment: Test Performed at: [facility] [employer] [place] [address] [place] [address] GUERLINE MORSE DO,MPH 06/10/2014 11:5 5 AM CDT 06/10/2014 11:56 AM CDT Phil Houser MD LAB - CHEM ISTRY ORDERABLES Performing Organization Address [facility] de Phone Number [facility] ([facility]) * HEPATITIS A ANTIBODY (06/10/2014 11:55 AM CDT) Hepatitis A Virus Antibody Total NON-REACTI VE NON-REACT DANI[facility] ([facility]) Comment: Test Performed at: [facility] [place] [address] [place] [address] GUERLINE MORSE DO,MPH 06/10/2014 11:5 5 AM CDT 06/10/2014 11:56 AM CDT Phil Houser MD LAB - CHEM ISTRY ORDERABLES Performing Organization Address [facility] de Phone Number [facility] ([facility]) * IMAGING/RADIOLOGY/XRAY RESULTS ORDER (03/29/2014) Only the most recent of2 resultswithin the time period is included. Anatomical Region Laterality Modality Other Provider Unknown IMAGING Care Teams Gear Shaper Relationship Specialty Start Date End Date Amanda Hnaks MD [address] [place] [address] [address] [place] [address] PCP - General Family Medicine 04/18/14
--- OUTSIDE RECORDS SUMMARY | 2024-05-25 16:52 | XMS_ITS | Clinical Summary ---
Author Organization [facility] Address [address] [place] [id number] Care Team Providers Care Nylon Mender Name Role Phone None, Provider MD Primary [...] P M CDT Height 172.7 cm (5' 8) 11/03/2023 12:33 PM CDT Body Mass Index [...] this topic Insurance [employer] Care Teams Nylon Mender Relationship Specialty Start Date End Date None, Provider, MD PCP - General UNKNOWN PHYSICIAN SPECIALTY 11/03/23
--- OUTSIDE RECORDS SUMMARY | 2024-05-25 16:52 | XMS_ITS | Referral Summary ---
Author Organization [facility] Address [facility] [place] [address] Care Team Providers Care A And P Technician Name Role Phone Carol Staples MD Primary [...] (05/15/2021): Added automatically from request for surgery [id number] Closed displaced fracture of medial malleolus of right tibia 05/15/2021 Overview (05/25/2021): Added automatically from request for surgery [id number] Neurogenic bladder 04/17/2021 Overview (04/17/2021): Added automatically from request for surgery [id number] Assessment & Plan (09/03/2021 9:34 PM CDT): [...] week 09/07/2021 How often do you attend [facility] or mormonism services? 1 to 4 times per year 09/07/2021 Do you belong to any clubs o r organizations such as adventism groups, unions, fraternal or athletic groups, or [...] place to sleep or slept in a longterm (including now)? No 09/07/2021 Personal Safety Answer Date Recorded Getting School Help Needed Not on file 04/02 Comments No Sex and Gender Information Value Date Recorded Sex Assigned at Not on file Legal Sex Female 12:38 AM DISTRIBUTION WAREHOUSE MANAGER Gender Identity Not on file Sexual Orientation Not on file Last Filed Vital Signs Vital Sign Reading Time Taken Comments Blood Pressure 126/76 02/03/2023 8:58 AM DISTRIBUTION WAREHOUSE MANAGER Pulse 69 02/03/2023 8:58 AM DISTRIBUTION WAREHOUSE MANAGER Temperature 36.7 C (98.1 F) 02/03/2023 8:58 AM DISTRIBUTION WAREHOUSE MANAGER Respiratory Rate 18 01/14/2022 9:20 AM CDT Oxygen Saturation 95% 09/15/2021 6:34 AM CDT Inhaled Oxygen Concentration - - Weight 129.7 kg (286 lb) 02/03/2023 8:58 AM DISTRIBUTION WAREHOUSE MANAGER Height 175.3 cm (5' 9) 02/03/2023 8:58 AM DISTRIBUTION WAREHOUSE MANAGER Body Mass Index 42.23 02/03/2023 8:58 AM DISTRIBUTION WAREHOUSE MANAGER Plan of Treatment Not on file Medical Devices Implanted Type Area Supervisor Coal Handling Device Identifier Shelf Expiration Date Model / Serial / Lot [employer]/Ort [id number] [id number] 16.3x1.7mm 13 Hole Low Profile Variable Angle - S0 - [id number] Implanted:Qty: 1 on 05/16/2021 by Lori Carnes MD at [facility] Plate Right: Ankle [employer]/ Ortho [id number] 06/26/2028 [id number] / 0 / [id number] [employer]/Ort ho [id number] Evos 3.5mm 48mm Self Tap Cortex Screw Bone Sterile - S0 - [id number] Implanted:Qty: 1 on 05/16/2021 by Lori Carnes MD at [facility] Screw Right: Ankle [employer]/ Ortho [id number] / 0 / 0 [employer]/Ort ho [id number] Evos 3.5mm 50mm Self Tap Cortex Screw Bone Sterile - S0 - [id number] Implanted:Qty: 1 on 05/16/2021 by Lori Cranes MD at [facility] Screw Right: Ankle [employer]/ Ortho [id number] / 0 / 0 [employer]/Ort ho [id number] Evos Mini 2.7mm 4.5mm 12mm Self Tap Cortex T8 Screw Bone - S0 - [id number] Implanted:Qty: 1 on 05/16/2021 by Lori Carnes MD at [facility] Screw Right: Ankle [employer]/ Ortho [id number] / 0 / 0 [employer]/Ort ho [id number] Evos Mini 2.7mm 4.5mm 13mm Self Tap Cortex T8 Screw Bone - S0 - [id number] Implanted:Qty: 1 on 05/16/2021 by Lori Carnes MD at [facility] Screw Right: Ankle [employer]/ Ortho [id number] / 0 / 0 [employer]/Ort ho [id number] Evos Mini 2.7mm 4.5mm 15mm Self Tap Cortex T8 Screw Bone - S0 - [id number] Implanted:Qty: 3 on 05/16/2021 by Lori Carnes MD at [facility] Screw Right: Ankle [employer]/ Ortho [id number] / 0 / 0 [employer]/Ort ho [id number] Evos 3.5mm 12mm Self Tap Cortex Screw Bone Sterile - S0 - [id number] Implanted:Qty: 4 on 05/16/2021 by Lori Carnes MD at [facility] Screw Right: Ankle [employer]/ Ortho [id number] / 0 / 0 [employer]/Ort ho [id number] Evos 3.5mm 46mm Self Tap Cortex Screw Bone Sterile - S0 - [id number] Implanted:Qty: 1 on 05/16/2021 by Lori Carnes MD at [facility] Screw Right: Ankle [employer]/ Ortho [id number] / 0 / 0 Rt Shoulder Pin Right: Shoulder Lumbar Spine Fusion Instrumemtation Spine Lumbar [employer]/Ort ho [id number] Evos 3.5mm 75mm Self Tap Cortex Screw Bone Sterile - [id number] Implanted:Qty: 1 on 05/28/2021 by Randall Camp MD at [facility] Right: Ankle [employer]/ Ortho [id number] / / Explanted Type Area Supervisor Coal Handling Device Identifier Shelf Expiration Date Model / Serial / Lot [employer]Rich[employer]/O rtho [id number] Evos 2mm 14mm Provisional Pin Fixation Sterile - S0 - [id number] Explanted:Qty: 1 on 05/16/2021 at [facility] Pin Right: Ankle [employer]/Or tho [id number] / 0 / 0 Description:Temporary Placem ent; Provisional Fixation, only [employer]/O rtho [id number] Pin 25mm 2.5mm Fixation Evos Provisional Sterile - S0 - [id number] Explanted:Qty: 1 on 05/16/2021 at [facility] Pin Right: Ankle [employer]/Or tho [id number] / 0 / 0 Description:Temporary Placem ent; Provisional Fixation, only [employer]/O rtho [id number] Evos 3.5mm 15mm Self Tap Cortex Screw Bone Sterile - S0 - [id number] Explanted:Qty: 1 on 05/16/2021 at [facility] Screw Right: Ankle [employer]/Or tho [id number] / 0 / 0 Procedures Procedure Name Priority Date/Time Associated Diagnosis Comments EGFR Routine 09/11/2021 3:21 AM CDT HEMOGLOBIN A1C Routine 09/04/2021 4:18 AM CDT LIPID PANEL STAT 05/15/2021 1:38 PM DISTRIBUTION WAREHOUSE MANAGER from Last 3 Months or Most Recently [...] was last reviewed 2021. Testing performed by: [facility], [address] [place] [address], [place]., [address] Blood 09/11/2021 3:21 AM CDT 09/11/2021 5:45 AM CDT Dipti López MD LAB BLOOD ORDERABLES Final Res ult Performing Organization Address [facility] Co de Phone Number [facility] [address] [place] [address] * (ABNORMAL) Hemoglobin A1c (09/04/2021 4:18 AM CDT) Hgb A1C 6.4(H) 4.0 - 5.6 % [facility] Comment:Testing performed by : [address] [address] Estimated Average Glucose 137 mg/dL [facility] Comment: The ADA recommends reporting an estimated Average Glucose (eAG) with all Hemoglobin A1c results using the equation derived from a study of 507 normal and diabetic adults. Minority populations were underrepresented and children were not included. (Diabetes Care 31:4218-5516, 2008). The eAG is not equivalent to a fasting glucose. Testing performed by: [address] [address] Blood 09/04/2021 4:18 AM CDT 09/04/2021 5:27 AM CDT Adeline Bo DO LAB BLOOD ORDERABLES Final Re sult Performing Organization Address [facility] Co de Phone Number [facility] [address] [place] [address] * (ABNORMAL) Lipid panel (05/15/2021 1:38 PM DISTRIBUTION WAREHOUSE MANAGER) Cholesterol 155 30 - 199 mg/dL [facility] Comment: Interpretive Data Ages [...] revised on 2017. Triglycerides 372(H) <=149 mg/dL [facility] Comment: Interpretive Data Ages < or [...] revised on 2017. HDL 29(L) >=40 mg/dL [facility] Comment: Interpretive Data Ages < or [...] on 2017. LDL, calculated 52 <=129 mg/dL [facility] Comment: Interpretive Data Ages < or [...] revised on 2017. Non-HDL Cholesterol 126 mg/dL [facility] Comment: Interpretive Data Ages < or [...] revised on 2017. Chol/HDL ratio 5 [facility] Blood 05/15/2021 1:38 PM DISTRIBUTION WAREHOUSE MANAGER 05/15/2021 1:48 PM DISTRIBUTION WAREHOUSE MANAGER us Radha Lara MD LAB BLOOD ORDERABLES Raisa l Result [facility] Department [place] [address] from Last 3 Months or Most Recently Relevant to Health Maintenance Insurance [facility] MEDICARE [facility] [place] [address] [facility] [address] [facility] MEDICARE Advance Directives For more information, please contact: [phone] * Full Code (Latest Code Status on File) Date Activated Date Inactivated Comments 05/15/2021 10:09 PM 06/03/2021 10:44 PM Care Teams A And P Technician Relationship Specialty Start Date End Date Carol Staples MD [address] [place], [place] [id number] PCP - General Family Medicine 07/18/20
--- OUTSIDE RECORDS SUMMARY | 2024-05-25 16:52 | XMS_ITS | Referral Summary ---
Author Organization [facility] [employer] [facility] Address [address] [place] [address] Care Team Providers Care Dampener Operator Name Role Phone Amanda Hanks MD Primary Care Provider [phone] Source Comments [facility],non-owned Affiliates and Associated Physician Practices is [facility] organization consisting of ambulatory clinics and hospital sitesin [place], [place], [place] and [place]. This disclosure is being madepursuant to the Care Everywhere program and may not contain all information available regarding this patient. Last updated 17.[facility] Allergies No known active allergies Medications * [...] 65 Units subcutaneously. Active Cholecalciferol (VITAMIN D3) 11140 UNITS CAPS capsule Take 50,000 Units by [...] Comments Blood Pressure 170/92 04/08/2014 2:21 PM LOSS CONTROL CONSULTANT Pulse 116 04/08/2014 2:21 PM LOSS CONTROL CONSULTANT Temperature 36.9 C (98.5 F) 04/08/2014 2:21 PM LOSS CONTROL CONSULTANT Respiratory Rate 18 04/08/2014 2:21 PM LOSS CONTROL CONSULTANT Oxygen Saturation - - Inhaled Oxygen Concentration - - Weight 131.5 kg (290 lb) 05/20/2014 12:04 PM LOSS CONTROL CONSULTANT Height 175.3 cm (5' 9) 05/20/2014 12:04 PM LOSS CONTROL CONSULTANT Body Mass Index 42.83 05/20/2014 12:04 PM LOSS CONTROL CONSULTANT Plan of Treatment Not on file Procedures Procedure Name Priority Date/Time Associated Diagnosis Comments HEPATITIS C ANTIBODY Routine 06/10/2014 11:55 AM CDT from Last 3 Months or Most Recently Relevant to Health Maintenance Results * HEPATITIS C ANTIBODY (06/10/2014 11:55 AM CDT) Hepatitis C Antibody NON-REACTI VE NON-REACT [facility] ([facility]) Signal/Cutoff 0.02 <1.00 [facility] ([facility]) Comment: Test Performed at: [facility] [address] [facility] [place] [address] GUERLINE MORSE DO,MPH 06/10/2014 11:5 5 AM CDT 06/10/2014 11:56 AM CDT Phil Houser MD LAB - CHEM ISTRY ORDERABLES [facility] ([facility]) from Last 3 Months or Most Recently Relevant to Health Maintenance Care Teams Dampener Operator Relationship Specialty Start Date End Date Amanda Hanks MD [address] [place] [address] [address] [place] [address] PCP - General Family Medicine 04/18/14
--- OUTSIDE RECORDS SUMMARY | 2024-05-25 16:52 | XMS_ITS | Clinical Summary ---
Author Organization [facility] Address [address] [place] [address] Care Team Providers Care Supervisor Wrapping Room Name Role Phone Amanda Hanks MD Primary Care Provider [phone] Source Comments [facility],non-owned Affiliates and Associated Physician Practices is [facility] site organization consisting of ambulatory clinics and hospital sitesin [place], [place], [place] and [place]. This disclosure is being madepursuant to the Care Everywhere program and may not contain all information available regarding this patient. Last updated 17.[facility] Allergies No known active allergies Medications * [...] 65 Units subcutaneously. Active Cholecalciferol (VITAMIN D3) 21310 UNITS CAPS capsule Take 50,000 Units by [...] Comments Blood Pressure 170/92 04/08/2014 2:21 PM LAPEL PADDER BLINDSTITCH Pulse 116 04/08/2014 2:21 PM LAPEL PADDER BLINDSTITCH Temperature 36.9 C (98.5 F) 04/08/2014 2:21 PM LAPEL PADDER BLINDSTITCH Respiratory Rate 18 04/08/2014 2:21 PM LAPEL PADDER BLINDSTITCH Oxygen Saturation - - Inhaled Oxygen Concentration - - Weight 131.5 kg (290 lb) 05/20/2014 12:04 PM LAPEL PADDER BLINDSTITCH Height 175.3 cm (5' 9) 05/20/2014 12:04 PM LAPEL PADDER BLINDSTITCH Body Mass Index 42.83 05/20/2014 12:04 PM LAPEL PADDER BLINDSTITCH Plan of Treatment Health Maintenance Due Date [...] C Antibody NON-REACTI VE NON-REACT [facility] ([facility]) Signal/Cutoff 0.02 <1.00 [facility] ([facility]) Comment: Test Performed at: [facility] [place] [address] [place] [address] GUERLINE MORSE DO,MPH 06/10/2014 11:5 5 AM CDT 06/10/2014 11:56 AM CDT Phil Houser MD LAB - CHEM ISTRY ORDERABLES [facility] ([facility]) from Last 3 Months or Most Recently Relevant to Health Maintenance Care Teams Supervisor Wrapping Room Relationship Specialty Start Date End Date Amanda Hanks MD [address] [place] [phone] PCP - General Family Medicine 04/18/14
[2024-05-25 16:56] VITALS: BP 149/77; PULSE 89; RESP 22; TEMP 36.7; O2SAT 98
--- NOTE | 2024-05-25 17:33 | ED_ITS ---
HPI - Female Genitourinary General Chief complaint: Urogenital-Female <Radha Tran APRN - Last Filed: 05/25/24 18:48> Stated complaint: urinating around catheter and bladder spasms <Radha Tran APRN - Last Filed: 05/25/24 18:48> Time Seen by Provider: 05/25/24 17:30 <Radha Tran APRN - Last Filed: 05/25/24 18:48> Focused HPI: Patient is a 69-year-old male who presents to the ER with complaints of bladder pain. She reports she has a Vigil catheter due to a neurogenic bladder. Patient reports her pain started suddenly around 2:00 a.m. this afternoon. Her home health care nurses attempted to irrigate the catheter with no success. Patient reports her Vigil catheter was changed out on Tuesday, 5 days ago, so her home healthcare nurse did not replace it today. She denies any recent fevers, back pain, or shortness of breath. Patient reports she has a urologist who she saw approximately 3 months ago. GENERAL: Well-appearing, well-nourished, and in acute distress d/t pain. HEAD: Normocephalic, atraumatic. CHEST: Clear to auscultation. ?No respiratory distress. HEART: Regular rate and rhythm.? NEURO: ?Alert and oriented x3. Crying out in pain during examination. Patient screened in triage and initial orders placed.? ?Additional care and disposition to be based upon?diagnostic testing and treatment. <Radha Tran APRN - Last Filed: 05/25/24 18:48> History of Present Illness HPI Narrative: Patient is a 69-year-old female who presents emergency department with chief complaint of bladder pain. Patient reports she has prior history of neurogenic bladder has a chronic indwelling Vigil and started having discomfort after she has been having her bladder to Vigil changed. The patient reports afternoon the symptoms got worse reported that the nurse attempted to irrigate her Vigil at home no improvement the patient reports that her urine is cloudy < Chuck Izaguirre MD - Last Filed: 05/26/24 02:01> Related Data Home medications: Home Medications ?Medication ?Instructions ?Recorded ?Confirmed ?Last Taken ?Type acetaminophen 500 mg tablet 1,000 mg PO BID Pain 07/10/20 05/14/24 05/18/23 07:00 History (Tylenol Extra Strength) multivit with minerals-iron 18 1 tablet PO DAILY 03/06/21 05/14/24 05/18/23 07:00 History mg-folic ac 400 mcg-vit K 25 mcg tablet (Adults Multivitamin) aspirin 81 mg tablet,delayed 81 mg PO BID 10/30/21 05/14/24 05/18/23 07:00 History release clotrimazole-betamethasone 1 1 applic topical BID 05/18/23 05/14/24 05/18/23 07:00 History %-0.05 % topical cream dextrin 3 gram/4 gram oral powder 2 tsp PO TID PRN Constipation 05/18/23 05/14/24 05/18/23 07:00 History (Clear Fiber) atorvastatin 10 mg tablet 10 mg PO DAILY 02/02/24 05/14/24 Unknown History ferrous sulfate 325 mg (65 mg 325 mg PO BID 02/14/24 05/14/24 Unknown History iron) tablet lactobacillus combination no.9 1 cap PO DAILY 02/14/24 05/14/24 Unknown History nystatin 100,000 unit/gram topical 1 applic topical BID 02/14/24 05/14/24 Unknown History cream memantine ER 28 mg-donepezil 10 mg 1 cap PO HS 03/23/24 05/14/24 Unknown History capsule sprinkle,ext.release 24 hr (Namzaric) oxybutynin chloride 5 mg 5 mg PO DAILY PRN bladder spasms 03/23/24 05/14/24 Unknown History tablet,extended release 24 hr <Radha Tran, CONTINUOUS MINING MACHINE LODE MINER - Last Filed: 05/25/24 18:48> Allergies/Adverse reactions: Allergies Allergy/AdvReac Type Severity Reaction Status Date / Time ciprofloxacin Allergy Mild Hives Verified 05/25/24 16:50 metronidazole Allergy Mild Hives Verified 05/25/24 16:50 divalproex sodium Allergy Unknown Unknown Verified 05/25/24 16:50 vancomycin Allergy Unknown Unknown Verified 05/25/24 16:50 <Radha Tran, CONTINUOUS MINING MACHINE LODE MINER - Last Filed: 05/25/24 18:48> Review of Systems 2 Review of Systems: A 10 system review of systems was completed on the patient and is negative except for what is stated in the HPI. Nursing and ancillary documentation was reviewed. <Chuck Izaguirre MD - Last Filed: 05/26/24 02:01> [facility] Past Medical History Medical History: Medical History Hypertensive CKD (chronic kidney disease) DM renal manif type II Rotator cuff tear Adhesive capsulitis of left shoulder Left shoulder pain Hypothyroidism Mild cognitive impairment with memory loss Obstructive sleep apnea on CPAP Insulin dependent type 2 diabetes mellitus Chronic venous insufficiency Diabetic gastroparesis Chronic indwelling Vigil catheter Due to neurogenic bladder Dementia with behavioral disturbance Morbid obesity with BMI of 40.0-44.9, adult Vitamin D deficiency, unspecified Severe recurrent major depressive disorder with psychotic features Post-menopausal Polypharmacy Mixed hyperlipidemia Gout Dyskinesia, tardive Diabetic nephropathy associated with type 2 diabetes mellitus Depressive type psychosis Chronic pain disorder Chronic kidney disease, stage III (moderate) Body mass index [BMI] 39.0-39.9, adult (11/12/16) Benzodiazepine abuse, continuous Anxiety Antipsychotic-induced akathisia Pulmonary embolism (2020) Benign essential hypertension Brain hypoxia Chronic obstructive pulmonary disease Psychophysiological insomnia <Radha Tran, CONTINUOUS MINING MACHINE LODE MINER - Last Filed: 05/25/24 18:48> Surgical History Surgical History: Surgical History History of section History of hysterectomy History of back surgery <Radha Tran, CONTINUOUS MINING MACHINE LODE MINER - Last Filed: 05/25/24 18:48> Family History Family History: Family History Father Diabetes mellitus Hypertension Patient's father is , Onset Age: 75 Family history of renal failure Heart disease Cancer Mother Family history of malignant neoplasm of stomach Hypertension Cancer Thyroid disorder Sibling Depression Other Family history of arthritis <Radha Tran, CONTINUOUS MINING MACHINE LODE MINER - Last Filed: 05/25/24 18:48> Social History Social History: Social History Social History: Code status: Full code (per EMR) Surrogate decision maker: Serjio () Smoking status: Never smoker Second hand tobacco smoke exposure: No Alcohol intake: never Substance use: current Substance use type: marijuana Other substance usage details: hx of marijuana use 2022 Do You Feel Safe in your Home?: Yes Lack of Transportation: No Lack of Food: Never True Current Housing: I Have Housing Concerned About Future Housing: No Difficulty Paying Gas/Electric Bills: No Difficulty Paying for Meds: No Currently Unemployed: No Education: High School Diploma/GED Difficulty w/ Childcare or Family Care: No Living arrangements: with family Additional living arrangements comments: She lives at home with her . Her daughters, and help at night. She has home caregivers that, for 8 hours each day. Patient reports that she ambulates with a walker. Occupation/Education: retired Spiritual care concerns: No <Radha Tran APRN - Last Filed: 05/25/24 18:48> Exam 2 Narrative: GENERAL: Well-appearing, well-nourished, and in no acute distress. HEAD: Normocephalic, atraumatic. EYES: PERRLA and EOMI. ENT: Nares clear, no rhinorrhea or epistaxis. Mucous membranes moist. NECK: Supple. CHEST: Clear to auscultation. No respiratory distress. HEART: Regular rate and rhythm. No murmur heard. Normal peripheral pulses. ABDOMEN: Soft, nontender, nondistended, normal active bowel sounds. EXTREMITIES: Normal range of motion. No edema. SKIN: Warm, dry, no rash. NEURO: No focal deficits. Alert and oriented x3. PSYCH: Normal mood and affect. <Chuck Izaguirre MD - Last Filed: 05/26/24 02:01> Course Vital Signs Vital signs: Vital Signs Temperature 36.7 C 05/25/24 16:56 Pulse Rate 89 05/25/24 16:56 Respiratory Rate 22 H 05/25/24 16:56 Blood Pressure 149/77 H 05/25/24 16:56 Pulse Oximetry 98 05/25/24 16:56 Oxygen Delivery Room Air 05/25/24 16:56 Temperature 36.7 C 05/25/24 16:56 Pulse Rate 91 05/25/24 22:50 Respiratory Rate 16 05/25/24 22:50 Blood Pressure 148/79 H 05/25/24 22:50 Pulse Oximetry 100 05/25/24 22:50 Oxygen Delivery Room Air 05/25/24 16:56 <Radha Tran APRN - Last Filed: 05/25/24 18:48> Vital Signs Temperature 36.7 C 05/25/24 16:56 Pulse Rate 89 05/25/24 16:56 Respiratory Rate 22 H 05/25/24 16:56 Blood Pressure 149/77 H 05/25/24 16:56 Pulse Oximetry 98 05/25/24 16:56 Oxygen Delivery Room Air 05/25/24 16:56 Temperature 36.7 C 05/25/24 16:56 Pulse Rate 91 05/25/24 22:50 Respiratory Rate 16 05/25/24 22:50 Blood Pressure 148/79 H 05/25/24 22:50 Pulse Oximetry 100 05/25/24 22:50 Oxygen Delivery Room Air 05/25/24 16:56 <Chuck Izaguirre MD - Last Filed: 05/26/24 02:01> MDM - Female Genitourinary MDM Narrative Medical decision making narrative: Differential diagnosis includes UTI, bladder spasm, ureterolithiasis Laboratory studies were obtained which showed a white count of 9.8 electrolytes showed a creatinine 1.7 glucose was 203 urinalysis showed greater than [address] scan of the abdomen pelvis showed no acute abnormality The patient was given a dose Rocephin in the emergency department original plan was to discharge the patient home but she is having so much discomfort of the case was discussed with the hospitalist for observation admission. The patient was graciously accepted by the hospitalist service <Chuck Izaguirre MD - Last Filed: 05/26/24 02:01> Lab Data Result diagrams: 05/25/24 22:26 05/25/24 22:26 <Radha Tran APRN - Last Filed: 05/25/24 18:48> Labs: Lab Results 05/25/24 05/25/24 Range/Units 21:02 22:26 WBC 9.8 (4.5-10.0) K/mm3 RBC 3.89 L (4.2-5.4) M/mm3 Hgb 12.6 (12.0-15.0) g/dL Hct 38.5 (37.0-47.0) % MCV 99.0 (80-100) fl MCH 32.4 (26-34) pg MCHC 32.7 (32-36) g/dl RDW 16.1 H (11.5-14.5) % Plt Count 210 (150-375) k/mm3 MPV 10.9 H (7.4-10.4) fl Immature Gran % (Auto) 0.4 (0-0.5) % Neut % (Auto) 75.5 H (45.5-73.1) % Lymph % (Auto) 14.9 L (18.3-44.2) % [place] % (Auto) 7.8 (2.6-8.5) % Eos % (Auto) 1.0 (0-4.4) % Baso % (Auto) 0.4 (0.2-1.2) % Lymph # (Auto) 1.46 (0.9-3.2) K/mm3 [place] # (Auto) 0.8 H (0.1-0.6) K/mm3 Eos # (Auto) 0.1 (0-0.3) K/mm3 Baso # (Auto) 0.0 (0.0-0.1) K/mm3 Abs Immat Gran (auto) 0.04 H (0.00-0.031) K/mm3 Absolute Neuts (auto) 7.4 H (1.3-6.7) K/mm3 Absolute Nucleated RBC 0.000 (0.0-0.012) K/mm3 Nucleated RBC % 0.0 (0.0-0.2) % Sodium 139 (137-145) mmol/L Potassium 4.6 (3.4-5.0) mmol/L Chloride 99 (98-107) mmol/L Carbon Dioxide 25 (22-30) mmol/L Anion Gap 15 H (4-12) mmol/L BUN 47 H D (7-17) mg/dL Creatinine 1.70 H (0.7-1.0) mg/dL Estim Creat Clear Calc 38 ml/min Estimated GFR 30 L (59 - ) Glucose 203 H (65-110) mg/dL Calcium 10.5 H (8.4-10.2) mg/dL Magnesium 1.8 (1.6-2.3) mg/dL Total Bilirubin 0.8 (0.2-1.3) mg/dL AST 42 H (14-36) U/L ALT 48 H (6-35) U/L Alkaline Phosphatase 131 H (38-126) U/L Total Protein 8.0 (6.3-8.2) g/dL Albumin 4.3 (3.5-5.1) g/dL Urine Color Yellow (Yellow) Urine Appearance Turbid H (Clear) Urine pH 7.0 (5.0-9.0) Ur Specific [place] 1.014 (1.001-1.035) Urine Protein 2+ H (Negative) mg/dL Urine Glucose (UA) Negative (Negative) mg/dL Urine Ketones Negative (Negative) mg/dL Ur Blood (Man) 2+ H (Negative) Urine Nitrate Positive H (Negative) Urine Bilirubin Negative (Negative) Urine Urobilinogen 0.2 (<2.0) mg/dL Leukocyte Esterase Rfl 3+ H (Negative) ARTURO/UL Urine RBC 11-20 H (0-2) /hpf Urine WBC >100 H (0-3) /hpf Ur Squamous Epith Cells None seen (Few) /hpf Urine Bacteria 4+ /hpf Urine Casts 0-2 <Radha Tran, CONTINUOUS MINING MACHINE LODE MINER - Last Filed: 05/25/24 18:48> Lab Results 05/25/24 05/25/24 Range/Units 21:02 22:26 WBC 9.8 (4.5-10.0) K/mm3 RBC 3.89 L (4.2-5.4) M/mm3 Hgb 12.6 (12.0-15.0) g/dL Hct 38.5 (37.0-47.0) % MCV 99.0 (80-100) fl MCH 32.4 (26-34) pg MCHC 32.7 (32-36) g/dl RDW 16.1 H (11.5-14.5) % Plt Count 210 (150-375) k/mm3 MPV 10.9 H (7.4-10.4) fl Immature Gran % (Auto) 0.4 (0-0.5) % Neut % (Auto) 75.5 H (45.5-73.1) % Lymph % (Auto) 14.9 L (18.3-44.2) % [place] % (Auto) 7.8 (2.6-8.5) % Eos % (Auto) 1.0 (0-4.4) % Baso % (Auto) 0.4 (0.2-1.2) % Lymph # (Auto) 1.46 (0.9-3.2) K/mm3 [place] # (Auto) 0.8 H (0.1-0.6) K/mm3 Eos # (Auto) 0.1 (0-0.3) K/mm3 Baso # (Auto) 0.0 (0.0-0.1) K/mm3 Abs Immat Gran (auto) 0.04 H (0.00-0.031) K/mm3 Absolute Neuts (auto) 7.4 H (1.3-6.7) K/mm3 Absolute Nucleated RBC 0.000 (0.0-0.012) K/mm3 Nucleated RBC % 0.0 (0.0-0.2) % Sodium 139 (137-145) mmol/L Potassium 4.6 (3.4-5.0) mmol/L Chloride 99 (98-107) mmol/L Carbon Dioxide 25 (22-30) mmol/L Anion Gap 15 H (4-12) mmol/L BUN 47 H D (7-17) mg/dL Creatinine 1.70 H (0.7-1.0) mg/dL Estim Creat Clear Calc 38 ml/min Estimated GFR 30 L (59 - ) Glucose 203 H (65-110) mg/dL Calcium 10.5 H (8.4-10.2) mg/dL Magnesium 1.8 (1.6-2.3) mg/dL Total Bilirubin 0.8 (0.2-1.3) mg/dL AST 42 H (14-36) U/L ALT 48 H (6-35) U/L Alkaline Phosphatase 131 H (38-126) U/L Total Protein 8.0 (6.3-8.2) g/dL Albumin 4.3 (3.5-5.1) g/dL Urine Color Yellow (Yellow) Urine Appearance Turbid H (Clear) Urine pH 7.0 (5.0-9.0) Ur Specific [place] 1.014 (1.001-1.035) Urine Protein 2+ H (Negative) mg/dL Urine Glucose (UA) Negative (Negative) mg/dL Urine Ketones Negative (Negative) mg/dL Ur Blood (Man) 2+ H (Negative) Urine Nitrate Positive H (Negative) Urine Bilirubin Negative (Negative) Urine Urobilinogen 0.2 (<2.0) mg/dL Leukocyte Esterase Rfl 3+ H (Negative) ARTURO/UL Urine RBC 11-20 H (0-2) /hpf Urine WBC >100 H (0-3) /hpf Ur Squamous Epith Cells None seen (Few) /hpf Urine Bacteria 4+ /hpf Urine Casts 0-2 <Chuck Izaguirre MD - Last Filed: 05/26/24 02:01> Discharge Plan Discharge Clinical Impression: Acute UTI, Bladder spasm <Radha Tran APRN - Last Filed: 05/25/24 18:48> Patient Disposition: Still a Patient <Radha Tran APRN - Last Filed: 05/25/24 18:48> Condition: Stable <Radha Tran APRN - Last Filed: 05/25/24 18:48> Patient Language: Luxembourgish <Radha Tran APRN - Last Filed: 05/25/24 18:48> Prescriptions: No Action acetaminophen [Tylenol Extra Strength] 500 mg tablet 1,000 mg PO BID ferrous sulfate 325 mg (65 mg iron) tablet 325 mg PO BID nystatin 100,000 unit/gram cream 1 applic topical BID lactobacillus combination no.9 [Adult 50 Plus Probiotic] 1 cap PO DAILY furosemide 40 mg tablet See Rx Instructions .ROUTE .COMPLEX Qty: 90 0RF Dose Instruction: TAKE 1 TABLET BY MOUTH EVERY MORNING Rx Instructions: TAKE 1 TABLET BY MOUTH EVERY MORNING (DME) FreeStyle Mohan 3 Sensor Device See Rx Instructions .Route Qty: 1 0RF Rx Instructions: use for monitoring blood sugar (DME) FreeStyle Mohan 3 [place] Misc See Rx Instructions .Route Qty: 1 0RF Rx Instructions: use for monitoring glucose on insulin aspirin 81 mg tablet,delayed release (DR/EC) 81 mg PO BID insulin glargine [Basaglar KwikPen U-100 Insulin] 100 unit/mL (3 mL) insulin pen 40 unit subcut BID Qty: 15 2RF dulaglutide 4.5 mg/0.5 mL pen injector 4.5 mg subcut WEEKLY Qty: 2 5RF Rx Instructions: FRIDAYS clotrimazole-betamethasone 1-0.05 % Cream 1 applic TOPICAL BID Rx Instructions: APPLY TO BUTTOCKS Clear Fiber 3 gram/4 gram Powder 2 tsp PO TID PRN (Reason: Constipation) Namzaric 28-10 mg capsule,sprinkle,ER 24hr 1 cap PO HS oxybutynin chloride 5 mg tablet extended release 24hr 5 mg PO DAILY PRN (Reason: bladder spasms) guaifenesin [Mucus Relief ER] 600 mg Tablet Extended Release 12hr 1,200 mg PO Q12HR Qty: 14 0RF pregabalin 100 mg capsule 100 mg PO HS Qty: 30 0RF Adults Multivitamin 18 mg iron-400 mcg-25 mcg Tablet 1 tablet PO DAILY atorvastatin 10 mg tablet 10 mg PO DAILY cholecalciferol (vitamin D3) 1,250 mcg (50,000 unit) tablet 1,250 mcg PO WEEKLY Qty: 12 3RF Rx Instructions: every tuesday Eliquis 2.5 mg tablet 2.5 mg PO BID Qty: 60 3RF clonidine HCl 0.1 mg tablet 0.1 mg PO BID Qty: 180 0RF Rx Instructions: TAKE 1 TABLET BY MOUTH TWICE DAILY. MAY REPEAT EVERY 1 HOUR. NOT TO EXCEED 0.7 MG(7 TABLETS) PER 24 HOURS (DME) FreeStyle Mohan 3 Sensor Device See Rx Instructions .Route Qty: 1 5RF Rx Instructions: As directed (DME) FreeStyle Mohan 3 [place] Misc See Rx Instructions .Route Qty: 1 0RF Rx Instructions: As directed benztropine 0.5 mg tablet See Rx Instructions .ROUTE .COMPLEX Qty: 270 1RF Dose Instruction: TAKE 1 TABLET BY MOUTH THREE TIMES DAILY Rx Instructions: TAKE 1 TABLET BY MOUTH THREE TIMES DAILY tramadol 50 mg tablet 50 mg PO BID PRN (Reason: pain) Qty: 60 0RF lactulose 10 gram/15 mL solution 15 ml PO BID PRN (Reason: Constipation) Qty: 3785 0RF duloxetine 30 mg capsule,delayed release(DR/EC) 30 mg PO BID Qty: 60 2RF (DME) pen needle, diabetic [BD Ultra-Fine Short Pen Needle] 31 gauge x 5/16 needle See Rx Instructions .ROUTE .COMPLEX Qty: 400 2RF Dose Instruction: USE FIVE TIMES DAILY Rx Instructions: USE FIVE TIMES DAILY insulin lispro 100 unit/mL insulin pen See Rx Instructions .ROUTE .COMPLEX Qty: 15 2RF Dose Instruction: INJECT 5 UNITS UNDER THE SKIN PRE-MEAL WITH SLIDING SCALE. MAX TDD: 40 UNITS Rx Instructions: INJECT 5 UNITS UNDER THE SKIN PRE-MEAL WITH SLIDING SCALE. MAX TDD: 40 UNITS metoprolol tartrate 50 mg tablet 50 mg PO Q12H Qty: 60 5RF quetiapine 50 mg tablet 50 mg PO BID Qty: 60 5RF amoxicillin-pot clavulanate 875-125 mg tablet 1 tablet PO BID 10 Days Qty: 20 0RF <Radha Tran APRN - Last Filed: 05/25/24 18:48> Follow-up/Referrals: Javy Monsivais MD [Primary Care Provider] - <Radha Tran APRN - Last Filed: 05/25/24 18:48> Time of Disposition: 02:01 <Radha Tran APRN - Last Filed: 05/25/24 18:48> 02:01 <Chuck Izaguirre MD - Last Filed: 05/26/24 02:01>
[2024-05-25] MEDS: HYDROcodone/acetaminophen (*CRX) 5-325 MG TABLET 1 TAB PO (17:54)
[2024-05-25] MEDS: oxyBUTYnin CHLORIDE 5 MG TABLET PO ×2 (17:55→22:50)
[2024-05-25 21:15] LABS: Add Urine Microscopic? YES; Appearance Urine Turbid (Clear); Bacteria Urine 4+ /hpf; Bilirubin Urine Negative (Negative); Blood Urine 2+ (Negative); Color Urine Yellow (Yellow); Glucose Urine UA Negative (Negative); Ketones Urine Negative (Negative); Leukocyte Esterase Ur 3+ LEU/UL (Negative); Nitrate Urine Positive (Negative); Non Pathogenic Casts 0-2; Protein Urine 2+ mg/dL (Negative); Specific Grav Ur 1.014 (1.001-1.035); Squamous Epithelial Cell Urine None Seen /hpf (Few); Urobilinogen Urine 0.2 mg/dL (<2.0); WBC Urine >100 /hpf (0-3)
[2024-05-25 21:18] VITALS: BP 148/104; PULSE 89; RESP 16; O2SAT 98
--- NOTE | 2024-05-25 21:20 | PC.NURSE ---
pt arrives to room 13 from waiting in pain and moaning. pt states she has an existing catheter and is urinating around the catheter and is having extreme amounts of pain. this rn removed 16F urinary catheter and replaced urinary catheter with an 18F catheter. This rn was able to deflate 25ml of sterile water from balloon. urine specimen sent to lab for urine culture. pt tolerated urinary catheter placement and removal well. pericare performed at time of removal and insertion. pt has urinary flow after replacement.
--- OUTSIDE RECORDS SUMMARY | 2024-05-25 21:31 | XMS_ITS | Clinical Summary ---
Author Organization [facility] Address [address] [place] [address] Care Team Providers Care Software Licensing Analyst Name Role Phone Amanda Hanks MD Primary Care Provider [phone] Source Comments [facility],non-owned Affiliates and Associated Physician Practices is [facility] consisting of ambulatory clinics and hospital sitesin [place], [place], [place] and [place]. This disclosure is being madepursuant to the Care Everywhere program and may not contain all information available regarding this patient. Last updated 17.[facility] Allergies No known active allergies Medications * [...] 65 Units subcutaneously. Active Cholecalciferol (VITAMIN D3) 83585 UNITS CAPS capsule Take 50,000 Units by [...] Comments Blood Pressure 170/92 04/08/2014 2:[address] CLERK Pulse 116 04/08/2014 2:[address] CLERK Temperature 36.9 C (98.5 F) 04/08/2014 2:[address] CLERK Respiratory Rate 18 04/08/2014 2:[address] CLERK Oxygen Saturation - - Inhaled Oxygen Concentration - - Weight 131.5 kg (290 lb) 05/20/2014 12:[address] CLERK Height 175.3 cm (5' 9) 05/20/2014 12:[address] CLERK Body Mass Index 42.83 05/20/2014 12:[address] CLERK Plan of Treatment Health Maintenance Due Date [...] C Antibody NON-REACTI VE NON-REACT [facility]) Signal/Cutoff 0.02 <1.00 [facility]) Comment: Test Performed at: [facility] [address] [place] [address] GUERLINE MORSE DO,MPH 06/10/2014 11:5 5 AM CDT 06/10/2014 11:56 AM CDT Phil Houser MD LAB - CHEM ISTRY ORDERABLES [facility]) from Last 3 Months or Most Recently Relevant to Health Maintenance Care Teams Software Licensing Analyst Relationship Specialty Start Date End Date Amanda Hanks MD [address] [place] [phone] PCP - General Family Medicine 04/18/14
--- OUTSIDE RECORDS SUMMARY | 2024-05-25 21:31 | XMS_ITS | Clinical Summary ---
Author Organization [facility] Address [facility] [place] [address] Care Team Providers Care Construction Site Manager Name Role Phone Carol Staples MD Primary [...] (05/15/2021): Added automatically from request for surgery [id number] Closed displaced fracture of medial malleolus of right tibia 05/15/2021 Overview (05/25/2021): Added automatically from request for surgery [id number] Neurogenic bladder 04/17/2021 Overview (04/17/2021): Added automatically from request for surgery [id number] Assessment & Plan (09/03/2021 9:34 PM CDT): [...] often do you attend chur ch or protestant services? 1 to 4 times per year 09/07/2021 Do you belong to any clubs o r organizations such as nondenominational groups, unions, fraternal or athletic groups, or [...] place to sleep or slept in a penitentiary (including now)? No 09/07/2021 Personal Safety Answer Date Recorded Getting School Help Needed Not on file 04/02 Comments No Sex and Gender Information Value Date Recorded Sex Assigned at Not on file Legal Sex Female 12:38 AM MACHINE HAND Gender Identity Not on file Sexual Orientation Not on file Obstetrics History Last Filed Vital Signs Vital Sign Reading Time Taken Comments Blood Pressure 126/76 02/03/2023 8:58 AM MACHINE HAND Pulse 69 02/03/2023 8:58 AM MACHINE HAND Temperature 36.7 C (98.1 F) 02/03/2023 8:58 AM MACHINE HAND Respiratory Rate 18 01/14/2022 9:20 AM CDT Oxygen Saturation 95% 09/15/2021 6:34 AM CDT Inhaled Oxygen Concentration - - Weight 129.7 kg (286 lb) 02/03/2023 8:58 AM MACHINE HAND Height 175.3 cm (5' 9) 02/03/2023 8:58 AM MACHINE HAND Body Mass Index 42.23 02/03/2023 8:58 AM MACHINE HAND Plan of Treatment Health Maintenance Due Date [...] history exists Medical Devices Implanted Type Area Major Case Detective Device Identifier Shelf Expiration Date Model / Serial / Lot [employer]/Ort ho [id number] [id number] 16.3x1.7mm 13 Hole Low Profile Variable Angle - S0 - [id number] Implanted:Qty: 1 on 05/16/2021 by Lori Carnes MD at [facility] Plate Right: Ankle [employer]/ Ortho [id number] 06/26/2028 [id number] / 0 / [id number] [employer]/Ort ho [id number] Evos 3.5mm 48mm Self Tap Cortex Screw Bone Sterile - S0 - [id number] Implanted:Qty: 1 on 05/16/2021 by Lori Carnes MD at [facility] Screw Right: Ankle [employer]/ Ortho [id number] / 0 / 0 [employer]/Ort ho [id number] Evos 3.5mm 50mm Self Tap Cortex Screw Bone Sterile - S0 - [id number] Implanted:Qty: 1 on 05/16/2021 by Lori Carnes MD at [facility] Screw Right: Ankle [employer]/ Ortho [id number] / 0 / 0 [employer]/Ort ho [id number] Evos Mini 2.7mm 4.5mm 12mm Self Tap Cortex T8 Screw Bone - S0 - [id number] Implanted:Qty: 1 on 05/16/2021 by Lori Carnes MD at [facility] Screw Right: Ankle [employer]/ Ortho [id number] / 0 / 0 [employer]/Ort ho [id number] Evos Mini 2.7mm 4.5mm 13mm Self Tap Cortex T8 Screw Bone - S0 - [id number] Implanted:Qty: 1 on 05/16/2021 by Lori Carnes MD at [facility] Screw Right: Ankle [employer]/ Ortho [id number] / 0 / 0 [employer]/Ort ho [id number] Evos Mini 2.7mm 4.5mm 15mm Self Tap Cortex T8 Screw Bone - S0 - [id number] Implanted:Qty: 3 on 05/16/2021 by Lori Carnes MD at [facility] Screw Right: Ankle [employer]/ Ortho [id number] / 0 / 0 [employer]/Ort ho [id number] Evos 3.5mm 12mm Self Tap Cortex Screw Bone Sterile - S0 - [id number] Implanted:Qty: 4 on 05/16/2021 by Lori Carnes MD at [facility] Screw Right: Ankle [employer]/ Ortho [id number] / 0 / 0 [employer]/Ort ho [id number] Evos 3.5mm 46mm Self Tap Cortex Screw Bone Sterile - S0 - [id number] Implanted:Qty: 1 on 05/16/2021 by Lori Carnes MD at [facility] Screw Right: Ankle [employer]/ Ortho [id number] / 0 / 0 Rt Shoulder Pin Right: Shoulder Lumbar Spine Fusion Instrumemtation Spine Lumbar [employer]/Ort ho [id number] Evos 3.5mm 75mm Self Tap Cortex Screw Bone Sterile - [id number] Implanted:Qty: 1 on 05/28/2021 by Randall Camp MD at [facility] Right: Ankle [employer]/ Ortho [id number] / / Explanted Type Area Major Case Detective Device Identifier Shelf Expiration Date Model / Serial / Lot [employer]/O rtho [id number] Evos 2mm 14mm Provisional Pin Fixation Sterile - S0 - [id number] Explanted:Qty: 1 on 05/16/2021 at [facility] Pin Right: Ankle [employer]/Or tho [id number] / 0 / 0 Description:Temporary Placem ent; Provisional Fixation, only [employer]/O rtho [id number] Pin 25mm 2.5mm Fixation Evos Provisional Sterile - S0 - [id number] Explanted:Qty: 1 on 05/16/2021 at [facility] Pin Right: Ankle [employer]/Or tho [id number] / 0 / 0 Description:Temporary Placem ent; Provisional Fixation, only [employer]/O rtho [id number] Evos 3.5mm 15mm Self Tap Cortex Screw Bone Sterile - S0 - [id number] Explanted:Qty: 1 on 05/16/2021 at [facility] Screw Right: Ankle [employer]/Or tho [id number] / 0 / 0 Procedures Procedure Name Priority Date/Time Associated Diagnosis Comments EGFR Routine 09/11/2021 3:21 AM CDT HEMOGLOBIN A1C Routine 09/04/2021 4:18 AM CDT LIPID PANEL STAT 05/15/2021 1:38 PM MACHINE HAND from Last 3 Months or Most Recently [...] was last reviewed 2021. Testing performed by: [address] [address] Blood 09/11/2021 3:21 AM CDT 09/11/2021 5:45 AM CDT Dipti López MD LAB BLOOD ORDERABLES Final Res ult Performing Organization Address [facility]/ZIP Co de Phone Number [address] [place] [address] * (ABNORMAL) Hemoglobin A1c (09/04/2021 4:18 AM CDT) Hgb A1C 6.4(H) 4.0 - 5.6 % [facility] Comment:Testing performed by : [address] [address] Estimated Average Glucose 137 mg/dL [facility] Comment: The ADA recommends reporting an estimated Average Glucose (eAG) with all Hemoglobin A1c results using the equation derived from a study of 507 normal and diabetic adults. Minority populations were underrepresented and children were not included. (Diabetes Care 31:8094-0583, 2008). The eAG is not equivalent to a fasting glucose. Testing performed by: [address] [address] Blood 09/04/2021 4:18 AM CDT 09/04/2021 5:27 AM CDT Adeline Bo DO LAB BLOOD ORDERABLES Final Re sult Performing Organization Address City/[facility]/ZIP Co de Phone Number [facility] [address] [facility] [place] [address] * (ABNORMAL) Lipid panel (05/15/2021 1:38 PM MACHINE HAND) Cholesterol 155 30 - 199 mg/dL [facility] Comment: Interpretive Data Ages < [...] revised on 2017. Triglycerides 372(H) <=149 mg/dL [facility] Comment: Interpretive Data Ages < or [...] revised on 2017. HDL 29(L) >=40 mg/dL [facility] Comment: Interpretive Data Ages < or [...] on 2017. LDL, calculated 52 <=129 mg/dL [facility] Comment: Interpretive Data Ages < or [...] [address] [facility] [place] Blood 05/15/2021 1:38 PM MACHINE HAND 05/15/2021 1:48 PM MACHINE HAND Radha Lara MD LAB BLOOD ORDERABLES Raisa davila Result [facility] [address] [facility] Department [place] [address] from Last 3 Months or Most Recently Relevant to Health Maintenance Insurance AET MEDICARE [facility]IC[facility] AETNA MEDICARE Advance Directives For more information, please contact: [phone] * Full Code (Latest Code Status on File) Date Activated Date Inactivated Comments 05/15/2021 10:09 PM 06/03/2021 10:44 PM Care Teams Construction Site Manager Relationship Specialty Start Date End Date Carol Staples MD [address] [place] [address] PCP - General Family Medicine 07/18/20
--- OUTSIDE RECORDS SUMMARY | 2024-05-25 21:31 | XMS_ITS | Patient Health Summary ---
Author Organization [facility] Address [address] [facility] [place] [address] Care Team Providers Care Controls Operator Molded Goods Name Role Phone Amanda Hanks MD Primary Care Provider [phone] Note from [facility],non-owned Affiliates and Associated Physician Practices is amultiple site organization consisting of ambulatory clinics and hospital sitesin [place], [place], [place] and [place]. This disclosure is being madepursuant to the Care Everywhere program and may not contain all information available regarding this patient. Last updated 17.[facility] Atmail Allergies No known active allergies Medications * Be aware that medications may not be up to date on this document. Alwaysverify current medications with the patient. * metFORMIN (GLUCOPHAGE) 500 MG tablet Take 500 mg by mouth 2 times daily with morning and evening meal. * Insulin Detemir (LEVEMIR FLEXTOUCH SC) Inject 65 Units subcutaneously. * Cholecalciferol (VITAMIN D3) 25950 UNITS CAPS capsule Take 50,000 Units by [...] Bisacodyl (DULCOLAX PO) Take by mouth. * Oinkozu-Tcddrjscrnnkt-Djvrrpgg (EXCEDRIN PO) Take by mouth. PRN * [...] Comments Blood Pressure 170/92 04/08/2014 2:21 PM CLIENT SOLUTIONS MANAGER Pulse 116 04/08/2014 2:21 PM CLIENT SOLUTIONS MANAGER Temperature 36.9 C (98.5 F) 04/08/2014 2:21 PM CLIENT SOLUTIONS MANAGER Respiratory Rate 18 04/08/2014 2:21 PM CLIENT SOLUTIONS MANAGER Oxygen Saturation - - Inhaled Oxygen Concentration - - Weight 131.5 kg (290 lb) 05/20/2014 12:04 PM CLIENT SOLUTIONS MANAGER Height 175.3 cm (5' 9) 05/20/2014 12:04 PM CLIENT SOLUTIONS MANAGER Body Mass Index 42.83 05/20/2014 12:04 PM CLIENT SOLUTIONS MANAGER Procedures * CYSYZ-2-YGWJLDETAJS BLOOD PHENOTYPING PANEL(Performed 06/10/2014) * MITOCHONDRIAL ANTIBODY SCREEN(Performed 06/10/2014) * SMOOTH MUSCLE ANTIBODY(Performed 06/10/2014) * JUDE BLOOD TITER(Performed 06/10/2014) * JUDE BLOOD SCREEN W/REFLEX TITER(Performed 06/10/2014) * CERULOPLASMIN(Performed 06/10/2014) * SGZIK-7-BIBTMNITFGQ BLOOD(Performed 06/10/2014) * HEPATITIS B SURFACE ANTIBODY(Performed [...] Mitochondria M2 Antibody IgG <20.0 U [facility]) Comment: Reference Range: NEGATIVE: < OR = 20.0 EQUIVOCAL: 20.1-24.9 POSITIVE: > OR = 25.0 REPORT COMMENT: IS PATIENT ON HEPARIN?->N Test Performed at: [facility] [address] [place] [address] LOLA CANO MD PHD 06/10/2014 11:5 5 AM CDT 06/10/2014 11:56 AM CDT Phil Houser MD LAB - CHEM ISTRY ORDERABLES [facility]) * UTPQD-0-JWDRNCHDCUB BLOOD PHENOTYPING PANEL (06/10/2014 11:55 AM CDT) Pathologist [facility] Bwqvc-2-Ieteqmbtx in Phenotype SEE NOTE [facility]) Comment: THIS PATIENT'S FCXQB-7-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 90% of normal individuals have the MM phenotype, with normal quantitative AAT levels. Many phenotypic patterns have been described, including deficiency states with F, S, Z, or other alleles. As a general estimation, compared to M allele of 100% of normal L-5-Avauvejwgca protein, the S allele produces approximately 60% and the Z allele 20%. For example, an MS phenotype would have about 80% of normal R-9-Dfmuujkbogm protein level, a 50% contribution from the M allele and 30% from the S allele. A ZZ phenotype would have about 20% of normal levels. The F allele has normal J-2-Ckcetnxthwt levels, but the kinetics of elastase inhibition is not as efficient as an M allele product; F alleles should be considered functionally mildly deficient. REPORT COMMENT: IS PATIENT ON HEPARIN?->N Test Performed at: [facility] [address] [place] [address] LOLA CANO MD PHD 06/10/2014 11:5 5 AM CDT 06/10/2014 11:56 AM CDT Phil Houser MD LAB - CHEM ISTRY ORDERABLES Performing Organization Address [facility] de Phone Number [facility] * (ABNORMAL) JUDE BLOOD TITER (06/10/2014 11:55 AM CDT) Pathologist [facility] JUDE Pattern #1 ATYPICAL SPECKLED(A) [facility] JUDE Pattern #1 1:1280(H) titer [facility] Comment: Reference Range <1:40 Negative 1:40-1:80 Low Antibody Level >1:80 Elevated Antibody Level REPORT COMMENT: IS PATIENT ON HEPARIN?->N Test Performed at: [facility] [address] [address] [place] [address] GUERLINE MORSE DO,MPH 06/10/2014 11:5 5 AM CDT 06/10/2014 11:56 AM CDT Phil Houser MD LAB - CHEM ISTRY ORDERABLES Performing Organization Address [facility]/ZIP Co de Phone Number [facility] * (ABNORMAL) JUDE BLOOD SCREEN W/REFLEX TITER (06/10/2014 11:55 AM CDT) JUDE Screen POSITIVE( A) NEGATIVE [facility]) Comment: REPORT COMMENT: IS PATIENT ON HEPARIN?->N Test Performed at: [place] [address] GUERLINE MORSE DO,MPH 06/10/2014 11:5 5 AM CDT 06/10/2014 11:56 AM CDT Phil Houser MD LAB - CHEM ISTRY ORDERABLES Performing Organization Address [facility]/ZIP Co de Phone Number [facility] * CERULOPLASMIN (06/10/2014 11:55 AM CDT) Ceruloplasmin 31 18 - 53 mg/dL [facility]) Comment: REPORT COMMENT: IS PATIENT ON HEPARIN?->N Test Performed at: [place] [address] GUERLINE MORSE DO,MPH 06/10/2014 11:5 5 AM CDT 06/10/2014 11:56 AM CDT Phil Houser MD LAB - CHEM ISTRY ORDERABLES Performing Organization Address [facility] de Phone Number [facility] * NGUIT-0-ABXDMUMAYGR BLOOD (06/10/2014 11:55 AM CDT) Iybij-1-Oarohvvz sin 123 83 - 199 mg/dL [facility]) Comment: Test Performed at: [facility] [address] GUERLINE MORSE DO,MPH 06/10/2014 11:5 5 AM CDT 06/10/2014 11:56 AM CDT Phil Houser MD LAB - CHEM ISTRY ORDERABLES Performing Organization Address City/[facility]/ZIP Co de Phone Number [facility]) * SMOOTH MUSCLE ANTIBODY (06/10/2014 11:55 AM CDT) Pathologist [facility] Actin Antibody IgG <20 <20 U [facility]) Comment: Reference Range: <20 U: Negative [...] IS PATIENT ON HEPARIN?->N Test Performed at: [facility] [address] KADY BRYANT MD 06/10/2014 11:5 5 AM CDT 06/10/2014 11:56 AM CDT Phil Houser MD LAB - SERO LOGY ORDERABLES [facility]) * (ABNORMAL) CBC W AUTO DIFFERENTIAL (06/10/2014 11:55 AM CDT) Pathologist [facility] WBC 6.3 3.8 - 10.8 Thousand/u L [facility]) RBC 4.27 3.80 - 5.10 Million/uL [facility]) Hemoglobin 12.0 11.7 - 15.5 g/dL [facility]) Hematocrit 38.0 35.0 - 45.0 % [facility]) MCV 89.1 80.0 - 100.0 fL [facility]) MCH 28.0 27.0 - 33.0 pg [facility]) MCHC 31.5(L) 32.0 - 36.0 g/dL [facility]) RDW-CV 16.8(H) 11.0 - 15.0 % [facility] Platelet 240 140 - 400 Thousand/u L [facility]) Neutrophils Absolute 4,694 1,500 - 7,800 cells/uL [facility]) Lymphocyte Absolute Manual 1,153 850 - 3,900 cells/uL [facility]) Monocytes Absolute 296 200 - 950 cells/uL [facility]) Eosinophils Absolute 132 15 - 500 cells/uL [facility]) Basophil Absolute Manual 25 0 - 200 cells/uL [facility] Neutrophils % 74.5 % [facility] Lymphocytes % 18.3 % [facility] Monocytes % 4.7 % [facility] Eosinophils % 2.1 % [facility] Basophil % 0.4 % [facility] Comment: REPORT COMMENT: IS PATIENT ON HEPARIN?->N Test Performed at: [facility] [place] [address] [address] [place] [address] GUERLINE MORSE DO,MPH 06/10/2014 11:5 5 AM CDT 06/10/2014 11:56 AM CDT Phil Houser MD LAB - ARTURO TOLOGY ORDERABLES [facility]) * (ABNORMAL) COMPREHENSIVE METABOLIC PANEL (06/10/2014 11:55 AM CDT) Glucose 152(H) 65 - 99 mg/dL [facility]) Comment: Fasting reference interval BUN 30(H) 7 - 25 mg/dL [facility]) Creatinine 1.07(H) 0.50 - 0.99 mg/dL [facility]) Comment: For patients >49 years of age, the reference limit for Creatinine is approximately 13% higher for people identified as -Macedonian. eGFR non- 56(L) > OR = 60 mL/min/1. 73m2 [facility]) eGFR 65 > OR = 60 mL/min/1. 73m2 [facility]) BUN/Creatinine Ratio 28(H) 6 - 22 (calc) [facility]) Sodium 138 135 - 146 mmol/L [facility]) Potassium 4.9 3.5 - 5.3 mmol/L [facility]) Chloride 99 98 - 110 mmol/L [facility]) CO2 26 19 - 30 mmol/L [facility]) Calcium 9.5 8.6 - 10.4 mg/dL [facility]) Protein Total 7.0 6.1 - 8.1 g/dL [facility]) Albumin 4.1 3.6 - 5.1 g/dL [facility]) Globulin 2.9 1.9 - 3.7 g/dL (calc) [facility]) Albumin/Globulin Ratio 1.4 1.0 - 2.5 (calc) [facility]) Bilirubin Total 0.3 0.2 - 1.2 mg/dL [facility]) Alkaline Phosphatase 113 33 - 130 U/L [facility]) AST 24 10 - 35 U/L [facility]) ALT 31(H) 6 - 29 U/L [facility]) Comment: REPORT COMMENT: IS PATIENT ON HEPARIN?->N Test Performed at: [facility] [address] [place] [address] GUERLINE MORSE DO,MPH 06/10/2014 11:5 5 AM CDT 06/10/2014 11:56 AM CDT Phil Houser MD LAB - CHEM ISTRY ORDERABLES Performing Organization Address City/[facility]/ZIP Co de Phone Number [facility]) * IRON + TIBC PANEL (06/10/2014 11:55 AM CDT) Pathologist [facility] Iron 59 45 - 160 mcg/dL [facility]) TIBC 341 250 - 450 mcg/dL [facility]) Iron Saturation 17 11 - 50 % (calc) [facility]) Comment: Test Performed at: [facility] [address] [place] [address] GUERLINE MORSE DO,MPH 06/10/2014 11:5 5 AM CDT 06/10/2014 11:56 AM CDT Phil Houser MD LAB - CHEM ISTRY ORDERABLES [facility]) * HEPATITIS B SURFACE ANTIBODY (06/10/2014 11:55 AM CDT) Pathologist [facility] Hepatitis B Virus Surface Antibody <5 mIU/mL [facility]) Comment: Patient does not have immunity to hepatitis B virus. Effective July 30, 2013 this test is being performed using the [employer] Chemiluminesence method. Quantitative results from this method should not be used interchangeably with other methods. REPORT COMMENT: IS PATIENT ON HEPARIN?->N Test Performed at: [place] [address] GUERLINE MORSE DO,MPH 06/10/2014 11:5 5 AM CDT 06/10/2014 11:56 AM CDT Phil Houser MD LAB - CHEM ISTRY ORDERABLES Performing Organization Address [facility]/ZIP Co de Phone Number [facility]) * HEPATITIS B CORE ANTIBODY (06/10/2014 11:55 AM CDT) Hepatitis B Core Virus Antibody Total NON-REACTI VE NON-REACT [facility]) Comment: Test Performed at: [place] [address] GUERLINE MORSE DO,MPH 06/10/2014 11:5 5 AM CDT 06/10/2014 11:56 AM CDT Phil Houser MD LAB - CHEM ISTRY ORDERABLES [facility]) * HEPATITIS B SURFACE ANTIGEN W RFLX CONFIRMATION (06/10/2014 11:55 AM CDT) Hepatitis B Virus Surface Antigen NON-REACTI VE NON-REACT [facility]ANI[facility] Comment: Test Performed at: [place] [address] GUERLINE MORSE DO,MPH 06/10/2014 11:5 5 AM CDT 06/10/2014 11:56 AM CDT Phil Houser MD LAB - CHEM ISTRY ORDERABLES Performing Organization Address [facility] de Phone Number [facility] * HEPATITIS C ANTIBODY (06/10/2014 11:55 AM CDT) Hepatitis C Antibody NON-REACTI VE NON-REACT [facility] Signal/Cutoff 0.02 <1.00 [facility]) Comment: Test Performed at: [facility] [place] [address] [place] [address] GUERLINE MORSE DO,MPH 06/10/2014 11:5 5 AM CDT 06/10/2014 11:56 AM CDT Phil Houser MD LAB - CHEM ISTRY ORDERABLES Performing Organization Address [facility] de Phone Number [facility] * HEPATITIS A ANTIBODY (06/10/2014 11:55 AM CDT) Hepatitis A Virus Antibody Total NON-REACTI VE NON-REACT [facility]) Comment: Test Performed at: [facility] [place] [address] [place] [address] GUERLINE MORSE DO,MPH 06/10/2014 11:5 5 AM CDT 06/10/2014 11:56 AM CDT Phil Houser MD LAB - CHEM ISTRY ORDERABLES Performing Organization Address [facility] de Phone Number [facility] * IMAGING/RADIOLOGY/XRAY RESULTS ORDER (03/29/2014) Only the most recent of2 resultswithin the time period is included. Anatomical Region Laterality Modality Other Provider Unknown IMAGING Care Teams Controls Operator Molded Goods Relationship Specialty Start Date End Date Amanda Hanks MD [address] [place] [address] [address] [place] [address] PCP - General Family Medicine 04/18/14
--- OUTSIDE RECORDS SUMMARY | 2024-05-25 21:31 | XMS_ITS | Clinical Summary ---
Author Organization [facility] Address [address] [place] [address] Care Team Providers Care Latex Spooler Name Role Phone None, Provider MD Primary [...] this topic Insurance [employer] Care Teams Latex Spooler Relationship Specialty Start Date End Date None, Provider, MD PCP - General UNKNOWN PHYSICIAN SPECIALTY 11/03/23
--- OUTSIDE RECORDS SUMMARY | 2024-05-25 21:31 | XMS_ITS | Referral Summary ---
Author Organization [facility] Address [address] [address] Care Team Providers Care Pharmacy Associate Name Role Phone Amanda Hanks MD Primary Care Provider [phone] Source Comments [facility],non-owned Affiliates and Associated Physician Practices is [facility] private [facility] site organization consisting of ambulatory clinics and hospital sitesin [place], [place], [place] and [place]. This disclosure is being madepursuant to the Care Everywhere program and may not contain all information available regarding this patient. Last updated 17.[facility] Allergies No known active allergies Medications * [...] 65 Units subcutaneously. Active Cholecalciferol (VITAMIN D3) 62518 UNITS CAPS capsule Take 50,000 Units by [...] Comments Blood Pressure 170/92 04/08/2014 2:21 PM MAKE UP OPERATOR HELPER Pulse 116 04/08/2014 2:21 PM MAKE UP OPERATOR HELPER Temperature 36.9 C (98.5 F) 04/08/2014 2:21 PM MAKE UP OPERATOR HELPER Respiratory Rate 18 04/08/2014 2:21 PM MAKE UP OPERATOR HELPER Oxygen Saturation - - Inhaled Oxygen Concentration - - Weight 131.5 kg (290 lb) 05/20/2014 12:04 PM MAKE UP OPERATOR HELPER Height 175.3 cm (5' 9) 05/20/2014 12:04 PM MAKE UP OPERATOR HELPER Body Mass Index 42.83 05/20/2014 12:04 PM MAKE UP OPERATOR HELPER Plan of Treatment Not on file Procedures Procedure Name Priority Date/Time Associated Diagnosis Comments HEPATITIS C ANTIBODY Routine 06/10/2014 11:55 AM CDT from Last 3 Months or Most Recently Relevant to Health Maintenance Results * HEPATITIS C ANTIBODY (06/10/2014 11:55 AM CDT) Hepatitis C Antibody NON-REACTI VE NON-REACT [facility] Signal/Cutoff 0.02 <1.00 [facility] Comment: Test Performed at: [facility] [address] [address] GUERLINE MORSE DO,MPH 06/10/2014 11:5 5 AM CDT 06/10/2014 11:56 AM CDT Phil Houser MD LAB - CHEM ISTRY ORDERABLES [facility] from Last 3 Months or Most Recently Relevant to Health Maintenance Care Teams Pharmacy Associate Relationship Specialty Start Date End Date Amanda Hanks MD [address] [place] [address] [address] [place] [address] PCP - General Family Medicine 04/18/14
--- OUTSIDE RECORDS SUMMARY | 2024-05-25 21:31 | XMS_ITS | Referral Summary ---
Author Organization [facility] Address [facility] [place] [address] Care Team Providers Care Operators Teacher Name Role Phone Carol Staples MD Primary [...] (05/15/2021): Added automatically from request for surgery [id number] Closed displaced fracture of medial malleolus of right tibia 05/15/2021 Overview (05/25/2021): Added automatically from request for surgery [id number] Neurogenic bladder 04/17/2021 Overview (04/17/2021): Added automatically from request for surgery [id number] Assessment & Plan (09/03/2021 9:34 PM CDT): [...] week 09/07/2021 How often do you attend [facility] or nondenominational services? 1 to 4 times per year 09/07/2021 Do you belong to any clubs o r organizations such as judaism groups, unions, fraternal or athletic groups, or [...] place to sleep or slept in a mcc (including now)? No 09/07/2021 Personal Safety Answer Date Recorded Getting School Help Needed Not on file 04/02 Comments No Sex and Gender Information Value Date Recorded Sex Assigned at Not on file Legal Sex Female 12:38 AM DISTRIBUTION ENGINEERING TECHNOLOGIST Gender Identity Not on file Sexual Orientation Not on file Last Filed Vital Signs Vital Sign Reading Time Taken Comments Blood Pressure 126/76 02/03/2023 8:58 AM DISTRIBUTION ENGINEERING TECHNOLOGIST Pulse 69 02/03/2023 8:58 AM DISTRIBUTION ENGINEERING TECHNOLOGIST Temperature 36.7 C (98.1 F) 02/03/2023 8:58 AM DISTRIBUTION ENGINEERING TECHNOLOGIST Respiratory Rate 18 01/14/2022 9:20 AM CDT Oxygen Saturation 95% 09/15/2021 6:34 AM CDT Inhaled Oxygen Concentration - - Weight 129.7 kg (286 lb) 02/03/2023 8:58 AM DISTRIBUTION ENGINEERING TECHNOLOGIST Height 175.3 cm (5' 9) 02/03/2023 8:58 AM DISTRIBUTION ENGINEERING TECHNOLOGIST Body Mass Index 42.23 02/03/2023 8:58 AM DISTRIBUTION ENGINEERING TECHNOLOGIST Plan of Treatment Not on file Medical Devices Implanted Type Area Cut And Print Machine Operator Device Identifier Shelf Expiration Date Model / Serial / Lot [employer]/Ort [id number] [id number] 16.3x1.7mm 13 Hole Low Profile Variable Angle - S0 - [id number] Implanted:Qty: 1 on 05/16/2021 by Lori Carnes MD at [facility] Plate Right: Ankle [employer]/ Ortho [id number] 06/26/2028 [id number] / 0 / [id number] [employer]/Ort ho [id number] Evos 3.5mm 48mm Self Tap Cortex Screw Bone Sterile - S0 - [id number] Implanted:Qty: 1 on 05/16/2021 by Lori Carnes MD at [facility] Screw Right: Ankle [employer]/ Ortho [id number] / 0 / 0 [employer]/Ort ho [id number] Evos 3.5mm 50mm Self Tap Cortex Screw Bone Sterile - S0 - [id number] Implanted:Qty: 1 on 05/16/2021 by Lori Carnes MD at [facility] Screw Right: Ankle [employer]/ Ortho [id number] / 0 / 0 [employer]/Ort ho [id number] Evos Mini 2.7mm 4.5mm 12mm Self Tap Cortex T8 Screw Bone - S0 - [id number] Implanted:Qty: 1 on 05/16/2021 by Lori Carnes MD at [facility] Screw Right: Ankle [employer]/ Ortho [id number] / 0 / 0 [employer]/Ort ho [id number] Evos Mini 2.7mm 4.5mm 13mm Self Tap Cortex T8 Screw Bone - S0 - [id number] Implanted:Qty: 1 on 05/16/2021 by Lori Carnes MD at [facility] Screw Right: Ankle [employer]/ Ortho [id number] / 0 / 0 [employer]/Ort ho [id number] Evos Mini 2.7mm 4.5mm 15mm Self Tap Cortex T8 Screw Bone - S0 - [id number] Implanted:Qty: 3 on 05/16/2021 by Lori Carnes MD at [facility] Screw Right: Ankle [employer]/ Ortho [id number] / 0 / 0 [employer]/Ort ho [id number] Evos 3.5mm 12mm Self Tap Cortex Screw Bone Sterile - S0 - [id number] Implanted:Qty: 4 on 05/16/2021 by Lori Carnes MD at [facility] Screw Right: Ankle [employer]/ Ortho [id number] / 0 / 0 [employer]/Ort ho [id number] Evos 3.5mm 46mm Self Tap Cortex Screw Bone Sterile - S0 - [id number] Implanted:Qty: 1 on 05/16/2021 by Lori Carnes MD at [facility] Screw Right: Ankle [employer]/ Ortho [id number] / 0 / 0 Rt Shoulder Pin Right: Shoulder Lumbar Spine Fusion Instrumemtation Spine Lumbar [employer]/Ort ho [id number] Evos 3.5mm 75mm Self Tap Cortex Screw Bone Sterile - [id number] Implanted:Qty: 1 on 05/28/2021 by Randall Camp MD at [facility] Right: Ankle [employer]/ Ortho [id number] / / Explanted Type Area Cut And Print Machine Operator Device Identifier Shelf Expiration Date Model / Serial / Lot [employer]/O rtho [id number] Evos 2mm 14mm Provisional Pin Fixation Sterile - S0 - [id number] Explanted:Qty: 1 on 05/16/2021 at [facility] Pin Right: Ankle [employer]/Or tho [id number] / 0 / 0 Description:Temporary Placem ent; Provisional Fixation, only [employer]/O rtho [id number] Pin 25mm 2.5mm Fixation Evos Provisional Sterile - S0 - [id number] Explanted:Qty: 1 on 05/16/2021 at [facility] Pin Right: Ankle [employer]/Or tho [id number] / 0 / 0 Description:Temporary Placem ent; Provisional Fixation, only [employer]/O rtho [id number] Evos 3.5mm 15mm Self Tap Cortex Screw Bone Sterile - S0 - [id number] Explanted:Qty: 1 on 05/16/2021 at [facility] Screw Right: Ankle [employer]/Or tho [id number] / 0 / 0 Procedures Procedure Name Priority Date/Time Associated Diagnosis Comments EGFR Routine 09/11/2021 3:21 AM CDT HEMOGLOBIN A1C Routine 09/04/2021 4:18 AM CDT LIPID PANEL STAT 05/15/2021 1:38 PM DISTRIBUTION ENGINEERING TECHNOLOGIST from Last 3 Months or Most Recently [...] was last reviewed 2021. Testing performed by: [facility], [address] [place] [address], [place]., [address] Blood 09/11/2021 3:21 AM CDT 09/11/2021 5:45 AM CDT Dipti López MD LAB BLOOD ORDERABLES Final Res ult Performing Organization Address [facility] Co de Phone Number [facility] [address] [place] [address] * (ABNORMAL) Hemoglobin A1c (09/04/2021 4:18 AM CDT) Hgb A1C 6.4(H) 4.0 - 5.6 % [facility] Comment:Testing performed by : [address] [address] Estimated Average Glucose 137 mg/dL [facility] Comment: The ADA recommends reporting an estimated Average Glucose (eAG) with all Hemoglobin A1c results using the equation derived from a study of 507 normal and diabetic adults. Minority populations were underrepresented and children were not included. (Diabetes Care 31:7097-1198, 2008). The eAG is not equivalent to a fasting glucose. Testing performed by: [address] [address] Blood 09/04/2021 4:18 AM CDT 09/04/2021 5:27 AM CDT Adeline Bo DO LAB BLOOD ORDERABLES Final Re sult Performing Organization Address [facility] Co de Phone Number [facility] [address] [place] [address] * (ABNORMAL) Lipid panel (05/15/2021 1:38 PM DISTRIBUTION ENGINEERING TECHNOLOGIST) Cholesterol 155 30 - 199 mg/dL [facility] [...] revised on 2017. Triglycerides 372(H) <=149 mg/dL [facility] Comment: Interpretive Data Ages < or [...] revised on 2017. HDL 29(L) >=40 mg/dL [facility] Comment: Interpretive Data Ages < or [...] on 2017. LDL, calculated 52 <=129 mg/dL [facility] Comment: Interpretive Data Ages < or [...] revised on 2017. Non-HDL Cholesterol 126 mg/dL [facility] Comment: Interpretive Data Ages < or [...] [facility] Blood 05/15/2021 1:38 PM DISTRIBUTION ENGINEERING TECHNOLOGIST 05/15/2021 1:48 PM DISTRIBUTION ENGINEERING TECHNOLOGIST us Radha Lara MD LAB BLOOD ORDERABLES Raisa l Result [facility] [facility] [place] [address] from Last 3 Months or Most Recently Relevant to Health Maintenance Insurance [facility] MEDICARE [facility] [place] [address] T MEDICARE [facility] [place] [address] [facility] MEDICARE Advance Directives For more information, please contact: [phone] * Full Code (Latest Code Status on File) Date Activated Date Inactivated Comments 05/15/2021 10:09 PM 06/03/2021 10:44 PM Care Teams Operators Teacher Relationship Specialty Start Date End Date Carol Staples MD [address] [place], [place] [id number] PCP - General Family Medicine 07/18/20
--- NOTE | 2024-05-25 22:07 | PC.NURSE ---
went to room with Kristyn RAGLAND to attempt to obtain blood from patient. patient was down in cat scan at this time.
[2024-05-25] MEDS: MORPHINE SULFATE (*CRX) 4 MG/ML INJ 2 MG IV PUSH (22:26)
[2024-05-25 22:37] LABS: Basophils Percent Auto 0.4 % (0.2-1.2); Eosinophils Absolute Auto 0.1 K/mm3 (0-0.3); Hematocrit 38.5 % (37.0-47.0); Hemoglobin 12.6 g/dL (12.0-15.0); Immature Granulocyte Absolute 0.04 K/mm3 (0.00-0.031); Immature Granulocyte Percent A 0.4 % (0-0.5); Lymphocytes Absolute Auto 1.46 K/mm3 (0.9-3.2); Lymphocytes Percent Auto 14.9 % (18.3-44.2); Mean Corpuscular HGB Conc 32.7 g/dl (32-36); Mean Corpuscular Hemoglobin 32.4 pg (26-34); Mean Platelet Volume 10.9 fl (7.4-10.4); Monocytes Absolute Auto 0.8 K/mm3 (0.1-0.6); Monocytes Percent Auto 7.8 % (2.6-8.5); Neutrophils Absolute Auto 7.4 K/mm3 (1.3-6.7); Neutrophils Percent Auto 75.5 % (45.5-73.1); Platelet Count Result 210 k/mm3 (150-375); Red Blood Count 3.89 M/mm3 (4.2-5.4); Red Cell Distribution Width 16.1 % (11.5-14.5); White Blood Count 9.8 K/mm3 (4.5-10.0)
[2024-05-25 22:48] LABS: Albumin Level 4.3 g/dL (3.5-5.1); Alkaline Phosphatase 131 U/L (38-126); Anion Gap 15 mmol/L (4-12); Aspartate Amino Transferase 42 U/L (14-36); Bilirubin,Total 0.8 mg/dL (0.2-1.3); Blood Urea Nitrogen 47 mg/dL (7-17); Calcium 10.5 mg/dL (8.4-10.2); Carbon Dioxide 25 mmol/L (22-30); Chloride 99 mmol/L (98-107); Estimated CRCL calculation 38 ml/min; Estimated Glomerular Filt Rate 30; Glucose 203 mg/dL (65-110); Magnesium 1.8 mg/dL (1.6-2.3); Potassium 4.6 mmol/L (3.4-5.0); Sodium 139 mmol/L (137-145)
[2024-05-25 22:50] VITALS: BP 148/79; PULSE 91; RESP 16; O2SAT 100
[2024-05-25 22:54] LABS: Alanine Aminotransferase 48 U/L (6-35)
[2024-05-25] MEDS: MAGNESIUM SULF 1 GM/D5W 100 ML 1 GM/100 ML BAG IVPB (23:56)
[2024-05-26] VITALS (7 sets, daily range): BP systolic 133–158; BP diastolic 55–86; PULSE 76–112; RESP 16–20; TEMP 36.4–37.2; O2SAT 90–95; BMI 44.9
--- NOTE | 2024-05-26 02:20 | PM.IMHP ---
H&P: HPI History of Present Illness Date/Time: 05/26/24 03:30 Chief Complaint: Bladder spasms. Narrative: This is a 69-year-old female with history of dementia with behavior disturbances, depression with psychosis, psychiatric placement with suicidal ideation, poorly controlled insulin-dependent type 2 diabetes mellitus, obstructive sleep apnea/obesity hypoventilation syndrome, pulmonary embolism on chronic anticoagulation, neurogenic bladder with chronic indwelling catheter, chronic pain syndrome with chronic opioid dependence, chronic benzodiazepine use, and other comorbidities who presented to the emergency department with complaints of bladder spasms. Her Vigil catheter was last exchanged on Tuesday and seemed to be working fine until yesterday afternoon when she noticed urine leaking from around the catheter. Not long thereafter she developed severe spasms in the bladder along with aching pain in the suprapubic region and low back. Home health nurses attempted to irrigate catheter without success and she was sent to the ED for evaluation. She denies fever, nausea, vomiting, and diarrhea. In the ED: Vital signs were stable on arrival. Labs were significant for WBC count of 9.8, BUN 47, creatinine 1.70 (baseline). Urine was turbid and showed 2+ protein, 2+ blood, positive nitrates, 3+ leukocyte esterase, 11 to 20 RBC, greater than 100 WBC and 4+ bacteria. CT of the abdomen pelvis showed a soft tissue density adjacent to the left kidney lower pole and other nonacute findings. Vigil catheter was exchanged in the ED and yielded 450 mL of urine almost immediately. She was given ceftriaxone 1 g and plans were for discharge home however the patient did not feel as though she could go home due to continued, severe bladder spasms and she is being admitted in this setting. Review of Systems Review of Systems: 12 systems were reviewed and are negative except for as per HPI. [facility] Past Medical History Medical History Hypothyroidism Mild cognitive impairment with memory loss Obstructive sleep apnea on CPAP Insulin dependent type 2 diabetes mellitus Chronic venous insufficiency Diabetic gastroparesis Chronic indwelling Vigil catheter neurogenic bladder Dementia with behavioral disturbance Morbid obesity with BMI of 40.0-44.9, adult Vitamin D deficiency, unspecified Severe recurrent major depressive disorder with psychotic features Post-menopausal Polypharmacy Mixed hyperlipidemia Gout Dyskinesia, tardive Diabetic nephropathy associated with type 2 diabetes mellitus Depressive type psychosis Chronic pain disorder Chronic kidney disease, stage III (moderate) Benzodiazepine abuse, continuous Anxiety Antipsychotic-induced akathisia Pulmonary embolism (2020) Benign essential hypertension Brain hypoxia Chronic obstructive pulmonary disease Psychophysiological insomnia Surgical History Surgical History History of section History of hysterectomy History of back surgery Family History Family History Father Diabetes mellitus Hypertension Patient's father is , Onset Age: 75 Family history of renal failure Heart disease Cancer Mother Family history of malignant neoplasm of stomach Hypertension Cancer Thyroid disorder Sibling Depression Other Family history of arthritis Social History Social History (Updated 05/26/24 @ 03:33 by Pooja Hernandez PA-C) Social History: Surrogate medical decision maker: Serjio Michel, spouse. Code status: Full code. Smoking status: Never smoker Second hand tobacco smoke exposure: No Alcohol intake: never Substance use: never Substance use type: marijuana Other substance usage details: hx of marijuana use 2022 Do You Feel Safe in your Home?: Yes Lack of Transportation: No Lack of Food: Never True Current Housing: I Have Housing Concerned About Future Housing: No Difficulty Paying Gas/Electric Bills: No Difficulty Paying for Meds: No Currently Unemployed: No Education: High School Diploma/GED Difficulty w/ Childcare or Family Care: No Living arrangements: with family Additional living arrangements comments: She lives at home with her . Her daughters help at night and she has caregivers as well. Occupation/Education: retired Spiritual care concerns: No Meds Home Medications and Allergies Home Medications ?Medication ?Instructions ?Recorded ?Confirmed ?Type acetaminophen 500 mg tablet 1,000 mg PO BID Pain 07/10/20 05/26/24 History (Tylenol Extra Strength) multivit with minerals-iron 18 1 tablet PO DAILY 03/06/21 05/26/24 History mg-folic ac 400 mcg-vit K 25 mcg tablet (Adults Multivitamin) aspirin 81 mg tablet,delayed 81 mg PO BID 10/30/21 05/26/24 History release clotrimazole-betamethasone 1 1 applic topical BID 05/18/23 05/26/24 History %-0.05 % topical cream dextrin 3 gram/4 gram oral powder 2 tsp PO TID PRN Constipation 05/18/23 05/26/24 History (Clear Fiber) cholecalciferol (vitamin D3) 1,250 1,250 mcg PO WEEKLY #12 tabs 08/25/23 05/26/24 Rx mcg (50,000 unit) tablet atorvastatin 10 mg tablet 10 mg PO DAILY 02/02/24 05/26/24 History ferrous sulfate 325 mg (65 mg 325 mg PO BID 02/14/24 05/26/24 History iron) tablet lactobacillus combination no.9 1 cap PO DAILY 02/14/24 05/26/24 History nystatin 100,000 unit/gram topical 1 applic topical BID 02/14/24 05/26/24 History cream apixaban 2.5 mg tablet (Eliquis) 2.5 mg PO BID #60 tabs 03/19/24 05/26/24 Rx clonidine HCl 0.1 mg tablet 0.1 mg PO BID #180 tabs 03/19/24 05/26/24 Rx memantine ER 28 mg-donepezil 10 mg 1 cap PO HS 03/23/24 05/26/24 History capsule sprinkle,ext.release 24 hr (Namzaric) oxybutynin chloride 5 mg 5 mg PO DAILY PRN bladder spasms 03/23/24 05/26/24 History tablet,extended release 24 hr guaifenesin 600 mg tablet, 1,200 mg (2 x 600 mg) PO Q12HR #14 03/26/24 05/26/24 Rx extended release 12 hr (Mucus tabs Relief ER) pregabalin 100 mg capsule 100 mg PO HS #30 caps 03/26/24 05/26/24 Rx blood-glucose meter,continuous #1 ea 03/27/24 05/26/24 Rx (FreeStyle Mohan 3 [place]) blood-glucose sensor (FreeStyle #1 ea 03/27/24 05/26/24 Rx Mohan 3 Sensor device) furosemide 40 mg tablet See Rx Instructions .Route 03/27/24 05/26/24 Rx .COMPLEX #90 tabs benztropine 0.5 mg tablet See Rx Instructions .Route 04/13/24 05/26/24 Rx .COMPLEX #270 tabs blood-glucose meter,continuous #1 ea 04/13/24 05/26/24 Rx (FreeStyle Mohan 3 [place]) blood-glucose sensor (FreeStyle #1 ea 04/13/24 05/26/24 Rx Mohan 3 Sensor device) lactulose 10 gram/15 mL oral 15 ml PO BID PRN Constipation 04/13/24 05/26/24 Rx solution #3,785 mL tramadol 50 mg tablet 50 mg PO BID PRN pain #60 tabs 04/13/24 05/26/24 Rx duloxetine 30 mg capsule,delayed 30 mg PO BID #60 caps 04/20/24 05/26/24 Rx release pen needle, diabetic 31 gauge x #400 ea 04/23/24 05/26/24 Rx 5/16 (BD Ultra-Fine Short Pen Needle) insulin lispro 100 unit/mL See Rx Instructions .Route 05/03/24 05/26/24 Rx subcutaneous pen .COMPLEX #15 mL dulaglutide 4.5 mg/0.5 mL 4.5 mg (0.5 mL) subcut WEEKLY #2 mL 05/14/24 05/26/24 Rx subcutaneous pen injector insulin glargine 100 unit/mL (3 40 unit (0.4 mL) subcut BID #15 mL 05/14/24 05/26/24 Rx mL) subcutaneous pen (Basaglar KwikPen U-100 Insulin) metoprolol tartrate 50 mg tablet 50 mg PO Q12H #60 tabs 05/21/24 05/26/24 Rx quetiapine 50 mg tablet 50 mg PO BID #60 tabs 05/21/24 05/26/24 Rx Allergies Allergy/AdvReac Type Severity Reaction Status Date / Time ciprofloxacin Allergy Mild Hives Verified 05/25/24 16:50 metronidazole Allergy Mild Hives Verified 05/25/24 16:50 divalproex sodium Allergy Unknown Unknown Verified 05/25/24 16:50 vancomycin Allergy Unknown Unknown Verified 05/25/24 16:50 Vital Signs Vital Signs - 24 hr 05/25/24 16:56 05/25/24 21:18 05/25/24 22:50 Temperature 98.1 F Pulse Rate 89 89 91 Respiratory Rate 22 H 16 16 Blood Pressure 149/77 H 148/104 H 148/79 H Pulse Oximetry 98 98 100 Oxygen Delivery Room Air Exam Narrative: General: Chronically ill-appearing female supine in bed. Moans frequently and states she feels well and is in pain. Weight: 133.9 kg. BMI: 44.9. HEENT: PERRL, EOMI. Sclera anicteric. Moist mucous membranes. Neck: Supple. Exam limited due to neck circumference. Respiratory: Respirations are nonlabored. Lung sounds were diminished due to body habitus otherwise clear to auscultation. Cardiovascular: Regular rate and rhythm. Gastrointestinal: Abdomen is soft, morbidly obese, and nondistended with positive bowel sounds. She complains of tenderness to palpation throughout the lower abdomen with equivocal bilateral CVA tenderness. Genitourinary: Catheter draining cloudy yellow urine. Skin: Warm and dry. Macerated buttocks according to RN. Extremities: No cyanosis or clubbing. 2+ lower extremity pitting edema. Peripheral pulses palpable. Neurological: Alert. Cranial nerves 2-12 are grossly intact. Speech is clear. No facial asymmetry. Generalized weakness without gross focal findings. She did not fully participate in neurologic exam. Psychiatric: Mostly cooperative with appropriate mood and flat/odd affect. H&P: Results Labs Labs: Short CBC 05/25/24 Range/Units 22:26 WBC 9.8 (4.5-10.0) K/mm3 Hgb 12.6 (12.0-15.0) g/dL Hct 38.5 (37.0-47.0) % Plt Count 210 (150-375) k/mm3 BMP 05/25/24 22:26 Sodium 139 Potassium 4.6 Chloride 99 Carbon Dioxide 25 BUN 47 H D Creatinine 1.70 H Glucose 203 H Calcium 10.5 H Liver Function 05/25/24 Range/Units 22:26 Total Bilirubin 0.8 (0.2-1.3) mg/dL AST 42 H (14-36) U/L ALT 48 H (6-35) U/L Alkaline Phosphatase 131 H (38-126) U/L Albumin 4.3 (3.5-5.1) g/dL Urine 05/25/24 Range/Units 21:02 Urine Color Yellow (Yellow) Urine Appearance Turbid H (Clear) Urine pH 7.0 (5.0-9.0) Ur Specific [place] 1.014 (1.001-1.035) Urine Protein 2+ H (Negative) mg/dL Urine Glucose (UA) Negative (Negative) mg/dL Impressions Abdomen/Pelvis CT 05/25/24 22:31 IMPRESSION: No evidence of appendicitis, diverticulitis or intestinal obstruction. Fat infiltration of the liver. Hepatomegaly. Soft tissue density adjacent to the left kidney lower pole. Ultrasound evaluation advised. Distended gallbladder with no definite stones. Assessment and Plan Assessment and plan (1) Urinary tract infection: Code(s): N39.0 - Urinary tract infection, site not specified Status: Acute (2) Bladder spasm: Code(s): N32.89 - Other specified disorders of bladder Status: Acute (3) Abnormal computed tomography of kidney: Code(s): R93.429 - Abnormal radiologic findings on diagnostic imaging of unspecified kidney Status: Acute (4) Chronic indwelling Vigil catheter: Code(s): Z97.8 - Presence of other specified devices Status: Acute (5) Benign essential hypertension: Code(s): I10 - Essential (primary) hypertension Status: Acute (6) Insulin dependent type 2 diabetes mellitus: Code(s): E11.9 - Type 2 diabetes mellitus without complications; Z79.4 - FDC (current) use of insulin Status: Acute (7) Stage 3b chronic kidney disease: Code(s): N18.32 - Chronic kidney disease, stage 3b Status: Chronic (8) Chronic pain: Qualifiers: Chronic pain type: chronic pain syndrome Qualified Code(s): G89.4 - Chronic pain syndrome Code(s): G89.29 - Other chronic pain Status: Acute (9) Chronic anticoagulation: Code(s): Z79.01 - emergency management specialist (current) use of anticoagulants Status: Acute Plan The patient presented to the emergency department for evaluation of severe bladder spasms as detailed in HPI. Labs, imaging, EKG, and all reports were personally reviewed. The patient reports feeling poorly the last day with chills, decreased appetite, and discomfort in the lower abdomen and back associated with bladder spasms. While she is afebrile with normal WBC count, I think her symptoms may very well indicate an active infection and we will continue with ceftriaxone, pending urine culture. She continues to have bladder spasms despite having her Vigil catheter exchanged, which is now draining without issue. Trial oxybutynin. Renal ultrasound ordered for evaluation of soft tissue density adjacent to the left kidney lower pole seen on CT scan. Her kidney function is stable on review of previous labs. Blood pressures have been reasonable. Other chronic conditions are stable per patient report. Continue basal insulin. Initiate sliding scale insulin, Accu-Cheks, and hypoglycemic protocol. Findings and treatment plan were discussed with the patient. Questions were solicited and answered to satisfaction. The patient's medical management will be taken over by the hospitalist team in a.m. Quality VTE Prophylaxis VTE prophylaxis: pharmacologic ordered (on apixaban) The patient has been admitted under observation status. Hospitalist MIPS Advance Care Plan I have confirmed that the patient's Advanced Care Plan is present, code status is documented, or surrogate decision maker is listed in patient medical record.: Yes Medication Reconciliation I have utilized all available resources to obtain, update and review the patients current medications (includes all prescriptions, OTC, herbals, cannabis, and nutritional supplements).: Yes
--- NOTE | 2024-05-26 02:47 | ADMGEN ---
This patient, Christine Michel, was admitted to Medical Room 257-. Patient/family oriented to hospital policies and general routines including ID bracelet, bed and alarms, visiting hours, pain management, procedures, bathroom and other care routines, personal items, smoking policy, room service/diet, and visiting hours. Information on how to activate the Rapid Response Team has been discussed. Patient/Family are encouraged to report perceived risks to care and to ask questions if they do not understand what they are told or what they should do.
[2024-05-26] MEDS: HYDROcodone/acetaminophen (*CRX) 5-325 MG TABLET 1 TAB PO (03:22)
[2024-05-26 05:50] LABS: Hematocrit 38.7 % (37.0-47.0); Hemoglobin 12.2 g/dL (12.0-15.0); Mean Corpuscular HGB Conc 31.5 g/dl (32-36); Mean Corpuscular Hemoglobin 32.3 pg (26-34); Mean Corpuscular Volume 102.4 fl (80-100); Mean Platelet Volume 11.2 fl (7.4-10.4); Platelet Count Result 194 k/mm3 (150-375); Red Blood Count 3.78 M/mm3 (4.2-5.4); Red Cell Distribution Width 16.5 % (11.5-14.5); White Blood Count 10.1 K/mm3 (4.5-10.0)
[2024-05-26 06:06] LABS: Alanine Aminotransferase 38 U/L (6-35); Albumin Level 3.9 g/dL (3.5-5.1); Alkaline Phosphatase 116 U/L (38-126); Anion Gap 13 mmol/L (4-12); Aspartate Amino Transferase 37 U/L (14-36); Bilirubin,Total 0.7 mg/dL (0.2-1.3); Blood Urea Nitrogen 45 mg/dL (7-17); Calcium 9.9 mg/dL (8.4-10.2); Carbon Dioxide 25 mmol/L (22-30); Chloride 98 mmol/L (98-107); Estimated CRCL calculation 41 ml/min; Estimated Glomerular Filt Rate 30; Glucose 232 mg/dL (65-110); Sodium 136 mmol/L (137-145)
[2024-05-26 07:53] LABS: Glucose Point of Care 255 mg/dl (65-105)
[2024-05-26] MEDS: INSULIN ASPART (*BKC) 100 UNITS/ML SUB-Q ×7 (08:05→20:05)
[2024-05-26] MEDS: FERROUS SULFATE 325 MG TABLET DR BY MOUTH ×2 (08:24→17:52)
[2024-05-26] MEDS: ATORVASTATIN 10 MG TABLET PO (08:24)
[2024-05-26] MEDS: ASPIRIN 81 MG ENTERIC TABLET PO ×2 (08:24→17:52)
[2024-05-26] MEDS: guaiFENesin 12 HR 600 MG TABCR 1200 MG PO ×2 (08:24→20:02)
[2024-05-26] MEDS: ACIDOPHILUS/BULGARICUS CHEWABLE TABLET 1 TABLET BY MOUTH (08:24)
[2024-05-26] MEDS: APIXABAN 2.5 MG TABLET PO ×2 (08:24→20:03)
[2024-05-26] MEDS: FUROSEMIDE 40 MG TABLET BY MOUTH (08:24)
[2024-05-26] MEDS: MULTIVITAMINS /C LUTEIN (CENTRUM SILVER) TABLET *BKC 1 TAB PO (08:24)
[2024-05-26] MEDS: QUEtiapine FUMARATE 25 MG TABLET 50 MG PO ×2 (08:24→17:52)
[2024-05-26] MEDS: METOPROLOL TARTRATE 50 MG TAB PO ×2 (08:24→20:02)
[2024-05-26] MEDS: BENZTROPINE MESYLATE 0.5 MG TABLET BY MOUTH ×3 (08:25→17:52)
[2024-05-26] MEDS: DULoxetine HCL 30 MG CAPSULE.DR PO ×2 (08:25→17:52)
[2024-05-26] MEDS: cloNIDine HCL 0.1 MG TABLET PO ×2 (08:25→17:52)
[2024-05-26] MEDS: INSULIN GLARGINE (*BKC) 100 UNITS/ML 40 UNITS SUB-Q ×2 (08:26→20:06)
[2024-05-26] MEDS: BETAMETHASONE/CLOTRIMAZOLE CREAM 15 GM TUBE 1 APPLIC TOPICAL ×2 (08:26→17:58)
--- NOTE | 2024-05-26 10:35 | P.PNIM_ITS ---
Progress Note: A&P Assessment and Plan (1) Urinary tract infection: Code(s): N39.0 - Urinary tract infection, site not specified Status: Acute Assessment and Plan: * UA showed turbid urine appearance, 2+ urine protein, 2+ urine blood, positive urine nitrate, 3+ leukocyte, 11-20 urine RBC, greater than 100 urine WBC, 4+ urine bacteria * urine culture was obtained and pending * continue Rocephin * reviewed past urine cultures which showed E coli and Klebsiella pneumoniae which was sensitive to Rocephin in the past * history of urinary tract infections likely due to her chronic Vigil, none of which turned out to be ESBL (2) Bladder spasm: Code(s): N32.89 - Other specified disorders of bladder Status: Acute Assessment and Plan: * continue Ditropan (3) Abnormal computed tomography of kidney: Code(s): R93.429 - Abnormal radiologic findings on diagnostic imaging of unspecified kidney Status: Acute Assessment and Plan: * abdomen/pelvis CT shown fat infiltration of the liver, hepatomegaly, soft tissue density adjacent to the left kidney lower pole * will get renal ultrasound (4) Chronic indwelling Vigil catheter: Code(s): Z97.8 - Presence of other specified devices Status: Acute Assessment and Plan: * exchanged while in the ED with 450 mL draining initially (5) Benign essential hypertension: Code(s): I10 - Essential (primary) hypertension Status: Acute Assessment and Plan: * blood pressure ranging 148/79 to 158/78 * continue metoprolol (6) Insulin dependent type 2 diabetes mellitus: Code(s): E11.9 - Type 2 diabetes mellitus without complications; Z79.4 - group home (current) use of insulin Status: Acute Assessment and Plan: * Blood sugars ranging to 06/09/2054 * Hgb A1C 10.4 on 04/27/2024 * Accu checks AC/HS * high-dose SSI ordered * insulin aspart 5 units subq t.i.d. with meals * Hold dulaglutide * hypoglycemic protocol in place * Diabetic diet ordered (7) Stage 3b chronic kidney disease: Code(s): N18.32 - Chronic kidney disease, stage 3b Status: Chronic Assessment and Plan: * creatinine 1.68, EGFR 30 * appears to be at baseline * continue to trend Time Spent With Patient Time with patient: 25 - 35 minutes Subjective Date/time seen: 05/26/24 10:35 Interval history: Interval history: This is a 69-year-old female with a significant past medical history of dementia with behavior disturbances, depression with psychosis, psychiatric placement was suicidal ideation, type 2 diabetes mellitus- poorly controlled, obstructive sleep apnea, hypoventilation syndrome, PE on chronic anticoagulation, neurogenic bladder with chronic indwelling catheter, chronic pain syndrome, chronic opioid and benzo use who presented to the hospital with complaints of bladder spasms. Her Vigil was exchanged on Tuesday of this week however she noticed some urine leaking around the catheter. Home health tried to irrigate the catheter without success and then center to the emergency room for further evaluation. Workup in the hospital included an abdomen/ pelvis CT which shown no evidence of appendicitis, diverticulitis, intestinal obstruction; fat infiltration of the liver, hepatomegaly, soft tissue density adjacent to the left kidney lower pole, distended gallbladder with no definite stones. Initial labs shown a normal white blood cell count of 9.8, anion gap 15, creatinine 1.70, EGFR 30, blood sugars ranging 203-255, calcium 10.5, AST 42, ALT 48, alkaline phosphate 131. UA was obtained and showed turbid urine appearance, 2+ urine protein, 2+ urine blood, positive nitrate, 3+ leukocyte, 11-20 urine RBC, greater than 100 urine WBC, 4+ urine bacteria. Urine culture was obtained and pending. Patient was given pain medication, Ditropan, 1 g of magnesium, and started on Rocephin while in the ED. tasks urine cultures were reviewed and shown E coli which was sensitive to Rocephin, Klebsiella pneumoniae sensitive to Rocephin in the past year. She has history of multiple UTIs in the past. No evidence of ESBL. Vigil catheter was exchanged again while in the ED and patient had 450 mL in the bladder at that time. Subjective: Patient denies any new complaints today. Labs reviewed. Review of Systems Review of Systems: 12 systems were reviewed and are negativ e except for as per HPI. All systems reviewed & are unremarkable except as noted in HPI and below Exam Narrative: General: In no acute distress, well nourished Head: atraumatic, no encephalopathy Eyes:PERRLA, sclera clear ENT: moist mucous membranes, nasal passages clear Neck: supple, no JVD, no adenopathy, trachea midline Cardiac: Normal S1 and S2. No murmur, gallops or friction rubs, peripheral pulses intact. Respiratory: Lungs clear to auscultation, no adventitious lung sounds Gastrointestinal: soft, non-distended, non-tender, normoactive bowel sounds. : voiding without difficulty. Extremities: moves all extremities well, no edema Skin: clean, dry, intact. No wounds or lesions. Neuro: Alert and oriented x4, cranial nerves intact, no neuro deficits. Psych: normal mood, normal affect, interactive Objective Data Vital Signs Vital Signs: Vital Signs - 24 hr 05/25/24 16:56 05/25/24 21:18 05/25/24 22:50 Temperature 98.1 F Pulse Rate 89 89 91 Respiratory Rate 22 H 16 16 Blood Pressure 149/77 H 148/104 H 148/79 H Pulse Oximetry 98 98 100 Oxygen Delivery Room Air 05/26/24 02:51 05/26/24 02:52 05/26/24 04:27 Temperature 98.1 F 98.1 F Pulse Rate 93 112 H Respiratory Rate 20 18 Blood Pressure 158/78 H 143/86 H Pulse Oximetry 90 91 Oxygen Delivery Room Air 05/26/24 08:20 05/26/24 08:24 Temperature 97.6 F Pulse Rate 96 98 Respiratory Rate 16 Blood Pressure 149/60 H Pulse Oximetry 94 Oxygen Delivery Intake/Output Intake/Output: Intake & Output 05/23/24 05/24/24 05/25/24 05/26/24 23:59 23:59 23:59 23:59 Intake Total 270 Output Total 450 450 Balance -450 -180 Meds/Results Medications: Active Medications Generic Name Dose Route Start Last Admin Trade Name Freq PRN Reason Stop Dose Admin Acetaminophen 650 mg 05/26/24 01:58 Acetaminophen 325 Mg Tablet PO Q4H PRN Mild Pain (1-3) or Fever Hydrocodone Bitart/Acetaminophen 1 tab 05/26/24 01:58 05/26/24 03:22 Hydrocodone/Acetaminophen (*Crx) 5-325 Mg Tablet PO 1 tab Q4H PRN Administration Pain Rated 4-6 Apixaban 2.5 mg 05/26/24 09:00 05/26/24 08:24 Apixaban 2.5 Mg Tablet PO 2.5 mg Q12HR EMMIE Administration Aspirin 81 mg 05/26/24 09:00 05/26/24 08:24 Aspirin 81 Mg Enteric Tablet PO 81 mg BID EMMIE Administration Atorvastatin Calcium 10 mg 05/26/24 09:00 05/26/24 08:24 Atorvastatin 10 Mg Tablet PO 10 mg DAILY EMMIE Administration Benztropine Mesylate 0.5 mg 05/26/24 09:00 05/26/24 08:25 Benztropine Mesylate 0.5 Mg Tablet BY MOUTH 0.5 mg TID EMMIE Administration Clonidine HCl 0.1 mg 05/26/24 09:00 05/26/24 08:25 Clonidine Hcl 0.1 Mg Tablet PO 0.1 mg BID EMMIE Administration Clotrimazole 1 applic 05/26/24 09:00 05/26/24 08:26 Betamethasone/Clotrimazole Cream 15 Gm Tube TOPICAL 1 applic BID EMMIE Administration Dextrose 12.5 gm 05/26/24 03:40 Dextrose 50% 25 Gm/50 Ml Syringe IV PUSH PRN PRN Hypoglycemia Protocol Donepezil HCl 10 mg 05/26/24 21:00 Donepezil Hcl 10 Mg Tablet PO HS [facility] Duloxetine HCl 30 mg 05/26/24 09:00 05/26/24 08:25 Duloxetine Hcl 30 Mg Capsule.Dr PO 30 mg BID EMMIE Administration Ergocalciferol 50,000 units 06/01/24 09:00 Ergocalciferol 50,000 Units Capsule PO Fr@0900 [facility] Ferrous Sulfate 325 mg 05/26/24 09:00 05/26/24 08:24 Ferrous Sulfate [address] BY MOUTH 325 mg BID EMMIE Administration Furosemide 40 mg 05/26/24 09:00 05/26/24 08:24 Furosemide 40 Mg Tablet BY MOUTH 40 mg DAILY [facility] Administration Glucagon 1 mg 05/26/24 03:40 Glucagon For Inj 1 Mg Vial IM PRN PRN Hypoglycemia Protocol Glucose 15 gm 05/26/24 03:40 Glucose Oral Gel 15 Gm Of Glucse In 37.5 Gm Tube PO PRN PRN Hypoglycemia Protocol Guaifenesin 1,200 mg 05/26/24 09:00 05/26/24 08:24 Guaifenesin 12 Hr 600 Mg Tabcr PO 1,200 mg Q12HR EMMIE Administration Ceftriaxone Sodium 1 gm in 50 mls @ 100 mls/hr 05/27/24 03:00 Rocephin 1 Gm/Ns 50 Ml IVPB Q24H EMMIE Dextrose 1,000 mls @ 100 mls/hr 05/26/24 03:40 Dextrose 5% 1,000 Ml IVPB PRN PRN Hypoglycemia Protocol Insulin Aspart 4 - 8 units 05/26/24 08:00 05/26/24 08:05 Insulin Aspart (*Bkc) 100 Units/Ml SUB-Q 5 units TIDWM [facility] Administration Protocol Insulin Aspart 2 - 4 units 05/26/24 21:00 Insulin Aspart (*Bkc) 100 Units/Ml SUB-Q HS [facility] Protocol Insulin Aspart 5 units 05/26/24 08:00 05/26/24 08:26 Insulin Aspart (*Bkc) 100 Units/Ml SUB-Q 5 units TIDWM [facility] Administration Insulin Glargine 40 units 05/26/24 09:00 05/26/24 08:26 Insulin Glargine (*Bkc) 100 Units/Ml SUB-Q 40 units BID [facility] Administration Lactobacillus Acidophilus 1 tablet 05/26/24 09:00 05/26/24 08:24 Acidophilus/Bulgaricus Chewable Tablet BY MOUTH 1 tablet DAILY [facility] Administration Lactulose 15 gm 05/26/24 05:56 Lactulose 20 Gm/30 Ml Udc PO BID PRN Constipation Memantine 28 mg 05/26/24 21:00 Memantine Hcl Xr 28 Mg Cap PO [facility] Metoprolol Tartrate 50 mg 05/26/24 09:00 05/26/24 08:24 Metoprolol Tartrate 50 Mg Tab PO 50 mg Q12HR [facility] Administration Multivitamins/Minerals 1 tab 05/26/24 09:00 05/26/24 08:24 Multivitamins /C Lutein (Centrum Silver) Tablet *Bkc PO 1 tab DAILY [facility] Administration Ondansetron HCl 4 mg 05/26/24 01:58 Ondansetron Inj 4 Mg/2 Ml Vial IV PUSH Q4H PRN Nausea Oxybutynin Chloride 5 mg 05/26/24 03:41 Oxybutynin Chloride Xl 5 Mg Tab.Er.24 PO DAILY PRN bladder spasms Pregabalin 100 mg 05/26/24 21:00 Pregabalin (*Crx) 50 Mg Capsule PO [facility] Quetiapine Fumarate 50 mg 05/26/24 09:00 05/26/24 08:24 Quetiapine Fumarate 25 Mg Tablet PO 50 mg BID EMMIE Administration Radiology Results: ITS Impressions Abdomen/Pelvis CT 05/25/24 22:31 IMPRESSION: No evidence of appendicitis, diverticulitis or intestinal obstruction. Fat infiltration of the liver. Hepatomegaly. Soft tissue density adjacent to the left kidney lower pole. Ultrasound evaluation advised. Distended gallbladder with no definite stones. Labs Labs: Laboratory Results - last 24 hr 05/25/24 05/25/24 05/26/24 21:02 22:26 05:19 WBC 9.8 10.1 H RBC 3.89 L 3.78 L Hgb 12.6 12.2 Hct 38.5 38.7 MCV 99.0 102.4 H MCH 32.4 32.3 MCHC 32.7 31.5 L RDW 16.1 H 16.5 H Plt Count 210 194 MPV 10.9 H 11.2 H Immature Gran % (Auto) 0.4 Neut % (Auto) 75.5 H Lymph % (Auto) 14.9 L [place] % (Auto) 7.8 Eos % (Auto) 1.0 Baso % (Auto) 0.4 Lymph # (Auto) 1.46 [place] # (Auto) 0.8 H Eos # (Auto) 0.1 Baso # (Auto) 0.0 Abs Immat Gran (auto) 0.04 H Absolute Neuts (auto) 7.4 H Absolute Nucleated RBC 0.000 Nucleated RBC % 0.0 Sodium 139 136 L Potassium 4.6 4.0 Chloride 99 98 Carbon Dioxide 25 25 Anion Gap 15 H 13 H BUN 47 H D 45 H Creatinine 1.70 H 1.68 H Estim Creat Clear Calc 38 41 Estimated GFR 30 L 30 L Glucose 203 H 232 H POC Capillary Glucose Calcium 10.5 H 9.9 Magnesium 1.8 Total Bilirubin 0.8 0.7 AST 42 H 37 H ALT 48 H 38 H Alkaline Phosphatase 131 H 116 Total Protein 8.0 7.0 Albumin 4.3 3.9 Urine Color Yellow Urine Appearance Turbid H Urine pH 7.0 Ur Specific [place] 1.014 Urine Protein 2+ H Urine Glucose (UA) Negative Urine Ketones Negative Ur Blood (Man) 2+ H Urine Nitrate Positive H Urine Bilirubin Negative Urine Urobilinogen 0.2 Leukocyte Esterase Rfl 3+ H Urine RBC 11-20 H Urine WBC >100 H Ur Squamous Epith Cells None seen Urine Bacteria 4+ Urine Casts 0-2 05/26/24 07:40 WBC RBC Hgb Hct MCV MCH MCHC RDW Plt Count MPV Immature Gran % (Auto) Neut % (Auto) Lymph % (Auto) [place] % (Auto) Eos % (Auto) Baso % (Auto) Lymph # (Auto) [place] # (Auto) Eos # (Auto) Baso # (Auto) Abs Immat Gran (auto) Absolute Neuts (auto) Absolute Nucleated RBC Nucleated RBC % Sodium Potassium Chloride Carbon Dioxide Anion Gap BUN Creatinine Estim Creat Clear Calc Estimated GFR Glucose POC Capillary Glucose 255 H Calcium Magnesium Total Bilirubin AST ALT Alkaline Phosphatase Total Protein Albumin Urine Color Urine Appearance Urine pH Ur Specific [place] Urine Protein Urine Glucose (UA) Urine Ketones Ur Blood (Man) Urine Nitrate Urine Bilirubin Urine Urobilinogen Leukocyte Esterase Rfl Urine RBC Urine WBC Ur Squamous Epith Cells Urine Bacteria Urine Casts Quality VTE Prophylaxis VTE prophylaxis: pharmacologic ordered (on apixaban)
[2024-05-26 11:33] LABS: Glucose Point of Care 255 mg/dl (65-105)
[2024-05-26 17:01] LABS: Glucose Point of Care 204 mg/dl (65-105)
[2024-05-26] MEDS: PREGABALIN (*CRX) 50 MG CAPSULE 100 MG PO (20:02)
[2024-05-26] MEDS: MEMANTINE HCL XR 28 MG CAP PO (20:02)
[2024-05-26] MEDS: DONEPEZIL HCL 10 MG TABLET PO (20:03)
[2024-05-26 20:26] LABS: Glucose Point of Care 224 mg/dl (65-105)
--- NOTE | 2024-05-27 01:50 | PC.NURSE ---
Daylight Savings Time For Daylight Savings Time Ending in the Fall - Clocks are moved back. For Daylight Savings Time Beginning in the Spring - Clocks are moved ahead. For [facility], the time of change occurs at 0200 hrs. Time is taken from the data entry manager. This entry on the patient's chart recognizes the change in time reflected during documentation. Example: 2 entries for vital signs may be charted for 0200 hrs.
[2024-05-27 04:43] VITALS: BP 148/74; PULSE 74; RESP 18; TEMP 36.8; O2SAT 94
[2024-05-27 08:07] LABS: Glucose Point of Care 204 mg/dl (65-105)
--- NOTE | 2024-05-27 09:12 | P.PNIM_ITS ---
Progress Note: A&P Assessment and Plan (1) RAMAN (generalized anxiety disorder): Code(s): F41.1 - Generalized anxiety disorder Status: Chronic (2) Type 2 diabetes mellitus with hyperglycemia, with long-term current use of insulin: Code(s): E11.65 - Type 2 diabetes mellitus with hyperglycemia; Z79.4 - intermission coordinator (current) use of insulin Status: Acute (3) HTN (hypertension), benign: Code(s): I10 - Essential (primary) hypertension Status: Chronic Plan (1) Urinary tract infection: Code(s): N39.0 - Urinary tract infection, site not specified Status: Acute Assessment and Plan: * UA showed turbid urine appearance, 2+ urine protein, 2+ urine blood, positive urine nitrate, 3+ leukocyte, 11-20 urine RBC, greater than 100 urine WBC, 4+ urine bacteria * on Rocephin * reviewed past urine cultures which showed E coli and Klebsiella pneumoniae which was sensitive to Rocephin in the past * history of urinary tract infections likely due to her chronic Vigil, none of which turned out to be ESBL Urine culture showed: Mixed genital los isolated. These superficial bacteria are not indicative of a urinary tract infection. No further organism identification is warranted on this specimen. Bladder spasm: Code(s): N32.89 - Other specified disorders of bladder Status: Acute Assessment and Plan: * continue Ditropan Abnormal computed tomography of kidney: Code(s): R93.429 - Abnormal radiologic findings on diagnostic imaging of unspecified kidney Status: Acute Assessment and Plan: * abdomen/pelvis CT shown fat infiltration of the liver, hepatomegaly, soft tissue density adjacent to the left kidney lower pole Renal ultrasound showed: Multiple left kidney cysts. Other appearances are unremarkable. Soft tissue density seen on CT is not well demonstrated. * Chronic indwelling Vigil catheter: Code(s): Z97.8 - Presence of other specified devices Status: Acute Assessment and Plan: * exchanged while in the ED with 450 mL draining initially (5) Benign essential hypertension: Code(s): I10 - Essential (primary) hypertension Status: Acute Assessment and Plan: * blood pressure ranging 148/79 to 158/78 * continue metoprolol Insulin dependent type 2 diabetes mellitus: Code(s): E11.9 - Type 2 diabetes mellitus without complications; Z79.4 - intermission coordinator (current) use of insulin Status: Acute Assessment and Plan: * Blood sugars ranging to 06/09/2054 * Hgb A1C 10.4 on 04/27/2024 * Accu checks AC/HS * high-dose SSI ordered * insulin aspart 5 units subq t.i.d. with meals * Hold dulaglutide * hypoglycemic protocol in place * Diabetic diet ordered Stage 3b chronic kidney disease: Code(s): N18.32 - Chronic kidney disease, stage 3b Status: Chronic Assessment and Plan: * creatinine 1.68, EGFR 30 * appears to be at baseline Subjective Date/time seen: 05/27/24 09:12 Interval history: I saw examined patient today, patient feels better today, patient has general weakness, Exam Narrative: General: In no acute distress, well nourished Head: atraumatic, no encephalopathy Eyes:PERRLA, sclera clear ENT: moist mucous membranes, nasal passages clear Neck: supple, no JVD, no adenopathy, trachea midline Cardiac: Normal S1 and S2. No murmur, gallops or friction rubs, peripheral pulses intact. Respiratory: Lungs clear to auscultation, no adventitious lung sounds Gastrointestinal: soft, non-distended, non-tender, normoactive bowel sounds. : voiding without difficulty. Extremities: moves all extremities well, no edema Skin: clean, dry, intact. No wounds or lesions. Neuro: Alert and oriented x4, cranial nerves intact, no neuro deficits. Psych: normal mood, normal affect, interactive Objective Data Vital Signs Vital Signs: Vital Signs - 24 hr 05/26/24 08:20 05/26/24 08:24 05/26/24 14:26 Temperature 97.6 F 99.0 F Pulse Rate 96 98 76 Respiratory Rate 16 16 Blood Pressure 149/60 H 133/57 L Pulse Oximetry 94 95 Oxygen Delivery 05/26/24 19:40 05/26/24 20:00 05/26/24 20:02 Temperature 97.7 F Pulse Rate 76 80 Respiratory Rate 18 Blood Pressure 153/55 H Pulse Oximetry 93 Oxygen Delivery Room Air 05/27/24 04:43 Temperature 98.3 F Pulse Rate 74 Respiratory Rate 18 Blood Pressure 148/74 H Pulse Oximetry 94 Oxygen Delivery Intake/Output Intake/Output: Intake & Output 03/06/25 03/07/25 03/08/25 03/10/25 23:59 23:59 23:59 00:59 Intake Total 1300 150 Output Total 450 1400 350 Balance -450 -100 -200 Meds/Results Medications: Active Medications Generic Name Dose Route Start Last Admin Trade Name Freq PRN Reason Stop Dose Admin Acetaminophen 650 mg 05/26/24 01:58 Acetaminophen 325 Mg Tablet PO Q4H PRN Mild Pain (1-3) or Fever Hydrocodone Bitart/Acetaminophen 1 tab 05/26/24 01:58 05/26/24 03:22 Hydrocodone/Acetaminophen (*Crx) 5-325 Mg Tablet PO 1 tab Q4H PRN Administration Pain Rated 4-6 Apixaban 2.5 mg 05/26/24 09:00 05/26/24 20:03 Apixaban 2.5 Mg Tablet PO 2.5 mg Q12HR EMMIE Administration Aspirin 81 mg 05/26/24 09:00 05/26/24 17:52 Aspirin 81 Mg Enteric Tablet PO 81 mg BID EMMIE Administration Atorvastatin Calcium 10 mg 05/26/24 09:00 05/26/24 08:24 Atorvastatin 10 Mg Tablet PO 10 mg DAILY EMMIE Administration Benztropine Mesylate 0.5 mg 05/26/24 09:00 05/26/24 17:52 Benztropine Mesylate 0.5 Mg Tablet BY MOUTH 0.5 mg TID EMMIE Administration Clonidine HCl 0.1 mg 05/26/24 09:00 05/26/24 17:52 Clonidine Hcl 0.1 Mg Tablet PO 0.1 mg BID EMMIE Administration Clotrimazole 1 applic 05/26/24 09:00 05/26/24 17:58 Betamethasone/Clotrimazole Cream 15 Gm Tube TOPICAL 1 applic BID EMMIE Administration Dextrose 12.5 gm 05/26/24 03:40 Dextrose 50% 25 Gm/50 Ml Syringe IV PUSH PRN PRN Hypoglycemia Protocol Donepezil HCl 10 mg 05/26/24 21:00 05/26/24 20:03 Donepezil Hcl 10 Mg Tablet PO 10 mg HS EMMIE Administration Duloxetine HCl 30 mg 05/26/24 09:00 05/26/24 17:52 Duloxetine Hcl 30 Mg Capsule.Dr PO 30 mg BID EMMIE Administration Ergocalciferol 50,000 units 06/01/24 09:00 Ergocalciferol 50,000 Units Capsule PO Fr@0900 EMMIE Ferrous Sulfate 325 mg 05/26/24 09:00 05/26/24 17:52 Ferrous Sulfate [address] BY MOUTH 325 mg BID EMMIE Administration Furosemide 40 mg 05/26/24 09:00 05/26/24 08:24 Furosemide 40 Mg Tablet BY MOUTH 40 mg DAILY EMMIE Administration Glucagon 1 mg 05/26/24 03:40 Glucagon For Inj 1 Mg Vial IM PRN PRN Hypoglycemia Protocol Glucose 15 gm 05/26/24 03:40 Glucose Oral Gel 15 Gm Of Glucse In 37.5 Gm Tube PO PRN PRN Hypoglycemia Protocol Guaifenesin 1,200 mg 05/26/24 09:00 05/26/24 20:02 Guaifenesin 12 Hr 600 Mg Tabcr PO 1,200 mg Q12HR EMMIE Administration Ceftriaxone Sodium 1 gm in 50 mls @ 100 mls/hr 05/27/24 03:00 05/27/24 03:07 Rocephin 1 Gm/Ns 50 Ml IVPB 100 mls/hr Q24H EMMIE Administration Dextrose 1,000 mls @ 100 mls/hr 05/26/24 03:40 Dextrose 5% 1,000 Ml IVPB PRN PRN Hypoglycemia Protocol Insulin Aspart 4 - 8 units 05/26/24 08:00 05/26/24 17:53 Insulin Aspart (*Bkc) 100 Units/Ml SUB-Q 4 units TIDWM EMMIE Administration Protocol Insulin Aspart 2 - 4 units 05/26/24 21:00 05/26/24 20:05 Insulin Aspart (*Bkc) 100 Units/Ml SUB-Q 2 units HS EMMIE Administration Protocol Insulin Aspart 5 units 05/26/24 08:00 05/26/24 17:53 Insulin Aspart (*Bkc) 100 Units/Ml SUB-Q 5 units TIDWM EMMIE Administration Insulin Glargine 40 units 05/26/24 21:00 05/26/24 20:06 Insulin Glargine (*Bkc) 100 Units/Ml SUB-Q 40 units Q12HR EMMIE Administration Lactobacillus Acidophilus 1 tablet 05/26/24 09:00 05/26/24 08:24 Acidophilus/Bulgaricus Chewable Tablet BY MOUTH 1 tablet DAILY EMMIE Administration Lactulose 15 gm 05/26/24 05:56 Lactulose 20 Gm/30 Ml Udc PO BID PRN Constipation Memantine 28 mg 05/26/24 21:00 05/26/24 20:02 Memantine Hcl Xr 28 Mg Cap PO 28 mg HS EMMIE Administration Metoprolol Tartrate 50 mg 05/26/24 09:00 05/26/24 20:02 Metoprolol Tartrate 50 Mg Tab PO 50 mg Q12HR EMMIE Administration Multivitamins/Minerals 1 tab 05/26/24 09:00 05/26/24 08:24 Multivitamins /C Lutein (Centrum Silver) Tablet *Bkc PO 1 tab DAILY EMMIE Administration Ondansetron HCl 4 mg 05/26/24 01:58 Ondansetron Inj 4 Mg/2 Ml Vial IV PUSH Q4H PRN Nausea Oxybutynin Chloride 5 mg 05/26/24 03:41 Oxybutynin Chloride Xl 5 Mg Tab.Er.24 PO DAILY PRN bladder spasms Pregabalin 100 mg 05/26/24 21:00 05/26/24 20:02 Pregabalin (*Crx) 50 Mg Capsule PO 100 mg HS EMMIE Administration Quetiapine Fumarate 50 mg 05/26/24 09:00 05/26/24 17:52 Quetiapine Fumarate 25 Mg Tablet PO 50 mg BID EMMIE Administration Tramadol HCl 50 mg 05/26/24 10:47 Tramadol Hcl (*Crx) 50 Mg Tablet PO BID PRN pain Radiology Results: ITS Impressions Abdomen/Pelvis CT 05/25/24 22:31 IMPRESSION: No evidence of appendicitis, diverticulitis or intestinal obstruction. Fat infiltration of the liver. Hepatomegaly. Soft tissue density adjacent to the left kidney lower pole. Ultrasound evaluation advised. Distended gallbladder with no definite stones. Renal Ultrasound 05/26/24 19:13 IMPRESSION: Multiple left kidney cysts. Other appearances are unremarkable. Soft tissue density seen on CT is not well demonstrated. Labs Labs: Laboratory Results - last 24 hr 05/26/24 05/26/24 05/26/24 11:25 16:52 19:37 POC Capillary Glucose 255 H 204 H 224 H 05/27/24 08:04 POC Capillary Glucose 204 H
[2024-05-27 09:17] VITALS: PULSE 88
[2024-05-27] MEDS: ASPIRIN 81 MG ENTERIC TABLET PO ×2 (09:17→18:05)
[2024-05-27] MEDS: QUEtiapine FUMARATE 25 MG TABLET 50 MG PO ×2 (09:17→18:05)
[2024-05-27] MEDS: FERROUS SULFATE 325 MG TABLET DR BY MOUTH ×2 (09:17→18:06)
[2024-05-27] MEDS: ATORVASTATIN 10 MG TABLET PO (09:17)
[2024-05-27] MEDS: FUROSEMIDE 40 MG TABLET BY MOUTH (09:17)
[2024-05-27] MEDS: METOPROLOL TARTRATE 50 MG TAB PO ×2 (09:17→20:45)
[2024-05-27] MEDS: ACIDOPHILUS/BULGARICUS CHEWABLE TABLET 1 TABLET BY MOUTH (09:18)
[2024-05-27] MEDS: BENZTROPINE MESYLATE 0.5 MG TABLET BY MOUTH ×3 (09:18→18:06)
[2024-05-27] MEDS: MULTIVITAMINS /C LUTEIN (CENTRUM SILVER) TABLET *BKC 1 TAB PO (09:18)
[2024-05-27] MEDS: DULoxetine HCL 30 MG CAPSULE.DR PO ×2 (09:18→18:06)
[2024-05-27] MEDS: guaiFENesin 12 HR 600 MG TABCR 1200 MG PO ×2 (09:18→20:45)
[2024-05-27] MEDS: APIXABAN 2.5 MG TABLET PO ×2 (09:18→20:45)
[2024-05-27] MEDS: cloNIDine HCL 0.1 MG TABLET PO ×2 (09:18→18:07)
[2024-05-27] MEDS: INSULIN ASPART (*BKC) 100 UNITS/ML SUB-Q ×6 (09:19→20:45)
[2024-05-27] MEDS: INSULIN GLARGINE (*BKC) 100 UNITS/ML 40 UNITS SUB-Q ×2 (09:19→20:46)
[2024-05-27] MEDS: BETAMETHASONE/CLOTRIMAZOLE CREAM 15 GM TUBE 1 APPLIC TOPICAL ×2 (09:22→18:07)
[2024-05-27] MEDS: ACETAMINOPHEN 325 MG TABLET 650 MG PO ×2 (09:27→16:10)
[2024-05-27 11:56] LABS: Glucose Point of Care 289 mg/dl (65-105)
[2024-05-27 15:08] VITALS: BP 150/51; PULSE 73; RESP 18; TEMP 36.2; O2SAT 94
[2024-05-27 16:56] LABS: Glucose Point of Care 197 mg/dl (65-105)
[2024-05-27] MEDS: IBUPROFEN 400 MG TABLET PO (18:06)
[2024-05-27 19:46] VITALS: BP 162/79; PULSE 74; RESP 20; TEMP 36.6; O2SAT 94
[2024-05-27] MEDS: PREGABALIN (*CRX) 50 MG CAPSULE 100 MG PO (20:44)
[2024-05-27 20:45] VITALS: PULSE 74
[2024-05-27] MEDS: MEMANTINE HCL XR 28 MG CAP PO (20:45)
[2024-05-27] MEDS: DONEPEZIL HCL 10 MG TABLET PO (20:45)
[2024-05-27] MEDS: HYDROcodone/acetaminophen (*CRX) 5-325 MG TABLET 1 TAB PO (20:52)
[2024-05-27 21:03] LABS: Glucose Point of Care 205 mg/dl (65-105)
[2024-05-27] MEDS: TROLAMINE SALICYLATE 10% (*BKC) 113 GM CREAM 1 APPLIC TOPICAL (21:57)
[2024-05-28 05:40] VITALS: BP 150/76; PULSE 60; RESP 16; TEMP 36.8; O2SAT 97
[2024-05-28 08:30] LABS: Glucose Point of Care 182 mg/dl (65-105)
[2024-05-28 08:37] LABS: Eosinophils Absolute Auto 0.2 K/mm3 (0-0.3); Hematocrit 36.2 % (37.0-47.0); Hemoglobin 11.1 g/dL (12.0-15.0); Immature Granulocyte Absolute 0.03 K/mm3 (0.00-0.031); Immature Granulocyte Percent A 0.7 % (0-0.5); Lymphocytes Percent Auto 29.8 % (18.3-44.2); Mean Corpuscular HGB Conc 30.7 g/dl (32-36); Mean Corpuscular Hemoglobin 31.6 pg (26-34); Mean Corpuscular Volume 103.1 fl (80-100); Monocytes Absolute Auto 0.4 K/mm3 (0.1-0.6); Monocytes Percent Auto 9.7 % (2.6-8.5); Neutrophils Absolute Auto 2.2 K/mm3 (1.3-6.7); Neutrophils Percent Auto 53.8 % (45.5-73.1); Platelet Count Result 149 k/mm3 (150-375); Red Blood Count 3.51 M/mm3 (4.2-5.4); Red Cell Distribution Width 16.2 % (11.5-14.5)
[2024-05-28] MEDS: ATORVASTATIN 10 MG TABLET PO (08:42)
[2024-05-28] MEDS: ASPIRIN 81 MG ENTERIC TABLET PO (08:42)
[2024-05-28] MEDS: FERROUS SULFATE 325 MG TABLET DR BY MOUTH (08:42)
[2024-05-28] MEDS: guaiFENesin 12 HR 600 MG TABCR 1200 MG PO (08:42)
[2024-05-28] MEDS: cloNIDine HCL 0.1 MG TABLET PO (08:42)
[2024-05-28 08:43] VITALS: PULSE 60
[2024-05-28] MEDS: QUEtiapine FUMARATE 25 MG TABLET 50 MG PO (08:43)
[2024-05-28] MEDS: BENZTROPINE MESYLATE 0.5 MG TABLET BY MOUTH ×2 (08:43→12:10)
[2024-05-28] MEDS: ACIDOPHILUS/BULGARICUS CHEWABLE TABLET 1 TABLET BY MOUTH (08:43)
[2024-05-28] MEDS: APIXABAN 2.5 MG TABLET PO (08:43)
[2024-05-28] MEDS: METOPROLOL TARTRATE 50 MG TAB PO (08:43)
[2024-05-28] MEDS: MULTIVITAMINS /C LUTEIN (CENTRUM SILVER) TABLET *BKC 1 TAB PO (08:43)
[2024-05-28] MEDS: FUROSEMIDE 40 MG TABLET BY MOUTH (08:43)
[2024-05-28] MEDS: DULoxetine HCL 30 MG CAPSULE.DR PO (08:43)
[2024-05-28] MEDS: INSULIN GLARGINE (*BKC) 100 UNITS/ML 40 UNITS SUB-Q (08:44)
[2024-05-28] MEDS: INSULIN ASPART (*BKC) 100 UNITS/ML SUB-Q ×3 (08:44→12:09)
[2024-05-28 08:49] LABS: Alanine Aminotransferase 35 U/L (6-35); Albumin Level 3.7 g/dL (3.5-5.1); Alkaline Phosphatase 107 U/L (38-126); Anion Gap 6 mmol/L (4-12); Aspartate Amino Transferase 37 U/L (14-36); Bilirubin,Total 0.4 mg/dL (0.2-1.3); Blood Urea Nitrogen 44 mg/dL (7-17); Calcium 9.7 mg/dL (8.4-10.2); Carbon Dioxide 33 mmol/L (22-30); Chloride 101 mmol/L (98-107); Estimated CRCL calculation 40 ml/min; Estimated Glomerular Filt Rate 30; Glucose 179 mg/dL (65-110); Potassium 4.4 mmol/L (3.4-5.0); Sodium 140 mmol/L (137-145)
[2024-05-28] MEDS: BETAMETHASONE/CLOTRIMAZOLE CREAM 15 GM TUBE 1 APPLIC TOPICAL (08:53)
[2024-05-28] MEDS: TROLAMINE SALICYLATE 10% (*BKC) 113 GM CREAM 1 APPLIC TOPICAL ×2 (08:53→12:10)
--- NOTE | 2024-05-28 09:48 | P.PNIM_ITS ---
Progress Note: A&P Assessment and Plan (1) RAMAN (generalized anxiety disorder): Code(s): F41.1 - Generalized anxiety disorder Status: Chronic (2) Type 2 diabetes mellitus with hyperglycemia, with long-term current use of insulin: Code(s): E11.65 - Type 2 diabetes mellitus with hyperglycemia; Z79.4 - exterminator helper (current) use of insulin Status: Acute (3) HTN (hypertension), benign: Code(s): I10 - Essential (primary) hypertension Status: Chronic Plan (1) Urinary tract infection: Code(s): N39.0 - Urinary tract infection, site not specified Status: Acute Assessment and Plan: * UA showed turbid urine appearance, 2+ urine protein, 2+ urine blood, positive urine nitrate, 3+ leukocyte, 11-20 urine RBC, greater than 100 urine WBC, 4+ urine bacteria * on Rocephin * reviewed past urine cultures which showed E coli and Klebsiella pneumoniae which was sensitive to Rocephin in the past * history of urinary tract infections likely due to her chronic Vigil, none of which turned out to be ESBL Urine culture showed: Mixed genital los isolated. These superficial bacteria are not indicative of a urinary tract infection. No further organism identification is warranted on this specimen. Bladder spasm: Code(s): N32.89 - Other specified disorders of bladder Status: Acute Assessment and Plan: Patient denies abdomen pain, continue Ditropan Abnormal computed tomography of kidney: Code(s): R93.429 - Abnormal radiologic findings on diagnostic imaging of unspecified kidney Status: Acute Assessment and Plan: abdomen/pelvis CT shown fat infiltration of the liver, hepatomegaly, soft tissue density adjacent to the left kidney lower pole Renal ultrasound showed: Multiple left kidney cysts. Other appearances are unremarkable. Soft tissue density seen on CT is not well demonstrated. Chronic indwelling Vigil catheter: Code(s): Z97.8 - Presence of other specified devices Status: Acute Assessment and Plan: exchanged while in the ED with 450 mL draining initially (5) Benign essential hypertension: Code(s): I10 - Essential (primary) hypertension Status: Acute Assessment and Plan: * blood pressure ranging 148/79 to 158/78 * continue metoprolol Insulin dependent type 2 diabetes mellitus: Code(s): E11.9 - Type 2 diabetes mellitus without complications; Z79.4 - exterminator helper (current) use of insulin Status: Acute Assessment and Plan: * Blood sugars ranging to 06/09/2054 * Hgb A1C 10.4 on 04/27/2024 * Accu checks AC/HS * high-dose SSI ordered * insulin aspart 5 units subq t.i.d. with meals * Hold dulaglutide * hypoglycemic protocol in place * Diabetic diet ordered Stage 3b chronic kidney disease: Code(s): N18.32 - Chronic kidney disease, stage 3b Status: Chronic Assessment and Plan: creatinine 1.68, EGFR 30 appears to be at baseline Subjective Date/time seen: 05/28/24 09:48 Interval history: I saw examined patient today, patient feels comfortable, denies headache, chest pain, abdomen pain, nausea vomiting, diarrhea, or suprapubic pain. Afebrile blood pressure stable Exam Narrative: GENERAL: Pleasant, in no acute distress. Well-nourished. - EYES: EOMI. Anicteric. - HENT: Moist mucous membranes. - LUNGS: Clear to auscultation bilateral ly, no wheezing, rhonchi, or rales. - CARDIOVASCULAR: Regular rate and rhyth m. No murmur. No JVD. - ABDOMEN: Soft, non-tender and non-dist ended. No palpable masses. Vigil catheter in-situ, clear urine drained out - EXTREMITIES: No edema. Peripheral puls es 2+. Non-tender. - NEUROLOGIC: No focal neurological defi cits. CN II-XII grossly intact. - PSYCHIATRIC: Awake, Alert and oriented x 3. Appropriate mood and affect. - SKIN: No rashes or lesions. Warm. - LYMPH: No cervical lymphadenopathy. Objective Data Vital Signs Vital Signs: Vital Signs - 24 hr 05/27/24 15:08 05/27/24 19:46 05/27/24 20:45 Temperature 97.2 F L 98 F Pulse Rate 73 74 74 Respiratory Rate 18 20 Blood Pressure 150/51 H 162/79 H Pulse Oximetry 94 94 05/28/24 05:40 05/28/24 08:43 Temperature 98.2 F Pulse Rate 60 60 Respiratory Rate 16 Blood Pressure 150/76 H Pulse Oximetry 97 Intake/Output Intake/Output: Intake & Output 05/25/24 05/26/24 05/28/24 05/28/24 23:59 23:59 00:59 23:59 Intake Total 1300 780 200 Output Total 450 1400 1050 450 Balance -450 -100 -270 -250 Meds/Results Medications: Active Medications Generic Name Dose Route Start Last Admin Trade Name Gustavo PRN Reason Stop Dose Admin Acetaminophen 650 mg 05/26/24 01:58 05/27/24 16:10 Acetaminophen 325 Mg Tablet PO 650 mg Q4H PRN Administration Mild Pain (1-3) or Fever Hydrocodone Bitart/Acetaminophen 1 tab 05/26/24 01:58 05/27/24 20:52 Hydrocodone/Acetaminophen (*Crx) 5-325 Mg Tablet PO 1 tab Q4H PRN Administration Pain Rated 4-6 Apixaban 2.5 mg 05/26/24 09:00 05/28/24 08:43 Apixaban 2.5 Mg Tablet PO 2.5 mg Q12HR EMMIE Administration Aspirin 81 mg 05/26/24 09:00 05/28/24 08:42 Aspirin 81 Mg Enteric Tablet PO 81 mg BID EMMIE Administration Atorvastatin Calcium 10 mg 05/26/24 09:00 05/28/24 08:42 Atorvastatin 10 Mg Tablet PO 10 mg DAILY EMMIE Administration Benztropine Mesylate 0.5 mg 05/26/24 09:00 05/28/24 08:43 Benztropine Mesylate 0.5 Mg Tablet BY MOUTH 0.5 mg TID EMMIE Administration Clonidine HCl 0.1 mg 05/26/24 09:00 05/28/24 08:42 Clonidine Hcl 0.1 Mg Tablet PO 0.1 mg BID EMMIE Administration Clotrimazole 1 applic 05/26/24 09:00 05/28/24 08:53 Betamethasone/Clotrimazole Cream 15 Gm Tube TOPICAL 1 applic BID EMMIE Administration Dextrose 12.5 gm 05/26/24 03:40 Dextrose 50% 25 Gm/50 Ml Syringe IV PUSH PRN PRN Hypoglycemia Protocol Donepezil HCl 10 mg 05/26/24 21:00 05/27/24 20:45 Donepezil Hcl 10 Mg Tablet PO 10 mg HS EMMIE Administration Duloxetine HCl 30 mg 05/26/24 09:00 05/28/24 08:43 Duloxetine Hcl 30 Mg Capsule.Dr PO 30 mg BID EMMIE Administration Ergocalciferol 50,000 units 06/01/24 09:00 Ergocalciferol 50,000 Units Capsule PO Fr@0900 EMMIE Ferrous Sulfate 325 mg 05/26/24 09:00 05/28/24 08:42 Ferrous Sulfate [address] BY MOUTH 325 mg BID EMMIE Administration Furosemide 40 mg 05/26/24 09:00 05/28/24 08:43 Furosemide 40 Mg Tablet BY MOUTH 40 mg DAILY EMMIE Administration Glucagon 1 mg 05/26/24 03:40 Glucagon For Inj 1 Mg Vial IM PRN PRN Hypoglycemia Protocol Glucose 15 gm 05/26/24 03:40 Glucose Oral Gel 15 Gm Of Glucse In 37.5 Gm Tube PO PRN PRN Hypoglycemia Protocol Guaifenesin 1,200 mg 05/26/24 09:00 05/28/24 08:42 Guaifenesin 12 Hr 600 Mg Tabcr PO 1,200 mg Q12HR EMMIE Administration Ceftriaxone Sodium 1 gm in 50 mls @ 100 mls/hr 05/27/24 03:00 05/28/24 03:00 Rocephin 1 Gm/Ns 50 Ml IVPB 100 mls/hr Q24H EMMIE Administration Dextrose 1,000 mls @ 100 mls/hr 05/26/24 03:40 Dextrose 5% 1,000 Ml IVPB PRN PRN Hypoglycemia Protocol Insulin Aspart 4 - 8 units 05/26/24 08:00 05/28/24 08:43 Insulin Aspart (*Bkc) 100 Units/Ml SUB-Q Not Given TIDWM [facility] Protocol Insulin Aspart 2 - 4 units 05/26/24 21:00 05/27/24 20:45 Insulin Aspart (*Bkc) 100 Units/Ml SUB-Q 2 units HS EMMIE Administration Protocol Insulin Aspart 5 units 05/26/24 08:00 05/28/24 08:44 Insulin Aspart (*Bkc) 100 Units/Ml SUB-Q 5 units TIDWM EMMIE Administration Insulin Glargine 40 units 05/26/24 21:00 05/28/24 08:44 Insulin Glargine (*Bkc) 100 Units/Ml SUB-Q 40 units Q12HR EMMIE Administration Lactobacillus Acidophilus 1 tablet 05/26/24 09:00 05/28/24 08:43 Acidophilus/Bulgaricus Chewable Tablet BY MOUTH 1 tablet DAILY EMMIE Administration Lactulose 15 gm 05/26/24 05:56 Lactulose 20 Gm/30 Ml Udc PO BID PRN Constipation Memantine 28 mg 05/26/24 21:00 05/27/24 20:45 Memantine Hcl Xr 28 Mg Cap PO 28 mg HS EMMIE Administration Metoprolol Tartrate 50 mg 05/26/24 09:00 05/28/24 08:43 Metoprolol Tartrate 50 Mg Tab PO 50 mg Q12HR EMMIE Administration Multivitamins/Minerals 1 tab 05/26/24 09:00 05/28/24 08:43 Multivitamins /C Lutein (Centrum Silver) Tablet *Bkc PO 1 tab DAILY EMMIE Administration Ondansetron HCl 4 mg 05/26/24 01:58 Ondansetron Inj 4 Mg/2 Ml Vial IV PUSH Q4H PRN Nausea Oxybutynin Chloride 5 mg 05/26/24 03:41 Oxybutynin Chloride Xl 5 Mg Tab.Er.24 PO DAILY PRN bladder spasms Pregabalin 100 mg 05/26/24 21:00 05/27/24 20:44 Pregabalin (*Crx) 50 Mg Capsule PO 100 mg HS EMMIE Administration Quetiapine Fumarate 50 mg 05/26/24 09:00 05/28/24 08:43 Quetiapine Fumarate 25 Mg Tablet PO 50 mg BID MEMIE Administration Tramadol HCl 50 mg 05/26/24 10:47 Tramadol Hcl (*Crx) 50 Mg Tablet PO BID PRN pain Trolamine Salicylate 1 applic 05/27/24 21:00 05/28/24 08:53 Trolamine Salicylate 10% (*Bkc) 113 Gm Cream TOPICAL 1 applic QID EMMIE Administration Radiology Results: ITS Impressions Abdomen/Pelvis CT 05/25/24 22:31 IMPRESSION: No evidence of appendicitis, diverticulitis or intestinal obstruction. Fat infiltration of the liver. Hepatomegaly. Soft tissue density adjacent to the left kidney lower pole. Ultrasound evaluation advised. Distended gallbladder with no definite stones. Renal Ultrasound 05/26/24 19:13 IMPRESSION: Multiple left kidney cysts. Other appearances are unremarkable. Soft tissue density seen on CT is not well demonstrated. Labs Labs: Laboratory Results - last 24 hr 05/27/24 05/27/24 05/27/24 11:47 16:48 19:50 WBC RBC Hgb Hct MCV MCH MCHC RDW Plt Count MPV Immature Gran % (Auto) Neut % (Auto) Lymph % (Auto) [place] % (Auto) Eos % (Auto) Baso % (Auto) Lymph # (Auto) [place] # (Auto) Eos # (Auto) Baso # (Auto) Abs Immat Gran (auto) Absolute Neuts (auto) Absolute Nucleated RBC Nucleated RBC % Sodium Potassium Chloride Carbon Dioxide Anion Gap BUN Creatinine Estim Creat Clear Calc Estimated GFR Glucose POC Capillary Glucose 289 H 197 H 205 H Calcium Total Bilirubin AST ALT Alkaline Phosphatase Total Protein Albumin 05/28/24 05/28/24 08:04 08:16 WBC 4.0 L RBC 3.51 L Hgb 11.1 L Hct 36.2 L MCV 103.1 H MCH 31.6 MCHC 30.7 L RDW 16.2 H Plt Count 149 L MPV 11.0 H Immature Gran % (Auto) 0.7 H Neut % (Auto) 53.8 Lymph % (Auto) 29.8 [place] % (Auto) 9.7 H Eos % (Auto) 5.0 H Baso % (Auto) 1.0 Lymph # (Auto) 1.20 [place] # (Auto) 0.4 Eos # (Auto) 0.2 Baso # (Auto) 0.0 Abs Immat Gran (auto) 0.03 Absolute Neuts (auto) 2.2 Absolute Nucleated RBC 0.000 Nucleated RBC % 0.0 Sodium 140 Potassium 4.4 Chloride 101 Carbon Dioxide 33 H Anion Gap 6 BUN 44 H Creatinine 1.70 H Estim Creat Clear Calc 40 Estimated GFR 30 L Glucose 179 H POC Capillary Glucose 182 H Calcium 9.7 Total Bilirubin 0.4 AST 37 H ALT 35 Alkaline Phosphatase 107 Total Protein 7.0 Albumin 3.7
--- NOTE | 2024-05-28 11:13 | P.DS_ITS ---
DS: Admitting Diagnosis Discharge Date 05/28/24 Admitting Diagnosis (1) RAMAN (generalized anxiety disorder): Code(s): F41.1 - Generalized anxiety disorder Status: Chronic (2) Type 2 diabetes mellitus with hyperglycemia, with long-term current use of insulin: Code(s): E11.65 - Type 2 diabetes mellitus with hyperglycemia; Z79.4 - halfway (current) use of insulin Status: Acute (3) HTN (hypertension), benign: Code(s): I10 - Essential (primary) hypertension Status: Chronic DS: Discharge Diagnosis Discharge Diagnosis (1) RAMAN (generalized anxiety disorder): Code(s): F41.1 - Generalized anxiety disorder Status: Chronic (2) Type 2 diabetes mellitus with hyperglycemia, with long-term current use of insulin: Code(s): E11.65 - Type 2 diabetes mellitus with hyperglycemia; Z79.4 - intermediate card tender (current) use of insulin Status: Acute (3) HTN (hypertension), benign: Code(s): I10 - Essential (primary) hypertension Status: Chronic DS: Summary Hospital Course Hospital Course: This is a 69-year-old female with history of dementia with behavior disturbances, depression with psychosis, psychiatric placement with suicidal ideation, poorly controlled insulin-dependent type 2 diabetes mellitus, obstructive sleep apnea/obesity hypoventilation syndrome, pulmonary embolism on chronic anticoagulation, neurogenic bladder with chronic indwelling catheter, chronic pain syndrome with chronic opioid dependence, chronic benzodiazepine use, and other comorbidities who presented to the emergency department with complaints of bladder spasms. Her Vigil catheter was last exchanged on Tuesday and seemed to be working fine until yesterday afternoon when she noticed urine leaking from around the catheter. Not long thereafter she developed severe spasms in the bladder along with aching pain in the suprapubic region and low back. Home health nurses attempted to irrigate catheter without success and she was sent to the ED for evaluation. She denies fever, nausea, vomiting, and diarrhea. In the ED: Vital signs were stable on arrival. Labs were significant for WBC count of 9.8, BUN 47, creatinine 1.70 (baseline). Urine was turbid and showed 2+ protein, 2+ blood, positive nitrates, 3+ leukocyte esterase, 11 to 20 RBC, greater than 100 WBC and 4+ bacteria. CT of the abdomen pelvis showed a soft tis dimas density adjacent to the left kidney lower pole and other nonacute findings. Vigil catheter was exchanged in the ED and yielded 450 mL of urine almost immediately. She was given ceftriaxone 1 g and plans were for discharge home however the patient did not feel as though she could go home due to continued, severe bladder spasms and she is being admitted in this setting. The following med issues have been addressed during hospitalization Urinary tract infection: Code(s): N39.0 - Urinary tract infection, site not specified Status: Acute Assessment and Plan: * UA showed turbid urine appearance, 2+ urine protein, 2+ urine blood, positive urine nitrate, 3+ leukocyte, 11-20 urine RBC, greater than 100 urine WBC, 4+ urine bacteria * on Rocephin * reviewed past urine cultures which showed E coli and Klebsiella pneumoniae which was sensitive to Rocephin in the past * history of urinary tract infections likely due to her chronic Vigil, none of which turned out to be ESBL Urine culture showed: Mixed genital los isolated. These superficial bacteria are not indicative of a urinary tract infection. No further organism identification is warranted on this specimen. Will not prescribe antibiotics on discharge based on the urine culture Patient needs to change Vigil catheter each month, patient has a visiting nurse for replacing Vigil catheter Bladder spasm: Code(s): N32.89 - Other specified disorders of bladder Status: Acute Assessment and Plan: Patient denies abdomen pain, continue Ditropan Abnormal computed tomography of kidney: Code(s): R93.429 - Abnormal radiologic findings on diagnostic imaging of unspecified kidney Status: Acute Assessment and Plan: abdomen/pelvis CT shown fat infiltration of the liver, hepatomegaly, soft tissue density adjacent to the left kidney lower pole Renal ultrasound showed: Multiple left kidney cysts. Other appearances are unremarkable. Soft tissue density seen on CT is not well demonstrated. Kidney function stable Chronic indwelling Vigil catheter: Code(s): Z97.8 - Presence of other specified devices Status: Acute Assessment and Plan: exchanged while in the ED with 450 mL draining initially No obstruction currently Benign essential hypertension: Code(s): I10 - Essential (primary) hypertension Status: Acute Assessment and Plan: blood pressure ranging 148/79 to 158/78 continue metoprolol Insulin dependent type 2 diabetes mellitus: Code(s): E11.9 - Type 2 diabetes mellitus without complications; Z79.4 - halfway (current) use of insulin Status: Acute Assessment and Plan: * Blood sugars ranging to 06/09/2054 * Hgb A1C 10.4 on 04/27/2024 * Accu checks AC/HS * high-dose SSI ordered * insulin aspart 5 units subq t.i.d. with meals * Hold dulaglutide * hypoglycemic protocol in place * Diabetic diet ordered Resume home medication with Lantus, insulin sliding scale and oral medication for diabetes. Recommend patient compliant with medication Stage 3b chronic kidney disease: Code(s): N18.32 - Chronic kidney disease, stage 3b Status: Chronic Assessment and Plan: creatinine 1.68, EGFR 30 appears to be at baseline Time Spent with Patient Time attestation: Total time spent providing and/or coordinating discharge services: Exam Narrative: GENERAL: Pleasant, in no acute distress. Well-nourished. - EYES: EOMI. Anicteric. - HENT: Moist mucous membranes. - LUNGS: Clear to auscultation bilateral ly, no wheezing, rhonchi, or rales. - CARDIOVASCULAR: Regular rate and rhyth m. No murmur. No JVD. - ABDOMEN: Soft, non-tender and non-dist ended. No palpable masses. Vigil catheter in-situ, clear urine drained out - EXTREMITIES: No edema. Peripheral puls es 2+. Non-tender. - NEUROLOGIC: No focal neurological defi cits. CN II-XII grossly intact. - PSYCHIATRIC: Awake, Alert and oriented x 3. Appropriate mood and affect. - SKIN: No rashes or lesions. Warm. - LYMPH: No cervical lymphadenopathy. DS: Data Data Completed and Pending Labs on day of discharge: Labs from last 24 hours 05/28/24 05/28/24 05/27/24 08:16 08:04 19:50 WBC 4.0 L RBC 3.51 L Hgb 11.1 L Hct 36.2 L MCV 103.1 H MCH 31.6 MCHC 30.7 L RDW 16.2 H Plt Count 149 L MPV 11.0 H Immature Gran % (Auto) 0.7 H Neut % (Auto) 53.8 Lymph % (Auto) 29.8 [place] % (Auto) 9.7 H Eos % (Auto) 5.0 H Baso % (Auto) 1.0 Lymph # (Auto) 1.20 [place] # (Auto) 0.4 Eos # (Auto) 0.2 Baso # (Auto) 0.0 Abs Immat Gran (auto) 0.03 Absolute Neuts (auto) 2.2 Absolute Nucleated RBC 0.000 Nucleated RBC % 0.0 Sodium 140 Potassium 4.4 Chloride 101 Carbon Dioxide 33 H Anion Gap 6 BUN 44 H Creatinine 1.70 H Estim Creat Clear Calc 40 Estimated GFR 30 L Glucose 179 H POC Capillary Glucose 182 H 205 H Calcium 9.7 Total Bilirubin 0.4 AST 37 H ALT 35 Alkaline Phosphatase 107 Total Protein 7.0 Albumin 3.7 05/27/24 05/27/24 16:48 11:47 WBC RBC Hgb Hct MCV MCH MCHC RDW Plt Count MPV Immature Gran % (Auto) Neut % (Auto) Lymph % (Auto) [place] % (Auto) Eos % (Auto) Baso % (Auto) Lymph # (Auto) [place] # (Auto) Eos # (Auto) Baso # (Auto) Abs Immat Gran (auto) Absolute Neuts (auto) Absolute Nucleated RBC Nucleated RBC % Sodium Potassium Chloride Carbon Dioxide Anion Gap BUN Creatinine Estim Creat Clear Calc Estimated GFR Glucose POC Capillary Glucose 197 H 289 H Calcium Total Bilirubin AST ALT Alkaline Phosphatase Total Protein Albumin Discharge Plan Discharge Attending physician on discharge: Susan Aamdor Discharging Clinician: Susan Amador Anticipated Discharge Date/Time: 05/28/24 11:15 Patient Disposition: Home, Self-Care Activity: as tolerated Diet: as tolerated and diabetic Patient Instructions: Antibiotic Form Patient Language: German Stand Alone Forms: General Discharge Information Follow-up/Referrals: Javy Monsivais MD [Primary Care Provider] - (Patient needs to see primary care doctor in 1 week) Discharge Medications: Continued acetaminophen [Tylenol Extra Strength] 500 mg tablet 1,000 mg PO BID ferrous sulfate 325 mg (65 mg iron) tablet 325 mg PO BID nystatin 100,000 unit/gram cream 1 applic topical BID lactobacillus combination no.9 [Adult 50 Plus Probiotic] 1 cap PO DAILY furosemide 40 mg tablet See Rx Instructions .ROUTE .COMPLEX Qty: 90 0RF Dose Instruction: TAKE 1 TABLET BY MOUTH EVERY MORNING Rx Instructions: TAKE 1 TABLET BY MOUTH EVERY MORNING (DME) FreeStyle Mohan 3 Sensor Device See Rx Instructions .Route Qty: 1 0RF Rx Instructions: use for monitoring blood sugar (DME) FreeStyle Mohan 3 [place] Misc See Rx Instructions .Route Qty: 1 0RF Rx Instructions: use for monitoring glucose on insulin aspirin 81 mg tablet,delayed release (DR/EC) 81 mg PO BID insulin glargine [Basaglar KwikPen U-100 Insulin] 100 unit/mL (3 mL) insulin pen 40 unit subcut BID Qty: 15 2RF dulaglutide 4.5 mg/0.5 mL pen injector 4.5 mg subcut WEEKLY Qty: 2 5RF Rx Instructions: FRIDAYS clotrimazole-betamethasone 1-0.05 % Cream 1 applic TOPICAL BID Rx Instructions: APPLY TO BUTTOCKS Clear Fiber 3 gram/4 gram Powder 2 tsp PO TID PRN (Reason: Constipation) Namzaric 28-10 mg capsule,sprinkle,ER 24hr 1 cap PO HS oxybutynin chloride 5 mg tablet extended release 24hr 5 mg PO DAILY PRN (Reason: bladder spasms) guaifenesin [Mucus Relief ER] 600 mg Tablet Extended Release 12hr 1,200 mg PO Q12HR Qty: 14 0RF pregabalin 100 mg capsule 100 mg PO HS Qty: 30 0RF Adults Multivitamin 18 mg iron-400 mcg-25 mcg Tablet 1 tablet PO DAILY atorvastatin 10 mg tablet 10 mg PO DAILY cholecalciferol (vitamin D3) 1,250 mcg (50,000 unit) tablet 1,250 mcg PO WEEKLY Qty: 12 3RF Rx Instructions: every tuesday Eliquis 2.5 mg tablet 2.5 mg PO BID Qty: 60 3RF clonidine HCl 0.1 mg tablet 0.1 mg PO BID Qty: 180 0RF Rx Instructions: TAKE 1 TABLET BY MOUTH TWICE DAILY. MAY REPEAT EVERY 1 HOUR. NOT TO EXCEED 0.7 MG(7 TABLETS) PER 24 HOURS (DME) FreeStyle Mohan 3 Sensor Device See Rx Instructions .Route Qty: 1 5RF Rx Instructions: As directed (DME) FreeStyle Mohan 3 [place] Misc See Rx Instructions .Route Qty: 1 0RF Rx Instructions: As directed benztropine 0.5 mg tablet See Rx Instructions .ROUTE .COMPLEX Qty: 270 1RF Dose Instruction: TAKE 1 TABLET BY MOUTH THREE TIMES DAILY Rx Instructions: TAKE 1 TABLET BY MOUTH THREE TIMES DAILY tramadol 50 mg tablet 50 mg PO BID PRN (Reason: pain) Qty: 60 0RF lactulose 10 gram/15 mL solution 15 ml PO BID PRN (Reason: Constipation) Qty: 3785 0RF duloxetine 30 mg capsule,delayed release(DR/EC) 30 mg PO BID Qty: 60 2RF (DME) pen needle, diabetic [BD Ultra-Fine Short Pen Needle] 31 gauge x 5/16 needle See Rx Instructions .ROUTE .COMPLEX Qty: 400 2RF Dose Instruction: USE FIVE TIMES DAILY Rx Instructions: USE FIVE TIMES DAILY insulin lispro 100 unit/mL insulin pen See Rx Instructions .ROUTE .COMPLEX Qty: 15 2RF Dose Instruction: INJECT 5 UNITS UNDER THE SKIN PRE-MEAL WITH SLIDING SCALE. MAX TDD: 40 UNITS Rx Instructions: INJECT 5 UNITS UNDER THE SKIN PRE-MEAL WITH SLIDING SCALE. MAX TDD: 40 UNITS metoprolol tartrate 50 mg tablet 50 mg PO Q12H Qty: 60 5RF quetiapine 50 mg tablet 50 mg PO BID Qty: 60 5RF Date of admission: 05/27/24 16:20 Primary Care Provider: Javy Monsivais Admitting Provider: Chuck Orozco Attending physician on admission: Micki Slaughter Condition: Stable
[2024-05-28 12:01] LABS: Glucose Point of Care 231 mg/dl (65-105)
[2024-05-28 14:00] VITALS: BP 126/49; PULSE 74; RESP 24; TEMP 36.2; O2SAT 100
== END 2024-05-28 13:45 | disposition home or self-care (01) | DRG 700 ==
LOC: ANHED 05-26 02:01 → ANH2MED 05-26 02:23
PROVIDERS: Nurse Practitioner Acute Care; Physician Assistant; Registered Nurse; Admitting Provider Internal Medicine; Emergency Provider Emergency Medicine; PCP Family Medicine; Visit Provider Hospitalist
DX: N32.89 Other specified disorders of bladder (principal); T83.098A Other mechanical complication of other urinary catheter, initial encounter; N31.9 Neuromuscular dysfunction of bladder, unspecified; E78.2 Mixed hyperlipidemia; E11.65 Type 2 diabetes mellitus with hyperglycemia; E11.22 Type 2 diabetes mellitus with diabetic chronic kidney disease; E11.42 Type 2 diabetes mellitus with diabetic polyneuropathy; E03.9 Hypothyroidism, unspecified; F41.1 Generalized anxiety disorder; F32.A Depression, unspecified; G89.4 Chronic pain syndrome; I12.9 Hypertensive chronic kidney disease with stage 1 through stage 4 chronic kidney disease, or unspecified chronic kidney disease; N18.32 Chronic kidney disease, stage 3b; Z79.4 Long term (current) use of insulin; Z86.711 Personal history of pulmonary embolism; Z79.01 Long term (current) use of anticoagulants; Z79.891 Long term (current) use of opiate analgesic; Z99.89 Dependence on other enabling machines and devices
CPT/HCPCS: 36415; 74176; 76775; 80053; 81001; 82948; 83735; 85025; 85027; 87086; 96365; 96367; 96375; 97161; 99285; A9270; G0378; J0696; J1815; J2270; J3475

== ENCOUNTER 2024-06-25 10:18 | Outpatient (CLI) | payer MEDICARE, OTHER, SELFPAY ==
--- OUTSIDE RECORDS SUMMARY | 2024-06-25 11:43 | XMS_ITS | Referral Summary ---
Author Organization [facility] Address [facility] [place] [address] Care Team Providers Care Production Intern Name Role Phone Carol Staples MD Primary [...] (05/15/2021): Added automatically from request for surgery [id number] Closed displaced fracture of medial malleolus of right tibia 05/15/2021 Overview (05/25/2021): Added automatically from request for surgery [id number] Neurogenic bladder 04/17/2021 Overview (04/17/2021): Added automatically from request for surgery [id number] Assessment & Plan (09/03/2021 9:34 PM CDT): [...] week 09/07/2021 How often do you attend [facility] or anabaptism services? 1 to 4 times per year 09/07/2021 Do you belong to any clubs o r organizations such as methodist groups, unions, fraternal or athletic groups, or [...] on file Legal Sex Female 12:38 AM [employer] Gender Identity Not on file Sexual Orientation Not on file Last Filed Vital Signs Vital Sign Reading Time Taken Comments Blood Pressure 126/76 02/03/2023 8:58 AM [employer]ERSON[employer] Pulse 69 02/03/2023 8:58 AM [employer]ERSON[employer] Temperature 36.7 C (98.1 F) 02/03/2023 8:58 AM AP[employer]ERSON[employer]ERTY Respiratory Rate 18 01/14/2022 9:20 AM CDT Oxygen Saturation 95% 09/15/2021 6:34 AM CDT Inhaled Oxygen Concentration - - Weight 129.7 kg (286 lb) 02/03/2023 8:58 AM [employer]ERSON[employer] Height 175.3 cm (5' 9 ) 02/03/2023 8:58 AM AP[employer]AIS[employer] PERSONAL PROPERTY Body Mass Index 42.23 02/03/2023 8:58 AM AP[employer] PERSONAL PROPERTY Plan of Treatment Not on file Medical Devices Implanted Type Area Shipping & Receiving Lead Device Identifier Shelf Expiration Date Model / Serial / Lot [employer]Ort [id number] Evos [id number] 16.3x1.7mm 13 Hole Low Profile Variable Angle - S0 - [id number] Implanted:Qty: 1 on 05/16/2021 by Lori Carnes MD at [facility] Plate Right: Ankle [employer] Ortho [id number] 06/26/2028 [id number] / 0 / [id number] [employer]/Ort ho [id number] Evos 3.5mm 48mm Self Tap Cortex Screw Bone Sterile - S0 - [id number] Implanted:Qty: 1 on 05/16/2021 by Lori Carnes MD at [facility] Screw Right: Ankle [employer]/ Ortho [id number] / 0 / 0 [employer]/Ort ho [id number] Evos 3.5mm 50mm Self Tap Cortex Screw Bone Sterile - S0 - [id number] Implanted:Qty: 1 on 05/16/2021 by Lori Carnes MD at [facility] Screw Right: Ankle [employer]/ Ortho [id number] / 0 / 0 [employer]/Ort ho [id number] Evos Mini 2.7mm 4.5mm 12mm Self Tap Cortex T8 Screw Bone - S0 - [id number] Implanted:Qty: 1 on 05/16/2021 by Lori Carnes MD at [facility] Screw Right: Ankle [employer]/ Ortho [id number] / 0 / 0 [employer]/Ort ho [id number] Evos Mini 2.7mm 4.5mm 13mm Self Tap Cortex T8 Screw Bone - S0 - [id number] Implanted:Qty: 1 on 05/16/2021 by Lori Carnes MD at [facility] Screw Right: Ankle [employer]/ Ortho [id number] / 0 / 0 [employer]/Ort ho [id number] Evos Mini 2.7mm 4.5mm 15mm Self Tap Cortex T8 Screw Bone - S0 - [id number] Implanted:Qty: 3 on 05/16/2021 by Lori Carnes MD at [facility] Screw Right: Ankle [employer]/ Ortho [id number] / 0 / 0 [employer]/Ort ho [id number] Evos 3.5mm 12mm Self Tap Cortex Screw Bone Sterile - S0 - [id number] Implanted:Qty: 4 on 05/16/2021 by Lori Carnes MD at [facility] Screw Right: Ankle [employer]/ Ortho [id number] / 0 / 0 [employer]/Ort ho [id number] Evos 3.5mm 46mm Self Tap Cortex Screw Bone Sterile - S0 - [id number] Implanted:Qty: 1 on 05/16/2021 by Lori Carnes MD at [facility] Screw Right: Ankle [employer]/ Ortho [id number] / 0 / 0 Rt Shoulder Pin Right: Shoulder Lumbar Spine Fusion Instrumemtation Spine Lumbar [employer]/Ort ho [id number] Evos 3.5mm 75mm Self Tap Cortex Screw Bone Sterile - [id number] Implanted:Qty: 1 on 05/28/2021 by Randall Camp MD at [facility] Right: Ankle [employer]/ Ortho [id number] / / Explanted Type Area Shipping & Receiving Lead Device Identifier Shelf Expiration Date Model / Serial / Lot [employer]/O rtho [id number] Evos 2mm 14mm Provisional Pin Fixation Sterile - S0 - [id number] Explanted:Qty: 1 on 05/16/2021 at [facility] Pin Right: Ankle [employer]/Or tho [id number] / 0 / 0 Description:Temporary Placem ent; Provisional Fixation, only [employer]/O rtho [id number] Pin 25mm 2.5mm Fixation Evos Provisional Sterile - S0 - [id number] Explanted:Qty: 1 on 05/16/2021 at [facility] Pin Right: Ankle [employer]/Or tho [id number] / 0 / 0 Description:Temporary Placem ent; Provisional Fixation, only [employer]/O rtho [id number] Evos 3.5mm 15mm Self Tap Cortex Screw Bone Sterile - S0 - [id number] Explanted:Qty: 1 on 05/16/2021 at [facility] Screw Right: Ankle [employer]/Or tho [id number] / 0 / 0 Procedures Procedure Name Priority Date/Time Associated Diagnosis Comments EGFR Routine 09/11/2021 3:21 AM CDT HEMOGLOBIN A1C Routine 09/04/2021 4:18 AM CDT LIPID PANEL STAT 05/15/2021 1:38 PM AP[employer]ERSONAL PROPERTY from Last 3 Months or Most Recently [...] was last reviewed 2021. Testing performed by: [facility], [address] [place] [address], [place]., [address] Blood 09/11/2021 3:21 AM CDT 09/11/2021 5:45 AM CDT Dipti López MD LAB BLOOD ORDERABLES Final Res ult Performing Organization Address [facility] Co de Phone Number [facility] [address] [place] [address] * (ABNORMAL) Hemoglobin A1c (09/04/2021 4:18 AM CDT) Hgb A1C 6.4(H) 4.0 - 5.6 % [facility] Comment:Testing performed by : [address] [address] Estimated Average Glucose 137 mg/dL [facility] Comment: The ADA recommends reporting an estimated Average Glucose (eAG) with all Hemoglobin A1c results using the equation derived from a study of 507 normal and diabetic adults. Minority populations were underrepresented and children were not included. (Diabetes Care 31:2831-0512, 2008). The eAG is not equivalent to a fasting glucose. Testing performed by: [address] [address] Blood 09/04/2021 4:18 AM CDT 09/04/2021 5:27 AM CDT Adeline Bo DO LAB BLOOD ORDERABLES Final Re sult Performing Organization Address [facility] Co de Phone Number [facility] [address] [place] [address] * (ABNORMAL) Lipid panel (05/15/2021 1:38 PM APPRAISER PERSONAL PROPERTY) Cholesterol 155 30 - 199 mg/dL [facility] [...] revised on 2017. Triglycerides 372(H) <=149 mg/dL [facility] Comment: Interpretive Data Ages < [...] revised on 2017. HDL 29(L) >=40 mg/dL [facility] Comment: Interpretive Data Ages < [...] on 2017. LDL, calculated 52 <=129 mg/dL [facility] Comment: Interpretive Data Ages < [...] revised on 2017. Non-HDL Cholesterol 126 mg/dL [facility] Comment: Interpretive Data Ages < [...] 5 [facility] Blood 05/15/2021 1:38 PM [employer]AISER PERSONAL PROPERTY 05/15/2021 1:48 PM APPRAISER PERSONAL PROPERTY us Radha Lara MD LAB BLOOD ORDERABLES Raisa l Result [facility] [facility] Department [place] [address] from Last 3 Months or Most Recently Relevant to Health Maintenance Insurance [facility] MEDICARE [facility] [place] [address] T MEDICARE [facility] [place] [address] [facility] MEDICARE Advance Directives For more information, please contact: [phone] * Full Code (Latest Code Status on File) Date Activated Date Inactivated Comments 05/15/2021 10:09 PM 06/03/2021 10:44 PM Care Teams Production Intern Relationship Specialty Start Date End Date Carol Staples MD [address] [place], [place] [id number] PCP - General Family Medicine 07/18/20
--- OUTSIDE RECORDS SUMMARY | 2024-06-25 11:43 | XMS_ITS ---
Author Name Jacob Castro Address [address] [place] [address] Phone [phone] Organization [employer] [facility] Address [address] [place] [address] Phone [phone] Care Team Providers Care Turn Sewer Name Role Phone ColleenbrunildaJacob Unavailable [phone] Curtis Jaramillo Unavailable Functional Status No Results Mental Status No Results Allergies and Intolerances Name Onset Date Reaction Severity linezolid (Allergy) TueJun 03 15:11:00 EDT 2021 duloxetine (Allergy) TueJun 03 15:11:00 EDT 202 2 vancomycin (Allergy) TueJun 03 15:11:00 EDT 2 divalproex sodium (Allergy) TueJun 03 15:11:00 EDT 2021 Medications Medication Directions Start Date End Date QUEtiapine 200 mg tablet 1 TAB TABLET Or al 2 Times Daily DX Schizoaffective Disorder TueJun 18 09:35:00 EDT 2021Jun 23 01:00:00 EDT 2021 ondansetron 4 mg disintegrating tablet 4mg TABLET,DISINTEGRATING Oral PRN Every 6 Hours Nausea/Vomiting TueJun 18 15:00:00 EDT 2021Jun 23 01:00:00 EDT 2021 cloNIDine HCL 0.1 mg tablet 0.1mg TABLET Oral 3 Times Daily HTN TueJun 18 15:00:00 EDT 2021Jun 23 01:00:00 ED2021 lisinopriL 20 mg tablet 1 tab TABLET Ora l 1 Time Daily TueJun 18 09:00:00 EDT 2021Jun 23 01:00:00 EDT 2021 clotrimazole-betamethasone 1 %-0.05 % topical cream 1 application CREAM (GRAM) Topical 2 Times Daily Apply cream to buttocks BID for fungal rash TueJun 11 16:00:00 2021Jun 23 01:00:00 2021 memantine 10 mg tablet 1 tablet TABLET O ral Hour Of Sleep TueJun 11 01:00:00 2021Jun 23 01:00:00 2021 donepeziL 10 mg tablet 1 tablet TABLET O ral Hour Of Sleep TueJun 11 01:00:00 2021Jun 23 01:00:00 2021 Jardiance 25 mg tablet 1 tablet TABLET O ral 1 Time Daily TueJun 10 14:30:00 2021Jun 23 01:00:00 2021 Eliquis 2.5 mg tablet 1 tablet TABLET Or al 2 Times Daily for 11 Days TueJun 11 01:30:00 2021Jun 22 01:29:00 2021 Eliquis 2.5 mg tablet 1 tablet TABLET Or al 1 Time Daily TueJun 22 01:00:00 2021Jun 23 01:00:00 2021 Milk of Magnesia 400 mg/5 mL oral suspension 30mL SUSPENSION, ORAL (FINAL DOSE FORM) Oral PRN Every 6 Hours Constipationl TueJun 09 16:00:00 2021Jun 23 01:00:00 2021 Dulcolax (bisacodyl) 10 mg rectal suppository 10mg SUPPOSITORY, RECTAL Rectal PRN 1 Time Daily Constipation TueJun 09 16:00:00 2021Jun 23 01:00:00 2021 ClearLax 17 gram/dose oral powder 17 grams POWDER (GRAM) Oral 2 Times Daily Constipation TueJun 09 16:00:00 2021Jun 23 01:00:00 2021 docusate sodium 100 mg capsule 100mg CAPSULE Oral 2 Times Daily Constipation TueJun 09 16:00:00 2021Jun 23 01:00:00 2021 nystatin 100,000 unit/gram topical powder as directed POWDER (GRAM) Topical 2 Times Daily nystatin poweder to bilateral buttocks bid and prn until healed TueJun 08 15:30:00 2021Jun 11 16:40:00 EDT 2021 acetaminophen 500 mg capsule 2 CAPS CAPSULE Oral PRN Every 6 Hours 2 [id number] *DO NOT EXCEED 3GM/DAY APAP FROM ALL SOURCES*DX PAIN TueJun 03 15:00:00 ED2021Jun 23 01:00:00 2021 TUBErsoL 5 tub. unit/0.1 mL intradermal injection solution 0.1 ml VIAL (ML) Intradermal 1 Time Weekly for 2 Weeks TueJun 03 19:00:00 2021Jun 17 18:59:00 2021 TUBErsoL 5 tub. unit/0.1 mL intradermal injection solution Read Results VIAL (ML) Other 1 Time Weekly for 2 Weeks Read results between 48-72 hours after 1st and 2nd (1 week apart).. TueJun 03 17:00:00 2021Jun 17 16:59:00 2021 amLODIPine 2.5 mg tablet 1 TAB TABLET Or al 1 Time Daily DX HYPERTENSION TueJun 03 15:00:00 2021Jun 23 01:00:00 2021 aspirin 81 mg tablet,delayed release 1 TAB TABLET, DELAYED RELEASE (ENTERIC COATED) Oral 2 Times Daily DX STROKE / CLOT PREVENTION TueJun 03 15:00:00 2021Jun 23 01:00:00 2021 atorvastatin 10 mg tablet 1 TAB TABLET O ral 1 Time Daily EVERY MORNINGDX HIGH CHOLESTEROL TueJun 03 15:00:00 2021Jun 23 01:00:00 2021 benztropine 0.5 mg tablet 1 TAB TABLET O ral 3 Times Daily DX PARKINSON'S TueJun 03 15:00:00 2021Jun 23 01:00:00 2021 cyclobenzaprine 5 mg tablet 1 TAB TABLET Oral PRN 3 Times Daily DX MUSCLE SPASMS TueJun 03 15:00:00 2021Jun 23 01:00:00 2021 ergocalciferol (vitamin D2) 1,250 mcg (50,000 unit) capsule 1 CAP CAPSULE Oral 1 Time Weekly ON SUNDAYSDX SUPPLEMENT Sun Jun 07 01:00:00 ED2021Jun 23 01:00:00 2021 Farxiga 10 mg tablet 1 TAB TABLET Oral 1 Time Daily DX DMII TueJun 03 15:00:00 2021Jun 10 14:24:00 2021 ferrous sulfate 324 mg (65 mg iron) tablet,delayed release 1 TAB TABLET, DELAYED RELEASE (ENTERIC COATED) Oral 1 Time Daily DX ANEMIA TueJun 03 15:00:00 2021Jun 23 01:00:00 2021 NovoLOG Flexpen U-100 Insulin aspart 100 unit/mL (3 mL) subcutaneous 5 UNITS INSULIN PEN (ML) Subcutaneous 3 Times Daily DX DMII TueJun 03 15:00:00 2021Jun 23 01:00:00 2021 lactulose 10 gram/15 mL (15 mL) oral solution 15-30ML SOLUTION, ORAL Oral 3 Times Daily DX CONSTIPATION TueJun 03 15:00:00 2021Jun 23 01:00:00 2021 Levemir FlexTouch U-100 Insulin 100 unit/mL (3 mL) subcutaneous pen 45 UNITS INSULIN PEN (ML) Subcutaneous 2 Times Daily DX DMII TueJun 03 15:00:00 2021Jun 23 01:00:00 2021 levothyroxine 25 mcg tablet 1 TAB TABLET Oral 1 Time Daily DX HYPOTHYROIDISM TueJun 03 15:00:00 2021Jun 23 01:00:00 2021 Linzess 290 mcg capsule 1 CAP CAPSULE Or al 1 Time Daily DX IBS W/ CONSTIPATION TueJun 03 15:00:00 2021Jun 23 01:00:00 2021 metoprolol tartrate 50 mg tablet 1 TAB TABLET Oral 2 Times Daily TueJun 03 15:00:00 2021Jun 23 01:00:00 2021 multivitamin capsule 1 CAP CAPSULE Oral 1 Time Daily DX SUPPLEMENT TueJun 03 15:00:00 2021Jun 23 01:00:00 2021 Namzaric 28 mg-10 mg capsule sprinkle,extended release 1 CAP CAPSULE SPRINKLE, EXTENDED RELEASE 24 HR Oral Hour Of Sleep TueJun 03 15:00:00 2021Jun 10 14:23:00 2021 nystatin 100,000 unit/gram topical powder 1 APPLIC POWDER (GRAM) Topical PRN APPLY TO AFFECTED AREA(S) DIRECTEDDX INFECTION / IRRITATION TueJun 03 15:00:00 2021Jun 23 01:00:00 EDT 2021 oxyCODONE 5 mg tablet 1 TAB TABLET Oral PRN Every 4 Hours DX PAIN TueJun 03 15:00:00 EDT 2021Jun 23 01:00:00 EDT 2021 PARoxetine 20 mg tablet 1 TAB TABLET Ora l 1 Time Daily DX DEPRESSION TueJun 03 15:00:00 EDT 2021Jun 23 01:00:00 EDT 2021 pregabalin 100 mg capsule 1 CAP CAPSULE Oral 3 Times Daily DX NERVE PAIN TueJun 03 15:00:00 EDT 2021Jun 23 01:00:00 EDT 2021 QUEtiapine 200 mg tablet 1 TAB TABLET Or al 2 Times Daily DX AGITATION TueJun 03 15:00:00 EDT 2021Jun 18 09:36:00 EDT 2021 ramelteon 8 mg tablet 1 TAB TABLET Oral Hour Of Sleep DX INSOMNIA TueJun 03 15:00:00 EDT 2021Jun 23 01:00:00 EDT 2021 Xarelto 15 mg tablet 1 TAB TABLET Oral 2 Times Daily for 19 Days WITH MEALS *FOR 40 DOSES*DX CLOT PREVENTION TueJun 03 15:00:00 EDT 2021Jun 10 14:36:00 EDT 2021 Xarelto 20 mg tablet 1 TAB TABLET Oral 1 Time Daily WITH DINNERDX CLOT PREVENTION TueJun 22 01:00:00 EDT 2021Jun 10 14:36:00 EDT 2021 Trulicity 1.5 mg/0.5 mL subcutaneous pen injector 1.5MG PEN INJECTOR (ML) Subcutaneous 1 Time Weekly ON TuesdayJun 07 01:00:00 EDT 2021Jun 23 01:00:00 EDT 2021 Florastor 250 mg capsule 1 cap CAPSULE O ral Hour Of Sleep DX PROBIOTIC / GI HEALTH TueJun 03 15:00:00 EDT 2021Jun 23 01:00:00 EDT 2021 Problems Active Concerns * Presence of urogenital implants* Code: * Start Date: TueJun 03 00:00:00 EDT 2021 * End Date: * Text: * Unspecified osteoarthritis, unspecified site* Code: * Start Date: TueJun 03 00:00:00 EDT 2021 * End Date: * Text: * Type 2 diabetes mellitus with diabetic chronic kidney disease* Code: * Start Date: TueJun 03 00:00:00 EDT 2021 * End Date: * Text: * Hypertensive chronic kidney disease with stage 1 through stage 4 chronic kidney disease, or unspecified chronic kidney disease* Code: * Start Date: TueJun 03 00:00:00 EDT 2021 * End Date: * Text: * Displaced trimalleolar fracture of right lower leg, subsequent encounter for closed fracture with routine healing* Code: * Start Date: TueJun 03 00:00:00 EDT 2021 * End Date: * Text: * Displaced fracture of second metatarsal bone, right foot, subsequent encounter for fracture with routine healing* Code: * Start Date: TueJun 03 00:00:00 EDT 2021 * End Date: * Text: * Displaced fracture of third metatarsal bone, right foot, subsequent encounter for fracture with routine healing* Code: * Start Date: TueJun 03 00:00:00 EDT 2021 * End Date: * Text: * Displaced fracture of fourth metatarsal bone, right foot, subsequent encounter for fracture with routine healing* Code: * Start Date: TueJun 03 00:00:00 EDT 2021 * End Date: * Text: * Neuromuscular dysfunction of bladder, unspecified* Code: * Start Date: TueJun 03 00:00:00 EDT 2021 * End Date: * Text: * Displaced fracture of navicular [scaphoid] of right foot, subsequent encounter for fracture with routine healing* Code: * Start Date: TueJun 03 00:00:00 EDT 2021 * End Date: * Text: * Displaced fracture of medial cuneiform of right foot, subsequent encounter for fracture with routine healing* Code: * Start Date: TueJun 03 00:00:00 EDT 2021 * End Date: * Text: * Unspecified fall, subsequent encounter* Code: * Start Date: TueJun 03 00:00:00 EDT 2021 * End Date: * Text: * Generalized anxiety disorder* Code: * Start Date: TueJun 03 00:00:00 EDT 2021 * End Date: * Text: * Major depressive disorder, single episode, unspecified* Code: * Start Date: TueJun 03 00:00:00 EDT 2021 * End Date: * Text: * Insomnia due to other mental disorder* Code: * Start Date: TueJun 03 00:00:00 EDT 2021 * End Date: * Text: * Chronic kidney disease, stage 3b* Code: * Start Date: TueJun 03 00:00:00 EDT 2021 * End Date: * Text: * Slow transit constipation* Code: * Start Date: TueJun 03 00:00:00 EDT 2021 * End Date: * Text: * Drug induced constipation* Code: * Start Date: TueJun 03 00:00:00 EDT 2021 * End Date: * Text: * Adverse effect of other opioids, subsequent encounter* Code: * Start Date: TueJun 03 00:00:00 EDT 2021 * End Date: * Text: * Mixed hyperlipidemia* Code: * Start Date: TueJun 03 00:00:00 EDT 2021 * End Date: * Text: * Personal history of pulmonary embolism* Code: * Start Date: TueJun 03 00:00:00 EDT 2021 * End Date: * Text: * Hypothyroidism, unspecified* Code: * Start Date: TueJun 03 00:00:00 EDT 2021 * End Date: * Text: * Iron deficiency anemia, unspecified* Code: * Start Date: TueJun 03 00:00:00 EDT 2021 * End Date: * Text: * Candidiasis of skin and nail* Code: * Start Date: TueJun 03 00:00:00 EDT 2021 * End Date: * Text: * Nonalcoholic steatohepatitis (COFFMAN)* Code: * Start Date: TueJun 03 00:00:00 EDT 2021 * End Date: * Text: * Sensorineural hearing loss, bilateral* Code: * Start Date: TueJun 03 00:00:00 EDT 2021 * End Date: * Text: * nursing home (current) use of aspirin* Code: * Start Date: TueJun 03 00:00:00 EDT 2021 * End Date: * Text: * 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* Code: * Start Date: TueJun 03 00:00:00 EDT 2021 * End Date: * Text: * truck 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 (current) use of anticoagulants* Code: * Start Date: TueJun 03 00:00:00 EDT 2021 * End Date: * Text: * Alzheimer's disease, unspecified* Code: * Start Date: TueJun 03 00:00:00 EDT 2021 * End Date: * Text: * Dementia in other diseases classified elsewhere, unspecified severity, without behavioral disturbance, psychotic disturbance, mood disturbance, and anxiety * Code: * Start Date: TueJun 03 00:00:00 EDT 2021 * End Date: * Text: * Presence of other bone and tendon implants* Code: * Start Date: TueJun 03 00:00:00 EDT 2021 * End Date: * Text: * Acute posthemorrhagic anemia* Code: * Start Date: TueJun 03 00:00:00 EDT 2021 * End Date: * Text: * Schizoaffective disorder, unspecified* Code: * Start Date: TueJun 03 00:00:00 EDT 2021 * End Date: * Text: Reason for Referral Past Medical History
--- OUTSIDE RECORDS SUMMARY | 2024-06-25 11:43 | XMS_ITS | Clinical Summary ---
Author Organization [facility] Address [facility] [place] [address] Care Team Providers Care Print Decorator Name Role Phone Carol Staples MD Primary [...] (05/15/2021): Added automatically from request for surgery [id number] Closed displaced fracture of medial malleolus of right tibia 05/15/2021 Overview (05/25/2021): Added automatically from request for surgery [id number] Neurogenic bladder 04/17/2021 Overview (04/17/2021): Added automatically from request for surgery [id number] Assessment & Plan (09/03/2021 9:34 PM CDT): [...] often do you attend chur ch or faith services? 1 to 4 times per year 09/07/2021 Do you belong to any clubs o r organizations such as muslim groups, unions, fraternal or athletic groups, or [...] place to sleep or slept in a residential (including now)? No 09/07/2021 Personal Safety Answer Date Recorded Getting School Help Needed Not on file 04/02 Comments No Sex and Gender Information Value Date Recorded Sex Assigned at Not on file Legal Sex Female 12:38 AM HOME STEREO EQUIPMENT INSTALLER Gender Identity Not on file Sexual Orientation Not on file Obstetrics History Last Filed Vital Signs Vital Sign Reading Time Taken Comments Blood Pressure 126/76 02/03/2023 8:58 AM HOME STEREO EQUIPMENT INSTALLER Pulse 69 02/03/2023 8:58 AM HOME STEREO EQUIPMENT INSTALLER Temperature 36.7 C (98.1 F) 02/03/2023 8:58 AM HOME STEREO EQUIPMENT INSTALLER Respiratory Rate 18 01/14/2022 9:20 AM CDT Oxygen Saturation 95% 09/15/2021 6:34 AM CDT Inhaled Oxygen Concentration - - Weight 129.7 kg (286 lb) 02/03/2023 8:58 AM HOME STEREO EQUIPMENT INSTALLER Height 175.3 cm (5' 9 ) 02/03/2023 8:58 AM HOME STEREO EQUIPMENT INSTALLER Body Mass Index 42.23 02/03/2023 8:58 AM HOME STEREO EQUIPMENT INSTALLER Plan of Treatment Health Maintenance Due Date [...] season) 2023 06/05/2021, 07/24/2020, 07/03/2020 Influenza Vaccine (Season Ended) 2024 01/09/2021, 11/29/2019, 11/29/2018, Additional history exists DTaP/Tdap/Td Vaccine (5 - Td or Tdap) 12/23/2024 12/23/2014, 12/22/2014, 01/09/2013, Additional history exists Medical Devices Implanted Type Area Industrial Machine Assembler Device Identifier Shelf Expiration Date Model / Serial / Lot [employer]/Ort ho [id number] [id number] 16.3x1.7mm 13 Hole Low Profile Variable Angle - S0 - [id number] Implanted:Qty: 1 on 05/16/2021 by Lori Carnes MD at [facility] Plate Right: Ankle [employer]/ Ortho [id number] 06/26/2028 [id number] / 0 / [id number] [employer]/Ort ho [id number] Evos 3.5mm 48mm Self Tap Cortex Screw Bone Sterile - S0 - [id number] Implanted:Qty: 1 on 05/16/2021 by Lori Carnes MD at [facility] Screw Right: Ankle [employer]/ Ortho [id number] / 0 / 0 [employer]/Ort ho [id number] Evos 3.5mm 50mm Self Tap Cortex Screw Bone Sterile - S0 - [id number] Implanted:Qty: 1 on 05/16/2021 by Lori Carnes MD at [facility] Screw Right: Ankle [employer]/ Ortho [id number] / 0 / 0 [employer]/Ort ho [id number] Evos Mini 2.7mm 4.5mm 12mm Self Tap Cortex T8 Screw Bone - S0 - [id number] Implanted:Qty: 1 on 05/16/2021 by Lori Carnes MD at [facility] Screw Right: Ankle [employer]/ Ortho [id number] / 0 / 0 [employer]/Ort ho [id number] Evos Mini 2.7mm 4.5mm 13mm Self Tap Cortex T8 Screw Bone - S0 - [id number] Implanted:Qty: 1 on 05/16/2021 by Lori Carnes MD at [facility] Screw Right: Ankle [employer]/ Ortho [id number] / 0 / 0 [employer]/Ort ho [id number] Evos Mini 2.7mm 4.5mm 15mm Self Tap Cortex T8 Screw Bone - S0 - [id number] Implanted:Qty: 3 on 05/16/2021 by Lori Carnes MD at [facility] Screw Right: Ankle [employer]/ Ortho [id number] / 0 / 0 [employer]/Ort ho [id number] Evos 3.5mm 12mm Self Tap Cortex Screw Bone Sterile - S0 - [id number] Implanted:Qty: 4 on 05/16/2021 by Lori Carnes MD at [facility] Screw Right: Ankle [employer]/ Ortho [id number] / 0 / 0 [employer]/Ort ho [id number] Evos 3.5mm 46mm Self Tap Cortex Screw Bone Sterile - S0 - [id number] Implanted:Qty: 1 on 05/16/2021 by Lori Carnes MD at [facility] Screw Right: Ankle [employer]/ Ortho [id number] / 0 / 0 Rt Shoulder Pin Right: Shoulder Lumbar Spine Fusion Instrumemtation Spine Lumbar [employer]/Ort ho [id number] Evos 3.5mm 75mm Self Tap Cortex Screw Bone Sterile - [id number] Implanted:Qty: 1 on 05/28/2021 by Randall Camp MD at [facility] Right: Ankle [employer]/ Ortho [id number] / / Explanted Type Area Industrial Machine Assembler Device Identifier Shelf Expiration Date Model / Serial / Lot [employer]/O rtho [id number] Evos 2mm 14mm Provisional Pin Fixation Sterile - S0 - [id number] Explanted:Qty: 1 on 05/16/2021 at [facility] Pin Right: Ankle [employer]/Or tho [id number] / 0 / 0 Description:Temporary Placem ent; Provisional Fixation, only [employer]/O rtho [id number] Pin 25mm 2.5mm Fixation Evos Provisional Sterile - S0 - [id number] Explanted:Qty: 1 on 05/16/2021 at [facility] Pin Right: Ankle [employer]/Or tho [id number] / 0 / 0 Description:Temporary Placem ent; Provisional Fixation, only [employer]/O rtho [id number] Evos 3.5mm 15mm Self Tap Cortex Screw Bone Sterile - S0 - [id number] Explanted:Qty: 1 on 05/16/2021 at [facility] Screw Right: Ankle [employer]/Or tho [id number] / 0 / 0 Procedures Procedure Name Priority Date/Time Associated Diagnosis Comments EGFR Routine 09/11/2021 3:21 AM CDT HEMOGLOBIN A1C Routine 09/04/2021 4:18 AM CDT LIPID PANEL STAT 05/15/2021 1:38 PM HOME STEREO EQUIPMENT INSTALLER from Last 3 Months or Most Recently [...] was last reviewed 2021. Testing performed by: [address] [address] Blood 09/11/2021 3:21 AM CDT 09/11/2021 5:45 AM CDT Dipti López MD LAB BLOOD ORDERABLES Final Res ult Performing Organization Address [facility]/ZIP Co de Phone Number [address] [place] [address] * (ABNORMAL) Hemoglobin A1c (09/04/2021 4:18 AM CDT) Hgb A1C 6.4(H) 4.0 - 5.6 % [facility] Comment:Testing performed by : [address] [address] Estimated Average Glucose 137 mg/dL [facility] Comment: The ADA recommends reporting an estimated Average Glucose (eAG) with all Hemoglobin A1c results using the equation derived from a study of 507 normal and diabetic adults. Minority populations were underrepresented and children were not included. (Diabetes Care 31:7647-0226, 2008). The eAG is not equivalent to a fasting glucose. Testing performed by: [address] [address] Blood 09/04/2021 4:18 AM CDT 09/04/2021 5:27 AM CDT Adeline Bo DO LAB BLOOD ORDERABLES Final Re sult Performing Organization Address City/[facility]/ZIP Co de Phone Number [facility] [address] [facility] [place] [address] * (ABNORMAL) Lipid panel (05/15/2021 1:38 PM HOME STEREO EQUIPMENT INSTALLER) Cholesterol 155 30 - 199 mg/dL [facility] Comment: Interpretive Data Ages < or [...] revised on 2017. Triglycerides 372(H) <=149 mg/dL [facility] Comment: Interpretive Data Ages < [...] revised on 2017. HDL 29(L) >=40 mg/dL [facility] Comment: Interpretive Data Ages < [...] on 2017. LDL, calculated 52 <=129 mg/dL [facility] Comment: Interpretive Data Ages < [...] [address] [facility] Blood 05/15/2021 1:38 PM HOME STEREO EQUIPMENT INSTALLER 05/15/2021 1:48 PM HOME STEREO EQUIPMENT INSTALLER Radha Lara MD LAB BLOOD ORDERABLES Raisa davila Result [facility] [place] [address] from Last 3 Months or Most Recently Relevant to Health Maintenance Insurance AET MEDICARE [facility] [place] [address] [facility] MEDICARE [facility] [place] [address] [employer] MEDICARE Advance Directives For more information, please contact: [phone] * Full Code (Latest Code Status on File) Date Activated Date Inactivated Comments 05/15/2021 10:09 PM 06/03/2021 10:44 PM Care Teams Print Decorator Relationship Specialty Start Date End Date Carol Staples MD [address] [place] [address] PCP - General Family Medicine 07/18/20
--- OUTSIDE RECORDS SUMMARY | 2024-06-25 11:44 | XMS_ITS | Clinical Summary ---
Author Organization [facility] [employer] Address [address] [place] [address] Care Team Providers Care Java Front End Web Developer Name Role Phone Amanda Hanks MD Primary Care Provider [phone] Source Comments [facility] [employer],non-owned Affiliates and Associated Physician Practices is [facility] organization consisting of ambulatory clinics and hospital sitesin [place], [place], [place] and [place]. This disclosure is being madepursuant to the Care Everywhere program and may not contain all information available regarding this patient. Last updated 17.[facility] [employer] Allergies No known active allergies Medications * [...] 65 Units subcutaneously. Active Cholecalciferol (VITAMIN D3) 78714 UNITS CAPS capsule Take 50,000 Units by [...] Comments Blood Pressure 170/92 04/08/2014 2:21 PM CORPORATE MANAGER Pulse 116 04/08/2014 2:21 PM CORPORATE MANAGER Temperature 36.9 C (98.5 F) 04/08/2014 2:21 PM CORPORATE MANAGER Respiratory Rate 18 04/08/2014 2:21 PM CORPORATE MANAGER Oxygen Saturation - - Inhaled Oxygen Concentration - - Weight 131.5 kg (290 lb) 05/20/2014 12:04 PM CORPORATE MANAGER Height 175.3 cm (5' 9 ) 05/20/2014 12:04 PM CORPORATE MANAGER Body Mass Index 42.83 05/20/2014 12:04 PM CORPORATE MANAGER Plan of Treatment Health Maintenance Due Date [...] 60-74 years 1-dose series) 2014 COVID-19 VACCINE (1 - 2023-2 5 season) 2023 DEPRESSION SCREENING 03/21/2024 INFLUENZA VACCINE (Season Ended) 2024 HEPATITIS C SCREENING Completed 06/10/2014 HEPATITIS B VACCINE Aged Out No longe r eligible based on patient's age to complete this topic HIB VACCINE Aged Out No longer eligi ble based on patient's age to complete this topic HPV VACCINE Aged Out No longer eligi ble based on patient's age to complete this topic MENINGOCOCCAL (Group B) VACC INE SHARED DECISION-MAKING Aged Out No longer eligibl e based on patient's age to complete this topic MENINGOCOCCAL GROUPS A/C/Y/W VACCINE Aged Out No longer eligible b ased on patient's age to complete this topic Procedures Procedure Name Priority Date/Time Associated Diagnosis Comments HEPATITIS C ANTIBODY Routine 06/10/2014 11:55 AM CDT from Last 3 Months or Most Recently Relevant to Health Maintenance Results * HEPATITIS C ANTIBODY (06/10/2014 11:55 AM CDT) Hepatitis C Antibody NON-REACTI VE NON-REACT [facility] Signal/Cutoff 0.02 <1.00 [facility] Comment: Test Performed at: [facility] [place] [address] [place] [address] GUERLINE MORSE DO,MPH 06/10/2014 11:5 5 AM CDT 06/10/2014 11:56 AM CDT Phil Houser MD LAB - CHEM ISTRY ORDERABLES [facility]) from Last 3 Months or Most Recently Relevant to Health Maintenance Care Teams Java Front End Web Developer Relationship Specialty Start Date End Date Amanda Hanks MD [address] [place] [phone] PCP - General Family Medicine 04/18/14
[2024-06-25 12:21] LABS: Free T4 Free Thyroxine 0.88 ng/dL (0.78-2.19); Vitamin D 25 Hydroxy 58.1 ng/mL
[2024-06-25 12:51] LABS: LDL Cholesterol Direct 42 mg/dL
[2024-06-25 12:54] LABS: Alanine Aminotransferase 32 U/L (6-35); Alkaline Phosphatase 127 U/L (38-126); Anion Gap 9 mmol/L (4-12); Aspartate Amino Transferase 25 U/L (14-36); Bilirubin,Total 0.5 mg/dL (0.2-1.3); Blood Urea Nitrogen 50 mg/dL (7-17); Calcium 10.1 mg/dL (8.4-10.2); Carbon Dioxide 29 mmol/L (22-30); Chloride 100 mmol/L (98-107); Cholesterol 195 mg/dL (0-200); Estimated Glomerular Filt Rate 31; Glucose 201 mg/dL (65-110); Potassium 4.6 mmol/L (3.4-5.0); Sodium 138 mmol/L (137-145)
[2024-06-25 12:56] LABS: Creatinine Urine 49.7 mg/dL
[2024-06-25 13:00] LABS: Triglycerides 676 mg/dL (<150)
[2024-06-25 13:26] LABS: MALB Creatinine Ratio 609.9 mg/g (0-30); Microalbumin Urine Random 303.1 mg/L (0-16.7)
== END 2024-06-25 10:19 | disposition home or self-care (01) ==
PROVIDERS: PCP Family Medicine; Visit Provider Nurse Practitioner Family
DX: E11.21 Type 2 diabetes mellitus with diabetic nephropathy (principal); I10 Essential (primary) hypertension; Z79.4 Long term (current) use of insulin; E78.2 Mixed hyperlipidemia
CPT/HCPCS: 36415; 80053; 80061; 82043; 82306; 82607; 84439; 84443

== ENCOUNTER 2024-06-28 10:45 | Outpatient (RCR) | payer MEDICARE, OTHER, SELFPAY ==
[2024-06-07 11:20] VITALS: BMI 43.3
[2024-06-07 11:36] VITALS: BMI 43.3
[2024-06-28 10:45] VITALS: BMI 43.3
== END 2024-07-08 23:59 | disposition home or self-care (01) ==
LOC: ANHDMC 10:45
PROVIDERS: Visit Provider Student in an Organized Health Care Education/Training Program
DX: E11.65 Type 2 diabetes mellitus with hyperglycemia (principal); Z79.4 Long term (current) use of insulin; Z71.89 Other specified counseling; Z71.3 Dietary counseling and surveillance
CPT/HCPCS: 95249; 97802; 97803; G0108

== ENCOUNTER 2024-07-26 11:10 | Outpatient (RCR) | payer MEDICARE, OTHER, SELFPAY ==
--- NOTE | 2025-03-27 09:18 | PCDIET ---
Pt did not keep 2024 [facility] follow up appt. I reached out and daughter advised they would call to reschedule. Not rescheduled. Please re-refer [facility] follow up prn
== END 2024-10-17 10:59 | disposition home or self-care (01) ==
LOC: ANHDMC 11:10
PROVIDERS: PCP Family Medicine; Visit Provider Student in an Organized Health Care Education/Training Program
DX: E11.65 Type 2 diabetes mellitus with hyperglycemia (principal); E11.21 Type 2 diabetes mellitus with diabetic nephropathy; Z79.4 Long term (current) use of insulin; Z71.3 Dietary counseling and surveillance
CPT/HCPCS: 97803

== ENCOUNTER 2024-08-11 23:20 | Emergency (ER) | payer MEDICARE, OTHER, SELFPAY ==
[2024-08-11 23:21] VITALS: BP 129/80; PULSE 73; RESP 16; TEMP 36.9; O2SAT 98
--- OUTSIDE RECORDS SUMMARY | 2024-08-11 23:35 | XMS_ITS ---
Author Name Auto Generated, Auto Generated Organization [facility] Address [address] [place] [address] Phone [phone] Care Team Providers Care Pie Baker Name Role Phone Jacob Castro Unavailable [phone] Curtis Jaramillo Unavailable Functional Status Mental Status Allergies and Intolerances Medications Problems Reason for Referral Past Medical History
--- OUTSIDE RECORDS SUMMARY | 2024-08-11 23:35 | XMS_ITS | Continuity of Care Document ---
Author Name [facility] Organization [facility] Care Team Providers Care Log Chain Feeder Name Role Phone [facility] Unavailable Unavailable Problems Combined list of problems from [facility] facilities. It does not include entries that were removed or entered in error. Problem Status Onset Date Problem Type Date of Resolution Comments Source Hyperlipidemia (SNOMED CT 11147382) Active Condition [facility] Seizures * Active Condition [facility] Allergies, Adverse Reactions, Alerts Combined list of allergies from [facility] facilities. It does not include entries that were removed or entered in error. Substance Category Reaction Severity Reaction type Status Date Reported Comments Source VANCOMYCIN Propensity to adverse reactions to drug (finding) Erythema active 3 [facility] Immunizations Combined list of available immunizations from the [facility] facilities. Immunization Series Date Given Administered By Site Reaction Lot Number CVX Code Drug Cheese Pancake Roller Status Comments Source INFLUENZA, UNSPECIFIED FORMULATION 2012 88 complet ed [facility] TDAP 2012 115 complet ed Right Deltoid [facility] Social History Combined list of available smoking, tobacco, and other social history from [facility] facilities. Social History Type Response Date Comment Javier nelson Tobacco smoking status NHIS LIFETIME NON-USER OF TOBACCO 01/09/2013 [facility]
--- NOTE | 2024-08-11 23:38 | ED_ITS ---
HPI - Female Genitourinary General Chief complaint: Urogenital-Female Stated complaint: CATHETER ISSUES Time Seen by Provider: 08/11/24 23:24 Source: patient Mode of arrival: EMS Limitations: no limitations History of Present Illness HPI Narrative: Patient presents with catheter issues. She has an indwelling Vigil catheter and has noted decreased urine output with known since 5:00 p.m.. She has had issues with this catheter and her home care has had to change this catheter. She also has a history of recurrent UTIs. She was initially moaning in pain in restless unable to sit still complaining of bladder spasm. She has urology care through urology [facility], no specific urologist in particular. She was initially complaining of greater than 10 out 10 pain in severity. She is not chronically on baseline antibiotic therapy. She denies any flank pain, fevers, or chills. Related Data Home Medications ?Medication ?Instructions ?Recorded ?Confirmed ?Last Taken ?Type acetaminophen 500 mg tablet 1,000 mg PO BID Pain 07/10/20 07/31/24 05/18/23 07:00 History (Tylenol Extra Strength) multivit with minerals-iron 18 1 tablet PO DAILY 03/06/21 07/31/24 05/18/23 07:00 History mg-folic ac 400 mcg-vit K 25 mcg tablet (Adults Multivitamin) aspirin 81 mg tablet,delayed 81 mg PO BID 10/30/21 07/31/24 05/18/23 07:00 History release clotrimazole-betamethasone 1 1 applic topical BID 05/18/23 07/31/24 05/18/23 07:00 History %-0.05 % topical cream dextrin 3 gram/4 gram oral powder 2 tsp PO TID PRN Constipation 05/18/23 07/31/24 05/18/23 07:00 History (Clear Fiber) ferrous sulfate 325 mg (65 mg 325 mg PO BID 02/14/24 07/31/24 Unknown History iron) tablet lactobacillus combination no.9 1 cap PO DAILY 02/14/24 07/31/24 Unknown History nystatin 100,000 unit/gram topical 1 applic topical BID 02/14/24 07/31/24 Unknown History cream memantine ER 28 mg-donepezil 10 mg 1 cap PO HS 03/23/24 07/31/24 Unknown History capsule sprinkle,ext.release 24 hr (Namzaric) insulin lispro 100 unit/mL 8 unit subcut TIDWMEAL 07/31/24 07/31/24 Unknown History subcutaneous pen (Humalog KwikPen (U-100) Insulin) solifenacin 5 mg tablet 5 mg PO DAILY 07/31/24 07/31/24 Unknown History Allergies Allergy/AdvReac Type Severity Reaction Status Date / Time ciprofloxacin Allergy Mild Hives Verified 07/31/24 15:22 metronidazole Allergy Mild Hives Verified 07/31/24 15:22 divalproex sodium Allergy Unknown Unknown Verified 07/31/24 15:22 vancomycin Allergy Unknown Unknown Verified 07/31/24 15:22 [facility] Past Medical History Medical History Hypothyroidism Mild cognitive impairment with memory loss Obstructive sleep apnea on CPAP Insulin dependent type 2 diabetes mellitus Chronic venous insufficiency Diabetic gastroparesis Chronic indwelling Vigil catheter neurogenic bladder Dementia with behavioral disturbance Morbid obesity with BMI of 40.0-44.9, adult Vitamin D deficiency, unspecified Severe recurrent major depressive disorder with psychotic features Post-menopausal Polypharmacy Mixed hyperlipidemia Gout Dyskinesia, tardive Diabetic nephropathy associated with type 2 diabetes mellitus Depressive type psychosis Chronic pain disorder Chronic kidney disease, stage III (moderate) Benzodiazepine abuse, continuous Anxiety Antipsychotic-induced akathisia Pulmonary embolism (2020) Benign essential hypertension Brain hypoxia Chronic obstructive pulmonary disease Psychophysiological insomnia Surgical History Surgical History History of section History of hysterectomy History of back surgery Family History Family History Father Diabetes mellitus Hypertension Patient's father is , Onset Age: 75 Family history of renal failure Heart disease Cancer Mother Family history of malignant neoplasm of stomach Hypertension Cancer Thyroid disorder Sibling Depression Other Family history of arthritis Social History Social History Social History: At home she uses a walker and wheelchair to ambulate Surrogate medical decision maker: Serjio Michel, spouse. Code status: Full code. Smoking status: Never smoker Second hand tobacco smoke exposure: No Alcohol intake: never Substance use: never Substance use type: marijuana Other substance usage details: hx of marijuana use 2022 Do You Feel Safe in your Home?: Yes Lack of Transportation: No Lack of Food: Never True Current Housing: I Have Housing Concerned About Future Housing: No Difficulty Paying Gas/Electric Bills: No Difficulty Paying for Meds: No Currently Unemployed: No Education: High School Diploma/GED Difficulty w/ Childcare or Family Care: No Living arrangements: with family Additional living arrangements comments: She lives at home with her and 2 daughters. Her daughters help at night and she has caregivers as well. Occupation/Education: retired Spiritual care concerns: No Exam 2 Narrative: GENERAL: Well-appearing, well-nourished, and in no acute distress. HEAD: Normocephalic, atraumatic. EYES: Non injected, non icteric ENT: Nares clear, no rhinorrhea or epistaxis. Gross auditory acuity intact. NECK: Supple. No meningismus. CHEST: Speaking in full sentences. No respiratory distress. HEART: Regular rate and rhythm. : Normal external genitalia with Vigil that is draining yellow urine. ABDOMEN: Morbidly obese but Soft, nondistended. No rigidity or guarding. Not peritoneal. No tenderness palpation. EXTREMITIES: Normal range of motion. No lower extremity edema. SKIN: Warm, dry, no rash. NEURO: No focal deficits. Alert and oriented. Answering questions. Following commands. Normal speech without aphasia or dysarthria. PSYCH: Normal mood and affect. Course Vital Signs Vital signs: Vital Signs Temperature 98.5 F 08/11/24 23:21 Pulse Rate 73 08/11/24 23:21 Respiratory Rate 16 08/11/24 23:21 Blood Pressure 129/80 08/11/24 23:21 Pulse Oximetry 98 08/11/24 23:21 Oxygen Delivery Room Air 08/11/24 23:21 Temperature 98.5 F 08/11/24 23:21 Pulse Rate 73 08/11/24 23:21 Respiratory Rate 16 08/11/24 23:21 Blood Pressure 132/70 08/12/24 00:56 Pulse Oximetry 98 08/11/24 23:21 Oxygen Delivery Room Air 08/11/24 23:21 MDM - Female Genitourinary MDM Narrative Medical decision making narrative: Patient presents with her Vigil catheter not draining. She has had decreased urine output with the last output noted at 5:00 p.m.. She is initially in significant pain, moaning and unable to sit still complaining of bladder spasm. In the emergency department they are afebrile with vital signs within normal limits. Vigil catheter changed by nurse who reports that patient had 800 cc output and immediate relief of pain. As I evaluated patient she notes that she is feeling much better and her pain is resolved. Catheter is draining appropriately colored urine. Urine looks grossly contaminated on urinalysis. Reflex culture is pending. Previous urine culture from January 2024 is reviewed which grew E coli that was sensitive to numerous antibiotics, only resistant to ciprofloxacin/levofloxacin, nonreactive to cefazolin but sensitive to other cephalosporins, and indeterminate to nitrofurantoin. Will give cephalexin. Low suspicion for pyelonephritis given no fever, chills, or flank pain. Patient is given her 1st dose of cephalexin in the emergency department with the rest of the course to follow. She has hyperglycemia without anion gap acidosis. BUN and creatinine are stable as baseline, consistent with her CKD. Patient discharged home in stable condition with prescription for antibiotics and advised on the importance of glycemic control especially in the setting of urinary tract infection. Advised follow-up with PCP/urology. Differential Diagnosis Differential diagnosis: Likely urinary tract infection and other (catheter malfunction/issue; c/f obstruction; hx neurogenic bladder) Lab Data Attestation: I reviewed the patient's lab results. 08/12/24 00:01 08/12/24 00:01 Labs: Lab Results 08/11/24 08/12/24 Range/Units 23:45 00:01 WBC 5.9 (4.5-10.0) K/mm3 RBC 3.77 L (4.2-5.4) M/mm3 Hgb 11.9 L (12.0-15.0) g/dL Hct 38.1 (37.0-47.0) % MCV 101.1 H (80-100) fl MCH 31.6 (26-34) pg MCHC 31.2 L (32-36) g/dl RDW 15.4 H (11.5-14.5) % Plt Count 179 (150-375) k/mm3 MPV 10.5 H (7.4-10.4) fl Immature Gran % (Auto) 0.5 (0-0.5) % Neut % (Auto) 62.0 (45.5-73.1) % Lymph % (Auto) 25.2 (18.3-44.2) % Emery % (Auto) 7.5 (2.6-8.5) % Eos % (Auto) 4.3 (0-4.4) % Baso % (Auto) 0.5 (0.2-1.2) % Lymph # (Auto) 1.48 (0.9-3.2) K/mm3 Emery # (Auto) 0.4 (0.1-0.6) K/mm3 Eos # (Auto) 0.3 (0-0.3) K/mm3 Baso # (Auto) 0.0 (0.0-0.1) K/mm3 Abs Immat Gran (auto) 0.03 (0.00-0.031) K/mm3 Absolute Neuts (auto) 3.7 (1.3-6.7) K/mm3 Absolute Nucleated RBC 0.000 (0.0-0.012) K/mm3 Nucleated RBC % 0.0 (0.0-0.2) % Sodium 139 (137-145) mmol/L Potassium 4.2 (3.4-5.0) mmol/L Chloride 100 (98-107) mmol/L Carbon Dioxide 32 H (22-30) mmol/L Anion Gap 7 (4-12) mmol/L BUN 54 H (7-17) mg/dL Creatinine 1.67 H (0.7-1.0) mg/dL Estim Creat Clear Calc 41 ml/min Estimated GFR 30 L (59 - ) Glucose 194 H (65-110) mg/dL Calcium 10.0 (8.4-10.2) mg/dL Total Bilirubin 0.4 (0.2-1.3) mg/dL AST 36 (14-36) U/L ALT 28 (6-35) U/L Alkaline Phosphatase 119 (38-126) U/L Total Protein 7.0 (6.3-8.2) g/dL Albumin 3.9 (3.5-5.1) g/dL Urine Color Yellow (Yellow) Urine Appearance Turbid H (Clear) Urine pH 6.5 (5.0-9.0) Ur Specific Condon 1.012 (1.001-1.035) Urine Protein 1+ H (Negative) mg/dL Urine Glucose (UA) Negative (Negative) mg/dL Urine Ketones Negative (Negative) mg/dL Ur Blood (Man) 1+ H (Negative) Urine Nitrate Positive H (Negative) Urine Bilirubin Negative (Negative) Urine Urobilinogen 0.2 (<2.0) mg/dL Leukocyte Esterase Rfl 3+ H (Negative) ARTURO/UL Urine RBC 3-5 H (0-2) /hpf Urine WBC >100 H (0-3) /hpf Ur Squamous Epith Cells None seen (Few) /hpf Urine Bacteria 4+ H /hpf Urine Casts 0-2 Discharge Plan Discharge Clinical Impression: Catheter-associated urinary tract infection, Hyperglycemia due to diabetes mellitus, CKD (chronic kidney disease), Encounter for Vigil catheter replacement Patient Disposition: Home Condition: Stable Instructions: Antibiotic Form, Chronic Kidney Disease (ED), Chronic Kidney Disease Diet (DC), Managing Diabetes During Sick Days (ED), Diabetic Hyperglycemia (ED), Catheter-associated Urinary Tract Infection (ED) Additional Instructions: Your Vigil catheter was exchanged for a new 1 today and this relieved your pain and pressure. Your urine does appear to be infected in you received the 1st dose of antibiotic in the emergency department with rest the course prescribed. It is important that, especially while you have a UTI, you have good control of your diabetes so continue taking all of your medications including any diabetes medications as prescribed. Follow-up with primary care physician and/or [facility]. Return to the emergency department with any new or worsening or recurrent symptoms. Patient Language: Senegalese Prescriptions: New cephalexin 500 mg capsule 500 mg PO Q6H 5 Days Qty: 20 0RF No Action acetaminophen [Tylenol Extra Strength] 500 mg tablet 1,000 mg PO BID ferrous sulfate 325 mg (65 mg iron) tablet 325 mg PO BID nystatin 100,000 unit/gram cream 1 applic topical BID lactobacillus combination no.9 [Adult 50 Plus Probiotic] 1 cap PO DAILY furosemide 40 mg tablet See Rx Instructions .ROUTE .COMPLEX Qty: 90 0RF Dose Instruction: TAKE 1 TABLET BY MOUTH EVERY MORNING Rx Instructions: TAKE 1 TABLET BY MOUTH EVERY MORNING (DME) FreeStyle Mohan 3 Mimbres Misc See Rx Instructions .Route Qty: 1 0RF Rx Instructions: use for monitoring glucose on insulin (DME) pen needle, diabetic 31 gauge x 5/16 needle See Rx Instructions .ROUTE .COMPLEX Qty: 400 2RF Dose Instruction: USE FIVE TIMES DAILY Rx Instructions: USE FIVE TIMES DAILY insulin glargine U-300 conc [Toujeo Max U-300 SoloStar] 300 unit/mL (3 mL) insulin pen 50 unit subcut BID MDD 100 Qty: 32 1RF lisinopril 5 mg tablet 5 mg PO DAILY Qty: 90 1RF aspirin 81 mg tablet,delayed release (DR/EC) 81 mg PO BID insulin lispro [Humalog KwikPen Insulin] 100 unit/mL insulin pen 8 unit subcut TIDWMEAL Rx Instructions: Take 10 units +sliding scale TID 15 mins before meals 150-175: 1 unit 176-200: 2 units 201-225: 3 units 226-250: 4 units 251-300: 5 units 301-325: 6 units 326-350: 7 units 351-375: 8 units 376-400: 9 units >401: 10 units solifenacin 5 mg tablet 5 mg PO DAILY clotrimazole-betamethasone 1-0.05 % Cream 1 applic TOPICAL BID Rx Instructions: APPLY TO BUTTOCKS Clear Fiber 3 gram/4 gram Powder 2 tsp PO TID PRN (Reason: Constipation) Namzaric 28-10 mg capsule,sprinkle,ER 24hr 1 cap PO HS Adults Multivitamin 18 mg iron-400 mcg-25 mcg Tablet 1 tablet PO DAILY benztropine 0.5 mg tablet See Rx Instructions .ROUTE .COMPLEX Qty: 270 1RF Dose Instruction: TAKE 1 TABLET BY MOUTH THREE TIMES DAILY Rx Instructions: TAKE 1 TABLET BY MOUTH THREE TIMES DAILY lactulose 10 gram/15 mL solution 15 ml PO BID PRN (Reason: Constipation) Qty: 3785 0RF metoprolol tartrate 50 mg tablet 50 mg PO Q12H Qty: 60 5RF quetiapine 50 mg tablet 50 mg PO BID Qty: 60 5RF Mounjaro 2.5 mg/0.5 mL pen injector 2.5 mg subcut WEEKLY Qty: 2 0RF Rx Instructions: for 4 weeks clonidine HCl 0.1 mg tablet See Rx Instructions .ROUTE .COMPLEX Qty: 180 0RF Dose Instruction: TAKE 1 TABLET(0.1 MG) BY MOUTH TWICE DAILY. MAY REPEAT EVERY 1 HOUR. NOT TO EXCEED 0.7 MG 7 TABLETS PER 24 HOURS Rx Instructions: TAKE 1 TABLET(0.1 MG) BY MOUTH TWICE DAILY. MAY REPEAT EVERY 1 HOUR. NOT TO EXCEED 0.7 MG 7 TABLETS PER 24 HOURS rosuvastatin 20 mg tablet 20 mg PO DAILY Qty: 90 1RF icosapent ethyl [Vascepa] 1 gram capsule 2 g PO BID Qty: 360 1RF duloxetine 30 mg capsule,delayed release(DR/EC) 30 mg PO QHS Qty: 90 0RF tramadol 50 mg tablet 50 mg PO BID PRN (Reason: pain) Qty: 60 0RF pregabalin 100 mg capsule 100 mg PO TID Qty: 90 2RF Eliquis 2.5 mg tablet 2.5 mg PO BID Qty: 60 3RF (DME) [employer] Mohan 3 Sensor Device See Rx Instructions .Route Qty: 1 0RF Rx Instructions: use for monitoring blood sugar cholecalciferol (vitamin D3) 1,250 mcg (50,000 unit) capsule See Rx Instructions .ROUTE .COMPLEX Qty: 12 3RF Dose Instruction: TAKE 1 CAPSULE BY MOUTH ONCE WEEKLY ON FRIDAYS Rx Instructions: TAKE 1 CAPSULE BY MOUTH ONCE WEEKLY ON FRIDAYS Follow-up/Referrals: Javy Monsivais MD [Primary Care Provider] - Time of Disposition: 00:43
[2024-08-11 23:46] VITALS: BP 126/93
[2024-08-11 23:56] LABS: Add Urine Microscopic? YES; Appearance Urine Turbid (Clear); Bacteria Urine 4+ /hpf; Bilirubin Urine Negative (Negative); Blood Urine 1+ (Negative); Color Urine Yellow (Yellow); Glucose Urine UA Negative (Negative); Ketones Urine Negative (Negative); Leukocyte Esterase Ur 3+ LEU/UL (Negative); Nitrate Urine Positive (Negative); Non Pathogenic Casts 0-2; Protein Urine 1+ mg/dL (Negative); Specific Grav Ur 1.012 (1.001-1.035); Squamous Epithelial Cell Urine None Seen /hpf (Few); Urobilinogen Urine 0.2 mg/dL (<2.0); WBC Urine >100 /hpf (0-3); pH Urine 6.5 (5.0-9.0)
[2024-08-12 00:20] LABS: Basophils Percent Auto 0.5 % (0.2-1.2); Eosinophils Absolute Auto 0.3 K/mm3 (0-0.3); Eosinophils Percent Auto 4.3 % (0-4.4); Hematocrit 38.1 % (37.0-47.0); Hemoglobin 11.9 g/dL (12.0-15.0); Immature Granulocyte Absolute 0.03 K/mm3 (0.00-0.031); Immature Granulocyte Percent A 0.5 % (0-0.5); Lymphocytes Absolute Auto 1.48 K/mm3 (0.9-3.2); Lymphocytes Percent Auto 25.2 % (18.3-44.2); Mean Corpuscular HGB Conc 31.2 g/dl (32-36); Mean Corpuscular Hemoglobin 31.6 pg (26-34); Mean Corpuscular Volume 101.1 fl (80-100); Mean Platelet Volume 10.5 fl (7.4-10.4); Monocytes Absolute Auto 0.4 K/mm3 (0.1-0.6); Monocytes Percent Auto 7.5 % (2.6-8.5); Neutrophils Absolute Auto 3.7 K/mm3 (1.3-6.7); Platelet Count Result 179 k/mm3 (150-375); Red Blood Count 3.77 M/mm3 (4.2-5.4); Red Cell Distribution Width 15.4 % (11.5-14.5); White Blood Count 5.9 K/mm3 (4.5-10.0)
[2024-08-12 00:22] LABS: Alanine Aminotransferase 28 U/L (6-35); Albumin Level 3.9 g/dL (3.5-5.1); Alkaline Phosphatase 119 U/L (38-126); Anion Gap 7 mmol/L (4-12); Aspartate Amino Transferase 36 U/L (14-36); Bilirubin,Total 0.4 mg/dL (0.2-1.3); Blood Urea Nitrogen 54 mg/dL (7-17); Carbon Dioxide 32 mmol/L (22-30); Chloride 100 mmol/L (98-107); Estimated CRCL calculation 41 ml/min; Estimated Glomerular Filt Rate 30; Glucose 194 mg/dL (65-110); Potassium 4.2 mmol/L (3.4-5.0); Sodium 139 mmol/L (137-145)
[2024-08-12 00:56] VITALS: BP 132/70
[2024-08-12] MEDS: CEPHALEXIN 500 MG CAPSULE PO (01:04)
== END 2024-08-12 01:24 | disposition home or self-care (01) ==
PROVIDERS: Emergency Provider Student in an Organized Health Care Education/Training Program; PCP Family Medicine
DX: T83.511A Infection and inflammatory reaction due to indwelling urethral catheter, initial encounter (principal); E11.65 Type 2 diabetes mellitus with hyperglycemia; Z79.4 Long term (current) use of insulin; E03.9 Hypothyroidism, unspecified; G47.33 Obstructive sleep apnea (adult) (pediatric); Z99.89 Dependence on other enabling machines and devices; E55.9 Vitamin D deficiency, unspecified; E78.2 Mixed hyperlipidemia; N18.30 Chronic kidney disease, stage 3 unspecified; E11.22 Type 2 diabetes mellitus with diabetic chronic kidney disease; Z86.711 Personal history of pulmonary embolism; I12.9 Hypertensive chronic kidney disease with stage 1 through stage 4 chronic kidney disease, or unspecified chronic kidney disease
CPT/HCPCS: 36415; 51702; 80053; 81001; 85025; 87077; 87086; 87186; 99283; A9270

== ENCOUNTER 2024-08-31 10:06 | Inpatient (IN) | payer MEDICARE, OTHER, SELFPAY ==
[2024-08-31] VITALS (17 sets, daily range): BP systolic 87–157; BP diastolic 43–96; PULSE 70–86; RESP 15–22; TEMP 36.6–37.1; O2SAT 91–100; BMI 33.5; BMI 42.3
--- NOTE | ~2024-08-31 | XR_ITS ---
EXAMINATION: XR chest 2V DATE: 08/31/2024 11:56 INDICATION: Sepsis. Altered mental status. TECHNIQUE: frontal and lateral views of the chest were obtained. COMPARISON: Chest radiograph dated 03/23/2024 FINDINGS: Lung volumes remain small. Assessment on the lateral projection is significantly limited by patient b codey habitus. No focal airspace opacities, pulmonary edema, pleural effusion or pneumothorax. Heart si ze within normal limits for AP technique. IMPRESSION: 1. Small lung volumes. No acute cardiopulmonary disease. Reviewed, dictated and finalized at location A.
--- NOTE | 2024-08-31 10:22 | ECG_ITS ---
Test Date: 2024-08-31 10:54:17 Measurements Intervals [place] Rate: 71 P: 46 [place]: 198 QRS: 5 QRSD: 117 T: 23 QT: 395 QTc: 432 Interpretive Statements SINUS RHYTHM INTRAVENTRICULAR CONDUCTION DELAY CANNOT R/O SEPTAL INFARCT, AGE INDETERMINATE ST DEVIATION AND MODERATE T-WAVE ABNORMALITY, CONSIDER ANTERIOR ISCHEMIA ABNORMAL ECG Compared to ECG 03/23/2024 13:56:00 Intraventricular conduction delay now present Possible ischemia now present Electronically Signed On 08-31-2024 11:01:52 CDT by Bulmaro Knight D.O.
--- OUTSIDE RECORDS SUMMARY | 2024-08-31 10:23 | XMS_ITS ---
Author Name Auto Generated, Auto Generated Organization [facility] Address [address] [place] [address] Phone [phone] Care Team Providers Care Assurance Officer Name Role Phone Jacob Castro Unavailable AcCurtis Unavailable Functional Status No Results Mental Status [...] Daily DX Schizoaffective Disorder TueJun 18 09:35:00 ED2021Jun 23 01:00:00 EDT 2021 ondansetron 4 mg disintegrating tablet 4mg TABLET,DISINTEGRATING Oral PRN Every 6 Hours Nausea/Vomiting TueJun 18 15:00:00 ED2021Jun 23 01:00:00 ED2021 cloNIDine HCL 0.1 mg tablet 0.1mg TABLET Oral 3 Times Daily HTN TueJun 18 15:00:00 ED2021Jun 23 01:00:00 ED2021 lisinopriL 20 mg tablet 1 tab TABLET Ora l 1 Time Daily TueJun 18 09:00:00 ED2021Jun 23 01:00:00 ED2021 clotrimazole-betamethasone 1 %-0.05 % topical cream 1 application CREAM (GRAM) Topical 2 Times Daily Apply cream to buttocks BID for fungal rash TueJun 11 16:00:00 2021Jun 23 01:00:00 ED2021 memantine 10 mg tablet 1 tablet TABLET O ral Hour Of Sleep TueJun 11 01:00:00 2021Jun 23 01:00:00 2021 donepeziL 10 mg tablet 1 tablet TABLET O ral Hour Of Sleep TueJun 11 01:00:00 2021Jun 23 01:00:00 2021 Jardiance 25 mg tablet 1 tablet TABLET O ral 1 Time Daily TueJun 10 14:30:00 ED2021Jun 23 01:00:00 2021 Eliquis 2.5 mg tablet [...] and prn until healed TueJun 08 15:30:00 ED2021Jun 11 16:40:00 ED2021 acetaminophen 500 mg capsule 2 CAPS CAPSULE Oral PRN Every 6 Hours 2 [id number] *DO NOT EXCEED 3GM/DAY APAP FROM ALL SOURCES*DX PAIN TueJun 03 15:00:00 ED2021Jun 23 01:00:00 ED2021 TUBErsoL 5 tub. unit/0.1 mL intradermal injection solution 0.1 ml VIAL (ML) Intradermal 1 Time Weekly for 2 Weeks TueJun 03 19:00:00 ED2021Jun 17 18:59:00 EDT 2021 TUBErsoL 5 tub. unit/0.1 mL intradermal injection solution Read Results VIAL (ML) Other 1 Time Weekly for 2 Weeks Read results between 48-72 hours after 1st and 2nd (1 week apart).. TueJun 03 17:00:00 EDT 2021Jun 17 16:59:00 2021 amLODIPine 2.5 mg tablet 1 TAB TABLET Or al 1 Time Daily DX HYPERTENSION TueJun 03 15:00:00 ED2021Jun 23 01:00:00 2021 aspirin 81 mg tablet,delayed release 1 TAB TABLET, DELAYED RELEASE (ENTERIC COATED) Oral 2 Times Daily DX STROKE / CLOT PREVENTION TueJun 03 15:00:00 ED2021Jun 23 01:00:00 2021 atorvastatin 10 mg tablet [...] Daily DX MUSCLE SPASMS TueJun 03 15:00:00 ED2021Jun 23 01:00:00 ED2021 ergocalciferol (vitamin D2) 1,250 mcg (50,000 unit) capsule 1 CAP CAPSULE Oral 1 Time Weekly ON SUNDAYSDX SUPPLEMENT TueJun 07 01:00:00 ED2021Jun 23 01:00:00 2021 Farxiga 10 mg tablet 1 TAB TABLET Oral 1 Time Daily DX DMII TueJun 03 15:00:00 2021Jun 10 14:24:00 ED2021 ferrous sulfate 324 mg (65 mg iron) [...] IRRITATION TueJun 03 15:00:00 2021Jun 23 01:00:00 2021 oxyCODONE 5 mg tablet 1 TAB [...] Daily DX AGITATION TueJun 03 15:00:00 EDT 2021 Flor Mar 31 09:36:00 EDT 2021 ramelteon 8 mg tablet [...] 2021 * End Date: * Text: * jail (current) use of aspirin* Code: * Start Date: TueJun 03 00:00:00 EDT 2021 * End Date: * Text: * 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
--- OUTSIDE RECORDS SUMMARY | 2024-08-31 10:23 | XMS_ITS | Continuity of Care Document ---
Author Name [facility] Organization [facility] Care Team Providers Care House Parent Name Role Phone [facility] Unavailable Unavailable Problems Combined list of problems from [facility] and [facility] facilities. It does not include entries that were removed or entered in error. Problem Status Onset Date Problem Type Date of Resolution Comments Source Hyperlipidemia (SNOMED CT 31919926) Active Condition [facility] Seizures * Active Condition [facility] Allergies, Adverse Reactions, Alerts Combined list of allergies from [facility] facilities. It does not include entries that were removed or entered in error. Substance Category Reaction Severity Reaction type Status Date Reported Comments Source VANCOMYCIN Propensity to adverse reactions to drug (finding) Erythema active 3 [facility] Immunizations Combined list of available immunizations from the [facility] and [facility] facilities. Immunization Series Date Given Administered By Site Reaction Lot Number CVX Code Drug Behavior Support Specialist Status Comments Source INFLUENZA, UNSPECIFIED FORMULATION 2012 88 complet ed [facility] TDAP 2012 115 complet ed Right Deltoid [facility] Social History Combined list of available smoking, tobacco, and other social history from [facility] and [facility] facilities. Social History Type Response Date Comment Javier nelson Tobacco smoking status NHIS LIFETIME NON-USER OF TOBACCO 01/09/2013 [facility]
--- NOTE | 2024-08-31 10:31 | ED_ITS ---
HPI - General Adult General Chief complaint: Urogenital-Female Stated complaint: weakness, urinary retention, villa cath Time Seen by Provider: 08/31/24 10:12 History of Present Illness HPI narrative: 69-year-old female present to the emergency department for evaluation for increased generalized weakness and Villa catheter issue. Patient states she has had indwelling Villa catheter for approximately the last year. Patient reports her Villa catheter was last changed approximately 1 week ago. Patient reports over the last few days she has had decreased urinary output from the Villa catheter. Patient reports today she attempted to walk felt lightheaded dizzy and had increased generalized weakness. Patient denies any falls or injuries. Patient denies any chest pain or shortness of breath. Patient does have a prior history type 2 diabetes, chronic kidney disease, obesity, neuropathy, high cholesterol, neurogenic bladder, hypertension Related Data Home Medications ?Medication ?Instructions ?Recorded ?Confirmed ?Last Taken ?Type acetaminophen 500 mg tablet 1,000 mg PO BID Pain 07/10/20 08/31/24 08/31/24 History (Tylenol Extra Strength) multivit with minerals-iron 18 1 tablet PO DAILY 03/06/21 08/31/24 08/31/24 History mg-folic ac 400 mcg-vit K 25 mcg tablet (Adults Multivitamin) aspirin 81 mg tablet,delayed 81 mg PO Q12H 10/30/21 08/31/24 08/31/24 History release clotrimazole-betamethasone 1 1 applic topical BID 05/18/23 08/31/24 08/31/24 History %-0.05 % topical cream dextrin 3 gram/4 gram oral powder 2 tsp PO TID PRN Constipation 05/18/23 08/31/24 08/31/24 History (Clear Fiber) ferrous sulfate 325 mg (65 mg 325 mg PO DAILY 02/14/24 08/31/24 08/31/24 History iron) tablet lactobacillus combination no.9 1 cap PO HS 02/14/24 08/31/24 08/30/24 History nystatin 100,000 unit/gram topical 1 applic topical DAILY 02/14/24 08/31/24 08/31/24 History cream insulin lispro 100 unit/mL 8 unit subcut TIDWMEAL 07/31/24 08/31/24 08/31/24 History subcutaneous pen (Humalog KwikPen 3 unit (U-100) Insulin) solifenacin 5 mg tablet 5 mg PO DAILY 07/31/24 08/31/24 08/31/24 History apixaban 2.5 mg tablet (Eliquis) 2.5 mg PO Q12H 08/31/24 08/31/24 08/31/24 History icosapent ethyl 1 gram capsule 2 g PO Q12H 08/31/24 08/31/24 08/31/24 History (Vascepa) insulin glargine U-300 conc 300 50 unit subcut Q12H 08/31/24 08/31/24 08/31/24 History unit/mL (3 mL) subcutaneous pen (Toujeo Max U-300 SoloStar) lisinopril 5 mg tablet 5 mg PO HS 08/31/24 08/31/24 08/30/24 History quetiapine 50 mg tablet 50 mg PO Q12H 08/31/24 08/31/24 08/31/24 History rosuvastatin 20 mg tablet 20 mg PO HS 08/31/24 08/31/24 08/30/24 History tramadol 50 mg tablet 50 mg PO HS 08/31/24 08/31/24 08/30/24 History Allergies Allergy/AdvReac Type Severity Reaction Status Date / Time ciprofloxacin Allergy Mild Hives Verified 07/31/24 15:22 metronidazole Allergy Mild Hives Verified 07/31/24 15:22 divalproex sodium Allergy Unknown Unknown Verified 07/31/24 15:22 vancomycin Allergy Unknown Unknown Verified 07/31/24 15:22 Review of Systems 2 Review of Systems: All systems reviewed & are unremarkable except as noted in HPI and below PMFSH Past Medical History Medical History Hypothyroidism Mild cognitive impairment with memory loss Obstructive sleep apnea on CPAP Insulin dependent type 2 diabetes mellitus Chronic venous insufficiency Diabetic gastroparesis Chronic indwelling Villa catheter neurogenic bladder Dementia with behavioral disturbance Morbid obesity with BMI of 40.0-44.9, adult Vitamin D deficiency, unspecified Severe recurrent major depressive disorder with psychotic features Post-menopausal Polypharmacy Mixed hyperlipidemia Gout Dyskinesia, tardive Diabetic nephropathy associated with type 2 diabetes mellitus Depressive type psychosis Chronic pain disorder Chronic kidney disease, stage III (moderate) Benzodiazepine abuse, continuous Anxiety Antipsychotic-induced akathisia Pulmonary embolism (2020) Benign essential hypertension Brain hypoxia Chronic obstructive pulmonary disease Psychophysiological insomnia Surgical History Surgical History History of section History of hysterectomy History of back surgery Family History Family History Father Diabetes mellitus Hypertension Patient's father is , Onset Age: 75 Family history of renal failure Heart disease Cancer Mother Family history of malignant neoplasm of stomach Hypertension Cancer Thyroid disorder Sibling Depression Other Family history of arthritis Social History Social History Social History: At home she uses a walker and wheelchair to ambulate Surrogate medical decision maker: Serjio Michel, spouse. Code status: Full code. Smoking status: Never smoker Second hand tobacco smoke exposure: Yes Alcohol intake: never Substance use: never Substance use type: marijuana Other substance usage details: hx of marijuana use 2022 Do You Feel Safe in your Home?: Yes Lack of Transportation: No Lack of Food: Never True Current Housing: I Have Housing Concerned About Future Housing: No Difficulty Paying Gas/Electric Bills: No Difficulty Paying for Meds: No Currently Unemployed: No Education: High School Diploma/GED Difficulty w/ Childcare or Family Care: No Living arrangements: with family Additional living arrangements comments: She lives at home with her and 2 daughters. Her daughters help at night and she has caregivers as well. Occupation/Education: retired Spiritual care concerns: No Exam 2 Narrative: APPEARANCE: Ill-appearing HEAD: normocephalic, atraumatic. EYES: PERRLA/EOMI, conjunctivae clear. NOSE: Normal no drainage EARS:TMS clear with good light reflex. THROAT: Pharynx clear, no exudate. NECK: Supple. No adenopathy, no masses. RESPIRATORY: Airway patent, respirations nonlabored. Clear to auscultation bilaterally, no rales, rhonchi, wheezing. CARDIOVASCULAR: Regular rate and rhythm without murmurs rubs or gallops. ABDOMINAL: Soft, nontender, nondistended, normal bowel sounds MUSCULOSKELETAL: Moves all extremities. Strength/ROM intact, No edema, No calf tenderness. NEURO: Alert. Cranial nerves II through XII intact. Good gait. Good coordination SKIN: Warm, dry. Normal Color Course Vital Signs Vital signs: Vital Signs Temperature 98.8 F 08/31/24 10:19 Pulse Rate 77 08/31/24 10:19 Respiratory Rate 20 08/31/24 10:19 Blood Pressure 87/52 L 08/31/24 10:19 Pulse Oximetry 92 08/31/24 10:19 Oxygen Delivery Room Air 08/31/24 10:19 Temperature 98.3 F 08/31/24 13:55 Pulse Rate 79 08/31/24 16:00 Respiratory Rate 18 08/31/24 16:00 Blood Pressure 136/60 08/31/24 13:55 Pulse Oximetry 93 08/31/24 16:00 Oxygen Delivery Room Air 08/31/24 16:00 Oxygen Flow Rate 1 08/31/24 14:19 Medical Decision Making MDM Narrative Medical decision making narrative: 69-year-old female present presents emergency department for evaluation for generalized weakness. Patient is currently afebrile with no leukocytosis and hemoglobin of 10.3. INR is 1.7. Patient does have history of chronic kidney disease with acute kidney injury. CRP is elevated 23.5. Urine is concerning for urinary tract infection with greater than 100 white blood cells and high bacteria. Patient's Villa catheter was exchanged and patient does have recent urinary cultures showing she was positive for Klebsiella pneumonia a in the urine that was sensitive to Rocephin. Patient was started on Rocephin in the emergency department. Patient was treated with 2 L of IV fluids. Patient's blood pressure did improve. Patient did complain of some shortness of breath the patient's lungs were code auscultation chest x-ray showed no acute pneumonia. Patient did improve with 2 L of oxygen by nasal cannula. Patient blood pressure was significantly improved at time of admission. Case was discussed with hospitalist patient was transferred to the IMU. Differential Diagnosis Differential Diagnosis: UTI, COVID, RSV, influenza Vital Signs Vital Signs: Vital Signs Temperature 98.8 F 08/31/24 10:19 Pulse Rate 77 08/31/24 10:19 Respiratory Rate 20 08/31/24 10:19 Blood Pressure 87/52 L 08/31/24 10:19 Pulse Oximetry 92 08/31/24 10:19 Oxygen Delivery Room Air 08/31/24 10:19 Temperature 98.3 F 08/31/24 13:55 Pulse Rate 79 06/13/25 16:00 Respiratory Rate 18 08/31/24 16:00 Blood Pressure 136/60 08/31/24 13:55 Pulse Oximetry 93 08/31/24 16:00 Oxygen Delivery Room Air 08/31/24 16:00 Oxygen Flow Rate 1 08/31/24 14:19 Lab Data Lab results reviewed: Yes I reviewed the patient's lab results. 08/31/24 11:11 08/31/24 11:11 Labs: Lab Results 08/31/24 Range/Units 11:11 WBC 7.5 (4.5-10.0) K/mm3 RBC 3.27 L (4.2-5.4) M/mm3 Hgb 10.3 L (12.0-15.0) g/dL Hct 33.3 L (37.0-47.0) % MCV 101.8 H (80-100) fl MCH 31.5 (26-34) pg MCHC 30.9 L (32-36) g/dl RDW 16.2 H (11.5-14.5) % Plt Count 180 (150-375) k/mm3 MPV 11.3 H (7.4-10.4) fl Immature Gran % (Auto) 0.4 (0-0.5) % Neut % (Auto) 72.6 (45.5-73.1) % Lymph % (Auto) 15.3 L (18.3-44.2) % [place] % (Auto) 7.7 (2.6-8.5) % Eos % (Auto) 3.7 (0-4.4) % Baso % (Auto) 0.3 (0.2-1.2) % Lymph # (Auto) 1.15 (0.9-3.2) K/mm3 [place] # (Auto) 0.6 (0.1-0.6) K/mm3 Eos # (Auto) 0.3 (0-0.3) K/mm3 Baso # (Auto) 0.0 (0.0-0.1) K/mm3 Abs Immat Gran (auto) 0.03 (0.00-0.031) K/mm3 Absolute Neuts (auto) 5.5 (1.3-6.7) K/mm3 Absolute Nucleated RBC 0.000 (0.0-0.012) K/mm3 Nucleated RBC % 0.0 (0.0-0.2) % PT 19.4 H (11.1-14.7) Seconds INR 1.7 APTT 39.6 H (22.3-36.8) Seconds Sodium 137 (137-145) mmol/L Potassium 4.8 (3.4-5.0) mmol/L Chloride 100 (98-107) mmol/L Carbon Dioxide 30 (22-30) mmol/L Anion Gap 7 (4-12) mmol/L BUN 67 H D (7-17) mg/dL Creatinine 3.29 H (0.7-1.0) mg/dL Estim Creat Clear Calc 21 ml/min Estimated GFR 14 L (59 - ) Glucose 254 H (65-110) mg/dL Lactic Acid 1.7 (0.7-2.0) mmol/L Calcium 9.6 (8.4-10.2) mg/dL Total Bilirubin 0.9 (0.2-1.3) mg/dL AST 183 H (14-36) U/L ALT 121 H (6-35) U/L Alkaline Phosphatase 125 (38-126) U/L C-Reactive Protein 23.5 H (<1.0) mg/dL Total Protein 6.6 (6.3-8.2) g/dL Albumin 3.4 L (3.5-5.1) g/dL Urine Color Yellow (Yellow) Urine Appearance Turbid H (Clear) Urine pH 7.0 (5.0-9.0) Ur Specific [place] 1.017 (1.001-1.035) Urine Protein 3+ H (Negative) mg/dL Urine Glucose (UA) Negative (Negative) mg/dL Urine Ketones Trace H (Negative) mg/dL Ur Blood (Man) 3+ H (Negative) Urine Nitrate Negative (Negative) Urine Bilirubin Negative (Negative) Urine Urobilinogen 0.2 (<2.0) mg/dL Add Ur Microanalysis Reviewed Leukocyte Esterase Rfl 3+ H (Negative) ARTURO/UL Urine RBC 21-50 H (0-2) /hpf Urine WBC >100 H (0-3) /hpf Ur Squamous Epith Cells Moderate (Few) /hpf Urine Bacteria 4+ /hpf Urine Casts >20 Imaging Data Radiologist's impression: Impressions Chest X-Ray 08/31/24 12:18 IMPRESSION: 1. Small lung volumes. No acute cardiopulmonary disease. Discharge Plan Discharge Clinical Impression: SCAR (acute kidney injury), Acute UTI, Acute dyspnea Patient Disposition: Still a Patient Condition: Serious
[2024-08-31] MEDS: LACTATED RINGERS 1,000 ML 999 ML IV CONT ×2 (10:57→11:55)
[2024-08-31 11:29] LABS: Lactic Acid Reflex 1.7 mmol/L (0.7-2.0)
[2024-08-31 11:31] LABS: Add Urine Microscopic? YES; Alanine Aminotransferase 121 U/L (6-35); Albumin Level 3.4 g/dL (3.5-5.1); Alkaline Phosphatase 125 U/L (38-126); Anion Gap 7 mmol/L (4-12); Appearance Urine Turbid (Clear); Aspartate Amino Transferase 183 U/L (14-36); Bacteria Urine 4+ /hpf; Bilirubin Urine Negative (Negative); Bilirubin,Total 0.9 mg/dL (0.2-1.3); Blood Urea Nitrogen 67 mg/dL (7-17); Blood Urine 3+ (Negative); Calcium 9.6 mg/dL (8.4-10.2); Carbon Dioxide 30 mmol/L (22-30); Chloride 100 mmol/L (98-107); Color Urine Yellow (Yellow); Estimated CRCL calculation 21 ml/min; Estimated Glomerular Filt Rate 14; Glucose 254 mg/dL (65-110); Glucose Urine UA Negative (Negative); Ketones Urine Trace mg/dL (Negative); Leukocyte Esterase Ur 3+ LEU/UL (Negative); Need Manual Microscopic Reviewed; Nitrate Urine Negative (Negative); Non Pathogenic Casts >20; Potassium 4.8 mmol/L (3.4-5.0); Protein Urine 3+ mg/dL (Negative); RBC Urine 21-50 /hpf (0-2); Sodium 137 mmol/L (137-145); Specific Grav Ur 1.017 (1.001-1.035); Squamous Epithelial Cell Urine Moderate /hpf (Few); Total Protein 6.6 g/dL (6.3-8.2); Urobilinogen Urine 0.2 mg/dL (<2.0); WBC Urine >100 /hpf (0-3)
[2024-08-31 11:34] LABS: Basophils Percent Auto 0.3 % (0.2-1.2); Eosinophils Absolute Auto 0.3 K/mm3 (0-0.3); Eosinophils Percent Auto 3.7 % (0-4.4); Hematocrit 33.3 % (37.0-47.0); Hemoglobin 10.3 g/dL (12.0-15.0); Immature Granulocyte Absolute 0.03 K/mm3 (0.00-0.031); Immature Granulocyte Percent A 0.4 % (0-0.5); Lymphocytes Absolute Auto 1.15 K/mm3 (0.9-3.2); Lymphocytes Percent Auto 15.3 % (18.3-44.2); Mean Corpuscular HGB Conc 30.9 g/dl (32-36); Mean Corpuscular Hemoglobin 31.5 pg (26-34); Mean Corpuscular Volume 101.8 fl (80-100); Mean Platelet Volume 11.3 fl (7.4-10.4); Monocytes Absolute Auto 0.6 K/mm3 (0.1-0.6); Monocytes Percent Auto 7.7 % (2.6-8.5); Neutrophils Absolute Auto 5.5 K/mm3 (1.3-6.7); Neutrophils Percent Auto 72.6 % (45.5-73.1); Platelet Count Result 180 k/mm3 (150-375); Red Blood Count 3.27 M/mm3 (4.2-5.4); Red Cell Distribution Width 16.2 % (11.5-14.5); White Blood Count 7.5 K/mm3 (4.5-10.0)
[2024-08-31 11:36] LABS: INR 1.7; Prothrombin Time 19.4 Seconds (11.1-14.7)
[2024-08-31 11:37] LABS: Partial Thromboplastin Time 39.6 Seconds (22.3-36.8)
--- NOTE | 2024-08-31 12:17 | ECG_ITS ---
Test Date: 2024-08-31 12:21:16 Measurements Intervals [place] Rate: 76 P: 30 PA: 188 QRS: -11 QRSD: 110 T: 16 QT: 394 QTc: 444 Interpretive Statements SINUS RHYTHM INTRAVENTRICULAR CONDUCTION DELAY BORDERLINE R WAVE PROGRESSION, ANTERIOR LEADS MODERATE T-WAVE ABNORMALITY, CONSIDER ANTERIOR ISCHEMIA ABNORMAL ECG Compared to ECG 08/31/2024 10:54:17 NO SIGNIFICANT CHANGE Electronically Signed On 08-31-2024 13:19:07 CDT by Bulmaro Knight D.O.
[2024-08-31 12:34] LABS: CRP 23.5 mg/dL (<1.0)
--- NOTE | 2024-08-31 12:44 | PC.NURSE ---
12:17 Daughter approached RN at desk stating her mother felt funny and her heart was racing. RN walking into room, patients HR at 81, o2 sats 80%. RN placed patient on 5L NC and did an EKG. 12:49 Patient states she is feeling better. RN has decreased 5L to 1L. Patient is not sating 95% on 1L NC.
--- NOTE | 2024-08-31 13:09 | P.HP_ITS ---
H&P: HPI History of Present Illness Date/Time: 08/31/24 13:09 Chief Complaint: Shortness of breath Narrative: 69-year-old female psychophysiological insomnia, hypertension, CKD stage 3, diabetes type 2, polypharmacy, neurogenic bladder with chronic Vigil, mild cognitive impairment with memory loss presents the hospital with shortness of breath. Patient is A&O x4 however she does not know what medication she is on are why she is on them. Patient complains of shortness of breath, generalized weakness and issue with Vigil catheter in the ED. on bedside exam patient states she is only short of breath with activities, and complains of her eyeballs however she cannot describe any symptoms. When asked if it is chronic she says yes. HPI is limited. Lab work shows anemia at 10.3, BUN of 67 creatinine of 3.29 previous creatinine being 1.67, glucose of 254, is to 183, ALT to 121 C-reactive protein 23.5 UA shows 3+ leukocyte esterase over 100 wbc's 4+ bacteria. Chest x-ray shows small lung volumes with no acute process. EKG shows sinus rhythm moderate T-wave abnormalities, rate of 76, QTC of 444. Patient given 2 L fluid bolus and started on Rocephin in the emergency room. Review of Systems Review of Systems: 12 systems were reviewed and are negativ e except for as per HPI. [facility] Past Medical History Medical History Hypothyroidism Mild cognitive impairment with memory loss Obstructive sleep apnea on CPAP Insulin dependent type 2 diabetes mellitus Chronic venous insufficiency Diabetic gastroparesis Chronic indwelling Vigil catheter neurogenic bladder Dementia with behavioral disturbance Morbid obesity with BMI of 40.0-44.9, adult Vitamin D deficiency, unspecified Severe recurrent major depressive disorder with psychotic features Post-menopausal Polypharmacy Mixed hyperlipidemia Gout Dyskinesia, tardive Diabetic nephropathy associated with type 2 diabetes mellitus Depressive type psychosis Chronic pain disorder Chronic kidney disease, stage III (moderate) Benzodiazepine abuse, continuous Anxiety Antipsychotic-induced akathisia Pulmonary embolism (2020) Benign essential hypertension Brain hypoxia Chronic obstructive pulmonary disease Psychophysiological insomnia Surgical History Surgical History History of section History of hysterectomy History of back surgery Family History Family History Father Diabetes mellitus Hypertension Patient's father is , Onset Age: 75 Family history of renal failure Heart disease Cancer Mother Family history of malignant neoplasm of stomach Hypertension Cancer Thyroid disorder Sibling Depression Other Family history of arthritis Social History Social History Social History: At home she uses a walker and wheelchair to ambulate Surrogate medical decision maker: Serjio Sorianot, spouse. Code status: Full code. Smoking status: Never smoker Second hand tobacco smoke exposure: Yes Alcohol intake: never Substance use: never Substance use type: marijuana Other substance usage details: hx of marijuana use 2022 Do You Feel Safe in your Home?: Yes Lack of Transportation: No Lack of Food: Never True Current Housing: I Have Housing Concerned About Future Housing: No Difficulty Paying Gas/Electric Bills: No Difficulty Paying for Meds: No Currently Unemployed: No Education: High School Diploma/GED Difficulty w/ Childcare or Family Care: No Living arrangements: with family Additional living arrangements comments: She lives at home with her and 2 daughters. Her daughters help at night and she has caregivers as well. Occupation/Education: retired Spiritual care concerns: No Meds Home Medications and Allergies Home Medications ?Medication ?Instructions ?Recorded ?Confirmed ?Type acetaminophen 500 mg tablet 1,000 mg PO BID Pain 07/10/20 08/31/24 History (Tylenol Extra Strength) multivit with minerals-iron 18 1 tablet PO DAILY 03/06/21 08/31/24 History mg-folic ac 400 mcg-vit K 25 mcg tablet (Adults Multivitamin) aspirin 81 mg tablet,delayed 81 mg PO Q12H 10/30/21 08/31/24 History release clotrimazole-betamethasone 1 1 applic topical BID 05/18/23 08/31/24 History %-0.05 % topical cream dextrin 3 gram/4 gram oral powder 2 tsp PO TID PRN Constipation 05/18/23 08/31/24 History (Clear Fiber) ferrous sulfate 325 mg (65 mg 325 mg PO DAILY 02/14/24 08/31/24 History iron) tablet lactobacillus combination no.9 1 cap PO HS 02/14/24 08/31/24 History nystatin 100,000 unit/gram topical 1 applic topical DAILY 02/14/24 08/31/24 History cream furosemide 40 mg tablet See Rx Instructions .Route 03/27/24 08/31/24 Rx .COMPLEX #90 tabs benztropine 0.5 mg tablet See Rx Instructions .Route 04/13/24 08/31/24 Rx .COMPLEX #270 tabs blood-glucose,receiver dispatcher,cont #1 ea 04/13/24 08/31/24 Rx (FreeStyle Mohan 3 [place]) lactulose 10 gram/15 mL oral 15 ml PO BID PRN Constipation 04/13/24 08/31/24 Rx solution #3,785 mL metoprolol tartrate 50 mg tablet 50 mg PO Q12H #60 tabs 05/21/24 08/31/24 Rx pen needle, diabetic 31 gauge x #400 ea 06/04/24 08/31/24 Rx 08/03 Mounjaro 2.5 mg/0.5 mL 2.5 mg (0.5 mL) subcut WEEKLY #2 mL 06/06/24 08/31/24 Rx subcutaneous pen injector (tirzepatide) clonidine HCl 0.1 mg tablet See Rx Instructions .Route 06/08/24 08/31/24 Rx .COMPLEX #180 tabs duloxetine 30 mg capsule,delayed 30 mg PO QHS #90 caps 06/26/24 08/31/24 Rx release pregabalin 100 mg capsule 100 mg PO TID #90 caps 07/10/24 08/31/24 Rx blood-glucose sensor (FreeStyle #1 ea 07/30/24 08/31/24 Rx Mohan 3 Sensor device) insulin lispro 100 unit/mL 8 unit subcut TIDWMEAL 07/31/24 08/31/24 History subcutaneous pen (Humalog KwikPen (U-100) Insulin) solifenacin 5 mg tablet 5 mg PO DAILY 07/31/24 08/31/24 History cholecalciferol (vitamin D3) 1,250 See Rx Instructions .Route 08/03/24 08/31/24 Rx mcg (50,000 unit) capsule .COMPLEX #12 caps cephalexin 500 mg capsule 500 mg PO Q6H 5 days #20 caps 08/12/24 08/31/24 Rx memantine ER 28 mg-donepezil 10 mg See Rx Instructions .Route 08/20/24 08/31/24 Rx capsule sprinkle,ext.release 24 hr .COMPLEX #90 caps (Namzaric) blood-glucose sensor (FreeStyle #2 ea 08/24/24 08/31/24 Rx Mohan 3 Plus Sensor device) apixaban 2.5 mg tablet (Eliquis) 2.5 mg PO Q12H 08/31/24 08/31/24 History icosapent ethyl 1 gram capsule 2 g PO Q12H 08/31/24 08/31/24 History (Vascepa) insulin glargine U-300 conc 300 50 unit subcut Q12H 08/31/24 08/31/24 History unit/mL (3 mL) subcutaneous pen (Toujeo Max U-300 SoloStar) lisinopril 5 mg tablet 5 mg PO HS 08/31/24 08/31/24 History quetiapine 50 mg tablet 50 mg PO Q12H 08/31/24 08/31/24 History rosuvastatin 20 mg tablet 20 mg PO HS 08/31/24 08/31/24 History tramadol 50 mg tablet 50 mg PO HS 08/31/24 08/31/24 History Allergies Allergy/AdvReac Type Severity Reaction Status Date / Time ciprofloxacin Allergy Mild Hives Verified 07/31/24 15:22 metronidazole Allergy Mild Hives Verified 07/31/24 15:22 divalproex sodium Allergy Unknown Unknown Verified 07/31/24 15:22 vancomycin Allergy Unknown Unknown Verified 07/31/24 15:22 Vital Signs Vital Signs - 24 hr 08/31/24 10:19 08/31/24 10:30 08/31/24 11:00 Temperature 98.8 F 98.0 F Pulse Rate 77 74 72 Respiratory Rate 20 15 17 Blood Pressure 87/52 L 88/49 L 111/62 Pulse Oximetry 92 92 92 Oxygen Delivery Room Air 08/31/24 11:30 Temperature Pulse Rate 70 Respiratory Rate 15 Blood Pressure 122/71 Pulse Oximetry 100 Oxygen Delivery Exam Narrative: General: Chronically ill HEENT: normocephalic, atraumatic. Mucous membranes moist. EOMI, PERRLA, bilateral sclera anicteric, no conjunctival injection. Neck supple without JVD, lymphadenopathy, or bruit. Respiratory: Diminished to ascultation bilaterally. No rales/rhonic/wheezes. Cardiovascular: Regular rate and rhythm, normal S1-S2 upon ascultation. No murmurs, rubs, or clicks. PMI is nondisplaced, capillary refill less than 3 second. Abdomen: Soft, round, no pulsatile masses, nondistended and nontender. No rebound, no guarding. No CVA tenderness, no hepatosplenomegaly. Bowel sounds present to all four quadrants. No high pitch or tinkling sounds, resonant to percussion. Extremities: No cyanosis, clubbing, . Pulses are palpable 2/2. Active ROM to all four extremities. +to 3 pedal edema Neuro: Alert and orientated x 4. PERRLA. Cranial nerves 2-12 intact without focal deficit. Skin: Warm, dry, and intact, without rash, erythema, or lesion. Psych: pleasant, cooperative, normal speech, normal affect, no hallucinations, no dysarthia 2 L O2 Chronic Vigil H&P: Results Labs Labs: Short CBC 08/31/24 Range/Units 11:11 WBC 7.5 (4.5-10.0) K/mm3 Hgb 10.3 L (12.0-15.0) g/dL Hct 33.3 L (37.0-47.0) % Plt Count 180 (150-375) k/mm3 BMP 08/31/24 11:11 Sodium 137 Potassium 4.8 Chloride 100 Carbon Dioxide 30 BUN 67 H D Creatinine 3.29 H Glucose 254 H Calcium 9.6 Liver Function 08/31/24 Range/Units 11:11 Total Bilirubin 0.9 (0.2-1.3) mg/dL AST 183 H (14-36) U/L ALT 121 H (6-35) U/L Alkaline Phosphatase 125 (38-126) U/L Albumin 3.4 L (3.5-5.1) g/dL Urine 08/31/24 Range/Units 11:11 Urine Color Yellow (Yellow) Urine Appearance Turbid H (Clear) Urine pH 7.0 (5.0-9.0) Ur Specific [place] 1.017 (1.001-1.035) Urine Protein 3+ H (Negative) mg/dL Urine Glucose (UA) Negative (Negative) mg/dL Assessment and Plan Assessment and plan (1) Acute UTI: Code(s): N39.0 - Urinary tract infection, site not specified Status: Acute Assessment and Plan: Chronic Vigil exchanged in emergency room Started on Rocephin Culture and sensitivity pending IVF. Due to lower extremity edema (2) Acute kidney injury superimposed on CKD: Code(s): N17.9 - Acute kidney failure, unspecified; N18.9 - Chronic kidney disease, unspecified Status: Acute Assessment and Plan: Fluid bolus given in ED BMP in morning Hold lisinopril Patient is on home Lasix with pedal edema, lung sounds clear she states she does not know why she is on it, currently being held due to SCAR (3) HTN (hypertension), benign: Code(s): I10 - Essential (primary) hypertension Status: Chronic Assessment and Plan: Holding lisinopril Continue clonidine (4) Insulin dependent type 2 diabetes mellitus: Code(s): E11.9 - Type 2 diabetes mellitus without complications; Z79.4 - custodial (current) use of insulin Status: Acute Assessment and Plan: Patient's home dose of Lantus is 50 b.i.d. and aspart are 8 units per meal Accu-Cheks a.c. HS Diabetic diet 40 units of Lantus ordered, 5 units of aspart per meal and sliding scale Adjust as needed (5) Chronic indwelling Vigil catheter: Code(s): Z97.8 - Presence of other specified devices Status: Acute Assessment and Plan: Exchanged in the ED Possible fall positive UTI Culture and sensitivity pending IV Rocephin (6) MALIA on CPAP: Code(s): G47.33 - Obstructive sleep apnea (adult) (pediatric); Z99.89 - Dependence on other enabling machines and devices Status: Chronic Assessment and Plan: CPAP ordered (7) Neuroleptic-induced tardive dyskinesia: Code(s): G24.01 - Drug induced subacute dyskinesia; T43.505A - Adverse effect of unspecified antipsychotics and neuroleptics, initial encounter Status: Acute Assessment and Plan: Continue benstropine Quality VTE Prophylaxis VTE prophylaxis: mechanical ordered and pharmacologic ordered Hospitalist [facility] Advance Care Plan I have confirmed that the patient's Advanced Care Plan is present, code status is documented, or surrogate decision maker is listed in patient medical record.: Yes Medication Reconciliation I have utilized all available resources to obtain, update and review the patients current medications (includes all prescriptions, OTC, herbals, cannabis, and nutritional supplements).: Yes
--- NOTE | 2024-08-31 14:16 | ADMGEN ---
This patient, Christine Michel, was admitted to IMU Room 211-01. Patient/family oriented to hospital policies and general routines including ID bracelet, bed and alarms, visiting hours, pain management, procedures, bathroom and other care routines, personal items, smoking policy, room service/diet, and visiting hours. Information on how to activate the Rapid Response Team has been discussed. Patient/Family are encouraged to report perceived risks to care and to ask questions if they do not understand what they are told or what they should do.
[2024-08-31 16:34] LABS: Glucose Point of Care 220 mg/dl (65-105)
--- NOTE | 2024-08-31 18:13 | PC.NURSE ---
Addendum entered by Nyasia Galvan RN 08/31/24 18:15: This all took place at 1635 Original Note: This RN notified Jessica Dominguez NP of pt's blood glucose of 220, and that pt has no medications ordered at this time. I will look into her chart and place some orders.
[2024-08-31 19:33] LABS: Anion Gap 7 mmol/L (4-12); Blood Urea Nitrogen 67 mg/dL (7-17); Calcium 9.6 mg/dL (8.4-10.2); Carbon Dioxide 29 mmol/L (22-30); Chloride 100 mmol/L (98-107); Estimated CRCL calculation 20 ml/min; Estimated Glomerular Filt Rate 15; Glucose 232 mg/dL (65-110); Potassium 4.7 mmol/L (3.4-5.0); Sodium 136 mmol/L (137-145)
[2024-08-31] MEDS: INSULIN GLARGINE (*BKC) 100 UNITS/ML 40 UNITS SUB-Q (20:31)
[2024-08-31] MEDS: INSULIN ASPART (*BKC) 100 UNITS/ML SUB-Q (20:35)
[2024-08-31] MEDS: DULoxetine HCL 30 MG CAPSULE.DR PO (20:38)
[2024-08-31] MEDS: QUEtiapine FUMARATE 25 MG TABLET 50 MG PO (20:40)
[2024-08-31] MEDS: ASPIRIN 81 MG ENTERIC TABLET PO (20:41)
[2024-08-31] MEDS: ROSUVASTATIN 20 MG TABLET PO (20:41)
[2024-08-31] MEDS: METOPROLOL TARTRATE 50 MG TAB PO (20:42)
[2024-08-31] MEDS: APIXABAN 2.5 MG TABLET PO (20:42)
[2024-09-01] VITALS (14 sets, daily range): BP systolic 153–179; BP diastolic 53–82; PULSE 64–74; RESP 16–20; TEMP 36.4–36.8; O2SAT 96–100
[2024-09-01 04:51] LABS: Basophils Percent Auto 0.4 % (0.2-1.2); Eosinophils Absolute Auto 0.3 K/mm3 (0-0.3); Eosinophils Percent Auto 5.7 % (0-4.4); Hematocrit 32.1 % (37.0-47.0); Hemoglobin 9.6 g/dL (12.0-15.0); Immature Granulocyte Absolute 0.01 K/mm3 (0.00-0.031); Immature Granulocyte Percent A 0.2 % (0-0.5); Lymphocytes Absolute Auto 1.29 K/mm3 (0.9-3.2); Lymphocytes Percent Auto 28.4 % (18.3-44.2); Mean Corpuscular HGB Conc 29.9 g/dl (32-36); Mean Corpuscular Hemoglobin 30.7 pg (26-34); Mean Corpuscular Volume 102.6 fl (80-100); Mean Platelet Volume 11.2 fl (7.4-10.4); Monocytes Absolute Auto 0.4 K/mm3 (0.1-0.6); Neutrophils Absolute Auto 2.6 K/mm3 (1.3-6.7); Neutrophils Percent Auto 56.3 % (45.5-73.1); Platelet Count Result 149 k/mm3 (150-375); Red Blood Count 3.13 M/mm3 (4.2-5.4); Red Cell Distribution Width 16.3 % (11.5-14.5); White Blood Count 4.5 K/mm3 (4.5-10.0)
[2024-09-01 05:12] LABS: Anisocytosis 1+; Band Neutrophils Percent 0 % (0-6); Burr Cells 1+; Platelet Estimate Adequate (Adequate); Schistocytes None Seen
[2024-09-01 08:42] LABS: Alanine Aminotransferase 115 U/L (6-35); Albumin Level 3.3 g/dL (3.5-5.1); Alkaline Phosphatase 123 U/L (38-126); Anion Gap 7 mmol/L (4-12); Aspartate Amino Transferase 109 U/L (14-36); Bilirubin,Total 0.5 mg/dL (0.2-1.3); Blood Urea Nitrogen 68 mg/dL (7-17); Calcium 9.7 mg/dL (8.4-10.2); Carbon Dioxide 30 mmol/L (22-30); Chloride 102 mmol/L (98-107); Estimated CRCL calculation 23 ml/min; Estimated Glomerular Filt Rate 15; Glucose 168 mg/dL (65-110); Potassium 4.3 mmol/L (3.4-5.0); Sodium 139 mmol/L (137-145); Total Protein 6.4 g/dL (6.3-8.2)
[2024-09-01 08:45] LABS: Glucose Point of Care 175 mg/dl (65-105)
[2024-09-01] MEDS: INSULIN ASPART (*BKC) 100 UNITS/ML SUB-Q ×6 (09:04→21:02)
[2024-09-01] MEDS: QUEtiapine FUMARATE 25 MG TABLET 50 MG PO ×2 (09:05→21:03)
[2024-09-01] MEDS: ASPIRIN 81 MG ENTERIC TABLET PO ×2 (09:05→21:03)
[2024-09-01] MEDS: cloNIDine HCL 0.1 MG TABLET BY MOUTH ×2 (09:05→21:03)
[2024-09-01] MEDS: PREGABALIN (*CRX) 50 MG CAPSULE 100 MG PO ×3 (09:05→17:31)
[2024-09-01] MEDS: BENZTROPINE MESYLATE 0.5 MG TABLET BY MOUTH ×3 (09:05→17:31)
[2024-09-01] MEDS: SOLIFENACIN 5 MG TABLET PO (09:05)
[2024-09-01] MEDS: APIXABAN 2.5 MG TABLET PO ×2 (09:05→21:03)
[2024-09-01] MEDS: METOPROLOL TARTRATE 50 MG TAB PO ×2 (09:05→21:03)
--- NOTE | 2024-09-01 09:46 | P.PNIM_ITS ---
Progress Note: A&P Assessment and Plan (1) Acute UTI: Code(s): N39.0 - Urinary tract infection, site not specified Status: Acute Assessment and Plan: Chronic Vigil exchanged in emergency room Started on Rocephin Culture and sensitivity pending Will give gentle IV fluid (2) Acute kidney injury superimposed on CKD: Code(s): N17.9 - Acute kidney failure, unspecified; N18.9 - Chronic kidney disease, unspecified Status: Acute Assessment and Plan: Fluid bolus given in ED Creatinine 3.29 on admission baseline around mid 1s. 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 and aspart are 8 units per meal Accu-Cheks a.c. HS Diabetic diet 40 units of Lantus ordered, 5 units of aspart per meal and sliding scale Adjust as needed (5) Chronic indwelling Vigil catheter: Code(s): Z97.8 - Presence of other specified devices Status: Acute Assessment and Plan: Exchanged in the ED Possible fall positive UTI Culture and sensitivity pending IV Rocephin (6) MALIA on CPAP: Code(s): G47.33 - Obstructive sleep apnea (adult) (pediatric); Z99.89 - Dependence on other enabling machines and devices Status: Chronic Assessment and Plan: CPAP ordered (7) Neuroleptic-induced tardive dyskinesia: Code(s): G24.01 - Drug induced subacute dyskinesia; T43.505A - Adverse effect of unspecified antipsychotics and neuroleptics, initial encounter Status: Acute Assessment and Plan: Continue benstropine Plan Hypoxia at night will check ApneaLink DVT prophylaxis on apixaban Subjective Date/time seen: 09/01/24 09:46 Interval history: chart reviewed. labs reviewed. discussed with nursing staff. Feels dry and has mouth. Review of Systems Review of Systems: All systems reviewed & are unremarkable except as noted in HPI and below Exam Narrative: General: Chronically ill HEENT: normocephalic, atraumatic. Mucous membranes dry. EOMI, PERRLA, Respiratory: Diminished breath sounds to ascultation bilaterally. No rales/rhonic/wheezes. Cardiovascular: Regular rate and rhythm, normal S1-S2 upon ascultation. Abdomen: Soft, round, no pulsatile masses, nondistended and nontender. Extremities: No cyanosis, clubbing, . Pulses are palpable 2/2. Active ROM to all four extremities. Neuro: Alert and orientated x 4. PERRLA. Cranial nerves 2-12 intact without focal deficit. Skin: Warm, dry, and intact, without rash, erythema, or lesion. Psych: pleasant, cooperative, normal speech, normal affect, no hallucinations, no dysarthia Chronic Vigil Objective Data Vital Signs Vital Signs: Vital Signs - 24 hr 08/31/24 10:19 08/31/24 10:30 08/31/24 11:00 Temperature 98.8 F 98.0 F Pulse Rate 77 74 72 Respiratory Rate 20 15 17 Blood Pressure 87/52 L 88/49 L 111/62 Pulse Oximetry 92 92 92 Oxygen Delivery Room Air Oxygen Flow Rate 08/31/24 11:30 08/31/24 12:39 08/31/24 12:48 Temperature Pulse Rate 70 75 75 Respiratory Rate 15 18 16 Blood Pressure 122/71 Pulse Oximetry 100 94 Oxygen Delivery Oxygen Flow Rate 08/31/24 13:00 08/31/24 13:17 08/31/24 13:55 Temperature 97.8 F 98.3 F Pulse Rate 73 73 78 Respiratory Rate 18 15 22 H Blood Pressure 126/60 129/86 136/60 Pulse Oximetry 98 95 96 Oxygen Delivery Oxygen Flow Rate 08/31/24 14:00 08/31/24 14:19 08/31/24 16:00 Temperature Pulse Rate 76 76 75 Respiratory Rate 16 18 Blood Pressure Pulse Oximetry 96 93 Oxygen Delivery Nasal Cannula Room Air Oxygen Flow Rate 1 08/31/24 16:00 08/31/24 16:00 08/31/24 18:00 Temperature 98 F Pulse Rate 79 77 85 Respiratory Rate 18 Blood Pressure 131/96 H Pulse Oximetry 91 Oxygen Delivery Oxygen Flow Rate 08/31/24 20:00 08/31/24 20:00 08/31/24 20:00 Temperature 98.5 F Pulse Rate 78 85 Respiratory Rate 20 Blood Pressure 157/43 H Pulse Oximetry 96 94 Oxygen Delivery Nasal Cannula Oxygen Flow Rate 1 08/31/24 20:42 08/31/24 22:00 08/31/24 23:37 Temperature Pulse Rate 86 76 79 Respiratory Rate Blood Pressure 157/52 H Pulse Oximetry 98 Oxygen Delivery Oxygen Flow Rate 09/01/24 00:00 09/01/24 00:00 09/01/24 02:00 Temperature Pulse Rate 70 72 Respiratory Rate Blood Pressure Pulse Oximetry 97 Oxygen Delivery Nasal Cannula Oxygen Flow Rate 1 09/01/24 03:57 09/01/24 04:00 09/01/24 04:00 Temperature 97.9 F Pulse Rate 73 73 Respiratory Rate 17 Blood Pressure 154/55 H Pulse Oximetry 97 97 Oxygen Delivery Nasal Cannula Oxygen Flow Rate 1 09/01/24 06:00 09/01/24 08:00 09/01/24 09:05 Temperature 97.7 F Pulse Rate 71 71 74 Respiratory Rate 20 Blood Pressure 168/53 H Pulse Oximetry 98 Oxygen Delivery Oxygen Flow Rate Intake/Output Intake/Output: Intake & Output 08/29/24 08/30/24 08/31/24 09/01/24 23:59 23:59 23:59 23:59 Intake Total 2650 Output Total 250 375 Balance 2400 -375 Meds/Results Medications: Active Medications Generic Name Dose Route Start Last Admin Trade Name Freq PRN Reason Stop Dose Admin Acetaminophen 650 mg 08/31/24 18:44 Acetaminophen 325 Mg Tablet PO Q4H PRN Mild Pain (1-3) or Fever Apixaban 2.5 mg 08/31/24 21:00 09/01/24 09:05 Apixaban 2.5 Mg Tablet PO 2.5 mg Q12HR EMMIE Administration Aspirin 81 mg 08/31/24 21:00 09/01/24 09:05 Aspirin 81 Mg Enteric Tablet PO 81 mg Q12HR EMMIE Administration Benztropine Mesylate 0.5 mg 09/01/24 09:00 09/01/24 09:05 Benztropine Mesylate 0.5 Mg Tablet BY MOUTH 0.5 mg TID EMMIE Administration Clonidine HCl 0.1 mg 09/01/24 09:00 09/01/24 09:05 Clonidine Hcl 0.1 Mg Tablet BY MOUTH 0.1 mg Q12HR EMMIE Administration Dextrose 12.5 gm 08/31/24 18:44 Dextrose 50% 25 Gm/50 Ml Syringe IV PUSH PRN PRN Hypoglycemia Protocol Docusate Sodium 100 mg 09/01/24 09:00 09/01/24 09:06 Docusate Sodium 100 Mg Capsule PO Not Given BID EMMIE Duloxetine HCl 30 mg 08/31/24 21:00 08/31/24 20:38 Duloxetine Hcl 30 Mg Capsule.Dr PO 30 mg QHS EMMIE Administration Glucagon 1 mg 08/31/24 18:44 Glucagon For Inj 1 Mg Vial IM PRN PRN Hypoglycemia Protocol Glucose 15 gm 08/31/24 18:44 Glucose Oral Gel 15 Gm Of Glucse In 37.5 Gm Tube PO PRN PRN Hypoglycemia Protocol Ceftriaxone Sodium 1 gm in 50 mls @ 100 mls/hr 09/01/24 09:00 Rocephin 1 Gm/Ns 50 Ml IVPB Q24H EMMIE Dextrose 1,000 mls @ 100 mls/hr 08/31/24 18:44 Dextrose 5% 1,000 Ml IVPB PRN PRN Hypoglycemia Protocol Insulin Aspart 5 units 09/01/24 08:00 09/01/24 09:04 Insulin Aspart (*Bkc) 100 Units/Ml 0.05 units/kg (5 units) 5 units SUB-Q Administration TIDWM [facility] Insulin Aspart 4 - 8 units 09/01/24 08:00 09/01/24 09:04 Insulin Aspart (*Bkc) 100 Units/Ml SUB-Q Not Given TIDWM [facility] Protocol Insulin Aspart 2 - 4 units 08/31/24 21:00 08/31/24 20:35 Insulin Aspart (*Bkc) 100 Units/Ml SUB-Q 2 units HS EMMIE Administration Protocol Insulin Glargine 40 units 08/31/24 21:00 08/31/24 20:31 Insulin Glargine (*Bkc) 100 Units/Ml SUB-Q 40 units HS EMMIE Administration Metoprolol Tartrate 50 mg 08/31/24 21:00 09/01/24 09:05 Metoprolol Tartrate 50 Mg Tab PO 50 mg Q12HR EMMIE Administration Miscellaneous Information 0 each 08/31/24 00:01 09/01/24 05:47 Namzaric Nonform Can Pt Bring From Home? XX 09/30/24 00:00 Not Given CLARIFY EMMIE Non-Formulary Medication 0 cap 08/31/24 20:00 Memantine-Donepezil [Namzaric] .ROUTE 09/30/24 19:59 .COMPLEX EMMIE Pregabalin 100 mg 09/01/24 09:00 09/01/24 09:05 Pregabalin (*Crx) 50 Mg Capsule PO 100 mg TID EMMIE Administration Quetiapine Fumarate 50 mg 08/31/24 21:00 09/01/24 09:05 Quetiapine Fumarate 25 Mg Tablet PO 50 mg Q12HR EMMIE Administration Rosuvastatin Calcium 20 mg 08/31/24 21:00 08/31/24 20:41 Rosuvastatin 20 Mg Tablet PO 20 mg HS EMMIE Administration Solifenacin 5 mg 09/01/24 09:00 09/01/24 09:05 Solifenacin 5 Mg Tablet PO 5 mg DAILY EMMIE Administration Radiology Results: ITS Impressions Chest X-Ray 08/31/24 12:18 IMPRESSION: 1. Small lung volumes. No acute cardiopulmonary disease. Labs Labs: Laboratory Results - last 24 hr 08/31/24 08/31/24 08/31/24 11:11 16:23 19:19 WBC 7.5 RBC 3.27 L Hgb 10.3 L Hct 33.3 L MCV 101.8 H MCH 31.5 MCHC 30.9 L RDW 16.2 H Plt Count 180 MPV 11.3 H Immature Gran % (Auto) 0.4 Neut % (Auto) 72.6 Lymph % (Auto) 15.3 L Jenkins % (Auto) 7.7 Eos % (Auto) 3.7 Baso % (Auto) 0.3 Lymph # (Auto) 1.15 Jenkins # (Auto) 0.6 Eos # (Auto) 0.3 Baso # (Auto) 0.0 Abs Immat Gran (auto) 0.03 Absolute Neuts (auto) 5.5 Absolute Nucleated RBC 0.000 Band Neutrophils % Nucleated RBC % 0.0 Platelet Estimate Anisocytosis [place] Cells Schistocytes PT 19.4 H INR 1.7 APTT 39.6 H Sodium 137 136 L Potassium 4.8 4.7 Chloride 100 100 Carbon Dioxide 30 29 Anion Gap 7 7 BUN 67 H D 67 H Creatinine 3.29 H 3.09 H Estim Creat Clear Calc 21 20 Estimated GFR 14 L 15 L Glucose 254 H 232 H POC Capillary Glucose 220 H Lactic Acid 1.7 Calcium 9.6 9.6 Total Bilirubin 0.9 AST 183 H ALT 121 H Alkaline Phosphatase 125 C-Reactive Protein 23.5 H Total Protein 6.6 Albumin 3.4 L Urine Color Yellow Urine Appearance Turbid H Urine pH 7.0 Ur Specific [place] 1.017 Urine Protein 3+ H Urine Glucose (UA) Negative Urine Ketones Trace H Ur Blood (Man) 3+ H Urine Nitrate Negative Urine Bilirubin Negative Urine Urobilinogen 0.2 Add Ur Microanalysis Reviewed Leukocyte Esterase Rfl 3+ H Urine RBC 21-50 H Urine WBC >100 H Ur Squamous Epith Cells Moderate Urine Bacteria 4+ Urine Casts >20 09/01/24 09/01/24 04:35 08:05 WBC 4.5 RBC 3.13 L Hgb 9.6 L Hct 32.1 L MCV 102.6 H MCH 30.7 MCHC 29.9 L RDW 16.3 H Plt Count 149 L MPV 11.2 H Immature Gran % (Auto) 0.2 Neut % (Auto) 56.3 Lymph % (Auto) 28.4 Jenkins % (Auto) 9.0 H Eos % (Auto) 5.7 H Baso % (Auto) 0.4 Lymph # (Auto) 1.29 Jenkins # (Auto) 0.4 Eos # (Auto) 0.3 Baso # (Auto) 0.0 Abs Immat Gran (auto) 0.01 Absolute Neuts (auto) 2.6 Absolute Nucleated RBC 0.000 Band Neutrophils % 0 Nucleated RBC % 0.0 Platelet Estimate Adequate Anisocytosis 1+ [place] Cells 1+ Schistocytes None seen PT INR APTT Sodium 139 Potassium 4.3 Chloride 102 Carbon Dioxide 30 Anion Gap 7 BUN 68 H Creatinine 3.00 H Estim Creat Clear Calc 23 Estimated GFR 15 L Glucose 168 H POC Capillary Glucose 175 H Lactic Acid Calcium 9.7 Total Bilirubin 0.5 AST 109 H ALT 115 H Alkaline Phosphatase 123 C-Reactive Protein Total Protein 6.4 Albumin 3.3 L Urine Color Urine Appearance Urine pH Ur Specific [place] Urine Protein Urine Glucose (UA) Urine Ketones Ur Blood (Man) Urine Nitrate Urine Bilirubin Urine Urobilinogen Add Ur Microanalysis Leukocyte Esterase Rfl Urine RBC Urine WBC Ur Squamous Epith Cells Urine Bacteria Urine Casts
[2024-09-01] MEDS: ARTIFICIAL TEARS OPHTH SOLN 15 ML BOTTLE 1 DROP EACH EYE ×3 (12:22→21:04)
[2024-09-01] MEDS: SODIUM CHLORIDE 0.9% IV 1,000 ML 75 ML IV CONT (12:23)
[2024-09-01 13:13] LABS: Glucose Point of Care 247 mg/dl (65-105)
[2024-09-01 16:58] LABS: Glucose Point of Care 210 mg/dl (65-105)
[2024-09-01] MEDS: amLODIPine BESYLATE 5 MG TABLET PO (17:31)
[2024-09-01] MEDS: DICLOFENAC SODIUM 1% 100 GM GEL (*BKC) 1 APPLIC TOPICAL ×2 (17:32→21:03)
[2024-09-01] MEDS: diphenhydrAMINE HCl CAP 25 MG CAPSULE PO (17:35)
--- NOTE | 2024-09-01 18:17 | PC.NURSE ---
This patient, Christine Michel, was transferred to [[id number] ] on 09/01/24 at 1818. Personal belongings sent with patient. Report given to [ELLYN Lopez @ [phone] ]. Appropriate documentation sent with patient.
[2024-09-01] MEDS: ACETAMINOPHEN 325 MG TABLET 650 MG PO (21:02)
[2024-09-01] MEDS: INSULIN GLARGINE (*BKC) 100 UNITS/ML 40 UNITS SUB-Q (21:02)
[2024-09-01] MEDS: DULoxetine HCL 30 MG CAPSULE.DR PO (21:03)
[2024-09-01] MEDS: ROSUVASTATIN 20 MG TABLET PO (21:03)
[2024-09-01 21:17] LABS: Glucose Point of Care 253 mg/dl (65-105)
[2024-09-02] VITALS (7 sets, daily range): BP systolic 140–166; BP diastolic 55–69; PULSE 59–73; RESP 16–20; TEMP 35.9–36.4; O2SAT 91–99
[2024-09-02 07:29] LABS: Hemoglobin 10.6 g/dL (12.0-15.0); Mean Corpuscular HGB Conc 30.3 g/dl (32-36); Mean Corpuscular Hemoglobin 31.3 pg (26-34); Mean Corpuscular Volume 103.2 fl (80-100); Mean Platelet Volume 11.3 fl (7.4-10.4); Platelet Count Result 137 k/mm3 (150-375); Red Blood Count 3.39 M/mm3 (4.2-5.4); Red Cell Distribution Width 15.5 % (11.5-14.5); White Blood Count 3.4 K/mm3 (4.5-10.0)
[2024-09-02 07:41] LABS: Alanine Aminotransferase 94 U/L (6-35); Albumin Level 3.7 g/dL (3.5-5.1); Alkaline Phosphatase 144 U/L (38-126); Anion Gap 8 mmol/L (4-12); Aspartate Amino Transferase 61 U/L (14-36); Bilirubin,Total 0.5 mg/dL (0.2-1.3); Blood Urea Nitrogen 58 mg/dL (7-17); Calcium 9.5 mg/dL (8.4-10.2); Carbon Dioxide 27 mmol/L (22-30); Chloride 104 mmol/L (98-107); Estimated CRCL calculation 33 ml/min; Estimated Glomerular Filt Rate 23; Glucose 217 mg/dL (65-110); Potassium 4.6 mmol/L (3.4-5.0); Sodium 139 mmol/L (137-145); Total Protein 7.4 g/dL (6.3-8.2)
[2024-09-02 08:23] LABS: Glucose Point of Care 236 mg/dl (65-105)
[2024-09-02] MEDS: ASPIRIN 81 MG ENTERIC TABLET PO ×2 (08:33→21:35)
[2024-09-02] MEDS: BENZTROPINE MESYLATE 0.5 MG TABLET BY MOUTH ×3 (08:33→16:48)
[2024-09-02] MEDS: cloNIDine HCL 0.1 MG TABLET BY MOUTH ×2 (08:33→21:35)
[2024-09-02] MEDS: METOPROLOL TARTRATE 50 MG TAB PO ×2 (08:33→21:35)
[2024-09-02] MEDS: PREGABALIN (*CRX) 50 MG CAPSULE 100 MG PO ×3 (08:33→16:47)
[2024-09-02] MEDS: DOCUSATE SODIUM 100 MG CAPSULE PO ×2 (08:33→16:48)
[2024-09-02] MEDS: SOLIFENACIN 5 MG TABLET PO (08:33)
[2024-09-02] MEDS: amLODIPine BESYLATE 5 MG TABLET PO (08:33)
[2024-09-02] MEDS: QUEtiapine FUMARATE 25 MG TABLET 50 MG PO ×2 (08:33→21:35)
[2024-09-02] MEDS: APIXABAN 2.5 MG TABLET PO ×2 (08:33→21:39)
[2024-09-02] MEDS: INSULIN ASPART (*BKC) 100 UNITS/ML SUB-Q ×7 (08:34→21:34)
[2024-09-02] MEDS: DICLOFENAC SODIUM 1% 100 GM GEL (*BKC) 1 APPLIC TOPICAL ×2 (08:44→22:35)
[2024-09-02] MEDS: diphenhydrAMINE HCl CAP 25 MG CAPSULE PO (09:27)
[2024-09-02] MEDS: ACETAMINOPHEN 325 MG TABLET 650 MG PO (09:27)
[2024-09-02 12:02] LABS: Glucose Point of Care 325 mg/dl (65-105)
--- NOTE | 2024-09-02 13:36 | P.PNIM_ITS ---
Progress Note: A&P Assessment and Plan (1) Acute UTI: Code(s): N39.0 - Urinary tract infection, site not specified Status: Acute Assessment and Plan: Chronic Vigil exchanged in emergency room Started on Rocephin Culture and sensitivity pending Received gentle IV fluid. (2) Acute kidney injury superimposed on CKD: Code(s): N17.9 - Acute kidney failure, unspecified; N18.9 - Chronic kidney disease, unspecified Status: Acute Assessment and Plan: Fluid bolus given in ED Creatinine 3.29 on admission baseline around mid 1s. Order lisinopril Gentle fluid Monitor renal function and improving (3) HTN (hypertension), benign: Code(s): I10 - Essential (primary) hypertension Status: Chronic Assessment and Plan: Holding lisinopril Continue clonidine Add amlodipine (4) Insulin dependent type 2 diabetes mellitus: Code(s): E11.9 - Type 2 diabetes mellitus without complications; Z79.4 - FDC (current) use of insulin Status: Acute Assessment and Plan: Patient's home dose of Lantus is 50 b.i.d. and aspart are 8 units per meal Accu-Cheks a.c. HS Diabetic diet 40 units of Lantus ordered, 5 units of aspart per meal and sliding scale Adjust as needed (5) Chronic indwelling Vigil catheter: Code(s): Z97.8 - Presence of other specified devices Status: Acute Assessment and Plan: Exchanged in the ED Possible fall positive UTI Culture and sensitivity pending IV Rocephin (6) MALIA on CPAP: Code(s): G47.33 - Obstructive sleep apnea (adult) (pediatric); Z99.89 - Dependence on other enabling machines and devices Status: Chronic Assessment and Plan: CPAP ordered (7) Neuroleptic-induced tardive dyskinesia: Code(s): G24.01 - Drug induced subacute dyskinesia; T43.505A - Adverse effect of unspecified antipsychotics and neuroleptics, initial encounter Status: Acute Assessment and Plan: Continue benstropine Plan Hypoxia at night AHI 15.3. CA a 170 minute less than 88% will recheck on CPAP DVT prophylaxis on apixaban Subjective Date/time seen: 09/02/24 13:36 Interval history: No overnight events. Feels better. Chronic issues with neuropathy reported. Review of Systems Review of Systems: All systems reviewed & are unremarkable except as noted in HPI and below Exam Narrative: General: Chronically ill HEENT: normocephalic, atraumatic. Mucous membranes dry. EOMI, PERRLA, Respiratory: Diminished breath sounds to ascultation bilaterally. No rales/rhonic/wheezes. Cardiovascular: Regular rate and rhythm, normal S1-S2 upon ascultation. Abdomen: Soft, round, no pulsatile masses, nondistended and nontender. Extremities: No cyanosis, clubbing, . Pulses are palpable 2/2. Active ROM to all four extremities. Neuro: Alert and orientated x 4. PERRLA. Cranial nerves 2-12 intact without focal deficit. Skin: Warm, dry, and intact, without rash, erythema, or lesion. Psych: pleasant, cooperative, normal speech, normal affect, no hallucinations, no dysarthia Chronic Vigil Objective Data Vital Signs Vital Signs: Vital Signs - 24 hr 09/01/24 14:00 09/01/24 16:00 09/01/24 19:02 Temperature 97.9 F 98.2 F Pulse Rate 67 70 Respiratory Rate 20 16 Blood Pressure 161/82 H 158/71 H Pulse Oximetry 100 99 Oxygen Delivery Nasal Cannula Oxygen Flow Rate 1 09/01/24 20:00 09/01/24 21:03 09/01/24 22:00 Temperature 97.7 F Pulse Rate 70 70 70 Respiratory Rate 16 16 Blood Pressure 153/58 H Pulse Oximetry 99 98 Oxygen Delivery Nasal Cannula Oxygen Flow Rate 1 09/01/24 22:00 09/02/24 06:00 Temperature 97.6 F Pulse Rate 59 L Respiratory Rate 16 Blood Pressure 166/69 H Pulse Oximetry 98 91 Oxygen Delivery Room Air Oxygen Flow Rate Intake/Output Intake/Output: Intake & Output 08/30/24 08/31/24 09/01/24 09/02/24 23:59 23:59 23:59 23:59 Intake Total 2650 1330 1240 Output Total 250 2025 1300 Balance 3700 -695 -60 Meds/Results Medications: Active Medications Generic Name Dose Route Start Last Admin Trade Name Freq PRN Reason Stop Dose Admin Acetaminophen 650 mg 08/31/24 18:44 09/02/24 09:27 Acetaminophen 325 Mg Tablet PO 650 mg Q4H PRN Administration Mild Pain (1-3) or Fever Amlodipine Besylate 5 mg 09/01/24 14:45 09/02/24 08:33 Amlodipine Besylate 5 Mg Tablet PO 5 mg DAILY EMMIE Administration Apixaban 2.5 mg 08/31/24 21:00 09/02/24 08:33 Apixaban 2.5 Mg Tablet PO 2.5 mg Q12HR EMMIE Administration Artificial Tears 1 drop 09/01/24 11:09 09/01/24 21:04 Artificial Tears Ophth Soln 15 Ml Bottle EACH EYE 1 drop QID PRN Administration Dry Eye(s) Aspirin 81 mg 08/31/24 21:00 09/02/24 08:33 Aspirin 81 Mg Enteric Tablet PO 81 mg Q12HR EMMIE Administration Benztropine Mesylate 0.5 mg 09/01/24 09:00 09/02/24 12:49 Benztropine Mesylate 0.5 Mg Tablet BY MOUTH 0.5 mg TID EMMIE Administration Clonidine HCl 0.1 mg 09/01/24 09:00 09/02/24 08:33 Clonidine Hcl 0.1 Mg Tablet BY MOUTH 0.1 mg Q12HR EMMIE Administration Dextrose 12.5 gm 08/31/24 18:44 Dextrose 50% 25 Gm/50 Ml Syringe IV PUSH PRN PRN Hypoglycemia Protocol Diclofenac Sodium 1 applic 09/01/24 11:09 09/02/24 08:44 Diclofenac Sodium 1% 100 Gm Gel (*Bkc) TOPICAL 1 applic QID PRN Administration Muscle/Joint Pain Diphenhydramine HCl 25 mg 09/01/24 11:09 09/02/24 09:27 Diphenhydramine Hcl Cap 25 Mg Capsule PO 25 mg Q6H PRN Administration Itching Docusate Sodium 100 mg 09/01/24 09:00 09/02/24 08:33 Docusate Sodium 100 Mg Capsule PO 100 mg BID EMMIE Administration Duloxetine HCl 30 mg 08/31/24 21:00 09/01/24 21:03 Duloxetine Hcl 30 Mg Capsule.Dr PO 30 mg QHS EMMIE Administration Glucagon 1 mg 08/31/24 18:44 Glucagon For Inj 1 Mg Vial IM PRN PRN Hypoglycemia Protocol Glucose 15 gm 08/31/24 18:44 Glucose Oral Gel 15 Gm Of Glucse In 37.5 Gm Tube PO PRN PRN Hypoglycemia Protocol Ceftriaxone Sodium 1 gm in 50 mls @ 100 mls/hr 09/01/24 09:00 09/02/24 08:32 Rocephin 1 Gm/Ns 50 Ml IVPB 100 mls/hr Q24H EMMIE Administration Dextrose 1,000 mls @ 100 mls/hr 08/31/24 18:44 Dextrose 5% 1,000 Ml IVPB PRN PRN Hypoglycemia Protocol Insulin Aspart 5 units 09/01/24 08:00 09/02/24 12:49 Insulin Aspart (*Bkc) 100 Units/Ml 0.05 units/kg (5 units) 5 units SUB-Q Administration TIDWM EMMIE Insulin Aspart 4 - 8 units 09/01/24 08:00 09/02/24 12:50 Insulin Aspart (*Bkc) 100 Units/Ml SUB-Q 6 units TIDWM [facility] Administration Protocol Insulin Aspart 2 - 4 units 08/31/24 21:00 09/01/24 21:02 Insulin Aspart (*Bkc) 100 Units/Ml SUB-Q 2 units HS [facility] Administration Protocol Insulin Glargine 40 units 08/31/24 21:00 09/01/24 21:02 Insulin Glargine (*Bkc) 100 Units/Ml SUB-Q 40 units HS EMMIE Administration Metoprolol Tartrate 50 mg 08/31/24 21:00 09/02/24 08:33 Metoprolol Tartrate 50 Mg Tab PO 50 mg Q12HR EMMIE Administration Miscellaneous Information 0 each 08/31/24 00:01 09/01/24 05:47 Namzaric Nonform Can Pt Bring From Home? XX 09/30/24 00:00 Not Given CLARIFY [facility] Pregabalin 100 mg 09/01/24 09:00 09/02/24 12:49 Pregabalin (*Crx) 50 Mg Capsule PO 100 mg TID EMMIE Administration Quetiapine Fumarate 50 mg 08/31/24 21:00 09/02/24 08:33 Quetiapine Fumarate 25 Mg Tablet PO 50 mg Q12HR EMMIE Administration Rosuvastatin Calcium 20 mg 08/31/24 21:00 09/01/24 21:03 Rosuvastatin 20 Mg Tablet PO 20 mg HS [facility] Administration Solifenacin 5 mg 09/01/24 09:00 09/02/24 08:33 Solifenacin 5 Mg Tablet PO 5 mg DAILY EMMIE Administration Radiology Results: ITS Impressions Chest X-Ray 08/31/24 12:18 IMPRESSION: 1. Small lung volumes. No acute cardiopulmonary disease. Labs Labs: Laboratory Results - last 24 hr 09/01/24 09/01/24 09/02/24 16:29 20:36 07:22 WBC 3.4 L RBC 3.39 L Hgb 10.6 L Hct 35.0 L MCV 103.2 H MCH 31.3 MCHC 30.3 L RDW 15.5 H Plt Count 137 L MPV 11.3 H Sodium 139 Potassium 4.6 Chloride 104 Carbon Dioxide 27 Anion Gap 8 BUN 58 H D Creatinine 2.09 H Estim Creat Clear Calc 33 Estimated GFR 23 L Glucose 217 H POC Capillary Glucose 210 H 253 H Calcium 9.5 Total Bilirubin 0.5 AST 61 H ALT 94 H Alkaline Phosphatase 144 H Total Protein 7.4 Albumin 3.7 09/02/24 09/02/24 08:10 11:11 WBC RBC Hgb Hct MCV MCH MCHC RDW Plt Count MPV Sodium Potassium Chloride Carbon Dioxide Anion Gap BUN Creatinine Estim Creat Clear Calc Estimated GFR Glucose POC Capillary Glucose 236 H 325 H Calcium Total Bilirubin AST ALT Alkaline Phosphatase Total Protein Albumin
[2024-09-02 16:50] LABS: Glucose Point of Care 261 mg/dl (65-105)
[2024-09-02] MEDS: HYDROcodone/acetaminophen (*CRX) 5-325 MG TABLET 1 TAB PO (18:35)
[2024-09-02] MEDS: INSULIN GLARGINE (*BKC) 100 UNITS/ML 40 UNITS SUB-Q (21:34)
[2024-09-02] MEDS: ROSUVASTATIN 20 MG TABLET PO (21:35)
[2024-09-02] MEDS: DULoxetine HCL 30 MG CAPSULE.DR PO (21:36)
[2024-09-02 21:37] LABS: Glucose Point of Care 361 mg/dl (65-105)
--- NOTE | 2024-09-03 00:08 | PCRCNOTE ---
Pt refused CPAP and refused Apnea link. [id number]
[2024-09-03 06:00] VITALS: BP 157/86; PULSE 69; RESP 18; TEMP 36; O2SAT 96
[2024-09-03 07:42] LABS: Glucose Point of Care 288 mg/dl (65-105)
[2024-09-03 08:24] LABS: Basophils Percent Auto 0.9 % (0.2-1.2); Eosinophils Absolute Auto 0.2 K/mm3 (0-0.3); Eosinophils Percent Auto 6.1 % (0-4.4); Hematocrit 31.1 % (37.0-47.0); Hemoglobin 9.5 g/dL (12.0-15.0); Immature Granulocyte Absolute 0.04 K/mm3 (0.00-0.031); Immature Granulocyte Percent A 1.2 % (0-0.5); Lymphocytes Absolute Auto 0.96 K/mm3 (0.9-3.2); Lymphocytes Percent Auto 27.7 % (18.3-44.2); Mean Corpuscular HGB Conc 30.5 g/dl (32-36); Mean Corpuscular Hemoglobin 30.9 pg (26-34); Mean Corpuscular Volume 101.3 fl (80-100); Mean Platelet Volume 11.2 fl (7.4-10.4); Monocytes Absolute Auto 0.4 K/mm3 (0.1-0.6); Monocytes Percent Auto 10.1 % (2.6-8.5); Neutrophils Absolute Auto 1.9 K/mm3 (1.3-6.7); Platelet Count Result 139 k/mm3 (150-375); Red Blood Count 3.07 M/mm3 (4.2-5.4); Red Cell Distribution Width 15.2 % (11.5-14.5); White Blood Count 3.5 K/mm3 (4.5-10.0)
[2024-09-03 08:40] LABS: Alanine Aminotransferase 65 U/L (6-35); Albumin Level 3.2 g/dL (3.5-5.1); Alkaline Phosphatase 135 U/L (38-126); Anion Gap 6 mmol/L (4-12); Aspartate Amino Transferase 37 U/L (14-36); Bilirubin,Total 0.4 mg/dL (0.2-1.3); Blood Urea Nitrogen 44 mg/dL (7-17); Calcium 9.1 mg/dL (8.4-10.2); Carbon Dioxide 27 mmol/L (22-30); Chloride 106 mmol/L (98-107); Estimated CRCL calculation 43 ml/min; Estimated Glomerular Filt Rate 31; Glucose 296 mg/dL (65-110); Magnesium 2.3 mg/dL (1.6-2.3); Potassium 4.9 mmol/L (3.4-5.0); Sodium 139 mmol/L (137-145); Total Protein 6.2 g/dL (6.3-8.2)
[2024-09-03] MEDS: BENZTROPINE MESYLATE 0.5 MG TABLET BY MOUTH ×2 (08:50→12:03)
[2024-09-03] MEDS: APIXABAN 2.5 MG TABLET PO (08:50)
[2024-09-03] MEDS: SOLIFENACIN 5 MG TABLET PO (08:50)
[2024-09-03] MEDS: PREGABALIN (*CRX) 50 MG CAPSULE 100 MG PO ×2 (08:50→12:03)
[2024-09-03] MEDS: DOCUSATE SODIUM 100 MG CAPSULE PO (08:50)
[2024-09-03] MEDS: amLODIPine BESYLATE 5 MG TABLET PO (08:50)
[2024-09-03] MEDS: QUEtiapine FUMARATE 25 MG TABLET 50 MG PO (08:50)
[2024-09-03] MEDS: ASPIRIN 81 MG ENTERIC TABLET PO (08:50)
[2024-09-03] MEDS: cloNIDine HCL 0.1 MG TABLET BY MOUTH (08:50)
[2024-09-03] MEDS: METOPROLOL TARTRATE 50 MG TAB PO (08:50)
[2024-09-03] MEDS: INSULIN ASPART (*BKC) 100 UNITS/ML SUB-Q ×4 (08:52→12:03)
[2024-09-03] MEDS: HYDROcodone/acetaminophen (*CRX) 5-325 MG TABLET 1 TAB PO (08:54)
[2024-09-03] MEDS: diphenhydrAMINE HCl CAP 25 MG CAPSULE PO (08:54)
[2024-09-03 11:39] LABS: Glucose Point of Care 367 mg/dl (65-105)
--- NOTE | 2024-09-03 12:01 | P.DS_ITS ---
DS: Admitting Diagnosis Discharge Date 09/03/2024 Admitting Diagnosis Generalized weakness DS: Discharge Diagnosis Discharge Diagnosis (1) Acute UTI: Code(s): N39.0 - Urinary tract infection, site not specified Status: Acute (2) Acute kidney injury superimposed on CKD: Code(s): N17.9 - Acute kidney failure, unspecified; N18.9 - Chronic kidney disease, unspecified Status: Acute (3) HTN (hypertension), benign: Code(s): I10 - Essential (primary) hypertension Status: Chronic (4) Insulin dependent type 2 diabetes mellitus: Code(s): E11.9 - Type 2 diabetes mellitus without complications; Z79.4 - senior living (current) use of insulin Status: Acute (5) Chronic indwelling Vigil catheter: Code(s): Z97.8 - Presence of other specified devices Status: Acute (6) MALIA on CPAP: Code(s): G47.33 - Obstructive sleep apnea (adult) (pediatric); Z99.89 - Dependence on other enabling machines and devices Status: Chronic (7) Neuroleptic-induced tardive dyskinesia: Code(s): G24.01 - Drug induced subacute dyskinesia; T43.505A - Adverse effect of unspecified antipsychotics and neuroleptics, initial encounter Status: Acute DS: Summary Hospital Course Hospital Course: # Acute UTI: Chronic Vigil exchanged in emergency room Started on Rocephin Culture and sensitivity with mixed genital los Received gentle IV fluid. Switched to oral # Acute kidney injury superimposed on CKD: Fluid bolus given in ED Creatinine 3.29 on admission baseline around mid 1s. Order lisinopril Gentle fluid Monitor renal function and improving # HTN (hypertension), benign: Holding lisinopril and Lasix Continue clonidine Add amlodipine. Resume lisinopril at discharge # Insulin dependent type 2 diabetes mellitus: Patient's home dose of Lantus is 50 b.i.d. and aspart are 8 units per meal Accu-Cheks a.c. HS Diabetic diet 40 units of Lantus ordered, 5 units of aspart per meal and sliding scale Adjust as needed L # Chronic indwelling Vigil catheter: Exchanged in the ED Possible fall positive UTI Culture and sensitivity with mixed genital los IV Rocephin # MALIA on CPAP: CPAP ordered Discussed compliance # Neuroleptic-induced tardive dyskinesia: Continue benstropine Hypoxia at night AHI 15.3. Hypoxia 170 minute less than 88% will recheck on CPAP however she refused. Advise to follow-up as an outpatient basis and continue CPAP at night DVT prophylaxis on apixaban Time Spent with Patient Time attestation: Total time spent providing and/or coordinating discharge services: 40 minutes Exam Narrative: General: Chronically ill not in acute distress HEENT: normocephalic, atraumatic. Mucous membranes dry. EOMI, PERRLA, Respiratory: Diminished breath sounds to ascultation bilaterally. No rales/rhonic/wheezes. Cardiovascular: Regular rate and rhythm, normal S1-S2 upon ascultation. Abdomen: Soft, round, no pulsatile masses, nondistended and nontender. Extremities: No cyanosis, clubbing, . Pulses are palpable 2/2. Active ROM to all four extremities. Neuro: Alert and orientated x 4. PERRLA. Cranial nerves 2-12 intact without focal deficit. Skin: Warm, dry, and intact, without rash, erythema, or lesion. Psych: pleasant, cooperative, normal speech, normal affect, no hallucinations, no dysarthia Calos Vigil DS: Data Data Completed and Pending Labs on day of discharge: Labs from last 24 hours 09/03/24 09/03/24 09/03/24 11:36 08:08 07:28 WBC 3.5 L RBC 3.07 L Hgb 9.5 L Hct 31.1 L MCV 101.3 H MCH 30.9 MCHC 30.5 L RDW 15.2 H Plt Count 139 L MPV 11.2 H Immature Gran % (Auto) 1.2 H Neut % (Auto) 54.0 Lymph % (Auto) 27.7 [place] % (Auto) 10.1 H Eos % (Auto) 6.1 H Baso % (Auto) 0.9 Lymph # (Auto) 0.96 [place] # (Auto) 0.4 Eos # (Auto) 0.2 Baso # (Auto) 0.0 Abs Immat Gran (auto) 0.04 H Absolute Neuts (auto) 1.9 Absolute Nucleated RBC 0.000 Nucleated RBC % 0.0 Sodium 139 Potassium 4.9 Chloride 106 Carbon Dioxide 27 Anion Gap 6 BUN 44 H D Creatinine 1.62 H Estim Creat Clear Calc 43 Estimated GFR 31 L Glucose 296 H POC Capillary Glucose 367 H 288 H Calcium 9.1 Magnesium 2.3 Total Bilirubin 0.4 AST 37 H ALT 65 H Alkaline Phosphatase 135 H Total Protein 6.2 L Albumin 3.2 L 09/02/24 09/02/24 09/02/24 21:07 16:48 11:11 WBC RBC Hgb Hct MCV MCH MCHC RDW Plt Count MPV Immature Gran % (Auto) Neut % (Auto) Lymph % (Auto) [place] % (Auto) Eos % (Auto) Baso % (Auto) Lymph # (Auto) [place] # (Auto) Eos # (Auto) Baso # (Auto) Abs Immat Gran (auto) Absolute Neuts (auto) Absolute Nucleated RBC Nucleated RBC % Sodium Potassium Chloride Carbon Dioxide Anion Gap BUN Creatinine Estim Creat Clear Calc Estimated GFR Glucose POC Capillary Glucose 361 H 261 H 325 H Calcium Magnesium Total Bilirubin AST ALT Alkaline Phosphatase Total Protein Albumin Preliminary micro results at discharge 08/31/24 11:11 Blood Culture - Preliminary Blood 08/31/24 11:11 Blood Culture - Preliminary Blood Imaging Radiologist's impression: ITS Impressions Chest X-Ray 08/31/24 12:18 IMPRESSION: 1. Small lung volumes. No acute cardiopulmonary disease. Discharge Plan Discharge Attending physician on discharge: Andrea Strong Discharging Clinician: Andrea Strong Anticipated Discharge Date/Time: 09/03/24 12:05 Patient Disposition: Home with Home Health Service Activity: as tolerated Diet: heart healthy and diabetic Discharge Instructions: Per Care Coordination, patient to resume home health with [facility] ([phone] ) for PT/OT and alf services. Please fax discharge instructions and medication sheets to [phone]. Patient Instructions: Antibiotic Form Patient Language: Icelandic Stand Alone Forms: General Discharge Information Follow-up/Referrals: Javy Monsivais MD [Primary Care Provider] - 1 Week Discharge Medications: New amlodipine [Norvasc] 5 mg Tablet 5 mg PO DAILY Qty: 30 0RF cefdinir 300 mg capsule 300 mg PO Q12H Qty: 6 0RF Continued acetaminophen [Tylenol Extra Strength] 500 mg tablet 1,000 mg PO BID ferrous sulfate 325 mg (65 mg iron) tablet 325 mg PO DAILY nystatin 100,000 unit/gram cream 1 applic topical DAILY Patient Comments: Apply to skin under breasts lactobacillus combination no.9 [Adult 50 Plus Probiotic] 1 cap PO HS (DME) FreeStyle Mohan 3 [place] Misc See Rx Instructions .Route Qty: 1 0RF Rx Instructions: use for monitoring glucose on insulin (DME) pen needle, diabetic 31 gauge x 5/16 needle See Rx Instructions .ROUTE .COMPLEX Qty: 400 2RF Dose Instruction: USE FIVE TIMES DAILY Rx Instructions: USE FIVE TIMES DAILY aspirin 81 mg tablet,delayed release (DR/EC) 81 mg PO Q12H insulin lispro [Humalog KwikPen Insulin] 100 unit/mL insulin pen 8 unit subcut TIDWMEAL Rx Instructions: Take 10 units +sliding scale TID 15 mins before meals 150-175: 1 unit 176-200: 2 units 201-225: 3 units 226-250: 4 units 251-300: 5 units 301-325: 6 units 326-350: 7 units 351-375: 8 units 376-400: 9 units >401: 10 units solifenacin 5 mg tablet 5 mg PO DAILY clotrimazole-betamethasone 1-0.05 % Cream 1 applic TOPICAL BID Rx Instructions: APPLY TO BUTTOCKS Clear Fiber 3 gram/4 gram Powder 2 tsp PO TID PRN (Reason: Constipation) tramadol 50 mg tablet 50 mg PO HS lisinopril 5 mg tablet 5 mg PO HS rosuvastatin 20 mg tablet 20 mg PO HS quetiapine 50 mg tablet 50 mg PO Q12H icosapent ethyl [Vascepa] 1 gram capsule 2 g PO Q12H Eliquis 2.5 mg tablet 2.5 mg PO Q12H insulin glargine U-300 conc [Toujeo Max U-300 SoloStar] 300 unit/mL (3 mL) insulin pen 50 unit subcut Q12H MDD 100 Adults Multivitamin 18 mg iron-400 mcg-25 mcg Tablet 1 tablet PO DAILY benztropine 0.5 mg tablet See Rx Instructions .ROUTE .COMPLEX Qty: 270 1RF Dose Instruction: TAKE 1 TABLET BY MOUTH THREE TIMES DAILY Rx Instructions: TAKE 1 TABLET BY MOUTH THREE TIMES DAILY lactulose 10 gram/15 mL solution 15 ml PO BID PRN (Reason: Constipation) Qty: 3785 0RF metoprolol tartrate 50 mg tablet 50 mg PO Q12H Qty: 60 5RF Mounjaro 2.5 mg/0.5 mL pen injector 2.5 mg subcut WEEKLY Qty: 2 0RF Patient Comments: Pt takes on Fridays Rx Instructions: for 4 weeks clonidine HCl 0.1 mg tablet See Rx Instructions .ROUTE .COMPLEX Qty: 180 0RF Dose Instruction: TAKE 1 TABLET(0.1 MG) BY MOUTH TWICE DAILY. MAY REPEAT EVERY 1 HOUR. NOT TO EXCEED 0.7 MG 7 TABLETS PER 24 HOURS Rx Instructions: TAKE 1 TABLET(0.1 MG) BY MOUTH TWICE DAILY. MAY REPEAT EVERY 1 HOUR. NOT TO EXCEED 0.7 MG 7 TABLETS PER 24 HOURS duloxetine 30 mg capsule,delayed release(DR/EC) 30 mg PO QHS Qty: 90 0RF pregabalin 100 mg capsule 100 mg PO TID Qty: 90 2RF (DME) FreeStyle Mohan 3 Sensor Device See Rx Instructions .Route Qty: 1 0RF Rx Instructions: use for monitoring blood sugar cholecalciferol (vitamin D3) 1,250 mcg (50,000 unit) capsule See Rx Instructions .ROUTE .COMPLEX Qty: 12 3RF Dose Instruction: TAKE 1 CAPSULE BY MOUTH ONCE WEEKLY ON FRIDAYS Rx Instructions: TAKE 1 CAPSULE BY MOUTH ONCE WEEKLY ON FRIDAYS memantine-donepezil [Namzaric] 28-10 mg cap,sprinkle,ER 24hr dose pack See Rx Instructions .ROUTE .COMPLEX Qty: 90 2RF Dose Instruction: TAKE 1 CAPSULE BY MOUTH AT BEDTIME Rx Instructions: TAKE 1 CAPSULE BY MOUTH AT BEDTIME (DME) FreeStyle Mohan 3 Plus Sensor Device See Rx Instructions .Route Qty: 2 2RF Rx Instructions: change every 15 days Discontinued furosemide 40 mg tablet See Rx Instructions .ROUTE .COMPLEX Qty: 90 0RF Dose Instruction: TAKE 1 TABLET BY MOUTH EVERY MORNING Rx Instructions: TAKE 1 TABLET BY MOUTH EVERY MORNING cephalexin 500 mg capsule 500 mg PO Q6H 5 Days Qty: 20 0RF Other Ambulatory Orders: Basic Metabolic Panel (Routine) Timeframe: 1 Week Location: Determined by Patient Ordered By: Andrea Strong Complete Blood Count with Diff (Routine) Timeframe: 1 Week Location: Determined by Patient Ordered By: Andrea Strong Date of admission: 09/01/24 10:30 Primary Care Provider: Javy Monsivais Admitting Provider: Andrea Strong Attending physician on admission: Andrea Strong Condition: Improved
--- NOTE | 2024-09-04 08:12 | P.CDI_ITS ---
CDI Query Clarification Request 1) Please clarify if UTI has been ruled in or ruled out, if ruled in please clarify below 2)Clarification request - UTI has been documented, chronic indwelling villa catheter documented. Please clarify if UTI is: * due to/associated with chronic indwelling villa catheter * not due to/associated with chronic indwelling villa catheter * unable to determine The medical chart reflects the followin-year-old female present to the emergency department for evaluation for increased generalized weakness and Villa catheter issue. Patient states she has had indwelling Villa catheter for approximately the last year. Patient reports her Villa catheter was last changed approximately 1 week ago. Patient reports over the last few days she has had decreased urinary output from the Villa catheter. Patient reports today she attempted to walk felt lightheaded dizzy and had increased generalized weakness. Patient denies any falls or injuries. Patient denies any chest pain or shortness of breath. (1) Acute UTI: Code(s): N39.0 - Urinary tract infection, site not specified Status: Acute Assessment and Plan: Chronic Villa exchanged in emergency room Started on Rocephin Culture and sensitivity pending Will give gentle IV fluid (2) Acute kidney injury superimposed on CKD: Code(s): N17.9 - Acute kidney failure, unspecified; N18.9 - Chronic kidney disease, unspecified Status: Acute Assessment and Plan: Fluid bolus given in ED Creatinine 3.29 on admission baseline around mid 1s. Order lisinopril Gentle fluid Monitor renal function (3) HTN (hypertension), benign: Code(s): I10 - Essential (primary) hypertension Status: Chronic Assessment and Plan: Holding lisinopril Continue clonidine (4) Insulin dependent type 2 diabetes mellitus: Code(s): E11.9 - Type 2 diabetes mellitus without complications; Z79.4 - ferry terminal agent (current) use of insulin Status: Acute Assessment and Plan: Patient's home dose of Lantus is 50 b.i.d. and aspart are 8 units per meal Accu-Cheks a.c. HS Diabetic diet 40 units of Lantus ordered, 5 units of aspart per meal and sliding scale Adjust as needed (5) Chronic indwelling Villa catheter: Code(s): Z97.8 - Presence of other specified devices Status: Acute Assessment and Plan: Exchanged in the ED Possible fall positive UTI Culture and sensitivity pending IV Rocephin Urine Culture Final 09/02/24 Q SOURCE: URINE STATUS: FINAL RESULT: Mixed genital los isolated. These superficial bacteria are not indicative of a urinary tract infection. No further organism identification is warranted on this specimen. If clinically indicated, recollect clean-catch, mid-stream urine and transfer immediately to Urine Culture Transport Tube. Urine Color Yellow Yellow ML Urine Appearance Turbid H Clear ML Urine pH 7.0 5.0-9.0 ML Specific [place] Ur 1.017 1.001-1.035 ML Urine Protein 3+ H Negative mg/dL ML Urine Glucose Negative Negative mg/dL ML Urine Ketones Trace H Negative mg/dL ML Blood Urine 3+ H Negative ML Urine Nitrate Negative Negative ML Urine Bilirubin Negative Negative ML Urine Urobilinogen 0.2 <2.0 mg/dL ML Leukocyte Esterase Ur 3+ H Negative ARTURO/UL ML Urine RBC 21-50 H 0-2 /hpf ML Urine WBC >100 H 0-3 /hpf ML Squamous Epi Ur Moderate Few /hpf ML Urine Bacteria 4+ /hpf ML Non Pathogenic Casts >20 ML Need Manual Microscopic IV ceftriaxone q24 <Noreen Marie RN - Last Filed: 09/04/24 08:16> Provider Comments UTI ruled in UTI due to associated chronic indwelling Villa catheter <Andrea Strong MD - Last Filed: 09/05/24 08:11>
== END 2024-09-03 13:30 | disposition home health service (06) | DRG 699 ==
LOC: ANHED 12:27 → ANHIMU 13:21 → ANH3MEDSUR 09-01 18:20
PROVIDERS: Nurse Practitioner Gerontology; Admitting Provider Internal Medicine; Emergency Provider Emergency Medicine; PCP Family Medicine; Visit Provider Internal Medicine
DX: T83.511A Infection and inflammatory reaction due to indwelling urethral catheter, initial encounter (principal); N17.9 Acute kidney failure, unspecified; Z68.41 Body mass index [BMI] 40.0-44.9, adult; N39.0 Urinary tract infection, site not specified; I12.9 Hypertensive chronic kidney disease with stage 1 through stage 4 chronic kidney disease, or unspecified chronic kidney disease; E11.22 Type 2 diabetes mellitus with diabetic chronic kidney disease; E03.9 Hypothyroidism, unspecified; E66.01 Morbid (severe) obesity due to excess calories; E55.9 Vitamin D deficiency, unspecified; E78.2 Mixed hyperlipidemia; F51.04 Psychophysiologic insomnia; G47.33 Obstructive sleep apnea (adult) (pediatric); G31.84 Mild cognitive impairment of uncertain or unknown etiology; G24.01 Drug induced subacute dyskinesia; G89.29 Other chronic pain; J44.9 Chronic obstructive pulmonary disease, unspecified; M10.9 Gout, unspecified; N18.30 Chronic kidney disease, stage 3 unspecified; N31.9 Neuromuscular dysfunction of bladder, unspecified; Z79.4 Long term (current) use of insulin; Z79.85 Long-term (current) use of injectable non-insulin antidiabetic drugs; Z99.89 Dependence on other enabling machines and devices; Z86.711 Personal history of pulmonary embolism; Z79.82 Long term (current) use of aspirin
CPT/HCPCS: 36415; 71046; 80048; 80053; 81001; 82948; 83605; 83735; 85025; 85027; 85610; 85730; 86140; 87040; 87086; 93005; 94762; 96361; 96365; 97110; 97161; 97166; 97530; 99285; A9270; G0378; J0696; J1815; J7030; J7120

== ENCOUNTER 2024-10-08 19:29 | Inpatient (IN) | payer MEDICARE, OTHER, SELFPAY ==
[2024-10-08] VITALS (25 sets, daily range): BP systolic 103–155; BP diastolic 53–116; PULSE 71–123; RESP 9–23; TEMP 36.5; O2SAT 88–100
--- NOTE | ~2024-10-08 | XR_ITS ---
EXAMINATION: XR chest 1V portable 10/09/2024 00:26 INDICATION: Shortness of breath PROCEDURE: AP portable chest COMPARISON: Comparison to multiple prior studies sequentially, with oldest reviewed study dated 11/2023. FINDINGS: The lungs are clear. The cardiomediastinal silhouette is within normal limits. There are no pleural effusions. There is no pneumothorax suspected. 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 IMPRESSION: 1: NO ACUTE CARDIOPULMONARY DISEASE. Reviewed, dictated and finalized at location A.
--- NOTE | ~2024-10-08 | CT_ITS ---
EXAMINATION: CT abdomen pelvis wo con DATE: 10/08/2024 21:46 INDICATION: back pain, UTI TECHNIQUE: Computed tomography (CT) of the abdomen and pelvis was performed without intravenous contr ast. Delivery of the sagittal and coronal reformats was significantly delayed. Automated exposure con trol and iterative reconstruction technique were employed. The dose-length product was 1665.33 mGy-cm . COMPARISON: 725. FINDINGS: Lower thorax: Unremarkable Liver: Enlarged. Simple right lobe cyst. Biliary/Gallbladder: Gallbladder is elongated, which is a chronic finding. No stones or inflammatory change. No bile duct dilation. Pancreas: No mass or duct dilation. Spleen: Normal. Adrenals:No mass. Kidneys: No suspicious mass, obstructing stone, or hydronephrosis. Bilateral renal atrophy. Multiple simple bilateral cysts. Right lower pole hypodensity, too small to characterize but likely represents a cyst. GI tract: No small or large bowel dilation. Appendix not confidently visualized. Mesentery/Peritoneum: No ascites, mass, or free air. Retroperitoneum: No mass. Atherosclerotic calcifications of intra-abdominal arterial vessels. Pelvis: The urinary bladder is decompressed by Vigil catheter. There is moderate at stranding about t he urinary bladder. Absent uterus. Bilateral ovaries not confidently identified. Soft Tissues: Soft tissues and body wall unremarkable. Bones: No acute osseous finding. Uncomplicated appearing L4-S1 posterior fusion. IMPRESSION: Hepatomegaly. Inflammatory stranding surrounding the urinary bladder, correlate for cystitis. Reviewed, dictated and finalized at [facility].
--- OUTSIDE RECORDS SUMMARY | 2024-10-08 19:32 | XMS_ITS | Clinical Summary ---
Author Organization [facility] Address [address] [place] [id number] Care Team Providers Care Gyroscopic Engineering Technician Name Role Phone None, Provider MD Primary [...] 1954 Hepatitis C 1972 Mammogram Screening 1994 Pneumococcal Vaccine: 50+ Years (1 of 1 - PCV) 2004 Zoster Vaccines (1 of 2) 2004 RSV Immunization or 60+ Years (1 - Risk 60-74 years 1-dose series) 2014 Annual Medicare Wellness Visit 2019 Dexa Scan (General) 2019 COVID-19 Vaccine ( season) 2023 02/06/2023, 04/20/2022, 06/05/2021, Additional history exists DTaP, Tdap and Td [...] patient's age to complete this topic Insurance GUDELIA Care Teams Gyroscopic Engineering Technician Relationship Specialty Start Date End Date None, Provider, MD PCP - General UNKNOWN PHYSICIAN SPECIALTY 11/03/23
--- OUTSIDE RECORDS SUMMARY | 2024-10-08 19:32 | XMS_ITS ---
Author Name Auto Generated, Auto Generated Organization [facility] Address [address] [place] [address] Phone [phone] Care Team Providers Care Milking System Installer Name Role Phone Jacob Castro Unavailable AcCurtis Unavailable [phone] Functional Status No Results Mental Status No [...] CAPSULE Oral PRN Every 6 Hours 2 [id number] *DO NOT EXCEED 3GM/DAY APAP FROM ALL [...] 2021 * End Date: * Text: * intermediate (current) use of aspirin* Code: * Start Date: TueJun 03 00:00:00 EDT 2021 * End Date: * Text: * director long term care (current) use of insulin* Code: * Start Date: TueJun 03 00:00:00 EDT 2021 * End Date: * Text: * director long term care (current) use of anticoagulants* Code: * Start [...]
--- OUTSIDE RECORDS SUMMARY | 2024-10-08 19:32 | XMS_ITS | Continuity of Care Document ---
Author Name [facility] Organization [facility] Care Team Providers Care Production Lapping Machine Operator Name Role Phone [facility] Unavailable Unavailable Problems Combined list of problems from [facility] and [facility] facilities. It does not include entries that were removed or entered in error. Problem Status Onset Date Problem Type Date of Resolution Comments Source Hyperlipidemia (SNOMED CT 51529161) Active Condition [facility] Seizures * Active Condition [facility] Allergies, Adverse Reactions, Alerts Combined list of allergies from [facility] facilities. It does not include entries that were removed or entered in error. Substance Category Reaction Severity Reaction type Status Date Reported Comments Source VANCOMYCIN Propensity to adverse reactions to drug (finding) Erythema active 3 [facility] Immunizations Combined list of available immunizations from the [facility] and [facility] facilities. Immunization Series Date Given Administered By Site Reaction Lot Number CVX Code Drug Human Resource Analyst Status Comments Source INFLUENZA, UNSPECIFIED FORMULATION 2012 88 complet ed [facility] TDAP 2012 115 complet ed Right Deltoid [facility] Social History Combined list of available smoking, tobacco, and other social history from [facility] and [facility] facilities. Social History Type Response Date Comment Javier nelson Tobacco smoking status NHIS LIFETIME NON-USER OF TOBACCO 01/09/2013 [facility]
--- OUTSIDE RECORDS SUMMARY | 2024-10-08 19:32 | XMS_ITS | Patient Health Record ---
Author Organization [facility] Address [address] [place] [address] Care Team Providers Care Multiple Wire Sawyer Name Role Phone Kaleigh Garduno Unavailable [phone] Reason For Referral No Information Medications Medication SIG (Take, Route, Frequency, Duration) Notes Start Date End Date Status clonazePAM 1 MG Oral Acti ve Trintellix 10 MG Oral Act agustina ARIPiprazole 2 MG Oral Ac tive Divalproex Sodium 125 MG Oral Active amLODIPine Besylate 10 MG Oral Active oxyCODONE HCl 30 MG Oral Active Viibryd 20 MG Oral Active DULoxetine HCl 60 MG Oral Active Metoprolol Tartrate 50 MG Oral Active Levothyroxine Sodium 25 MCG Oral Active Viibryd 40 MG Oral Active Gabapentin 400 MG Oral Ac tive Levemir FlexPen 100 unit/mL (3 mL) SUBCUTANEOUS *Reorder from [facility] for eRx and Interaction Alerts* Active Escitalopram Oxalate 20 MG Oral Active Valium 5 MG Oral Active Atorvastatin Calcium 10 MG Oral Active Aricept 5 MG Oral Active Ingrezza 40 mg Oral Activ e Zolpidem Tartrate 10 MG Oral Active busPIRone HCl 5 MG Oral A ctive Abilify 2 MG Oral Active Escitalopram Oxalate 10 MG Oral Active Trintellix 20 MG Oral Act agustina Donepezil HCl 5 MG Oral A ctive DULoxetine HCl 30 MG Oral Active Benztropine Mesylate 0.5 MG Oral Active clonazePAM 0.5 MG Oral Ac tive Furosemide 20 MG Oral Act agustina Zolpidem Tartrate ER 6.25 mg Oral Active Gabapentin 800 MG Oral Ac tive Metoclopramide HCl 10 MG Oral Active Lisinopril 40 MG Oral Act agustina LORazepam 0.5 MG Oral Act agustina ALPRAZolam 0.25 MG Oral A ctive Plan Of Treatment No Information
[2024-10-08 20:50] LABS: Add Urine Microscopic? YES; Appearance Urine Turbid (Clear); Glucose Urine UA Negative (Negative); Leukocyte Esterase Ur 3+ LEU/UL (Negative); Nitrate Urine Positive (Negative); Non Pathogenic Casts 0-2; Specific Grav Ur 1.015 (1.001-1.035)
[2024-10-08 21:15] LABS: Hematocrit 33.3 % (37.0-47.0); Hemoglobin 10.1 g/dL (12.0-15.0); Immature Granulocyte Percent A 0.4 % (0-0.5); Lymphocytes Absolute Auto 1.07 K/mm3 (0.9-3.2); Mean Corpuscular HGB Conc 30.3 g/dl (32-36); Mean Corpuscular Hemoglobin 29.9 pg (26-34); Mean Corpuscular Volume 98.5 fl (80-100); Nucleated Red Blood Cells Absolute Auto 0.000 K/mm3 (0.0-0.012); Nucleated Red Blood Cells Perc 0.0 % (0.0-0.2); Platelet Count Result 180 k/mm3 (150-375); Red Blood Count 3.38 M/mm3 (4.2-5.4); White Blood Count 7.8 K/mm3 (4.5-10.0)
--- OUTSIDE RECORDS SUMMARY | 2024-10-08 21:21 | XMS_ITS | Continuity of Care Document ---
Author Name [facility] Organization [facility] Care Team Providers Care Chain Saw Operator Name Role Phone [facility] Unavailable Unavailable Problems Combined list of problems from [facility] and [facility] facilities. It does not include entries that were removed or entered in error. Problem Status Onset Date Problem Type Date of Resolution Comments Source Hyperlipidemia (SNOMED CT 18017548) Active Condition [facility] Seizures * Active Condition [facility] Allergies, Adverse Reactions, Alerts Combined list of allergies from [facility] facilities. It does not include entries that were removed or entered in error. Substance Category Reaction Severity Reaction type Status Date Reported Comments Source VANCOMYCIN Propensity to adverse reactions to drug (finding) Erythema active 3 [facility] Immunizations Combined list of available immunizations from the [facility] and [facility] facilities. Immunization Series Date Given Administered By Site Reaction Lot Number CVX Code Drug Frit Maker Status Comments Source INFLUENZA, UNSPECIFIED FORMULATION 2012 88 complet ed [facility] TDAP 2012 115 complet ed Right Deltoid [facility] Social History Combined list of available smoking, tobacco, and other social history from [facility] and [facility] facilities. Social History Type Response Date Comment Javier nelson Tobacco smoking status NHIS LIFETIME NON-USER OF TOBACCO 01/09/2013 [facility]
--- OUTSIDE RECORDS SUMMARY | 2024-10-08 21:21 | XMS_ITS ---
Author Name Auto Generated, Auto Generated Organization [facility] Address [address] [place] [address] Phone [phone] Care Team Providers Care Electric Meter Repairer Name Role Phone Jacob Castro Unavailable [phone] AcCurtis Unavailable Functional Status No Results Mental [...] CAPSULE Oral PRN Every 6 Hours 2 [id number] *DO NOT EXCEED 3GM/DAY APAP FROM ALL [...] 2021 * End Date: * Text: * detention (current) use of aspirin* Code: * Start Date: TueJun 03 00:00:00 EDT 2021 * End Date: * Text: * transportation officer (current) use of insulin* Code: * Start Date: TueJun 03 00:00:00 EDT 2021 * End Date: * Text: * transportation officer (current) use of anticoagulants* Code: * Start [...]
--- OUTSIDE RECORDS SUMMARY | 2024-10-08 21:21 | XMS_ITS | Clinical Summary ---
Author Organization [facility] Address [address] [place] [address] Care Team Providers Care Electrical And Instrument Engineer Name Role Phone None, Provider MD Primary [...] complete this topic Insurance GUDELIA Care Teams Electrical And Instrument Engineer Relationship Specialty Start Date End Date None, Provider, MD PCP - General UNKNOWN PHYSICIAN SPECIALTY 11/03/23
[2024-10-08] MEDS: PHENAZOPYRIDINE HCL 100 MG TABLET 200 MG PO (21:58)
--- NOTE | 2024-10-08 22:12 | ED_ITS ---
HPI - Female Genitourinary General Chief complaint: Urogenital-Female <Brynn Rangel PA-C - Last Filed: 10/09/24 03:06> Stated complaint: abdominal and back pain, concern bladder infection <Brynn Rangel PA-C - Last Filed: 10/09/24 03:06> Time Seen by Provider: 10/08/24 20:53 <POLO Wiseman Last Filed: 10/09/24 03:06> Source: patient <Brynn Rangel PA-C - Last Filed: 10/09/24 03:06> Mode of arrival: EMS <Brynn Rangel PA-C - Last Filed: 10/09/24 03:06> Limitations: no limitations <POLO Wiseman Last Filed: 10/09/24 03:06> History of Present Illness HPI Narrative: This is a 69-year-old female that presents to the emergency department for bladder spasms. Has chronic indwelling Vigil, feels she has a bladder infection. Also endorsing lower abdominal, back pain. Denies fevers, vomiting, hematuria. <Brynn Rangel PA-C - Last Filed: 10/09/24 03:06> Related Data Home medications: Home Medications ?Medication ?Instructions ?Recorded ?Confirmed ?Last Taken ?Type acetaminophen 500 mg tablet 1,000 mg PO BID Pain 07/10/20 10/09/24 08/31/24 History (Tylenol Extra Strength) multivit with minerals-iron 18 1 tablet PO DAILY 03/06/21 10/09/24 08/31/24 History mg-folic ac 400 mcg-vit K 25 mcg tablet (Adults Multivitamin) aspirin 81 mg tablet,delayed 81 mg PO Q12H 10/30/21 10/09/24 08/31/24 History release clotrimazole-betamethasone 1 1 applic topical BID 05/18/23 10/09/24 08/31/24 History %-0.05 % topical cream dextrin 3 gram/4 gram oral powder 2 tsp PO TID PRN Constipation 05/18/23 10/09/24 08/31/24 History (Clear Fiber) ferrous sulfate 325 mg (65 mg 325 mg PO DAILY 1110/09/24 08/31/24 History iron) tablet lactobacillus combination no.9 1 cap PO HS 02/14/24 10/09/24 08/30/24 History nystatin 100,000 unit/gram topical 1 applic topical DAILY 02/14/24 10/09/24 08/31/24 History cream solifenacin 5 mg tablet 5 mg PO DAILY 07/31/24 10/09/24 08/31/24 History apixaban 2.5 mg tablet (Eliquis) 2.5 mg PO Q12H 08/31/24 10/09/24 08/31/24 History icosapent ethyl 1 gram capsule 2 g PO Q12H 08/31/24 10/09/24 08/31/24 History (Vascepa) lisinopril 5 mg tablet 5 mg PO HS 08/31/24 10/09/24 08/30/24 History quetiapine 50 mg tablet 50 mg PO Q12H 08/31/24 10/09/24 08/31/24 History tramadol 50 mg tablet 50 mg PO HS 08/31/24 10/09/24 08/30/24 History insulin glargine U-300 conc 300 55 unit subcut Q12H 09/20/24 10/09/24 Unknown History unit/mL (3 mL) subcutaneous pen (Toujeo Max U-300 SoloStar) insulin lispro 100 unit/mL 10 unit subcut TIDWMEAL 09/20/24 10/09/24 Unknown History subcutaneous pen (Humalog KwikPen (U-100) Insulin) <Brynn Rangel PA-C - Last Filed: 10/09/24 03:06> Allergies/Adverse reactions: Allergies Allergy/AdvReac Type Severity Reaction Status Date / Time ciprofloxacin Allergy Mild Hives Verified 10/09/24 02:15 metronidazole Allergy Mild Hives Verified 10/09/24 02:15 divalproex sodium Allergy Unknown Unknown Verified 10/09/24 02:15 vancomycin Allergy Unknown Unknown Verified 10/09/24 02:15 <Brynn Rangel PA-C - Last Filed: 10/09/24 03:06> Review of Systems 2 Review of Systems: All systems reviewed & are unremarkable except as noted in HPI and below <Brynn Rangel PA-C - Last Filed: 10/09/24 03:06> [facility] Past Medical History Medical History: Medical History Hypothyroidism Mild cognitive impairment with memory loss Obstructive sleep apnea on CPAP Insulin dependent type 2 diabetes mellitus Chronic venous insufficiency Diabetic gastroparesis Chronic indwelling Vigil catheter neurogenic bladder Dementia with behavioral disturbance Morbid obesity with BMI of 40.0-44.9, adult Vitamin D deficiency, unspecified Severe recurrent major depressive disorder with psychotic features Post-menopausal Polypharmacy Mixed hyperlipidemia Gout Dyskinesia, tardive Diabetic nephropathy associated with type 2 diabetes mellitus Depressive type psychosis Chronic pain disorder Chronic kidney disease, stage III (moderate) Benzodiazepine abuse, continuous Anxiety Antipsychotic-induced akathisia Pulmonary embolism (2020) Benign essential hypertension Brain hypoxia Chronic obstructive pulmonary disease Psychophysiological insomnia <Brynn Rangel PA-C - Last Filed: 10/09/24 03:06> Surgical History Surgical History: Surgical History History of section History of hysterectomy History of back surgery <Brynn Rangel PA-C - Last Filed: 10/09/24 03:06> Family History Family History: Family History Father Diabetes mellitus Hypertension Patient's father is , Onset Age: 75 Family history of renal failure Heart disease Cancer Mother Family history of malignant neoplasm of stomach Hypertension Cancer Thyroid disorder Sibling Depression Other Family history of arthritis <Brynn Rangel PA-C - Last Filed: 10/09/24 03:06> Social History Social History: Social History Social History: At home she uses a walker and wheelchair to ambulate Surrogate medical decision maker: Serjio Michel, spouse. Code status: Full code. Smoking status: Never smoker Second hand tobacco smoke exposure: Yes Alcohol intake: never Substance use: never Substance use type: marijuana Other substance usage details: hx of marijuana use 2022 Do You Feel Safe in your Home?: Yes Lack of Transportation: No Lack of Food: Never True Current Housing: I Have Housing Concerned About Future Housing: No Difficulty Paying Gas/Electric Bills: No Difficulty Paying for Meds: No Currently Unemployed: No Education: High School Diploma/GED Difficulty w/ Childcare or Family Care: No Living arrangements: with family Additional living arrangements comments: She lives at home with her and 2 daughters. Her daughters help at night and she has caregivers as well. Occupation/Education: retired Spiritual care concerns: No <Brynn Rangel PA-C - Last Filed: 10/09/24 03:06> Exam 2 Narrative: GENERAL: Well-appearing, well-nourished, and in no acute distress. HEAD: Normocephalic, atraumatic. EYES: EOMI. CHEST: Clear to auscultation. No respiratory distress. No wheezes rales or rhonchi HEART: Regular rate and rhythm. No murmur heard. Normal peripheral pulses. ABDOMEN: Soft, nontender, nondistended, normal active bowel sounds. EXTREMITIES: Normal range of motion. No edema. SKIN: Warm, dry, no rash. NEURO: No focal deficits. Alert and oriented x3. PSYCH: Normal mood and affect <Brynn Rangel PA-C - Last Filed: 10/09/24 03:06> Course DIRECTOR OF MEDICARE/PA Physician Supervision This visit was performed by both a physician and an APC. I performed all aspects of the MDM as documented. <Walter Nobles MD - Last Filed: 10/09/24 05:08> Consultations Consultation #1: Spoke with hospitalist about patient and workup who accepts admission < Brynn Rangel PA-C - Last Filed: 10/09/24 03:06> Date: 10/09/24 <POLO Wiseman Last Filed: 10/09/24 03:06> Vital Signs Vital signs: Vital Signs Temperature 36.5 C 10/08/24 19:45 Pulse Rate 98 10/08/24 19:45 Respiratory Rate 18 10/08/24 19:45 Blood Pressure 153/116 H 10/08/24 19:45 Pulse Oximetry 100 10/08/24 19:45 Oxygen Delivery Room Air 10/08/24 19:45 Temperature 29.5 C L 10/09/24 04:00 Pulse Rate 72 10/09/24 04:00 Respiratory Rate 14 10/09/24 04:00 Blood Pressure 154/93 H 10/09/24 04:00 Pulse Oximetry 100 10/09/24 04:00 Oxygen Delivery Room Air 10/08/24 19:45 <Brynn Rangel PA-C - Last Filed: 10/09/24 03:06> Vital Signs Temperature 36.5 C 10/08/24 19:45 Pulse Rate 98 10/08/24 19:45 Respiratory Rate 18 10/08/24 19:45 Blood Pressure 153/116 H 10/08/24 19:45 Pulse Oximetry 100 10/08/24 19:45 Oxygen Delivery Room Air 10/08/24 19:45 Temperature 29.5 C L 10/09/24 04:00 Pulse Rate 72 10/09/24 04:00 Respiratory Rate 14 10/09/24 04:00 Blood Pressure 154/93 H 10/09/24 04:00 Pulse Oximetry 100 10/09/24 04:00 Oxygen Delivery Room Air 10/08/24 19:45 <Walter Nobles MD - Last Filed: 10/09/24 05:08> MDM - Female Genitourinary MDM Narrative Medical decision making narrative: Patient presents to the emergency department for urinary symptoms. She is afebrile and nontoxic appearing. Cbc without leukocytosis. Metabolic panel with kidney function that is around her baseline. Urine with evidence of infection. Vigil catheter was exchanged, patient started on IV antibiotics. The ER patient experienced an episode of hypoxia with oxygen saturation in the low 80s on room air. Placed on 4 L nasal cannula. She does have history of sleep apnea. BNP is not concerningly elevated. EKG without concerning changes. Chest x-ray without acute cardiopulmonary abnormality. Patient will be admitted for further management <Brynn Rangel PA-C - Last Filed: 10/09/24 03:06> Differential Diagnosis Differential diagnosis: Likely urinary tract infection and other (pneumonia, sleep apnea, CHF) < Brynn Rangel PA-C - Last Filed: 10/09/24 03:06> Lab Data Attestation: I reviewed the patient's lab results. <Brynn Rangel PA-C - Last Filed: 10/09/24 03:06> Result diagrams: 10/08/24 21:08 10/08/24 21:56 <Brynn Rangel PA-C - Last Filed: 10/09/24 03:06> Labs: Lab Results 10/08/24 10/08/24 10/08/24 Range/Units 20:39 21:08 21:56 WBC 7.8 (4.5-10.0) K/mm3 RBC 3.38 L (4.2-5.4) M/mm3 Hgb 10.1 L (12.0-15.0) g/dL Hct 33.3 L (37.0-47.0) % MCV 98.5 (80-100) fl MCH 29.9 (26-34) pg MCHC 30.3 L (32-36) g/dl RDW 15.4 H (11.5-14.5) % Plt Count 180 (150-375) k/mm3 MPV 10.7 H (7.4-10.4) fl Immature Gran % (Auto) 0.4 (0-0.5) % Neut % (Auto) 72.6 (45.5-73.1) % Lymph % (Auto) 13.7 L (18.3-44.2) % [place] % (Auto) 8.7 H (2.6-8.5) % Eos % (Auto) 4.2 (0-4.4) % Baso % (Auto) 0.4 (0.2-1.2) % Lymph # (Auto) 1.07 (0.9-3.2) K/mm3 [place] # (Auto) 0.7 H (0.1-0.6) K/mm3 Eos # (Auto) 0.3 (0-0.3) K/mm3 Baso # (Auto) 0.0 (0.0-0.1) K/mm3 Abs Immat Gran (auto) 0.03 (0.00-0.031) K/mm3 Absolute Neuts (auto) 5.7 (1.3-6.7) K/mm3 Absolute Nucleated RBC 0.000 (0.0-0.012) K/mm3 Nucleated RBC % 0.0 (0.0-0.2) % Sodium 141 (137-145) mmol/L Potassium 4.3 (3.4-5.0) mmol/L Chloride 106 (98-107) mmol/L Carbon Dioxide 26 (22-30) mmol/L Anion Gap 9 (4-12) mmol/L BUN 40 H (7-17) mg/dL Creatinine 1.55 H (0.7-1.0) mg/dL Estim Creat Clear Calc Not Reportable Estimated GFR 33 L (59 - ) Glucose 170 H (65-110) mg/dL Calcium 10.6 H (8.4-10.2) mg/dL Total Bilirubin 0.4 (0.2-1.3) mg/dL AST 30 (14-36) U/L ALT 23 (6-35) U/L Alkaline Phosphatase 95 (38-126) U/L NT-Pro-B Natriuret Pep 200 H (19.9-100) pg/mL Total Protein 7.1 (6.3-8.2) g/dL Albumin 3.8 (3.5-5.1) g/dL Urine Color Yellow (Yellow) Urine Appearance Turbid H (Clear) Urine pH 6.0 (5.0-9.0) Ur Specific [place] 1.015 (1.001-1.035) Urine Protein 2+ H (Negative) mg/dL Urine Glucose (UA) Negative (Negative) mg/dL Urine Ketones Negative (Negative) mg/dL Ur Blood (Man) 2+ H (Negative) Urine Nitrate Positive H (Negative) Urine Bilirubin Negative (Negative) Urine Urobilinogen 0.2 (<2.0) mg/dL Leukocyte Esterase Rfl 3+ H (Negative) ARTURO/UL Urine RBC 6-10 H (0-2) /hpf Urine WBC >100 H (0-3) /hpf Ur Squamous Epith Cells None seen (Few) /hpf Urine Bacteria 4+ H /hpf Urine Casts 0-2 <Brynn Rangel PA-C - Last Filed: 10/09/24 03:06> Lab Results 10/08/24 10/08/24 10/08/24 Range/Units 20:39 21:08 21:56 WBC 7.8 (4.5-10.0) K/mm3 RBC 3.38 L (4.2-5.4) M/mm3 Hgb 10.1 L (12.0-15.0) g/dL Hct 33.3 L (37.0-47.0) % MCV 98.5 (80-100) fl MCH 29.9 (26-34) pg MCHC 30.3 L (32-36) g/dl RDW 15.4 H (11.5-14.5) % Plt Count 180 (150-375) k/mm3 MPV 10.7 H (7.4-10.4) fl Immature Gran % (Auto) 0.4 (0-0.5) % Neut % (Auto) 72.6 (45.5-73.1) % Lymph % (Auto) 13.7 L (18.3-44.2) % [place] % (Auto) 8.7 H (2.6-8.5) % Eos % (Auto) 4.2 (0-4.4) % Baso % (Auto) 0.4 (0.2-1.2) % Lymph # (Auto) 1.07 (0.9-3.2) K/mm3 [place] # (Auto) 0.7 H (0.1-0.6) K/mm3 Eos # (Auto) 0.3 (0-0.3) K/mm3 Baso # (Auto) 0.0 (0.0-0.1) K/mm3 Abs Immat Gran (auto) 0.03 (0.00-0.031) K/mm3 Absolute Neuts (auto) 5.7 (1.3-6.7) K/mm3 Absolute Nucleated RBC 0.000 (0.0-0.012) K/mm3 Nucleated RBC % 0.0 (0.0-0.2) % Sodium 141 (137-145) mmol/L Potassium 4.3 (3.4-5.0) mmol/L Chloride 106 (98-107) mmol/L Carbon Dioxide 26 (22-30) mmol/L Anion Gap 9 (4-12) mmol/L BUN 40 H (7-17) mg/dL Creatinine 1.55 H (0.7-1.0) mg/dL Estim Creat Clear Calc Not Reportable Estimated GFR 33 L (59 - ) Glucose 170 H (65-110) mg/dL Calcium 10.6 H (8.4-10.2) mg/dL Total Bilirubin 0.4 (0.2-1.3) mg/dL AST 30 (14-36) U/L ALT 23 (6-35) U/L Alkaline Phosphatase 95 (38-126) U/L NT-Pro-B Natriuret Pep 200 H (19.9-100) pg/mL Total Protein 7.1 (6.3-8.2) g/dL Albumin 3.8 (3.5-5.1) g/dL Urine Color Yellow (Yellow) Urine Appearance Turbid H (Clear) Urine pH 6.0 (5.0-9.0) Ur Specific [place] 1.015 (1.001-1.035) Urine Protein 2+ H (Negative) mg/dL Urine Glucose (UA) Negative (Negative) mg/dL Urine Ketones Negative (Negative) mg/dL Ur Blood (Man) 2+ H (Negative) Urine Nitrate Positive H (Negative) Urine Bilirubin Negative (Negative) Urine Urobilinogen 0.2 (<2.0) mg/dL Leukocyte Esterase Rfl 3+ H (Negative) ARTURO/UL Urine RBC 6-10 H (0-2) /hpf Urine WBC >100 H (0-3) /hpf Ur Squamous Epith Cells None seen (Few) /hpf Urine Bacteria 4+ H /hpf Urine Casts 0-2 <Walter Nobles MD - Last Filed: 10/09/24 05:08> Imaging Data Radiologist's impression: ITS Impressions Abdomen/Pelvis CT 10/08/24 21:50 IMPRESSION: Hepatomegaly. Inflammatory stranding surrounding the urinary bladder, correlate for cystitis. Chest x-ray: No acute findings <Brynn Rangel PA-C - Last Filed: 10/09/24 03:06> ECG Data EKG #1: ECG completion date: 10/09/24 <Brynn Rangel PA-C - Last Filed: 10/09/24 03:06> EKG Interpretation: normal rate, sinus rhythm, no ST changes and normal QT <POLO Wiseman Last Filed: 10/09/24 03:06> Critical Care Time Critical Care Time Critical Care Time: Yes <Brynn Rangel PA-C - Last Filed: 10/09/24 03:06> Total Critical Care Time: 35 <POLO Wiseman Last Filed: 10/09/24 03:06> Discharge Plan Discharge Clinical Impression: Acute hypoxic respiratory failure, Acute urinary tract infection <Brynn Rangel PA-C - Last Filed: 10/09/24 03:06> Patient Disposition: Still a Patient <Brynn Rangel PA-C - Last Filed: 10/09/24 03:06> Condition: Improved <Brynn Rangel PA-C - Last Filed: 10/09/24 03:06>
[2024-10-08 22:59] LABS: Alanine Aminotransferase 23 U/L (6-35); Albumin Level 3.8 g/dL (3.5-5.1); Alkaline Phosphatase 95 U/L (38-126); Anion Gap 9 mmol/L (4-12); Aspartate Amino Transferase 30 U/L (14-36); Bilirubin,Total 0.4 mg/dL (0.2-1.3); Blood Urea Nitrogen 40 mg/dL (7-17); Calcium 10.6 mg/dL (8.4-10.2); Carbon Dioxide 26 mmol/L (22-30); Chloride 106 mmol/L (98-107); Estimated Glomerular Filt Rate 33; Glucose 170 mg/dL (65-110); Potassium 4.3 mmol/L (3.4-5.0); Sodium 141 mmol/L (137-145); Total Protein 7.1 g/dL (6.3-8.2)
[2024-10-08] MEDS: cefTRIAXone 1 GM in SODIUM CHLORIDE 0.9% IV 50 ML 100 ML IVPB (23:32)
[2024-10-09] VITALS (15 sets, daily range): BP systolic 140–171; BP diastolic 62–93; PULSE 70–84; RESP 10–20; TEMP 29.5–37.1; O2SAT 92–100; BMI 42.3
--- NOTE | 2024-10-09 00:05 | ECG_ITS ---
Test Date: 2024-10-09 00:08:05 Measurements Intervals [place] Rate: 75 P: 51 [place]: 195 QRS: -3 QRSD: 101 T: 41 QT: 387 QTc: 432 Interpretive Statements SINUS RHYTHM INTRAVENTRICULAR CONDUCTION DELAY NONSPECIFIC T WAVE ABNORMALITY Compared to ECG 08/31/2024 12:21:16 NO SIGNIFICANT CHANGES Electronically Signed On 10-09-2024 16:40:56 CDT by Laura Matrin M.D.
[2024-10-09] MEDS: IPRATROPIUM 0.5 MG/ALBUTEROL SULFATE 2.5 MG AMPUL.NEB 3 ML INHALATION (00:09)
[2024-10-09 00:23] LABS: NT Pro B Type Natriuretic Pept 200 pg/mL (19.9-100)
--- NOTE | 2024-10-09 14:57 | PM.IMHP ---
H&P: HPI History of Present Illness Date/Time: 10/09/24 14:57 Chief Complaint: Urogenital-Female Narrative: ER-HPI Narrative: This is a 69-year-old female that presents to the emergency department for bladder spasms. Has chronic indwelling Vigil, feels she has a bladder infection. Also endorsing lower abdominal, back pain. Denies fevers, vomiting, hematuria. patient with chronic indwelling urinary catheter, history of bladder spasms, and recurrent UTI presented to the ER with complaints of lower abdominal and back pain, denies any fever, chills, vomiting or diarrhea. patient with 3+ leukocytes Esterase, >100 white counts, 4+ bacteria and symptomatic, most likely patient has chronic indwelling associated UTI patient is started on ceftriaxone, will follow up urine culture and sensitivity and plan, patient stats feels better compared to when she came arrived. will monitor and have PT/OT evaluate the patient. will PT/OT work with the patient and further recommendation to follow. Review of Systems Review of Systems: All systems reviewed & are unremarkable except as noted in HPI and below PMFSH Past Medical History Medical History Hypothyroidism Mild cognitive impairment with memory loss Obstructive sleep apnea on CPAP Insulin dependent type 2 diabetes mellitus Chronic venous insufficiency Diabetic gastroparesis Chronic indwelling Vigil catheter neurogenic bladder Dementia with behavioral disturbance Morbid obesity with BMI of 40.0-44.9, adult Vitamin D deficiency, unspecified Severe recurrent major depressive disorder with psychotic features Post-menopausal Polypharmacy Mixed hyperlipidemia Gout Dyskinesia, tardive Diabetic nephropathy associated with type 2 diabetes mellitus Depressive type psychosis Chronic pain disorder Chronic kidney disease, stage III (moderate) Benzodiazepine abuse, continuous Anxiety Antipsychotic-induced akathisia Pulmonary embolism (2020) Benign essential hypertension Brain hypoxia Chronic obstructive pulmonary disease Psychophysiological insomnia Surgical History Surgical History History of section History of hysterectomy History of back surgery Family History Family History Father Diabetes mellitus Hypertension Patient's father is , Onset Age: 75 Family history of renal failure Heart disease Cancer Mother Family history of malignant neoplasm of stomach Hypertension Cancer Thyroid disorder Sibling Depression Other Family history of arthritis Social History Social History Social History: At home she uses a walker and wheelchair to ambulate Surrogate medical decision maker: Serjio Anand, spouse. Code status: Full code. Smoking status: Never smoker Second hand tobacco smoke exposure: Yes Alcohol intake: never Substance use: never Substance use type: marijuana Other substance usage details: hx of marijuana use 2022 Do You Feel Safe in your Home?: Yes Lack of Transportation: No Lack of Food: Never True Current Housing: I Have Housing Concerned About Future Housing: No Difficulty Paying Gas/Electric Bills: No Difficulty Paying for Meds: No Currently Unemployed: No Education: High School Diploma/GED Difficulty w/ Childcare or Family Care: No Living arrangements: with family Additional living arrangements comments: She lives at home with her and 2 daughters. Her daughters help at night and she has caregivers as well. Occupation/Education: retired Spiritual care concerns: No Meds Home Medications and Allergies Home Medications ?Medication ?Instructions ?Recorded ?Confirmed ?Type acetaminophen 500 mg tablet 1,000 mg PO BID Pain 07/10/20 10/09/24 History (Tylenol Extra Strength) multivit with minerals-iron 18 1 tablet PO DAILY 03/06/21 10/09/24 History mg-folic ac 400 mcg-vit K 25 mcg tablet (Adults Multivitamin) aspirin 81 mg tablet,delayed 81 mg PO Q12H 10/30/21 10/09/24 History release clotrimazole-betamethasone 1 1 applic topical BID 05/18/23 10/09/24 History %-0.05 % topical cream dextrin 3 gram/4 gram oral powder 2 tsp PO TID PRN Constipation 05/18/23 10/09/24 History (Clear Fiber) ferrous sulfate 325 mg (65 mg 325 mg PO DAILY 02/14/24 10/09/24 History iron) tablet lactobacillus combination no.9 1 cap PO HS 02/14/24 10/09/24 History nystatin 100,000 unit/gram topical 1 applic topical DAILY 02/14/24 10/09/24 History cream benztropine 0.5 mg tablet See Rx Instructions .Route 04/13/24 10/09/24 Rx .COMPLEX #270 tabs blood-glucose,adding machine mechanic,cont #1 ea 04/13/24 10/09/24 Rx (FreeStyle Mohan 3 [place]) metoprolol tartrate 50 mg tablet 50 mg PO Q12H #60 tabs 05/21/24 10/09/24 Rx pen needle, diabetic 31 gauge x #400 ea 06/04/24 10/09/24 Rx 08/03 blood-glucose sensor (FreeStyle #1 ea 07/30/24 10/09/24 Rx Mohan 3 Sensor device) cholecalciferol (vitamin D3) 1,250 See Rx Instructions .Route 08/03/24 10/09/24 Rx mcg (50,000 unit) capsule .COMPLEX #12 caps memantine ER 28 mg-donepezil 10 mg See Rx Instructions .Route 08/20/24 10/09/24 Rx capsule sprinkle,ext.release 24 hr .COMPLEX #90 caps (Namzaric) blood-glucose sensor (FreeStyle #2 ea 08/24/24 10/09/24 Rx Mohan 3 Plus Sensor device) apixaban 2.5 mg tablet (Eliquis) 2.5 mg PO Q12H 08/31/24 10/09/24 History icosapent ethyl 1 gram capsule 2 g PO Q12H 08/31/24 10/09/24 History (Vascepa) lisinopril 5 mg tablet 5 mg PO HS 08/31/24 10/09/24 History quetiapine 50 mg tablet 50 mg PO Q12H 08/31/24 10/09/24 History tramadol 50 mg tablet 50 mg PO HS 08/31/24 10/09/24 History clonidine HCl 0.1 mg tablet See Rx Instructions .Route 09/10/24 10/09/24 Rx .COMPLEX #180 tabs insulin glargine U-300 conc 300 50 unit subcut Q12H 09/20/24 10/09/24 History unit/mL (3 mL) subcutaneous pen (Toujeo Max U-300 SoloStar) insulin lispro 100 unit/mL 10 unit subcut TIDWMEAL 09/20/24 10/09/24 History subcutaneous pen (Humalog KwikPen (U-100) Insulin) tirzepatide 5 mg/0.5 mL 5 mg (0.5 mL) subcut WEEKLY #6 mL 09/20/24 10/09/24 Rx subcutaneous pen injector (Uli) lactulose 10 gram/15 mL oral See Rx Instructions .Route 09/22/24 10/09/24 Rx solution .COMPLEX #3,784 mL blood sugar diagnostic (FreeStyle #25 ea 10/02/24 10/09/24 Rx Precision Aden Strips) pregabalin 100 mg capsule 100 mg PO TID #90 caps 10/08/24 10/09/24 Rx duloxetine 60 mg capsule,delayed 30 mg PO QHS 10/09/24 10/09/24 History release rosuvastatin 20 mg tablet 20 mg PO HS 10/09/24 10/09/24 History vibegron 75 mg tablet (Gemtesa) 75 mg PO DAILY 10/09/24 10/09/24 History Allergies Allergy/AdvReac Type Severity Reaction Status Date / Time ciprofloxacin Allergy Mild Hives Verified 10/09/24 02:15 metronidazole Allergy Mild Hives Verified 10/09/24 02:15 divalproex sodium Allergy Unknown Unknown Verified 10/09/24 02:15 vancomycin Allergy Unknown Unknown Verified 10/09/24 02:15 Vital Signs Vital Signs - 24 hr 10/08/24 19:45 10/08/24 20:38 10/08/24 20:43 Temperature 36.5 C Pulse Rate 98 78 92 Respiratory Rate 18 19 15 Blood Pressure 153/116 H 143/64 H Pulse Oximetry 100 97 97 Oxygen Delivery Room Air Oxygen Flow Rate 10/08/24 20:51 10/08/24 21:00 10/08/24 21:01 Temperature Pulse Rate 79 77 75 Respiratory Rate 15 10 L 20 Blood Pressure 134/66 Pulse Oximetry 96 94 92 Oxygen Delivery Oxygen Flow Rate 10/08/24 21:15 10/08/24 21:16 10/08/24 21:30 Temperature Pulse Rate 71 73 71 Respiratory Rate 10 L 12 20 Blood Pressure 147/61 H Pulse Oximetry Oxygen Delivery Oxygen Flow Rate 10/08/24 21:31 10/08/24 21:48 10/08/24 21:50 Temperature Pulse Rate 75 71 84 Respiratory Rate 18 10 L Blood Pressure 148/85 H 139/77 Pulse Oximetry 94 Oxygen Delivery Oxygen Flow Rate 10/08/24 22:00 10/08/24 22:01 10/08/24 22:15 Temperature Pulse Rate 71 85 80 Respiratory Rate 9 L 14 18 Blood Pressure 151/64 H Pulse Oximetry 92 93 95 Oxygen Delivery Oxygen Flow Rate 10/08/24 22:16 10/08/24 22:30 10/08/24 22:31 Temperature Pulse Rate 103 H 83 77 Respiratory Rate 16 10 L 12 Blood Pressure 123/60 150/67 H Pulse Oximetry 95 92 91 Oxygen Delivery Oxygen Flow Rate 10/08/24 22:45 10/08/24 22:46 10/08/24 23:00 Temperature Pulse Rate 123 H 105 H 92 Respiratory Rate 11 L 10 L 12 Blood Pressure 148/60 H Pulse Oximetry 92 89 L 94 Oxygen Delivery Oxygen Flow Rate 10/08/24 23:16 10/08/24 23:31 10/08/24 23:45 Temperature Pulse Rate 76 99 86 Respiratory Rate 12 20 23 H Blood Pressure 155/74 H 152/71 H Pulse Oximetry 94 91 91 Oxygen Delivery Oxygen Flow Rate 10/08/24 23:46 10/09/24 00:00 10/09/24 00:09 Temperature Pulse Rate 86 77 76 Respiratory Rate 20 17 20 Blood Pressure 103/53 L Pulse Oximetry 88 L 95 Oxygen Delivery Oxygen Flow Rate 10/09/24 00:15 10/09/24 00:16 10/09/24 00:46 Temperature Pulse Rate 72 70 72 Respiratory Rate 13 12 17 Blood Pressure 161/78 H 140/62 Pulse Oximetry 100 100 98 Oxygen Delivery Oxygen Flow Rate 10/09/24 00:56 10/09/24 02:17 10/09/24 02:28 Temperature 35.2 C L Pulse Rate 70 Respiratory Rate 10 L Blood Pressure 145/87 H Pulse Oximetry 98 100 97 Oxygen Delivery Nasal Cannula Oxygen Flow Rate 2 10/09/24 04:00 10/09/24 08:00 10/09/24 08:53 Temperature 29.5 C L Pulse Rate 72 Respiratory Rate 14 Blood Pressure 154/93 H Pulse Oximetry 100 95 95 Oxygen Delivery Nasal Cannula Nasal Cannula Oxygen Flow Rate 2 2 10/09/24 09:35 10/09/24 14:55 Temperature 36.8 C 36.8 C Pulse Rate 74 84 Respiratory Rate 18 18 Blood Pressure 153/66 H 153/64 H Pulse Oximetry 99 97 Oxygen Delivery Oxygen Flow Rate Exam Narrative: Patient is comfortable, NAD HEENT: eyes are clear and none icteric LUNGS:CTA HEART: RR S1S2 ABD: BS+, Soft and nontender Lower extremities: no edema SKIN: nonjaundiced Neuro: grossly intact. H&P: Results Labs Labs: Short CBC 10/08/24 Range/Units 21:08 WBC 7.8 (4.5-10.0) K/mm3 Hgb 10.1 L (12.0-15.0) g/dL Hct 33.3 L (37.0-47.0) % Plt Count 180 (150-375) k/mm3 BMP 10/08/24 21:56 Sodium 141 Potassium 4.3 Chloride 106 Carbon Dioxide 26 BUN 40 H Creatinine 1.55 H Glucose 170 H Calcium 10.6 H Liver Function 10/08/24 Range/Units 21:56 Total Bilirubin 0.4 (0.2-1.3) mg/dL AST 30 (14-36) U/L ALT 23 (6-35) U/L Alkaline Phosphatase 95 (38-126) U/L Albumin 3.8 (3.5-5.1) g/dL Urine 10/08/24 Range/Units 20:39 Urine Color Yellow (Yellow) Urine Appearance Turbid H (Clear) Urine pH 6.0 (5.0-9.0) Ur Specific [place] 1.015 (1.001-1.035) Urine Protein 2+ H (Negative) mg/dL Urine Glucose (UA) Negative (Negative) mg/dL Assessment and Plan Assessment and plan (1) Indwelling urinary catheter present: Code(s): Z96.0 - Presence of urogenital implants Status: Acute (2) Chronic indwelling Vigil catheter: Code(s): Z97.8 - Presence of other specified devices Status: Acute (3) Neurogenic bladder: Code(s): N31.9 - Neuromuscular dysfunction of bladder, unspecified Status: Chronic (4) UTI (urinary tract infection): Qualifiers: Encounter type: initial encounter Indwelling urinary catheter type: unspecified Urinary tract infection type: catheter-associated UTI Qualified Code(s): T83.511A - Infection and inflammatory reaction due to indwelling urethral catheter, initial encounter; N39.0 - Urinary tract infection, site not specified Code(s): N39.0 - Urinary tract infection, site not specified Status: Acute (5) DM renal manif type II: Code(s): E11.29 - Type 2 diabetes mellitus with other diabetic kidney complication Status: Acute (6) Insulin dependent type 2 diabetes mellitus: Code(s): E11.9 - Type 2 diabetes mellitus without complications; Z79.4 - FDC (current) use of insulin Status: Acute Plan patient with chronic indwelling urinary catheter, history of bladder spasms, and recurrent UTI presented to the ER with complaints of lower abdominal and back pain, denies any fever, chills, vomiting or diarrhea. patient with 3+ leukocytes Esterase, >100 white counts, 4+ bacteria and symptomatic, most likely patient has chronic indwelling associated UTI patient is started on ceftriaxone, will follow up urine culture and sensitivity and plan, patient stats feels better compared to when she came arrived. will monitor and have PT/OT evaluate the patient. will PT/OT work with the patient and further recommendation to follow. Quality VTE Prophylaxis VTE prophylaxis: pharmacologic ordered
[2024-10-09] MEDS: ACETAMINOPHEN 500 MG TABLET 1000 MG PO (17:03)
[2024-10-09] MEDS: PREGABALIN (*CRX) 50 MG CAPSULE 100 MG PO (17:03)
[2024-10-09] MEDS: BENZTROPINE MESYLATE 0.5 MG TABLET BY MOUTH (17:04)
[2024-10-09] MEDS: INSULIN ASPART (*BKC) 100 UNITS/ML SUB-Q (17:09)
[2024-10-09] MEDS: INSULIN ASPART (*BKC) 100 UNITS/ML 10 UNITS SUB-Q (17:09)
[2024-10-09] MEDS: ASPIRIN 81 MG ENTERIC TABLET PO (21:34)
[2024-10-09] MEDS: OMEGA 3 POLYUNSAT FATTY ACIDS 1 GM CAP 2 GM PO (21:34)
[2024-10-09] MEDS: ROSUVASTATIN 20 MG TABLET PO (21:34)
[2024-10-09] MEDS: APIXABAN 2.5 MG TABLET PO (21:35)
[2024-10-09] MEDS: traMADol HCL (*CRX) 50 MG TABLET PO (21:35)
[2024-10-09] MEDS: METOPROLOL TARTRATE 50 MG TAB PO (21:35)
[2024-10-09] MEDS: ACIDOPHILUS/BULGARICUS CHEWABLE TABLET 1 TABLET PO (21:35)
[2024-10-09] MEDS: INSULIN GLARGINE (*BKC) 100 UNITS/ML 50 UNITS SUB-Q (21:38)
[2024-10-09] MEDS: cefTRIAXone 1 GM in SODIUM CHLORIDE 0.9% IV 50 ML 100 ML IVPB (23:38)
[2024-10-10 04:50] VITALS: BP 150/66; PULSE 67; RESP 16; TEMP 36.7; O2SAT 93
[2024-10-10 08:49] VITALS: PULSE 77
[2024-10-10] MEDS: PREGABALIN (*CRX) 50 MG CAPSULE 100 MG PO ×3 (08:49→16:31)
[2024-10-10] MEDS: METOPROLOL TARTRATE 50 MG TAB PO (08:49)
[2024-10-10] MEDS: FERROUS SULFATE 325 MG TABLET DR PO (08:49)
[2024-10-10] MEDS: ACETAMINOPHEN 500 MG TABLET 1000 MG PO ×2 (08:49→16:30)
[2024-10-10] MEDS: BENZTROPINE MESYLATE 0.5 MG TABLET BY MOUTH ×3 (08:50→16:30)
[2024-10-10] MEDS: MULTIVITAMINS /C LUTEIN (CENTRUM SILVER) TABLET *BKC 1 TAB PO (08:50)
[2024-10-10] MEDS: APIXABAN 2.5 MG TABLET PO (08:50)
[2024-10-10] MEDS: OMEGA 3 POLYUNSAT FATTY ACIDS 1 GM CAP 2 GM PO (08:50)
[2024-10-10] MEDS: ASPIRIN 81 MG ENTERIC TABLET PO (08:51)
[2024-10-10] MEDS: INSULIN ASPART (*BKC) 100 UNITS/ML 10 UNITS SUB-Q ×2 (08:59→12:31)
[2024-10-10] MEDS: INSULIN ASPART (*BKC) 100 UNITS/ML SUB-Q (09:00)
[2024-10-10] MEDS: INSULIN GLARGINE (*BKC) 100 UNITS/ML 50 UNITS SUB-Q (09:00)
[2024-10-10] MEDS: MICONAZOLE NITRATE 2% CREAM 30 GM TUBE 1 APPLIC TOPICAL (09:05)
[2024-10-10 11:55] VITALS: O2SAT 92
[2024-10-10 14:00] VITALS: BP 138/68; PULSE 72; RESP 16; TEMP 35.9; O2SAT 95
--- NOTE | 2024-10-10 16:06 | P.DS_ITS ---
DS: Admitting Diagnosis Discharge Date 10/10 Admitting Diagnosis Urogenital-Female DS: Discharge Diagnosis Discharge Diagnosis (1) Indwelling urinary catheter present: Code(s): Z96.0 - Presence of urogenital implants Status: Acute (2) Chronic indwelling Vigil catheter: Code(s): Z97.8 - Presence of other specified devices Status: Acute (3) Neurogenic bladder: Code(s): N31.9 - Neuromuscular dysfunction of bladder, unspecified Status: Chronic (4) UTI (urinary tract infection): Qualifiers: Encounter type: initial encounter Indwelling urinary catheter type: unspecified Urinary tract infection type: catheter-associated UTI Qualified Code(s): T83.511A - Infection and inflammatory reaction due to indwelling urethral catheter, initial encounter; N39.0 - Urinary tract infection, site not specified Code(s): N39.0 - Urinary tract infection, site not specified Status: Acute (5) DM renal manif type II: Code(s): E11.29 - Type 2 diabetes mellitus with other diabetic kidney complication Status: Acute (6) Insulin dependent type 2 diabetes mellitus: Code(s): E11.9 - Type 2 diabetes mellitus without complications; Z79.4 - senior care (current) use of insulin Status: Acute Plan patient with chronic indwelling urinary catheter, history of bladder spasms, and recurrent UTI presented to the ER with complaints of lower abdominal and back pain, denies any fever, chills, vomiting or diarrhea. patient with 3+ leukocytes Esterase, >100 white counts, 4+ bacteria and symptomatic, most likely patient has chronic indwelling associated UTI patient is started on ceftriaxone, will follow up urine culture and sensitivity and plan, patient stats feels better compared to when she came arrived. will monitor and have PT/OT evaluate the patient. will PT/OT work with the patient and further recommendation to follow. DS: Summary Hospital Course Hospital Course: patient with chronic indwelling urinary catheter, history of bladder spasms, and recurrent UTI presented to the ER with complaints of lower abdominal and back pa in, denies any fever, chills, vomiting or diarrhea. patient with 3+ leukocytes Esterase, >100 white counts, 4+ bacteria and symptomatic, most likely patient has chronic indwelling associated UTI patient is started on ceftriaxone, will follow up urine culture and sensitivity and plan, patient stats feels better compared to when she arrived. will monitor and have PT/OT evaluate the patient. will PT/OT work with the patient and further recommendation to follow. Patient clinical symptoms are improving, will discharge today on cefdinir. Time Spent with Patient Time attestation: Total time spent providing and/or coordinating discharge services: Exam Narrative: Patient is comfortable, NAD HEENT: eyes are clear and none icteric LUNGS:CTA HEART: RR S1S2 ABD: BS+, Soft and nontender Lower extremities: no edema SKIN: nonjaundiced Neuro: grossly intact. DS: Data Data Completed and Pending Labs on day of discharge: Labs from last 24 hours 10/10/24 10/10/24 10/09/24 11:51 08:11 20:01 POC Capillary Glucose 128 H 152 H 163 H 10/09/24 16:58 POC Capillary Glucose 162 H Discharge Plan Discharge Attending physician on discharge: Ophelia Pacheco Consulting providers: Walter Nobles; Laura Martin; Spencer Long; Conrad Corona Discharging Clinician: Keren Noguera Patient Disposition: Home with Home Health Service Activity: as tolerated Diet: heart healthy Discharge Instructions: Per Care Coordination, patient to resume services with [facility] ([phone]) for PT/OT and mcfp services. Please fax discharge instructions and medication sheets to [phone]. patient to follow up with her primary care provider as soon as possible, patient is instructed if any symptoms worsen to go to nearest ER. Patient Instructions: Antibiotic Form Patient Language: Samoan Stand Alone Forms: General Discharge Information Follow-up/Referrals: Javy Monsivais MD [Primary Care Provider] - Discharge Medications: New cefdinir 300 mg capsule 300 mg PO Q12H Qty: 14 0RF Continued acetaminophen [Tylenol Extra Strength] 500 mg tablet 1,000 mg PO BID ferrous sulfate 325 mg (65 mg iron) tablet 325 mg PO DAILY nystatin 100,000 unit/gram cream 1 applic topical DAILY Patient Comments: Apply to skin under breasts lactobacillus combination no.9 [Adult 50 Plus Probiotic] 1 cap PO HS (DME) FreeStyle Mohan 3 [place] Misc See Rx Instructions .Route Qty: 1 0RF Rx Instructions: use for monitoring glucose on insulin (DME) pen needle, diabetic 31 gauge x 5/16 needle See Rx Instructions .ROUTE .COMPLEX Qty: 400 2RF Dose Instruction: USE FIVE TIMES DAILY Rx Instructions: USE FIVE TIMES DAILY aspirin 81 mg tablet,delayed release (DR/EC) 81 mg PO Q12H Mounjaro 5 mg/0.5 mL pen injector 5 mg subcut WEEKLY Qty: 6 1RF Patient Comments: patient takes on tuesday insulin glargine U-300 conc [Toujeo Max U-300 SoloStar] 300 unit/mL (3 mL) insulin pen 50 unit subcut Q12H MDD 100 insulin lispro [Humalog KwikPen Insulin] 100 unit/mL insulin pen 10 unit subcut TIDWMEAL Rx Instructions: Take 10 units +sliding scale TID 15 mins before meals 150-175: 1 unit 176-200: 2 units 201-225: 3 units 226-250: 4 units 251-300: 5 units 301-325: 6 units 326-350: 7 units 351-375: 8 units 376-400: 9 units >401: 10 units clotrimazole-betamethasone 1-0.05 % Cream 1 applic TOPICAL BID Rx Instructions: APPLY TO BUTTOCKS Clear Fiber 3 gram/4 gram Powder 2 tsp PO TID PRN (Reason: Constipation) tramadol 50 mg tablet 50 mg PO HS lisinopril 5 mg tablet 5 mg PO HS icosapent ethyl [Vascepa] 1 gram capsule 2 g PO Q12H Eliquis 2.5 mg tablet 2.5 mg PO Q12H rosuvastatin 20 mg tablet 20 mg PO HS duloxetine 60 mg capsule,delayed release(DR/EC) 30 mg PO QHS Adults Multivitamin 18 mg iron-400 mcg-25 mcg Tablet 1 tablet PO DAILY benztropine 0.5 mg tablet See Rx Instructions .ROUTE .COMPLEX Qty: 270 1RF Dose Instruction: TAKE 1 TABLET BY MOUTH THREE TIMES DAILY Rx Instructions: TAKE 1 TABLET BY MOUTH THREE TIMES DAILY metoprolol tartrate 50 mg tablet 50 mg PO Q12H Qty: 60 5RF cholecalciferol (vitamin D3) 1,250 mcg (50,000 unit) capsule See Rx Instructions .ROUTE .COMPLEX Qty: 12 3RF Dose Instruction: TAKE 1 CAPSULE BY MOUTH ONCE WEEKLY ON FRIDAYS Rx Instructions: TAKE 1 CAPSULE BY MOUTH ONCE WEEKLY ON FRIDAYS memantine-donepezil [Namzaric] 28-10 mg cap,sprinkle,ER 24hr dose pack See Rx Instructions .ROUTE .COMPLEX Qty: 90 2RF Dose Instruction: TAKE 1 CAPSULE BY MOUTH AT BEDTIME Rx Instructions: TAKE 1 CAPSULE BY MOUTH AT BEDTIME (DME) FreeStyle Mohan 3 Plus Sensor Device See Rx Instructions .Route Qty: 2 2RF Rx Instructions: change every 15 days clonidine HCl 0.1 mg tablet See Rx Instructions .ROUTE .COMPLEX Qty: 180 0RF Dose Instruction: TAKE 1 TABLET(0.1 MG) BY MOUTH TWICE DAILY. MAY REPEAT EVERY 1 HOUR. NOT TO E XCEED 0.7 MG 7 TABLETS PER 24 HOURS Rx Instructions: TAKE 1 TABLET(0.1 MG) BY MOUTH TWICE DAILY. MAY REPEAT EVERY 1 HOUR. NOT TO EXCEED 0.7 MG 7 TABLETS PER 24 HOURS lactulose 10 gram/15 mL solution See Rx Instructions .ROUTE .COMPLEX Qty: 3784 0RF Dose Instruction: TAKE 15ML BY MOUTH TWICE DAILY NEEDED FOR CONSTIPATION Rx Instructions: TAKE 15ML BY MOUTH TWICE DAILY NEEDED FOR CONSTIPATION pregabalin 100 mg capsule 100 mg PO TID Qty: 90 2RF No Action (DME) FreeStyle Mohan 3 Sensor Device See Rx Instructions .Route Qty: 1 0RF Rx Instructions: use for monitoring blood sugar amlodipine [Norvasc] 5 mg tablet 5 mg PO DAILY Qty: 90 1RF Gemtesa 75 mg tablet 75 mg PO DAILY Qty: 90 0RF (DME) Accu-Chek Guide test strips Strip See Rx Instructions .Route Qty: 25 1RF Rx Instructions: use once a day to monitor blood sugars quetiapine 50 mg tablet See Rx Instructions .ROUTE .COMPLEX Qty: 60 0RF Dose Instruction: TAKE 1 TABLET BY MOUTH TWICE DAILY Rx Instructions: TAKE 1 TABLET BY MOUTH TWICE DAILY Date of admission: 10/09/24 14:01 Primary Care Provider: Javy Monsivais Admitting Provider: Ophelia Pacheco Attending physician on admission: Keren Noguera Condition: Improved
[2024-10-10] MEDS: cefTRIAXone 1 GM in SODIUM CHLORIDE 0.9% IV 50 ML 100 ML IVPB (16:29)
--- NOTE | 2024-10-10 16:35 | PC.NURSE ---
Per Dr. Noguera, give dose of ceftriaxone IVPB then patient can discharge.
== END 2024-10-10 17:30 | disposition home health service (06) | DRG 699 ==
LOC: ANHED 21:20 → ANH3MED 10-09 01:14
PROVIDERS: Student in an Organized Health Care Education/Training Program; Admitting Provider Internal Medicine; Emergency Provider Physician Assistant; PCP Family Medicine; Visit Provider Family Medicine
DX: T83.511A Infection and inflammatory reaction due to indwelling urethral catheter, initial encounter (principal); F03.918 Unspecified dementia, unspecified severity, with other behavioral disturbance; Z68.41 Body mass index [BMI] 40.0-44.9, adult; N39.0 Urinary tract infection, site not specified; E11.29 Type 2 diabetes mellitus with other diabetic kidney complication; N31.9 Neuromuscular dysfunction of bladder, unspecified; E03.9 Hypothyroidism, unspecified; G47.33 Obstructive sleep apnea (adult) (pediatric); E78.2 Mixed hyperlipidemia; E11.22 Type 2 diabetes mellitus with diabetic chronic kidney disease; I12.9 Hypertensive chronic kidney disease with stage 1 through stage 4 chronic kidney disease, or unspecified chronic kidney disease; N18.30 Chronic kidney disease, stage 3 unspecified; J44.9 Chronic obstructive pulmonary disease, unspecified; E66.01 Morbid (severe) obesity due to excess calories; Z79.4 Long term (current) use of insulin; Z86.711 Personal history of pulmonary embolism; Z90.710 Acquired absence of both cervix and uterus
CPT/HCPCS: 36415; 71045; 74176; 80053; 81001; 82948; 83880; 85025; 87086; 93005; 94640; 96365; 97161; 99285; A9270; G0378; J0696; J1815

== ENCOUNTER 2024-11-06 13:15 | Outpatient (CLI) | payer MEDICARE, OTHER, SELFPAY ==
--- OUTSIDE RECORDS SUMMARY | 2013-01-09 06:30 | XMS_ITS | Continuity of Care Document ---
Author Name [facility] Organization [facility] Care Team Providers Care Sample Checker Name Role Phone [facility] Unavailable Unavailable Problems Combined list of problems from [facility] and [facility] facilities. It does not include entries that were removed or entered in error. Problem Status Onset Date Problem Type Date of Resolution Comments Source Hyperlipidemia (SNOMED CT [id number]) Active Condition [facility] Seizures * Active Condition [facility] Allergies, Adverse Reactions, Alerts Combined list of allergies from [facility] facilities. It does not include entries that were removed or entered in error. Substance Category Reaction Severity Reaction type Status Date Reported Comments Source VANCOMYCIN Propensity to adverse reactions to drug (finding) Erythema active 3 [facility] Immunizations Combined list of available immunizations from the [facility] and [facility] facilities. 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 Social History Type Response Date Comment Javier nelson Tobacco smoking status NHIS LIFETIME NON-USER OF TOBACCO 01/09/2013 [facility]
--- OUTSIDE RECORDS SUMMARY | 2024-11-06 13:27 | XMS_ITS ---
Author Name Auto Generated, Auto Generated Organization [facility] Address [address] [place] [address] Phone [phone] Care Team Providers Care Corrosion Prevention Metal Sprayer Name Role Phone Jacob Castro Unavailable [phone] AcCurtis Unavailable Functional Status No Results Mental Status No Results Allergies and Intolerances Name Onset Date Reaction Severity linezolid (Allergy) TueJun 03 15:11:00 EDT 2021 duloxetine (Allergy) TueJun 03 15:11:00 EDT 202 2 vancomycin (Allergy) TueJun 03 15:11:00 EDT 202 2 divalproex sodium (Allergy) TueJun 03 15:11:00 [...] CAPSULE Oral PRN Every 6 Hours 2 [id number] *DO NOT EXCEED 3GM/DAY APAP FROM ALL [...] 2021 * End Date: * Text: * salvage 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
--- OUTSIDE RECORDS SUMMARY | 2024-11-06 13:28 | XMS_ITS | Patient Health Record ---
Author Organization [facility] Address [address] [place] [address] Care Team Providers Care Supervising Airplane Pilot Name Role Phone Kaleigh Garduno Unavailable [phone] Reason For Referral No Information Medications Medication SIG (Take, Route, Frequency, Duration) Notes Start Date End Date Status clonazePAM 1 MG Tablet Oral Active Trintellix 10 MG Tablet Oral Active ARIPiprazole 2 MG Tablet Oral Active Divalproex Sodium 125 MG Capsule Delayed Release Sprinkle Oral Active amLODIPine Besylate 10 MG Tablet Oral Active oxyCODONE HCl 30 MG Tablet Oral Active Viibryd 20 MG Tablet Oral Active DULoxetine HCl 60 MG Capsule Delayed Release Particles Oral Active Metoprolol Tartrate 50 MG Tablet Oral Active Levothyroxine Sodium 25 MCG Tablet Oral Active Viibryd 40 MG Tablet Oral Active Gabapentin 400 MG Capsule Oral Active Levemir FlexPen 100 unit/mL (3 mL) INSULIN PEN (ML) SUBCUTANEOUS *Reorder from [email or web address] for eRx and Interaction Alerts* Active Escitalopram Oxalate 20 MG Tablet Oral Active Valium 5 MG Tablet Oral A ctive Atorvastatin Calcium 10 MG Tablet Oral Active Aricept 5 MG Tablet Oral Active Ingrezza 40 mg Capsule Oral Active Zolpidem Tartrate 10 MG Tablet Oral Active busPIRone HCl 5 MG Tablet Oral Active Abilify 2 MG Tablet Oral Active Escitalopram Oxalate 10 MG Tablet Oral Active Trintellix 20 MG Tablet Oral Active Donepezil HCl 5 MG Tablet Oral Active DULoxetine HCl 30 MG Capsule Delayed Release Particles Oral Active Benztropine Mesylate 0.5 MG Tablet Oral Active clonazePAM 0.5 MG Tablet Oral Active Furosemide 20 MG Tablet Oral Active Zolpidem Tartrate ER 6.25 mg Tablet Extended Release Oral Active Gabapentin 800 MG Tablet Oral Active Metoclopramide HCl 10 MG Tablet Oral Active Lisinopril 40 MG Tablet Oral Active LORazepam 0.5 MG Tablet Oral Active ALPRAZolam 0.25 MG Tablet Oral Active Plan Of Treatment No Information
--- OUTSIDE RECORDS SUMMARY | 2024-11-06 13:28 | XMS_ITS | Clinical Summary ---
Author Organization [facility] Address [address] [place] [id number] Care Team Providers Care Online Advertising Analyst Name Role Phone None, Provider MD Primary [...] complete this topic Insurance GUDEL[employer] Care Teams Online Advertising Analyst Relationship Specialty Start Date End Date None, Provider, MD PCP - General UNKNOWN PHYSICIAN SPECIALTY 11/03/23
[2024-11-06 14:40] LABS: Albumin Level 4.4 g/dL (3.5-5.1); Anion Gap 10 mmol/L (4-12); Blood Urea Nitrogen 46 mg/dL (7-17); Calcium 11.2 mg/dL (8.4-10.2); Carbon Dioxide 27 mmol/L (22-30); Chloride 103 mmol/L (98-107); Estimated Glomerular Filt Rate 31; Glucose 186 mg/dL (65-110); Potassium 4.5 mmol/L (3.4-5.0); Sodium 140 mmol/L (137-145)
[2024-11-06 15:50] LABS: Total Protein Urine Random 22 mg/dL; Ur Ttl Prot Creatinine Ratio 0.23 mg/mg (0-0.20)
[2024-11-07 14:08] LABS: Albumin 3.5 g/dL (2.9-4.4); Alpha-1-Globulin 0.2 g/dL (0.0-0.4); Alpha-2-Globulin 1.0 g/dL (0.4-1.0); Gamma Globulin 1.5 g/dL (0.4-1.8)
[2024-11-08 15:09] LABS: Albumin, U 45.7 % (.); Alpha-1-Globulin, U 7.2 % (.); Alpha-2-Globulin, U 10.8 % (.); Beta Globulin, U 15.8 % (.); Gamma Globulin, U 20.4 % (.)
== END 2024-11-06 13:16 | disposition home or self-care (01) ==
LOC: ANHLAB 13:16
PROVIDERS: PCP Family Medicine; Visit Provider Internal Medicine Nephrology
DX: E11.22 Type 2 diabetes mellitus with diabetic chronic kidney disease (principal); I12.9 Hypertensive chronic kidney disease with stage 1 through stage 4 chronic kidney disease, or unspecified chronic kidney disease; N18.32 Chronic kidney disease, stage 3b
CPT/HCPCS: 36415; 80069; 82570; 84155; 84156; 84165; 84166; 86037; 86160; 86225

== ENCOUNTER 2024-12-17 03:38 | Emergency (ER) | payer MEDICARE, OTHER, SELFPAY ==
[2024-12-17 03:37] VITALS: BP 151/109; PULSE 91; RESP 18; TEMP 36.8; O2SAT 97
--- OUTSIDE RECORDS SUMMARY | 2024-12-17 03:55 | XMS_ITS | Encounter Summary ---
Author Organization [facility] Address [address] [place] [address] Phone Care Team Providers Care Drafting Detailer Name Role Phone Carol Staples MD Primary Care Provider Encounter Details Date Type Department Care Team (Latest Contact Info) Description 05/28/2024 Orders Only [facility] Scanning, Provider Social History Tobacco Use Types Packs/Day Years Used Date Smoking Tobacco: Never Smokeless Tobacco: Never Social Connection and Isolation Panel Answer Date Recorded In a typical week, how many times do you talk on the phone with family, friends, or neighbors? More than three times a week 09/07/2021 How often do you get togethe r with friends or relatives? More than three times a week 09/07/2021 How often do you attend chur ch or buddhism services? 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 Gender Identity Not on file Sexual Orientation Not on file documented as of this encounter Plan of Treatment Not on file documented as of this encounter Procedures Procedure Name Priority Date/Time Associated Diagnosis Comments SCAN - LABS 05/28/2024 documented in this encounter Results * SCAN - LABS (05/28/2024) us Provider Scanning Final Result documented in this encounter Visit Diagnoses Not on filedocumented in this encounter Care Teams Drafting Detailer Relationship Specialty Start Date End Date Carol Staples MD [address] [facility] [address] [place] [address] PCP - General Family Medicine 07/18/20 documented as of this encounter
--- OUTSIDE RECORDS SUMMARY | 2024-12-17 03:55 | XMS_ITS | Clinical Summary ---
Author Organization [facility] Address [address] [facility] [place] [address] Care Team Providers Care High School Professional Name Role Phone Amanda Hanks MD Primary Care Provider [phone] Source Comments [facility],non-owned Affiliates and Associated Physician Practices is amultiple site organization consisting of ambulatory clinics and hospital sitesin [place], [place], [place] and [place]. This disclosure is being madepursuant to the Care Everywhere program and may not contain all information available regarding this patient. Last updated 17.[facility] Allergies No known active allergies Medications * Be aware that medications may not be up to date on this document. Alwaysverify current medications with the patient. metFORMIN (GLUCOPHAGE) 500 MG tablet Take 500 mg by mouth 2 times daily with morning and evening meal. Active Insulin Detemir (LEVEMIR FLEXTOUCH SC) Inject 65 Units subcutaneousl y. Active Cholecalciferol (VITAMIN D3) 56559 UNITS CAPS capsule Take 50,000 Units by [...] mg by mouth. 5 TIMES DAILY Active prochlorperazin e (COMPAZINE) 10 MG tablet Take 10 mg by mouth every 8 hours as needed for Nausea/Vomiti ng. Active ondansetron, disintegrating, (ZOFRAN ODT) 8 MG tablet Take 8 mg by mouth every 8 hours as needed for Nausea/Vomiti ng. Allow tablet to dissolve on the tongue Active AMLODIPINE BESYLATE PO Take 10 mg by mouth once daily. Active lisinopril (PRINIVIL; ZESTRIL) 40 MG tablet Take 40 mg by mouth once daily. Active hydrochlorothia zide (HYDRODIURIL) 12.5 MG TABS Take by mouth once daily. Active Icosapent Ethyl (VASCEPA) 1 G CAPS Take by mouth 2 times daily. Active atorvastatin (LIPITOR) 10 MG tablet Take 10 mg by mouth at bedtime. Active Bisacodyl (DULCOLAX PO) Take by mouth. Active Aspirin-Acetami nophen-Caffeine (EXCEDRIN PO) Take by mouth. 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 OPERATOR Gender Identity Not on file Sexual Orientation Not on file Occupation Industry Job Start Date Job End Date RETIRED Not on file Not on file Not on file Last Filed Vital Signs Vital Sign Reading Time Taken Comments Blood Pressure 170/92 04/08/2014 2:21 PM SLASHER OPERATOR Pulse 116 04/08/2014 2:21 PM SLASHER OPERATOR Temperature 36.9 C (98.5 F) 04/08/2014 2:21 PM SLASHER OPERATOR Respiratory Rate 18 04/08/2014 2:21 PM SLASHER OPERATOR Oxygen Saturation - - Inhaled Oxygen Concentration - - Weight 131.5 kg (290 lb) 05/20/2014 12:04 PM SLASHER OPERATOR Height 175.3 cm (5' 9) 05/20/2014 12:04 PM SLASHER OPERATOR Body Mass Index 42.83 05/20/2014 12:04 PM SLASHER OPERATOR Plan of Treatment Health Maintenance Due Date [...] - Risk 60-74 years 1-dose series) 2014 DEPRESSION SCREENING 03/21/2024 COVID-19 VACCINE (1 - 2023-2 5 season) 2024 INFLUENZA VACCINE (#1) 2024 HEPATITIS C SCREENING Completed 06/10/2014 HEPATITIS [...] C Antibody NON-REACTI VE NON-REACT [facility] ([facility]) Signal/Cutoff 0.02 <1.00 [facility] ([facility]) Comment: Test Performed at: [employer] [facility] [id number] [id number] GUERLINE MORSE DO,MPH 06/10/2014 11:5 5 AM CDT 06/10/2014 11:56 AM CDT Phil Huoser MD LAB - CHEMISTRY OR DERABLES Final Result [facility] ([facility]) [id number] from Last 3 Months or Most Recently Relevant to Health Maintenance Insurance * Guarantor: Christine Reynolds Account Type Relation to Patient Date of Phone Billing Address Personal/Family Self [address] [place] [address] Care Teams High School Professional Relationship Specialty Start Date End Date Amanda Hanks MD [address] [place] [address] [address] [place] [id number] PCP - General Family Medicine 04/18/14
--- OUTSIDE RECORDS SUMMARY | 2024-12-17 03:55 | XMS_ITS | Clinical Summary ---
Author Organization [facility] Address [facility] [place] [address] Care Team Providers Care Director Of Event Management Name Role Phone Carol Staples MD Primary [...] (05/15/2021): Added automatically from request for surgery [id number] Closed displaced fracture of medial malleolus of right tibia 05/15/2021 Overview (05/25/2021): Added automatically from request for surgery [id number] Neurogenic bladder 04/17/2021 Overview (04/17/2021): Added automatically from request for surgery [id number] Assessment & Plan (09/03/2021 9:34 PM CDT): [...] bilateral 10/23/2020 Fracture of upper arm 10/22/2010 Encounters Date Type Department Care Team Description 10/24/2024 Telephone [facility] Medicine Scheduling [address] [place], [place] [id number] Coenen, Rozina Salmo, TAPE EDGE MACHINE OPERATOR from Last 3 Months Immunizations Immunization Administration Dates Next Due DTaP [...] Hypertension Kidney infection Osteoarthritis Depression Alzheimer disease Anxiety Dementia (HCC) CKD (chronic kidney disease) Hypothyroidism Tardive dyskinesia 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 More than three times a week 09/07/2021 How often do you get togethe r with friends or relatives? More than three times a week 09/07/2021 How often do you attend chur ch or spiritism services? 1 to 4 times per year 09/07/2021 Do you belong to any clubs o r organizations such as advent groups, unions, fraternal or athletic groups, or [...] place to sleep or slept in a long-term (including now)? 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 Gender Identity Not on file Sexual Orientation Not on file Obstetrics History Last Filed Vital Signs Vital Sign Reading Time Taken Comments Blood Pressure 126/76 02/03/2023 8:58 AM CO FOUNDER AND CHAIRMAN Pulse 69 02/03/2023 8:58 AM CO FOUNDER AND CHAIRMAN Temperature 36.7 C (98.1 F) 02/03/2023 8:58 AM CO FOUNDER AND CHAIRMAN Respiratory Rate 18 01/14/2022 9:20 AM CDT Oxygen Saturation 95% 09/15/2021 6:34 AM CDT Inhaled Oxygen Concentration - - Weight 129.7 kg (286 lb) 02/03/2023 8:58 AM CO FOUNDER AND CHAIRMAN Height 175.3 cm (5' 9) 02/03/2023 8:58 AM CO FOUNDER AND CHAIRMAN Body Mass Index 42.23 02/03/2023 8:58 AM CO FOUNDER AND CHAIRMAN Plan of Treatment Health Maintenance Due Date [...] 08/20, 09/09/2021, Additional history exists Covid-19 Vaccine (4 - 2024-2 6 season) 2024 06/05/2021, 07/24/2020, 07/03/2020 Influenza Vaccine (#1) 2024 , 11/29/2019, 11/29/2018, Additional history exists DTaP/Tdap/Td Vaccine (5 - Td or Tdap) 12/23/2024 12/23/2014, 12/22/2014, 01/09/2013, Additional history exists Medical Devices Implanted Type Area Social Studies Department Chair Device Identifier Shelf Expiration Date Model / Serial / Lot [employer]/Ort ho [id number] Evos [id number] 16.3x1.7mm 13 Hole Low Profile Variable Angle - S0 - [id number] Implanted:Qty: 1 on 05/16/2021 by Lori Carnes MD at [facility] Plate Right: Ankle [employer]/ Ortho [id number] 06/26/2028 [id number] / 0 / [id number] [employer]/Ort ho [id number] Evos 3.5mm 48mm Self Tap Cortex Screw Bone Sterile - S0 - [id number] Implanted:Qty: 1 on 05/16/2021 by Lori Carnes MD at [facility] Screw Right: Ankle [employer]/ Ortho [id number] / 0 / 0 [employer]/Ort ho [id number] Evos 3.5mm 50mm Self Tap Cortex Screw Bone Sterile - S0 - [id number] Implanted:Qty: 1 on 05/16/2021 by Lori Carnes MD at [facility] Screw Right: Ankle [employer]/ Ortho [id number] / 0 / 0 [employer]/Ort ho [id number] Evos Mini 2.7mm 4.5mm 12mm Self Tap Cortex T8 Screw Bone - S0 - [id number] Implanted:Qty: 1 on 05/16/2021 by Lori Carnes MD at [facility] Screw Right: Ankle [employer]/ Ortho [id number] / 0 / 0 [employer]/Ort ho [id number] Evos Mini 2.7mm 4.5mm 13mm Self Tap Cortex T8 Screw Bone - S0 - [id number] Implanted:Qty: 1 on 05/16/2021 by Lori Carnes MD at [facility] Screw Right: Ankle [employer]/ Ortho [id number] / 0 / 0 [employer]/Ort ho [id number] Evos Mini 2.7mm 4.5mm 15mm Self Tap Cortex T8 Screw Bone - S0 - [id number] Implanted:Qty: 3 on 05/16/2021 by Lori Carnes MD at [facility] Screw Right: Ankle [employer]/ Ortho [id number] / 0 / 0 [employer]/Ort ho [id number] Evos 3.5mm 12mm Self Tap Cortex Screw Bone Sterile - S0 - [id number] Implanted:Qty: 4 on 05/16/2021 by Lori Carnes MD at [facility] Screw Right: Ankle [employer]/ Ortho [id number] / 0 / 0 [employer]/Ort ho [id number] Evos 3.5mm 46mm Self Tap Cortex Screw Bone Sterile - S0 - [id number] Implanted:Qty: 1 on 05/16/2021 by Lori Carnes MD at [facility] Screw Right: Ankle [employer]/ Ortho [id number] / 0 / 0 Rt Shoulder Pin Right: Shoulder Lumbar Spine Fusion Instrumemtation Spine Lumbar [employer]/Ort ho [id number] Evos 3.5mm 75mm Self Tap Cortex Screw Bone Sterile - [id number] Implanted:Qty: 1 on 05/28/2021 by Randall Camp MD at [facility] Right: Ankle [employer]/ Ortho [id number] / / Explanted Type Area Social Studies Department Chair Device Identifier Shelf Expiration Date Model / Serial / Lot [employer]/O rtho [id number] Evos 2mm 14mm Provisional Pin Fixation Sterile - S0 - [id number] Explanted:Qty: 1 on 05/16/2021 at [facility] Pin Right: Ankle [employer]/Or tho [id number] / 0 / 0 Description:Temporary Placem ent; Provisional Fixation, only [employer]/O rtho [id number] Pin 25mm 2.5mm Fixation Evos Provisional Sterile - S0 - [id number] Explanted:Qty: 1 on 05/16/2021 at [facility] Pin Right: Ankle [employer]/Or tho [id number] / 0 / 0 Description:Temporary Placem ent; Provisional Fixation, only [employer]/O rtho [id number] Evos 3.5mm 15mm Self Tap Cortex Screw Bone Sterile - S0 - [id number] Explanted:Qty: 1 on 05/16/2021 at [facility] Screw Right: Ankle [employer]/Or tho [id number] / 0 / 0 Procedures Procedure Name Priority Date/Time Associated Diagnosis Comments EGFR Routine 09/11/2021 3:21 AM CDT HEMOGLOBIN A1C Routine 09/04/2021 4:18 AM CDT LIPID PANEL STAT 05/15/2021 1:38 PM CO FOUNDER AND CHAIRMAN from Last 3 Months or Most Recently [...] was last reviewed 2021. Testing performed by: [address] [address] Blood 09/11/2021 3:21 AM CDT 09/11/2021 5:45 AM CDT us Dipti López MD LAB BLOOD ORDERABLES Final Res ult Performing Organization Address [facility] Co de Phone Number [facility] [address] [facility] [place] [address] * (ABNORMAL) Hemoglobin A1c (09/04/2021 4:18 AM CDT) [facility] Hgb A1C 6.4(H) 4.0 - 5.6 % [facility] Comment:Testing performed by : [address] [address] Estimated Average Glucose 137 mg/dL [facility] Comment: The ADA recommends reporting an estimated Average Glucose (eAG) with all Hemoglobin A1c results using the equation derived from a study of 507 normal and diabetic adults. Minority populations were underrepresented and children were not included. (Diabetes Care 31:7099-8251, 2008). The eAG is not equivalent to a fasting glucose. Testing performed by: [address] [address] Blood 09/04/2021 4:18 AM CDT 09/04/2021 5:27 AM CDT us Adeline Bo DO LAB BLOOD ORDERABLES Final Re sult Performing Organization Address [facility] Co de Phone Number [facility] [address] [facility] [place] [address] * (ABNORMAL) Lipid panel (05/15/2021 1:38 PM CO FOUNDER AND CHAIRMAN) Cholesterol 155 30 - 199 mg/dL [facility] Comment: Interpretive Data Ages < or [...] revised on 2017. Triglycerides 372(H) <=149 mg/dL [facility] Comment: Interpretive Data Ages < or [...] revised on 2017. HDL 29(L) >=40 mg/dL [facility] Comment: Interpretive Data Ages < or [...] on 2017. LDL, calculated 52 <=129 mg/dL [facility] Comment: Interpretive Data Ages < or [...] revised on 2017. Non-HDL Cholesterol 126 mg/dL [facility] Comment: Interpretive Data Ages < [...] last revised on 2017. Chol/HDL ratio 5 [facility] Blood 05/15/2021 1:38 PM CO FOUNDER AND CHAIRMAN 05/15/2021 1:48 PM CO FOUNDER AND CHAIRMAN Radha Lara MD LAB BLOOD ORDERABLES Raisa davila Result [facility] Department [place] [address] from Last 3 Months or Most Recently Relevant to Health Maintenance Insurance [employer] MEDICARE [facility] MEDICARE [facility] [employer] MEDIC[place] [address] Advance Directives For more information, please contact: [phone] * Full Code (Latest Code Status on File) Date Activated Date Inactivated Comments 05/15/2021 10:09 PM 06/03/2021 10:44 PM Care Teams Director Of Event Management Relationship Specialty Start Date End Date Carol Staples MD [address] [facility] [address] [place] [address] PCP - General Family Medicine 07/18/20
--- OUTSIDE RECORDS SUMMARY | 2024-12-17 03:55 | XMS_ITS | Patient Health Record ---
Author Organization [facility] [employer] [facility] Address [address] [place] [address] Care Team Providers Care Automation Machine Operator Name Role Phone Kaleigh Garduno Unavailable [phone] Reason For Referral No Information Medications Medication [...] mL) INSULIN PEN (ML) SUBCUTANEOUS *Reorder from [employer] for eRx and Interaction Alerts* Active Escitalopram [...]
[2024-12-17 04:01] LABS: Add Urine Microscopic? YES; Appearance Urine Cloudy (Clear); Glucose Urine UA Negative (Negative); Leukocyte Esterase Ur 3+ LEU/UL (Negative); Nitrate Urine Negative (Negative); Non Pathogenic Casts 0-2; Specific Grav Ur 1.007 (1.001-1.035)
--- NOTE | 2024-12-17 04:08 | ED.FEMALEGU ---
HPI - Female Genitourinary General Chief complaint: Urogenital-Female Stated complaint: bladder spasms; groin pain History of Present Illness HPI Narrative: Patient is a 69-year-old female who presents to the emergency department this evening complaining of bladder spasms. Patient does have a chronic Villa catheter in place and states that it has been leaking which started around the same time she started to have bladder spasms. States that throughout the evening the spasms in the leaking has increased. Patient has not had her Vilal catheter changed in a while. Denies any additional symptoms or concerns. Related Data Home Medications ?Medication ?Instructions ?Recorded ?Confirmed ?Last Taken ?Type acetaminophen 500 mg tablet 1,000 mg PO BID Pain 07/10/20 12/05/24 08/31/24 History (Tylenol Extra Strength) multivit with minerals-iron 18 1 tablet PO DAILY 03/06/21 12/05/24 08/31/24 History mg-folic ac 400 mcg-vit K 25 mcg tablet (Adults Multivitamin) aspirin 81 mg tablet,delayed 81 mg PO Q12H 10/30/21 12/05/24 08/31/24 History release clotrimazole-betamethasone 1 1 applic topical BID 05/18/23 12/05/24 08/31/24 History %-0.05 % topical cream dextrin 3 gram/4 gram oral powder 2 tsp PO TID PRN Constipation 05/18/23 12/05/24 08/31/24 History (Clear Fiber) ferrous sulfate 325 mg (65 mg 325 mg PO DAILY 02/14/24 12/05/24 08/31/24 History iron) tablet lactobacillus combination no.9 1 cap PO HS 02/14/24 12/05/24 08/30/24 History nystatin 100,000 unit/gram topical 1 applic topical DAILY 02/14/24 12/05/24 08/31/24 History cream icosapent ethyl 1 gram capsule 2 g PO Q12H 08/31/24 12/05/24 08/31/24 History (Vascepa) lisinopril 5 mg tablet 5 mg PO HS 08/31/24 12/05/24 08/30/24 History duloxetine 60 mg capsule,delayed 30 mg PO QHS 10/09/24 12/05/24 Unknown History release rosuvastatin 20 mg tablet 20 mg PO HS 10/09/24 12/05/24 Unknown History Allergies Allergy/AdvReac Type Severity Reaction Status Date / Time ciprofloxacin Allergy Mild Hives Verified 12/05/24 08:15 metronidazole Allergy Mild Hives Verified 12/05/24 08:15 divalproex sodium Allergy Unknown Unknown Verified 12/05/24 08:15 vancomycin Allergy Unknown Unknown Verified 12/05/24 08:15 Review of Systems Review of Systems: All systems are reviewed and are negative unless stated otherwise in the HPI. [facility] Past Medical History Medical History Hypothyroidism Mild cognitive impairment with memory loss Obstructive sleep apnea on CPAP Insulin dependent type 2 diabetes mellitus Chronic venous insufficiency Diabetic gastroparesis Chronic indwelling Villa catheter neurogenic bladder Dementia with behavioral disturbance Morbid obesity with BMI of 40.0-44.9, adult Vitamin D deficiency, unspecified Severe recurrent major depressive disorder with psychotic features Post-menopausal Polypharmacy Mixed hyperlipidemia Gout Dyskinesia, tardive Diabetic nephropathy associated with type 2 diabetes mellitus Depressive type psychosis Chronic pain disorder Chronic kidney disease, stage III (moderate) Benzodiazepine abuse, continuous Anxiety Antipsychotic-induced akathisia Pulmonary embolism (2020) Benign essential hypertension Brain hypoxia Chronic obstructive pulmonary disease Psychophysiological insomnia Surgical History Surgical History History of section History of hysterectomy History of back surgery Family History Family History Father Diabetes mellitus Hypertension Patient's father is , Onset Age: 75 Family history of renal failure Heart disease Cancer Mother Family history of malignant neoplasm of stomach Hypertension Cancer Thyroid disorder Sibling Depression Other Family history of arthritis Social History Social History Social History: At home she uses a walker and wheelchair to ambulate Surrogate medical decision maker: Serjio Michel, spouse. Code status: Full code. Smoking status: Never smoker Second hand tobacco smoke exposure: Yes Alcohol intake: never Substance use: never Substance use type: marijuana Other substance usage details: hx of marijuana use 2022 Do You Feel Safe in your Home?: Yes Lack of Transportation: No Lack of Food: Never True Current Housing: I Have Housing Concerned About Future Housing: No Difficulty Paying Gas/Electric Bills: No Difficulty Paying for Meds: No Currently Unemployed: No Education: High School Diploma/GED Difficulty w/ Childcare or Family Care: No Living arrangements: with family Additional living arrangements comments: She lives at home with her and 2 daughters. Her daughters help at night and she has caregivers as well. Occupation/Education: retired Spiritual care concerns: No Exam Narrative: General: Alert, awake, afebrile, in no acute distress. HEENT: PERRL, no rhinorrhea, no post nasal drip, oropharynx clear. Neck: Trachea midline, no JVD, no lymphadenopathy. Cardiovascular: Regular rate and rhythm, no murmurs, rubs or gallops, no peripheral edema. Respiratory: Clear to auscultation bilaterally, no tachypnea, no wheezing, no rhonchi, no rubs, no respiratory distress. Abdomen: Soft, nontender, nondistended, no rebound, no guarding, no peritoneal signs. Musculoskeletal: No joint swelling or deformity, normal muscle tone. Skin: No rashes or petechia, no signs of infection. Psychiatric: Alert and oriented, normal behavior and judgment for situation. Neurological: Alert and oriented to person, place, and time. Follows all commands. No focal deficits, speech is clear and fluent. Course Vital Signs Vital signs: Vital Signs Temperature 98.2 F 12/17/24 03:37 Pulse Rate 91 12/17/24 03:37 Respiratory Rate 18 12/17/24 03:37 Blood Pressure 151/109 H 12/17/24 03:37 Pulse Oximetry 97 12/17/24 03:37 Oxygen Delivery Room Air 12/17/24 03:37 Temperature 98.2 F 12/17/24 03:37 Pulse Rate 91 12/17/24 03:37 Respiratory Rate 18 12/17/24 03:37 Blood Pressure 151/109 H 12/17/24 03:37 Pulse Oximetry 97 12/17/24 03:37 Oxygen Delivery Room Air 12/17/24 03:37 MDM - Female Genitourinary MDM Narrative Medical decision making narrative: The patient was evaluated by myself in the emergency department. History is obtained from patient who is an independent historian and physical exam was performed. External medical records were reviewed at this time. Patient's Villa catheter was changed and patient states that her symptoms have significantly improved. Urinalysis was obtained and did reveal urinary tract infection. Patient was administered her 1st dose of antibiotics cephalexin 500 mg p.o. in the emergency department and informed the scrotal the center pharmacy to continue taking and patient is in agreement. Differential diagnosis considerations include urinary tract infection, villa malfunction, villa obstruction. Comorbidities impacting this visit include chronic indwelling Villa catheter. I have evaluated and discussed social determinants of health with the patient that could potentially impact subsequent diagnosis and treatment plans. On repeat assessment of the patient, reevaluation revealed that the patient is doing well and is in no acute distress. Patient symptoms have improved since she arrived to our emergency department. Repeat vital signs were all reviewed and noted to be stable. Differential diagnosis and treatment plan were discussed with the patient at bedside. Patient agrees with discussion and after shared medical decision making agrees with discharge. All questions were answered to the patient's satisfaction. Patient will follow up with her PCP in 3-5 days. Script for cephalexin was sent to patient's pharmacy to take as prescribed. Patient was provided with strict return precautions and instructed to return to the emergency department if any new or worsening symptoms develop. The patient was discharged in stable condition. Lab Data Labs: Lab Results 12/17/24 Range/Units 03:49 Urine Color Yellow (Yellow) Urine Appearance Cloudy H (Clear) Urine pH 6.5 (5.0-9.0) Ur Specific [place] 1.007 (1.001-1.035) Urine Protein 1+ H (Negative) mg/dL Urine Glucose (UA) Negative (Negative) mg/dL Urine Ketones Negative (Negative) mg/dL Ur Blood (Man) 3+ H (Negative) Urine Nitrate Negative (Negative) Urine Bilirubin Negative (Negative) Urine Urobilinogen 0.2 (<2.0) mg/dL Leukocyte Esterase Rfl 3+ H (Negative) ARTURO/UL Urine RBC 11-20 H (0-2) /hpf Urine WBC >100 H (0-3) /hpf Ur Squamous Epith Cells None seen (Few) /hpf Urine Bacteria 4+ H /hpf Urine Casts 0-2 Discharge Plan Discharge Clinical Impression: Chronic indwelling Villa catheter, Bladder spasm, Urinary tract infection Patient Disposition: Home Condition: Improved Instructions: Antibiotic Form, Urinary Tract Infection in Women (ED), Villa Catheter Placement and Care (ED) Additional Instructions: Please follow-up with your family doctor/urologist within the next 3-5 days. Return to the emergency department if any new or worsening symptoms develop. Take the prescribed antibiotic as instructed for UTI. Patient Language: Mongolian Prescriptions: New cephalexin 500 mg capsule 500 mg PO Q6H 7 Days Qty: 28 0RF No Action acetaminophen [Tylenol Extra Strength] 500 mg tablet 1,000 mg PO BID ferrous sulfate 325 mg (65 mg iron) tablet 325 mg PO DAILY nystatin 100,000 unit/gram cream 1 applic topical DAILY Patient Comments: Apply to skin under breasts lactobacillus combination no.9 [Adult 50 Plus Probiotic] 1 cap PO HS (DME) FreeStyle Mohan 3 [place] Misc See Rx Instructions .Route Qty: 1 0RF Rx Instructions: use for monitoring glucose on insulin (DME) pen needle, diabetic 31 gauge x 5/16 needle See Rx Instructions .ROUTE .COMPLEX Qty: 400 2RF Dose Instruction: USE FIVE TIMES DAILY Rx Instructions: USE FIVE TIMES DAILY aspirin 81 mg tablet,delayed release (DR/EC) 81 mg PO Q12H Mounjaro 5 mg/0.5 mL pen injector 5 mg subcut WEEKLY Qty: 6 1RF Patient Comments: patient takes on tuesday clotrimazole-betamethasone 1-0.05 % Cream 1 applic TOPICAL BID Rx Instructions: APPLY TO BUTTOCKS Clear Fiber 3 gram/4 gram Powder 2 tsp PO TID PRN (Reason: Constipation) lisinopril 5 mg tablet 5 mg PO HS icosapent ethyl [Vascepa] 1 gram capsule 2 g PO Q12H rosuvastatin 20 mg tablet 20 mg PO HS duloxetine 60 mg capsule,delayed release(DR/EC) 30 mg PO QHS Adults Multivitamin 18 mg iron-400 mcg-25 mcg Tablet 1 tablet PO DAILY metoprolol tartrate 50 mg tablet 50 mg PO Q12H Qty: 60 5RF cholecalciferol (vitamin D3) 1,250 mcg (50,000 unit) capsule See Rx Instructions .ROUTE .COMPLEX Qty: 12 3RF Dose Instruction: TAKE 1 CAPSULE BY MOUTH ONCE WEEKLY ON FRIDAYS Rx Instructions: TAKE 1 CAPSULE BY MOUTH ONCE WEEKLY ON FRIDAYS memantine-donepezil [Namzaric] 28-10 mg cap,sprinkle,ER 24hr dose pack See Rx Instructions .ROUTE .COMPLEX Qty: 90 2RF Dose Instruction: TAKE 1 CAPSULE BY MOUTH AT BEDTIME Rx Instructions: TAKE 1 CAPSULE BY MOUTH AT BEDTIME lactulose 10 gram/15 mL solution See Rx Instructions .ROUTE .COMPLEX Qty: 3784 0RF Dose Instruction: TAKE 15ML BY MOUTH TWICE DAILY NEEDED FOR CONSTIPATION Rx Instructions: TAKE 15ML BY MOUTH TWICE DAILY NEEDED FOR CONSTIPATION pregabalin 100 mg capsule 100 mg PO TID Qty: 90 2RF (DME) FreeStyle Mohan 3 Sensor Device See Rx Instructions .Route Qty: 1 0RF Rx Instructions: use for monitoring blood sugar amlodipine [Norvasc] 5 mg tablet 5 mg PO DAILY Qty: 90 1RF Gemtesa 75 mg tablet 75 mg PO DAILY Qty: 90 0RF quetiapine 50 mg tablet See Rx Instructions .ROUTE .COMPLEX Qty: 60 0RF Dose Instruction: TAKE 1 TABLET BY MOUTH TWICE DAILY Rx Instructions: TAKE 1 TABLET BY MOUTH TWICE DAILY insulin lispro [Humalog KwikPen Insulin] 100 unit/mL insulin pen 10 unit subcut TIDWMEAL Qty: 45 1RF Rx Instructions: Take 10 units +sliding scale TID 15 mins before meals 150-175: 1 unit 176-200: 2 units 201-225: 3 units 226-250: 4 units 251-300: 5 units 301-325: 6 units 326-350: 7 units 351-375: 8 units 376-400: 9 units >401: 10 units benztropine 0.5 mg tablet See Rx Instructions .ROUTE .COMPLEX Qty: 270 1RF Dose Instruction: TAKE 1 TABLET BY MOUTH THREE TIMES DAILY Rx Instructions: TAKE 1 TABLET BY MOUTH THREE TIMES DAILY tramadol 50 mg tablet 50 mg PO HS PRN (Reason: pain, severe) Qty: 60 0RF (DME) FreeStyle Mohan 3 Plus Sensor Device See Rx Instructions .Route Qty: 2 2RF Rx Instructions: change every 15 days Eliquis 2.5 mg tablet See Rx Instructions .ROUTE .COMPLEX Qty: 60 3RF Dose Instruction: TAKE 1 TABLET BY MOUTH TWICE DAILY Rx Instructions: TAKE 1 TABLET BY MOUTH TWICE DAILY (DME) FreeStyle Precision Aden Strips Strip See Rx Instructions .ROUTE .COMPLEX Qty: 25 0RF Dose Instruction: USE ONCE DAILY WITH CALIBRATION Rx Instructions: USE ONCE DAILY WITH CALIBRATION clonidine HCl 0.1 mg tablet See Rx Instructions .ROUTE .COMPLEX Qty: 180 0RF Dose Instruction: TAKE 1 TABLET(0.1 MG) BY MOUTH TWICE DAILY. MAY REPEAT EVERY 1 HOUR. NOT TO EXCEED 0.7 MG 7 TABLETS PER 24 HOURS Rx Instructions: TAKE 1 TABLET(0.1 MG) BY MOUTH TWICE DAILY. MAY REPEAT EVERY 1 HOUR. NOT TO EXCEED 0.7 MG 7 TABLETS PER 24 HOURS insulin glargine U-300 conc [Toujeo Max U-300 SoloStar] 300 unit/mL (3 mL) insulin pen 50 unit subcut Q12H MDD 100 Qty: 36 1RF Follow-up/Referrals: Javy Monsivais MD [Primary Care Provider, Family Practice] - 3 Days Time of Disposition: 04:23
[2024-12-17] MEDS: CEPHALEXIN 500 MG CAPSULE PO (05:26)
== END 2024-12-17 05:37 | disposition home or self-care (01) ==
PROVIDERS: Emergency Provider Emergency Medicine; PCP Family Medicine
DX: N32.89 Other specified disorders of bladder (principal); N39.0 Urinary tract infection, site not specified; T83.031A Leakage of indwelling urethral catheter, initial encounter; Y84.6 Urinary catheterization as the cause of abnormal reaction of the patient, or of later complication, without mention of misadventure at the time of the procedure
CPT/HCPCS: 51702; 81001; 87086; 99283; A9270

== ENCOUNTER 2025-01-20 17:36 | Emergency (ER) | payer MEDICARE, OTHER, SELFPAY ==
[2025-01-20] VITALS (13 sets, daily range): BP systolic 138–174; BP diastolic 74–91; PULSE 72–96; RESP 10–20; TEMP 37.1; O2SAT 90–100
--- NOTE | 2025-01-20 20:09 | ED.FEMALEGU ---
HPI - Female Genitourinary General Chief complaint: Urogenital-Female Stated complaint: bladder infection Time Seen by Provider: 01/20/25 19:52 History of Present Illness HPI Narrative: 69-year-old female with history of neurogenic bladder and chronic indwelling Vigil. History of cognitive impairment, diabetes, hyperlipidemia. Patient wears a chronic indwelling Vigil that gets changed monthly and she states she gets a urinary infection or bladder infection about 6 times a year. Last infection approximately 2-3 months ago. States she is having bladder spasms and symptoms consistent with her normal infections. No fever, chills, nausea or vomiting. Was otherwise in her normal state of health. Last catheter exchange was 2-3 weeks ago. Related Data Home Medications ?Medication ?Instructions ?Recorded ?Confirmed ?Last Taken ?Type acetaminophen 500 mg tablet 1,000 mg PO BID Pain 07/10/20 01/10/25 08/31/24 History (Tylenol Extra Strength) multivit with minerals-iron 18 1 tablet PO DAILY 03/06/21 01/10/25 08/31/24 History mg-folic ac 400 mcg-vit K 25 mcg tablet (Adults Multivitamin) aspirin 81 mg tablet,delayed 81 mg PO Q12H 10/30/21 01/10/25 08/31/24 History release clotrimazole-betamethasone 1 1 applic topical BID 05/18/23 01/10/25 08/31/24 History %-0.05 % topical cream dextrin 3 gram/4 gram oral powder 2 tsp PO TID PRN Constipation 05/18/23 01/10/25 08/31/24 History (Clear Fiber) ferrous sulfate 325 mg (65 mg 325 mg PO DAILY 02/14/24 01/10/25 08/31/24 History iron) tablet lactobacillus combination no.9 1 cap PO HS 02/14/24 01/10/25 08/30/24 History nystatin 100,000 unit/gram topical 1 applic topical DAILY 02/14/24 01/10/25 08/31/24 History cream rosuvastatin 20 mg tablet 20 mg PO HS 10/09/24 01/10/25 Unknown History Allergies Allergy/AdvReac Type Severity Reaction Status Date / Time ciprofloxacin Allergy Mild Hives Verified 01/10/25 09:51 metronidazole Allergy Mild Hives Verified 01/10/25 09:51 divalproex sodium Allergy Unknown Unknown Verified 01/10/25 09:51 vancomycin Allergy Unknown Unknown Verified 01/10/25 09:51 Review of Systems Review of Systems: As reviewed above in [facility] Past Medical History Medical History Hypothyroidism Mild cognitive impairment with memory loss Obstructive sleep apnea on CPAP Insulin dependent type 2 diabetes mellitus Chronic venous insufficiency Diabetic gastroparesis Chronic indwelling Vigil catheter neurogenic bladder Dementia with behavioral disturbance Morbid obesity with BMI of 40.0-44.9, adult Vitamin D deficiency, unspecified Severe recurrent major depressive disorder with psychotic features Post-menopausal Polypharmacy Mixed hyperlipidemia Gout Dyskinesia, tardive Diabetic nephropathy associated with type 2 diabetes mellitus Depressive type psychosis Chronic pain disorder Chronic kidney disease, stage III (moderate) Benzodiazepine abuse, continuous Anxiety Antipsychotic-induced akathisia Pulmonary embolism (2020) Benign essential hypertension Brain hypoxia Chronic obstructive pulmonary disease Psychophysiological insomnia Surgical History Surgical History History of section History of hysterectomy History of back surgery Family History Family History Father Diabetes mellitus Hypertension Patient's father is , Onset Age: 75 Family history of renal failure Heart disease Cancer Mother Family history of malignant neoplasm of stomach Hypertension Cancer Thyroid disorder Sibling Depression Other Family history of arthritis Social History Social History Social History: At home she uses a walker and wheelchair to ambulate Surrogate medical decision maker: Serjio Michel, spouse. Code status: Full code. Smoking status: Never smoker Second hand tobacco smoke exposure: Yes Alcohol intake: never Substance use: never Substance use type: marijuana Other substance usage details: hx of marijuana use 2022 Do You Feel Safe in your Home?: Yes Lack of Transportation: No Lack of Food: Never True Current Housing: I Have Housing Concerned About Future Housing: No Difficulty Paying Gas/Electric Bills: No Difficulty Paying for Meds: No Currently Unemployed: No Education: High School Diploma/GED Difficulty w/ Childcare or Family Care: No Living arrangements: with family Additional living arrangements comments: She lives at home with her and 2 daughters. Her daughters help at night and she has caregivers as well. Occupation/Education: retired Spiritual care concerns: No Exam Narrative: GENERAL: [Well-appearing, well-nourished, and in no acute distress.] HEAD: [Normocephalic, atraumatic.] EYES: [PERRLA and EOMI.] ENT: Nares clear, no rhinorrhea or epistaxis. Mucous membranes moist. NECK: Supple. CHEST: [Clear to auscultation. No respiratory distress.] HEART: [Regular rate and rhythm]. No murmur heard. [Normal peripheral pulses.] ABDOMEN: [Soft, nondistended], [nontender], [No rigidity or guarding] EXTREMITIES: Normal range of motion. [No edema.] SKIN: Warm, dry, no rash. NEURO: [No focal deficits]. Alert and oriented [x3.] PSYCH: [Normal mood and affect.] Course Vital Signs Vital signs: Vital Signs Temperature 37.1 C 01/20/25 17:40 Pulse Rate 72 01/20/25 17:40 Respiratory Rate 20 01/20/25 17:40 Blood Pressure 174/91 H 01/20/25 17:40 Pulse Oximetry 100 01/20/25 17:40 Temperature 37.1 C 01/20/25 17:40 Pulse Rate 90 01/20/25 20:30 Respiratory Rate 13 01/20/25 20:30 Blood Pressure 138/83 01/20/25 20:15 Pulse Oximetry 90 01/20/25 22:00 MDM - Female Genitourinary MDM Narrative Medical decision making narrative: 69-year-old female with history of neurogenic bladder and chronic indwelling Vigil. History of cognitive impairment, diabetes, hyperlipidemia. Patient wears a chronic indwelling Vigil that gets changed monthly and she states she gets a urinary infection or bladder infection about 6 times a year. Last infection approximately 2-3 months ago. States she is having bladder spasms and symptoms consistent with her normal infections. No fever, chills, nausea or vomiting. Was otherwise in her normal state of health. Last catheter exchange was 2-3 weeks ago. Patient has no tachycardia, fever, hypoxemia. Blood pressure mildly elevated but chronic. Patient has a consistent history of urinary infections and chronic indwelling Vigil. Will exchange the chronic Vigil with a new one and sent a for sample. Urine cultures reviewed from previous urinalysis which shows E coli and Klebsiella resistant to most antibiotics including Bactrim which will be started today. Is safe for discharge with PCP follow-up afterwards. Medical Records Attestation: I reviewed the patient's medical records. Lab Data Attestation: I reviewed the patient's lab results. Labs: Lab Results 01/20/25 Range/Units 21:04 Urine Color Yellow (Yellow) Urine Appearance Turbid H (Clear) Urine pH 6.5 (5.0-9.0) Ur Specific Kiester 1.010 (1.001-1.035) Urine Protein 2+ H (Negative) mg/dL Urine Glucose (UA) Negative (Negative) mg/dL Urine Ketones Negative (Negative) mg/dL Ur Blood (Man) 1+ H (Negative) Urine Nitrate Positive H (Negative) Urine Bilirubin Negative (Negative) Urine Urobilinogen 0.2 (<2.0) mg/dL Leukocyte Esterase Rfl 3+ H (Negative) ARTURO/UL Urine RBC 6-10 H (0-2) /hpf Urine WBC >100 H (0-3) /hpf Ur Squamous Epith Cells None seen (Few) /hpf Urine Bacteria 4+ /hpf Urine Casts 0-2 Discharge Plan Discharge Clinical Impression: Chronic indwelling Vigil catheter Urinary tract infection Qualifiers: Urinary tract infection type: catheter-associated UTI Indwelling urinary catheter type: unspecified Encounter type: initial encounter Qualified Code(s): T83.511A - Infection and inflammatory reaction due to indwelling urethral catheter, initial encounter Patient Disposition: Home Condition: Stable Instructions: Antibiotic Form Additional Instructions: We have exchange her Vigil catheter and sent to antibiotics for presumptive UTI. Urine does appear to have infection and we will culture it. Return with any emergent concerns or worsening symptoms otherwise follow-up with your doctor and take the antibiotic that we prescribed. Patient Language: Welsh Prescriptions: New sulfamethoxazole-trimethoprim [Bactrim DS] 800-160 mg tablet 1 tablet PO Q12H Qty: 14 0RF No Action acetaminophen [Tylenol Extra Strength] 500 mg tablet 1,000 mg PO BID ferrous sulfate 325 mg (65 mg iron) tablet 325 mg PO DAILY nystatin 100,000 unit/gram cream 1 applic topical DAILY Patient Comments: Apply to skin under breasts lactobacillus combination no.9 [Adult 50 Plus Probiotic] 1 cap PO HS (DME) FreeStyle Mohan 3 Fletcher Misc See Rx Instructions .Route Qty: 1 0RF Rx Instructions: use for monitoring glucose on insulin pregabalin [Lyrica] 150 mg capsule 150 mg PO TID Qty: 270 1RF insulin glargine U-300 conc [Toujeo Max U-300 SoloStar] 300 unit/mL (3 mL) insulin pen 50 unit subcut BID MDD 100 Qty: 36 1RF aspirin 81 mg tablet,delayed release (DR/EC) 81 mg PO Q12H tirzepatide 7.5 mg/0.5 mL pen injector 7.5 mg subcut WEEKLY 90 Days Qty: 6.5 1RF Patient Comments: patient takes on tuesday Baqsimi 3 mg/actuation spray,non-aerosol 3 mg intranasal ONCE PRN (Reason: hypoglycemia) Qty: 2 1RF Rx Instructions: as a single dose duloxetine 60 mg capsule,delayed release(DR/EC) 60 mg PO BID Qty: 180 1RF clotrimazole-betamethasone 1-0.05 % Cream 1 applic TOPICAL BID Rx Instructions: APPLY TO BUTTOCKS Clear Fiber 3 gram/4 gram Powder 2 tsp PO TID PRN (Reason: Constipation) rosuvastatin 20 mg tablet 20 mg PO HS Adults Multivitamin 18 mg iron-400 mcg-25 mcg Tablet 1 tablet PO DAILY metoprolol tartrate 50 mg tablet 50 mg PO Q12H Qty: 60 5RF cholecalciferol (vitamin D3) 1,250 mcg (50,000 unit) capsule See Rx Instructions .ROUTE .COMPLEX Qty: 12 3RF Dose Instruction: TAKE 1 CAPSULE BY MOUTH ONCE WEEKLY ON FRIDAYS Rx Instructions: TAKE 1 CAPSULE BY MOUTH ONCE WEEKLY ON FRIDAYS memantine-donepezil [Namzaric] 28-10 mg cap,sprinkle,ER 24hr dose pack See Rx Instructions .ROUTE .COMPLEX Qty: 90 2RF Dose Instruction: TAKE 1 CAPSULE BY MOUTH AT BEDTIME Rx Instructions: TAKE 1 CAPSULE BY MOUTH AT BEDTIME lactulose 10 gram/15 mL solution See Rx Instructions .ROUTE .COMPLEX Qty: 3784 0RF Dose Instruction: TAKE 15ML BY MOUTH TWICE DAILY NEEDED FOR CONSTIPATION Rx Instructions: TAKE 15ML BY MOUTH TWICE DAILY NEEDED FOR CONSTIPATION Gemtesa 75 mg tablet 75 mg PO DAILY Qty: 90 0RF insulin lispro [Humalog KwikPen Insulin] 100 unit/mL insulin pen 10 unit subcut TIDWMEAL Qty: 45 1RF Rx Instructions: Take 10 units +sliding scale TID 15 mins before meals 150-175: 1 unit 176-200: 2 units 201-225: 3 units 226-250: 4 units 251-300: 5 units 301-325: 6 units 326-350: 7 units 351-375: 8 units 376-400: 9 units >401: 10 units benztropine 0.5 mg tablet See Rx Instructions .ROUTE .COMPLEX Qty: 270 1RF Dose Instruction: TAKE 1 TABLET BY MOUTH THREE TIMES DAILY Rx Instructions: TAKE 1 TABLET BY MOUTH THREE TIMES DAILY (DME) FreeStyle Mohan 3 Plus Sensor Device See Rx Instructions .Route Qty: 2 2RF Rx Instructions: change every 15 days Eliquis 2.5 mg tablet See Rx Instructions .ROUTE .COMPLEX Qty: 60 3RF Dose Instruction: TAKE 1 TABLET BY MOUTH TWICE DAILY Rx Instructions: TAKE 1 TABLET BY MOUTH TWICE DAILY clonidine HCl 0.1 mg tablet See Rx Instructions .ROUTE .COMPLEX Qty: 180 0RF Dose Instruction: TAKE 1 TABLET(0.1 MG) BY MOUTH TWICE DAILY. MAY REPEAT EVERY 1 HOUR. NOT TO EXCEED 0.7 MG 7 TABLETS PER 24 HOURS Rx Instructions: TAKE 1 TABLET(0.1 MG) BY MOUTH TWICE DAILY. MAY REPEAT EVERY 1 HOUR. NOT TO EXCEED 0.7 MG 7 TABLETS PER 24 HOURS (DME) pen needle, diabetic 31 gauge x 5/16 needle See Rx Instructions .ROUTE .COMPLEX Qty: 400 2RF Dose Instruction: USE FIVE TIMES DAILY Rx Instructions: USE FIVE TIMES DAILY quetiapine 50 mg tablet See Rx Instructions .ROUTE .COMPLEX Qty: 60 1RF Dose Instruction: TAKE 1 TABLET BY MOUTH TWICE DAILY Rx Instructions: TAKE 1 TABLET BY MOUTH TWICE DAILY (DME) FreeStyle Precision Aden Strips Strip See Rx Instructions .ROUTE .COMPLEX Qty: 300 3RF Dose Instruction: USE ONCE DAILY WITH CALIBRATION Rx Instructions: Use three times a day icosapent ethyl [Vascepa] 1 gram capsule 2 g PO Q12H 90 Days Qty: 360 2RF lisinopril 5 mg tablet 5 mg PO HS Qty: 90 3RF tramadol 50 mg tablet 50 mg PO HS PRN (Reason: pain, severe) Qty: 60 0RF amlodipine [Norvasc] 5 mg tablet 5 mg PO DAILY Qty: 90 1RF Follow-up/Referrals: Javy Monsivais MD [Primary Care Provider, Family Practice] Time of Disposition: 22:36
[2025-01-20] MEDS: SULFAMETHOXAZOLE/TRIMETHOPRIM 800/160 MG DS TABLET 1 TAB PO (20:21)
[2025-01-20 21:22] LABS: Add Urine Microscopic? YES; Appearance Urine Turbid (Clear); Glucose Urine UA Negative (Negative); Leukocyte Esterase Ur 3+ LEU/UL (Negative); Nitrate Urine Positive (Negative); Non Pathogenic Casts 0-2; Specific Grav Ur 1.010 (1.001-1.035)
== END 2025-01-20 22:44 | disposition home or self-care (01) ==
PROVIDERS: Emergency Provider Student in an Organized Health Care Education/Training Program; PCP Family Medicine
DX: T83.511A Infection and inflammatory reaction due to indwelling urethral catheter, initial encounter (principal); F03.918 Unspecified dementia, unspecified severity, with other behavioral disturbance; I87.2 Venous insufficiency (chronic) (peripheral); E11.43 Type 2 diabetes mellitus with diabetic autonomic (poly)neuropathy; K31.84 Gastroparesis; E11.22 Type 2 diabetes mellitus with diabetic chronic kidney disease; I12.9 Hypertensive chronic kidney disease with stage 1 through stage 4 chronic kidney disease, or unspecified chronic kidney disease; N18.30 Chronic kidney disease, stage 3 unspecified; N31.9 Neuromuscular dysfunction of bladder, unspecified; E78.2 Mixed hyperlipidemia; E03.9 Hypothyroidism, unspecified; E55.9 Vitamin D deficiency, unspecified; E66.01 Morbid (severe) obesity due to excess calories; Z68.41 Body mass index [BMI] 40.0-44.9, adult; J44.9 Chronic obstructive pulmonary disease, unspecified; G47.33 Obstructive sleep apnea (adult) (pediatric); M10.9 Gout, unspecified; G24.01 Drug induced subacute dyskinesia; G89.29 Other chronic pain; F41.9 Anxiety disorder, unspecified; F33.3 Major depressive disorder, recurrent, severe with psychotic symptoms; F51.04 Psychophysiologic insomnia; Z86.711 Personal history of pulmonary embolism; Z90.710 Acquired absence of both cervix and uterus; Z77.22 Contact with and (suspected) exposure to environmental tobacco smoke (acute) (chronic); Y84.6 Urinary catheterization as the cause of abnormal reaction of the patient, or of later complication, without mention of misadventure at the time of the procedure; Z79.899 Other long term (current) drug therapy; Z79.4 Long term (current) use of insulin; Z79.01 Long term (current) use of anticoagulants
CPT/HCPCS: 51702; 81001; 87077; 87086; 87186; 99283; A9270